=== PATIENT | male | born 1945 | race Caucasian/White ===

== ENCOUNTER → 2017-09-15 | Outpatient (CLI) | payer OTHER ==
[~2017-09-15] MED LIST: ASPI81TA28 PO; ATOR-24 PO; CITA40TA12 PO; CLOP1TAB15 PO; ENAL1TAB29 PO; FENO134C2 PO; FIBER THERAPY PO; LEVO25TA5 PO; METF-384 PO; RXC5 PO; SITA100T3 PO; TRAM-10 PO; ZOLP5TAB PO
--- NOTE | 2017-09-15 11:47 | DIAGNOSTIC IMAGING REPORT ---
L-SPINE MIN 4 VIEWS ROUTINE CLINICAL HISTORY: 72 years-old Male presenting with LUMBAGO. TECHNIQUE: Frontal, bilateral oblique, lateral, and coned in lateral views of the lumbar spine were obtained. COMPARISON: None. FINDINGS: No scoliosis. Normal lumbar lordosis. Vertebral bodies maintain normal height and alignment. Intervertebral disc height loss noted at L4-5 and L5-S1, where there are the greatest degenerative changes in the lumbar spine. At these levels, osteophytosis and facet arthropathy noted. This appears to result in osseous neural foraminal narrowing at L4-5 and L5-S1. Degenerative changes also noted at T11-12 and T12-L1. No radiographic evidence of a compression deformity or subluxation. Splenic arterial calcifications noted. Multiple coil chris evidence of prior hernia repair. Nonobstructive bowel gas pattern. Atherosclerosis. IMPRESSION: Degenerative changes of the lumbar spine primarily at L4-5 and L5-S1, where there is suspected osseous neural foraminal narrowing. Electronically signed by: Giovanni Owen M.D. 09/15/2017 11:46 AM Dictated Date/Time: 09/15/2017 11:43 AM
== END | disposition home or self-care (01) ==
LOC: C.RADBC 11:12
PROVIDERS: ATTEND Physician Assistant Medical
DX: M54.5 Low back pain (principal); M51.36 Other intervertebral disc degeneration, lumbar region; M51.37 Other intervertebral disc degeneration, lumbosacral region

== ENCOUNTER → 2017-09-27 | Outpatient (CLI) | payer OTHER ==
--- NOTE | 2017-09-27 20:01 | DIAGNOSTIC IMAGING REPORT ---
MRI OF THE LUMBAR SPINE WITHOUT IV CONTRAST CLINICAL HISTORY: Low back pain. Right-sided sciatica. COMPARISON STUDY: Radiographs of the lumbar spine dated 09/15/2017. TECHNIQUE: MRI of the lumbar spine is performed utilizing various T1 and T2-weighted sequences in the axial and sagittal planes. IV contrast was not administered for this examination. The examination is modestly degraded by motion artifact. FINDINGS: Lumbar spine: Marrow signal intensity is heterogeneous. Vertebral body height is maintained throughout the lumbar spine. Minimal retrolisthesis is seen at T12-L1 and L1-L2. There is straightening of the lumbar lordosis. Anterior osteophytes are seen throughout. The transverse and spinous processes appear intact. There is no evidence of spondylolysis. Chronic multilevel degenerative endplate change is seen at all levels. Advanced endplate edema is seen at T12-L1 and L4-L5. Mild endplate edema is seen at L1-L2 and L3-L4. Intervertebral discs: Degenerative disc desiccation is seen throughout the lumbar spine. Moderate disc space narrowing seen at all levels, with jpbntxed-wv-oyvdvx narrowing seen at L1-L2, L4-L5, and L5-S1. Spinal cord: The visualized spinal cord is normal in morphology and signal intensity. The conus medullaris terminates at the level of L1. The nerve roots of the cauda equina are normal in morphology. T12-L1: There is posterior disc bulge with annular fissure. No significant central canal stenosis is seen. There is mild right-sided subarticular stenosis which may impinge on the exiting T12 nerve root. The neural foramina are patent. L1-L2: There is broad-based posterior disc bulge. No significant acquired compromise of the central canal is identified. There is bilateral subarticular stenosis, left greater than right. Facet arthropathy causes mild left-sided neural foraminal stenosis. L2-L3: The central canal and neural foramina are patent. Facet arthropathy is of no consequence. Lateral disc bulge causes minimal bilateral subarticular stenosis. L3-L4: There is a small posterior disc herniation with annular fissure. In conjunction with hypertrophy of the ligamentum flavum, there is joso-tl-bpsonzhh central canal stenosis at this level. The minimum AP diameter measures 6 mm. The central disc herniation impinges on the transiting nerve roots. There is bilateral subarticular stenosis, with possible impingement on the exiting bilateral L3 nerve roots. Facet arthropathy causes minimal bilateral neural foraminal stenosis. L4-L5: There is a small disc herniation eccentric to the right with annular fissure. There is only mild acquired compromise of the central canal at this level with a minimum AP diameter of 9 mm. There is obliteration of the right subarticular space with impingement of the exiting right L4 and the transiting right-sided nerve roots. There is also left-sided subarticular stenosis. Facet arthropathy causes puwcsrlq-md-kgurtc right and minimal left neural foraminal stenosis. L5-S1: There is a small central disc herniation with annular fissure. There is no significant acquired compromise of the central canal. This likely impinges on the nerve roots of the cauda equina centrally. There is bilateral subarticular stenosis, severe on the left with impingement of the exiting left L5 nerve root. Facet arthropathy causes severe left and moderate right neural foraminal stenosis. Sacrum: The visualized sacrum is normal in morphology and signal intensity. Soft tissues: There is fatty atrophy of the paraspinous musculature. Right renal cysts are observed. IMPRESSION: 1. Knugoonf-cz-jrwltrgj lumbosacral spondylosis with disc herniations at L3-L4, L4-L5, and L5-S1 as above. See discussion for detailed qgoyv-vg-ihoau analysis. 2. Advanced degenerative disc disease with multilevel endplate change/endplate edema. This is greatest at T12-L1. See above. 3. No destructive bony process is identified. Dictated: 09/27/2017 5:16 PM Transcribed: 09/27/2017 8:00 PM Win Electronically signed by: Holger Mora M.D. 09/27/2017 8:12 PM Dictated Date/Time: 09/27/2017 5:16 PM
== END | disposition home or self-care (01) ==
LOC: C.MRIBC 16:32
PROVIDERS: ATTEND Physician Assistant Medical
DX: M54.16 Radiculopathy, lumbar region (principal)

== ENCOUNTER → 2018-05-11 | Outpatient (CLI) | payer OTHER ==
[~2018-05-11] MED LIST changes: -FENO134C2 PO; +FENO145T26 PO; +OXYC1CAP5 PO; +PRD/1 PO; -RXC5 PO
--- NOTE | 2018-05-11 12:17 | DIAGNOSTIC IMAGING REPORT ---
CHEST 2 VIEWS ROUTINE CLINICAL HISTORY: Preoperative chest COMPARISON STUDY: No previous studies for comparison. FINDINGS: There are postsurgical changes of a midline sternotomy. The heart is normal in size. There is mild aortic tortuosity. There is no failure. There is no focal pulmonary consolidation. There are no pleural effusions. There are postsurgical changes involving the left shoulder.[ IMPRESSION: No active disease in the chest. Electronically signed by: Barrera Marin M.D. 05/11/2018 12:16 PM Dictated Date/Time: 05/11/2018 12:16 PM
[2018-05-11 12:39] LABS: INR 1.1 (0.9-1.1); PTT PATIENT 23.8 SECONDS (21.0-31.0)
== END | disposition home or self-care (01) ==
LOC: C.CPL 14:39
PROVIDERS: ATTEND Orthopaedic Surgery Orthopaedic Surgery of the Spine
DX: Z01.818 Encounter for other preprocedural examination (principal)

== ENCOUNTER 2018-05-23 05:11 | Observation (INO) | payer OTHER ==
[2018-05-04 12:59] VITALS: BMI 34.0
--- NOTE | 2018-05-10 12:27 | PAT Medication Instructions ---
Service Date May 10, 2018. Current Home Medication List Aspirin (Aspirin Ec), 81 MG PO HS Atorvastatin (Lipitor), 40 MG PO HS Citalopram Hydrobromide (Celexa), 40 MG PO QAM Clopidogrel (Plavix), 75 MG PO QAM Enalapril Maleate (Vasotec), 2.5 MG PO BID Fenofibrate (Tricor ), 134 MG PO QPM Levothyroxine Sodium (Levothyroxine Sodium), 1 TAB PO QAM Metformin Hcl (Glucophage), 1,000 MG PO BID Oxycodone Hcl (Oxycodone Hcl), 1 CAP PO UD PRN for Pain Prednisone (Prednisone), Unknown Dose PO UD Sitagliptin Phosphate (Januvia), 100 MG PO QAM Tramadol (Ultram), 50 MG PO for RN Zolpidem Tartrate (Ambien), 5 MG PO HS PRN for PRN [Fiber Therapy], 1 TAB PO BID Medication Instructions For Your Scheduled Surgery - Continue as directed: Prednisone (Prednisone), Unknown Dose PO UD - Check with surgeon and prescribing physician for instructions: Clopidogrel (Plavix), 75 MG PO QAM Aspirin (Aspirin Ec), 81 MG PO HS - Hold the following medications the morning of surgery: [Fiber Therapy], 1 TAB PO BID Sitagliptin Phosphate (Januvia), 100 MG PO QAM Metformin Hcl (Glucophage), 1,000 MG PO BID Enalapril Maleate (Vasotec), 2.5 MG PO BID - Take the following medications the morning of surgery with a sip of water: Oxycodone Hcl (Oxycodone Hcl), 1 CAP PO UD PRN for Pain (okay to take up to 4 hours prior to surgery if needed) Levothyroxine Sodium (Levothyroxine Sodium), 1 TAB PO QAM Citalopram Hydrobromide (Celexa), 40 MG PO QAM Tramadol (Ultram), 50 MG PO for RN(okay to take up to 4 hours prior to surgery if needed) - Hold the following medications as scheduled the night before surgery: Fenofibrate (Tricor ), 134 MG PO QPM - Take the following medications as scheduled the night before surgery: [Fiber Therapy], 1 TAB PO BID Tramadol (Ultram), 50 MG PO for RN (if needed) Zolpidem Tartrate (Ambien), 5 MG PO HS PRN for PRN (if needed) Oxycodone Hcl (Oxycodone Hcl), 1 CAP PO UD PRN for Pain (if needed) Metformin Hcl (Glucophage), 1,000 MG PO BID Atorvastatin (Lipitor), 40 MG PO HS Enalapril Maleate (Vasotec), 2.5 MG PO BID If you have any questions please call us at [phone] or [phone] or [phone]
[2018-05-11 11:57] VITALS: BMI 33.0
--- NOTE | 2018-05-20 16:50 | HISTORY & PHYSICAL EXAMINATION ---
DATE OF ADMISSION: 05/23/2018 CHIEF COMPLAINT: Back pain, lower extremity difficulty, paresthesias, numbness, and tingling. Working diagnosis of disk herniation of the spine. He has failed conservative care. MEDICAL HISTORY: Heart disease, diabetes, rheumatoid, high cholesterol, hypertension. PAST SURGICAL HISTORY: Bypass surgery, removal of a cyst. ALLERGIES: . FAMILY HISTORY: Heart disease and diabetes. SOCIAL HISTORY: . No alcohol, no tobacco. Moderately active. REVIEW OF SYSTEMS: He denies any fevers, sweats, chills. Ears, nose, and throat negative. Admits to some heart difficulties. Positive for change in bowel habits. Denies urgency, frequency. Denies memory loss, confusion. Admits to joint pain, weakness and muscle pain. MEDICATIONS: Includes fiber therapy, Plavix, Celexa, Synthroid, metoprolol, Ambien. PHYSICAL EXAMINATION: GENERAL: He is alert, oriented gentleman. VITAL SIGNS: Blood pressure 130/80, pulse 80, respirations 16. CARDIAC: Normal S1, S2, no S3. LUNGS: Clear to auscultation. No rales, rhonchi, wheezing. ABDOMEN: Soft, nontender. MUSCULOSKELETAL: He has 5/5 motor strength, some pain with straight leg raising. Slight limp, decreased range of motion, pain with percussion. Normal reflex examination. IMAGES: Demonstrate diskogenic issues of lumbar spine, L4-L5 stenosis, and herniation. PLAN: Includes a laminectomy and foraminotomy, L4-L5 lumbar spine.
[2018-05-23] VITALS (10 sets, daily range): BP systolic 114–150; BP diastolic 68–92; PULSE 71–88; TEMP 36.4–36.8; O2SAT 94–98; Ht 167.6 cm; Wt 92.5 kg
[~2018-05-23] VITALS: Ht 167.6 cm; Wt 92.5 kg
[2018-05-23] MEDS ORDERED: SODIUM CHLORIDE 0.9% 1000ML 1,000 ML IV SCH ×2 (06:00→09:05)
[2018-05-23] MEDS ORDERED: LACTATED RINGER'S 1000ML 1,000 ML IV SCH (06:00)
[2018-05-23] MEDS ORDERED: CEFAZOLIN 2000MG IV PUSH 15 ML IV SCH (06:00)
[2018-05-23] MEDS ORDERED: FENTANYL CITRATE INJ 50 MCG/1 ML 2 ML VIAL ONE ×2 (06:45→07:56)
[2018-05-23] MEDS ORDERED: MIDAZOLAM HCL 1 MG/ML 2ML VIAL ONE (06:45)
[2018-05-23] MEDS ORDERED: ROCURONIUM BROMIDE 10 MG/ML 5 ML VIAL ONE (06:47)
[2018-05-23] MEDS ORDERED: LIDOCAINE HCL 2% 2 ML VIAL (20MG/ML) ONE (06:47)
[2018-05-23] MEDS ORDERED: PROPOFOL IV EMULSION 10 MG/ML 20 ML VIAL ONE (06:47)
[2018-05-23] MEDS ORDERED: ONDANSETRON INJ 2 MG/ML 2 ML VIAL ONE (06:52)
[2018-05-23] MEDS ORDERED: DEXAMETHASONE SOD INJ 4 MG/ML VIAL ONE (06:52)
[2018-05-23] MEDS ORDERED: VANCOMYCIN HCL 1000MG/20ML VIAL ONE (07:17)
[2018-05-23] MEDS ORDERED: GELATIN SPONGE SZ 100 ONE (07:18)
[2018-05-23] MEDS ORDERED: BACITRACIN 50000 UNIT VIAL ONE (07:18)
[2018-05-23] MEDS ORDERED: BUPIVACAINE/EPINEPHRINE 0.5% MPF 1:200,000 30 ML VIAL ONE (07:18)
[2018-05-23] MEDS ORDERED: THROMBIN FOR SOLN 20000 UNIT KIT ONE (07:18)
--- NOTE | 2018-05-23 07:24 | History & Physical Bridge Note ---
H&P Re-Evaluation Bridge Note: I have examined the patient, reviewed the History & Physical and in the interval since the performance of the History & Physical I have noted the following changes of clinical significance: No changes noted
[2018-05-23] MEDS ORDERED: ONDANSETRON INJ 2 MG/ML 2 ML VIAL IV PRN ×2 (08:00→09:15)
[2018-05-23] MEDS ORDERED: ATROPINE SULFATE 0.1 MG/ML 5ML SYR IV PRN (08:00)
[2018-05-23] MEDS ORDERED: LABETALOL HCL IV 5 MG/ML 20ML IV PRN (08:00)
[2018-05-23] MEDS ORDERED: NEOSTIGMINE METHYLSULFATE 5 MG/5 ML SYR ONE (08:42)
[2018-05-23] MEDS ORDERED: GLYCOPYRROLATE INJ 0.2 MG/ML VIAL ONE (08:42)
--- NOTE | 2018-05-23 08:54 | DIAGNOSTIC IMAGING REPORT ---
INTRAOPERATIVE RADIOGRAPH CLINICAL HISTORY: L4-L5 laminectomy. Fluoroscopy time: 2 seconds. FINDINGS: A single spot fluoroscopic view of the lower lumbar spine is presented. Surgical probes project posteriorly from L3 to S1. IMPRESSION: Intraoperative image from L4 -L5 spinal fusion as above. Electronically signed by: Holger Mora M.D. 05/23/2018 8:53 AM Dictated Date/Time: 05/23/2018 8:52 AM
--- NOTE | 2018-05-23 09:00 | [facility] Post Operative Brief Note ---
Immediate Operative Summary Operative Date May 23, 2018. Pre-Operative Diagnosis Spinal Stenosis, Disc Herniation L4-5 Post-Operative Diagnosis Spinal Stenosis, Disc Herniation L4-5 Procedure(s) Performed L4-5 Laminectomy/Foraminotomy Surgeon Dr. Sibley Manufacturing Software Engineer Surgeon(s) Iftikhar Chang PA-C Estimated Blood Loss 75 cc Findings Consistent with Post-Op Diagnosis Specimens none per surgeon Anesthesia Type General Complication(s) none Overlapping Procedure I was immediately available: during the entire case
[2018-05-23] MEDS ORDERED: MAGNESIUM HYDROXIDE SUSP 30 ML UDC PO PRN (09:15)
[2018-05-23] MEDS ORDERED: METOCLOPRAMIDE HCL INJ 5 MG/ML 2 ML VIAL IV PRN (09:15)
[2018-05-23] MEDS ORDERED: ZOLPIDEM TARTRATE 5 MG TAB PO PRN (09:15)
[2018-05-23] MEDS ORDERED: LORAZEPAM 1 MG TAB PO PRN (09:15)
[2018-05-23] MEDS ORDERED: ACETAMINOPHEN 325 MG TAB PO PRN (09:15)
[2018-05-23] MEDS ORDERED: PROMETHAZINE HCL INJ 12.5 MG in SODIUM CHLORIDE 0.9% 50ML 50 ML IV PRN (09:15)
[2018-05-23] MEDS ORDERED: OXYCODONE/ACETAMINOPHEN 5-325 TAB PO PRN ×2 (09:15)
[2018-05-23] MEDS ORDERED: LORAZEPAM INJ 1 MG in SYRINGE 0 ML IV PRN (09:15)
[2018-05-23] MEDS ORDERED: HYDROmorphone INJ 1 MG/ML SYR IV PRN ×2 (09:15)
--- NOTE | 2018-05-23 09:16 | OPERATIVE REPORT ---
DATE OF OPERATION: 05/23/2018 PREOPERATIVE DIAGNOSIS: Spinal stenosis, lumbar spine. POSTOPERATIVE DIAGNOSIS: Same. PROCEDURE: Include a laminectomy, foraminotomy, partial facetectomy, decompression of neural elements bilaterally at L3-L4, L4-5 and L5-S1. COMPLICATIONS: Zero. ESTIMATED BLOOD LOSS: 75 mL SURGEON: Silvio Sibley DO BANK OFFICER: Iftikhar Chang PA-C. DESCRIPTION OF PROCEDURE: The patient was taken to the operating room, a general intubated anesthetic provided to the patient. Safely placed prone, scrubbed, prepped and draped sterile. Formal timeout provided. I assessed the patient preop. He had some stenosis up to the underside of 3-4, down to the upper side of 5-1. Thus I made a skin incision from 3 down to the sacrum dissecting the soft tissue, same plane and came down on the lamina 5-1, 4-5, 3-4 decompressed the neural elements very carefully and very safely. There was no injury to the dura or associated nerve roots. The foramen were probed and visualized and free of obstruction. We irrigated and closed in layers over vancomycin powder with 1 Vicryl, 2-0 and 3-0 nylon on the skin. Sterile dressings applied. The patient returned to PACU improved, stable condition. There were no apparent complications. Sponge and needle count correct at the close. No implants used. I attest to the content of the Intraoperative Record and any orders documented therein. Any exception s are noted below.
[2018-05-23] MEDS: HYDROmorphone INJ 2 MG/ML SYR/VIAL IV PRN ×4 (09:28→09:43)
--- NOTE | 2018-05-23 10:05 | Anesthesiology Progress Note ---
Anesthesia Post Op Note Date & Time May 23, 2018 at 10:04 Vital Signs Pain Intensity: 4 Vital Signs Past 12 Hours Date Time Temp Pulse Resp B/P (MAP) Pulse Ox O2 Delivery O2 Flow Rate FiO2 05/23/18 10:02 36.6 05/23/18 09:56 83 16 150/79 98 Nasal Cannula 4 05/23/18 09:46 90 16 169/90 98 Nasal Cannula 4 05/23/18 09:36 36.2 90 16 150/95 98 Nasal Cannula 4 05/23/18 09:26 87 16 142/89 98 Oxymask 10 05/23/18 09:16 90 16 148/84 97 Oxymask 10 05/23/18 09:08 36.2 102 16 143/87 94 Oxymask 10 05/23/18 05:55 36.5 71 20 114/90 (98) 95 Room Air Notes Mental Status: alert / awake / arousable, participated in evaluation Pt Amnestic to Procedure: Yes Nausea / Vomiting: adequately controlled Pain: adequately controlled Airway Patency, RR, SpO2: stable & adequate BP & HR: stable & adequate Hydration State: stable & adequate Anesthetic Complications: no major complications apparent
[2018-05-23] MEDS ORDERED: IV FLUIDS COMPLETED PRN (11:30)
--- NOTE | 2018-05-23 14:02 | Discharge Instructions ---
Discharge Instructions Date of Service May 23, 2018. Admission Reason for Admission: Spinal Stenosis, Disc Herniation Discharge Discharge Diagnosis / Problem: same Discharge Goals Goal(s): Improve function Activity Recommendations Activity Limitations: as noted below Lifting Limitations: until after follow-up appointment Exercise/Sports Limitations: until after follow-up appointment Shower/Bathe: keep incision dry . Instructions / Follow-Up Instructions / Follow-Up MEDICATIONS: Please take your prescriptions as instructed at your pre-op appointment. SPECIAL CARE: The following information is intended to answer some of the common questions and concerns regarding your surgery. Each patient is an individual and receives individual counselling throughout the course of treatment, from diagnosis to surgery all the way through recovery. What follows is not an exhaustive list, but should be a useful guide to some of the common questions and concerns patients have regarding their surgeries. These are not provided to keep you from calling us; rather, they give you something accurate and concrete to reference as you recover from your procedure. If you need us, we are available to you. As always, if you are not sure about something, call us at [phone]. MEDICAL EMERGENCIES: For these conditions, call 911 or go to your local hospital-based Emergency Department - not [facility] or equivalent. * Paralysis * Severe chest pain or difficulty breathing * Swelling or redness of either leg Spine procedures can be rather complex and though complications are rare, they do occur. In such cases, effective advice regarding emergency situations cannot always be addressed over the telephone. You may be referred to the emergency department for more effective management of your problem. Activity Limitations: It is important to give your body time to heal, so please limit your activities : * In general, don't do anything that moves your spine too much. You should avoid contact sports, twisting or heavy lifting while you recover. * 5-10 pounds is all you should attempt to lift. * You should not plan on driving for approximately 3 weeks and you should avoid traveling more than 30-45 minutes at a time. Longer trips should be broken down with walking breaks spaced appropriately. * Physical therapy is not usually required. * Walking and good posture practices will help you recover and regain your function. * Avoid straining or sudden changes in position. * In general, the goal is to take it easy and recover. Don't cause any new problems. Just relax. Showers: * Do not take a bath, use a Jacuzzi or hot tub or otherwise submerge your incision. * It is usually safe to take a shower 4-5 days after your surgery. * Your incision does not require any special creams or ointments. * Simply clean it with soap and water, dry and re-dress with a clean bandage afterwards. Incision: * Keep incision clean, dry and protected until your first follow-up appointment. * Some amount of drainage and redness is normal. Any drainage should be fairly clear and not have a foul odor. * If you feel anything is wrong or you have excessive drainage, please call us. * Your stitches and chris will be removed 10-14 days after your surgery. At the time of your first post-op visit. * Neck surgeries are typically closed with a suture underneath the skin. The steri-strips over the incision should be maintained until we see you in the office. Bracing: * You may be provided with a back or neck brace to encourage good posture and prevent injury. It will remind you not to do too much as you heal and will alert others to the fact that you have had a surgery. * Back braces may be removed for showers and when you are resting at home. They must be worn when you are walking around for any period of time or for travel. * For neck surgery, you will likely be provided with two cervical collars. The soft collar ([place] or foam rubber) is worn most commonly throughout the day and while sleeping. The plastic collar (provided at the hospital) is for showering/bathing. * Except while eating, collars should remain in place. More specifically, bracing is provided for a purpose and should be worn. * Please obtain your brace or collars prior to your operation and bring them to the hospital with you on the day of surgery. * You should also bring your collars to your post-op appointment with Dr. Sibley. You should always take good care of your body and practice healthy habits, especially following surgery. You should: * Follow your doctor's treatment plan * Sit and stand properly with good posture (ears over shoulders, shoulders over hips) Don't slouch * Learn to lift correctly * Exercise regularly (low-impact aerobic exercise is especially good, but check with your doctor first) * Generally, be up and walking for 5-10 minutes at a time at least 3-4 times per day from the day you get home * Increasing walking to tolerance until you can walk for 20-30 minutes at a time * Attain and maintain a healthy body weight * Eat healthy foods ( a well-balanced, low-fat diet rich in fruits and vegetables) and get enough calcium * Avoid excessive use of alcohol When to call our office - If you notice any of the following: * Increased pain not relieve by pain medicine * Fevers greater then 100 degrees F, chills or flu symptoms * Increased redness around incision * Drainage from the incision that is not clear * Any foul smelling drainage * Swelling or fluid collection beneath the skin Miscellaneous: * In the hospital, you may be given a walker or cane for support while walking. These are temporary needs and are intended to prevent injuries due to falls. You may discontinue them when you feel strong and steady enough on your feet. * Sleep in a comfortable position. We find that many patients find a lounge chair or recliner with several pillows to be beneficial in the early post-operative period. * The support stockings should be used for 7-10 days and may be discontinued when you are back to walking more and conducting usual household activities. No problem is insignificant. We are here to help you and get you well. Contact us at [phone]. Definitions: Foraminotomy: If part of the disc or a bone spur (osteophyte) is pressing on a nerve as it leaves the vertebra (through an exit called the foramen), a foraminotomy may be done. Otomy means "to make an opening." A foraminotomy is making the opening of the foramen larger, so the nerve can exit without being compressed. Laminotomy: Similar to the foraminotomy, a laminotomy makes a larger opening, this time in your bony plate protecting your spinal canal and spinal cord (the lamina). The lamina may be pressing on your nerve, so the surgeon may make more room for the nerves using a laminotomy. Laminectomy: Sometimes, a laminotomy is not sufficient. The surgeon may need to remove all or part of the lamina. This procedure is called a laminectomy. This can often be done at many levels without any harmful effects. Current Hospital Diet Patient's current hospital diet: Diabetes Type 2 Diet Discharge Diet Recommended Diet: Diabetes Type 2 Diet Procedures Procedures Performed: L4-5 Laminectomy/Foraminotomy Pending Studies Studies pending at discharge: no Medical Emergencies . Who to Call and When: Medical Emergencies: If at any time you feel your situation is an emergency, please call 911 immediately. . Non-Emergent Contact Non-Emergency issues call your: Primary Care Provider . "Provider Documentation" section prepared by Silvio Sibley. .
[2018-05-23] MEDS ORDERED: HYDR-4383 PO (14:04)
[2018-05-23] MEDS ORDERED: PHARMACY GLYCEMIC MGMT CONSULT PRN (15:39)
[2018-05-23] MEDS: DEXAMETHASONE INJ 10 MG in SYRINGE 0 ML IV SCH (16:17)
[2018-05-23] MEDS: CEFAZOLIN IV 2,000 MG in SYRINGE 0 ML IV SCH (16:17)
[2018-05-23] MEDS ORDERED: GLUCOSE 40% GEL 15 GM TUBE PO PRN (16:30)
[2018-05-23] MEDS ORDERED: GLUCOSE 10 TABS/TUBE PO PRN (16:30)
[2018-05-23] MEDS ORDERED: DEXTROSE 50% 50 ML SYR IV PRN (16:30)
[2018-05-23] MEDS ORDERED: GLUCAGON FOR INJ 1 MG VIAL IM PRN (16:30)
[2018-05-23] MEDS ORDERED: CARBOHYDRATES FOR HYPOGLYCEMIA PO PRN (16:30)
[2018-05-23] MEDS ORDERED: INSULIN GLARGINE SOLOSTAR 100 UNITS/ML 3 ML PEN SC SCH (17:15)
[2018-05-23] MEDS: INSULIN ASPART 100 UNITS/ML 3 ML PEN SC SCH ×2 (18:21→22:06)
[2018-05-23] MEDS ORDERED: ASPIRIN 81 MG ECTAB PO SCH (21:00)
[2018-05-23] MEDS ORDERED: ATORVASTATIN 40 MG TAB PO SCH (21:00)
--- NOTE | 2018-05-23 21:02 | Pharmacy Progress Note ---
Glycemic: Assessment & Plan Date of Service May 23, 2018. Assessment & Plan Item Value Date Time Bedside Glucose 228 mg/dl H 05/23/18 1708 Bedside Glucose 219 mg/dl H 05/23/18 1154 Bedside Glucose 184 mg/dl H 05/23/18 0913 Bedside Glucose 140 mg/dl H 05/23/18 0531 Pt's reported home diabetes regimen: * metformin 1000mg po BID * Januvia 100mg po daily Assessment: Pt is a type-2 diabetic and received DXM 8mg IV during surgery and ordered 10mg IV every 8 hours x 5 doses. Plan: * Basal insulin: Ordered Lantus 40 units sub-q x 1 today (based on a insulin calculator stress level ~2.5). * Correctional Insulin: Novolog Correction per scale ACHS & 0000/0400 Goal Range: Low 120 mg/dL - High 160 mg/dL Correction Factor: 20 mg/dL/unit (based on a insulin calculator stress level ~2.5) * Prandial insulin: Per carb ratio of 1 unit per 8 grams CHO consumed ( based on a insulin calculator stress level ~2.5) Pharmacy will continue to monitor patient daily and write orders per [facility], located within [facility] inpatient glycemic control protocol. Thanks. * Please note that the plan above was derived based on current level of insulin resistance and hospital stress. These recommendations are appropriate for inpatient admission only. Plan of care upon discharge will need to be reassessed to avoid potential outpatient hypo/hyperglycemia.
[2018-05-23] MEDS: ENALAPRIL MALEATE 5 MG TAB PO SCH (21:50)
[2018-05-23] MEDS: CALCIUM POLYCARBOPHIL 1 TAB PO SCH (21:50)
[2018-05-23] MEDS ORDERED: NURSING VERBAL MED ORDER ONE (22:15)
[2018-05-24] MEDS: INSULIN ASPART 100 UNITS/ML 3 ML PEN SC SCH ×4 (00:02→12:52)
[2018-05-24] MEDS: DEXAMETHASONE INJ 10 MG in SYRINGE 0 ML IV SCH ×2 (00:03→07:42)
[2018-05-24] MEDS: CEFAZOLIN IV 2,000 MG in SYRINGE 0 ML IV SCH ×2 (00:03→07:42)
[2018-05-24 03:55] VITALS: BP 109/66; PULSE 78; TEMP 36.5; O2SAT 97
[2018-05-24] MEDS ORDERED: LEVOTHYROXINE 25 MCG TAB PO SCH (06:00)
[2018-05-24] MEDS ORDERED: BISACODYL 10 MG SUPP PR PRN (06:00)
[2018-05-24] MEDS ORDERED: BISACODYL 5 MG TABEC PO PRN (06:00)
[2018-05-24 07:04] VITALS: BP 131/64; PULSE 87; TEMP 36.8; O2SAT 96
[2018-05-24] MEDS: CALCIUM POLYCARBOPHIL 1 TAB PO SCH (08:44)
[2018-05-24] MEDS: ENALAPRIL MALEATE 5 MG TAB PO SCH (08:45)
[2018-05-24] MEDS ORDERED: SITAGLIPTIN 100 MG TAB PO SCH (09:00)
[2018-05-24] MEDS ORDERED: INSULIN GLARGINE SOLOSTAR 100 UNITS/ML 3 ML PEN SC SCH (09:00)
[2018-05-24] MEDS ORDERED: CLOPIDOGREL BISULFATE 75 MG TAB PO SCH (09:00)
[2018-05-24] MEDS ORDERED: POLYETHYLENE (MIRALAX) 17 GM PACK PO SCH (09:00)
[2018-05-24] MEDS ORDERED: CITALOPRAM 40 MG TAB PO SCH (09:00)
[2018-05-24 09:57] VITALS: BP 131/64; PULSE 87; TEMP 36.8; O2SAT 96
--- NOTE | 2018-05-24 11:05 | DISCHARGE SUMMARY ---
SUBJECTIVE: He has improved, stable, minimal complaints, status post surgery. Ambulatory. No issues. No shortness of breath or chest pain. OBJECTIVE: Vital signs stable. ASSESSMENT: Status post spinal surgery. PLAN: Discharged home later today. Instructions and precautions given on numerous occasions. Medication provided. Followup provided. He will call if problems.
[2018-05-24 11:31] VITALS: BP 126/64; PULSE 84; TEMP 36.3; O2SAT 95
== END 2018-05-24 13:41 | disposition home or self-care (01) ==
LOC: C.ACU 05:11 → C.3E 09:09 → ENRESERV 09:23
PROVIDERS: ADMIT Orthopaedic Surgery Orthopaedic Surgery of the Spine; ATTEND Orthopaedic Surgery Orthopaedic Surgery of the Spine
DX: M48.061 Spinal stenosis, lumbar region without neurogenic claudication (principal); E11.9 Type 2 diabetes mellitus without complications; I25.2 Old myocardial infarction; Z95.1 Presence of aortocoronary bypass graft; I10 Essential (primary) hypertension; Z87.891 Personal history of nicotine dependence; Z86.73 Personal history of transient ischemic attack (TIA), and cerebral infarction without residual deficits; E03.9 Hypothyroidism, unspecified; E78.00 Pure hypercholesterolemia, unspecified; Z79.02 Long term (current) use of antithrombotics/antiplatelets; Z79.899 Other long term (current) drug therapy

== ENCOUNTER 2021-09-23 12:14 | Observation (INO) ==
[2021-09-23 12:53] LABS: Hematocrit (blood only) 39.7 % (42-52); Hemoglobin 13.8 g/dL (14.0-18.0); Mean Corpuscular Hgb Conc 34.8 g/dL (32-36); Mean Corpuscular Volume 89.2 fL (80-100); Mean Platelet Volume 11.8 fL (7.4-10.4); Platelet Count 159 K/uL (130-400); RDW Coefficient of Variation 13.6 % (11.5-14.5); RDW Standard Deviation 44.6 fL (36.4-46.3); Red Blood Count 4.45 M/uL (4.7-6.1)
[2021-09-23 13:07] LABS: INR 1.1 (0.9-1.1); Partial Thromboplastin Time 27.3 Seconds (21.0-31.0); Prothrombin Time 11.3 Seconds (9.0-12.0)
[2021-09-23 13:16] LABS: Albumin Level 3.9 gm/dl (3.4-5.0); BUN Creatinine Ratio 15.7 (10-20); Calcium 9.5 mg/dl (8.5-10.1); Creatinine Clr Calc Pharmacy 65.2 ml/min; Est GFR (Non-African American) 67.3 ml/min; Potassium 4.1 mmol/L (3.5-5.1)
[2021-09-23 13:19] LABS: Albumin Globulin Ratio 1.1 (0.9-2); Bilirubin,Total 0.9 mg/dl (0.2-1); Globulin 3.7 gm/dl (2.5-4.0); Total Protein 7.6 gm/dl (6.4-8.2)
[2021-09-23] MEDS ORDERED: cefTRIAXone SODIUM 1,000 MG/50 ML BAG IV STA (14:22)
[2021-09-23] MEDS ORDERED: PANTOprazole 80 MG in DEXTROSE 5% 100 ML IV ONE (14:22)
[2021-09-23] MEDS ORDERED: PANTOPRAZOLE BOLUS/DRIP 1 EA IV STA (14:22)
[2021-09-23] MEDS ORDERED: FAMOTIDINE 20MG IV PUSH 20 MG/5 ML SYR IV STA (14:22)
[2021-09-23] MEDS ORDERED: ONDANSETRON INJ 2 MG/ML 2 ML VIAL IV STA (14:24)
--- NOTE | 2021-09-23 14:55 | CT Scan Report ---
CT abd pelvis wo con CLINICAL HISTORY: Bilateral flank pain. Bloody stool. Nausea. COMPARISON STUDY: No previous studies for comparison. CT DOSE: 985.36 mGy.cm TECHNIQUE: Standard CT of the Abdomen and Pelvis was performed without IV contrast. The patient did not receive oral contrast. A dose lowering technique was utilized adhering to the principles of NEAL [place] FINDINGS: Lung base: The lung bases are clear. There is mild coronary artery calcification. Abdominal cavity: There is no evidence for abdominal mass, adenopathy or ascites. There is a small le ft inguinal hernia containing peritoneal fat. Liver: The liver is homogeneous in attenuation on these limited noncontrast images.. Spleen: The spleen is homogeneous in attenuation on these limited noncontrast images. Pancreas: The pancreas is homogeneous in attenuation on these limited noncontrast images. Gall Bladder: The gallbladder is well distended with no evidence for cholelithiasis, wall thickening or pericholecystic edema.. Adrenal glands: The adrenal glands are normal in size and attenuation on these limited noncontrast im ages. Kidneys: The kidneys are homogeneous in attenuation on these limited noncontrast images. There is no evidence for gross renal mass, calculus or hydronephrosis bilaterally. Bowel: The bowel loops are normally placed within the abdomen and pelvis without evidence for dilatat ion or obstruction. There is diverticulosis of the descending and sigmoid colon without evidence for diverticulitis. However, there is diffuse mucosal thickening which cannot be fully evaluated due to l ack of distention with oral contrast. There are no inflammatory changes present. There is no evidence for free air. There is no evidence for an inflamed appendix. Bladder: There is distention of the urinary bladder with no evidence for focal bladder wall thickenin g, calculus or diverticulum. : There is no evidence for pelvic mass or adenopathy. The prostate is mildly enlarged. Vasculature: There is no evidence for focal aneurysmal dilatation of the abdominal aorta. Atheroscler otic calcification is present. Osseous structures: There is no acute osseous pathology. Degenerative changes are seen throughout the lumbar spine. IMPRESSION: 1. Diverticulosis without evidence for diverticulitis. However, there is prominent mucosal thickening of the sigmoid colon which cannot be fully evaluated due to lack of distention with oral contrast. 2. Otherwise, no acute intra-abdominal or pelvic abnormality on these limited noncontrast images. 3. Negative kidneys. 4. Distention of the bladder. 5. Additional nonacute findings are delineated above. ACT 112: Negative or not required by law. Electronically signed by: Lefty Carcamo M.D. 09/23/2021 2:53 PM
[2021-09-23] MEDS ORDERED: DICYCLOMINE HCL 10 MG CAP PO PRN (15:45)
[2021-09-23] MEDS: PANTOprazole 40 MG in DEXTROSE 5% 100 ML IV SCH ×2 (15:45→21:28)
--- NOTE | 2021-09-23 15:47 | Gastrointestinal Consultation ---
Date of Consultation September 23, 2021 Assessment & Plan (1) Rectal bleeding: (2) Abdominal pain: (3) Nausea & vomiting: Pt is a 76 yo male w symptoms of n/v, abd pain, bloating, black stools yesterday (likely related to Peptobismol use) and rectal bleeding today. + mild anemia but normal BUN. CT w/o acute findings. Hx of hiatal hernia, gastritis, int hemorrhoids, L sided diverticuli DDx: PUD, gastroenteritis, diverticular and hemorrhoidal bleeding - Monitor blood ct and transfuse prn - Cover with PPI BID - CL diet today, NPO after midnight for possible EGD tomorrow if blood ct dropping and continued s/s of GI bleeding - Stool cx and Cdiff checks - Dicyclomine 10mg TID prn abd cramping - Symptomatic management otherwise Supervising Physician Co-Signing Physician Notes 76 yo male admitted with symptoms of nausea/vomiting, gas, bloating, reported black pellet stools then rectal bleeding that was bright today. Took Peptobismol recently for his symptoms. No prior use of blood thinners in 10 years abd - protuberant, soft, prior abd surgical scars Labs reviewed- no bun rise, slightly low hgb 13.8 CT A/P reviewed Agree with further plan of care as above. History of Present Illness Reason for Consultation: N/V, Abd pain, rectal bleeding Requesting Physician: Aurora POWERS Attending Physician: Dr. Mily Cameron History of Present Illness Pt is a 76 y/o male who presented to ED w c/o abdominal discomfort, n/v, bloating in the last 4 days. He had taken Peptobismol couple of days ago. His stools yesterday was black, semi formed. This this AM he started having rectal bleeding. He denies fever, chills. Denies sick contact, raw/undercooked foods, antibx. Pt takes ASA 81mg daily, no anticoagulants. Workup in admission showed mild anemia w H/H 13.8/39.7. Normal BUN. CT abd/pelvis wo contrast showed diverticulosis in L colon but no diverticulitis. No other acute findings noted. Prior EGD/Colonoscopy reviewed done recently in 2019 - gastritis, hiatal hernia, diverticulosis and int hemorrhoids. Denies tobacco, ETOH, illicit drug uses. No NSAIDs Allergies Allergy/AdvReac Type Severity Reaction Status Date / Time niacin Allergy Unknown ITCHY Verified 09/23/21 14:53 SPLOTCHY Home Medications Medication Instructions Recorded Confirmed Type aspirin 81 mg tablet,delayed 81 mg PO DAILY 12/18/20 09/23/21 History release (Aspirin Low Dose) atorvastatin 40 mg tablet (Lipitor) 40 mg PO DAILY 12/18/20 09/23/21 History citalopram 40 mg tablet (Celexa) 20 mg PO DAILY 12/18/20 09/23/21 History enalapril maleate 2.5 mg tablet 2.5 mg PO BID 12/18/20 09/23/21 History (Vasotec) levothyroxine 25 mcg capsule 25 mcg PO DAILY 12/18/20 09/23/21 History metformin 500 mg tablet 1,000 mg PO DAILY 08/12/21 09/23/21 History cyanocobalamin (vitamin B-12) 1,000 mcg PO DAILY 09/23/21 09/23/21 History 1,000 mcg tablet empagliflozin 10 mg tablet 10 mg PO DAILY 09/23/21 09/23/21 History (Jardiance) fenofibrate micronized 134 mg 134 mg PO DAILY 09/23/21 09/23/21 History capsule metoprolol tartrate 50 mg tablet 50 mg PO BID 09/23/21 09/23/21 History omeprazole 20 mg tablet,delayed 20 mg PO DAILY 09/23/21 09/23/21 History release psyllium husk 0.4 gram capsule 0.4 g PO DAILY 09/23/21 09/23/21 History (Fiber (psyllium husk)) semaglutide (Ozempic) 0.25 mg SUBCUT WK 09/23/21 09/23/21 History sildenafil 100 mg tablet (Viagra) 100 mg PO UD 09/23/21 09/23/21 History Patient History Medical History 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 Surgical History H/O heart artery stent Family History Other Diabetes Heart disease Social History Smoking Status: Never smoker marital status: Current Living Situation: Spouse current occupational status: retired Feels Safe at Home: Yes Review of Systems Review of Systems: All systems reviewed & are unremarkable except as noted in HPI & below Physical Exam Constitutional: WD/WN, vitals as above well groomed, cooperative and comfortable Eyes: PERRL, conjunctivae normal, anicteric sclerae ENMT: external ear and nose normal, oropharynx normal Respiratory: normal respiratory effort, lungs clear to auscultation Cardiovascular: RRR, no murmur, no edema Gastrointestinal (Abdomen): Soft, BS present, RUQ TTP Skin: no rashes, warm and dry no jaundice Psychiatric: A+Ox3, euthymic affect Lymphatic: no lymphedema Results & Data ([facility]) Vital Signs (Past 12 Hours) Vital Signs Temp Pulse Pulse Resp BP Pulse Ox 09/23/21 14:32 96 09/23/21 14:15 61 19 130/99 96 09/23/21 12:30 129/75 09/23/21 12:26 36.6 C 64 18 96
--- NOTE | 2021-09-23 16:40 | Electrocardiogram Report ---
Test Reason : Blood Pressure : / mmHG Vent. Rate : 066 BPM Atrial Rate : 066 BPM P-R Int : 170 ms QRS Dur : 096 ms QT Int : 388 ms P-R-T Axes : 054 -07 061 degrees QTc Int : 406 ms Normal sinus rhythm Anteroseptal infarct , age undetermined Abnormal ECG When compared with ECG of 14-NOV-2015 10:32, Anteroseptal infarct is now Present Confirmed by Burak Kapoor ([id number]) on 09/23/2021 4:40:08 PM Referred By: Confirmed By:Burak Kapoor
--- NOTE | 2021-09-23 17:47 | XRay Report ---
XR ribs RT min 2V w CXR1V CLINICAL HISTORY: Right rib pain. Evaluate for fracture. COMPARISON: Chest radiograph May 11, 2018. FINDINGS: Left shoulder arthroplasty, median sternotomy wires and mediastinal surgical clips are inci dentally noted. Lung volumes are diminished. There is no pneumothorax or pleural effusion. There is n o consolidation to suggest pneumonia. No acute right rib fractures are identified. Prominence of the cardiac silhouette is accentuated on this exam. IMPRESSION: No pneumothorax. No acute right rib fractures. ACT 112: Negative or not required by law. Electronically signed by: Wilfredo Ruiz M.D. 09/23/2021 5:45 PM
--- NOTE | 2021-09-23 17:48 | Emergency Department Note ---
Impression & Plan Acute GI bleeding ED Provider Note INFORMANT: Patient ED PROVIDER(S): Sivlio Garza MD CHIEF COMPLAINT: Black tarry stools PLAN: Disposition: Admitted Condition: Good Outpatient prescription management: none Referral: None MEDICAL DECISION MAKING: Patient presented because of symptoms concerning for GI bleed. He was Hemoccult positive on physical examination. He was treated with nausea medication, fluids, Protonix and Pepcid, and Rocephin. He had a mild anemia on CBC. Patikevin arreguin's blood work was otherwise unremarkable. In light of his melanotic stools and duration of symptoms further management in the hospital was felt to be appropriate. [facility] Evaluated and evaluated for further management. Triage Nursing notes reviewed and agree them. Vital Signs: reviewed and remarkable for no significant abnormalities Differential diagnosis: peptic ulcer disease, variceal bleed, gastritis, Diverticulosis, AVM, coagulopathy, colitis, inflammatory bowel disease, malignancy, Denisse-Wilson tear, esophagitis, epistaxis, fissure, hemorrhoids, as well as other pathologies. Diagnostics interpreted by me: EC Lead ECG performed and revealed Normal sinus rhythym at 66, normal [place], QRS normal duration. Anteroseptal Q waves present. No elevation or depression. No PACs or PVCs. Cardiac Monitoring: Cardiac monitoring ordered by me: The patient was placed on continuous cardiac monitoring and observed. It revealed a normal sinus rhythm at 61 beats per minute without ectopy or evidence of dysrhythmia. Imaging studies: CT imaging of the abdomen pelvis is negative for acute pathology. HPI: The patient is a 76 year old male who presents to the Emergency Room with complaints of black and tarry stools. This started 4 days ago and is persisting. The patient also notes the following associated symptoms, developing bloody stools this morning, nausea, flank pain. The patient has tried Pepto-Bismol relieving factors. Current pain is rated as 4/10. Pt denies LOC, headache, fevers, chills, diaphoresis, visual changes, neck pain, chest pain, breathing difficulties, vomiting, urinary symptoms, numbness, weakness, lymphadenopathy, rash, or other complaints. ROS: See above HPI for pertinent positives & negatives. A total of 10 systems reviewed and were otherwise negative. PAST MEDICAL HISTORY:See Below , CAD PAST SURGICAL HISTORY:See Below, coronary stent, cardiac bypass FAMILY HISTORY:See Below SOCIAL HISTORY:See Below, HOME MEDICATIONS:See Below ALLERGIES:See Below VITALS:See Below PHYSICAL EXAMINATION: GENERAL: Awake, alert, uncomfortable-appearing, in no distress HENT: Normocephalic, atraumatic. Oropharynx unremarkable. EYES: Normal conjunctiva. Sclera non-icteric. NECK: Inspection normal. Non-tender. Supple. No nuchal rigidity. FROM. No masses. RESPIRATORY: Clear to auscultation. No wheezes. No rales. Normal respiratory effort. CARDIAC: Normal rate. Normal rhythm. No murmurs. No rubs. Extremities warm and well perfused. Pulses equal. No JVD. GI: Soft, non-distended. No tenderness to palpation. No rebound or guarding. No masses. RECTAL: Brownish-pink stool Hemoccult positive. MUSCULOSKELETAL: Atraumatic. Chest examination reveals no tenderness. The back is symmetrical on inspection without obvious abnormality. There is no CVA tenderness to palpation. No joint edema. LOWER EXTREMITIES: Calves are equal size bilaterally and non-tender. No edema. No discoloration. NEURO: Normal sensorium. No sensory or motor deficits noted. SKIN: No rash or jaundice noted. 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 Surgical History H/O heart artery stent Family History Other Diabetes Heart disease Social History Smoking Status: Never smoker marital status: Current Living Situation: Spouse current occupational status: retired Feels Safe at Home: Yes Allergies Allergies Allergy/AdvReac Type Severity Reaction Status Date / Time niacin Allergy Unknown ITCHY Verified 09/23/21 14:53 SPLOTCHY Home Meds Home Medications Medication Instructions Recorded Confirmed aspirin 81 mg tablet,delayed 81 mg PO DAILY 12/18/20 09/23/21 release (Aspirin Low Dose) atorvastatin 40 mg tablet (Lipitor) 40 mg PO DAILY 12/18/20 09/23/21 citalopram 40 mg tablet (Celexa) 40 mg PO DAILY 12/18/20 09/23/21 enalapril maleate 2.5 mg tablet 2.5 mg PO BID 12/18/20 09/23/21 (Vasotec) levothyroxine 25 mcg capsule 25 mcg PO DAILY 12/18/20 09/23/21 metformin 500 mg tablet 500 mg PO BID 08/12/21 09/23/21 cyanocobalamin (vitamin B-12) 1,000 mcg PO DAILY 09/23/21 09/23/21 1,000 mcg tablet fenofibrate micronized 134 mg 134 mg PO DAILY 09/23/21 09/23/21 capsule metoprolol tartrate 50 mg tablet 50 mg PO BID 09/23/21 09/23/21 omeprazole 20 mg tablet,delayed 20 mg PO DAILY 09/23/21 09/23/21 release psyllium husk 0.4 gram capsule 0.4 g PO DAILY 09/23/21 09/23/21 (Fiber (psyllium husk)) semaglutide (Ozempic) 0.25 mg SUBCUT WK 09/23/21 09/23/21 sildenafil 100 mg tablet (Viagra) 100 mg PO UD 09/23/21 09/23/21 Results & Data (ED) Vital Signs Vital Signs - 24 hr 09/23/21 12:26 09/23/21 12:30 09/23/21 14:15 Temperature 36.6 C Temperature Source Temporal Artery Scan Pulse Rate 64 Pulse Rate [Apical] 61 Pulse Rhythm [Apical] Regular Respiratory Rate 18 19 Respiratory Depth Normal Blood Pressure [Left Arm] 129/75 130/99 Blood Pressure Mean [Left Arm] 93 109 Pulse Oximetry 96 96 Oxygen Delivery Method Room Air Room Air Sepsis Recent Fever Within 48 Hours No Sepsis New/Unexplained Change in Mental Status N/A Sepsis Action Taken by Nursing No Action Required 09/23/21 14:32 Temperature Temperature Source Pulse Rate Pulse Rate [Apical] Pulse Rhythm [Apical] Respiratory Rate Respiratory Depth Blood Pressure [Left Arm] Blood Pressure Mean [Left Arm] Pulse Oximetry 96 Oxygen Delivery Method Room Air Sepsis Recent Fever Within 48 Hours Sepsis New/Unexplained Change in Mental Status Sepsis Action Taken by Nursing Laboratory Data Result diagrams: 09/23/21 12:42 09/23/21 12:42 Lab Results 09/23/21 09/23/21 09/23/21 Range/Units 12:42 12:42 12:42 WBC 6.90 (4.8-10.8) K/uL RBC 4.45 L (4.7-6.1) M/uL Hgb 13.8 L (14.0-18.0) g/dL Hct 39.7 L (42-52) % MCV 89.2 (80-100) fL MCH 31.0 (25-34) pg MCHC 34.8 (32-36) g/dL RDW Std Deviation 44.6 (36.4-46.3) fL RDW Coeff of Guera 13.6 (11.5-14.5) % Plt Count 159 (130-400) K/uL MPV 11.8 H (7.4-10.4) fL PT 11.3 (9.0-12.0) Seconds INR 1.1 (0.9-1.1) APTT 27.3 (21.0-31.0) Seconds PTT Ratio 1.0 Sodium (136-145) mmol/L Potassium (3.5-5.1) mmol/L Chloride (98-107) mmol/L Carbon Dioxide (21-32) mmol/L Anion Gap (3-11) BUN (7-18) mg/dl Creatinine (0.6-1.4) mg/dl Est Cr Clr Drug Dosing ml/min Est GFR ( Amer) ml/min Est GFR (Non-Af Amer) ml/min BUN/Creatinine Ratio (10-20) Glucose (70-99) mg/dl Lactate (0.4-2.0) mmol/L Calcium (8.5-10.1) mg/dl Total Bilirubin (0.2-1) mg/dl AST (15-37) U/L ALT (12-78) Alkaline Phosphatase (45-117) U/L Total Protein (6.4-8.2) gm/dl Albumin (3.4-5.0) gm/dl Globulin (2.5-4.0) gm/dl Albumin/Globulin Ratio (0.9-2) POC Stool Occult Blood (Negative) SARS-CoV-2, RNA, NAAT (NEGATIVE) Blood Type O Positive Antibody Screen NEGATIVE 09/23/21 09/23/21 09/23/21 Range/Units 12:42 14:32 15:00 WBC (4.8-10.8) K/uL RBC (4.7-6.1) M/uL Hgb (14.0-18.0) g/dL Hct (42-52) % MCV (80-100) fL MCH (25-34) pg MCHC (32-36) g/dL RDW Std Deviation (36.4-46.3) fL RDW Coeff of Guera (11.5-14.5) % Plt Count (130-400) K/uL MPV (7.4-10.4) fL PT (9.0-12.0) Seconds INR (0.9-1.1) APTT (21.0-31.0) Seconds PTT Ratio Sodium 136 (136-145) mmol/L Potassium 4.1 (3.5-5.1) mmol/L Chloride 106 (98-107) mmol/L Carbon Dioxide 23 (21-32) mmol/L Anion Gap 7.0 (3-11) BUN 17 (7-18) mg/dl Creatinine 1.08 (0.6-1.4) mg/dl Est Cr Clr Drug Dosing 65.2 ml/min Est GFR ( Amer) 78.0 ml/min Est GFR (Non-Af Amer) 67.3 ml/min BUN/Creatinine Ratio 15.7 (10-20) Glucose 130 H (70-99) mg/dl Lactate 1.3 (0.4-2.0) mmol/L Calcium 9.5 (8.5-10.1) mg/dl Total Bilirubin 0.9 (0.2-1) mg/dl AST 32 (15-37) U/L ALT 40 (12-78) Alkaline Phosphatase 47 (45-117) U/L Total Protein 7.6 (6.4-8.2) gm/dl Albumin 3.9 (3.4-5.0) gm/dl Globulin 3.7 (2.5-4.0) gm/dl Albumin/Globulin Ratio 1.1 (0.9-2) POC Stool Occult Blood (Negative) SARS-CoV-2, RNA, NAAT NEGATIVE (NEGATIVE) Blood Type Antibody Screen 09/23/21 Range/Units 15:06 WBC (4.8-10.8) K/uL RBC (4.7-6.1) M/uL Hgb (14.0-18.0) g/dL Hct (42-52) % MCV (80-100) fL MCH (25-34) pg MCHC (32-36) g/dL RDW Std Deviation (36.4-46.3) fL RDW Coeff of Guera (11.5-14.5) % Plt Count (130-400) K/uL MPV (7.4-10.4) fL PT (9.0-12.0) Seconds INR (0.9-1.1) APTT (21.0-31.0) Seconds PTT Ratio Sodium (136-145) mmol/L Potassium (3.5-5.1) mmol/L Chloride (98-107) mmol/L Carbon Dioxide (21-32) mmol/L Anion Gap (3-11) BUN (7-18) mg/dl Creatinine (0.6-1.4) mg/dl Est Cr Clr Drug Dosing ml/min Est GFR ( Amer) ml/min Est GFR (Non-Af Amer) ml/min BUN/Creatinine Ratio (10-20) Glucose (70-99) mg/dl Lactate (0.4-2.0) mmol/L Calcium (8.5-10.1) mg/dl Total Bilirubin (0.2-1) mg/dl AST (15-37) U/L ALT (12-78) Alkaline Phosphatase (45-117) U/L Total Protein (6.4-8.2) gm/dl Albumin (3.4-5.0) gm/dl Globulin (2.5-4.0) gm/dl Albumin/Globulin Ratio (0.9-2) POC Stool Occult Blood Positive A (Negative) SARS-CoV-2, RNA, NAAT (NEGATIVE) Blood Type Antibody Screen Administered Medications Pantoprazole Sodium 40 mg/ (Dextrose) 100 mls @ 20 mls/hr IV Q5H SAIRA Stop: 10/23/21 14:44 Last Admin: 09/23/21 15:45 Dose: 8 mg/hr, 20 mls/hr Documented by: [id number] Discontinued Medications Pantoprazole Sodium (Protonix Bolus/Drip) 0 mls @ 1 mls/hr IV ONE STA Stop: 09/23/21 14:23 Last Admin: 09/23/21 15:52 Dose: Not Given Documented by: [id number] Pantoprazole Sodium 80 mg/ (Dextrose) 120 mls @ 400 mls/hr IV NOW ONE Stop: 09/23/21 14:39 Last Infusion: 09/23/21 16:24 Dose: 0 mls/hr Documented by: [id number] Admin: 09/23/21 15:45 Dose: 400 mls/hr Documented by: [id number] Famotidine (Pepcid 20mg Iv Push) 20 mg in 5 mls @ 2.5 mls/min IV NOW STA Stop: 09/23/21 14:23 Last Admin: 09/23/21 14:52 Dose: 2.5 mls/min Documented by: [id number] Ceftriaxone Sodium (Rocephin) 1,000 mg in 50 mls @ 100 mls/hr IV NOW STA Stop: 09/23/21 14:51 Last Infusion: 09/23/21 15:27 Dose: 0 mls/hr Documented by: [id number] Admin: 09/23/21 14:52 Dose: 100 mls/hr Documented by: [id number] Ondansetron HCl (Ondansetron Inj 2 Mg/Ml 2 Ml Vial) 4 mg IV NOW STA Stop: 09/23/21 14:25 Last Admin: 09/23/21 14:52 Dose: 4 mg Documented by: [id number] Imaging Data Radiologist's Impression: Abdomen/Pelvis CT 09/23/21 14:22 CT abd pelvis wo con CLINICAL HISTORY: Bilateral flank pain. Bloody stool. Nausea. COMPARISON STUDY: No previous studies for comparison. CT DOSE: 985.36 mGy.cm TECHNIQUE: Standard CT of the Abdomen and Pelvis was performed without IV contrast. The patient did not receive oral contrast. A dose lowering technique was utilized adhering to the principles of ALARA. FINDINGS: Lung base: The lung bases are clear. There is mild coronary artery calcification. Abdominal cavity: There is no evidence for abdominal mass, adenopathy or ascites. There is a small left inguinal hernia containing peritoneal fat. Liver: The liver is homogeneous in attenuation on these limited noncontrast im ages.. Spleen: The spleen is homogeneous in attenuation on these limited noncontrast images. Pancreas: The pancreas is homogeneous in attenuation on these limited noncontrast images. Gall Bladder: The gallbladder is well distended with no evidence for cholelithiasis, wall thickening or pericholecystic edema.. Adrenal glands: The adrenal glands are normal in size and attenuation on these limited noncontrast images. Kidneys: The kidneys are homogeneous in attenuation on these limited noncontrast images. There is no evidence for gross renal mass, calculus or hydronephrosis bilaterally. Bowel: The bowel loops are normally placed within the abdomen and pelvis without evidence for dilatation or obstruction. There is diverticulosis of the d escending and sigmoid colon without evidence for diverticulitis. However, there is diffuse mucosal thickening which cannot be fully evaluated due to lack of distention with oral contrast. There are no inflammatory changes present. There is no evidence for free air. There is no evidence for an inflamed appendix. Bladder: There is distention of the urinary bladder with no evidence for focal bladder wall thickening, calculus or diverticulum. : There is no evidence for pelvic mass or adenopathy. The prostate is mildly enlarged. Vasculature: There is no evidence for focal aneurysmal dilatation of the abdominal aorta. Atherosclerotic calcification is present. Osseous structures: There is no acute osseous pathology. Degenerative changes are seen throughout the lumbar spine. IMPRESSION: 1. Diverticulosis without evidence for diverticulitis. However, there is prominent mucosal thickening of the sigmoid colon which cannot be fully evaluated due to lack of distention with oral contrast. 2. Otherwise, no acute intra-abdominal or pelvic abnormality on these limited noncontrast images. 3. Negative kidneys. 4. Distention of the bladder. 5. Additional nonacute findings are delineated above. ACT 112: Negative or not required by law. Electronically signed by: Lefty Carcamo M.D. 09/23/2021 2:53 PM Discharge Plan Visit Data Chief Complaint: Rectal Bleed Stated Complaint: BLOODY STOOLS/NAUSEA/HEADACHE/EXTREME PAIN ED Provider: Silvio Garza Discharge Problem: Acute GI bleeding Discharge Instructions Interventions: ED Discharge Assessment Last Done: 09/23/21 17:46
[2021-09-23] MEDS ORDERED: ACETAMINOPHEN 325 MG TAB PO PRN (18:25)
[2021-09-23] MEDS ORDERED: GLUCAGON FOR INJ 1 MG VIAL SQ PRN (18:25)
[2021-09-23] MEDS ORDERED: GLUCOSE 40% GEL 15 GM TUBE PO PRN (18:25)
[2021-09-23] MEDS ORDERED: CARBOHYDRATES FOR HYPOGLYCEMIA PO PRN (18:25)
[2021-09-23] MEDS ORDERED: GLUCOSE 10 TABS/TUBE PO PRN (18:25)
[2021-09-23] MEDS ORDERED: DEXTROSE 50% 50 ML SYRINGE IV PRN (18:25)
[2021-09-23] MEDS ORDERED: ONDANSETRON INJ 2 MG/ML 2 ML VIAL IV PRN (18:25)
[2021-09-23] MEDS ORDERED: CYCLOBENZAPRINE HCL 10 MG TAB PO PRN (18:58)
--- NOTE | 2021-09-23 18:58 | History & Physical Report ---
Date of Service September 23, 2021 Assessment & Plan (1) Acute GI bleeding: Plan: -admit to med/surg -Patient presenting from home with reports of intractable nausea, black stools which transitioned to bright red bleeding per rectum today -In the ED, patient is hemodynamically stable. Hgb 13.8 (noted to be 12.9 on outpatient labs on 09/08). Continue to trend -S/p IV famotidine and Protonix bolus and drip in ED --> continue with Protonix drip -GI consult, case discussed with GIO Fragoso -Clear liquid diet, n.p.o. after midnight -Stool studies (2) CAD (coronary artery disease): Plan: -Appears stable -Initial troponin negative, EKG nonischemic -Patient was reporting chest pain however this was completely reproducible on exam (3) HTN (hypertension): Plan: -BP controlled, continue enalapril and metoprolol (4) Diabetes: Plan: -Hgb A1c 7.3 09/08 -Hold home Metformin and Ozempic and utilize NovoLog per protocol while hospitalized (5) Chronic back pain: Plan: -Has right low back paraspinal tenderness on exam -Follows with orthopedics and pain clinic -will trial as needed Flexeril (6) DVT prophylaxis: Plan: -SCDs due to GI bleeding Admission and Anticipated Discharge Date Admission Date: September 23, 2021 History of Present Illness Chief Complaint: Nausea, bright red bleeding per rectum Primary Care Provider: Neo Han MD 76-year-old male with PMH DM type II, hypothyroidism, history of CVA, HTN, CAD s/p CABG and stenting, and other problems to below who presents the ED for evaluation of persistent nausea and bright red bleeding per rectum. Past few days, he has had intractable nausea. He denies vomiting. He reports increased abdominal cramping and gas. Noted that stools were loose and black and this morning, he noted some bright red bleeding per rectum. He has been lightheaded and dizzy however denies any syncopal event. No chest pain. Struggles with chronic back pain and left shoulder pain. Follows with orthopedics in the pain clinic. No fevers or chills. Denies urinary symptoms. In the ED, patient is hemodynamically stable. Hgb 13.8. Stool is heme positive. Patient was given IV ceftriaxone, Protonix bolus and drip, IV famotidine, IV Zofran. Allergies Allergy/AdvReac Type Severity Reaction Status Date / Time niacin Allergy Unknown ITCHY Verified 09/23/21 14:53 SPLOTCHY Home Medications Medication Instructions Recorded Confirmed Type aspirin 81 mg tablet,delayed 81 mg PO DAILY 12/18/20 09/23/21 History release (Aspirin Low Dose) atorvastatin 40 mg tablet (Lipitor) 40 mg PO DAILY 12/18/20 09/23/21 History citalopram 40 mg tablet (Celexa) 40 mg PO DAILY 12/18/20 09/23/21 History enalapril maleate 2.5 mg tablet 2.5 mg PO BID 12/18/20 09/23/21 History (Vasotec) levothyroxine 25 mcg capsule 25 mcg PO DAILY 12/18/20 09/23/21 History metformin 500 mg tablet 500 mg PO BID 08/12/21 09/23/21 History cyanocobalamin (vitamin B-12) 1,000 mcg PO DAILY 09/23/21 09/23/21 History 1,000 mcg tablet fenofibrate micronized 134 mg 134 mg PO DAILY 09/23/21 09/23/21 History capsule metoprolol tartrate 50 mg tablet 50 mg PO BID 09/23/21 09/23/21 History omeprazole 20 mg tablet,delayed 20 mg PO DAILY 09/23/21 09/23/21 History release psyllium husk 0.4 gram capsule 0.4 g PO DAILY 09/23/21 09/23/21 History (Fiber (psyllium husk)) semaglutide (Ozempic) 0.25 mg SUBCUT WK 09/23/21 09/23/21 History sildenafil 100 mg tablet (Viagra) 100 mg PO UD 09/23/21 09/23/21 History Past Med/Surg History Medical History CAD (coronary artery disease) 1994-CABG x2 2004-MAYLIN to circumflex Cervical disc disorder at C5-C6 level with radiculopathy Chronic SI joint pain DDD (degenerative disc disease), lumbar Diabetes Foraminal stenosis of lumbar region L5-S1 Heart disease High blood pressure High cholesterol Lumbar back pain with radiculopathy affecting left lower extremity Rupture of hip abductor tendon Trochanteric bursitis of both hips Surgical History H/O heart artery stent H/O heart bypass surgery H/O laminectomy H/O shoulder replacement S/P hernia surgery Family History Other Diabetes Heart disease Social History Smoking Status: Former smoker Hx Alcohol Use: No Hx Substance Use: No Communication Ability: Effective Ratings Analyst Required: No Beliefs That Will Affect Care: None marital status: Current Living Situation: Spouse current occupational status: retired Feels Safe at Home: Yes Safety Concerns: Feels Safe At This Time Assistive Devices: None Review of Systems Review of Systems: ROS per HPI, all other systems reviewed and negative Physical Exam Physical Exam: please refer to Dr. Vasquez'a addendum for physical exam Results & Data Results & Data ([facility]) Vital Signs (Past 12 Hours) Vital Signs Temp Pulse Pulse Pulse Resp BP BP 09/23/21 18:10 36.8 C 71 18 132/79 09/23/21 17:46 67 18 131/79 09/23/21 16:00 61 15 122/81 09/23/21 14:32 09/23/21 14:15 61 19 130/99 09/23/21 12:30 129/75 09/23/21 12:26 36.6 C 64 18 Pulse Ox 09/23/21 18:10 98 09/23/21 17:46 99 09/23/21 16:00 97 09/23/21 14:32 96 09/23/21 14:15 96 09/23/21 12:30 09/23/21 12:26 96 Laboratory Results Short CBC 09/23/21 Range/Units 12:42 WBC 6.90 (4.8-10.8) K/uL Hgb 13.8 L (14.0-18.0) g/dL Hct 39.7 L (42-52) % Plt Count 159 (130-400) K/uL BMP 09/23/21 12:42 Sodium 136 Potassium 4.1 Chloride 106 Carbon Dioxide 23 BUN 17 Creatinine 1.08 Glucose 130 H Calcium 9.5 Cardiac Enzymes 09/23/21 Range/Units 16:58 Troponin I < 0.015 (0-0.045) ng/ml Liver Function 09/23/21 Range/Units 12:42 Total Bilirubin 0.9 (0.2-1) mg/dl AST 32 (15-37) U/L ALT 40 (12-78) Alkaline Phosphatase 47 (45-117) U/L Albumin 3.9 (3.4-5.0) gm/dl Diagnostic Findings Abdomen/Pelvis CT 09/23/21 14:22 CT abd pelvis wo con CLINICAL HISTORY: Bilateral flank pain. Bloody stool. Nausea. COMPARISON STUDY: No previous studies for comparison. CT DOSE: 985.36 mGy.cm TECHNIQUE: Standard CT of the Abdomen and Pelvis was performed without IV contrast. The patient did not receive oral contrast. A dose lowering technique was utilized adhering to the principles of ALARA. FINDINGS: Lung base: The lung bases are clear. There is mild coronary artery calcification. Abdominal cavity: There is no evidence for abdominal mass, adenopathy or ascites. There is a small left inguinal hernia containing peritoneal fat. Liver: The liver is homogeneous in attenuation on these limited noncontrast images.. Spleen: The spleen is homogeneous in attenuation on these limited noncontrast images. Pancreas: The pancreas is homogeneous in attenuation on these limited noncontrast images. Gall Bladder: The gallbladder is well distended with no evidence for cholelithiasis, wall thickening or pericholecystic edema.. Adrenal glands: The adrenal glands are normal in size and attenuation on these limited noncontrast images. Kidneys: The kidneys are homogeneous in attenuation on these limited noncontrast images. There is no evidence for gross renal mass, calculus or hydronephrosis bilaterally. Bowel: The bowel loops are normally placed within the abdomen and pelvis without evidence for dilatation or obstruction. There is diverticulosis of the descending and sigmoid colon without evidence for diverticulitis. However, there is diffuse mucosal thickening which cannot be fully evaluated due to lack of distention with oral contrast. There are no inflammatory changes present. There is no evidence for free air. There is no evidence for an inflamed appendix. Bladder: There is distention of the urinary bladder with no evidence for focal bladder wall thickening, calculus or diverticulum. : There is no evidence for pelvic mass or adenopathy. The prostate is mildly enlarged. Vasculature: There is no evidence for focal aneurysmal dilatation of the abdominal aorta. Atherosclerotic calcification is present. Osseous structures: There is no acute osseous pathology. Degenerative changes are seen throughout the lumbar spine. IMPRESSION: 1. Diverticulosis without evidence for diverticulitis. However, there is prominent mucosal thickening of the sigmoid colon which cannot be fully evaluated due to lack of distention with oral contrast. 2. Otherwise, no acute intra-abdominal or pelvic abnormality on these limited noncontrast images. 3. Negative kidneys. 4. Distention of the bladder. 5. Additional nonacute findings are delineated above. ACT 112: Negative or not required by law. Electronically signed by: Lefty Carcamo M.D. 09/23/2021 2:53 PM Ribs w/Chest X-Ray 09/23/21 16:08 XR ribs RT min 2V w [id number] CLINICAL HISTORY: Right rib pain. Evaluate for fracture. COMPARISON: Chest radiograph May 11, 2018. FINDINGS: Left shoulder arthroplasty, median sternotomy wires and mediastinal surgical clips are incidentally noted. Lung volumes are diminished. There is no pneumothorax or pleural effusion. There is no consolidation to suggest pneumonia. No acute right rib fractures are identified. Prominence of the card iac silhouette is accentuated on this exam. IMPRESSION: No pneumothorax. No acute right rib fractures. ACT 112: Negative or not required by law. Electronically signed by: Wilfredo Ruiz M.D. 09/23/2021 5:45 PM Code Status & VTE Plan Code Status Patient is a full code as per Dr. Vasquez's discussion with him. VTE Prophylaxis Plan VTE Prophylaxis will be ordered: Yes Supervising Physician Co-Signing Physician Notes Pt is a 76 y/o M with hx of CAD s/p CABG, DMII, Hypothyroidism, HLD, CVA, HTN, BPH, Depression, DDD, insomnia, Internal hemorrhoids admitted for GI bleed. Exam: NAD Lungs: CTA, no wheezing --- TTP of the L anterior chest wall Cardiac: Normal S1/S2, no murmur Abd: ND, normal BS, mild ttp of b/l lower abd MSK: TTP of the paravertebral muscle on the R lower back Psych: AAOx3, normal affect A/P: Melena + Bloody BM: 2/2 GI bleed + FOBT -hgb is similar to his baseline (13) -will trend CBC -Protonix drip -VSS -Xray of the ribs: neg -GI consulted: possible EGD tomorrow -Trop neg Agree with A/P by GIO Angela
[2021-09-23 19:45] LABS: Hematocrit (blood only) 37.1 % (42-52)
[2021-09-23] MEDS: METOPROLOL TARTRATE 50 MG TAB PO SCH (21:38)
[2021-09-23] MEDS: ENALAPRIL MALEATE 5 MG TAB PO SCH (21:38)
[2021-09-23] MEDS: INSULIN ASPART 100 UNITS/ML VIAL SC SCH (23:08)
[2021-09-24] MEDS: PANTOprazole 40 MG in DEXTROSE 5% 100 ML IV SCH ×3 (02:19→11:27)
[2021-09-24] MEDS ORDERED: LEVOTHYROXINE SODIUM 25 MCG TABLET PO SCH (06:30)
[2021-09-24] MEDS ORDERED: Nursing to Pharmacy Communication SCH ×2 (07:15→11:30)
[2021-09-24] MEDS: INSULIN ASPART 100 UNITS/ML VIAL SC SCH (07:21)
[2021-09-24 08:09] LABS: Hematocrit (blood only) 37.4 % (42-52); Hemoglobin 13.2 g/dL (14.0-18.0); Mean Corpuscular Hemoglobin 31.4 pg (25-34); Mean Corpuscular Hgb Conc 35.3 g/dL (32-36); Mean Corpuscular Volume 88.8 fL (80-100); Mean Platelet Volume 11.4 fL (7.4-10.4); Platelet Count 124 K/uL (130-400); RDW Coefficient of Variation 13.7 % (11.5-14.5); RDW Standard Deviation 44.3 fL (36.4-46.3); Red Blood Count 4.21 M/uL (4.7-6.1); White Blood Count 5.21 K/uL (4.8-10.8)
[2021-09-24 08:40] LABS: BUN Creatinine Ratio 13.1 (10-20); Calcium 8.7 mg/dl (8.5-10.1); Creatinine Clr Calc Pharmacy 69.2 ml/min; Est GFR (African American) 83.5 ml/min; Est GFR (Non-African American) 72.1 ml/min
--- NOTE | 2021-09-24 08:58 | Gastroenterology Progress Note ---
Date of Service September 24, 2021 Assessment & Plan (1) Rectal bleeding: (2) Abdominal pain: (3) Nausea & vomiting: Plan: Pt is a 76 yo male w symptoms of n/v, abd pain, bloating, black stools yesterday (likely related to Peptobismol use) and rectal bleeding today. + mild anemia but normal BUN. CT w/o acute findings. Hx of hiatal hernia, gastritis, int hemorrhoids, L sided diverticuli DDx: PUD, gastroenteritis, diverticular and hemorrhoidal bleeding Blood ct stable, no more BMs or rectal bleeding overnight. Still c/o burning upper abd pain - Monitor blood ct and transfuse prn - PPI BID - NPO for EGD today - Stool cx and Cdiff checks - Dicyclomine 10mg TID prn abd cramping - Symptomatic management otherwise Admission and Anticipated Discharge Date Admission Date: September 23, 2021 Subjective Pt reports still having upper abd burning type pain, worried about possible ulcer. No n/v, didn't pass any more BMs overnight Review of Systems Review of Systems: All systems reviewed & are unremarkable except as noted in HPI & below Physical Exam Constitutional: WD/WN, vitals as above well groomed, cooperative and comfortable Eyes: PERRL, conjunctivae normal, anicteric sclerae ENMT: external ear and nose normal, oropharynx normal Respiratory: normal respiratory effort, lungs clear to auscultation Cardiovascular: RRR, no murmur, no edema Gastrointestinal (Abdomen): Soft, non tender, BS present Skin: no rashes, warm and dry no jaundice Psychiatric: A+Ox3, euthymic affect Lymphatic: no lymphedema Results & Data ([facility]) Vital Signs (Past 12 Hours) Vital Signs Temp Pulse Resp BP Pulse Ox 09/24/21 07:57 36.5 C 67 16 115/80 96 09/23/21 22:38 36.6 C 62 16 114/77 93
[2021-09-24] MEDS ORDERED: ATORVASTATIN 40 MG TAB PO SCH (09:00)
[2021-09-24] MEDS ORDERED: CITALOPRAM 40 MG TAB PO SCH (09:00)
[2021-09-24 09:43] VITALS: TEMP 97.5
--- NOTE | 2021-09-24 09:50 | Anesthesiology Consultation ---
Date of Service September 24, 2021 Assessment & Plan ASA ASA3 Proposed Anesthesia Anesthesia Type: MAC Risk / Benefits Reviewed With: PT / POA / Parent / Guardian, Accepts Plan and Informed Consent Obtained History Surgery Operation Date: 09/24/21 16:15 Proposed Procedures p Esophagogastroduodenoscopy Dr. Rakesh Cameron MD Height/Weight Height: 5 ft 7 in Weight: 93.4 kg Allergies Allergy/AdvReac Type Severity Reaction Status Date / Time niacin Allergy Unknown ITCHY Verified 09/24/21 09:39 SPLOTCHY Medications Home Medications Medication Instructions Recorded Confirmed Last Taken aspirin 81 mg tablet,delayed 81 mg PO DAILY 12/18/20 09/23/21 Unknown release (Aspirin Low Dose) atorvastatin 40 mg tablet (Lipitor) 40 mg PO DAILY 12/18/20 09/23/21 Unknown citalopram 40 mg tablet (Celexa) 40 mg PO DAILY 12/18/20 09/23/21 09/23/21 enalapril maleate 2.5 mg tablet 2.5 mg PO BID 12/18/20 09/23/21 09/23/21 (Vasotec) levothyroxine 25 mcg capsule 25 mcg PO DAILY 12/18/20 09/23/21 09/23/21 metformin 500 mg tablet 500 mg PO BID 08/12/21 09/23/21 09/23/21 cyanocobalamin (vitamin B-12) 1,000 mcg PO DAILY 09/23/21 09/23/21 09/23/21 1,000 mcg tablet fenofibrate micronized 134 mg 134 mg PO DAILY 09/23/21 09/23/21 Unknown capsule metoprolol tartrate 50 mg tablet 50 mg PO BID 09/23/21 09/23/21 09/23/21 omeprazole 20 mg tablet,delayed 20 mg PO DAILY 09/23/21 09/23/21 Unknown release psyllium husk 0.4 gram capsule 0.4 g PO DAILY 09/23/21 09/23/21 Unknown (Fiber (psyllium husk)) semaglutide (Ozempic) 0.25 mg SUBCUT WK 09/23/21 09/23/21 Unknown sildenafil 100 mg tablet (Viagra) 100 mg PO UD 09/23/21 09/23/21 Unknown Active Medications Generic Name Dose Route Start Last Admin Trade Name Freq PRN Reason Stop Dose Admin Acetaminophen 650 mg 09/23/21 18:25 09/23/21 19:28 Acetaminophen 325 Mg Tab PO 10/23/21 18:24 650 mg Q4H PRN Administration pain/fever Cyclobenzaprine HCl 10 mg 09/23/21 18:58 09/23/21 21:36 Cyclobenzaprine Hcl 10 Mg Tab PO 10/23/21 20:59 10 mg BID PRN Administration back pain Dicyclomine HCl 10 mg 09/23/21 15:45 09/24/21 09:00 Dicyclomine Hcl 10 Mg Cap PO 10/23/21 20:59 10 mg TID PRN Administration cramping Enalapril Maleate 2.5 mg 09/23/21 21:00 09/23/21 21:38 Enalapril Maleate 5 Mg Tab PO 10/23/21 20:59 2.5 mg BID SAIRA Administration Pantoprazole Sodium 40 mg/ 100 mls @ 20 mls/hr 09/23/21 14:45 09/24/21 06:11 Dextrose IV 10/23/21 14:44 8 mg/hr Q5H SAIRA 20 mls/hr Administration 8 MG/HR Levothyroxine Sodium 25 mcg 09/24/21 06:30 09/24/21 06:09 Levothyroxine Sodium 25 Mcg Tablet PO 10/24/21 06:29 25 mcg DAILYBB SAIRA Administration Metoprolol Tartrate 50 mg 09/23/21 21:00 09/23/21 21:38 Metoprolol Tartrate 50 Mg Tab PO 10/23/21 20:59 50 mg BID SAIRA Administration Miscellaneous 1 ea 09/24/21 00:00 09/24/21 08:28 Order Awaiting Action [Fenofibrate Micronized 134 Mg Capsule] N/A 10/24/21 00:00 Not Given QS SAIRA NPO Date Last Intake of Fluids: 09/23/21 Time Last Intake of Fluids: 08:00 Date Last Intake of Solids: 09/22/21 Time Last Intake of Solids: 11:30 Past Medical History Medical History CAD (coronary artery disease) 1994-CABG x2 2005-MAYLIN to circumflex Cervical disc disorder at C5-C6 level with radiculopathy Chronic SI joint pain DDD (degenerative disc disease), lumbar Diabetes Foraminal stenosis of lumbar region L5-S1 Heart disease High blood pressure High cholesterol Lumbar back pain with radiculopathy affecting left lower extremity Rupture of hip abductor tendon Trochanteric bursitis of both hips Exercise / Class Metabolic Activity II 4-5 Yardwork/Stairs/Walk up hill Past Family History Family History Other Diabetes Heart disease Past Surgical History Surgical History H/O heart artery stent H/O heart bypass surgery H/O laminectomy H/O shoulder replacement S/P hernia surgery Past Anesthesia History No Hx of Anesthesia Complications and No Family Hx of Anesthesia Complications History of PONV No Hx of PONV and No Hx of Motion Sickness Social History Smoking Status: Former smoker Hx Alcohol Use: No Hx Substance Use: No Review of Systems denies fever/cough/ colds/ chest pain/ SOB/ CYNTHIA denies CYNTHIA Physical Exam Vital Signs Last Vital Signs Temp 36.4 C L 09/24/21 09:40 Pulse 56 L 09/24/21 09:40 Resp 18 09/24/21 09:40 BP 123/73 09/24/21 09:40 Pulse Ox 94 09/24/21 09:40 ENMT Mouth: no TMJ abnormality and no dentition abnormality Thyromental Distance: > or= 3.5 Finger Breadths Mallampati Class: II Neck neck extension not limited Respiratory normal respiratory effort; no respiratory distress Auscultation: lungs clear to auscultation bilaterally Cardiovascular Rate/Rhythm: regular rate and regular rhythm Neurologic moves all extremities Psychiatric Orientation: alert and oriented x 3 Testing Laboratory Results 09/24/21 07:45 09/24/21 07:45 PT 11.3 Seconds (9.0-12.0) 09/23/21 12:42 INR 1.1 (0.9-1.1) 09/23/21 12:42 APTT 27.3 Seconds (21.0-31.0) 09/23/21 12:42 Blood Type O Positive 09/23/21 12:42 Antibody Screen NEGATIVE 09/23/21 12:42
--- NOTE | 2021-09-24 10:18 | History & Physical Bridge Note ---
Date of Service September 24, 2021 History & Physical Bridge Note I have examined the patient, reviewed the History & Physical and today's consult note and in the interval since the performance of the History & Physical I have noted the following changes of clinical significance: no changes noted Supervising Physician Co-Signing Physician Notes EGD for abdominal pain
[2021-09-24] MEDS ORDERED: PROPOFOL IV EMULSION 10 MG/ML 20 ML VIAL IV ONE (10:36)
[2021-09-24] MEDS ORDERED: LIDOCAINE 2% 2 ML VIAL/AMP(20MG/ML) INFIL ONE (10:36)
--- NOTE | 2021-09-24 10:49 | Communication Note ---
Date of Service: September 24, 2021 EGD completed with findings of mild gastritis. Biopsies obtained for h pylori. Recommend carafate 1 gram qid for 28 days, ppi 20 mg oral once daily ensuring it is 30-45 minutes prior to a meal. He can have liquids and advance diet from there. ok to mi home from a gi perspective.
[2021-09-24 11:00] VITALS: O2SAT 96
--- NOTE | 2021-09-24 11:02 | GI REPORT ---
Patient Name: Juanito Yoon Procedure Date: 09/24/2021 10:55 AM Date of : 1945 Admit Type: Inpatient Age: 76 Gender: Male Attending MD: Mily Cameron M.d. Procedure: Upper GI endoscopy Providers: Mily Cameron M.d. Referring MD: Jesse Silver Md Indications: Epigastric abdominal pain Medicines: See anesthesia record Complications: No immediate complications. Estimated Blood Loss: Estimated blood loss: none. Procedure: Pre-Anesthesia Assessment: - Patient identification and proposed procedure were verified prior to the procedure by the physician, the nurse and the anesthesiologist. The procedure was verified in the pre-procedure area. - Prior to the procedure, a History and Physical was performed, and patient medications, allergies and sensitivities were reviewed. The patient's tolerance of previous anesthesia was reviewed. - The risks and benefits of the procedure and the sedation options and risks were discussed with the patient. All questions were answered and informed consent was obtained. - ASA Grade Assessment: III - A patient with severe systemic disease. After obtaining informed consent, the endoscope was passed under direct vision. Throughout the procedure, the patient's blood pressure, pulse, and oxygen saturations were monitored continuously. The Endoscope was introduced through the mouth, and advanced to the second part of duodenum. The upper GI endoscopy was accomplished without difficulty. The patient tolerated the procedure well. Findings: The examined esophagus appeared normal. The Z-line appeared variable but the variability was less than 1 cm. Diffuse moderately erythematous mucosa without bleeding was found in the stomach. Biopsies were taken with a cold forceps for Helicobacter pylori testing. The pathology specimen was placed into Bottle A. Verification of patient identification for the specimen was done by the physician and nurse using the patient's name and medical record number. The duodenal bulb and second portion of the duodenum appeared normal. Impression: - Normal esophagus. - Z-line variable. - Erythematous mucosa in the stomach. Biopsied. - Normal duodenal bulb and second portion of the duodenum. Recommendation: - Await pathology results. Rustam Adams M.d. 09/24/2021 11:02:00 AM This report has been signed electronically. Note Initiated On: 09/24/2021 10:55 AM Number of Addenda: 0 I attest to the content of the Intraoperative Record and orders documented therein, exceptions below {[id number]}
--- NOTE | 2021-09-24 11:10 | Anesthesiology Progress Note ---
Date of Service September 24, 2021 Anesthesia Post Procedure Vital Signs Vital Signs: Temp Pulse Pulse Pulse Resp BP BP 09/24/21 10:55 54 L 16 127/77 09/24/21 10:40 61 18 119/77 09/24/21 09:40 36.4 C L 56 L 18 123/73 09/24/21 07:57 36.5 C 67 16 115/80 09/23/21 22:38 36.6 C 62 16 114/77 09/23/21 18:10 36.8 C 71 18 132/79 09/23/21 17:46 67 18 131/79 09/23/21 16:00 61 15 122/81 09/23/21 14:32 09/23/21 14:15 61 19 130/99 09/23/21 12:30 129/75 09/23/21 12:26 36.6 C 64 18 Pulse Ox 09/24/21 10:55 96 09/24/21 10:40 95 09/24/21 09:40 94 09/24/21 07:57 96 09/23/21 22:38 93 09/23/21 18:10 98 09/23/21 17:46 99 09/23/21 16:00 97 09/23/21 14:32 96 09/23/21 14:15 96 09/23/21 12:30 09/23/21 12:26 96 Pain Intensity Lower Abdomen: Pain Intensity: 6 Transfer of Care Handoff Completed per policy Notes Mental Status: alert / awake / arousable and participated in evaluation Patient Amnestic to Procedure: Yes Nausea / Vomiting: adequately controlled Pain: adequately controlled Airway Patency, RR, SpO2: stable & adequate BP & HR: stable & adequate Hydration State: stable & adequate Anesthetic Complications: no major complications apparent and Pt Satisfied with anesthetic care
[2021-09-24 11:11] VITALS: BP 128/78; PULSE 58
[2021-09-24] MEDS ORDERED: PANTOprazole 40 MG TAB PO SCH (11:15)
[2021-09-24] MEDS ORDERED: INSULIN ASPART 100 UNITS/ML VIAL SC SCH ×2 (11:30→12:00)
--- NOTE | 2021-09-24 11:57 | Hospitalist Progress Note ---
Date of Service September 24, 2021 Assessment & Plan (1) Acute GI bleeding: Plan: Prior EGD/Colonoscopy reviewed done recently in 2019 - gastritis, hiatal hernia, diverticulosis and int hemorrhoids. Patient presenting from home with reports of intractable nausea, black stools which transitioned to bright red bleeding per rectum on day of admission No further BM since admission He received IV famotidine and PPI bolus/gtt in ED GI on board - appreciate their recs EGD performed today Recommend carafate 1 gram qid for 28 days, ppi 20 mg oral once daily ensuring it is 30-45 minutes prior to a meal If pt tolerates liquids and advanced diet can d/c later today Hgb stable at 13.2 stool studies/cdiff not obtained due to no stool to collect - ok to d/c these (2) CAD (coronary artery disease): Plan: hx of CAD, reported CP in ED resolved and reproducible Continue metoprolol, aspirin, atorvastatin, enalapril (3) HTN (hypertension): Plan: BP controlled, continue enalapril and metoprolol (4) Diabetes: Plan: Hgb A1c 7.3 09/08 Hold home Metformin and Ozempic and utilize NovoLog per protocol while hospitalized (5) Chronic back pain: Plan: Has right low back paraspinal tenderness on exam Follows with orthopedics and pain clinic will trial as needed Flexeril (6) DVT prophylaxis: Plan: SCDs due to GI bleeding Dispo: possible d/c later today if tolerates lunch PCP: Guille FULL CODE Pt was seen and examined in collaboration with Dr. Silver, please see addendum The chart was completed utilizing [employer] Speech voice recognition software. Grammatical errors, random word insertions, pronoun errors, and incomplete sentences are an occasional consequence of this system due to software limitations, ambient noise, and hardware issues. Any formal questions or concerns about the content, text, or information contained within the body of this dictation should be directly addressed to the provider for clarification.. Admission and Anticipated Discharge Date Admission Date: September 23, 2021 Supervising Physician Co-Signing Physician Notes Patient seen and examined by me, care coordinated with Olivia Pagan PA-C, please refer to her note above for further detail. Patient presented yesterday with abdominal pain, and dark stools, followed by bright red blood per rectum. He was seen by GI, underwent EGD earlier today. Currently he is feeling quite well, tolerating diet. EGD showed gastritis, and patient was started on PPI and Carafate. Currently patient is lying in bed in no acute distress. He is alert oriented and answering questions appropriately. He did not have any more bowel movement since admission. Denies feeling dizzy or lightheaded. Heart sounds regular. Lung sounds clear to auscultation bilaterally without any rhonchi, wheezing or crackles. Abdomen is soft nontender nondistended, with positive bowel sounds. Skin is warm dry well-perfused. Patient is moving extremities. I had a long discussion about discharge recommendations and appropriate follow- up, and diet. Patient is eager to be discharged, understands to take his medications, and recommended diet for the next couple of days. Lindsay Silver MD Subjective Patient was seen and examined in 381-1. Follow-up abdominal pain status post EGD. This morning prior to procedure he did have generalized abdominal discomfort. This worsens with food. Post egd is he doing well and is requesting diet. He has not had a BM since admission. [employer] PHYSIOTHER[employer]IST he had black BMs and episode of BRBPR. He denies f/c/s, chest pain, sob, n/v/d. He is hoping to be discharged later today. Review of Systems Review of Systems: All systems reviewed & are unremarkable except as noted in HPI & below Physical Exam Physical Exam: Gen: WD/WN, M, lying in bed, NAD, A&O x3 HEENT: Normocephalic, atraumatic, conjunctivae moist, sclerae anicteric, mucous membranes moist. Lung: Clear to Auscultation bilaterally, no wheezes/rales/rhonchi Heart: Regular rate, regular rhythm, no murmurs, rubs, or gallops Abdomen: Soft, NT, ND +BS x 4 Extremities: No edema Skin: Warm, no rash, negative turgor. Results & Data Results & Data ([facility]) Vital Signs (Past 12 Hours) Vital Signs Temp Pulse Resp BP Pulse Ox 09/24/21 11:10 58 L 16 128/78 96 09/24/21 10:55 54 L 16 127/77 96 09/24/21 10:40 61 18 119/77 95 09/24/21 09:40 36.4 C L 56 L 18 123/73 94 09/24/21 07:57 36.5 C 67 16 115/80 96 Laboratory Results Short CBC 09/23/21 09/23/21 09/24/21 Range/Units 12:42 19:30 07:45 WBC 6.90 5.21 (4.8-10.8) K/uL Hgb 13.8 L 13.0 L 13.2 L (14.0-18.0) g/dL Hct 39.7 L 37.1 L 37.4 L (42-52) % Plt Count 159 124 L (130-400) K/uL BMP 09/23/21 09/24/21 12:42 07:45 Sodium 136 138 Potassium 4.1 4.0 Chloride 106 107 Carbon Dioxide 23 24 BUN 17 13 Creatinine 1.08 1.02 Glucose 130 H 164 H Calcium 9.5 8.7 Cardiac Enzymes 09/23/21 Range/Units 16:58 Troponin I < 0.015 (0-0.045) ng/ml Liver Function 09/23/21 Range/Units 12:42 Total Bilirubin 0.9 (0.2-1) mg/dl AST 32 (15-37) U/L ALT 40 (12-78) Alkaline Phosphatase 47 (45-117) U/L Albumin 3.9 (3.4-5.0) gm/dl Diagnostic Findings EGD:mild gastritis, biopsies taken Medications Administered Current Inpatient Medications Acetaminophen (Acetaminophen 325 Mg Tab) 650 mg PO Q4H PRN PRN Reason: pain/fever Stop: 10/23/21 18:24 Last Admin: 09/23/21 19:28 Dose: 650 mg Documented by: Atorvastatin Calcium (Atorvastatin 40 Mg Tab) 40 mg PO DAILY [facility]IRA Stop: 10/24/21 08:59 Last Admin: 09/24/21 12:39 Dose: 40 mg Documented by: Citalopram Hydrobromide (Citalopram 40 Mg Tab) 40 mg PO DAILY SAIRA Stop: 10/24/21 08:59 Last Admin: 09/24/21 12:39 Dose: 40 mg Documented by: Cyclobenzaprine HCl (Cyclobenzaprine Hcl 10 Mg Tab) 10 mg PO BID PRN PRN Reason: back pain Stop: 10/23/21 20:59 Last Admin: 09/23/21 21:36 Dose: 10 mg Documented by: Dextrose (Dextrose 50% 50 Ml Syringe) 25 - 50 ml IV UD PRN; Protocol PRN Reason: Hypoglycemia Protocol Stop: 10/23/21 18:24 Dicyclomine HCl (Dicyclomine Hcl 10 Mg Cap) 10 mg PO TID PRN PRN Reason: cramping Stop: 10/23/21 20:59 Last Admin: 09/24/21 09:00 Dose: 10 mg Documented by: Enalapril Maleate (Enalapril Maleate 5 Mg Tab) 2.5 mg PO BID SAIRA Stop: 10/23/21 20:59 Last Admin: 09/24/21 12:39 Dose: 2.5 mg Documented by: Glucagon (Glucagon For Inj 1 Mg Vial) 1 mg SQ UD PRN; Protocol PRN Reason: Hypoglycemia Protocol Stop: 10/23/21 18:24 Glucose (Glucose 10 Tabs/Tube) 4 - 8 tabs PO UD PRN; Protocol PRN Reason: Hypoglycemia Protocol Stop: 10/23/21 18:24 Glucose (Glucose 40% Gel 15 Gm Tube) 15 - 30 gm PO UD PRN; Protocol PRN Reason: Hypoglycemia Protocol Stop: 10/23/21 18:24 Insulin Aspart (Insulin Aspart 100 Units/Ml Vial) 0 units SC ACHS [facility] Stop: 10/24/21 11:29 Levothyroxine Sodium (Levothyroxine Sodium 25 Mcg Tablet) 25 mcg PO DAILYBB [facility] Stop: 10/24/21 06:29 Last Admin: 09/24/21 06:09 Dose: 25 mcg Documented by: Metoprolol Tartrate (Metoprolol Tartrate 50 Mg Tab) 50 mg PO BID [facility] Stop: 10/23/21 20:59 Last Admin: 09/24/21 12:40 Dose: 50 mg Documented by: Miscellaneous (Order Awaiting Action [Fenofibrate Micronized 134 Mg Capsule]) 1 ea N/A QS [facility] Stop: 10/24/21 00:00 Last Admin: 09/24/21 08:28 Dose: Not Given Documented by: Miscellaneous (Carbohydrates For Hypoglycemia ) 15 - 30 gm PO UD PRN PRN Reason: Hypoglycemia Protocol Stop: 10/23/21 18:24 Ondansetron HCl (Ondansetron Inj 2 Mg/Ml 2 Ml Vial) 4 mg IV Q6H PRN PRN Reason: Nausea Stop: 10/23/21 18:24 Pantoprazole Sodium (Pantoprazole 40 Mg Tab) 40 mg PO QAM [facility] Stop: 10/24/21 11:14 Last Admin: 09/24/21 12:40 Dose: 40 mg Documented by: Sucralfate (Sucralfate 1 Gm/10 Ml Udc) 1 gm PO QID [facility] Stop: 10/24/21 12:59 Last Admin: 09/24/21 12:40 Dose: 1 gm Documented by:
[2021-09-24] MEDS: ENALAPRIL MALEATE 5 MG TAB PO SCH (12:39)
[2021-09-24] MEDS: METOPROLOL TARTRATE 50 MG TAB PO SCH (12:40)
[2021-09-24] MEDS ORDERED: SUCRALFATE 1 GM/10 ML UDC PO SCH (13:00)
--- NOTE | 2021-09-24 13:43 | Discharge Summary ---
Date of Service September 24, 2021 Admission HPI Per Admitting Provider 76-year-old male with PMH DM type II, hypothyroidism, history of CVA, HTN, CAD s/p CABG and stenting, and other problems to below who presents the ED for evaluation of persistent nausea and bright red bleeding per rectum. Past few days, he has had intractable nausea. He denies vomiting. He reports increased abdominal cramping and gas. Noted that stools were loose and black and this morning, he noted some bright red bleeding per rectum. He has been lightheaded and dizzy however denies any syncopal event. No chest pain. Struggles with chronic back pain and left shoulder pain. Follows with orthopedics in the pain clinic. No fevers or chills. Denies urinary symptoms. In the ED, patient is hemodynamically stable. Hgb 13.8. Stool is heme positive. Patient was given IV ceftriaxone, Protonix bolus and drip, IV famotidine, IV Zofran. Admission Exam Per Admitting Provider Exam: NAD Lungs: CTA, no wheezing --- TTP of the L anterior chest wall Cardiac: Normal S1/S2, no murmur Abd: ND, normal BS, mild ttp of b/l lower abd MSK: TTP of the paravertebral muscle on the R lower back Psych: AAOx3, normal affect Principal Diagnosis Abdominal Pain Rectal Bleeding Gastritis Discharge Exam Gen: WD/WN, M, lying in bed, NAD, A&O x3 HEENT: Normocephalic, atraumatic, conjunctivae moist, sclerae anicteric, mucous membranes moist. Lung: Clear to Auscultation bilaterally, no wheezes/rales/rhonchi Heart: Regular rate, regular rhythm, no murmurs, rubs, or gallops Abdomen: Soft, NT, ND +BS x 4 Extremities: No edema Skin: Warm, no rash, negative turgor. Discharge Data Allergies Allergy/AdvReac Type Severity Reaction Status Date / Time niacin Allergy Unknown ITCHY Verified 09/24/21 09:39 SPLOTCHY Consultations 09/23/21 15:09 ED Decision to Admit Stat 09/23/21 15:36 Consult Gastroenterology Routine Procedures Performed Operation Date: 09/24/21 16:15 Actual Procedures p EGD Biopsy Cytology - Mily Cameron MD Ordered Studies Abdomen/Pelvis CT 09/23/21 14:22 CT abd pelvis wo con CLINICAL HISTORY: Bilateral flank pain. Bloody stool. Nausea. COMPARISON STUDY: No previous studies for comparison. CT DOSE: 985.36 mGy.cm TECHNIQUE: Standard CT of the Abdomen and Pelvis was performed without IV contrast. The patient did not receive oral contrast. A dose lowering technique was utilized adhering to the principles of ALARA. FINDINGS: Lung base: The lung bases are clear. There is mild coronary artery calcification. Abdominal cavity: There is no evidence for abdominal mass, adenopathy or ascites. There is a small left inguinal hernia containing peritoneal fat. Liver: The liver is homogeneous in attenuation on these limited noncontrast images.. Spleen: The spleen is homogeneous in attenuation on these limited noncontrast images. Pancreas: The pancreas is homogeneous in attenuation on these limited noncontrast images. Gall Bladder: The gallbladder is well distended with no evidence for cholelithiasis, wall thickening or pericholecystic edema.. Adrenal glands: The adrenal glands are normal in size and attenuation on these limited noncontrast images. Kidneys: The kidneys are homogeneous in attenuation on these limited noncontrast images. There is no evidence for gross renal mass, calculus or hydronephrosis bilaterally. Bowel: The bowel loops are normally placed within the abdomen and pelvis without evidence for dilatation or obstruction. There is diverticulosis of the descending and sigmoid colon without evidence for diverticulitis. However, there is diffuse mucosal thickening which cannot be fully evaluated due to lack of distention with oral contrast. There are no inflammatory changes present. There is no evidence for free air. There is no evidence for an inflamed appendix. Bladder: There is distention of the urinary bladder with no evidence for focal bladder wall thickening, calculus or diverticulum. : There is no evidence for pelvic mass or adenopathy. The prostate is mildly enlarged. Vasculature: There is no evidence for focal aneurysmal dilatation of the abdominal aorta. Atherosclerotic calcification is present. Osseous structures: There is no acute osseous pathology. Degenerative changes are seen throughout the lumbar spine. IMPRESSION: 1. Diverticulosis without evidence for diverticulitis. However, there is prominent mucosal thickening of the sigmoid colon which cannot be fully evaluated due to lack of distention with oral contrast. 2. Otherwise, no acute intra-abdominal or pelvic abnormality on these limited noncontrast images. 3. Negative kidneys. 4. Distention of the bladder. 5. Additional nonacute findings are delineated above. ACT 112: Negative or not required by law. Electronically signed by: Lefty Carcamo M.D. 09/23/2021 2:53 PM Ribs w/Chest X-Ray 09/23/21 16:08 XR ribs RT min 2V w [id number] CLINICAL HISTORY: Right rib pain. Evaluate for fracture. COMPARISON: Chest radiograph May 11, 2018. FINDINGS: Left shoulder arthroplasty, median sternotomy wires and mediastinal surgical clips are incidentally noted. Lung volumes are diminished. There is no pneumothorax or pleural effusion. There is no consolidation to suggest pneumonia. No acute right rib fractures are identified. Prominence of the cardiac silhouette is accentuated on this exam. IMPRESSION: No pneumothorax. No acute right rib fractures. ACT 112: Negative or not required by law. Electronically signed by: Wilfredo Ruiz M.D. 09/23/2021 5:45 PM Diabetes Follow up A1C 7.3 09/08/21 Hospital Course (1) Acute GI bleeding: This is a 76-year-old male who has significant past medical history of CAD s/p CABG and stenting HTN, T2DM, history of CVA, chronic back pain, hypothyroidism, history of gastritis who presented to ED on 09/23/21 secondary to nausea, abdominal pain and bright red bleeding per rectum. Hemoglobin was stable at 13.8. CT abdomen pelvis was negative for acute pathology. He was started on IV Protonix bolus drip, IV famotidine and Zofran IV ceftriaxone. He was seen and evaluated by GI service who recommended oral Protonix.He underwent EGD which revealed gastritis and biopsies were obtained. He was recommended to start PPI once daily and Carafate 1 g 4 times daily for 28 days. It was felt this was the etiology of his abdominal pain and BRBPR may be 2/2 to hemorrhoidal bleeding or diverticular bleeding. He will need to follow-up with PCP regarding biopsy results on EGD. At time of discharge patient symptoms have resolved and he was tolerating regular diet. Vital signs are stable hemoglobin remained stable at 13.2. The chart was completed utilizing Personal voice recognition software. Grammatical errors, random word insertions, pronoun errors, and incomplete sentences are an occasional consequence of this system due to software limitations, ambient noise, and hardware issues. Any formal questions or concerns about the content, text, or information contained within the body of this dictation should be directly addressed to the provider for clarification. (2) CAD (coronary artery disease): (3) HTN (hypertension): (4) Diabetes: (5) Chronic back pain: (6) DVT prophylaxis: Total Time Total Time Spent Total Time Spent (In Minutes): 45 minutes Total Time Includes: Examination of the Patient, Discharge Planning, Medication Reconciliation, Communication With Other Providers and Other Discharge Plan Discharge Items Patient Disposition: Home - Self-Care Reason For Visit: BLOODY STOOLS/NAUSEA/HEADACHE/EXTREME PAIN Discharge Diagnosis: Abdominal Pain Rectal Bleeding Gastritis Activity: Resume your previous activity Driving/Machine Use: Resume 1 day after discharge Weightbearing: Full weightbearing Non-emergency contact: Primary Care Provider and Special Ed Assistant Call non-emergency contact if: you have any medication questions, your symptoms worsen, your pain is not controlled, your pain is worsening, your pain is unusual for you, your pain is concerning for you, you have a fever and your temperature is above 101.5 Follow-up/Referrals: Neo Han MD [Primary Care Provider] - 09/29/21 1:00 pm (Date & Time 09/29/2021 1:00 PM Provider Makenna Vasquez MD Department Family Medicine [facility] ) Diet: Carb Consistent or DM2, Heart Healthy and Low Fat Addtl Attending Provider Instructions: MEDICATION CHANGES: NEW MEDICATIONS *Pantoprazole 40mg once daily *Carafate 1g (10ml) four times daily x 28 days SUMMARY OF TEST RESULTS: You were admitted to hospital due to concern for Gastrointestinal bleeding. Your hemoglobin (blood counts) remained stable. You underwent an EGD which revealed inflammation of the lining of your stomach called Gastritis and biopsies were taken. This is likely the source of your abdominal pain. It is felt that the bleeding from your rectum may have been due to internal hemorrhoids or a diverticular bleed. These results are pending and you will need to follow up re sults with your Primary Care Physician. The Gastrointestinal Provider recommends taking the above medications. PENDING TEST RESULTS: Biopsy taken during EGD RECOMMENDATIONS FOR FOLLOW-UP: Please follow up with your PCP as scheduled. Follow up with PCP regarding results of EGD biopsy Please take new medications Pantoprazole and Carafate as prescribed. Recommend a bland diet until your stomach ache resolve and gradually increase your diet as tolerated. Please avoid anti inflammatory medications including ibuprofen, aleve, advil, motrin, naprosyn, naproxen and excedrin. If your symptoms return, become worse, or you notice further bleeding from rectum please contact PCP or return to ED immediately. OTHER INSTRUCTIONS: Seek medical attention if you have: * temperature above 101 * chest pain or trouble breathing * abdominal pain, nausea, vomiting * diarrhea, dark stools or bloody stools * any unanswered questions or concerns Call 911 if symptoms are severe. Please take good care of yourself. It has been a pleasure taking care of you. Please take care of yourself. If you have any questions regarding your recent hospitalization please contact [facility] and request [employer] Cathleenist @ [phone]. Pending Studies at Discharge: Yes Studies:: Stomach biopsy pathology results pending Stand-Alone Forms: My [facility], Smoking Cessation Medications and DC Order Prescriptions: New sucralfate 100 mg/mL Suspension 1 g PO QID 28 Days Qty: 1120 RF: 0 pantoprazole 40 mg Tablet,Delayed Release (Dr/Ec) 40 mg PO QAM Qty: 30 RF: 0 Continued aspirin [Aspirin Low Dose] 81 mg tablet,delayed release (DR/EC) 81 mg PO DAILY RF: 0 atorvastatin [Lipitor] 40 mg tablet 40 mg PO DAILY RF: 0 citalopram [Celexa] 40 mg tablet 40 mg PO DAILY RF: 0 enalapril maleate [Vasotec] 2.5 mg tablet 2.5 mg PO BID RF: 0 levothyroxine 25 mcg capsule 25 mcg PO DAILY RF: 0 metformin 500 mg tablet 500 mg PO BID RF: 0 cyanocobalamin (vitamin B-12) 1,000 mcg Tablet 1,000 mcg PO DAILY RF: 0 sildenafil [Viagra] 100 mg Tablet 100 mg PO UD RF: 0 fenofibrate micronized 134 mg capsule 134 mg PO DAILY RF: 0 metoprolol tartrate 50 mg tablet 50 mg PO BID RF: 0 psyllium husk [Fiber (psyllium husk)] 0.4 gram Capsule 0.4 g PO DAILY RF: 0 Ozempic 0.25 mg or 0.5 mg(2 mg/1.5 mL) pen injector 0.25 mg SUBCUT WK RF: 0 Discontinued omeprazole 20 mg Tablet,Delayed Release (Dr/Ec) 20 mg PO DAILY RF: 0 Discharge Orders: Discharge Order (Routine); Ordered 09/24/21 Ordered By: Fannie Jaramillo/Other Patient Handouts: Understanding Gastritis Admission Data Admit Date/Time: 09/23/21 15:36 Attending Provider: Jesse Silver Admit Provider: Makenna Vasquez Primary Care Provider: Neo Han Other Providers: Mily Cameron ; Makenna Vasquez ; Fannie Pagan Other Interventions: Discharge Summary Assessment (RN) Last Done: 09/24/21 14:43 Supervising Physician Co-Signing Physician Notes Patient seen and examined by me, care coordinated with Olivia Pagan PA-C, please refer to her note above for further detail. Patient presented yesterday with abdominal pain, and dark stools, followed by bright red blood per rectum. He was seen by GI, underwent EGD earlier today. Currently he is feeling quite well, tolerating diet. EGD showed gastritis, and patient was started on PPI and Carafate. Currently patient is lying in bed in no acute distress. He is alert oriented and answering questions appropriately. He did not have any more bowel movement since admission. Denies feeling dizzy or lightheaded. Heart so unds regular. Lung sounds clear to auscultation bilaterally without any rhonchi, wheezing or crackles. Abdomen is soft nontender nondistended, with positive bowel sounds. Skin is warm dry well-perfused. Patient is moving extremities. I had a long discussion about discharge recommendations and appropriate follow- up, and diet. Patient is eager to be discharged, understands to take his medications, and recommended diet for the next couple of days. Lindsay Silver MD
== END 2021-09-24 16:17 | disposition home or self-care (01) ==
LOC: ED 12:14 → EDINP 12:14 → SUATTDRO 15:36 → 3N 17:46

== ENCOUNTER 2022-01-07 00:05 | Inpatient (IN) ==
[2022-01-07] MEDS ORDERED: ONDANSETRON INJ 2 MG/ML 2 ML VIAL IV STA (00:23)
[2022-01-07] MEDS ORDERED: SODIUM CHLORIDE 0.9% 500 ML IV STA (00:23)
[2022-01-07] MEDS ORDERED: MoRPHine SULFATE 4 MG/ML 1 ML CARP\\VIAL IV STA ×2 (00:38→03:17)
[2022-01-07 01:03] LABS: Basophils # (auto) 0.03 K/uL (0-0.2); Basophils % (auto) 0.3 %; Eosinophils # (auto) 0.17 K/uL (0-0.5); Eosinophils % (auto) 1.7 %; Hematocrit (blood only) 37.9 % (42-52); Hemoglobin 13.4 g/dL (14.0-18.0); Immature Granulocytes # (auto) 0.04 K/uL (0.00-0.02); Immature Granulocytes % (auto) 0.4 %; Lymphocytes % (auto) 12.8 %; Mean Corpuscular Hgb Conc 35.4 g/dL (32-36); Mean Corpuscular Volume 87.7 fL (80-100); Monocytes # (auto) 0.56 K/uL (0.11-0.59); Monocytes % (auto) 5.5 %; Neutrophils # (auto) 8.02 K/uL (1.4-6.5); Neutrophils % (auto) 79.3 %; Platelet Count 191 K/uL (130-400); RDW Coefficient of Variation 13.3 % (11.5-14.5); Red Blood Count 4.32 M/uL (4.7-6.1); White Blood Count 10.12 K/uL (4.8-10.8)
[2022-01-07 01:08] LABS: iSTAT Hemoglobin 12.9 g/dl (14.0-18.0); iSTAT Ionized Calcium 1.16 mmol/l (1.12-1.32); iSTAT Potassium 3.9 mmol/L (3.3-5.0)
[2022-01-07 01:27] LABS: Troponin I < 0.03 ng/ml (0-0.04)
[2022-01-07 01:34] LABS: Appearance Urine Clear (Clear); Bilirubin Urine Negative (Negative); Blood Urine Negative (Negative); Color Urine Yellow; Glucose Urine UA Negative (Negative); Ketones Urine Trace (Negative); Leukocyte Esterase Urine Negative (Negative); Nitrite Urine Negative (Negative); Protein Urine Negative (Negative); Specific Gravity Urine > 1.045 (1.000-1.030); Urobilinogen Urine Negative (Negative)
[2022-01-07] MEDS ORDERED: OPTIRAY 320 100ml IV ONE (01:36)
--- NOTE | 2022-01-07 01:58 | Emergency Department Note ---
History of Present Illness General Chief complaint: GI Assessment Stated complaint: SEVERE ABDOMIN PAIN. POSSIBLE CONSTIPATION History of Present Illness Maximum Pain Intensity: 10 This 76-year-old with history of bowel obstructions presents to the ER complaining of severe abdominal pain with no bowel movement x3 days Location: Abdomen Quality: severe Severity: Severe Duration: Today Timing: Today Context: Patient was concerned and came in Modifying factors: better with rest; worse with activity Patient denies chest pain, dyspnea, fevers, vomiting, diarrhea, flulike illness. No history of aortic aneurysm. Home Medications Medication Instructions Recorded Confirmed Type aspirin 81 mg tablet,delayed 81 mg PO DAILY 12/18/20 01/07/22 History release (Aspirin Low Dose) atorvastatin 40 mg tablet (Lipitor) 40 mg PO DAILY 12/18/20 01/07/22 History citalopram 40 mg tablet (Celexa) 40 mg PO DAILY 12/18/20 01/07/22 History enalapril maleate 2.5 mg tablet 2.5 mg PO BID 12/18/20 01/07/22 History (Vasotec) levothyroxine 25 mcg capsule 25 mcg PO DAILY 12/18/20 01/07/22 History metformin 500 mg tablet 500 mg PO BID 08/12/21 01/07/22 History cyanocobalamin (vitamin B-12) 1,000 mcg PO DAILY 09/23/21 01/07/22 History 1,000 mcg tablet fenofibrate micronized 134 mg 134 mg PO DAILY 09/23/21 01/07/22 History capsule metoprolol tartrate 50 mg tablet 50 mg PO BID 09/23/21 01/07/22 History psyllium husk 0.4 gram capsule 0.4 g PO DAILY 09/23/21 01/07/22 History (Fiber (psyllium husk)) semaglutide (Ozempic) 0.25 mg SUBCUT WK 09/23/21 01/07/22 History sildenafil 100 mg tablet (Viagra) 100 mg PO DIRECTED PRN 09/23/21 01/07/22 History pantoprazole 40 mg tablet,delayed 40 mg PO QAM #30 tab 09/24/21 01/07/22 Rx release gabapentin 300 mg capsule 300 mg PO TID #90 cap 12/09/21 01/07/22 Rx Allergies Allergy/AdvReac Type Severity Reaction Status Date / Time niacin Allergy Unknown ITCHY Verified 01/07/22 01:37 SPLOTCHY RASH Past Med/Surg History Medical History CAD (coronary artery disease) 1994-CABG x2 2004-MAYLIN to circumflex Cervical disc disorder at C5-C6 level with radiculopathy Chronic SI joint pain DDD (degenerative disc disease), lumbar Diabetes Foraminal stenosis of lumbar region L5-S1 Heart disease High blood pressure High cholesterol Lumbar back pain with radiculopathy affecting left lower extremity Lumbar radicular pain Rupture of hip abductor tendon Trochanteric bursitis of both hips Surgical History H/O heart artery stent H/O heart bypass surgery H/O laminectomy H/O shoulder replacement S/P hernia surgery Family History Other Diabetes Heart disease Social History Smoking Status: Former smoker Hx Alcohol Use: No Hx Substance Use: No Communication Ability: Effective Second Facing Baster Required: No Beliefs That Will Affect Care: None marital status: Current Living Situation: Spouse current occupational status: retired Feels Safe at Home: Yes Assistive Devices: None Review of Systems A total of 10 systems reviewed and were otherwise negative Physical Exam Vital Signs Vital Signs - 24 hr 01/07/22 00:20 01/07/22 01:24 01/07/22 02:51 Temperature 36.6 C Temperature Source Temporal Artery Scan Pulse Rate 97 H Pulse Rate [Apical] 95 H 97 H Respiratory Rate 18 21 20 Respiratory Effort / Characteristics Non-Labored Spontaneous Respiratory Depth Normal Blood Pressure 135/90 Blood Pressure [Right Arm] 145/89 H 136/85 Blood Pressure Mean 105 Blood Pressure Mean [Right Arm] 107 102 Pulse Oximetry 95 96 94 Oxygen Delivery Method Room Air Room Air Room Air Sepsis New/Unexplained Change in Mental Status No Sepsis Action Taken by Nursing No Action Required VITALS: Vitals are noted on the nurse's note and reviewed by myself. Vital signs stable. GENERAL: Pleasant gentleman who appears in pain, in no acute distress, nondiaphoretic, well-developed well-nourished. SKIN: The skin was without rashes, erythema, edema, or bruising. There is no tenting of the skin. Capillary reflex less than 2 seconds. HEAD: Normocephalic atraumatic. EARS: External auditory canals clear, EYES: Pupils equal round and reactive to light and accommodation. Conjunctivae without injection, sclerae without icterus. Extraocular movements intact. NOSE: Patent, turbinates without inflammation or discharge. MOUTH: Mucous membranes moist. Pharynx without erythema or exudate. Uvula midline. Airway patent. Tongue does not deviate. NECK: Supple without nuchal rigidity. No lymphadenopathy. No thyromegaly. Cervical spine is nontender. No JVD. HEART: Regular rate and rhythm LUNGS: Clear to auscultation bilaterally without wheezes, rales or rhonchi. No retractions or accessory muscle use. ABDOMEN: Positive bowel sounds x 4. Normal tympanic percussion. Soft, diffusely tender to palpation, without masses or organomegaly. Rmaos sign negative. No guarding or rebound tenderness. No CVA tenderness MUSCULOSKELETAL: No muscle atrophy, erythema, or edema noted. NEURO: Patient was alert and oriented to person place and time. Normal sensation to light and sharp touch. No focal neurological deficits. Course Administered Medications Discontinued Medications Sodium Chloride (Nss) 500 mls @ 999 mls/hr IV .Q31M STA Stop: 01/07/22 00:53 Last Infusion: 01/07/22 02:19 Dose: 0 mls/hr Documented by: [id number] Admin: 01/07/22 01:24 Dose: 999 mls/hr Documented by: [id number] Ioversol (Optiray 320 100ml) 100 ml IV ONCE ONE Stop: 01/07/22 01:37 Last Admin: 01/07/22 01:38 Dose: 93 ml Documented by: [id number] Morphine Sulfate (Morphine Sulfate 4 Mg/Ml 1 Ml Carp\Vial) 4 mg IV NOW STA Stop: 01/07/22 00:39 Last Admin: 01/07/22 01:00 Dose: 4 mg Documented by: [id number] Ondansetron HCl (Ondansetron Inj 2 Mg/Ml 2 Ml Vial) 4 mg IV NOW STA Stop: 01/07/22 00:24 Last Admin: 01/07/22 00:48 Dose: 4 mg Documented by: [id number] Medical Decision Making Medical Records Attestation: I reviewed the patient's medical records. Home Medications Current Medication List: was personally reviewed by me Laboratory Data Attestation: I reviewed the patient's lab results. Result diagrams: 01/07/22 00:48 01/07/22 00:48 Lab Results 01/07/22 01/07/22 01/07/22 Range/Units 00:48 00:48 00:48 WBC 10.12 (4.8-10.8) K/uL RBC 4.32 L (4.7-6.1) M/uL Hgb 13.4 L (14.0-18.0) g/dL POC Hgb (14.0-18.0) g/dl Hct 37.9 L (42-52) % POC Hct (42-52) % MCV 87.7 (80-100) fL MCH 31.0 (25-34) pg MCHC 35.4 (32-36) g/dL RDW Std Deviation 43.0 (36.4-46.3) fL RDW Coeff of Guera 13.3 (11.5-14.5) % Plt Count 191 (130-400) K/uL MPV 11.0 H (7.4-10.4) fL Immature Gran % (Auto) 0.4 % Neut % (Auto) 79.3 % Lymph % (Auto) 12.8 % Mclennan % (Auto) 5.5 % Eos % (Auto) 1.7 % Baso % (Auto) 0.3 % Neut # (Auto) 8.02 H (1.4-6.5) K/uL Lymph # (Auto) 1.30 (1.2-3.4) K/uL Mclennan # (Auto) 0.56 (0.11-0.59) K/uL Eos # (Auto) 0.17 (0-0.5) K/uL Baso # (Auto) 0.03 (0-0.2) K/uL Immature Gran # (Auto) 0.04 H (0.00-0.02) K/uL POC Sodium (135-144) mmol/L Sodium 136 (136-145) mmol/L POC Potassium (3.3-5.0) mmol/L Potassium 3.7 (3.5-5.1) mmol/L POC Chloride (101-112) mmol/L Chloride 102 (98-107) mmol/L Carbon Dioxide 22 (21-32) mmol/L POC Total CO2 (24-31) mmol/L Anion Gap 12 H (3-11) POC Anion Gap (16-25) mmol/L POC BUN (7-18) mg/dl BUN 19 (6-23) mg/dl Creatinine 0.97 (0.6-1.4) mg/dl POC Creatinine (0.6-1.3) mg/dl Est Cr Clr Drug Dosing 70.7 ml/min Est GFR ( Amer) 88.8 ml/min Est GFR (Non-Af Amer) 76.6 ml/min BUN/Creatinine Ratio 19.6 (10-20) Glucose 155 H (70-99(Fasting)) mg/dl POC Glucose (other) (70-99) mg/dl Lactate 1.1 (0.4-2.0) mmol/L Calcium 9.3 (8.5-10.1) mg/dl POC Ioniz Calcium Luanne (1.12-1.32) mmol/l Total Bilirubin 0.7 (0.2-1.0) mg/dl AST 10 L (13-39) U/L ALT 8 (7-52) U/L Alkaline Phosphatase 61 (34-104) U/L Troponin I < 0.03 (0-0.04) ng/ml Total Protein 7.2 (6.0-8.3) gm/dl Albumin 4.1 (3.4-5.0) gm/dl Globulin 3.1 (2.5-4.0) gm/dl Albumin/Globulin Ratio 1.3 (0.9-2) Lipase 48 (11-82) U/L Urine Color Urine Appearance (Clear) Urine pH (4.5-7.5) Ur Specific Livingston (1.000-1.030) Urine Protein (Negative) Urine Glucose (UA) (Negative) Urine Ketones (Negative) Urine Blood (Negative) Urine Nitrite (Negative) Urine Bilirubin (Negative) Urine Urobilinogen (Negative) Ur Leukocyte Esterase (Negative) 01/07/22 01/07/22 Range/Units 00:55 01:25 WBC (4.8-10.8) K/uL RBC (4.7-6.1) M/uL Hgb (14.0-18.0) g/dL POC Hgb 12.9 L (14.0-18.0) g/dl Hct (42-52) % POC Hct 38 L (42-52) % MCV (80-100) fL MCH (25-34) pg MCHC (32-36) g/dL RDW Std Deviation (36.4-46.3) fL RDW Coeff of Guera (11.5-14.5) % Plt Count (130-400) K/uL MPV (7.4-10.4) fL Immature Gran % (Auto) % Neut % (Auto) % Lymph % (Auto) % Mclennan % (Auto) % Eos % (Auto) % Baso % (Auto) % Neut # (Auto) (1.4-6.5) K/uL Lymph # (Auto) (1.2-3.4) K/uL Mclennan # (Auto) (0.11-0.59) K/uL Eos # (Auto) (0-0.5) K/uL Baso # (Auto) (0-0.2) K/uL Immature Gran # (Auto) (0.00-0.02) K/uL POC Sodium 138 (135-144) mmol/L Sodium (136-145) mmol/L POC Potassium 3.9 (3.3-5.0) mmol/L Potassium (3.5-5.1) mmol/L POC Chloride 102 (101-112) mmol/L Chloride (98-107) mmol/L Carbon Dioxide (21-32) mmol/L POC Total CO2 23 L (24-31) mmol/L Anion Gap (3-11) POC Anion Gap 18.0 (16-25) mmol/L POC BUN 19 H (7-18) mg/dl BUN (6-23) mg/dl Creatinine (0.6-1.4) mg/dl POC Creatinine 1.0 (0.6-1.3) mg/dl Est Cr Clr Drug Dosing ml/min Est GFR ( Amer) ml/min Est GFR (Non-Af Amer) ml/min BUN/Creatinine Ratio (10-20) Glucose (70-99(Fasting)) mg/dl POC Glucose (other) 163 H (70-99) mg/dl Lactate (0.4-2.0) mmol/L Calcium (8.5-10.1) mg/dl POC Ioniz Calcium Luanne 1.16 (1.12-1.32) mmol/l Total Bilirubin (0.2-1.0) mg/dl AST (13-39) U/L ALT (7-52) U/L Alkaline Phosphatase (34-104) U/L Troponin I (0-0.04) ng/ml Total Protein (6.0-8.3) gm/dl Albumin (3.4-5.0) gm/dl Globulin (2.5-4.0) gm/dl Albumin/Globulin Ratio (0.9-2) Lipase (11-82) U/L Urine Color Yellow Urine Appearance Clear (Clear) Urine pH 5.0 (4.5-7.5) Ur Specific Livingston > 1.045 H (1.000-1.030) Urine Protein Negative (Negative) Urine Glucose (UA) Negative (Negative) Urine Ketones Trace H (Negative) Urine Blood Negative (Negative) Urine Nitrite Negative (Negative) Urine Bilirubin Negative (Negative) Urine Urobilinogen Negative (Negative) Ur Leukocyte Esterase Negative (Negative) Imaging Data Attestation: I personally reviewed and interpreted this imaging study as follows: MDM Narrative Prior records/ancillary studies reviewed. Triage Nursing notes reviewed. Additional history obtained from nursing The patient's history was concerning for abdominal pain. Differential diagnosis: Etiologies such as appendicitis, diverticulitis, PUD, biliary pathology, UTI, pancreatitis, obstruction, mesenteric ischemia, aortic pathology, infections, inflammatory bowel disease, renal colic, as well as others were entertained. Physical examination findings: As above. ER treatment provided: An order was placed for continuous cardiac monitoring. The monitor shows a rate of 60-100 with a sinus rhythm. Morphine Zofran IV fluids, Zosyn On reassessment the patient felt better. Diagnostics interpreted by me: ECG: EKG ordered for abdominal pain EKG: Normal sinus, right axis deviation, anteroseptal infarct, T wave inversion lead III, rate of 89. Impression normal sinus rhythm with right axis deviation to the inversion lead III interpreted by myself I think arrhythmia is unlikely. EKG shows normal sinus rhythm with no interval abnormalities such as QT prolongation or WPW. There are no findings to suggest Brugada syndrome. Cardiac monitoring in the emergency department reveals no tachycardic or bradycardic dysrhythmia. Hypertrophic cardiomyopathy was considered but there are no clear historical elements pointing toward this. EKG is not suggestive. The QRS voltage is not extremely large The labs revealed negative troponin Negative lactic, no worrisome leukocytosis Imaging studies: CT ABDOMEN & PELVIS With Contrast: Comparison 09/23/21. Colonic diverticulosis. Thickened sigmoid colon with adjacent inflammatory stranding, compatible with acute diverticulitis. No definite perforation or discrete diverticular abscess. No bowel obstruction. No evidence for acute appendicitis. Trace free fluid in the pelvis. Cirrhosis with hypertrophied caudate lobe, as before. Several nonspecific subcentimeter hepatic hypodensities, as before. Splenomegaly, suggesting portal hypertension. Bilateral renal hypodensities which may be cysts. No hydronephrosis. No calcified gallstones. No significant biliary dilatation. No acute osseous abnormality. L4-5 laminectomies. Evidence of ventral abdominal wall hernia repair. Fat-containing left inguinal hernia. Extensive coronary artery atherosclerosis. Mild bibasilar atelectasis. Radiologist: Mahendra Duncan M.D. Consultation: A consultation was placed with the hospitalist. The case was discussed and diagnostics were reviewed. The patient was evaluated in the ER for further treatment. Exam and history seem consistent with diverticulitis. Patient was still in severe amount of pain. Medicine was consulted. He will be evaluated for possible admission. He was started antibiotics. Lactate was negative. No abscess. No free air. By the evaluation outlined above emergent etiologies such as appendicitis, PUD, biliary pathology, UTI, pancreatitis, obstruction, m esenteric ischemia, aortic pathology, inflammatory bowel disease, renal colic, as well as others were deemed relatively unlikely. The pt informed about the findings as listed above. All questions were answered and pleased with the treatment. The chart was completed utilizing [employer] voice recognition software. Grammatical errors, random word insertions, pronoun errors, and incomplete sentences are an occassional consequence of this system due to software limitations, ambient noise, and hardware issues. Any formal questions or concerns about the content, text, or information contained within the body of this dictation should be directly addressed to the physician criminal legal assistant for clarification. Impression & Plan Diverticulitis Discharge Plan Visit Data Chief Complaint: GI Assessment Stated Complaint: SEVERE ABDOMIN PAIN. POSSIBLE CONSTIPATION ED Provider: Jh Gutiérrez ED Midlevel Provider: Dianna Serrato Discharge Problem: Diverticulitis Patient Disposition: Admitted As Inpatient Condition: Good Forms Stand Alone Forms: My [facility] Prescriptions Prescriptions: No Action aspirin [Aspirin Low Dose] 81 mg tablet,delayed release (DR/EC) 81 mg PO DAILY RF: 0 atorvastatin [Lipitor] 40 mg tablet 40 mg PO DAILY RF: 0 citalopram [Celexa] 40 mg tablet 40 mg PO DAILY RF: 0 enalapril maleate [Vasotec] 2.5 mg tablet 2.5 mg PO BID RF: 0 levothyroxine 25 mcg capsule 25 mcg PO DAILY RF: 0 metformin 500 mg tablet 500 mg PO BID RF: 0 gabapentin 300 mg capsule 300 mg PO TID Qty: 90 RF: 2 cyanocobalamin (vitamin B-12) 1,000 mcg Tablet 1,000 mcg PO DAILY RF: 0 sildenafil [Viagra] 100 mg Tablet 100 mg PO DIRECTED PRN (Reason: Erectile Dysfunction) RF: 0 fenofibrate micronized 134 mg capsule 134 mg PO DAILY RF: 0 metoprolol tartrate 50 mg tablet 50 mg PO BID RF: 0 psyllium husk [Fiber (psyllium husk)] 0.4 gram Capsule 0.4 g PO DAILY RF: 0 Ozempic 0.25 mg or 0.5 mg(2 mg/1.5 mL) pen injector 0.25 mg SUBCUT WK RF: 0 pantoprazole 40 mg Tablet,Delayed Release (Dr/Ec) 40 mg PO QAM Qty: 30 RF: 0 Referrals Referrals: Neo Han MD [Primary Care Provider] -
[2022-01-07 01:59] LABS: Alanine Aminotransferase 8 U/L (7-52); Albumin Globulin Ratio 1.3 (0.9-2); Albumin Level 4.1 gm/dl (3.4-5.0); Alkaline Phosphatase 61 U/L (34-104); Anion Gap 12 (3-11); Aspartate Aminotransferase 10 U/L (13-39); BUN Creatinine Ratio 19.6 (10-20); Bilirubin,Total 0.7 mg/dl (0.2-1.0); Blood Urea Nitrogen 19 mg/dl (6-23); Calcium 9.3 mg/dl (8.5-10.1); Carbon Dioxide 22 mmol/L (21-32); Chloride 102 mmol/L (98-107); Creatinine Clr Calc Pharmacy 70.7 ml/min; Est GFR (African American) 88.8 ml/min; Est GFR (Non-African American) 76.6 ml/min; Globulin 3.1 gm/dl (2.5-4.0); Glucose 155 mg/dl (70-99(Fasting)); Lipase 48 U/L (11-82); Potassium 3.7 mmol/L (3.5-5.1); Sodium 136 mmol/L (136-145); Total Protein 7.2 gm/dl (6.0-8.3)
[2022-01-07] MEDS ORDERED: PIPERACILLIN/TAZOBACTAM 4.5 GM/120 ML BAG IV ONE (03:06)
[2022-01-07] MEDS ORDERED: PIPERACILL/TAZOBAC CONSULT ACTIVE PRN (03:06)
--- NOTE | 2022-01-07 05:33 | History and Physical Report ---
DATE OF ADMISSION: 01/07/2022. CHIEF COMPLAINT: Abdominal pain and constipation. HISTORY OF PRESENT ILLNESS: This is a 76-year-old male with past medical history significant for type 2 diabetes, hypothyroidism, hyperlipidemia, diabetic polyneuropathy, history of CVA, history of hypertension, history of liver cirrhosis, diverticulosis of colon, irritable bowel syndrome, B12 deficiency, BPH, cervical disk displacement, brachial neuritis, history of thrombocytopenia, depression, primary insomnia, incisional hernia, who presents with abdominal pain and constipation. The patient in the last 3 days is having constipation as well as lower abdominal pain, this is not getting better. Has nausea and one episode of vomiting, which prompted him to come to the ER. He has a history of diverticulitis in the past with CAT scan showing diverticulitis. Denies any fever or chills. Afebrile. No leukocytosis. Currently, resting comfortably and hemodynamically stable. The pain medication helped him, the pain is improved. Denies any chest pain, no shortness of breath, no cough, no headache, no blurred visions, no runny nose, no sore throat. Ambulates okay. ALLERGIES: NIACIN. PAST MEDICAL HISTORY: As mentioned above. PAST SURGICAL HISTORY: Single balloon angioplasty with stent placement, colonoscopy, CABG, EGDs, lumbosacral spinal injections, removal of prostate, removal of salivary stone, tonsillectomy, cataract surgery, lumbar spinal surgery, repair of recurrent incisional hernia, left total shoulder arthroplasty, umbilical hernia repair. MEDICATIONS: The patient is on aspirin 81 mg p.o. daily, atorvastatin 40 mg p.o. daily, citalopram 40 mg p.o. daily, vitamin B12 1000 mcg p.o. daily, enalapril 2.5 mg p.o. b.i.d., fenofibrate 134 mg p.o. daily, gabapentin 300 mg p.o. t.i.d., levothyroxine 25 mcg p.o. daily, metformin 500 mg p.o. b.i.d., metoprolol tartrate 50 mg p.o. b.i.d., Ozempic 0.5 mg subcutaneous weekly, Protonix 40 mg p.o. daily, fiber 0.4 mg p.o. daily. FAMILY HISTORY: Significant for son has cancer; father has diabetes, heart disorder; mother has heart disorder; brother has high cholesterol. SOCIAL HISTORY: . Quit smoking in 2004, smoked 2 packs a day for 40 years. Alcohol occasionally. No drug use. REVIEW OF SYSTEMS: As per HPI. Rest of the review of systems is negative. PHYSICAL EXAMINATION: GENERAL: The patient is of moderate build, not in acute distress. VITAL SIGNS: Temperature 36.6, pulse 97, respiratory rate 20, blood pressure 136/85, oxygen 94% on room air. HEENT: Pupils equal, round and reactive to light. Oral mucosa moist. NECK: No JVD, no neck masses. CARDIOVASCULAR: S1 and S2 heard. Regular rate and rhythm. No murmur, no gallop. RESPIRATORY SYSTEM: Normal AP diameter. No accessory muscle use. No wheezing, no crackles. ABDOMEN: Soft, bowel sounds present. Mild distention, tenderness present in the left quadrant region. No guarding present. CENTRAL NERVOUS SYSTEM: Cranial nerves II-XII grossly intact, nonfocal. EXTREMITIES: No edema, no erythema. LABORATORY DATA: WBC 10.1, hemoglobin 13.4, hematocrit 37.9, platelets 191. Sodium 136, potassium 3.7, chloride 102, bicarbonate 22, BUN 19, creatinine 0.9, serum glucose 155. Lactate 1.1. Total bilirubin 0.7, calcium 9.3, AST 10, ALT 8, alkaline phosphatase 61. Troponin I less than 0.03, lipase 48. Urinalysis, trace ketones. SARS-CoV-2 RNA and rapid test negative. IMAGING DATA: CT of abdomen and pelvis, preliminary report, diverticulitis. EKG: Normal sinus rhythm at a rate of 89. Nonspecific ST changes seen. ASSESSMENT AND PLAN: This 76-year-old male presents with abdominal pain and constipation, found to have diverticulosis. 1. Abdominal pain and constipation: Diverticulitis. No obvious obstruction seen in the preliminary report. ER started on Zosyn, which will be continued. Will keep him n.p.o., IV fluids, IV Dilaudid p.r.n. Consult Surgery in the a.m. Monitor in the medical floor. 2. History of coronary artery disease, status post stents, status post coronary artery bypass grafting: Continue his home aspirin, statin, beta maritza. Currently seems stable. 3. Depression: Continue citalopram. 4. Hypertension: Continue enalapril, metoprolol. Monitor the blood pressure. 5. Gastroesophageal reflux disease: Continue Protonix 6. Diabetes: Hold metformin and Ozempic. The patient will be placed on sliding scale. Will follow the blood sugars, follow HbA1c level. 7. Hypothyroidism: Continue Synthroid. 8. Hyperlipidemia: Continue statin and fenofibrate. 9. History of cirrhosis of liver: Getting fluids. Will monitor for any volume overload. His liver cirrhosis is secondary to TAYLOR. Following with GI. Seems to be stable. 10. Deep venous thrombosis prophylaxis: Sequential compression devices for now. DISPOSITION: Closely monitor in the medical floor. PT, OT prior to discharge. Social service to help with discharge planning. Job ID: [id number] MTDD
[2022-01-07] MEDS ORDERED: ONDANSETRON INJ 2 MG/ML 2 ML VIAL IV PRN (05:49)
[2022-01-07] MEDS ORDERED: ACETAMINOPHEN 325 MG TAB PO PRN (05:49)
[2022-01-07] MEDS: SODIUM CHLORIDE 0.45 % 1,000 ML IV SCH ×2 (06:17→14:33)
[2022-01-07] MEDS: LEVOTHYROXINE SODIUM 25 MCG TABLET PO SCH (06:17)
[2022-01-07] MEDS ORDERED: INSULIN ASPART PER UNIT SC SCH (07:30)
--- NOTE | 2022-01-07 07:56 | CT Scan Report ---
CT abd pelvis IV con only CLINICAL HISTORY: Reported diffuse abdominal pain with nausea and vomiting. Evaluate for small bowel obstruction. COMPARISON STUDY: 09/23/2021 CT DOSE: 656.77 mGy.cm TECHNIQUE: Standard CT of the Abdomen and Pelvis was performed with IV contrast. A dose lowering jelly hnique was utilized adhering to the principles of ALARA. Contrast Volume: Optiray 320, 93 ml. The patient did not receive oral contrast. FINDINGS: Lung base: The lung bases are clear. There is again evidence for extensive coronary artery calcificat ion and previous cardiothoracic surgery. Abdominal cavity: There is no evidence for abdominal mass, adenopathy or ascites. Mesh is present maría elena ng the anterior abdominal wall from previous abdominal surgery. There is again a small left inguinal hernia containing peritoneal fat. Liver: There is homogeneous attenuation of the liver parenchyma. There is no evidence for enhancing m ass lesion. Spleen: There is homogeneous attenuation of the splenic parenchyma. There is no enhancing mass lesion . Pancreas: There is homogeneous attenuation of the pancreatic parenchyma. There is no evidence for mas s lesion or peripancreatic fluid collection. Gall Bladder: The gallbladder is well distended with no evidence for intraluminal calculi, wall thick ening or pericholecystic edema. Adrenal glands: The adrenal glands are normal in size and attenuation. There is no evidence for enhan cing mass lesion. Kidneys: There is homogeneous attenuation of the renal parenchyma bilaterally. There is no evidence f or renal calculus or hydronephrosis. There is no evidence for enhancing mass. Bowel: The bowel loops are normally placed within the abdomen and pelvis without evidence for dilatat ion or obstruction. Compared to previous examination, there is again diverticulosis of the descending and sigmoid colon with interval development of acute sigmoid diverticulitis. Pericolonic inflammator y changes are present. However, no evidence for perforation or abscess is seen. There is no evidence for an inflamed appendix. There is no evidence for free air. Bladder: The bladder is within normal limits with no evidence for focal mass, calculus or diverticulu m. : There is no evidence for pelvic mass or adenopathy. There is no evidence for pelvic ascites. Ther e is mild prostate enlargement. Vasculature: There is no evidence for aneurysmal dilatation of the abdominal aorta. Atherosclerotic c alcification is present. Osseous structures: There is no acute osseous pathology. Degenerative changes and postsurgical change s are again seen. IMPRESSION: 1. Interval development of acute sigmoid diverticulitis without evidence for perforation or abscess. 2. No other significant interval change from the previous study with chronic findings described above . ACT 112: Negative or not required by law. Electronically signed by: Lefty Carcamo M.D. 01/07/2022 7:55 AM
[2022-01-07] MEDS: HYDROmorphone INJ 0.5 MG/0.5 ML SYR IV PRN ×3 (09:01→22:53)
[2022-01-07] MEDS: METOPROLOL TARTRATE 50 MG TAB PO SCH ×2 (10:17→20:35)
[2022-01-07] MEDS: PANTOprazole 40 MG TAB PO SCH (10:17)
[2022-01-07] MEDS: ENALAPRIL MALEATE 5 MG TAB PO SCH ×2 (10:17→20:35)
[2022-01-07] MEDS: ATORVASTATIN 40 MG TAB PO SCH (10:18)
[2022-01-07] MEDS: GABAPENTIN 300 MG CAP PO SCH ×3 (10:18→20:35)
[2022-01-07] MEDS: CYANOCOBALAMIN (B-12) 500 MCG TABLET PO SCH (10:18)
[2022-01-07] MEDS: ASPIRIN 81 MG ECTAB PO SCH (10:20)
[2022-01-07] MEDS: CITALOPRAM 40 MG TAB PO SCH (10:20)
[2022-01-07] MEDS: FENOFIBRATE NANOCRYSTALLIZED 145 MG TABLET PO SCH (10:20)
[2022-01-07] MEDS: PIPERACILLIN/TAZOBACTAM 3.375 GM in DEXTROSE 5% 100 ML IV SCH ×2 (10:42→17:58)
[2022-01-07] MEDS: ENOXAPARIN INJ 40 MG/0.4 ML SYR SQ SCH (10:49)
[2022-01-07] MEDS: INSULIN ASPART PER UNIT SC SCH ×2 (13:15→17:47)
--- NOTE | 2022-01-07 13:33 | Electrocardiogram Report ---
Test Reason : Blood Pressure : / mmHG Vent. Rate : 089 BPM Atrial Rate : 089 BPM P-R Int : 164 ms QRS Dur : 106 ms QT Int : 378 ms P-R-T Axes : 027 111 010 degrees QTc Int : 459 ms Normal sinus rhythm Right axis deviation Anteroseptal infarct (cited on or before 23-SEP-2021) Abnormal ECG When compared with ECG of 23-SEP-2021 12:42, QRS axis Shifted right T wave inversion now evident in Inferior leads T wave inversion no longer evident in Anterior leads QT has lengthened Confirmed by Williams Baumann ([id number]) on 01/07/2022 1:33:12 PM Referred By: REFERRED SELF Confirmed By:Hardik Baumann
--- NOTE | 2022-01-07 16:09 | Surgery Consultation ---
Date of Consultation January 07, 2022 Assessment & Plan (1) Diverticulitis: pt is a 76 year-old male who was admitted to hospital for diverticulitis, IMP: diverticulitis Plan, I agree with conservative treatment, NPO IV fluid, iv antibiotic, control pain, repeat labs in morning,pt agrees with the plan, I answered all questions, will F/U History of Present Illness Reason for Consultation: diverticulitis Requesting Physician: Kelly Dowling MD Attending Physician: Kelly Dowling MD History of Present Illness CHIEF COMPLAINT: Abdominal pain and constipation. HISTORY OF PRESENT ILLNESS: This is a 76-year-old male with past medical history significant for type 2 diabetes, hypothyroidism, hyperlipidemia, diabetic polyneuropathy, history of CVA, history of hypertension, history of liver cirrhosis, diverticulosis of colon, irritable bowel syndrome, B12 defi ciency, BPH, cervical disk displacement, brachial neuritis, history of thrombocytopenia, depression, primary insomnia, incisional hernia, who presents with abdominal pain and constipation. The patient in the last 3 days is having constipation as well as lower abdominal pain, this is not getting better. Has nausea and one episode of vomiting, which prompted him to come to the ER. He has a history of diverticulitis in the past with CAT scan showing diverticulitis. Denies any fever or chills. Afebrile. No leukocytosis. Currently, resting comfortably and hemodynamically stable. The pain medication helped him, the pain is improved. Denies any chest pain, no shortness of breath, no cough, no headache, no blurred visions, no runny nose, no sore throat. Ambulates okay. I ( Itz Pedraza MD ) got a call for consult diverticulitis, I reviewed pt's H/P, labs CT scan with pt, ALLERGIES: NIACIN. PAST MEDICAL HISTORY: As mentioned above. PAST SURGICAL HISTORY: Single balloon angioplasty with stent placement, colonoscopy, CABG, EGDs, lumbosacral spinal injections, removal of prostate, removal of salivary stone, tonsillectomy, cataract surgery, lumbar spinal surgery, repair of recurrent incisional hernia, left total shoulder arthroplasty, umbilical hernia repair. MEDICATIONS: The patient is on aspirin 81 mg p.o. daily, atorvastatin 40 mg p.o. daily, citalopram 40 mg p.o. daily, vitamin B12 1000 mcg p.o. daily, enalapril 2.5 mg p.o. b.i.d., fenofibrate 134 mg p.o. daily, gabapentin 300 mg p.o. t.i.d., levothyroxine 25 mcg p.o. daily, metformin 500 mg p.o. b.i.d., metoprolol tartrate 50 mg p.o. b.i.d., Ozempic 0.5 mg subcutaneous weekly, Protonix 40 mg p.o. daily, fiber 0.4 mg p.o. daily. FAMILY HISTORY: Significant for son has cancer; father has diabetes, heart disorder; mother has heart disorder; brother has high cholesterol. SOCIAL HISTORY: . Quit smoking in 2004, smoked 2 packs a day for 40 years. Alcohol occasionally. No drug use. REVIEW OF SYSTEMS: As per HPI. Rest of the review of systems is negative. Allergies Allergy/AdvReac Type Severity Reaction Status Date / Time niacin Allergy Unknown ITCHY Verified 01/07/22 01:37 SPLOTCHY RASH Home Medications Medication Instructions Recorded Confirmed Type aspirin 81 mg tablet,delayed 81 mg PO DAILY 12/18/20 01/07/22 History release (Aspirin Low Dose) atorvastatin 40 mg tablet (Lipitor) 40 mg PO DAILY 12/18/20 01/07/22 History citalopram 40 mg tablet (Celexa) 40 mg PO DAILY 12/18/20 01/07/22 History enalapril maleate 2.5 mg tablet 2.5 mg PO BID 12/18/20 01/07/22 History (Vasotec) levothyroxine 25 mcg capsule 25 mcg PO DAILY 12/18/20 01/07/22 History metformin 500 mg tablet 500 mg PO BID 08/12/21 01/07/22 History cyanocobalamin (vitamin B-12) 1,000 mcg PO DAILY 09/23/21 01/07/22 History 1,000 mcg tablet fenofibrate micronized 134 mg 134 mg PO DAILY 09/23/21 01/07/22 History capsule metoprolol tartrate 50 mg tablet 50 mg PO BID 09/23/21 01/07/22 History psyllium husk 0.4 gram capsule 0.4 g PO DAILY 09/23/21 01/07/22 History (Fiber (psyllium husk)) semaglutide (Ozempic) 0.25 mg SUBCUT WK 09/23/21 01/07/22 History sildenafil 100 mg tablet (Viagra) 100 mg PO DIRECTED PRN 09/23/21 01/07/22 History pantoprazole 40 mg tablet,delayed 40 mg PO QAM #30 tab 09/24/21 01/07/22 Rx release gabapentin 300 mg capsule 300 mg PO TID #90 cap 12/09/21 01/07/22 Rx Patient History Medical History CAD (coronary artery disease) 1994-CABG x2 2004-MAYLIN to circumflex Cervical disc disorder at C5-C6 level with radiculopathy Chronic SI joint pain DDD (degenerative disc disease), lumbar Diabetes Foraminal stenosis of lumbar region L5-S1 Heart disease High blood pressure High cholesterol Lumbar back pain with radiculopathy affecting left lower extremity Lumbar radicular pain Rupture of hip abductor tendon Trochanteric bursitis of both hips Surgical History H/O heart artery stent H/O heart bypass surgery H/O laminectomy H/O shoulder replacement S/P hernia surgery Family History Other Diabetes Heart disease Social History Smoking Status: Former smoker Cigarettes Per Day: 2 packs; quit 20 yrs ago; Second Hand Exposure: No; Do You Dip or Chew Tobacco: No; Tobacco Cessation Education Requested by Patient: No Hx Alcohol Use: Yes Alcohol type: beer Hx Substance Use: No Preferred Language: Sinhala Communication Ability: Effective Copy Reader Required: No Beliefs That Will Affect Care: None marital status: Current Living Situation: Spouse current occupational status: retired Other Information That Helps Us Care for You: No Feels Safe at Home: Yes Safety Concerns: Feels Safe At This Time Assistive Devices: None Physical Exam Constitutional: WD/WN, vitals as above Eyes: PERRL, conjunctivae normal, anicteric sclerae Neck: trachea midline, no thyromegaly Respiratory: normal respiratory effort, lungs clear to auscultation Cardiovascular: RRR, no murmur, no edema Gastrointestinal (Abdomen): soft, tenderness at LLQ, no rebound pain, no distend, BS + Musculoskeletal: no cyanosis or clubbing, extremities motor strength 5/5 Neurologic: patellar DTR's 2+ bilat, sensation intact Psychiatric: A+Ox3, euthymic affect Results & Data ([facility]) Vital Signs (Past 12 Hours) Vital Signs Temp Pulse Resp BP Pulse Ox 01/07/22 11:13 36.4 C L 72 14 122/78 95 01/07/22 07:59 36.3 C L 75 12 129/75 93 01/07/22 05:30 36.6 C 70 17 132/84 94 Laboratory Results Abnormal lab results 01/07/22 01/07/22 01/07/22 Range/Units 00:48 00:48 00:55 RBC 4.32 L (4.7-6.1) M/uL Hgb 13.4 L (14.0-18.0) g/dL POC Hgb 12.9 L (14.0-18.0) g/dl Hct 37.9 L (42-52) % POC Hct 38 L (42-52) % MPV 11.0 H (7.4-10.4) fL Neut # (Auto) 8.02 H (1.4-6.5) K/uL Immature Gran # (Auto) 0.04 H (0.00-0.02) K/uL POC Total CO2 23 L (24-31) mmol/L Anion Gap 12 H (3-11) POC BUN 19 H (7-18) mg/dl Glucose 155 H (70-99(Fasting)) mg/dl POC Glucose (70-99) mg/dl POC Glucose (other) 163 H (70-99) mg/dl AST 10 L (13-39) U/L Ur Specific [place] (1.000-1.030) Urine Ketones (Negative) 01/07/22 01/07/22 01/07/22 Range/Units 01:25 06:36 12:14 RBC (4.7-6.1) M/uL Hgb (14.0-18.0) g/dL POC Hgb (14.0-18.0) g/dl Hct (42-52) % POC Hct (42-52) % MPV (7.4-10.4) fL Neut # (Auto) (1.4-6.5) K/uL Immature Gran # (Auto) (0.00-0.02) K/uL POC Total CO2 (24-31) mmol/L Anion Gap (3-11) POC BUN (7-18) mg/dl Glucose (70-99(Fasting)) mg/dl POC Glucose 134 H 137 H (70-99) mg/dl POC Glucose (other) (70-99) mg/dl AST (13-39) U/L Ur Specific [place] > 1.045 H (1.000-1.030) Urine Ketones Trace H (Negative) Diagnostic Findings CT abd pelvis IV con only CLINICAL HISTORY: Reported diffuse abdominal pain with nausea and vomiting. Evaluate for small bowel obstruction. COMPARISON STUDY: 09/23/2021 CT DOSE: 656.77 mGy.cm TECHNIQUE: Standard CT of the Abdomen and Pelvis was performed with IV contrast. A dose lowering technique was utilized adhering to the principles of ALARA. Contrast Volume: Optiray 320, 93 ml. The patient did not receive oral contrast. FINDINGS: Lung base: The lung bases are clear. There is again evidence for extensive coronary artery calcification and previous cardiothoracic surgery. Abdominal cavity: There is no evidence for abdominal mass, adenopathy or ascites. Mesh is present along the anterior abdominal wall from previous abdominal surgery. There is again a small left inguinal hernia containing peritoneal fat. Liver: There is homogeneous attenuation of the liver parenchyma. There is no evidence for enhancing mass lesion. Spleen: There is homogeneous attenuation of the splenic parenchyma. There is no enhancing mass lesion. Pancreas: There is homogeneous attenuation of the pancreatic parenchyma. There is no evidence for mass lesion or peripancreatic fluid collection. Gall Bladder: The gallbladder is well distended with no evidence for intraluminal calculi, wall thickening or pericholecystic edema. Adrenal glands: The adrenal glands are normal in size and attenuation. There is no evidence for enhancing mass lesion. Kidneys: There is homogeneous attenuation of the renal parenchyma bilaterally. There is no evidence for renal calculus or hydronephrosis. There is no evidence for enhancing mass. Bowel: The bowel loops are normally placed within the abdomen and pelvis without evidence for dilatation or obstruction. Compared to previous examination, there is again diverticulosis of the descending and sigmoid colon with interval development of acute sigmoid diverticulitis. Pericolonic inflammatory changes are present. However, no evidence for perforation or abscess is seen. There is no evidence for an inflamed appendix. There is no evidence for free air. Bladder: The bladder is within normal limits with no evidence for focal mass, calculus or diverticulum. : There is no evidence for pelvic mass or adenopathy. There is no evidence for pelvic ascites. There is mild prostate enlargement. Vasculature: There is no evidence for aneurysmal dilatation of the abdominal a fernanda. Atherosclerotic calcification is present. Osseous structures: There is no acute osseous pathology. Degenerative changes and postsurgical changes are again seen. IMPRESSION: 1. Interval development of acute sigmoid diverticulitis without evidence for perforation or abscess. 2. No other significant interval change from the previous study with chronic findings described above.
--- NOTE | 2022-01-07 18:56 | Hospitalist Progress Note ---
Date of Service January 07, 2022 Assessment & Plan (1) Diverticulitis: Plan: 76-year-old male presents with abdominal pain and constipation, found to have diverticulitis. He is being managed for the following: #. Abdominal pain and constipation: #. Diverticulitis. Patient presented with lower abdominal pain 3 to 4 days [employer], admitting CTAP suggestive of acute sigmoid diverticulitis without evidence of perforation or abscess. N.p.o., continue with Zosyn 01/07, pain management. #. Other chronic medical conditions: CAD status post stent and CABG, depression, HTN, GERD, DM [hold metformin and Ozempic, continue with SSI], hypothyroidism, HLD, cirrhosis of liver Continue with/resume home meds as and when appropriate. #. DVT prophylaxis: SCDs for now DISPOSITION: Closely monitor in the medical floor. PT, OT prior to discharge. Social service to help with discharge planning. Admission and Anticipated Discharge Date Admission Date: January 07, 2022 Subjective Patient seen and examined at bedside as a follow-up of abdominal pain and constipation, likely diverticulitis. Patient lying in bed, on room air, NAD, no new acute events overnight. Patient reports low belly pain, also reports low back pain. Low back pain at baseline, low belly pain is a new 1 for the patient. Pt reports nausea and vomit x1 while in hospital. Patient remains n.p.o. Patient denies any fever/chills/headache/dizziness/chest pain/palpitation/other review of symptoms. Physical Exam Physical Exam: GENERAL: Alert and oriented x3. NAD, on RA. HEENT: No pallor, no icterus. Pupils equal, round and reactive to light. Oral mucosa moist. NECK: No JVD, no neck masses. HEART: S1 and S2 heard. Regular rate and rhythm. No murmur, no gallop. RESPIRATORY SYSTEM: Normal AP diameter. No accessory muscle use. No wheezing, no crackles. ABDOMEN: Soft, bowel sounds present, lower abd tender, no distention. CENTRAL NERVOUS SYSTEM: No facial droop. Speech is clear. Obeys simple comma nds. Moves extremities. EXTREMITIES: No edema, no erythema seen. Results & Data Results & Data ([facility]) Vital Signs (Past 12 Hours) Vital Signs Temp Pulse Resp BP Pulse Ox 01/07/22 16:18 36.6 C 73 16 121/77 96 01/07/22 11:13 36.4 C L 72 14 122/78 95 01/07/22 07:59 36.3 C L 75 12 129/75 93
[2022-01-07] MEDS ORDERED: SODIUM CHLORIDE 0.9% 500 ML IV ONE (21:23)
[2022-01-08] MEDS: INSULIN ASPART PER UNIT SC SCH ×5 (00:01→21:00)
[2022-01-08] MEDS: LACTATED RINGER'S 1,000 ML IV SCH ×3 (00:13→15:45)
[2022-01-08] MEDS: PIPERACILLIN/TAZOBACTAM 3.375 GM in DEXTROSE 5% 100 ML IV SCH ×3 (01:54→17:45)
[2022-01-08] MEDS: LEVOTHYROXINE SODIUM 25 MCG TABLET PO SCH (05:33)
[2022-01-08 06:25] LABS: Hematocrit (blood only) 31.6 % (42-52); Mean Corpuscular Hemoglobin 30.6 pg (25-34); Mean Corpuscular Hgb Conc 34.8 g/dL (32-36); Mean Corpuscular Volume 87.8 fL (80-100); Platelet Count 136 K/uL (130-400); RDW Coefficient of Variation 13.4 % (11.5-14.5); RDW Standard Deviation 43.5 fL (36.4-46.3); White Blood Count 7.32 K/uL (4.8-10.8)
[2022-01-08 06:47] LABS: BUN Creatinine Ratio 14.5 (10-20); Calcium 8.2 mg/dl (8.5-10.1); Creatinine Clr Calc Pharmacy 99.2 ml/min; Est GFR (African American) 108.4 ml/min; Est GFR (Non-African American) 93.5 ml/min; Magnesium 1.5 mg/dl (1.7-2.4); Potassium 3.3 mmol/L (3.5-5.1)
[2022-01-08 07:45] LABS: Estimated Average Glucose 134 mg/dl; Hemoglobin A1C 6.3 % (4.5-5.6)
[2022-01-08] MEDS: GABAPENTIN 300 MG CAP PO SCH ×3 (09:00→21:20)
[2022-01-08] MEDS: ENALAPRIL MALEATE 5 MG TAB PO SCH ×2 (09:00→21:19)
[2022-01-08] MEDS: METOPROLOL TARTRATE 50 MG TAB PO SCH ×2 (09:00→21:21)
[2022-01-08] MEDS: PANTOprazole 40 MG TAB PO SCH (09:00)
[2022-01-08] MEDS: FENOFIBRATE NANOCRYSTALLIZED 145 MG TABLET PO SCH (09:00)
[2022-01-08] MEDS: ATORVASTATIN 40 MG TAB PO SCH (09:01)
[2022-01-08] MEDS: CYANOCOBALAMIN (B-12) 500 MCG TABLET PO SCH (09:01)
[2022-01-08] MEDS: ASPIRIN 81 MG ECTAB PO SCH (09:01)
[2022-01-08] MEDS: CITALOPRAM 40 MG TAB PO SCH (09:01)
[2022-01-08] MEDS ORDERED: POTASSIUM CHLORIDE CRTAB 20 MEQ TABCR PO STA (09:23)
[2022-01-08] MEDS: MAGNESIUM SULFATE / D5W 1 GM/100 ML BAG IV SCH ×3 (10:30→14:52)
[2022-01-08] MEDS: ENOXAPARIN INJ 40 MG/0.4 ML SYR SQ SCH (10:34)
[2022-01-08] MEDS ORDERED: bisacodyL 10 MG SUPP PR STA (11:12)
[2022-01-08] MEDS ORDERED: Nursing to Pharmacy Communication SCH (11:15)
--- NOTE | 2022-01-08 11:41 | Surgery Progress Note ---
Date of Service January 08, 2022 Assessment & Plan (1) Diverticulitis: Plan: Uncomplicated diverticulitis afebrile hypotensive last evening with systolic bp in 80s however responded to IV fluid bolus. Lactate normal at 0.5 pain in LLQ , pain improving slowly per patient passing gas, no bowel movement since Wednesday Plan: Continue pain management as needed Continue IV abx okay for clear liquids advised to go really slowly encouraged oob and ambulating hallway continue medical management Dr. Pedraza was present during my examination and agrees with above. Admission and Anticipated Discharge Date Admission Date: January 07, 2022 Subjective still having abdominal pain but is better today no nausea or vomiting no bowel movement but passing some gas Physical Exam Constitutional: WD/WN, vitals as above + obese; no acute distress and not ill appearing Neck: normal visual inspection and trachea midline Respiratory: normal respiratory effort; no respiratory distress Gastrointestinal (Abdomen): Inspection/Auscultation: abdomen normal to inspection and + abdominal surgical scar (multiple abdominal scars present); abdomen not distended Percussion/Palpation: + abdomen tender (suprapubic and LLQ on mild palpation), + guarding (voluntary guarding on deep palpation in LLQ) and abdomen soft; abdomen not rigid Skin: no rashes, warm and dry Psychiatric: A+Ox3, euthymic affect Results & Data ([facility]) Vital Signs (Past 12 Hours) Vital Signs Temp Pulse Resp BP Pulse Ox 01/08/22 08:18 36.8 C 74 16 116/72 92 Laboratory Results 01/08/22 01/08/22 01/08/22 Range/Units 06:13 05:21 05:21 WBC (4.8-10.8) K/uL RBC (4.7-6.1) M/uL Hgb (14.0-18.0) g/dL Hct (42-52) % MCV (80-100) fL MCH (25-34) pg MCHC (32-36) g/dL RDW Std Deviation (36.4-46.3) fL RDW Coeff of Guera (11.5-14.5) % Plt Count (130-400) K/uL MPV (7.4-10.4) fL Sodium 134 L (136-145) mmol/L Potassium 3.3 L (3.5-5.1) mmol/L Chloride 102 (98-107) mmol/L Carbon Dioxide 26 (21-32) mmol/L Anion Gap 6 (3-11) BUN 10 (6-23) mg/dl Creatinine 0.69 (0.6-1.4) mg/dl Est Cr Clr Drug Dosing 99.2 ml/min Est GFR ( Amer) 108.4 ml/min Est GFR (Non-Af Amer) 93.5 ml/min BUN/Creatinine Ratio 14.5 (10-20) Glucose 118 H (70-99(Fasting)) mg/dl POC Glucose 126 H (70-99) mg/dl Estimat Average Glucose 134 mg/dl Hemoglobin A1c 6.3 H (4.5-5.6) % Lactate (0.4-2.0) mmol/L Calcium 8.2 L (8.5-10.1) mg/dl Magnesium 1.5 L (1.7-2.4) mg/dl 01/08/22 01/08/22 01/07/22 Range/Units 05:21 00:21 22:28 WBC 7.32 (4.8-10.8) K/uL RBC 3.60 L (4.7-6.1) M/uL Hgb 11.0 L (14.0-18.0) g/dL Hct 31.6 L (42-52) % MCV 87.8 (80-100) fL MCH 30.6 (25-34) pg MCHC 34.8 (32-36) g/dL RDW Std Deviation 43.5 (36.4-46.3) fL RDW Coeff of Guera 13.4 (11.5-14.5) % Plt Count 136 (130-400) K/uL MPV 11.0 H (7.4-10.4) fL Sodium (136-145) mmol/L Potassium (3.5-5.1) mmol/L Chloride (98-107) mmol/L Carbon Dioxide (21-32) mmol/L Anion Gap (3-11) BUN (6-23) mg/dl Creatinine (0.6-1.4) mg/dl Est Cr Clr Drug Dosing ml/min Est GFR ( Amer) ml/min Est GFR (Non-Af Amer) ml/min BUN/Creatinine Ratio (10-20) Glucose (70-99(Fasting)) mg/dl POC Glucose 121 H (70-99) mg/dl Estimat Average Glucose mg/dl Hemoglobin A1c (4.5-5.6) % Lactate 0.5 (0.4-2.0) mmol/L Calcium (8.5-10.1) mg/dl Magnesium (1.7-2.4) mg/dl 01/07/22 01/07/22 Range/Units 17:12 12:14 WBC (4.8-10.8) K/uL RBC (4.7-6.1) M/uL Hgb (14.0-18.0) g/dL Hct (42-52) % MCV (80-100) fL MCH (25-34) pg MCHC (32-36) g/dL RDW Std Deviation (36.4-46.3) fL RDW Coeff of Guera (11.5-14.5) % Plt Count (130-400) K/uL MPV (7.4-10.4) fL Sodium (136-145) mmol/L Potassium (3.5-5.1) mmol/L Chloride (98-107) mmol/L Carbon Dioxide (21-32) mmol/L Anion Gap (3-11) BUN (6-23) mg/dl Creatinine (0.6-1.4) mg/dl Est Cr Clr Drug Dosing ml/min Est GFR ( Amer) ml/min Est GFR (Non-Af Amer) ml/min BUN/Creatinine Ratio (10-20) Glucose (70-99(Fasting)) mg/dl POC Glucose 117 H 137 H (70-99) mg/dl Estimat Average Glucose mg/dl Hemoglobin A1c (4.5-5.6) % Lactate (0.4-2.0) mmol/L Calcium (8.5-10.1) mg/dl Magnesium (1.7-2.4) mg/dl
[2022-01-08] MEDS: HYDROmorphone INJ 0.5 MG/0.5 ML SYR IV PRN (16:52)
--- NOTE | 2022-01-08 17:44 | Hospitalist Progress Note ---
Date of Service January 08, 2022 Assessment & Plan (1) Diverticulitis: Plan: 76-year-old male presents with abdominal pain and constipation, found to have diverticulitis. He is being managed for the following: #. Abdominal pain and constipation: #. Diverticulitis Patient presented with lower abdominal pain 3 to 4 days [employer], admitting CTAP suggestive of acute sigmoid diverticulitis without evidence of perforation or abscess. Pt afebrile, WBC wnl. No BM, but passing gas, Report LLQ pain improving Pt on clears, will continue to monitor, continue with Zosyn 01/07, pain management. Likely DC ivf waylon. Monitor and replete electrolytes as and when appropriate. #. Other chronic medical conditions: CAD status post stent and CABG, depression, HTN, GERD, DM [hold metformin and Ozempic, continue with SSI], hypothyroidism, HLD, cirrhosis of liver Continue with/resume home meds as and when appropriate. #. DVT prophylaxis: SCDs for now DISPOSITION: Closely monitor in the medical floor. PT, OT prior to discharge. Social service to help with discharge planning. Admission and Anticipated Discharge Date Admission Date: January 07, 2022 Subjective Patient seen and examined at bedside as a follow-up of abdominal pain and constipation, likely diverticulitis. Patient lying in bed, on room air, NAD, no new acute events overnight. Patient reports low belly pain improving, denies further nausea or vomiting. Low back pain at baseline, patient reports no bowel movement but is moving gas. Patient started on clear liquids per surgery today. Patient denies any fever/chills/headache/dizziness/chest pain/palpitation/other review of symptoms. Physical Exam Physical Exam: GENERAL: Alert and oriented x3. NAD, on RA. HEENT: No pallor, no icterus. Pupils equal, round and reactive to light. Oral mucosa moist. NECK: No JVD, no neck masses. HEART: S1 and S2 heard. Regular rate and rhythm. No murmur, no gallop. RESPIRATORY SYSTEM: Normal AP diameter. No accessory muscle use. No wheezing, no crackles. ABDOMEN: Soft, bowel sounds present, lower abd tenderness improving, no distention. CENTRAL NERVOUS SYSTEM: No facial droop. Speech is clear. Obeys simple comman ds. Moves extremities. EXTREMITIES: No edema, no erythema seen. Results & Data Results & Data ([facility]) Vital Signs (Past 12 Hours) Vital Signs Temp Pulse Resp BP Pulse Ox 01/08/22 15:15 36.8 C 64 16 115/72 92 01/08/22 08:18 36.8 C 74 16 116/72 92
[2022-01-09] MEDS: PIPERACILLIN/TAZOBACTAM 3.375 GM in DEXTROSE 5% 100 ML IV SCH ×3 (02:04→17:32)
[2022-01-09] MEDS: HYDROmorphone INJ 0.5 MG/0.5 ML SYR IV PRN ×3 (02:04→20:38)
[2022-01-09] MEDS: LEVOTHYROXINE SODIUM 25 MCG TABLET PO SCH (05:43)
[2022-01-09 07:28] LABS: Hematocrit (blood only) 31.2 % (42-52); Hemoglobin 10.5 g/dL (14.0-18.0); Mean Corpuscular Hemoglobin 30.2 pg (25-34); Mean Corpuscular Hgb Conc 33.7 g/dL (32-36); Mean Corpuscular Volume 89.7 fL (80-100); Mean Platelet Volume 11.2 fL (7.4-10.4); Platelet Count 145 K/uL (130-400); RDW Coefficient of Variation 13.6 % (11.5-14.5); RDW Standard Deviation 44.3 fL (36.4-46.3); Red Blood Count 3.48 M/uL (4.7-6.1); White Blood Count 3.94 K/uL (4.8-10.8)
[2022-01-09 07:55] LABS: BUN Creatinine Ratio 8.3 (10-20); Calcium 8.2 mg/dl (8.5-10.1); Creatinine Clr Calc Pharmacy 81.5 ml/min; Est GFR (Non-African American) 86.3 ml/min; Magnesium 1.8 mg/dl (1.7-2.4); Phosphorus 2.6 mg/dl (2.5-4.9); Potassium 3.6 mmol/L (3.5-5.1)
[2022-01-09] MEDS: ATORVASTATIN 40 MG TAB PO SCH (08:29)
[2022-01-09] MEDS: METOPROLOL TARTRATE 50 MG TAB PO SCH ×2 (08:29→20:40)
[2022-01-09] MEDS: PANTOprazole 40 MG TAB PO SCH (08:30)
[2022-01-09] MEDS: CITALOPRAM 40 MG TAB PO SCH (08:30)
[2022-01-09] MEDS: FENOFIBRATE NANOCRYSTALLIZED 145 MG TABLET PO SCH (08:30)
[2022-01-09] MEDS: CYANOCOBALAMIN (B-12) 500 MCG TABLET PO SCH (08:31)
[2022-01-09] MEDS: ASPIRIN 81 MG ECTAB PO SCH (08:31)
[2022-01-09] MEDS: ENALAPRIL MALEATE 5 MG TAB PO SCH ×2 (08:31→20:40)
[2022-01-09] MEDS: GABAPENTIN 300 MG CAP PO SCH ×3 (08:32→20:40)
[2022-01-09] MEDS: ENOXAPARIN INJ 40 MG/0.4 ML SYR SQ SCH (08:33)
[2022-01-09] MEDS: INSULIN ASPART PER UNIT SC SCH ×4 (08:57→20:43)
[2022-01-09] MEDS ORDERED: POLYETHYLENE (MIRALAX) 17 GM PACK PO STA (09:25)
--- NOTE | 2022-01-09 09:29 | Surgery Progress Note ---
Date of Service January 09, 2022 Assessment & Plan (1) Diverticulitis: Plan: Uncomplicated diverticulitis afebrile pain in LLQ , improving passing gas, no bowel movement since Wednesday tolerating clear liquids Plan: Continue pain management as needed Continue IV abx possibly full liquids later today miralax po now continue oob and ambulating hallway continue medical management Dr. Pedraza has seen patient and agrees with above. Admission and Anticipated Discharge Date Admission Date: January 07, 2022 Subjective feeling better today still having pain but better than yesterday tolerating clear liquids, no n,v passing gas no bowel movement since Wednesday or after suppository yesterday feeling gurgling in abdomen this morning urinating without difficulty ambulating hallway Physical Exam Constitutional: WD/WN, vitals as above + obese; no acute distress and not ill appearing Neck: normal visual inspection and trachea midline Respiratory: normal respiratory effort; no respiratory distress and no labored breathing Gastrointestinal (Abdomen): Inspection/Auscultation: abdomen normal to inspection and normal bowel sounds; abdomen not distended Percussion/Palpation: + abdomen tender (LLQ on deep palpation and suprapubic), + guarding (voluntary in LLQ on deep palpation) and abdomen soft; abdomen not rigid and abdomen not firm Skin: no rashes, warm and dry Psychiatric: A+Ox3, euthymic affect Results & Data ([facility]) Vital Signs (Past 12 Hours) Vital Signs Temp Pulse Resp BP Pulse Ox 01/09/22 08:28 63 112/69 01/09/22 08:06 36.6 C 57 L 16 115/68 94 01/09/22 08:04 63 121/79 Laboratory Results 01/09/22 01/09/22 01/09/22 Range/Units 08:23 06:36 06:36 WBC 3.94 L (4.8-10.8) K/uL RBC 3.48 L (4.7-6.1) M/uL Hgb 10.5 L (14.0-18.0) g/dL Hct 31.2 L (42-52) % MCV 89.7 (80-100) fL MCH 30.2 (25-34) pg MCHC 33.7 (32-36) g/dL RDW Std Deviation 44.3 (36.4-46.3) fL RDW Coeff of Guera 13.6 (11.5-14.5) % Plt Count 145 (130-400) K/uL MPV 11.2 H (7.4-10.4) fL Sodium 137 (136-145) mmol/L Potassium 3.6 (3.5-5.1) mmol/L Chloride 104 (98-107) mmol/L Carbon Dioxide 27 (21-32) mmol/L Anion Gap 6 (3-11) BUN 7 (6-23) mg/dl Creatinine 0.84 (0.6-1.4) mg/dl Est Cr Clr Drug Dosing 81.5 ml/min Est GFR ( Amer) 100.0 ml/min Est GFR (Non-Af Amer) 86.3 ml/min BUN/Creatinine Ratio 8.3 L (10-20) Glucose 151 H (70-99(Fasting)) mg/dl POC Glucose 146 H (70-99) mg/dl Calcium 8.2 L (8.5-10.1) mg/dl Phosphorus 2.6 (2.5-4.9) mg/dl Magnesium 1.8 (1.7-2.4) mg/dl 01/08/22 01/08/22 01/08/22 Range/Units 21:06 17:19 11:59 WBC (4.8-10.8) K/uL RBC (4.7-6.1) M/uL Hgb (14.0-18.0) g/dL Hct (42-52) % MCV (80-100) fL MCH (25-34) pg MCHC (32-36) g/dL RDW Std Deviation (36.4-46.3) fL RDW Coeff of Guera (11.5-14.5) % Plt Count (130-400) K/uL MPV (7.4-10.4) fL Sodium (136-145) mmol/L Potassium (3.5-5.1) mmol/L Chloride (98-107) mmol/L Carbon Dioxide (21-32) mmol/L Anion Gap (3-11) BUN (6-23) mg/dl Creatinine (0.6-1.4) mg/dl Est Cr Clr Drug Dosing ml/min Est GFR ( Amer) ml/min Est GFR (Non-Af Amer) ml/min BUN/Creatinine Ratio (10-20) Glucose (70-99(Fasting)) mg/dl POC Glucose 119 H 97 131 H (70-99) mg/dl Calcium (8.5-10.1) mg/dl Phosphorus (2.5-4.9) mg/dl Magnesium (1.7-2.4) mg/dl
[2022-01-09] MEDS: LACTATED RINGER'S 1,000 ML IV SCH (09:50)
--- NOTE | 2022-01-09 16:07 | Hospitalist Progress Note ---
Date of Service January 09, 2022 Assessment & Plan (1) Diverticulitis: Plan: 76-year-old male presents with abdominal pain and constipation, found to have diverticulitis. He is being managed for the following: #. Abdominal pain and constipation: #. Diverticulitis Patient presented with lower abdominal pain 3 to 4 days [employer], admitting CTAP suggestive of acute sigmoid diverticulitis without evidence of perforation or abscess. Pt afebrile, WBC wnl. No BM, but passing gas, Report LLQ pain improving Pt on clears, tolerating well, advance to full liquid, will continue to monitor, continue with Zosyn 01/07, pain management. DC IV fluid. Bowel regimen. Monitor and replete electrolytes as and when appropriate. #. Other chronic medical conditions: CAD status post stent and CABG, depression, HTN, GERD, DM [hold metformin and Ozempic, continue with SSI], hypothyroidism, HLD, cirrhosis of liver Continue with/resume home meds as and when appropriate. #. DVT prophylaxis: SCDs for now DISPOSITION: Closely monitor in the medical floor. PT, OT prior to discharge. Social service to help with discharge planning. Admission and Anticipated Discharge Date Admission Date: January 07, 2022 Subjective Patient seen and examined at bedside as a follow-up of abdominal pain and constipation, likely diverticulitis. Patient lying in bed, on room air, NAD, no new acute events overnight. Patient reports low belly pain improving, has not had bowel movement. But moving gas. Low back pain at baseline. Patient tolerating clear liquids well. Advance to full liquids later today per surgery. Patient denies any fever/chills/headache/dizziness/chest pain/palpitation/other review of symptoms. Physical Exam Physical Exam: GENERAL: Alert and oriented x3. NAD, on RA. HEENT: No pallor, no icterus. Pupils equal, round and reactive to light. Oral mucosa moist. NECK: No JVD, no neck masses. HEART: S1 and S2 heard. Regular rate and rhythm. No murmur, no gallop. RESPIRATORY SYSTEM: Normal AP diameter. No accessory muscle use. No wheezing, no crackles. ABDOMEN: Soft, bowel sounds present, lower abd tenderness improving, no distention. CENTRAL NERVOUS SYSTEM: No facial droop. Speech is clear. Obeys simple commands. Moves extremities. EXTREMITIES: No edema, no erythema seen. Results & Data Results & Data ([facility]) Vital Signs (Past 12 Hours) Vital Signs Temp Pulse Resp BP BP Pulse Ox 01/09/22 15:11 36.5 C 58 L 18 107/66 94 01/09/22 08:28 63 112/69 01/09/22 08:06 36.6 C 57 L 16 115/68 94 01/09/22 08:04 63 121/79
[2022-01-09] MEDS: DOCUSATE SODIUM 100 MG CAP PO SCH (20:40)
[2022-01-10] MEDS: PIPERACILLIN/TAZOBACTAM 3.375 GM in DEXTROSE 5% 100 ML IV SCH ×3 (01:58→18:06)
[2022-01-10 05:38] LABS: Hematocrit (blood only) 32.6 % (42-52); Hemoglobin 11.1 g/dL (14.0-18.0); Mean Corpuscular Hemoglobin 30.5 pg (25-34); Mean Corpuscular Volume 89.6 fL (80-100); Mean Platelet Volume 10.6 fL (7.4-10.4); Platelet Count 156 K/uL (130-400); RDW Coefficient of Variation 13.5 % (11.5-14.5); RDW Standard Deviation 44.1 fL (36.4-46.3); Red Blood Count 3.64 M/uL (4.7-6.1); White Blood Count 4.92 K/uL (4.8-10.8)
[2022-01-10] MEDS: LEVOTHYROXINE SODIUM 25 MCG TABLET PO SCH (05:38)
[2022-01-10 05:58] LABS: BUN Creatinine Ratio 6.4 (10-20); Calcium 8.5 mg/dl (8.5-10.1); Creatinine Clr Calc Pharmacy 73.8 ml/min; Est GFR (African American) 92.2 ml/min; Est GFR (Non-African American) 79.6 ml/min; Magnesium 1.7 mg/dl (1.7-2.4); Phosphorus 3.1 mg/dl (2.5-4.9); Potassium 3.9 mmol/L (3.5-5.1)
--- NOTE | 2022-01-10 06:34 | Surgery Progress Note ---
Date of Service January 10, 2022 Assessment & Plan (1) Diverticulitis: Plan: Patient has been admitted by the hospitalists. Recommend proceeding as follows: Provide analgesics Provide antiemetics Continue antibiotics in the form of Zosyn Continue n.p.o. status until further improvement in clinical exam is noted and until return of bowel function Recommend implementing hydration measures with IV fluids until diet can be advanced Admission and Anticipated Discharge Date Admission Date: January 07, 2022 Supervising Physician Co-Signing Physician Notes I personally saw and evaluated the patient with Eric Holt PA-C and agree with the assessment and plan. 76-year-old male with acute diverticulitis, resolving He has no leukocytosis, can consider switching to p.o. antibiotics today We will advance him to a low fiber diet He did have a bowel movement and his abdominal exam is benign If tolerates low fiber diet could potentially discharge tomorrow with 2 weeks of oral antibiotics We will follow Subjective Patient is resting in bed. Since admission he notes that his abdominal pain has slightly improved. He denies any bowel movement or flatus since admission. He denies any fevers, shakes, chills Physical Exam Gastrointestinal (Abdomen): Abdomen is soft and nondistended. Bowel sounds are hypoactive. Patient did have pain with palpation which appeared to be greatest in the left lower quadrant. Results & Data ([facility]) Vital Signs (Past 12 Hours) Vital Signs Temp Pulse Resp BP Pulse Ox 01/09/22 23:17 36.5 C 52 L 16 109/69 93 PG Care Time/CCT Total # of Minutes Spent Total Time Spent with Patient: Total time spent is greater than 50% in coordination of care (as documented) at patient's floor/unit and/or counseling patient: Coding Level of Care Code 04294 Subseq Hosp Care Lvl 1 Diagnoses Diverticulitis K57.92
[2022-01-10] MEDS: GABAPENTIN 300 MG CAP PO SCH ×3 (08:24→20:19)
[2022-01-10] MEDS: METOPROLOL TARTRATE 50 MG TAB PO SCH ×2 (08:24→20:19)
[2022-01-10] MEDS: ATORVASTATIN 40 MG TAB PO SCH (08:24)
[2022-01-10] MEDS: ENALAPRIL MALEATE 5 MG TAB PO SCH ×2 (08:24→20:18)
[2022-01-10] MEDS: CITALOPRAM 40 MG TAB PO SCH (08:24)
[2022-01-10] MEDS: PANTOprazole 40 MG TAB PO SCH (08:24)
[2022-01-10] MEDS: CYANOCOBALAMIN (B-12) 500 MCG TABLET PO SCH (08:24)
[2022-01-10] MEDS: FENOFIBRATE NANOCRYSTALLIZED 145 MG TABLET PO SCH (08:24)
[2022-01-10] MEDS: DOCUSATE SODIUM 100 MG CAP PO SCH ×2 (08:24→20:18)
[2022-01-10] MEDS: ENOXAPARIN INJ 40 MG/0.4 ML SYR SQ SCH (08:25)
[2022-01-10] MEDS: ASPIRIN 81 MG ECTAB PO SCH (08:25)
[2022-01-10] MEDS: INSULIN ASPART PER UNIT SC SCH ×4 (08:37→20:49)
--- NOTE | 2022-01-10 17:05 | Hospitalist Progress Note ---
Date of Service January 10, 2022 Assessment & Plan (1) Diverticulitis: Plan: 76-year-old male presents with abdominal pain and constipation, found to have diverticulitis. He is being managed for the following: #. Abdominal pain and constipation: #. Diverticulitis Patient presented with lower abdominal pain 3 to 4 days [employer], admitting CTAP suggestive of acute sigmoid diverticulitis without evidence of perforation or abscess. Pt afebrile, WBC wnl. has BM now,, Report LLQ pain improving Pt on low fiber diet and tolerating diet well, continue with Zosyn 01/07, pain management. Continue with bowel regimen, patient with 2 bowel movements today. Monitor and replete electrolytes as and when appropriate. #. Other chronic medical conditions: CAD status post stent and CABG, depression, HTN, GERD, DM [hold metformin and Ozempic, continue with SSI], hypothyroidism, HLD, cirrhosis of liver Continue with/resume home meds as and when appropriate. #. DVT prophylaxis: lovenox DISPOSITION: Closely monitor in the medical floor. PT, OT prior to discharge. Social service to help with discharge planning. Admission and Anticipated Discharge Date Admission Date: January 07, 2022 Subjective Patient seen and examined at bedside as a follow-up of abdominal pain and constipation, likely diverticulitis. Patient lying in bed, on room air, NAD, no new acute events overnight. Patient reports low belly pain improving, has 2 bowel movements today and is tolerating diet well. Low back pain at baseline. Patient denies any fever/chills/headache/dizziness/chest pain/palpitation/other review of symptoms. Physical Exam Physical Exam: GENERAL: Alert and oriented x3. NAD, on RA. HEENT: No pallor, no icterus. Pupils equal, round and reactive to light. Oral mucosa moist. NECK: No JVD, no neck masses. HEART: S1 and S2 heard. Regular rate and rhythm. No murmur, no gallop. RESPIRATORY SYSTEM: Normal AP diameter. No accessory muscle use. No wheezing, no crackles. ABDOMEN: Soft, bowel sounds present, lower abd tenderness improving, no distention. CENTRAL NERVOUS SYSTEM: No facial droop. Speech is clear. Obeys simple commands. Moves extremities. EXTREMITIES: No edema, no erythema seen. Results & Data Results & Data ([facility]) Vital Signs (Past 12 Hours) Vital Signs Temp Pulse Resp BP Pulse Ox 01/10/22 16:16 36.3 C L 59 L 18 119/67 93 01/10/22 07:35 36.4 C L 64 16 131/79 95
[2022-01-11] MEDS: PIPERACILLIN/TAZOBACTAM 3.375 GM in DEXTROSE 5% 100 ML IV SCH ×3 (01:13→17:33)
[2022-01-11] MEDS: LEVOTHYROXINE SODIUM 25 MCG TABLET PO SCH (05:12)
--- NOTE | 2022-01-11 05:59 | Surgery Progress Note ---
Date of Service January 11, 2022 Assessment & Plan (1) Diverticulitis: Plan: Patient has been admitted by the hospitalists. Recommend proceeding as follows: Continue analgesics Continue antiemetics Continue antibiotics in the form of Zosyn while in the hospital. He should be transitioned to oral antibiotics for a total of 2 weeks at time of discharge. Continue diet as tolerated Admission and Anticipated Discharge Date Admission Date: January 07, 2022 Supervising Physician Co-Signing Physician Notes I personally saw and evaluated the patient with Eric Holt PA-C and agree with the assessment and plan. 76-year-old male with acute diverticulitis, resolving He has no leukocytosis or abdominal pain at this point He is tolerating a low fiber diet He stable for discharge from a surgical standpoint We will give him 2 weeks of p.o. antibiotics as an outpatient Surgery will sign off, please call with any questions or concerns Subjective Patient is resting comfortably in bed. He said he had several bowel movements over the past 12 to 24 hours and notes that his abdominal pain is markedly improved. He denies any fevers, shakes, chills. He says he ate solid food for dinner last night which he tolerated well. Physical Exam Gastrointestinal (Abdomen): Abdomen is soft and nondistended. Pain noted that was present on previous exam is markedly improved. Patient did have minimal pain with palpation left lower quadrant. Results & Data ([facility]) Vital Signs (Past 12 Hours) Vital Signs Temp Pulse Resp BP Pulse Ox 01/10/22 22:06 36.9 C 69 18 94/57 L 91 PG Care Time/CCT Total # of Minutes Spent Total Time Spent with Patient: Total time spent is greater than 50% in coordination of care (as documented) at patient's floor/unit and/or counseling patient: Coding Level of Care Code 68431 Subseq Hosp Care Lvl 1 Diagnoses Diverticulitis K57.92
[2022-01-11 06:37] LABS: Hematocrit (blood only) 34.4 % (42-52); Hemoglobin 11.6 g/dL (14.0-18.0); Mean Corpuscular Hemoglobin 30.4 pg (25-34); Mean Corpuscular Hgb Conc 33.7 g/dL (32-36); Mean Corpuscular Volume 90.3 fL (80-100); Mean Platelet Volume 10.6 fL (7.4-10.4); Platelet Count 170 K/uL (130-400); RDW Coefficient of Variation 13.6 % (11.5-14.5); RDW Standard Deviation 44.8 fL (36.4-46.3); Red Blood Count 3.81 M/uL (4.7-6.1); White Blood Count 4.84 K/uL (4.8-10.8)
[2022-01-11 06:59] LABS: BUN Creatinine Ratio 10.9 (10-20); Calcium 8.7 mg/dl (8.5-10.1); Creatinine Clr Calc Pharmacy 63.1 ml/min; Est GFR (African American) 76.2 ml/min; Est GFR (Non-African American) 65.8 ml/min; Magnesium 1.6 mg/dl (1.7-2.4); Phosphorus 2.6 mg/dl (2.5-4.9)
[2022-01-11] MEDS: INSULIN ASPART PER UNIT SC SCH ×4 (08:37→20:51)
[2022-01-11] MEDS: ENALAPRIL MALEATE 5 MG TAB PO SCH ×2 (08:40→20:05)
[2022-01-11] MEDS: DOCUSATE SODIUM 100 MG CAP PO SCH ×2 (08:40→20:05)
[2022-01-11] MEDS: GABAPENTIN 300 MG CAP PO SCH ×3 (08:40→20:05)
[2022-01-11] MEDS: METOPROLOL TARTRATE 50 MG TAB PO SCH ×2 (08:41→20:05)
[2022-01-11] MEDS: FENOFIBRATE NANOCRYSTALLIZED 145 MG TABLET PO SCH (08:41)
[2022-01-11] MEDS: ATORVASTATIN 40 MG TAB PO SCH (08:41)
[2022-01-11] MEDS: CYANOCOBALAMIN (B-12) 500 MCG TABLET PO SCH (08:41)
[2022-01-11] MEDS: PANTOprazole 40 MG TAB PO SCH (08:41)
[2022-01-11] MEDS: CITALOPRAM 40 MG TAB PO SCH (08:41)
[2022-01-11] MEDS: ENOXAPARIN INJ 40 MG/0.4 ML SYR SQ SCH (08:41)
[2022-01-11] MEDS: ASPIRIN 81 MG ECTAB PO SCH (08:41)
[2022-01-11] MEDS: POT PHOSPHATE MONOBASIC W/ SOD TAB PO SCH ×4 (08:56→20:04)
[2022-01-11] MEDS: ADVANCED PROBIOTIC 1250 MG CAPSULE PO SCH (08:56)
[2022-01-11] MEDS: MAGNESIUM SULFATE / D5W 1 GM/100 ML BAG IV SCH ×2 (08:57→12:19)
--- NOTE | 2022-01-11 14:46 | Hospitalist Progress Note ---
Date of Service January 11, 2022 Assessment & Plan (1) Diverticulitis: Plan: 76-year-old male presents with abdominal pain and constipation, found to have diverticulitis. He is being managed for the following: #. Abdominal pain and constipation: #. Diverticulitis Patient presented with lower abdominal pain 3 to 4 days [employer], admitting CTAP suggestive of acute sigmoid diverticulitis without evidence of perforation or abscess. Pt afebrile, WBC wnl. has BM now,, Report LLQ pain improving Pt on low fiber diet and tolerating diet well, continue with Zosyn 01/07, pain management. Continue with bowel regimen, patient with multiple BMs Monitor and replete electrolytes as and when appropriate. DC likely waylon on Oral ATB, appreciate Surgery recs. #. Other chronic medical conditions: CAD status post stent and CABG, depre ssion, HTN, GERD, DM [hold metformin and Ozempic, continue with SSI], hypothyroidism, HLD, cirrhosis of liver Continue with/resume home meds as and when appropriate. #. DVT prophylaxis: lovenox DISPOSITION: Closely monitor in the medical floor. PT, OT prior to discharge. Social service to help with discharge planning. Admission and Anticipated Discharge Date Admission Date: January 07, 2022 Subjective Patient seen and examined at bedside as a follow-up of abdominal pain and constipation, likely diverticulitis. Patient lying in bed, on room air, NAD, no new acute events overnight. Patient had multiple bowel movements over the last 1 day, reports significant improvement in his belly pain. Low back pain at baseline. Patient tolerating diet well. Patient denies any fever/chills/headache/dizziness/chest pain/palpitation/other review of symptoms. Physical Exam Physical Exam: GENERAL: Alert and oriented x3. NAD, on RA. HEENT: No pallor, no icterus. Pupils equal, round and reactive to light. Oral mucosa moist. NECK: No JVD, no neck masses. HEART: S1 and S2 heard. Regular rate and rhythm. No murmur, no gallop. RESPIRATORY SYSTEM: Normal AP diameter. No accessory muscle use. No wheezing, no crackles. ABDOMEN: Soft, bowel sounds present, lower abd tenderness minimal, no distention. CENTRAL NERVOUS SYSTEM: No facial droop. Speech is clear. Obeys simple commands. Moves extremities. EXTREMITIES: No edema, no erythema seen. Results & Data Results & Data ([facility]) Vital Signs (Past 12 Hours) Vital Signs Temp Pulse Resp BP Pulse Ox 01/11/22 14:35 36.5 C 58 L 16 110/68 97 01/11/22 07:17 36.4 C L 60 16 138/77 95
[2022-01-12] MEDS: PIPERACILLIN/TAZOBACTAM 3.375 GM in DEXTROSE 5% 100 ML IV SCH ×2 (01:38→09:38)
[2022-01-12] MEDS: LEVOTHYROXINE SODIUM 25 MCG TABLET PO SCH (05:34)
[2022-01-12 05:55] LABS: Hematocrit (blood only) 35.4 % (42-52)
[2022-01-12] MEDS: ATORVASTATIN 40 MG TAB PO SCH (08:01)
[2022-01-12] MEDS: ADVANCED PROBIOTIC 1250 MG CAPSULE PO SCH (08:02)
[2022-01-12] MEDS: GABAPENTIN 300 MG CAP PO SCH (08:02)
[2022-01-12] MEDS: PANTOprazole 40 MG TAB PO SCH (08:02)
[2022-01-12] MEDS: ASPIRIN 81 MG ECTAB PO SCH (08:02)
[2022-01-12] MEDS: CYANOCOBALAMIN (B-12) 500 MCG TABLET PO SCH (08:03)
[2022-01-12] MEDS: FENOFIBRATE NANOCRYSTALLIZED 145 MG TABLET PO SCH (08:03)
[2022-01-12] MEDS: CITALOPRAM 40 MG TAB PO SCH (08:03)
[2022-01-12] MEDS: ENOXAPARIN INJ 40 MG/0.4 ML SYR SQ SCH (08:04)
[2022-01-12] MEDS: DOCUSATE SODIUM 100 MG CAP PO SCH (08:04)
[2022-01-12] MEDS: METOPROLOL TARTRATE 50 MG TAB PO SCH (08:06)
[2022-01-12] MEDS: INSULIN ASPART PER UNIT SC SCH ×2 (08:22→12:32)
[2022-01-12] MEDS: ENALAPRIL MALEATE 5 MG TAB PO SCH (08:35)
[2022-01-12] MEDS ORDERED: MAGNESIUM OXIDE 400 MG TAB PO SCH (09:00)
--- NOTE | 2022-01-12 10:59 | Discharge Summary ---
Date of Service January 12, 2022 Admission HPI Per Admitting Provider CHIEF COMPLAINT: Abdominal pain and constipation. HISTORY OF PRESENT ILLNESS: This is a 76-year-old male with past medical history significant for type 2 diabetes, hypothyroidism, hyperlipidemia, diabetic polyneuropathy, history of CVA, history of hypertension, history of liver cirrhosis, diverticulosis of colon, irritable bowel syndrome, B12 deficiency, BPH, cervical disk displacement, brachial neuritis, history of thrombocytopenia, depression, primary insomnia, incisional hernia, who presents with abdominal pain and constipation. The patient in the last 3 days is having constipation as well as lower abdominal pain, this is not getting better. Has nausea and one episode of vomiting, which prompted him to come to the ER. He has a history of diverticulitis in the past with CAT scan showing diverticulitis . Denies any fever or chills. Afebrile. No leukocytosis. Currently, resting comfortably and hemodynamically stable. The pain medication helped him, the pain is improved. Denies any chest pain, no shortness of breath, no cough, no headache, no blurred visions, no runny nose, no sore throat. Ambulates okay. ALLERGIES: NIACIN. PAST MEDICAL HISTORY: As mentioned above. PAST SURGICAL HISTORY: Single balloon angioplasty with stent placement, colonoscopy, CABG, EGDs, lumbosacral spinal injections, removal of prostate, removal of salivary stone, tonsillectomy, cataract surgery, lumbar spinal surgery, repair of recurrent incisional hernia, left total shoulder arthroplasty, umbilical hernia repair. MEDICATIONS: The patient is on aspirin 81 mg p.o. daily, atorvastatin 40 mg p.o. daily, citalopram 40 mg p.o. daily, vitamin B12 1000 mcg p.o. daily, enalapril 2.5 mg p.o. b.i.d., fenofibrate 134 mg p.o. daily, gabapentin 300 mg p.o. t.i.d., levothyroxine 25 mcg p.o. daily, metformin 500 mg p.o. b.i.d., metoprolol tartrate 50 mg p.o. b.i.d., Ozempic 0.5 mg subcutaneous weekly, Protonix 40 mg p.o. daily, fiber 0.4 mg p.o. daily. FAMILY HISTORY: Significant for son has cancer; father has diabetes, heart disorder; mother has heart disorder; brother has high cholesterol. SOCIAL HISTORY: . Quit smoking in 2004, smoked 2 packs a day for 40 years. Alcohol occasionally. No drug use. REVIEW OF SYSTEMS: As per HPI. Rest of the review of systems is negative. Admission Exam Per Admitting Provider GENERAL: The patient is of moderate build, not in acute distress. VITAL SIGNS: Temperature 36.6, pulse 97, respiratory rate 20, blood pressure 136/85, oxygen 94% on room air. HEENT: Pupils equal, round and reactive to light. Oral mucosa moist. NECK: No JVD, no neck masses. CARDIOVASCULAR: S1 and S2 heard. Regular rate and rhythm. No murmur, no gallop. RESPIRATORY SYSTEM: Normal AP diameter. No accessory muscle use. No wheezing, no crackles. ABDOMEN: Soft, bowel sounds present. Mild distention, tenderness present in the left quadrant region. No guarding present. CENTRAL NERVOUS SYSTEM: Cranial nerves II-XII grossly intact, nonfocal. EXTREMITIES: No edema, no erythema. Principal Diagnosis Acute sigmoid diverticulitis Discharge Exam GENERAL: Alert and oriented x3. NAD, on RA. HEENT: No pallor, no icterus. Pupils equal, round and reactive to light. Oral mucosa moist. NECK: No JVD, no neck masses. HEART: S1 and S2 heard. Regular rate and rhythm. No murmur, no gallop. RESPIRATORY SYSTEM: Normal AP diameter. No accessory muscle use. No wheezing, no crackles. ABDOMEN: Soft, bowel sounds present, lower abd tendernessnone, no distention. CENTRAL NERVOUS SYSTEM: No facial droop. Speech is clear. Obeys simple commands. Moves extremities. EXTREMITIES: No edema, no erythema seen. Discharge Data Allergies Allergy/AdvReac Type Severity Reaction Status Date / Time niacin Allergy Unknown ITCHY Verified 01/07/22 01:37 SPLOTCHY RASH Consultations 01/07/22 03:11 ED Decision to Admit Stat 01/07/22 08:00 Consult General Surgery Routine Ordered Studies 01/07/22 00:38 CT abd pelvis IV con only Stat Hospital Course (1) Diverticulitis: 76-year-old male presents with abdominal pain and constipation, found to have diverticulitis. He was managed for the following: #. Abdominal pain and constipation: #. 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 Pt afebrile, WBC wnl. has BM now,, Report LLQ pain improving Patient tolerating diet well, having bowel movements, reports improving belly pain, nontender on exam today. Continue with soft diet for few days and then progressed to baseline consistency upon discharge. You will be discharged on Augmentin for 9 more days. Continue with probiotic. You will need follow-up with PCP in a week time upon discharge, follow-up with GI doctor in 2 to 3 months time for colonoscopy evaluation if no colonoscopy has been performed within the previous year. You can use [id number] laxatives for constipation as needed. #. Other chronic medical conditions: CAD status post stent and CABG, depression, HTN, GERD, DM [hold metformin and Ozempic, continue with SSI], hypothyroidism, HLD, cirrhosis of liver Continue with/resume home meds as and when appropriate. #. DVT prophylaxis: lovenox Patient being discharged to home with following instructions at the point of discharge: Follow-up with your primary care physician within a week time. You will be transitioned to oral antibiotic, take antibiotics as prescribed. Take probiotics as prescribed. Continue with soft diet upon discharge for few days and slowly progress to regular diet consistency as tolerated. You can take [id number] laxatives for constipation as needed. Follow-up with GI doctor in 2 to 3 months time upon discharge. You will need colonoscopy evaluation unless it has been performed within the previous year. Take medications as prescribed. Total Time Total Time Spent Total Time Spent (In Minutes): 35 Discharge Plan Discharge Items Patient Disposition: Home - Self-Care Reason For Visit: ABDOMINAL PAIN Discharge Diagnosis: Acute sigmoid diverticulitis Condition on Discharge: Good Activity: Resume your previous activity Non-emergency contact: Primary Care Provider Call non-emergency contact if: you have any medication questions, your symptoms worsen, your pain is not controlled and your temperature is above 101 Follow-up/Referrals: Neo Han MD [Primary Care Provider] - 01/14/22 3:00 pm (Date & Time 01/14/2022 3:00 PM Provider Makenna Vasquez MD Department Family Medicine [facility] ) Diet: Carb Consistent or DM2 Diet Comment: Follow soft diet for few days upon discharge. Addtl Attending Provider Instructions: Follow-up with your primary care physician within a week time. You will be transitioned to oral antibiotic, take antibiotics as prescribed. Take probiotics as prescribed. Continue with soft diet upon discharge for few days and slowly progressed well to regular diet consistency as tolerated. You can take [id number]-brrykyd laxatives for constipation as needed. Follow-up with GI doctor in 2 to 3 months time upon discharge. You will need colonoscopy evaluation unless it has been performed within the previous year. Take medications as prescribed. Pending Studies at Discharge: No Stand-Alone Forms: My [facility] [employer], Smoking Cessation Medications and DC Order Prescriptions: New acetaminophen 325 mg Tablet 650 mg PO Q6H PRN (Reason: fever or pain) Qty: 60 RF: 0 docusate sodium 100 mg Capsule 100 mg PO BID PRN (Reason: constipation) Qty: 60 RF: 0 magnesium oxide 400 mg (241.3 mg magnesium) Tablet 400 mg PO QAM Qty: 30 RF: 0 amoxicillin-pot clavulanate 875-125 mg tablet 1 tab PO BID 9 Days Qty: 18 RF: 0 Advanced Probiotic 625 mg (10 billion cell) Capsule 2 cap PO DAILY 10 Days Qty: 20 RF: 0 Continued aspirin [Aspirin Low Dose] 81 mg tablet,delayed release (DR/EC) 81 mg PO DAILY RF: 0 atorvastatin [Lipitor] 40 mg tablet 40 mg PO DAILY RF: 0 citalopram [Celexa] 40 mg tablet 40 mg PO DAILY RF: 0 enalapril maleate [Vasotec] 2.5 mg tablet 2.5 mg PO BID RF: 0 levothyroxine 25 mcg capsule 25 mcg PO DAILY RF: 0 metformin 500 mg tablet 500 mg PO BID RF: 0 gabapentin 300 mg capsule 300 mg PO TID Qty: 90 RF: 2 cyanocobalamin (vitamin B-12) 1,000 mcg Tablet 1,000 mcg PO DAILY RF: 0 sildenafil [Viagra] 100 mg Tablet 100 mg PO DIRECTED PRN (Reason: Erectile Dysfunction) RF: 0 fenofibrate micronized 134 mg capsule 134 mg PO DAILY RF: 0 metoprolol tartrate 50 mg tablet 50 mg PO BID RF: 0 Ozempic 0.25 mg or 0.5 mg(2 mg/1.5 mL) pen injector 0.25 mg SUBCUT WK RF: 0 pantoprazole 40 mg Tablet,Delayed Release (Dr/Ec) 40 mg PO QAM Qty: 30 RF: 0 psyllium husk [Fiber (psyllium husk)] 0.4 gram Capsule 0.4 g PO DAILY Qty: 30 RF: 0 Discharge Orders: Discharge Order (Routine); Ordered 01/12/22 Ordered By: Kelly Jaramillo/Other Patient Handouts: Managing Type 2 Diabetes Admission Data Admit Date/Time: 01/07/22 04:13 Attending Provider: Kelly Dowling Admit Provider: Froylan John Primary Care Provider: Neo Han Other Providers: Zi Laws ; Jh Madrid ; Diamond Roy ; Desiree Brush ; Marcos Marshall ; Julian Spears ; Kesha Morales ; Kitty Gerardo ; Wisam Holt Jr ; Itz Pedraza ; Sandoval Camacho ; Mily Hernandez ; Froylan John ; [facility]
== END 2022-01-12 13:40 | disposition home or self-care (01) | DRG 392 ==
LOC: ED 00:05 → 3W 04:13

== ENCOUNTER 2022-12-31 19:01 | Inpatient (IN) ==
--- NOTE | 2022-12-31 19:48 | Emergency Department Note ---
History of Present Illness General Chief complaint: Cardiac Assessment Stated complaint: REF BY [facility] Time Seen by Provider: 12/31/22 19:30 Source: patient, RN notes reviewed and old records reviewed (I have reviewed the notes from the outpatient golf instructor) Mode of arrival: ambulatory Limitations: no limitations History of Present Illness This patient is a 77-year-old male who was sent over from Dr. Cohn's office a fter an echo done here yesterday. He had a routine echo's yesterday and there was read by Dr. Cohn this afternoon and they were concerned that he may have had a heart attack and there was a blood clot in his heart according to the patient. He feels okay at present over the last month he has felt tired had intermittent chest pain and shortness of breath primarily with exertion. He feels okay at rest right now. No fall or trauma. He has had decreased energy. Home Medications Medication Instructions Recorded Confirmed Type aspirin 81 mg tablet,delayed 81 mg PO DAILY 12/18/20 12/31/22 History release (Noé Low Dose Aspirin) atorvastatin 40 mg tablet (Lipitor) 40 mg PO DAILY 12/18/20 12/31/22 History citalopram 40 mg tablet (Celexa) 40 mg PO DAILY 12/18/20 12/31/22 History enalapril maleate 2.5 mg tablet 2.5 mg PO BID 12/18/20 12/31/22 History (Vasotec) levothyroxine 25 mcg capsule 25 mcg PO DAILY 12/18/20 12/31/22 History cyanocobalamin (vitamin B-12) 1,000 mcg PO DAILY 09/23/21 12/31/22 History 1,000 mcg tablet fenofibrate micronized 134 mg 134 mg PO DAILY 09/23/21 12/31/22 History capsule semaglutide 0.25 mg or 0.5 mg (2 0.25 mg subcut WK 09/23/21 12/31/22 History mg/1.5 mL) subcutaneous pen injector (Ozempic) sildenafil 100 mg tablet (Viagra) 100 mg PO DIRECTED PRN Erectile 09/23/21 12/31/22 History Dysfunction pantoprazole 40 mg tablet,delayed 40 mg PO QAM #30 tabs 12/08/21 03/16/23 Rx release acetaminophen 325 mg tablet 650 mg PO Q6H PRN fever or pain 01/12/22 12/31/22 Rx #60 tabs psyllium husk 0.4 gram capsule 0.4 g PO DAILY #30 caps 01/12/22 12/31/22 Rx (Fiber (psyllium husk)) docusate sodium 100 mg capsule 100 mg PO BID 12/31/22 12/31/22 History metformin 1,000 mg tablet 2,000 mg PO DAILY 12/31/22 12/31/22 History metoprolol tartrate 50 mg tablet 50 mg PO BID 12/31/22 12/31/22 History trazodone 50 mg tablet 50 mg PO HS 12/31/22 12/31/22 History Allergies Allergy/AdvReac Type Severity Reaction Status Date / Time niacin Allergy Unknown ITCHY Verified 12/31/22 21:09 SPLOTCHY RASH Past Med/Surg History Medical History CAD (coronary artery disease) 1994-CABG x2 2004-MAYLIN to circumflex Cervical disc disorder at C5-C6 level with radiculopathy Chronic SI joint pain DDD (degenerative disc disease), lumbar Diabetes Foraminal stenosis of lumbar region L5-S1 Heart disease High blood pressure High cholesterol Lumbar back pain with radiculopathy affecting left lower extremity Lumbar radicular pain Rupture of hip abductor tendon Trochanteric bursitis of both hips Surgical History H/O heart artery stent H/O heart bypass surgery H/O laminectomy H/O shoulder replacement S/P hernia surgery Family History Other Diabetes Heart disease Social History Smoking Status: Former smoker Cigarettes Per Day: 2 packs; quit 20 yrs ago; Second Hand Exposure: No; Hx Alcohol Use: No Hx Substance Use: No Preferred Language: Slovenian Communication Ability: Effective Brake Reliner Required: No Beliefs That Will Affect Care: None marital status: Current Living Situation: Spouse current occupational status: retired How many Children do You have: 2 Feels Safe at Home: Yes Assistive Devices: Glasses Review of Systems A total of 10 systems reviewed and were otherwise negative Physical Exam Vital Signs Vital Signs - 24 hr 12/31/22 19:13 12/31/22 19:39 12/31/22 19:40 Temperature 36.7 C Temperature Source Temporal Artery Scan Pulse Rate 74 68 73 Respiratory Rate 20 20 Respiratory Effort / Characteristics Non-Labored Spontaneous Respiratory Depth Normal Blood Pressure 127/80 Blood Pressure Mean 95 Pulse Oximetry 96 94 Oxygen Delivery Method Room Air Room Air Sepsis Recent Fever Within 48 Hours No Sepsis New/Unexplained Change in Mental Status N/A Sepsis Action Taken by Nursing No Action Required General: Well developed well nourished older male who appears in no acute distress, breathing comfortably on room air. Normal speech HEENT: Normal cephalic atraumatic. Pupils are equal round and reactive to light. Extraocular movements are intact. Oropharynx is pink with moist mucous membranes. No swelling of the mouth lips or tongue. Neck: Supple with a midline trachea. No meningeal signs or stiffness, no JVD or bruits. No Stridor. Chest: Clear to auscultation bilaterally. No wheezes or rhonchi. No increased work of breathing. Heart: Regular rate and rhythm without murmurs or gallops. Abdomen: Soft nontender, nondistended without rebound guarding or rigidity. Extremities: No cyanosis clubbing or edema. No calf tenderness or assymetry Spine/Back. Non tender to palpation. No CVA tenderness Skin: Good turgor without rashes. Neurologic exam: Cranial nerves two through 12 are intact. Motor and sensation are intact and symmetrical throughout. Course Administered Medications Heparin Sodium/Dextrose (Heparin Sodium/Dextrose) 25,000 units in 500 mls @ 28 mls/hr IV .[id number] [facility]; Protocol Stop: 01/30/23 20:59 Last Admin: 12/31/22 20:56 Dose: 1,400 units/hr, 28 mls/hr Documented By: MARILUZ Co-signed By: QGV Insulin Aspart (Insulin Aspart Per Unit) 0 units SC Q6 [facility] Stop: 01/31/23 00:00 Last Admin: 12/31/22 23:40 Dose: 2 units Documented By: GUERDA Co-signed By: SB Metoprolol Tartrate (Metoprolol Tartrate 50 Mg Tab) 50 mg PO BID [facility] Stop: 01/30/23 23:10 Last Admin: 01/01/23 00:29 Dose: 50 mg Documented By: KJS Discontinued Medications Heparin Sodium/Dextrose (Heparin Iv Adult Wt-Based Standard *No* Bolus Protocol) 1 each IV ONE ONE; Protocol Stop: 12/31/22 20:41 Last Admin: 12/31/22 21:22 Dose: Not Given Documented By: QGV Medical Decision Making Differential Diagnosis Acute coronary syndrome, coronary artery disease, RI, atrial thrombus, intracardiac thrombus, CHF, COVID, electrolyte or metabolic abnormality,infection Medical Records Attestation: I reviewed the patient's medical records. Home Medications Current Medication List: was personally reviewed by me Laboratory Data Attestation: I reviewed the patient's lab results. 12/31/22 19:40 12/31/22 19:40 Lab Results 12/31/22 12/31/22 12/31/22 Range/Units 19:40 19:40 19:40 WBC 5.09 (4.8-10.8) K/ul RBC 4.08 L (4.70-6.10) M/uL Hgb 12.7 L (14.0-18.0) g/dl Hct 36.3 L (42.0-52.0) % MCV 89.0 (80.0-100.0) fL MCH 31.1 (25.0-34.0) pg MCHC 35.0 (32.0-36.0) g/dL RDW Std Deviation 44.0 (36.4-46.3) fL RDW Coeff of Guera 13.5 (11.5-14.5) % Plt Count 113 L (130-400) K/uL MPV 11.9 (9.4-12.4) fL Immature Gran % (Auto) 0.2 % Neut % (Auto) 59.5 % Lymph % (Auto) 28.5 % [place] % (Auto) 6.7 % Eos % (Auto) 3.7 % Baso % (Auto) 1.4 % Neut # (Auto) 3.03 (1.40-6.50) K/uL Lymph # (Auto) 1.45 (1.2-3.4) K/uL [place] # (Auto) 0.34 (0.11-0.59) K/uL Eos # (Auto) 0.19 (0-0.50) K/uL Baso # (Auto) 0.07 (0-0.2) K/uL Immature Gran # (Auto) 0.01 (0.01-0.20) K/uL PT 12.1 H (9.0-12.0) Seconds INR 1.1 (0.9-1.1) APTT 25.9 (21.0-31.0) Seconds PTT Ratio 0.9 Sodium 141 (136-145) mmol/L Potassium 3.8 (3.5-5.1) mmol/L Chloride 110 H (98-107) mmol/L Carbon Dioxide 23 (21-32) mmol/L Anion Gap 8 (3-11) BUN 24 H (6-23) mg/dl Creatinine 0.99 (0.6-1.4) mg/dl Est Cr Clr Drug Dosing Not Reportable Est GFR ( Amer) 86.0 ml/min Est GFR (Non-Af Amer) 74.2 ml/min BUN/Creatinine Ratio 24.2 H (10-20) Glucose 171 H (70-99(Fasting)) mg/dl Calcium 9.1 (8.5-10.1) mg/dl Total Bilirubin 0.5 (0.2-1.0) mg/dl AST 13 (13-39) U/L ALT 10 (7-52) U/L Alkaline Phosphatase 59 (34-104) U/L Troponin I High Sens 9.8 (0-20) pg/ml Total Protein 6.7 (6.0-8.3) gm/dl Albumin 4.1 (3.4-5.0) gm/dl Globulin 2.6 (2.5-4.0) gm/dl Albumin/Globulin Ratio 1.6 (0.9-2) SARS-CoV-2, RNA, NAAT (NEGATIVE) 12/31/22 12/31/22 Range/Units 19:45 21:19 WBC (4.8-10.8) K/ul RBC (4.70-6.10) M/uL Hgb (14.0-18.0) g/dl Hct (42.0-52.0) % MCV (80.0-100.0) fL MCH (25.0-34.0) pg MCHC (32.0-36.0) g/dL RDW Std Deviation (36.4-46.3) fL RDW Coeff of Guera (11.5-14.5) % Plt Count (130-400) K/uL MPV (9.4-12.4) fL Immature Gran % (Auto) % Neut % (Auto) % Lymph % (Auto) % [place] % (Auto) % Eos % (Auto) % Baso % (Auto) % Neut # (Auto) (1.40-6.50) K/uL Lymph # (Auto) (1.2-3.4) K/uL [place] # (Auto) (0.11-0.59) K/uL Eos # (Auto) (0-0.50) K/uL Baso # (Auto) (0-0.2) K/uL Immature Gran # (Auto) (0.01-0.20) K/uL PT (9.0-12.0) Seconds INR (0.9-1.1) APTT (21.0-31.0) Seconds PTT Ratio Sodium (136-145) mmol/L Potassium (3.5-5.1) mmol/L Chloride (98-107) mmol/L Carbon Dioxide (21-32) mmol/L Anion Gap (3-11) BUN (6-23) mg/dl Creatinine (0.6-1.4) mg/dl Est Cr Clr Drug Dosing Est GFR ( Amer) ml/min Est GFR (Non-Af Amer) ml/min BUN/Creatinine Ratio (10-20) Glucose (70-99(Fasting)) mg/dl Calcium (8.5-10.1) mg/dl Total Bilirubin (0.2-1.0) mg/dl AST (13-39) U/L ALT (7-52) U/L Alkaline Phosphatase (34-104) U/L Troponin I High Sens 12.7 (0-20) pg/ml Total Protein (6.0-8.3) gm/dl Albumin (3.4-5.0) gm/dl Globulin (2.5-4.0) gm/dl Albumin/Globulin Ratio (0.9-2) SARS-CoV-2, RNA, NAAT NEGATIVE (NEGATIVE) Imaging Data Attestation: I personally reviewed and interpreted this imaging study as fo llows: My Impression: Chest x-raypostsurgical changes but no acute infiltrate, failure, pneumothorax seen Radiologist's Impression: Chest X-Ray 12/31/22 19:16 XR chest 1V portable CLINICAL HISTORY: Chest pain, nonspecific COMPARISON STUDY: Chest radiograph September 23, 2021. FINDINGS: Left shoulder arthroplasty, median sternotomy wires and mediastinal surgical clips are incidentally noted. Cardiomegaly is unchanged. There is no evidence for pulmonary edema. No consolidation is identified. There is no pneumothorax or pleural effusion. IMPRESSION: No acute cardiopulmonary findings. No change in appearance of the chest. ACT 112: Negative or not required by law. Electronically signed by: Wilfredo Ruiz M.D. 12/31/2022 8:29 PM ECG Data Attestation: I personally reviewed and interpreted this ECG as follows: Indication: + chest pain Rate (beats per minute): 69 Rhythm: + normal sinus ECG Intervals/blocks: + IVCD (Nonspecific interventricular block. QRS is increased compared to last), + Normal QT and + Normal FL ECG [place]: + Normal ECG ST segments: + Nonspecific ST abnormalities ECG Findings: + PVCs Comparison ECG Date: from (01/07/22) Change: the following changes noted (QRS is increased. PVCs are now present) Blood Pressure Blood Pressure Findings: Normal blood pressure MDM Narrative This patient comes in as described above. He was placed on a front desk monitor in room C12. He has no symptoms at present but was sent over after having an abnormal echo with concerns for recent RI with intracardiac thrombus. He has no blood thinner usage he has had no stomach issues no blood or melena stool no recent trauma or surgery. IV access was established multiple blood testing was obtained. chest x-ray, EKG were obtained, he was COVID tested. COVID testing was negative. EKG shows no definite ischemic changes troponin thus far is unremarkable. Chest x-ray does not show congestive heart failure, pneumonia, pneumothorax has no significant acrylate or metabolic abnormalities. I do think he needs to be admitted for further cardiac evaluation likely anticoagulation given the echo report of intracardiac thrombus. I did discuss case with Dr. John, who is going to see the patient in the ER and determine which anticoagulation regimen he wants him on. He will be further admitted for treatment and cardiac evaluation. Continuous cardiac monitoring: Orders placed in EMR for continuous cardiac monitoring: Upon my evaluation he was noted to be in normal sinus rhythm with a rate of 70. Impression & Plan Chest pain, H/O heart artery stent, Apical mural thrombus, Lab test negative for COVID-19 virus Discharge Plan Visit Data Chief Complaint: Cardiac Assessment Stated Complaint: REF BY [facility] IN [facility] ED Provider: Iftikhar Mclean Discharge Problem: Chest pain, H/O heart artery stent, Apical mural thrombus, Lab test negative for COVID-19 virus Patient Disposition: Admitted As Inpatient Discharge Instructions Interventions: ED Discharge Assessment Last Done: 12/31/22 22:28
[2022-12-31 20:16] LABS: Basophils # (auto) 0.07 K/uL (0-0.2); Basophils % (auto) 1.4 %; Eosinophils # (auto) 0.19 K/uL (0-0.50); Eosinophils % (auto) 3.7 %; Hematocrit (blood only) 36.3 % (42.0-52.0); Hemoglobin 12.7 g/dl (14.0-18.0); Immature Granulocytes # (auto) 0.01 K/uL (0.01-0.20); Immature Granulocytes % (auto) 0.2 %; Lymphocytes # (auto) 1.45 K/uL (1.2-3.4); Lymphocytes % (auto) 28.5 %; Mean Corpuscular Hemoglobin 31.1 pg (25.0-34.0); Mean Platelet Volume 11.9 fL (9.4-12.4); Monocytes # (auto) 0.34 K/uL (0.11-0.59); Monocytes % (auto) 6.7 %; Neutrophils # (auto) 3.03 K/uL (1.40-6.50); Neutrophils % (auto) 59.5 %; Platelet Count 113 K/uL (130-400); RDW Coefficient of Variation 13.5 % (11.5-14.5); Red Blood Count 4.08 M/uL (4.70-6.10); White Blood Count 5.09 K/ul (4.8-10.8)
--- NOTE | 2022-12-31 20:30 | XRay Report ---
XR chest 1V portable CLINICAL HISTORY: Chest pain, nonspecific COMPARISON STUDY: Chest radiograph September 23, 2021. FINDINGS: Left shoulder arthroplasty, median sternotomy wires and mediastinal surgical clips are inci dentally noted. Cardiomegaly is unchanged. There is no evidence for pulmonary edema. No consolidation is identified. There is no pneumothorax or pleural effusion. IMPRESSION: No acute cardiopulmonary findings. No change in appearance of the chest. ACT 112: Negative or not required by law. Electronically signed by: Wilfredo Ruiz M.D. 12/31/2022 8:29 PM
[2022-12-31 20:33] LABS: Alanine Aminotransferase 10 U/L (7-52); Albumin Globulin Ratio 1.6 (0.9-2); Albumin Level 4.1 gm/dl (3.4-5.0); Alkaline Phosphatase 59 U/L (34-104); Anion Gap 8 (3-11); Aspartate Aminotransferase 13 U/L (13-39); BUN Creatinine Ratio 24.2 (10-20); Bilirubin,Total 0.5 mg/dl (0.2-1.0); Blood Urea Nitrogen 24 mg/dl (6-23); Calcium 9.1 mg/dl (8.5-10.1); Carbon Dioxide 23 mmol/L (21-32); Chloride 110 mmol/L (98-107); Est GFR (Non-African American) 74.2 ml/min; Globulin 2.6 gm/dl (2.5-4.0); Glucose 171 mg/dl (70-99(Fasting)); Potassium 3.8 mmol/L (3.5-5.1); Sodium 141 mmol/L (136-145); Total Protein 6.7 gm/dl (6.0-8.3)
[2022-12-31 20:40] LABS: Troponin I High Sensitivity 9.8 pg/ml (0-20)
[2022-12-31] MEDS ORDERED: Heparin IV Adult Wt-Based Standard *NO* Bolus Protocol IV ONE (20:40)
[2022-12-31 20:45] LABS: INR 1.1 (0.9-1.1); Partial Thromboplastin Ratio 0.9; Partial Thromboplastin Time 25.9 Seconds (21.0-31.0); Prothrombin Time 12.1 Seconds (9.0-12.0)
[2022-12-31] MEDS: HEPARIN SODIUM/DEXTROSE 25,000 UNITS/500 ML BAG IV SCH (20:56)
[2022-12-31] MEDS ORDERED: GLUCOSE 10 TAB/TUBE PO PRN (23:11)
[2022-12-31] MEDS ORDERED: GLUCOSE 40% GEL 15 GM TUBE PO PRN (23:11)
[2022-12-31] MEDS ORDERED: DEXTROSE 50% 50 ML SYRINGE IV PRN (23:11)
[2022-12-31] MEDS ORDERED: NITROGLYCERIN SL 0.4 MG/TAB TAB SL PRN (23:11)
[2022-12-31] MEDS ORDERED: ACETAMINOPHEN 325 MG TAB PO PRN (23:11)
[2022-12-31] MEDS ORDERED: POLYETHYLENE (MIRALAX) 17 GM PACK PO PRN (23:11)
[2022-12-31] MEDS ORDERED: MoRPHine SULFATE 2 MG/ML CARP IV PRN (23:11)
[2022-12-31] MEDS ORDERED: PHARMACY GLYCEMIC MGMT CONSULT PRN (23:11)
[2022-12-31] MEDS ORDERED: CARBOHYDRATES FOR HYPOGLYCEMIA PO PRN (23:11)
[2022-12-31] MEDS ORDERED: GLUCAGON FOR INJ 1 MG VIAL SQ PRN (23:11)
--- NOTE | 2022-12-31 23:18 | History and Physical Report ---
DATE OF ADMISSION: 12/31/2022. CHIEF COMPLAINT: Chest pain on exertion and dyspnea on exertion. HISTORY OF PRESENT ILLNESS: A 77-year-old male with past medical history significant for type 2 diabetes, hypothyroidism, hyperlipidemia, polyneuropathy, history of CVA, hypertension, history of cirrhosis of liver, history of diverticulitis of colon, irritable bowel syndrome with both constipation and diarrhea, B12 deficiency, acquired cyst of kidney, BPH, cervical spondylosis, history of brachial neuritis, depression, primary insomnia, history of incisional hernia without obstruction or gangrene was sent in by Cardiology office because of abnormal echo. The patient says for the last 2 weeks, he is having chest pains on and off, mostly with exertions, walking short distance making chest pains and resting relieves the pain, also getting short of breath with exertion, and he had a routine 2D echo yesterday and results showed wall motion abnormalities and left ventricular apical thrombus and Cardiology advised him to come to the hospital for anticoagulation and possible cardiac catheterization. The patient currently started on IV heparin, resting comfortably, hemodynamically stable, currently some chest pressure, but not bad, no shortness of breath. He says he has had mild headaches once in a while and while walking he gets some dizziness. Denies any blurred vision. Somewhat hard of hearing, no runny nose, no sore throat. No cough. Appetite is okay. No difficulty swallowing. No nausea, no abdominal pain. Denies any blood in stools or black stools. Denies any hematuria, no swelling in the legs. no orthopnea. ALLERGIES: NIACIN. PAST MEDICAL HISTORY: As mentioned above. PAST SURGICAL HISTORY: Balloon angioplasty with stent in 2004, colonoscopy, multiple; cardiac bypass surgery in 1994 x 2, EGDs, injection of lumbosacral spine, TURP procedure, removal of salivary stone simple on the right submaxillary gland, tonsillectomy, cataract surgery, lumbar spine surgery, ventral hernia repair, repair of recurrent incisional hernia, left reverse total shoulder arthroplasty, umbilical hernia repair. MEDICATIONS: The patient is on Tylenol 650 mg p.o. q. 6 hours p.r.n., aspirin 81 mg p.o. daily, atorvastatin 40 mg p.o. daily, citalopram 40 mg p.o. daily, vitamin B12 1000 mcg p.o. daily, Colace 100 mg p.o. b.i.d., enalapril 2.5 mg p.o. b.i.d., fenofibrate micronized 134 mg p.o. daily, levothyroxine 25 mcg p.o. daily, metformin 2000 mg p.o. daily, metoprolol tartrate 50 mg p.o. b.i.d., Ozempic 0.25 mg subcutaneous weekly, Protonix 40 mg p.o. a.m., psyllium husk 0.4 g p.o. daily, Viagra p.r.n., trazodone 50 mg p.o. at bedtime. FAMILY HISTORY: Significant for maternal grandmother had breast cancer, son has cancer; father has diabetes, heart disorder; mother has pacemaker, brother has high cholesterol. SOCIAL HISTORY: Former smoker, quit in 2004, smoked 2 packs a day for 40 years. Alcohol occasional beer. No drug use. REVIEW OF SYSTEMS: As per HPI. Rest of the review of systems is negative. PHYSICAL EXAMINATION: GENERAL: The patient is of moderate build, not in acute distress. VITAL SIGNS: Temperature 36.7, pulse 73, respiratory rate 20, blood pressure 127/80, oxygen 94% on room air. HEENT: Pupils equal, round and reactive to light. Oral mucosa moist. NECK: No JVD, no neck masses. CARDIOVASCULAR: S1 and S2 heard. Regular rate and rhythm. No murmur, no gallop. RESPIRATORY SYSTEM: Normal AP diameter. No accessory muscle use. No wheezing, no crackles. ABDOMEN: Soft. Bowel sounds present. Nontender, no distention. CENTRAL NERVOUS SYSTEM: Cranial nerves II through XII grossly intact, nonfocal. EXTREMITIES: No edema, no erythema seen. LABORATORY DATA: WBC 5.09, hemoglobin 12.7, hematocrit 36.3, platelets 113. PT 12.1, INR 1.1, APTT 25.9. Sodium 141, potassium 3.8, chloride 110, CO2 of 23, BUN 24, creatinine 0.9, serum glucose 171, calcium 9.1, total bilirubin 0.5, AST 13, ALT 10, alkaline phosphatase 59. Troponin I high sensitivity initially was 9.8. Repeat pending. SARS-CoV-2 rapid test negative. IMAGING DATA: Chest x-ray, no acute findings. EKG: Sinus rhythm with frequent PVCs, rate of 69, left axis deviation, nonspecific intraventricular conduction block, QTc of 458. ASSESSMENT AND PLAN: This is a 77-year-old male who was sent by Cardiology office because of outpatient echo showing apical thrombus and also wall motion abnormalities. 1. The patient has chest pain on exertion and shortness of breath on exertion: Echo done yesterday showing apical thrombus, EF of 40% to 45%. Left ventricular apex is akinetic. Left ventricular septum and basal inferior wall is hypokinetic. Left ventricle thrombus is small. The patient has been started on IV heparin. Initial troponin is negative. Follow serial troponins. Follow repeat EKG. Currently, asymptomatic. Resting comfortably, hemodynamically stable. Monitor in the tele floor, n.p.o. Consult Cardiology for possible cardiac catheterization in a.m. . 2. Systolic congestive heart failure, new finding: Currently, not in volume overload. The patient on enalapril and metoprolol, which will be continued with holding parameters. 3. History of coronary artery disease, status post coronary artery bypass graft, status post stent: Continue his aspirin, statin, beta blockers. 4. Hypertension: Continue metoprolol and enalapril. We will monitor his blood pressure. 5. Hyperlipidemia: Continue statin. 6. History of cerebrovascular accident: On aspirin and statin. 7. History of depression: Citalopram. 8. History of insomnia: On trazodone. 9. Diabetes: Will hold his home medication. Place on insulin sliding scale. Follow the blood sugars, follow HbA1c levels. 10. Gastroesophageal reflux disease: On Protonix. 11. Deep venous thrombosis prophylaxis: Placed on IV heparin. DISPOSITION: Closely monitor in tele floor. Level 1 full code. Expect to discharge home and follow with family doctor. Job ID: [id number] [facility]
[2022-12-31] MEDS: INSULIN ASPART PER UNIT CHARGE SC SCH (23:40)
[2023-01-01] MEDS: METOPROLOL TARTRATE 50 MG TAB PO SCH ×3 (00:29→21:15)
[2023-01-01 03:14] LABS: BUN Creatinine Ratio 24.5 (10-20); Calcium 8.5 mg/dl (8.5-10.1); Creatinine Clr Calc Pharmacy 72.4 ml/min; Est GFR (African American) 91.6 ml/min; Magnesium 1.5 mg/dl (1.7-2.4); Potassium 3.7 mmol/L (3.5-5.1)
[2023-01-01 03:32] LABS: Basophils # (auto) 0.07 K/uL (0-0.2); Basophils % (auto) 1.4 %; Echinocytes 2+; Eosinophils # (auto) 0.24 K/uL (0-0.50); Eosinophils % (auto) 4.9 %; Hematocrit (blood only) 35.6 % (42.0-52.0); Hemoglobin 12.2 g/dl (14.0-18.0); Immature Granulocytes # (auto) 0.01 K/uL (0.01-0.20); Immature Granulocytes % (auto) 0.2 %; Lymphocytes # (auto) 1.97 K/uL (1.2-3.4); Lymphocytes % (auto) 39.9 %; Mean Corpuscular Hemoglobin 30.7 pg (25.0-34.0); Mean Corpuscular Hgb Conc 34.3 g/dL (32.0-36.0); Mean Corpuscular Volume 89.4 fL (80.0-100.0); Mean Platelet Volume 11.8 fL (9.4-12.4); Monocytes # (auto) 0.39 K/uL (0.11-0.59); Monocytes % (auto) 7.9 %; Neutrophils # (auto) 2.26 K/uL (1.40-6.50); Neutrophils % (auto) 45.7 %; Platelet Count 94 K/uL (130-400); Platelet Estimate Decreased (Normal); RDW Coefficient of Variation 13.4 % (11.5-14.5); Red Blood Count 3.98 M/uL (4.70-6.10); White Blood Count 4.94 K/ul (4.8-10.8)
[2023-01-01] MEDS: INSULIN ASPART PER UNIT CHARGE SC SCH ×4 (05:29→21:15)
[2023-01-01] MEDS: LEVOTHYROXINE SODIUM 25 MCG TABLET PO SCH (06:06)
[2023-01-01 07:47] LABS: Estimated Average Glucose 123 mg/dl; Hemoglobin A1C 5.9 % (4.5-5.6)
[2023-01-01] MEDS: MAGNESIUM SULFATE / D5W 1 GM/100 ML BAG IV SCH ×2 (07:52→09:41)
[2023-01-01] MEDS: ATORVASTATIN 40 MG TAB PO SCH (08:49)
[2023-01-01] MEDS: ENALAPRIL MALEATE 5 MG TAB PO SCH ×2 (08:49→21:14)
[2023-01-01] MEDS: CYANOCOBALAMIN (B-12) 500 MCG TABLET PO SCH (08:49)
[2023-01-01] MEDS: ASPIRIN 81 MG ECTAB PO SCH (08:49)
[2023-01-01] MEDS: CITALOPRAM 40 MG TAB PO SCH (08:49)
[2023-01-01] MEDS: FENOFIBRATE NANOCRYSTALLIZED 145 MG TABLET PO SCH (08:49)
[2023-01-01] MEDS: DOCUSATE SODIUM 100 MG CAP PO SCH ×2 (08:49→21:15)
[2023-01-01] MEDS: PANTOprazole 40 MG TAB PO SCH (08:50)
[2023-01-01] MEDS ORDERED: NITROGLYCERIN 2% OINTMENT 30GM TUBE EXT ONE (09:46)
--- NOTE | 2023-01-01 10:16 | Cardiology Consultation ---
Date of Consultation January 01, 2023 Assessment & Plan (1) Non-ST elevation (NSTEMI) myocardial infarction: (2) Apical mural thrombus: (3) Ischemic cardiomyopathy: (4) CAD (coronary artery disease): Plan Patient treated with 1 sublingual nitroglycerin and topical nitrates at bedside. Chest discomfort improved mildly. Nausea unchanged. Repeat ECG without ST elevation. Lateral T wave inversions noted. Recommend cardiac catheterization for further evaluation. Risk, benefits, alternatives to procedure discussed. Patient will be taken urgently to the cardiac catheterization laboratory for procedure. Further recommendations pending result. 55 minutes critical care time spent evaluating patient, reviewing data, and coordinating care. History of Present Illness Reason for Consultation: Left ventricular thrombus, chest pain, abnormal echocardiogram Requesting Physician: Dr. John Attending Physician: Mya Cummings MD History of Present Illness 79-year-old patient presents to the emergency department with nearly 6 weeks of waxing and waning chest discomfort with associated nausea. Patient reports chest discomfort and shortness of breath previously only associated with exertion, however, over the past few weeks she has noted intermittent pressure and heaviness on nearly a daily basis. Discomfort can last up to 1 hour. He has not used any sublingual nitroglycerin. Patient seen examined at the bedside. Reporting 5/10 chest pressure with associated nausea. Symptoms reminiscent of prior myocardial infarction. Repeat ECG demonstrating incomplete left bundle branch block. High-sensitivity troponin negative x2 on admission. Reports intermittent orthopnea without PND over the past 5 weeks. Chest x-ray without evidence of pulmonary edema. Recent echocardiogram results listed below demonstrating apical akinesis with LV thrombus, inferior hypokinesis, ejection fraction 40-44%. Past medical history (copied from [facility] medical record): 1.Coronary artery disease, status post CABG x2 in 1994 with a LOPEZ to the LAD and vein graft to the RCA. 2.Followup cardiac catheterization in 2004 showing patent grafts and receiving a drug-eluting stent to the circumflex. 3.Chronic back pain. 4.History of TIA. 5.Hypertension. 6.Hyperlipidemia. 7.Remote tobacco use history. Allergies Allergy/AdvReac Type Severity Reaction Status Date / Time niacin Allergy Unknown ITCHY Verified 12/31/22 21:09 SPLOTCHY RASH Home Medications Medication Instructions Recorded Confirmed Type aspirin 81 mg tablet,delayed 81 mg PO DAILY 12/18/20 12/31/22 History release (Noé Low Dose Aspirin) atorvastatin 40 mg tablet (Lipitor) 40 mg PO DAILY 12/18/20 12/31/22 History citalopram 40 mg tablet (Celexa) 40 mg PO DAILY 12/18/20 12/31/22 History enalapril maleate 2.5 mg tablet 2.5 mg PO BID 12/18/20 12/31/22 History (Vasotec) levothyroxine 25 mcg capsule 25 mcg PO DAILY 12/18/20 12/31/22 History cyanocobalamin (vitamin B-12) 1,000 mcg PO DAILY 09/23/21 12/31/22 History 1,000 mcg tablet fenofibrate micronized 134 mg 134 mg PO DAILY 09/23/21 12/31/22 History capsule semaglutide 0.25 mg or 0.5 mg (2 0.25 mg subcut WK 09/23/21 12/31/22 History mg/1.5 mL) subcutaneous pen injector ([employer]) sildenafil 100 mg tablet (Viagra) 100 mg PO DIRECTED PRN Erectile 09/23/21 12/31/22 History Dysfunction pantoprazole 40 mg tablet,delayed 40 mg PO QAM #30 tabs 09/24/21 12/31/22 Rx release acetaminophen 325 mg tablet 650 mg PO Q6H PRN fever or pain 01/12/22 12/31/22 Rx #60 tabs psyllium husk 0.4 gram capsule 0.4 g PO DAILY #30 caps 01/12/22 12/31/22 Rx (Fiber (psyllium husk)) docusate sodium 100 mg capsule 100 mg PO BID 12/31/22 12/31/22 History metformin 1,000 mg tablet 2,000 mg PO DAILY 12/31/22 12/31/22 History metoprolol tartrate 50 mg tablet 50 mg PO BID 12/31/22 12/31/22 History trazodone 50 mg tablet 50 mg PO HS 12/31/22 12/31/22 History Patient History Medical History CAD (coronary artery disease) 1994-CABG x2 2005-MAYLIN to circumflex Cervical disc disorder at C5-C6 level with radiculopathy Chronic SI joint pain DDD (degenerative disc disease), lumbar Diabetes Foraminal stenosis of lumbar region L5-S1 Heart disease High blood pressure High cholesterol Lumbar back pain with radiculopathy affecting left lower extremity Lumbar radicular pain Rupture of hip abductor tendon Trochanteric bursitis of both hips Surgical History H/O heart artery stent H/O heart bypass surgery H/O laminectomy H/O shoulder replacement S/P hernia surgery Family History Other Diabetes Heart disease Social History Smoking Status: Former smoker Cigarettes Per Day: 2 packs; quit 20 yrs ago; Second Hand Exposure: No; Hx Alcohol Use: No Hx Substance Use: No Preferred Language: Lebanese Communication Ability: Effective Loom Winder Tender Required: No Beliefs That Will Affect Care: None marital status: Current Living Situation: Spouse current occupational status: retired How many Children do You have: 2 Feels Safe at Home: Yes Assistive Devices: Glasses Review of Systems Review of Systems: All systems reviewed & are unremarkable except as noted in Subjective Physical Exam Constitutional: well developed, well nourished and + ill appearing; no acute distress Respiratory: normal respiratory effort; no respiratory distress Auscultation: lungs clear to auscultation bilaterally; no crackles, no rales, no rhonchi and no wheezes Cardiovascular: Rate/Rhythm: regular rate and regular rhythm Heart Sounds: normal S1 and normal S2; no murmur Vessels: femoral pulses present and radial pulses present; no JVD and no carotid bruit Gastrointestinal (Abdomen): Inspection/Auscultation: abdomen normal to inspection and normal bowel sounds; abdomen not distended P ercussion/Palpation: abdomen soft; abdomen nontender, no guarding and abdomen not rigid Neurologic: CN's II-XI intact bilaterally and moves all extremities; no focal motor deficits Results & Data Vital Signs (Past 12 Hours) Vital Signs Temp Pulse Resp BP Pulse Ox Pulse Ox O2 Del Method 01/01/23 07:34 36.4 C L 68 18 105/70 96 Room Air 01/01/23 03:42 36.6 C 76 14 115/79 98 Room Air 12/31/22 23:11 36.4 C L 70 14 118/78 97 Room Air 12/31/22 23:11 97 O2 Del Method 01/01/23 07:34 01/01/23 03:42 12/31/22 23:11 12/31/22 23:11 Room Air Laboratory Results Cardiac Enzymes 12/31/22 12/31/22 01/01/23 Range/Units 19:40 21:19 02:42 AST 13 (13-39) U/L Troponin I High Sens 9.8 12.7 12.7 (0-20) pg/ml Coagulation 12/31/22 01/01/23 Range/Units 19:40 02:41 PT 12.1 H (9.0-12.0) Seconds APTT 25.9 54.0 H* (21.0-31.0) Seconds CBC 12/31/22 01/01/23 Range/Units 19:40 02:41 WBC 5.09 4.94 (4.8-10.8) K/ul RBC 4.08 L 3.98 L (4.70-6.10) M/uL Hgb 12.7 L 12.2 L (14.0-18.0) g/dl Hct 36.3 L 35.6 L (42.0-52.0) % Plt Count 113 L 94 L (130-400) K/uL Neut # (Auto) 3.03 2.26 (1.40-6.50) K/uL Lymph # (Auto) 1.45 1.97 (1.2-3.4) K/uL [place] # (Auto) 0.34 0.39 (0.11-0.59) K/uL Eos # (Auto) 0.19 0.24 (0-0.50) K/uL Baso # (Auto) 0.07 0.07 (0-0.2) K/uL Comprehensive Metabolic Panel 12/31/22 01/01/23 Range/Units 19:40 02:41 Sodium 141 142 (136-145) mmol/L Potassium 3.8 3.7 (3.5-5.1) mmol/L Chloride 110 H 110 H (98-107) mmol/L Carbon Dioxide 23 24 (21-32) mmol/L BUN 24 H 23 (6-23) mg/dl Creatinine 0.99 0.94 (0.6-1.4) mg/dl Glucose 171 H 103 H (70-99(Fasting)) mg/dl Calcium 9.1 8.5 (8.5-10.1) mg/dl AST 13 (13-39) U/L ALT 10 (7-52) U/L Alkaline Phosphatase 59 (34-104) U/L Total Protein 6.7 (6.0-8.3) gm/dl Albumin 4.1 (3.4-5.0) gm/dl Intake and Output 12/31/22 01/01/23 01/01/23 22:59 06:59 14:59 Intake Total 90.833 / 90.833 Balance 90.833 / 90.833 Intake: IV 90.833 / 90.833 Magnesium Sulfate / D5w 1 gm In 90.833 / 90.833 100 ml @ 50 mls/hr IV Q2H SAIRA Rx#:[id number] Other: Other Intake Source npo # Unmeasured Voids 1 Weight 91.9 kg 88.5 kg Weight Measurement Method Built in [facility] Built in [facility] Diagnostic Findings 2D echocardiogram report 12/30/2022: Mild mitral regurgitation is present. Mild tricuspid regurgitation is present. The qualitative LV ejection fraction is 40-44% (mildly reduced). The left ventricular cavity size is mildly enlarged. The left ventricular apex is akinetic. The left ventricular septum and basal inferior wall is hypokinetic. There is an apical left ventricular thrombus. The left ventricular thrombus is small. This study has what is deemed to be a "significant abnormality" consistent with ACT 112. See additional documentation regarding notification of patient and ordering provider.
--- NOTE | 2023-01-01 10:42 | Pre Anesthesia Assessment ---
Date of Service January 01, 2023 Pre Sedation Assessment Vital Signs Temp Pulse Pulse Resp BP BP Pulse Ox 01/01/23 12:55 54 L 20 125/74 96 01/01/23 07:30 66 01/01/23 09:43 63 16 124/70 95 01/01/23 10:20 68 16 113/67 98 01/01/23 07:34 36.4 C L 68 18 105/70 96 01/01/23 03:42 36.6 C 76 14 115/79 98 12/31/22 23:11 36.4 C L 70 14 118/78 97 12/31/22 23:11 12/31/22 21:51 74 20 136/72 95 12/31/22 19:40 73 20 94 12/31/22 19:39 68 12/31/22 19:13 36.7 C 74 20 127/80 96 Pulse Ox O2 Del Method O2 Del Method 01/01/23 12:55 Room Air 01/01/23 07:30 01/01/23 09:43 Room Air 01/01/23 10:20 Room Air 01/01/23 07:34 Room Air 01/01/23 03:42 Room Air 12/31/22 23:11 Room Air 12/31/22 23:11 97 Room Air 12/31/22 21:51 Room Air 12/31/22 19:40 Room Air 12/31/22 19:39 12/31/22 19:13 Room Air Cardiovascular + regular rate and + regular rhythm + S1 normal and + S2 normal; no murmur + femoral pulses present and + radial pulses present; no JVD and no carotid bruit no edema Respiratory + respiratory effort normal; no respiratory distress and no labored breathing + clear to auscultation bilaterally; no crackles, no rales, no rhonchi and no wheezes Pre-Sedation Airway Assessment Smoking Status: Former smoker Short, Thick Neck: No Thyromental Distance: > or= 3.5 Finger Breadths Oral Cavity: + WNL Mallampati Class: III ASA: ASA3 NPO Status Date of Last Intake of Fluids: 12/31/22 Time of Last Intake of Fluids: 20:00 Date of Last Intake of Solid Food: 12/31/22 Time of Last Intake of Solid Foods: 20:00 Procedure Planning Contraindications for Sedation: none Current Medications Reviewed: Yes Notes The planned sedation has been discussed with the patient. Informed Consent was obtained. I have identified the patient, determined the appropriateness of sedation and have assessed the patient immediately prior to the procedure. All medicine(s) and interventions are by my order.
[2023-01-01] MEDS ORDERED: niCARdipine HCL INJ 2.5 MG/ML 10 ML AMP ONE (10:48)
[2023-01-01] MEDS ORDERED: HEPARIN (PORCINE) 1000 UNIT/ML 10 ML (CATH LAB USE ONLY) ONE (10:48)
[2023-01-01] MEDS ORDERED: MIDAZOLAM HCL 1 MG/ML 2ML VIAL ONE ×2 (10:48→12:09)
[2023-01-01] MEDS ORDERED: fentaNYL citrate PF 100 MCG/2 ML VIAL ONE (10:48)
[2023-01-01] MEDS ORDERED: NITROGLYCERIN/D5W 100MCG/ML 20ML SYR ONE (10:49)
--- NOTE | 2023-01-01 11:46 | Pharmacy Report ---
Pharmacy Glycemic Short Note 2 - Date of Service January 01, 2023 - Glycemic Short BSG Results (Last 24 hours): 12/31/22 12/31/22 01/01/23 19:40 23:28 02:41 Glucose 171 H 103 H POC Glucose 181 H 01/01/23 08:29 Glucose POC Glucose 141 H OUTPATIENT ANTIDIABETIC REGIMEN: * Metformin 2,000 mg daily * Ozempic 0.25 mg SQ weekly on Mondays ASSESSMENT: * Juanito Yoon is a 77 year old patient with T2DM who presents with chest pain and dyspnea on exertion. Patient's A1C came back today (01/01/23) at 5.9%. Patient is managed at home on Metformin 2,000 mg daily and Ozempic 0.25 mg SQ weekly. * Fasting BSG today was 141 mg/dL and lunchtime BSG was 108 mg/dL. Basal insulin has not been needed up to this point. * Patient received bolus dose of Novolog 2 units last evening. Current bolus regimen: CF:30, CR:10. * Consider adding metformin back to their regimen. PLAN FOR INPATIENT GLYCEMIC CONTROL: * Hold outpatient oral diabetes medications * Basal insulin * None * Bolus insulin * NovoLog per scale ACHS or Q6hrs while NPO * Goal Range: Low 110 mg/dL - High 140 mg/dL * Correction Factor: 30 mg/dL/unit * Nutritional / Prandial insulin per carb ratio of 1 unit per 10 grams CHO consumed
--- NOTE | 2023-01-01 12:13 | Post Anesthesia Assessment ---
Date of Service January 01, 2023 Post Sedation Assessment Vital Signs Temp Pulse Pulse Resp BP BP Pulse Ox 01/01/23 12:55 54 L 20 125/74 96 01/01/23 07:30 66 01/01/23 09:43 63 16 124/70 95 01/01/23 10:20 68 16 113/67 98 01/01/23 07:34 36.4 C L 68 18 105/70 96 01/01/23 03:42 36.6 C 76 14 115/79 98 12/31/22 23:11 36.4 C L 70 14 118/78 97 12/31/22 23:11 12/31/22 21:51 74 20 136/72 95 12/31/22 19:40 73 20 94 12/31/22 19:39 68 12/31/22 19:13 36.7 C 74 20 127/80 96 Pulse Ox O2 Del Method O2 Del Method 01/01/23 12:55 Room Air 01/01/23 07:30 01/01/23 09:43 Room Air 01/01/23 10:20 Room Air 01/01/23 07:34 Room Air 01/01/23 03:42 Room Air 12/31/22 23:11 Room Air 12/31/22 23:11 97 Room Air 12/31/22 21:51 Room Air 12/31/22 19:40 Room Air 12/31/22 19:39 12/31/22 19:13 Room Air Recovery Score Respiration: Deep Breath/Cough Circulation: +/-20% PreAnes Value Consciousness: Arouseable (by name) Oxygen Saturation: > 92% On Room Air Discharge Sedation Level of Care: Phase I Post Sedation Plan On clinical assessment, the patient appears to have tolerated the sedation without complications. Patient is recovering as anticipated. Patient will continue to be monitored by nursing and may be discharged when sedation discharge criteria are met per below protocol. Upon Completions of procedure up to 15 minutes continue every 5 minute vital signs and the P.A.R. score; then discharge to a Phase I or Fast Track to Phase II per the following guidelines: * Discharge Patient to appropriate Phase II area if PAR is 8 or greater or return to pre- procedure baseline. The post - procedure orders will be as directed. * If PAR score is less than 8 or not return to pre-procedure baseline then patient will follow Phase I monitoring till PAR is reached for Phase II. The Phase I may be done in procedure room or may call to secure a Phase I area. * If naloxone or flumazenil are used for reversal, hold in Phase I for continued monitoring from when last reversal dose was given for a minimum of 60 minutes or longer pending the nurse and/or physician discretion of patient condition before discharge to Phase II. Please call the Sedation Physician to re-evaluate and complete post-note for discharge to Phase II area. Do NOT discharge from procedure sedation or Phase 1 until post- sedation evaluation note is complete by procedure /sedation MD Sedation Discharge Instructions to be given to the patient at discharge to home.
--- NOTE | 2023-01-01 12:31 | Cardiac Catheterization ---
Cardiac Cath Procedure Full Procedure Date January 01, 2023 Pre-Procedure Diagnosis Pre-Procedure Diagnosis: Non STEMI and Cardiomyopathy (New left ventricular apical thrombus) AUC Score AUC Score: 8 Post-Procedure Diagnosis Post-Procedure Diagnosis: Severe CAD Procedure(s) Performed Procedure(s) Performed: Coronary Angiography and Bypass Graft Angiography [employer] Executive [employer] Dusty Juarez DO Elect[employer]lag Welding Machine Operator(s) Tayler, RTR Estimated Blood Loss Estimated Blood Loss: 8cc Medication(s) Medication(s): Fentanyl, Heparin, Lidocaine 1%, Nicardipine and Versed Summary of Findings Patient access obtained via left radial approach. The left subclavian artery was found to be tortuous requiring use of a Glidewire to reach the aortic root. The right coronary artery was engaged with a 3 DRC. The right coronary artery is totally occluded in its proximal portion. Scant bridging collaterals noted perfusing the proximal artery. There is no competitive flow visualized. The distal vessel is suboptimally visualized via left to right collaterals from the left anterior descending artery, and left circumflex. There is a secondary artery arising from the right coronary cusp, likely RV marginal/right atrial artery without significant disease. The left main was cannulated with a JL 4 catheter. The left main is free of significant disease. The left anterior descending artery is 100% occluded at its ostium. A small septal canal equipment maintenance supervisor fills via bridging collaterals. The mid and apical vessel is visualized via injections of the LOPEZ bypass graft. There is a 20% mid stenosis, 80% apical stenosis. The vessel is small caliber near the apex and not a good target for intervention. The left circumflex is a large vessel and codominant with evidence of left to to right collaterals perfusing the distal RCA. Proximal stent demonstrates moderate in-stent restenosis, 40%. The vessel gives rise to a large first obtuse marginal branch vessel which has several secondary branches. There is 80% distal followed by a 70% distal stenosis. Stenosis is somewhat hazy and likely represents thrombus. The remainder of the mid to distal left circumflex demonstrates mild luminal irregularities with stenosis ranging up to 20%. 2 small posterior lateral branch vessels are free of significant disease and gives rise to left to right collaterals. The left internal mammary artery graft was engaged with a 3 DRC catheter. The LOPEZ is widely patent throughout its course. The anastomosis is free of sign ificant disease. Saphenous vein graft to the RCA: Not visualized, presumed occluded. Hemodynamics Rest Ao:: 101/57/74 Final Ao: 109/57/82 LV: N/A Recommendations Recommendations: PCI without planned CABG Specimens Specimens: None Radiation Exposure (mGy) 2088 Contrast (mls) 115 Fluids (cc crystalloids) Fluids (cc crystalloids): 185 Nss Drains Drains: N/A Anesthesia Moderate sedation. Start 1106. End: 1159. Sedation monitor: Showers RN Procedural Complication(s) None Disposition Patient remained in Leadership Recruiter for PCI I attest to the content of the Intraoperative Record and any orders documented therein. Any exceptions are noted below. ACC Data: [employer] Recruiter Cardiac Status Clinical evaluation leading to the procedure Patient presented for outpatient echocardiogram 12/31/2022 demonstrating ischemic cardiomyopathy, apical akinesis, inferior wall motion abnormality. Patient referred to the ER due to ongoing chest discomfort both at rest and with exertion in addition to shortness of breath and orthopnea. Resting anginal symptoms this morning prompting treatment with sublingual nitroglycerin and topical nitrates. CAD Presenation: Non STEMI Anginal Classification: CCS IV Heart Failure: NYHA Class: CCS III Cardiogenic Shock within 24 Hours: No Cardiac Arrest within 24 Hours: No Imaging Studies Past 6 Months: Yes Stress Studies Past 6 Months: No STEMI OR Non-STEMI Symptom Onset Date: 12/16/22 Symptom Onset Time: 07:00 Thrombolytics: No Coronary Anatomy Dominant: Co-Dominant Diagnostic Physicians Name: Dusty Juarez DO Closure Device Percutaneous Entry Location: Radial (Left radial) Closure Device: Radial Band Recommendations: PCI without planned CABG Intraprocedure Events Significant Disection: No Perforation: No
[2023-01-01] MEDS ORDERED: CLOPIDOGREL BISULFATE 300 MG TAB ONE (12:45)
--- NOTE | 2023-01-01 13:09 | Post Anesthesia Assessment ---
Date of Service January 01, 2023 Post Sedation Assessment Vital Signs Temp Pulse Pulse Resp BP BP Pulse Ox 01/01/23 12:55 54 L 20 125/74 96 01/01/23 07:30 66 01/01/23 09:43 63 16 124/70 95 01/01/23 10:20 68 16 113/67 98 01/01/23 07:34 97.5 F L 68 18 105/70 96 01/01/23 03:42 97.9 F 76 14 115/79 98 12/31/22 23:11 97.5 F L 70 14 118/78 97 12/31/22 23:11 12/31/22 21:51 74 20 136/72 95 12/31/22 19:40 73 20 94 12/31/22 19:39 68 12/31/22 19:13 98.1 F 74 20 127/80 96 Pulse Ox O2 Del Method O2 Del Method 01/01/23 12:55 Room Air 01/01/23 07:30 01/01/23 09:43 Room Air 01/01/23 10:20 Room Air 01/01/23 07:34 Room Air 01/01/23 03:42 Room Air 12/31/22 23:11 Room Air 12/31/22 23:11 97 Room Air 12/31/22 21:51 Room Air 12/31/22 19:40 Room Air 12/31/22 19:39 12/31/22 19:13 Room Air Recovery Score Activity: Moves 4 extremities Respiration: Deep Breath/Cough Circulation: +/-20% PreAnes Value Consciousness: Fully Awake Oxygen Saturation: > 92% On Room Air Post Anesthesia Score: 10 Discharge Sedation Level of Care: Fast Track Phase II Post Sedation Plan On clinical assessment, the patient appears to have tolerated the sedation without complications. Patient is recovering as anticipated. Patient will continue to be monitored by nursing and may be discharged when sedation discharge criteria are met per below protocol. Upon Completions of procedure up to 15 minutes continue every 5 minute vital signs and the P.A.R. score; then discharge to a Phase I or Fast Track to Phase II per the following guidelines: * Discharge Patient to appropriate Phase II area if PAR is 8 or greater or return to pre- procedure baseline. The post - procedure orders will be as directed. * If PAR score is less than 8 or not return to pre-procedure baseline then patient will follow Phase I monitoring till PAR is reached for Phase II. The Phase I may be done in procedure room or may call to secure a Phase I area. * If naloxone or flumazenil are used for reversal, hold in Phase I for continued monitoring from when last reversal dose was given for a minimum of 60 minutes or longer pending the nurse and/or physician discretion of patient condition before discharge to Phase II. Please call the Sedation Physician to re-evaluate and complete post-note for discharge to Phase II area. Do NOT discharge from procedure sedation or Phase 1 until post- sedation evaluation note is complete by procedure /sedation MD Sedation Discharge Instructions to be given to the patient at discharge to home.
--- NOTE | 2023-01-01 13:18 | Cardiac Catheterization ---
[facility] Data: [place] Cardiac Status Clinical evaluation leading to the procedure CAD Presenation: Non STEMI Anginal Classification: CCS IV Diagnostic Physicians Name: Williams Bull MD Closure Device Recommendations: PCI without planned CABG Cardiac Cath Procedure Full Procedure Date January 01, 2023 Pre-Procedure Diagnosis Pre-Procedure Diagnosis: Non STEMI and Cardiomyopathy (New left ventricular apical thrombus) AUC Score AUC Score: 8 Post-Procedure Diagnosis Post-Procedure Diagnosis: Severe CAD and Successful PCI Procedure(s) Performed Procedure(s) Performed: Coronary Angiography and Drug Eluting Stent Clinical Laboratory Manager Williams Bull MD Systems Developer(s) Tayler, RTR Estimated Blood Loss Estimated Blood Loss: 15 Medication(s) Medication(s): Clopidogrel, Fentanyl, Heparin, Lidocaine 1%, Nicardipine, Nitroglycerin and Versed Summary of Findings Indication: NSTEMI Access: 6 Fr left radial artery Catheters: EBU 3.75 guide Findings: For full details of patient's coronary angiography please see cath report dictated by Dr. Juarez. Briefly, patient found to have severe potentially acute on chronic disease in large OM 3. Decision to proceed with PCI. -- PCI -- Antithrombotic therapy: Heparin, clopidogrel Procedure: Left main cannulated with EBU 3.75 guide Pre-procedure flow KIRK 3 Debt Collection Specialist 50 wire passed across lesion into distal vessel OM 3 lesion predilated with 2.5 compliant balloon Dilated lesion stented with 2.75 x 18 mm [place] drug-eluting stent Stent post-dilated with 3.25 noncompliant balloon IC vasodilators administered for spasm Post procedure KIRK 3 flow and no apparent cardiac complications. Residual stenosis in proximal aspect of stent due to heavily calcified disease refractory to post dilation with NC balloon at high pressure. Arterial Closure: TR band Summary: 1. PCI of OM3 with single drug-eluting stent (2.75 x 18 mm Donovan ME: Postdilated with 3.25 NC). Recommendations: To PCU for continued monitoring Loaded with clopidogrel 60 mg in [place] Continue dual-antiplatelet therapy for at least 1 year Continue statin, and ASCVD risk factor modification Consult cardiac Rehab Hemodynamics Rest Ao:: 107/57/78 Final Ao: 108/58/75 LV: -- Recommendations Recommendations: PCI without planned CABG Specimens Specimens: None Radiation Exposure (mGy) 4163 Contrast (mls) 75 Drains Drains: N/A Anesthesia Moderate sedation. Start 1203 End: 1244 Sedation monitor: Enio RN Procedural Complication(s) None Disposition PCU I attest to the content of the Intraoperative Record and any orders documented therein. Any exceptions are noted below. [facility] Card Cath Procedure Codes Moderate Sedation Procedure 1: Sedation/Anesthesia: 28839 Mod Sedation by the same physician; Ea [id number] Minutes Stenting Procedure 1: Cardiovascular Stent Procedures: 16833 Perc transcatheter placement of intracoronary stent(s), with ang PG Care Time/CCT Total # of Minutes Spent Total Time Spent with Patient: Total time spent is greater than 50% in coordination of care (as documented) at patient's floor/unit and/or counseling patient:
[2023-01-01] MEDS ORDERED: SODIUM CHLORIDE 0.9% 1000ML 1,000 ML IV SCH (13:30)
--- NOTE | 2023-01-01 14:02 | Hospitalist Progress Note ---
Date of Service January 01, 2023 Assessment & Plan (1) Non-ST elevation (NSTEMI) myocardial infarction: (2) Apical mural thrombus: (3) Ischemic cardiomyopathy: (4) CAD (coronary artery disease): Plan: Patient has been having intermittent chest discomfort with shortness of breath initially with exertion but more frequent on a regular basis recently. Outpatient echocardiogram noted apical akinesis with left ventricular thrombus, inferior hypokinesis and EF of 40 to 44%. Patient is status post cardiac catheterization today with PCI to OM 3 with single drug-eluting stent. Patient was loaded with Plavix in the [employer] Good[employer] T[employer]. We will continue with dual antiplatelet for at least 1 year. Senior Systems Engineer on board. We will resume heparin drip once wristband is off. Will need ongoing anticoagulation on discharge. Continue atorvastatin. Continue enalapril we will follow-up raw finish mill operator recommendation. (5) Diabetes: Plan: Home metformin on hold Continue insulin per protocol while inpatient Hemoglobin A1c is 5.9 Continue home Celexa, trazodone Got IV mag repletion earlier today. Monitor electrolytes Admission and Anticipated Discharge Date Admission Date: December 31, 2022 Subjective Patient seen and examined. Patient just returned from [employer]. Denies any chest pain, cough, shortness of breath at this time. Denies any nausea, vomiting, abdominal pain Denies any fevers or chills Physical Exam Constitutional: + well hydrated; no acute distress Eyes: PERRL, conjunctivae normal, anicteric sclerae ENMT: external ear and nose normal, oropharynx normal Respiratory: normal respiratory effort, lungs clear to auscultation Cardiovascular: Rate/Rhythm: regular rhythm and + bradycardic S1 S2 Gastrointestinal (Abdomen): normal bowel sounds, soft, nontender, no hepatosplenomegaly Musculoskeletal: No pedal edema Left wrist band cath access Neurologic: PERRL, EOMI, accommodation nl, no face palsy, no dysarthria Psychiatric: A+Ox3, euthymic affect Results & Data Results & Data Vital Signs (Past 12 Hours) Vital Signs Temp Pulse Pulse Resp BP BP Pulse Ox 01/01/23 13:33 49 L 14 113/67 97 01/01/23 13:18 36.4 C L 53 L 14 117/73 98 01/01/23 12:55 54 L 20 125/74 96 01/01/23 07:30 66 01/01/23 09:43 63 16 124/70 95 01/01/23 10:20 68 16 113/67 98 01/01/23 07:34 36.4 C L 68 18 105/70 96 01/01/23 03:42 36.6 C 76 14 115/79 98 O2 Del Method 01/01/23 13:33 Room Air 01/01/23 13:18 Room Air 01/01/23 12:55 Room Air 01/01/23 07:30 01/01/23 09:43 Room Air 01/01/23 10:20 Room Air 01/01/23 07:34 Room Air 01/01/23 03:42 Room Air Laboratory Results Abnormal lab results 12/31/22 12/31/22 12/31/22 Range/Units 19:40 19:40 19:40 RBC 4.08 L (4.70-6.10) M/uL Hgb 12.7 L (14.0-18.0) g/dl Hct 36.3 L (42.0-52.0) % Plt Count 113 L (130-400) K/uL Platelet Estimate (Normal) PT 12.1 H (9.0-12.0) Seconds APTT (21.0-31.0) Seconds Activ Coag Time Kaolin (94-140) SECONDS Chloride 110 H (98-107) mmol/L BUN 24 H (6-23) mg/dl BUN/Creatinine Ratio 24.2 H (10-20) Glucose 171 H (70-99(Fasting)) mg/dl POC Glucose (70-99) mg/dl Hemoglobin A1c (4.5-5.6) % Magnesium (1.7-2.4) mg/dl 12/31/22 01/01/23 01/01/23 Range/Units 23:28 02:41 02:41 RBC 3.98 L (4.70-6.10) M/uL Hgb 12.2 L (14.0-18.0) g/dl Hct 35.6 L (42.0-52.0) % Plt Count 94 L (130-400) K/uL Platelet Estimate Decreased L (Normal) PT (9.0-12.0) Seconds APTT 54.0 H* (21.0-31.0) Seconds Activ Coag Time Kaolin (94-140) SECONDS Chloride (98-107) mmol/L BUN (6-23) mg/dl BUN/Creatinine Ratio (10-20) Glucose (70-99(Fasting)) mg/dl POC Glucose 181 H (70-99) mg/dl Hemoglobin A1c (4.5-5.6) % Magnesium (1.7-2.4) mg/dl 01/01/23 01/01/23 01/01/23 Range/Units 02:41 02:41 08:29 RBC (4.70-6.10) M/uL Hgb (14.0-18.0) g/dl Hct (42.0-52.0) % Plt Count (130-400) K/uL Platelet Estimate (Normal) PT (9.0-12.0) Seconds APTT (21.0-31.0) Seconds Activ Coag Time Kaolin (94-140) SECONDS Chloride 110 H (98-107) mmol/L BUN (6-23) mg/dl BUN/Creatinine Ratio 24.5 H (10-20) Glucose 103 H (70-99(Fasting)) mg/dl POC Glucose 141 H (70-99) mg/dl Hemoglobin A1c 5.9 H (4.5-5.6) % Magnesium 1.5 L (1.7-2.4) mg/dl 01/01/23 01/01/23 01/01/23 Range/Units 12:07 12:34 13:14 RBC (4.70-6.10) M/uL Hgb (14.0-18.0) g/dl Hct (42.0-52.0) % Plt Count (130-400) K/uL Platelet Estimate (Normal) PT (9.0-12.0) Seconds APTT (21.0-31.0) Seconds Activ Coag Time Kaolin 197 H 245 H (94-140) SECONDS Chloride (98-107) mmol/L BUN (6-23) mg/dl BUN/Creatinine Ratio (10-20) Glucose (70-99(Fasting)) mg/dl POC Glucose 108 H (70-99) mg/dl Hemoglobin A1c (4.5-5.6) % Magnesium (1.7-2.4) mg/dl
[2023-01-01] MEDS: NITROGLYCERIN 2% OINTMENT 30GM TUBE EXT SCH ×3 (16:29→21:15)
[2023-01-01 19:30] LABS: Partial Thromboplastin Time 27.4 Seconds (21.0-31.0)
[2023-01-01] MEDS: HEPARIN SODIUM/DEXTROSE 25,000 UNITS/500 ML BAG IV SCH (20:00)
[2023-01-01] MEDS ORDERED: traZODone HCL 50 MG TAB PO SCH (21:00)
--- NOTE | 2023-01-02 01:53 | Electrocardiogram Report ---
Test Reason : Blood Pressure : / mmHG Vent. Rate : 069 BPM Atrial Rate : 069 BPM P-R Int : 168 ms QRS Dur : 130 ms QT Int : 428 ms P-R-T Axes : 036 -62 086 degrees QTc Int : 458 ms Sinus rhythm with frequent Premature ventricular complexes Left axis deviation Non-specific intra-ventricular conduction block Cannot rule out Septal infarct (cited on or before 23-SEP-2021) Abnormal ECG When compared with ECG of 07-JAN-2022 00:58, QRS duration has increased Premature ventricular complexes are now Present Confirmed by Joseph Hebert ([id number]) on 01/02/2023 1:52:26 AM Referred By: Carlito Cohn Confirmed By:Joseph Hebert
--- NOTE | 2023-01-02 02:05 | Electrocardiogram Report ---
Test Reason : Blood Pressure : / mmHG Vent. Rate : 062 BPM Atrial Rate : 062 BPM P-R Int : 184 ms QRS Dur : 114 ms QT Int : 430 ms P-R-T Axes : 053 -45 -68 degrees QTc Int : 436 ms Sinus rhythm with frequent Premature ventricular complexes Left axis deviation Possible Anterior infarct (cited on or before 23-SEP-2021) Abnormal ECG When compared with ECG of 31-DEC-2022 19:30, QRS duration has decreased Nonspecific T wave abnormality now evident in Inferior leads T wave inversion more evident in Anterolateral leads Confirmed by Joseph Hebert ([id number]) on 01/02/2023 2:05:18 AM Referred By: Carlito Cohn Confirmed By:Joseph Hebert
--- NOTE | 2023-01-02 02:19 | Electrocardiogram Report ---
Test Reason : Blood Pressure : / mmHG Vent. Rate : 061 BPM Atrial Rate : 061 BPM P-R Int : 178 ms QRS Dur : 120 ms QT Int : 430 ms P-R-T Axes : 028 -51 138 degrees QTc Int : 432 ms Sinus rhythm with Premature ventricular complexes Left axis deviation Anterior infarct (cited on or before 23-SEP-2021) Abnormal ECG When compared with ECG of 01-JAN-2023 05:12, No significant change Confirmed by Joseph Hebert ([id number]) on 01/02/2023 2:19:19 AM Referred By: Carlito Cohn Confirmed By:Joseph Hebert
[2023-01-02 02:48] LABS: Partial Thromboplastin Ratio 1.9
[2023-01-02 03:53] LABS: Partial Thromboplastin Time 53.6 Seconds (21.0-31.0)
[2023-01-02 04:45] LABS: BUN Creatinine Ratio 18.5 (10-20); Calcium 8.1 mg/dl (8.5-10.1); Creatinine Clr Calc Pharmacy 62.7 ml/min; Est GFR (African American) 77.4 ml/min; Est GFR (Non-African American) 66.8 ml/min; Magnesium 1.7 mg/dl (1.7-2.4); Potassium 3.7 mmol/L (3.5-5.1)
[2023-01-02 05:33] LABS: Hematocrit (blood only) 33.6 % (42.0-52.0); Hemoglobin 11.5 g/dl (14.0-18.0); Mean Corpuscular Hemoglobin 30.6 pg (25.0-34.0); Mean Corpuscular Hgb Conc 34.2 g/dL (32.0-36.0); Mean Corpuscular Volume 89.4 fL (80.0-100.0); Mean Platelet Volume 12.1 fL (9.4-12.4); Platelet Count 93 K/uL (130-400); RDW Coefficient of Variation 13.5 % (11.5-14.5); RDW Standard Deviation 44.2 fL (36.4-46.3); Red Blood Count 3.76 M/uL (4.70-6.10); White Blood Count 5.45 K/ul (4.8-10.8)
[2023-01-02] MEDS: NITROGLYCERIN 2% OINTMENT 30GM TUBE EXT SCH ×2 (05:41→09:38)
[2023-01-02] MEDS: LEVOTHYROXINE SODIUM 25 MCG TABLET PO SCH (05:41)
[2023-01-02] MEDS: INSULIN ASPART PER UNIT CHARGE SC SCH ×3 (07:20→13:19)
--- NOTE | 2023-01-02 07:36 | Electrocardiogram Report ---
Test Reason : Blood Pressure : / mmHG Vent. Rate : 065 BPM Atrial Rate : 065 BPM P-R Int : 144 ms QRS Dur : 126 ms QT Int : 436 ms P-R-T Axes : 001 -58 070 degrees QTc Int : 453 ms Normal sinus rhythm Left axis deviation Non-specific intra-ventricular conduction block Abnormal ECG When compared with ECG of 01-JAN-2023 09:31, Premature ventricular complexes are no longer Present Confirmed by Williams Baumann ([id number]) on 01/02/2023 7:35:52 AM Referred By: Carlito Cohn Confirmed By:Hardik Baumann
--- NOTE | 2023-01-02 07:41 | Electrocardiogram Report ---
Test Reason : Blood Pressure : / mmHG Vent. Rate : 058 BPM Atrial Rate : 058 BPM P-R Int : 172 ms QRS Dur : 114 ms QT Int : 472 ms P-R-T Axes : 025 -54 -85 degrees QTc Int : 463 ms Sinus bradycardia with occasional Premature ventricular complexes Left axis deviation Abnormal ECG When compared with ECG of 01-JAN-2023 19:57, (unconfirmed) Premature ventricular complexes are now Present Nonspecific T wave abnormality now evident in Inferior leads T wave inversion now evident in Anterior leads Confirmed by Williams Baumann ([id number]) on 01/02/2023 7:40:56 AM Referred By: Carlito Cohn Confirmed By:Hardik Baumann
[2023-01-02] MEDS ORDERED: metFORMIN HCL 500 MG TAB PO SCH (08:30)
[2023-01-02] MEDS: ENALAPRIL MALEATE 5 MG TAB PO SCH (08:36)
[2023-01-02] MEDS: CITALOPRAM 40 MG TAB PO SCH (08:36)
[2023-01-02] MEDS: PANTOprazole 40 MG TAB PO SCH (08:36)
[2023-01-02] MEDS: ASPIRIN 81 MG ECTAB PO SCH (08:36)
[2023-01-02] MEDS: ATORVASTATIN 40 MG TAB PO SCH (08:36)
[2023-01-02] MEDS: FENOFIBRATE NANOCRYSTALLIZED 145 MG TABLET PO SCH (08:36)
[2023-01-02] MEDS: CYANOCOBALAMIN (B-12) 500 MCG TABLET PO SCH (08:36)
[2023-01-02] MEDS: DOCUSATE SODIUM 100 MG CAP PO SCH (08:36)
[2023-01-02] MEDS: METOPROLOL TARTRATE 50 MG TAB PO SCH (08:37)
[2023-01-02] MEDS: HEPARIN SODIUM/DEXTROSE 25,000 UNITS/500 ML BAG IV SCH (08:40)
[2023-01-02] MEDS ORDERED: CLOPIDOGREL BISULFATE 75 MG TAB PO SCH (09:00)
--- NOTE | 2023-01-02 11:02 | Cardiology Progress Note ---
Date of Service January 02, 2023 Assessment & Plan (1) Non-ST elevation (NSTEMI) myocardial infarction: (2) Apical mural thrombus: (3) Ischemic cardiomyopathy: (4) CAD (coronary artery disease): Plan 77-year-old male presented with symptoms consistent with unstable angina and underwent coronary invention of the circumflex obtuse marginal after diagnostic coronary angiography Patent LOPEZ graft and chronically occluded right coronary noted. Left radial access site healing well Patient improved following coronary invention Anticoagulated with heparin due to observed apical thrombus on outpatient echocardiogram, mild LV dysfunction Recommendations: Patient is ambulatory stable for discharge to home Would recommend initiating anticoagulation with Eliquis 5 mg twice per day, discontinue IV heparin. Continue antiplatelet therapy with clopidogrel, stop aspirin Patient otherwise on guideline directed medical therapies including beta-maritza ARELIS inhibitor and statin Follow-up cardiology 2 to 4 weeks Cardiac rehab consultation Admission and Anticipated Discharge Date Admission Date: December 31, 2022 Subjective Patient was seen and examined, chart, medications, telemetry reviewed Feels improved this morning following coronary invention yesterday Ambulatory in room without chest pain or discomfort. Review of Systems Review of Systems: All systems reviewed & are unremarkable except as noted in Subjective Physical Exam Constitutional: well developed and well nourished; no acute distress ENMT: Mallampati Class: III Neck: trachea midline, no thyromegaly Respiratory: normal respiratory effort; no respiratory distress and no labored breathing Auscultation: lungs clear to auscultation bilaterally; no crackles, no rales, no rhonchi and no wheezes Cardiovascular: Rate/Rhythm: regular rate and regular rhythm Heart Sounds: normal S1 and normal S2; no murmur Vessels: femoral pulses present and radial pulses present (Left radial access site healing well); no JVD and no carotid bruit Extremities: no edema Gastrointestinal (Abdomen): Inspection/Auscultation: abdomen normal to inspection and normal bowel sounds; abdomen not distended Percussion/Palpation: abdomen soft; abdomen nontender, no guarding and abdomen not rigid Neurologic: CN's II-XI intact bilaterally and moves all extremities; no focal motor deficits Results & Data Vital Signs (Past 12 Hours) Vital Signs Temp Pulse Pulse Resp BP BP Pulse Ox 01/02/23 08:40 36.3 C L 60 20 119/67 94 01/02/23 07:31 63 03/18/23 03:51 36.5 C 61 18 100/59 L 93 01/01/23 23:23 36.5 C 73 18 91/54 L 96 O2 Del Method 01/02/23 08:40 Room Air 01/02/23 07:31 01/02/23 03:51 Room Air 01/01/23 23:23 Room Air Laboratory Results Laboratory Results - last 24 hr 01/01/23 01/01/23 01/01/23 12:07 12:34 13:14 WBC RBC Hgb Hct MCV MCH MCHC RDW Std Deviation RDW Coeff of Guera Plt Count MPV APTT PTT Ratio Activ Coag Time Kaolin 197 H 245 H Sodium Potassium Chloride Carbon Dioxide Anion Gap BUN Creatinine Est Cr Clr Drug Dosing Est GFR ( Amer) Est GFR (Non-Af Amer) BUN/Creatinine Ratio Glucose POC Glucose 108 H Calcium Phosphorus Magnesium Troponin I High Sens 01/01/23 01/01/23 01/01/23 14:04 16:17 16:48 WBC RBC Hgb Hct MCV MCH MCHC RDW Std Deviation RDW Coeff of Guera Plt Count MPV APTT PTT Ratio Activ Coag Time Kaolin Sodium Potassium Chloride Carbon Dioxide Anion Gap BUN Creatinine Est Cr Clr Drug Dosing Est GFR ( Amer) Est GFR (Non-Af Amer) BUN/Creatinine Ratio Glucose POC Glucose 118 H Calcium Phosphorus Magnesium Troponin I High Sens 9.3 14.4 D 01/01/23 01/01/23 01/02/23 18:30 20:42 01:50 WBC RBC Hgb Hct MCV MCH MCHC RDW Std Deviation RDW Coeff of Guera Plt Count MPV APTT 27.4 53.6 H* PTT Ratio 1.0 1.9 Activ Coag Time Kaolin Sodium Potassium Chloride Carbon Dioxide Anion Gap BUN Creatinine Est Cr Clr Drug Dosing Est GFR ( Amer) Est GFR (Non-Af Amer) BUN/Creatinine Ratio Glucose POC Glucose 124 H Calcium Phosphorus Magnesium Troponin I High Sens 01/02/23 01/02/23 01/02/23 04:10 04:10 04:10 WBC 5.45 RBC 3.76 L Hgb 11.5 L Hct 33.6 L MCV 89.4 MCH 30.6 MCHC 34.2 RDW Std Deviation 44.2 RDW Coeff of Guera 13.5 Plt Count 93 L MPV 12.1 APTT Cancelled PTT Ratio Cancelled Activ Coag Time Kaolin Sodium 138 Potassium 3.7 Chloride 108 H Carbon Dioxide 24 Anion Gap 6 BUN 20 Creatinine 1.08 Est Cr Clr Drug Dosing 62.7 Est GFR ( Amer) 77.4 Est GFR (Non-Af Amer) 66.8 BUN/Creatinine Ratio 18.5 Glucose 136 H POC Glucose Calcium 8.1 L Phosphorus 3.0 Magnesium 1.7 Troponin I High Sens 01/02/23 07:31 WBC RBC Hgb Hct MCV MCH MCHC RDW Std Deviation RDW Coeff of Guera Plt Count MPV APTT PTT Ratio Activ Coag Time Kaolin Sodium Potassium Chloride Carbon Dioxide Anion Gap BUN Creatinine Est Cr Clr Drug Dosing Est GFR ( Amer) Est GFR (Non-Af Amer) BUN/Creatinine Ratio Glucose POC Glucose 133 H Calcium Phosphorus Magnesium Troponin I High Sens
[2023-01-02] MEDS ORDERED: APIXABAN 5 MG TABLET PO ONE (13:21)
--- NOTE | 2023-01-02 13:24 | Discharge Summary ---
Date of Service January 02, 2023 Admission HPI Per Admitting Provider 77-year-old male with past medical history significant for type 2 diabetes, hypothyroidism, hyperlipidemia, polyneuropathy, history of CVA, hypertension, history of cirrhosis of liver, history of diverticulitis of colon, irritable bowel syndrome with both constipation and diarrhea, B12 deficiency, acquired cyst of kidney, BPH, cervical spondylosis, history of brachial neuritis, depression, primary insomnia, history of incisional hernia without obstruction or gangrene was sent in by Cardiology office because of abnormal echo. The patient says for the last 2 weeks, he is having chest pains on and off, mostly with exertions, walking short distance making chest pains and resting relieves the pain, also getting short of breath with exertion, and he had a routine 2D echo yesterday and results showed wall motion abnormalities and left ventricular apical thrombus and Cardiology advised him to come to the hospital for anticoagulation and possible cardiac catheterization. The patient currently started on IV heparin, resting comfortably, hemodynamically stable, currently some chest pressure, but not bad, no shortness of breath. He says he has had mild headaches once in a while and while walking he gets some dizziness. Denies any blurred vision. Somewhat hard of hearing, no runny nose, no sore throat. No cough. Appetite is okay. No difficulty swallowing. No nausea, no abdominal pain. Denies any blood in stools or black stools. Denies any hematuria, no swelling in the legs. no orthopnea Admission Exam Per Admitting Provider GENERAL: The patient is of moderate build, not in acute distress. VITAL SIGNS: Temperature 36.7, pulse 73, respiratory rate 20, blood pressure 127/80, oxygen 94% on room air. HEENT: Pupils equal, round and reactive to light. Oral mucosa moist. NECK: No JVD, no neck masses. CARDIOVASCULAR: S1 and S2 heard. Regular rate and rhythm. No murmur, no gallop. RESPIRATORY SYSTEM: Normal AP diameter. No accessory muscle use. No wheezing, no crackles. ABDOMEN: Soft. Bowel sounds present. Nontender, no distention. CENTRAL NERVOUS SYSTEM: Cranial nerves II through XII grossly intact, nonfocal. EXTREMITIES: No edema, no erythema seen. Principal Diagnosis Non ST elevation myocardial infarction Apical mural thrombus Coronary artery disease Discharge Exam Constitutional + well hydrated; no acute distress Eyes PERRL, conjunctivae normal, anicteric sclerae ENMT external ear and nose normal, oropharynx normal Respiratory normal respiratory effort, lungs clear to auscultation Cardiovascular Rate/Rhythm: regular rate and regular rhythm S1 S2 Gastrointestinal (Abdomen) normal bowel sounds, soft, nontender, no hepatosplenomegaly Musculoskeletal No pedal edema Neurologic PERRL, EOMI, accommodation nl, no face palsy, no dysarthria Psychiatric A+Ox3, euthymic affect Discharge Data Allergies Allergy/AdvReac Type Severity Reaction Status Date / Time niacin Allergy Unknown ITCHY Verified 12/31/22 21:09 SPLOTCHY RASH Consultations 12/31/22 20:32 ED Decision to Admit Stat 01/01/23 08:00 Consult Cardiology Routine Procedures Performed Operation Date: 01/01/23 11:00 Actual Procedures p Cineradiography w/Routine Exam - DO aram Zavala Cath, Cors with Grafts (no LV) - DO kevin Zavala Drug Eluting Stent SGl Vessel - Lloyd Bull MD Ordered Studies 01/01/23 10:50 CL Cath Imgs for PACS use only Urgent Hospital Course (1) Non-ST elevation (NSTEMI) myocardial infarction: (2) Apical mural thrombus: (3) Ischemic cardiomyopathy: (4) CAD (coronary artery disease): Patient has been having intermittent chest discomfort with shortness of breath initially with exertion but more frequent on a regular basis recently. Outpatient echocardiogram noted apical akinesis with left ventricular thrombus, inferior hypokinesis and EF of 40 to 44%. Left ventricular thrombosis likely in the setting of acute myocardial infarction Patient is status post cardiac catheterization on 01/01/23 with PCI to OM 3 with single drug-eluting stent. Patient was loaded with Plavix in the Independent Consultant. He was started on heparin drip while inpatient Discussed with Senior Technical Specialist Dr Read. He recommended stopping Aspirin and discharging patient on Plavix 75mg daily and eliquis 5mg bid I educated patient about anticoagulant eliquis and the medication changes Continue atorvastatin. Continue enalapril He will follow-up geology associate recommendation. (5) Diabetes: Continue home metformin Hemoglobin A1c is 5.9 Continue home Celexa, trazodone Total Time Total Time Spent Total Time Spent (In Minutes): 45 Total Time Includes: Examination of the Patient, Discharge Planning, Medication Reconciliation, Communication With Other Providers and Other Discharge Plan Discharge Items Patient Disposition: Home - Self-Care Reason For Visit: ABNORMAL ECHO, MARC AND CHEST PAINS Discharge Diagnosis: Non ST elevation myocardial infarction Apical mural thrombus Coronary artery disease Activity: Resume your previous activity Non-emergency contact: Primary Care Provider and Senior Technical Specialist Call non-emergency contact if: you have any medication questions and your symptoms worsen Follow-up/Referrals: Neo Han MD [Primary Care Provider] - Diet: Carb Consistent or DM2 and Heart Healthy Addtl Attending Provider Instructions: Mr Yoon You came to the hospital after Echocardiogram showed abnormal findings including blood clot in your heart. You were started on blood thinners You had cardiac catheterization and had one stent placed in one of the blood vessels of your heart. You are being discharged home. Please stop taking Aspirin. Start taking the blood thinner eliquis (apixaban) and the antiplatelet called Plavix (clopidogrel) Please ensure follow up wtih your Primary Doctor and Senior Technical Specialist. It was a pleasure taking care of you Pending Studies at Discharge: No Stand-Alone Forms: My [facility], Smoking Cessation Medications and DC Order Prescriptions: New Eliquis 5 mg Tablet 5 mg PO BID Qty: 60 0RF clopidogrel 75 mg Tablet 75 mg PO QAM Qty: 30 0RF Continued atorvastatin [Lipitor] 40 mg tablet 40 mg PO DAILY citalopram [Celexa] 40 mg tablet 40 mg PO DAILY enalapril maleate [Vasotec] 2.5 mg tablet 2.5 mg PO BID levothyroxine 25 mcg capsule 25 mcg PO DAILY trazodone 50 mg tablet 50 mg PO HS metformin 1,000 mg tablet 2,000 mg PO DAILY metoprolol tartrate 50 mg tablet 50 mg PO BID docusate sodium 100 mg capsule 100 mg PO BID cyanocobalamin (vitamin B-12) 1,000 mcg Tablet 1,000 mcg PO DAILY sildenafil [Viagra] 100 mg Tablet 100 mg PO DIRECTED PRN (Reason: Erectile Dysfunction) fenofibrate micronized 134 mg capsule 134 mg PO DAILY Ozempic 0.25 mg or 0.5 mg(2 mg/1.5 mL) pen injector 0.25 mg SUBCUT WK Rx Instructions: TAKES ON mon pantoprazole 40 mg Tablet,Delayed Release (Dr/Ec) 40 mg PO QAM Qty: 30 0RF acetaminophen 325 mg Tablet 650 mg PO Q6H PRN (Reason: fever or pain) Qty: 60 0RF psyllium husk [Fiber (psyllium husk)] 0.4 gram Capsule 0.4 g PO DAILY Qty: 30 0RF Discontinued aspirin [Noé Low Dose Aspirin] 81 mg tablet,delayed release (DR/EC) 81 mg PO DAILY Discharge Orders: Discharge Order (Routine); Ordered 01/02/23 Ordered By: Mya Jaramillo/Other Patient Handouts: Cardiac Catheterization Dc Admission Data Admit Date/Time: 12/31/22 21:47 Attending Provider: Mya Cumminsg I. Admit Provider: Froylan John Primary Care Provider: Neo Han Other Providers: Froylan John ; Kenisha Biggs ; Carlito Cohn ; Vidla Zamora ; Drew Read ; Dusty Juarez ; Julian Fiore ; Jh Brownlee ; Louann Cortez ; Marianna Lares ; Kenisha Martinez ; Brenden Agrawal Other Interventions: Discharge Summary Assessment (RN) Last Done: 01/02/23 13:23
[2023-01-02] MEDS ORDERED: APIXABAN 5 MG TABLET PO SCH (21:00)
== END 2023-01-02 15:38 | disposition home or self-care (01) | DRG 247 ==
LOC: ED 19:01 → 4W 21:47
PROC: CLB.CCG (2023-01-01 11:00)

== ENCOUNTER 2024-12-28 14:39 | Inpatient (IN) ==
--- NOTE | 2024-12-28 15:31 | Emergency Department Note ---
Impression & Plan Elevated troponin, Acute bronchospasm ADMIT ED Provider Note HPI: History obtained from patient. The patient is a 79-year-old gentleman with history of coronary artery disease status post CABG, ischemic cardiomyopathy, left atrial thrombus, on Coumadin, hypertension, diabetes, presents the emergency department with a chief complaint of cough and shortness of breath for the past 2 weeks. Patient states his was recently diagnosed with RSV. Patient states that he went to his PCPs office today and was told he likely had pneumonia, given his wheezing and increased work of breathing he was sent to the emergency department for further assessment. On arrival here to the ED the patient is tachycardic and does exhibit a cough, he is saturating well on room air on arrival, patient denies any chest pain. Blood pressure is stable at 109/83 on arrival, patient is afebrile. ROS: - Per HPI Differential Diagnosis: COPD exacerbation, viral upper respiratory infection with acute bronchitis, COVID-19, influenza A, pneumonia, ACS, CHF exacerbation, amongst other potential pathologies. *Outpatient medications and allergy history reviewed. PE: General: Alert HEENT: Normocephalic, trachea midline Eyes: Extraocular eye movement is intact, no scleral erythema Pulmonary: Coarse bilateral breath sounds with bilateral expiratory wheezing throughout Cardio: Mildly tachycardic rate with regular rhythm GI: Abdomen is soft to palpation : No suprapubic tenderness MSK: No evidence of trauma or malformation of the extremities, no edema Skin: No evidence of rash Neuro: Alert, no focal deficits Psychiatric: Cooperative INDEPENDENT INTERPRETATIONS: secured entrance monitor: (As interpreted by myself): - An order was placed for continuous cardiac monitoring - Patient was noted to be in atrial fibrillation with a rate of 108 EKG: (As interpreted by myself): Rate: 118 Rhythm: Atrial fibrillation Intervals: Within normal limits ST changes: No ST elevation Time: 1446 Chest x-ray: (As interpreted by myself): No focal infiltrate, pulmonary edema pattern Interventions provided in ED: -IV Lasix, DuoNeb breathing treatment, IV Solu-Medrol Medical Decision Making: Patient exhibits significant wheezing on my initial assessment, initial DuoNeb breathing treatment was ordered, IV was established and lab work obtained. Patient has a mild leukopenia at 4.58, hemoglobin is stable at 12.4, platelet count is reduced at 98 however this does also appear to be baseline. INR is slightly supratherapeutic at 3.6, VBG shows a venous pH of 7.33 with pCO2 that is normal at 40. CMP does not show any evidence of any critical findings. Troponin is mildly elevated at 49.0, BNP is also elevated at 611. Chest x-ray does not show any obvious pneumonia but there is a pattern of pulmonary edema. Given this in addition to the patient's increased work of breathing he was treated with IV Lasix, patient was also given DuoNeb breathing treatment and IV Solu-Medrol for his significant wheezing here in the ED. Patient denies any chest pain, low suspicion for ACS. He has not had any true hypoxia here in the ED but at times has been tachypneic with significant expiratory wheezing. I do feel he would benefit from admission for further care, his viral panel testing was positive for RSV. I suspect majority of the patient's symptoms are respiratory in nature and likely his troponin elevation is related to demand ischemia. I discussed all of this with the patient, he is in agreement for admission. The patient's presentation was discussed with the on-call hospitalist, Dr. Matta, and the patient was placed for admission in stable condition for further care. Consultants/Discussions held with other healthcare providers: -Hospitalist, Dr. Matta Disposition discussion held by myself with: -Patient Diagnosis: 1. RSV infection, acute 2. Acute bronchospasm/wheezing 3. Dyspnea, acute 4. Elevated high-sensitivity troponin level, acute 5. History of CAD, status post CABG 6. Elevated BNP, acute Disposition: Admission Jh Gutiérrez DO Emergency Medicine Past Med/Surg History Problem List (Updated 10/01/23 @ 11:01 by Yanira Canales) Acute bronchospasm (Acute) Elevated troponin (Acute) Ischemic cardiomyopathy Non-ST elevation (NSTEMI) myocardial infarction Lab test negative for COVID-19 virus (Acute) Apical mural thrombus (Acute) Chest pain (Acute) Diverticulitis (Acute) Shoulder pain Carpal tunnel syndrome, left Cervical radiculopathy at C8 Chronic back pain HTN (hypertension) Lumbar radicular pain "off and on" CAD (coronary artery disease) 1994-CABG x2 2004-[facility] to circumflex 12/2022-[facility] @[place] Diabetes weekly injection 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 ongoing H/O heart artery stent (Acute) 2004, [facility], x1 stent 12/2022, [facility], x1 stent; f/u [facility] cardio Medical History (Updated 12/28/24 @ 17:52 by Jh Gutiérrez DO) Cirrhosis of liver currently stable, f/u specialist at [facility] gw Hx of myocardial infarction 2004, taken to [facility] for double bypass; f/u [facility] cardio GERD (gastroesophageal reflux disease) Hypothyroidism Hx of long-term (current) use of anticoagulants eliquis and clopidogrel Cervical disc disorder at C5-C6 level with radiculopathy Lumbar back pain with radiculopathy affecting left lower extremity "off and on" High cholesterol High blood pressure Heart disease Foraminal stenosis of lumbar region L5-S1 DDD (degenerative disc disease), lumbar Rupture of hip abductor tendon no sx Surgical History (Updated 10/01/23 @ 11:01 by Yanira Canales) History of esophagogastroduodenoscopy (EGD) Hx of colonoscopy Hx of tonsillectomy Hx of cardiac cath 2004, [facility], x1 stent 04/2023, having normal checkup w/echo and saw blood clot in the left ventricle, [facility], x1 stent; f/u [facility] cardio S/P hernia surgery abdominal hernia operations x3 H/O heart bypass surgery 1994, double bypass, [facility]; f/u [facility] cardio H/O shoulder replacement left H/O laminectomy ~age 67 Family History Other Diabetes Heart disease Social History Smoking Status: Former smoker Tobacco Type: Cigarettes Cigarettes Per Day: 2 packs; quit 20 yrs ago; Second Hand Exposure: No; Do You Dip or Chew Tobacco: No; Hx Alcohol Use: Yes Alcohol type: wine Hx Substance Use: No Preferred Language: Amharic Communication Ability: Effective Medical Dosimetrist Required: No Beliefs That Will Affect Care: None marital status: Current Living Situation: Spouse current occupational status: retired How many Children do You have: 2 Feels Safe at Home: Yes Assistive Devices: Glasses Allergies Allergies Allergy/AdvReac Type Severity Reaction Status Date / Time niacin Allergy Unknown ITCHY Verified 10/08/23 08:55 SPLOTCHY RASH Home Meds Home Medications Medication Instructions Recorded Confirmed atorvastatin 40 mg tablet (Lipitor) 40 mg PO QAM 12/18/20 12/28/24 citalopram 40 mg tablet (Celexa) 40 mg PO QAM 12/18/20 12/28/24 enalapril maleate 2.5 mg tablet 2.5 mg PO BID 12/18/20 12/28/24 (Vasotec) levothyroxine 25 mcg capsule 25 mcg PO QAM 12/18/20 12/28/24 cyanocobalamin (vitamin B-12) 1,000 mcg PO DAILY 09/23/21 12/28/24 1,000 mcg tablet fenofibrate micronized 134 mg 134 mg PO QAM 09/23/21 12/28/24 capsule semaglutide 0.25 mg or 0.5 mg (2 0.25 mg subcut Q7D 09/23/21 12/28/24 mg/1.5 mL) subcutaneous pen injector (Ozempic) sildenafil 100 mg tablet (Viagra) 100 mg PO UD PRN Erectile 09/23/21 12/28/24 Dysfunction docusate sodium 100 mg capsule 100 mg PO BID PRN Constipation 12/31/22 12/28/24 trazodone 50 mg tablet 50 mg PO HS PRN Sleep 12/31/22 12/28/24 albuterol sulfate 90 mcg/actuation 2 puff inhalation Q6H PRN 12/28/24 12/28/24 aerosol inhaler sob/wheezing amoxicillin 875 mg-potassium 1 tab PO BID 12/28/24 12/28/24 clavulanate 125 mg tablet azithromycin 250 mg tablet 250 mg PO DIRECTED 12/28/24 12/28/24 metoprolol succinate 50 mg 50 mg PO DAILY 12/28/24 12/28/24 tablet,extended release 24 hr ondansetron HCl 4 mg tablet 4 mg PO Q8H PRN Nausea And Vomiting 12/28/24 12/28/24 prednisone 10 mg tablet 10 mg PO UD 12/28/24 12/28/24 warfarin 3 mg tablet 1 - 2 mg PO UD 12/28/24 12/28/24 Previous Rx's Medication Instructions Recorded pantoprazole 40 mg tablet,delayed 40 mg PO QAM #30 tabs 09/24/21 release acetaminophen 325 mg tablet 650 mg (2 x 325 mg) PO Q6H PRN 01/12/22 fever or pain #60 tabs psyllium husk 0.4 gram capsule 0.4 g PO DAILY #30 caps 01/12/22 (Fiber (psyllium husk)) Results & Data (ED) Vital Signs Vital Signs - 24 hr 12/28/24 14:40 12/28/24 15:00 12/28/24 15:54 Temperature 36.8 C Temperature Source Oral Pulse Rate 107 H 97 H 103 H Pulse Rate from SpO2 Sensor 86 119 H Pulse Rhythm Irregular Respiratory Rate 22 30 H 24 Respiratory Effort / Characteristics Labored Blood Pressure 109/83 134/85 122/84 Blood Pressure Mean 91 101 96 Pulse Oximetry 96 95 94 Oxygen Delivery Method Room Air Sepsis Recent Fever Within 48 Hours No Sepsis New/Unexplained Change in Mental Status No Sepsis Action Taken by Nursing Previously Notified 12/28/24 16:16 12/28/24 16:39 Temperature Temperature Source Pulse Rate 100 H 100 H Pulse Rate from SpO2 Sensor 112 H Pulse Rhythm Respiratory Rate 32 H Respiratory Effort / Characteristics Blood Pressure 110/89 Blood Pressure Mean 96 Pulse Oximetry 94 Oxygen Delivery Method Sepsis Recent Fever Within 48 Hours Sepsis New/Unexplained Change in Mental Status Sepsis Action Taken by Nursing Laboratory Data 12/28/24 14:52 12/28/24 14:52 Lab Results 12/28/24 12/28/24 Range/Units 14:52 16:16 WBC 4.58 L (4.8-10.8) K/ul RBC 4.04 L (4.70-6.10) M/uL Hgb 12.4 L (14.0-18.0) g/dl Hct 36.1 L (42.0-52.0) % MCV 89.4 (80.0-100.0) fL MCH 30.7 (25.0-34.0) pg MCHC 34.3 (32.0-36.0) g/dL RDW Std Deviation 46.6 H (36.4-46.3) fL RDW Coeff of Guera 14.3 (11.5-14.5) % Plt Count 98 L (130-400) K/uL MPV 12.8 H (9.4-12.4) fL Immature Gran % (Auto) 0.2 % Neut % (Auto) 67.9 % Lymph % (Auto) 17.2 % Finney % (Auto) 11.8 % Eos % (Auto) 2.0 % Baso % (Auto) 0.9 % Neut # (Auto) 3.11 (1.40-6.50) K/uL Lymph # (Auto) 0.79 L (1.20-3.40) K/uL Finney # (Auto) 0.54 (0.11-0.59) K/uL Eos # (Auto) 0.09 (0.00-0.50) K/uL Baso # (Auto) 0.04 (0.00-0.20) K/uL Immature Gran # (Auto) 0.01 (0.01-0.20) K/uL PT 34.5 H (9.0-12.0) Seconds INR 3.6 H (0.9-1.1) APTT 48 H (21-31) Seconds PTT Ratio 1.8 VBG pH 7.33 L (7.36-7.41) VBG pCO2 40 (38-50) mmHg VBG pO2 51 mmHg VBG HCO3 21 mmol/L VBG O2 Saturation 80.2 % VBG Base Excess -4.5 mEq/L Sodium 136 (136-145) mmol/L Potassium 3.7 (3.5-5.1) mmol/L Chloride 105 (98-107) mmol/L Carbon Dioxide 22 (21-32) mmol/L Anion Gap 9 (3-11) BUN 27 H (6-23) mg/dl Creatinine 0.98 (0.6-1.4) mg/dl Est Cr Clr Drug Dosing 67.4 ml/min eGFR 79.42 BUN/Creatinine Ratio 27.6 H (10-20) Glucose 129 H (70-99(Fasting)) mg/dl Calcium 8.9 (8.6-10.3) mg/dl Total Bilirubin 1.0 (0.2-1.0) mg/dl AST 13 (13-39) U/L ALT 7 (7-52) U/L Alkaline Phosphatase 49 (34-104) U/L Troponin I High Sens 49.0 H (0-20) pg/ml B-Natriuretic Peptide 611 H (0-100) pg/ml Total Protein 6.6 (6.0-8.3) gm/dl Albumin 4.1 (3.4-5.0) gm/dl Globulin 2.5 (2.5-4.0) gm/dl Albumin/Globulin Ratio 1.6 (0.9-2) Procalcitonin 0.11 (0-0.5) ng/ml SARS-CoV-2 (PCR) NEGATIVE (Negative) Influenza Type A (PCR) Negative (Neg) Influenza Type B (PCR) Negative (Neg) RSV (RT-PCR) Positive A (Neg) Administered Medications Discontinued Medications Albuterol (Albut/Ipratrop 3mg/0.5mg Neb 3 Ml Vial) 3 ml NEB NOW STA; Protocol Stop: 12/28/24 15:30 Last Admin: 12/28/24 15:46 Dose: 3 ml Documented By: JATINDER Albuterol (Albut/Ipratrop 3mg/0.5mg Neb 3 Ml Vial) 3 ml NEB NOW STA; Protocol Stop: 12/28/24 17:30 Last Admin: 12/28/24 17:41 Dose: 3 ml Documented By: MR Aspirin (Aspirin Chew 324 Mg) 324 mg PO NOW STA Stop: 12/28/24 17:02 Last Admin: 12/28/24 17:25 Dose: 324 mg Documented By: MR Furosemide (Furosemide Inj 20 Mg/2 Ml Vial) 20 mg IV ONE ONE Stop: 12/28/24 17:05 Last Admin: 12/28/24 17:26 Dose: 20 mg Documented By: MR Furosemide (Furosemide Inj 20 Mg/2 Ml Vial) 20 mg IV ONE ONE Stop: 12/28/24 17:30 Last Admin: 12/28/24 17:36 Dose: 10 mg Documented By: MR Sodium Chloride (Nss) 500 mls @ 999 mls/hr IV .Q31M ONE Stop: 12/28/24 15:59 Last Admin: 12/28/24 15:46 Dose: 999 mls/hr Documented By: JATINDER Methylprednisolone (Methylprednisolone 125 Mg/2 Ml Vial) 125 mg IV NOW STA Stop: 12/28/24 17:02 Last Admin: 12/28/24 17:23 Dose: 125 mg Documented By: MR Ondansetron HCl (Ondansetron Inj 2 Mg/Ml 2 Ml Vial) 4 mg IV NOW STA Stop: 12/28/24 16:03 Last Admin: 12/28/24 16:07 Dose: 4 mg Documented By: JATINDER Imaging Data Radiologist's Impression: Chest X-Ray 12/28/24 15:14 Clinical History: Shortness of breath Technique: 2 frontal views of the chest were obtained Comparison is made to the prior examination dated 12/31/2022 Findings: There is new diffuse interstitial prominence, concerning for pulmonary edema. The heart is mildly enlarged. No pleural effusion or pneumothorax is seen. There is no definite pulmonary nodule. Sternal wires and mediastinal chris are present. There is a left shoulder arthroplasty, unchanged Impression: Cardiomegaly and pulmonary edema Electronically signed by Catalino Ryan 12-28-2024 4:52 PM Discharge Plan Visit Data Chief Complaint: Illness ED Provider: Jh Gutiérrez Discharge Problem: Elevated troponin, Acute bronchospasm Forms Stand Alone Forms: [facility] [place] [employer] Prescriptions Prescriptions: No Action atorvastatin [Lipitor] 40 mg tablet 40 mg PO QAM citalopram [Celexa] 40 mg tablet 40 mg PO QAM enalapril maleate [Vasotec] 2.5 mg tablet 2.5 mg PO BID levothyroxine 25 mcg capsule 25 mcg PO QAM trazodone 50 mg tablet 50 mg PO HS PRN (Reason: Sleep) docusate sodium 100 mg capsule 100 mg PO BID PRN (Reason: Constipation) Rx Instructions: otc unable to verify cyanocobalamin (vitamin B-12) 1,000 mcg Tablet 1,000 mcg PO DAILY Rx Instructions: otc unable to verify sildenafil [Viagra] 100 mg Tablet 100 mg PO UD PRN (Reason: Erectile Dysfunction) fenofibrate micronized 134 mg capsule 134 mg PO QAM Ozempic 0.25 mg or 0.5 mg(2 mg/1.5 mL) pen injector 0.25 mg SUBCUT Q7D Patient Comments: mondays pantoprazole 40 mg Tablet,Delayed Release (Dr/Ec) 40 mg PO QAM Qty: 30 0RF acetaminophen 325 mg Tablet 650 mg PO Q6H PRN (Reason: fever or pain) Qty: 60 0RF Rx Instructions: otc unable to verify psyllium husk [Fiber (psyllium husk)] 0.4 gram Capsule 0.4 g PO DAILY Qty: 30 0RF Rx Instructions: otc unable to verify prednisone 10 mg tablet 10 mg PO UD Rx Instructions: 5 tabs for 2 days, 4 tabs for 2 days, 3 tabs for 2 days, 2 tabs for 2 days, 1 tab for 2 days azithromycin 250 mg tablet 250 mg PO DIRECTED Rx Instructions: 2 tabs po on first day; 1 tab po daily until gone albuterol sulfate 90 mcg/actuation HFA aerosol inhaler 2 puff INHALATION Q6H PRN (Reason: sob/wheezing) amoxicillin-pot clavulanate 875-125 mg tablet 1 tab PO BID metoprolol succinate 50 mg tablet extended release 24 hr 50 mg PO DAILY ondansetron HCl 4 mg tablet 4 mg PO Q8H PRN (Reason: Nausea And Vomiting) warfarin 3 mg tablet 1 - 2 mg PO UD Rx Instructions: as directed by anticoag clinic Referrals Referrals: Neo Han MD [Primary Care Provider] -
[2024-12-28 15:34] LABS: Basophils # (auto) 0.04 K/uL (0.00-0.20); Basophils % (auto) 0.9 %; Eosinophils # (auto) 0.09 K/uL (0.00-0.50); Hematocrit (blood only) 36.1 % (42.0-52.0); Hemoglobin 12.4 g/dl (14.0-18.0); Immature Granulocytes # (auto) 0.01 K/uL (0.01-0.20); Immature Granulocytes % (auto) 0.2 %; Lymphocytes # (auto) 0.79 K/uL (1.20-3.40); Lymphocytes % (auto) 17.2 %; Mean Corpuscular Hemoglobin 30.7 pg (25.0-34.0); Mean Corpuscular Hgb Conc 34.3 g/dL (32.0-36.0); Mean Corpuscular Volume 89.4 fL (80.0-100.0); Mean Platelet Volume 12.8 fL (9.4-12.4); Monocytes # (auto) 0.54 K/uL (0.11-0.59); Monocytes % (auto) 11.8 %; Neutrophils # (auto) 3.11 K/uL (1.40-6.50); Neutrophils % (auto) 67.9 %; Platelet Count 98 K/uL (130-400); RDW Coefficient of Variation 14.3 % (11.5-14.5); RDW Standard Deviation 46.6 fL (36.4-46.3); Red Blood Count 4.04 M/uL (4.70-6.10); White Blood Count 4.58 K/ul (4.8-10.8)
[2024-12-28] MEDS: SODIUM CHLORIDE 0.9% 500 ML IV ONE (15:46)
[2024-12-28] MEDS: ALBUT/IPRATROP 3MG/0.5MG NEB 3 ML VIAL NEB STA ×2 (15:46→17:41)
[2024-12-28 15:51] LABS: Albumin Globulin Ratio 1.6 (0.9-2); Albumin Level 4.1 gm/dl (3.4-5.0); BUN Creatinine Ratio 27.6 (10-20); Calcium 8.9 mg/dl (8.6-10.3); Creatinine Clr Calc Pharmacy 67.4 ml/min; Globulin 2.5 gm/dl (2.5-4.0); Potassium 3.7 mmol/L (3.5-5.1); Total Protein 6.6 gm/dl (6.0-8.3)
[2024-12-28 16:04] LABS: Influenza A virus by PCR Negative (Neg); Influenza B virus by PCR Negative (Neg); RSV by PCR Positive (Neg); SARS CoV2 RNA(COVID-19) Ceph NEGATIVE (Negative)
[2024-12-28] MEDS: ONDANSETRON INJ 2 MG/ML 2 ML VIAL IV STA (16:07)
[2024-12-28 16:08] LABS: INR 3.6 (0.9-1.1); Partial Thromboplastin Ratio 1.8; Partial Thromboplastin Time 48 Seconds (21-31); Prothrombin Time 34.5 Seconds (9.0-12.0)
--- NOTE | 2024-12-28 16:52 | XRay Report ---
Clinical History: Shortness of breath Technique: 2 frontal views of the chest were obtained Comparison is made to the prior examination dated 12/31/2022 Findings: There is new diffuse interstitial prominence, concerning for pulmonary edema. The heart is mildly enlarged. No pleural effusion or pneumothorax is seen. There is no definite pulmonary nodule. Sternal wires and mediastinal chris are present. There is a left shoulder arthroplasty, unchanged Impression: Cardiomegaly and pulmonary edema Electronically signed by Catalino Ryan 12-28-2024 4:52 PM
[2024-12-28 17:00] LABS: Base Excess VBG -4.5 mEq/L; HCO3 VBG 21 mmol/L; Oxygen Saturation VBG 80.2 %; PCO2 VBG 40 mmHg (38-50); PO2 VBG 51 mmHg; pH VBG 7.33 (7.36-7.41)
[2024-12-28] MEDS: methylPREDNISolone 125 MG/2 ML VIAL IV STA (17:23)
[2024-12-28] MEDS: ASPIRIN CHEW 324 MG PO STA (17:25)
[2024-12-28] MEDS: FUROSEMIDE INJ 20 MG/2 ML VIAL IV ONE ×2 (17:26→17:36)
[2024-12-28] MEDS: OPTIRAY 320 125ml IV ONE (18:15)
--- NOTE | 2024-12-28 18:53 | CT Scan Report ---
EXAM: CT Angiography Chest With Intravenous Contrast INDICATION: Atypical infection versus edema. TECHNIQUE: Axial computed tomographic angiography images of the chest with intravenous contrast. Sagittal and coronal reformatted images were created and reviewed. This CT exam was performed using one or more of the following dose reduction techniques: automated exposure control, adjustment of the mA and/or kV according to patient size, and/or use of iterative reconstruction technique. MIP reconstructed images were created and reviewed. CONTRAST: 115ml of Optiray 320 was administered intravenously. COMPARISON: No relevant prior studies available. FINDINGS: Pulmonary arteries: No abnormality noted. No pulmonary embolism. Aorta: Atherosclerotic aorta. Enhancement is not optimized to detect dissection. There is no inward displacement of intimal calcification to suggest dissection. Lungs and pleural spaces: Very small bilateral layering pleural effusions. Respiratory motion limits assessment of the pulmonary parenchyma. There is minimal dependent atelectasis in the lower and right upper lobes. There is poorly evaluated diffuse airway thickening. No bronchiectasis. There is generalized septal thickening. Heart: Cardiomegaly. No evidence of right heart strain or pericardial effusion. Coronary bypass change noted. Bones/joints: No acute or atypical chronic changes. Soft tissues: No abnormality noted. Lymph nodes: Shotty and mildly enlarged nodes present in the lateral aortic, pretracheal, subcarinal and bilateral hilar compartments measuring up to 2.3 cm short axis dimension. Liver: Cirrhotic liver. No visible mass. No ductal dilatation. IMPRESSION: 1. Suboptimal assessment due to respiratory motion. 2. No pulmonary embolus noted. 3. Suboptimally assessed pulmonary parenchyma with findings most concerning for CHF. Acute and/or chronic infectious bronchitis also considered. 4. Cirrhosis. ACT 112: N/A Electronically signed by Agnes Rodriguez 12-28-2024 6:50 PM
--- NOTE | 2024-12-28 21:08 | History & Physical Report ---
Date of Service December 28, 2024 Assessment & Plan (1) RSV (acute bronchiolitis due to respiratory syncytial virus): Plan: -positive on biofire -procal negative, no leukocytosis however tachycardia and tachypnea with source concerning for overlying CAP Plan: -duoneb q6hrs scheduled and prn -flutter valve, incentive spirometry -gentle diuresis, see below -given extent of respiratory illness, will start 5 day course of prednisone -start 5 day course of azithromycin and ceftriaxone (2) Pulmonary edema: Plan: -noted on imaging -CT chest and chest xray consistent with pulmonary edema, however, appears intravascuraly dry, no elevated JVP -BNP elevated as well -has history of HFrEF (EF 40%), however this does not appear to be decompensated HF, just pulmonary edema, perhaps flash pulmonary edema vs. alveolar edema from RSV Plan: -light diuresis with 20 IV daily lasix -check echocardiogram -if hypoxia worsens, may need Bipap for bilevel ventilation (3) Sepsis: Plan: -tachycardic, tachypneic with a source -concern for overlying CAP, see above -check lactic acid, blood cultures (4) CAP (community acquired pneumonia): Plan: -see above -check sputum culture, blood cultures x2 (5) CAD (coronary artery disease): Plan: -noted (6) Apical mural thrombus: Plan: -INR supratherapeutic Plan: -hold warfarin x1 day (7) Myocardial injury: Plan: -likely in setting of RSV Plan Feeding/fluids: regular Analgesia: tylenol Sedation: na Thromboprophylaxis: warfarin (on hold) Head up position: na Ulcer prophylaxis: protonix Glycemic control: na Spontaneous breathing trial: NC Bowel care: miralax prn Indwelling catheter removal: na Deescalation of antibiotics: ceftriaxone/azithromycin I spent a total of 80 minutes in direct patient care, including [id number]-[id number] time with the patient and/or family, reviewing medical records, ordering and reviewing diagnostic tests, and coordinating care with other healthcare providers. This time includes: history taking, physical examination, medical decision making, counseling, ECG interpretation, imaging interpretation, lab interpretation, orders, and education, excluding time spent in the performance of separately billed services. History of Present Illness Chief Complaint: -shortness of breath Primary Care Provider: Neo Han MD 77-year-old male with past medical history significant for CAD, type 2 diabetes, hypothyroidism, hyperlipidemia, polyneuropathy, history of CVA, hypertension, history of cirrhosis of liver, irritable bowel syndrome with both constipation and diarrhea, B12 deficiency, acquired cyst of kidney, BPH, cervical spondylosis, depression, primary insomnia who presents for SOB. Has a at home for the past 3 weeks who has been admitted with RSV, and for the past 2 weeks has been feeling SOB and having a worsening cough. It has gotten progressively worse so he felt he had to come in. He states that he has been having issues walking because of the shortness of breath. Otherwise, he states that he has had a productive cough for past 2 weeks as well. No tobacco use, no alcohol use, no drug use, full code. Allergies Allergy/AdvReac Type Severity Reaction Status Date / Time niacin Allergy Unknown ITCHY Verified 10/08/23 08:55 SPLOTCHY RASH Home Medications Medication Instructions Recorded Confirmed Type atorvastatin 40 mg tablet (Lipitor) 40 mg PO QAM 12/18/20 12/28/24 History citalopram 40 mg tablet (Celexa) 40 mg PO QAM 12/18/20 12/28/24 History enalapril maleate 2.5 mg tablet 2.5 mg PO BID 12/18/20 12/28/24 History (Vasotec) levothyroxine 25 mcg capsule 25 mcg PO QAM 12/18/20 12/28/24 History cyanocobalamin (vitamin B-12) 1,000 mcg PO DAILY 09/23/21 12/28/24 History 1,000 mcg tablet fenofibrate micronized 134 mg 134 mg PO QAM 09/23/21 12/28/24 History capsule semaglutide 0.25 mg or 0.5 mg (2 0.25 mg subcut Q7D 09/23/21 12/28/24 History mg/1.5 mL) subcutaneous pen injector (Ozempic) sildenafil 100 mg tablet (Viagra) 100 mg PO UD PRN Erectile 09/23/21 12/28/24 History Dysfunction pantoprazole 40 mg tablet,delayed 40 mg PO QAM #30 tabs 09/24/21 12/28/24 Rx release acetaminophen 325 mg tablet 650 mg (2 x 325 mg) PO Q6H PRN 01/12/22 12/28/24 Rx fever or pain #60 tabs psyllium husk 0.4 gram capsule 0.4 g PO DAILY #30 caps 01/12/22 12/28/24 Rx (Fiber (psyllium husk)) docusate sodium 100 mg capsule 100 mg PO BID PRN Constipation 12/31/22 12/28/24 History trazodone 50 mg tablet 50 mg PO HS PRN Sleep 12/31/22 12/28/24 History albuterol sulfate 90 mcg/actuation 2 puff inhalation Q6H PRN 12/28/24 12/28/24 History aerosol inhaler sob/wheezing amoxicillin 875 mg-potassium 1 tab PO BID 12/28/24 12/28/24 History clavulanate 125 mg tablet azithromycin 250 mg tablet 250 mg PO DIRECTED 12/28/24 12/28/24 History metoprolol succinate 50 mg 50 mg PO DAILY 12/28/24 12/28/24 History tablet,extended release 24 hr ondansetron HCl 4 mg tablet 4 mg PO Q8H PRN Nausea And Vomiting 12/28/24 12/28/24 History prednisone 10 mg tablet 10 mg PO UD 12/28/24 12/28/24 History warfarin 3 mg tablet 1 - 2 mg PO UD 12/28/24 12/28/24 History Past Med/Surg History Problem List CAP (community acquired pneumonia) Sepsis Pulmonary edema Myocardial injury RSV (acute bronchiolitis due to respiratory syncytial virus) Acute bronchospasm (Acute) Elevated troponin (Acute) Ischemic cardiomyopathy Non-ST elevation (NSTEMI) myocardial infarction Lab test negative for COVID-19 virus (Acute) Apical mural thrombus (Acute) Chest pain (Acute) Diverticulitis (Acute) Shoulder pain Carpal tunnel syndrome, left Cervical radiculopathy at C8 Chronic back pain HTN (hypertension) Lumbar radicular pain "off and on" CAD (coronary artery disease) 1994-CABG x2 2004-MAYLIN to circumflex 12/2022-MAYLIN @ND Diabetes weekly injection 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 ongoing H/O heart artery stent (Acute) 2004, [facility], x1 stent 12/2022, [facility], x1 stent; f/u [facility] Medical History Cirrhosis of liver currently stable, f/u specialist at [facility] Hx of myocardial infarction 2004, taken to [facility] for double bypass; f/u [facility] GERD (gastroesophageal reflux disease) Hypothyroidism Hx of long-term (current) use of anticoagulants eliquis and clopidogrel Cervical disc disorder at C5-C6 level with radiculopathy Lumbar back pain with radiculopathy affecting left lower extremity "off and on" High cholesterol High blood pressure Heart disease Foraminal stenosis of lumbar region L5-S1 DDD (degenerative disc disease), lumbar Rupture of hip abductor tendon no sx Surgical History History of esophagogastroduodenoscopy (EGD) Hx of colonoscopy Hx of tonsillectomy Hx of cardiac cath 2004, [facility], x1 stent 04/2023, having normal checkup w/echo and saw blood clot in the left ventricle, [facility], x1 stent; f/u [facility] S/P hernia surgery abdominal hernia operations x3 H/O heart bypass surgery 1994, double bypass, [facility]; f/u [facility] H/O shoulder replacement left H/O laminectomy ~age 67 Family History Other Diabetes Heart disease Social History Smoking Status: Former smoker Tobacco Type: Cigarettes Cigarettes Per Day: 2 packs; quit 20 yrs ago; Second Hand Exposure: No; Do You Dip or Chew Tobacco: No; Hx Alcohol Use: Yes Alcohol type: wine Hx Substance Use: No Preferred Language: Czech Communication Ability: Effective Planning Engineer Required: No Beliefs That Will Affect Care: None marital status: Current Living Situation: Spouse current occupational status: retired How many Children do You have: 2 Feels Safe at Home: Yes Assistive Devices: Glasses Review of Systems Review of Systems: CONSTITUTIONAL: Patient denies fevers, chills, sweats and weight changes. EYES: Patient denies any visual symptoms. EARS, NOSE, AND THROAT: No difficulties with hearing. No symptoms of rhinitis or sore throat. CARDIOVASCULAR: Patient denies chest pains, palpitations, orthopnea and paroxysmal nocturnal dyspnea. RESPIRATORY: SOB, cough GI: No nausea, vomiting, diarrhea, constipation, abdominal pain, hematochezia or melena. : No urinary hesitancy or dribbling. No nocturia or urinary frequency. No abnormal urethral discharge. MUSCULOSKELETAL: No myalgias or arthralgias. NEUROLOGIC: No chronic headaches, no seizures. Patient denies numbness, tingling or weakness. PSYCHIATRIC: Patient denies problems with mood disturbance. No problems with anxiety. ENDOCRINE: No excessive urination or excessive thirst. DERMATOLOGIC: Patient denies any rashes or skin changes. Physical Exam Physical Exam: Gen: A&O 3 appears uncomfortable HEENT: NCAT, EOMI, not icteric. External ears normal. No rhinorrhea. Moist mucous membranes. Neck: Supple, full range of motion, no observable masses, No meningeal sign. Lungs: ronchi, wheezing bilaterally CV: RRR, no edema. Abdomen: Soft, nondistended, No rebound tenderness. MSK: No joint swelling, no redness. Skin: No rashes, petechiae, lesions. Normal color per patient. Neuro: Normal Gait, Grossly intact. Psych: Appropriate for situation. Results & Data Results & Data Vital Signs (Past 12 Hours) Vital Signs Temp Pulse Pulse Resp BP BP Pulse Ox 12/28/24 20:23 95 H 12/28/24 19:34 99 H 28 H 130/86 95 12/28/24 16:39 100 H 32 H 110/89 94 12/28/24 16:16 100 H 12/28/24 15:54 103 H 24 122/84 94 12/28/24 15:00 97 H 30 H 134/85 95 12/28/24 14:40 36.8 C 107 H 22 109/83 96 O2 Del Method O2 Flow Rate 12/28/24 20:23 12/28/24 19:34 Nasal Cannula 2 12/28/24 16:39 12/28/24 16:16 12/28/24 15:54 12/28/24 15:00 12/28/24 14:40 Room Air Laboratory Results -personally reviewed, thrombocytopenia in setting of known cirrhosis, minimal leukocytosis, BUN/creatinine ratio and exam suggestive of intravascular depletion but pulmonary edema suggestive of fluid on lung Diagnostic Findings Chest X-Ray 12/28/24 15:14 Clinical History: Shortness of breath Technique: 2 frontal views of the chest were obtained Comparison is made to the prior examination dated 12/31/2022 Findings: There is new diffuse interstitial prominence, concerning for pulmonary edema. The heart is mildly enlarged. No pleural effusion or pneumothorax is seen. There is no definite pulmonary nodule. Sternal wires and mediastinal chris are present. There is a left shoulder arthroplasty, unchanged Impression: Cardiomegaly and pulmonary edema Electronically signed by Catalino Ryan 12-28-2024 4:52 PM Chest CTA 12/28/24 17:44 EXAM: CT Angiography Chest With Intravenous Contrast INDICATION: Atypical infection versus edema. TECHNIQUE: Axial computed tomographic angiography images of the chest with intravenous contrast. Sagittal and coronal reformatted images were created and reviewed. This CT exam was performed using one or more of the following dose reduction techniques: automated exposure control, adjustment of the mA and/or kV according to patient size, and/or use of iterative reconstruction technique. MIP reconstructed images were created and reviewed. CONTRAST: 115ml of Optiray 320 was administered intravenously. COMPARISON: No relevant prior studies available. FINDINGS: Pulmonary arteries: No abnormality noted. No pulmonary embolism. Aorta: Atherosclerotic aorta. Enhancement is not optimized to detect dissection. There is no inward displacement of intimal calcification to suggest dissection. Lungs and pleural spaces: Very small bilateral layering pleural effusions. Respiratory motion limits assessment of the pulmonary parenchyma. There is minimal dependent atelectasis in the lower and right upper lobes. There is poorly evaluated diffuse airway thickening. No bronchiectasis. There is generalized septal thickening. Heart: Cardiomegaly. No evidence of right heart strain or pericardial effusion. Coronary bypass change noted. Bones/joints: No acute or atypical chronic changes. Soft tissues: No abnormality noted. Lymph nodes: Shotty and mildly enlarged nodes present in the lateral aortic, pretracheal, subcarinal and bilateral hilar compartments measuring up to 2.3 cm short axis dimension. Liver: Cirrhotic liver. No visible mass. No ductal dilatation. IMPRESSION: 1. Suboptimal assessment due to respiratory motion. 2. No pulmonary embolus noted. 3. Suboptimally assessed pulmonary parenchyma with findings most concerning for CHF. Acute and/or chronic infectious bronchitis also considered. 4. Cirrhosis. ACT 112: N/A Electronically signed by Agnes Rodriguez 12-28-2024 6:50 PM -personally reviewed, pulmonary edema on chest xray and CT imaging, cannot rule out infectious process Code Status & VTE Plan VTE Prophylaxis Plan VTE Prophylaxis will be ordered: No Reason for no VTE drug order: Contraindicated (2) Pulmonary edema Chronicity: acute Qualified Code(s): J81.0 - Acute pulmonary edema (3) Sepsis Sepsis type: sepsis due to unspecified organism Sepsis acute organ dysfunction status: without acute organ dysfunction Qualified Code(s): A41.9 - Sepsis, unspecified organism (4) CAP (community acquired pneumonia) Laterality: unspecified laterality Qualified Code(s): J18.9 - Pneumonia, unspecified organism (5) CAD (coronary artery disease) Coronary Disease-Associated Artery/Lesion type: [place] artery [place] vs. transplanted heart: [place] heart Associated angina: without angina Qualified Code(s): I25.10 - Atherosclerotic heart disease of [place] coronary artery without angina pectoris
[2024-12-28] MEDS ORDERED: ACETAMINOPHEN 325 MG TAB PO PRN (21:14)
[2024-12-28] MEDS ORDERED: POLYETHYLENE (MIRALAX) 17 GM PACK PO PRN (21:14)
[2024-12-28] MEDS ORDERED: ALBUT/IPRATROP 3MG/0.5MG NEB 3 ML VIAL NEB PRN (21:14)
[2024-12-28] MEDS ORDERED: MELATONIN 3 MG TAB PO PRN (21:14)
[2024-12-28] MEDS ORDERED: AZITHROMYCIN 250 MG TAB PO SCH (21:15)
[2024-12-28] MEDS: ALBUT/IPRATROP 3MG/0.5MG NEB 3 ML VIAL NEB SCH (21:59)
[2024-12-28] MEDS: ENALAPRIL MALEATE 5 MG TAB PO SCH (22:14)
[2024-12-28] MEDS: DOXYCYCLINE HYCLATE 100 MG CAP PO SCH (22:14)
[2024-12-28] MEDS: cefTRIAXone SODIUM 2,000 MG/50 ML BAG IV SCH (22:15)
--- OUTSIDE RECORDS SUMMARY | 2024-12-29 02:44 | External Medical Summary ---
Author Name Unknown Address Unknown Organization [id number]:[facility] [place] - [address] [address] Laboratory Report Ordering Provider Test Date Status SORAIDA AUGUSTINE 12/19/2024 13:36:43 Final Observation Date Value Abnormality Reference (Units ) Status SYNC LEUKOCYTES IN BLOOD BY AUTOMATED COUNT 12/19/2024 13:36:43 6.56 4.00-10.80 (K/uL) Final Segs 12/19/2024 13:36:43 63.4 40.0-75.0 (%) Final Lymphs % 12/19/2024 13:36:43 23.6 18.0-42.0 (%) Final Monos 12/19/2024 13:36:43 7.5 1.0-11.0 (%) Final Eosinophils 12/19/2024 13:36:43 3.5 0.0-6.0 (%) Final Basos 12/19/2024 13:36:43 1.7 0.0-2.0 (%) Final Immature Granulocyte, Percent 12/19/2024 13:36:43 0.3 0.0-2.0 (%) Final Absolute Segs 12/19/2024 13:36:43 4.16 1.80-7.70 (K/uL) Final Lymphs, absolute 12/19/2024 13:36:43 1.55 1.00-4.80 (K/ul) Final Monos, Abs 12/19/2024 13:36:43 0.49 0.00-1.10 (K/uL) Final Eos, Abs 12/19/2024 13:36:43 0.23 0.00-0.70 (K/uL) Final Basos, Abs 12/19/2024 13:36:43 0.11 0.00-0.20 (K/uL) Final Immature Granulocytes, Number 12/19/2024 13:36:43 0.02 0.00-0.20 (K/uL) Final Performing Location [facility] [place] - [facility] [place] [id number]
--- OUTSIDE RECORDS SUMMARY | 2024-12-29 02:44 | External Medical Summary | Summary of Care ---
Author Name Unknown Organization [facility] Address [address] [place] [address] Phone [phone] Care Team Providers Care Executive Admin Name Role Phone Neo Han MD Primary Care Provide r Reason for Visit * Reason Comments Re-Check Encounter Details Date Type Department Care Team (Latest Contact Info) Description 12/19/2024 1:00 PM EST Office Visit Family Medicine [address] [phone] Mukesh Hernández [address] [place] [address] Viral illness*; Type 2 diabetes mellitus with polyneuropathy (HCC); Cirrhosis of liver without ascites, unspecified hepatic cirrhosis type (HCC); HTN, goal below 140/90; Systolic congestive heart failure, unspecified HF chronicity (HCC) Allergies Active Allergy Reactions Criticality Noted Date Comments Niacin 01/07/2022 Other reaction(s): ITCHY SPLOTCHY RASH Niacin Er (Antihyperlipidemic) Flushing 09/04/2010 documented as of this encounter (statuses as of 12/19/2024) Medications FIBER FORMULA PO CAPS Take 1 Cap by mouth daily. Active LANCETS MISCIndications: Diabetes mellitus type 2, diet-controlled (HCC) Use once daily as directed Dx 250.00 1 Box 5 07/24/20 13 Active Cyanocobalamin (VITAMIN B-12) 1000 MCG Tablet Take 1 Tablet by mouth in the morning. 05/16/20 19 Active Blood Glucose Monitoring Suppl (ONETOUCH VERIO) w/Device KIT Test daily E11.9 1 Kit 04/16/20 20 Active OneTouch UltraSoft LancetsIndicatio ns:Type 2 diabetes mellitus with hemoglobin A1c goal of less than 8.0% (HCC) Test daily. E11.9 100 Each 1 10/02/20 21 Active Acetaminophen 325 MG Oral Tablet (Tylenol) Take 2 Tablets by mouth every 6 hours as needed. 01/13/20 22 Active Advanced Probiotic Oral Capsule Take by mouth 2 Capsules daily . For 10 days Active FK [employer] game [employer] In Vitro Strip (Glucose Blood)Indication s:Type 2 diabetes mellitus with hemoglobin A1c goal of less than 8.0% (HCC) Test daily E11.9 100 Strip 1 07/20/20 22 Active Fenofibrate Micronized 134 MG Oral CapsuleIndicatio ns:Lipoprotein deficiency Take 1 Capsule by mouth in the morning. 90 Capsule 1 06/08/20 24 Active Metoprolol Succinate ER 50 MG Oral Tablet Extended Release 24 Hour (toPROL XL) Take 1 Tablet by mouth in the morning. 90 Tablet 3 06/12/20 24 Active Clopidogrel Bisulfate 75 MG Oral Tablet (pLAVix) Take 1 Tablet by mouth. In the morning. 06/12/20 24 Active Atorvastatin Calcium 40 MG Oral Tablet (Lipitor)Indicat ions:Dyslipidemi a, goal LDL below 100 TAKE ONE TABLET DAILY 90 Tablet 2 06/16/20 24 Active Citalopram Hydrobromide 40 MG Oral Tablet (CeleXA)Indicati ons:Major depressive disorder, recurrent, in partial remission (HCC) TAKE 1 TABLET BY MOUTH IN THE MORNING 90 Tablet 3 06/16/20 24 Active Pantoprazole Sodium 40 MG Oral Tablet Delayed Release (Protonix) TAKE ONE TABLET BY MOUTH EVERY MORNING 90 Tablet 1 06/27/20 24 Active Ozempic (0.25 or 0.5 MG/DOSE) 2 MG/3ML Solution Pen-injector (Semaglutide(0.2 5 or 0.5MG/DOS)) Inject 0.5 mg under the skin once a week. 3 mL 5 07/06/20 24 Active Enalapril Maleate 2.5 MG Oral Tablet (Vasotec) TAKE ONE TABLET TWICE DAILY 180 Tablet 3 07/07/20 24 Active Warfarin Sodium 3 MG Oral Tablet (Coumadin) Take 1-2 tablets by mouth daily as directed by anticoagulation clinic 60 Tablet 5 08/07/20 24 Active traZODone HCl 50 MG Oral Tablet (Desyrel)Indicat ions:Primary insomnia Take 1 Tablet by mouth at bedtime. 90 Tablet 1 10/17/20 24 Active Sildenafil Citrate 100 MG Oral Tablet (Viagra)Indicati ons:Impotence of organic origin One tablet as needed for erectile dysfunction 6 Tablet 6 11/02/19 25 Active Levothyroxine Sodium 25 MCG Oral Tablet (Levoxyl)Indicat ions:Hypothyroid ism Take 1 Tablet by mouth in the morning. (at least 30 min prior to breakfast or other meds). 90 Tablet 1 12/11/19 25 Active Ondansetron HCl 4 MG Oral TabletIndication s:Viral illness Take 1 Tablet by mouth every 8 hours as needed for Nausea. 21 Tablet 12/20/19 25 Active documented as of this encounter (statuses as of 12/19/2024) Active Problems Problem Noted Date Diagnosed Date Chronic ischemic heart disease 02/04/2024 HTN, goal below 130/80 02/04/2024 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 (TAYLOR) 01/11/2023 Systolic congestive heart failure 01/11/2023 S/P drug eluting coronary stent placement 2022 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 Coronary artery disease invo lving mentasta coronary artery of mentasta heart without angina pectoris 01/11/2023 Incisional hernia, without obstruction or gangre ne 02/21/2021 Type 2 diabetes mellitus with polyneuropathy Cirrhosis of liver 09/26/2019 B12 deficiency 05/16/2019 Major depressive disorder, recurrent, in partial remission 11/10/2018 Primary insomnia 11/10/2018 Irritable bowel syndrome wit h both constipation and diarrhea 10/20/2016 Type 2 diabetes mellitus wit h hemoglobin A1c goal of less than 8.0% 07/24/2013 Overview (02/13/2016): ICD-10 update of inactive term BPH without obstruction/lower urinary tract symp toms 02/26/2010 DYSLIPIDEMIA, GOAL LDL BELOW 100 10/07/2009 Overview (10/07/2009): Per Lipid Taxonomy. HTN, GOAL BELOW 140/90 09/23/2009 Overview (09/23/2009): Modified per HTN protocol #16. CEREBROVASCULAR DZ, POST-STROKE 01/29/2009 Overview (01/31/2009): Modified per CVA protocol #8 LOW HDL 04/14/2008 Cervical spondylosis 05/17/2006 Brachial neuritis 05/17/2006 CERVICAL DISC DISPLACMNT 03/03/2006 Cyst of kidney, acquired 10/09/2003 Internal hemorrhoids Hypothyroidism DIVERTICULITIS OF COLON Disc disorder of lumbar region Overview (01/24/2009): L5-S1 Colon polyps documented as of this encounter (statuses as of 12/19/2024) Resolved Problems Problem Noted Date Diagnosed Date Resolved Date Thrombocytopenia 01/14/2022 01/14/2022 Obesity, Class II, BMI 35-39 .9, isolated (see actual BMI) 03/31/2010 05/20/2017 Overview (03/31/2010): Per Obesity Protocol, #19 HTN, GOAL BELOW 130/80 09/09/200909/23 Overview (09/23/2009): Modified per HTN protocol #16. Ill-defined cerebrovascular disease 01/30/2009 01/30/2009 Major depressive disorder 12/14/2007 Overview (08/10/2017): ICD-10 update of inactive term Chest pain 12/07/2007 12/05/2014 Cerebrovascular event, ill-d efined, within last 8 weeks 12/06/2007 01/31/2009 Overview (01/31/2009): Modified per CVA protocol #8 Mixed dyslipidemia 12/06/2007 9 Overview (10/07/2009): Per Lipid Taxonomy. ADVANCE DIRECTIVE INFORMATION 01/10/2007 08/21/2024 Overview (01/10/2007): No, Advance Directive brochure given to patient at prior appointment. Cervicalgia 05/17/2006 05/08/2015 Tobacco use disorder 08/10/2003 009 Secondary thrombocytopenia 11/20/1999 0 05/02/2018 Overview (01/21/2016): ICD-10 update of inactive term CHR ISCHEMIC HRT DIS NOS HYPERTENSION NOS 09/09/2009 Overview (09/09/2009): Modified per HTN protocol #16. documented as of this encounter (statuses as of 12/19/2024) Immunizations Name Administration Dates Next Due COVID-19 mRNA, LNP-s, No Pre serve, 2-Dose Series (Coridea) 08/12/2021,12/28/2020,12/02/2020 COVID-19, MRNA-LNP, PF, 30 M CG/0.3 mL, 12 YRS AND ABOVE, IM (PFIZER-Comirnaty) 07/30/2023 Covid-19, Mrna, Lnp-s, Pf, B ivalent, 30 Mcg, IM, 12 yrs and above (Pfizer) 07/21/2022 Pneumococcal Conjugate Vacc, 13 Valent (Prevnar) 05/07/2017 Pneumococcal Polysaccharide PPV23 (Pneumovax) 07/16/2020 TD - Tetanus/Diptheria (ADULT) 01/10/2007 TDAP (age 10 and older)(Boostrix) 05/12/2019 documented as of this encounter Social History Tobacco Use Types Packs/Day Years Used Date Smoking Tobacco: Former Cigarettes 2 40 0 03/24/1965 - 03/24/2005 Smokeless Tobacco: Never Tobacco Cessation:Counseling Given: Not Answered Alcohol Use Standard Drinks/Week Comments Yes 0 (1 standard drink = 0.6 oz pure alcohol) occasionally beer lite rarely Jj Membreno PHQ-2 Answer Date Recorded PHQ Adult Total Score 0 02/21/2021 Hunger Vital Sign Answer Date Recorded Worried About Running Out of Food in the Last Ye ar Never true 12/19/2019 Ran Out of Food in the Last Year Never true 12/19/2019 Sex and Gender Information Value Date Recorded Sex Assigned at Not on file Legal Sex Male 5:22 AM EST Gender Identity Not on file Sexual Orientation Not on file 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 !! Not on file Not on file Not on file documented as of this encounter Last Filed Vital Signs Vital Sign Reading Time Taken Comments Blood Pressure 122/76 12/19/2024 1:01 PM EST Pulse 80 12/19/2024 1:01 PM EST Temperature 37.1 C (98.8 F) 12/19/2024 1:01 PM ES T Respiratory Rate 16 12/19/2024 1:01 PM EST Oxygen Saturation 91% 12/19/2024 1:01 PM EST Inhaled Oxygen Concentration - - Weight 89.4 kg (197 lb) 12/19/2024 1:01 PM EST Height - - Body Mass Index 30.85 05/26/2024 12:09 PM EDT documented in this encounter Progress Notes * Mukesh Hernández CRNP - 12/19/2024 1:06 PM EST Images from the original note were not included. History of Present Illness Juanito Yoon is a 79 year old male that presents for Re-Check Concerns today for N/V/D x 2.5 weeks. Symptoms seems to be getting better.Still feeling pretty nauseated. was ill with norovirus. Has been using Immodium OTC. Drinking water okay. Decreased appetite. Denies any hematuria or blood in vomit. Denies any abdominal pain. Denies any cough, congestion, ear pain. HTN/CHF/CAD is currently on enalapril, metoprolol, Anticoagulated on Warfarin for hx of LV thrombus. BP good today. Denies any ross, sob, cp. HLD is on Atorvastatin. Last LDL was in Jun was 47 / well controlled. Follows with cardiology / has an appointment next week. Has been saw by heme/onc. DM II is on Ozempic. Checking BSG at home and has been running 100's-120's. Liver cirrhosis/TAYLOR following with GI. Has follow up in a few weeks. Patient Active Problem List Diagnosis Cyst of kidney, acquired Internal hemorrhoids Hypothyroidism DIVERTICULITIS OF COLON CERVICAL DISC DISPLACMNT Cervical spondylosis Brachial neuritis LOW HDL Disc disorder of lumbar region CEREBROVASCULAR DZ, POST-STROKE HTN, GOAL BELOW 140/90 DYSLIPIDEMIA, GOAL LDL BELOW 100 BPH without obstruction/lower urinary tract symptoms Colon polyps Type 2 diabetes mellitus with hemoglobin A1c goal of less than 8.0% (HCC) Irritable bowel syndrome with both constipation and diarrhea Major depressive disorder, recurrent, in partial remission (HCC) Primary insomnia B12 deficiency Cirrhosis of liver (HCC) Type 2 diabetes mellitus with polyneuropathy (HCC) Incisional hernia, without obstruction or gangrene Liver cirrhosis secondary to nonalcoholic steatohepatitis (TAYLOR) (HCC) Systolic congestive heart failure (HCC) S/P drug eluting coronary stent placement Apical mural thrombus Coronary artery disease involving mentasta coronary artery of mentasta heart without angina pectoris Chronic ischemic heart disease HTN, goal below 130/80 Frequent PVCs Current Outpatient Medications Medication Sig Dispense Refill FIBER FORMULA PO CAPS Take 1 Cap by mouth daily. LANCETS MISC Use once daily as directed Dx 250.00 1 Box 5 Cyanocobalamin (VITAMIN B-12) 1000 MCG Tablet Take 1 Tablet by mouth in the morning. Blood Glucose Monitoring Suppl (Hemosphere VERIO) w/Device KIT Test daily E11.9 1 Kit 0 FK BiotecnologiaTouch UltraSoft Lancets Test daily. E11.9 100 Each 1 Acetaminophen 325 MG Oral Tablet (Tylenol) Take 2 Tablets by mouth every 6 hours as needed. Advanced Probiotic Oral Capsule Take by mouth 2 Capsules daily . For 10 days [employer]book[employer] In Vitro Strip (Glucose Blood) Test daily E11.9 100 Strip 1 Fenofibrate Micronized 134 MG Oral Capsule Take 1 Capsule by mouth in the morning. 90 Capsule 1 Metoprolol Succinate ER 50 MG Oral Tablet Extended Release 24 Hour (toPROL XL) Take 1 Tablet by mouth in the morning. 90 Tablet 3 Clopidogrel Bisulfate 75 MG Oral Tablet (pLAVix) Take 1 Tablet by mouth. In the morning. Atorvastatin Calcium 40 MG Oral Tablet (Lipitor) TAKE ONE TABLET DAILY 90 Tablet 2 Citalopram Hydrobromide 40 MG Oral Tablet (CeleXA) TAKE 1 TABLET BY MOUTH IN THE MORNING 90 Tablet 3 Pantoprazole Sodium 40 MG Oral Tablet Delayed Release (Protonix) TAKE ONE TABLET BY MOUTH EVERY MORNING 90 Tablet 1 Ozempic (0.25 or 0.5 MG/DOSE) 2 MG/3ML Solution Pen-injector (Semaglutide(0.25 or 0.5MG/DOS)) Inject 0.5 mg under the skin once a week. 3 mL 5 Enalapril Maleate 2.5 MG Oral Tablet (Vasotec) TAKE ONE TABLET TWICE DAILY 180 Tablet 3 Warfarin Sodium 3 MG Oral Tablet (Coumadin) Take 1-2 tablets by mouth daily as directed by anticoagulation clinic 60 Tablet 5 traZODone HCl 50 MG Oral Tablet (Desyrel) Take 1 Tablet by mouth at bedtime. 90 Tablet 1 Sildenafil Citrate 100 MG Oral Tablet (Viagra) One tablet as needed for erectile dysfunction 6 Tablet 6 Levothyroxine Sodium 25 MCG Oral Tablet (Levoxyl) Take 1 Tablet by mouth in the morning. (at least 30 min prior to breakfast or other meds). 90 Tablet 1 No current facility-administered medications for this visit. Review of patient's allergies indicates: Allergen Reactions Niacin Other reaction(s): ITCHY SPLOTCHY RASH Niaspan [Niacin Er (Antihyperlipidemic)] Flushing Past Medical History: Diagnosis Date BPH without obstruction/lower urinary tract symptoms Cerebrovascular event, ill-defined, within last 8 weeks 12/06/2007 Chronic ischemic heart disease Colon polyps Coronary atherosclerosis COVID-19 05/22/2022 Depressive disorder, not elsewhere classified 12/14/2007 Disc disorder of lumbar region L5-S1 HTN, goal below 140/90 HTN, goal to be determined LOW HDL 04/14/2008 Mixed dyslipidemia 12/06/2007 Old OR (myocardial infarction) 10/18/1994 OTHER OR, Angina, Diverticulosis, Hiatal hernia, Hypertension, Hypothyroidism, CVA, Salivary gland stone right submax gland Varicella without complication age 12 Past Surgical History: Procedure Laterality Date [place] ANGIOPLASTY;SINGLE 03/24/2005 with stents COLONOSCOPY, DIAGNOSTIC (RECTUM) 1994 COLONOSCOPY, DIAGNOSTIC (RECTUM) 02/18/2007 Dr. Peña COLONOSCOPY, DIAGNOSTIC (RECTUM) 06/12/2013 COLONOSCOPY FLEXIBLE PROXIMAL DIAGNOSTIC performed by Sandoval Lama DO at ENDOSCOPY [facility] COLONOSCOPY, DIAGNOSTIC (RECTUM) 11/22/2015 diverticulosis, normal bx/COLONOSCOPY FLEXIBLE PROXIMAL DIAGNOSTIC performed by Brant Zhao MDat ENDOSCOPY [facility] COLONOSCOPY, DIAGNOSTIC (RECTUM) 10/26/2019 inflammation on bx, diverticulosis/COLONOSCOPY FLEXIBLE PROXIMAL DIAGNOSTIC performed by Brant Zhao MD at ENDOSCOPY [facility] CORONARY ARTERY BYPASS, SINGLE [address] Skinner EGD, FLEXIBLE, DIAGNOSTIC 10/26/2019 reflux esophagitis, hiatal hernia, gastritis, repeat 2 mo/ESOPHAGOGASTRODUODENOSCOPY (EGD), FLEXIBLE, TRANSORAL, DIAGNOSTIC performed by Brant Zhao MD at ENDOSCOPY [facility] EGD, FLEXIBLE, DIAGNOSTIC 04/22/2020 hiatal hernia/biopsies normal/ESOPHAGOGASTRODUODENOSCOPY (EGD), FLEXIBLE, TRANSORAL, DIAGNOSTIC performed by Brant Zhao MD at ENDOSCOPY [facility] EGD, FLEXIBLE, DIAGNOSTIC 09/24/2021 normal bx / INPT [facility] EGD, FLEXIBLE, DIAGNOSTIC N/A 10/08/2023 portal hypertensive gastropathy/recall 2 years/EGD/MN INJECT DX/THER SUBSTANCE INTERLAMINAR LUMBAR/SACRAL W IMAGE GUIDE 12/14/2016 INJECTION SPINE LUMBAR OR SACRAL performed by Ander Boland DO at OR [facility] INJECTION LUMBAR/SACRAL 08/05/2016 INJECTION SPINE LUMBAR OR SACRAL performed by Ander Boland DO at OR [facility] REMOVAL OF PROSTATE (TURP) 03/12/2010 TRANSURETHRAL RESECTION PROSTATE ELECTROSURGICAL performed by THOMAS DEWEY at [facility] REMOVAL OF SALIVARY STONE, SIMPLE removed right submax gland REMOVAL OF TONSILS, UNDER AGE 12 REMOVE CATARACT, INSERT LENS PROSTH 07/31,08/14/11 bilateral REMOVE LUMBAR SPINE LAMINA, 1-2 05/23/2018 Dr. Sibley REPAIR INITIAL INCISIONAL OR VENTRAL HERNIA; REDUCIBLE 1997 Ventral hernia repair REPAIR RECURRENT INCISIONAL HERNIA 2001 Dr. Paredes REVERSE TOTAL SHOULDER ARTHROPLASTY Left 12/06/2015 Dr. 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 Operations and Intelligence. Blood Transfusions Not Asked Caffeine Concern Yes Comment: 1 cup coffee in AM Occupational Exposure Not Asked Hobby Hazards Yes Comment: sports, Antiques, collections, Sleep Concern Not Asked Stress Concern Yes Comment: son's illness/ 1997, 's illness, financial difficulties Weight Concern Not Asked Special Diet Not Asked Back Care Not Asked Exercise Not Asked Bike Helmet Not Asked Seat Belt Yes Self-Exams Not Asked Social History Narrative Patient at low risk for Hep C per 1997 screening by amos showing no high risk blood or sex exposure, drug use or previous elevated liver tests. Td 1992 Hep B series no flu no pneumovax no Social Needs Financial Resource Strain: Not on file Food Insecurity: No Food Insecurity (12/19/2019) Hunger Vital Sign Worried About Running Out of Food in the Last Year: Never true Ran Out of Food in the Last Year: Never true Transportation Needs: Not on file Social Connections: Not on file Housing Stability: Not on file Physical Exam Vitals: 12/19/24 1301 Temp: 98.8 F (37.1 C) Pulse: 80 Resp: 16 SpO2: 91% BP: 122/76 General: A&Ox3 and no distress Heart: regular rate & rhythm, no murmur, no gallops, S-1 normal, and S-2 normal Lungs: normal respiratory rate and rhythm, lungs clear to auscultation Abdomen: abdomen soft, non-tender, normal bowel sounds Extremities: no BLE edema Skin: warm and dry I have reviewed the following results: BMP results Recent Labs Units 07/04/24 0840 02/04/24 1620 10/04/23 0939 SODIUM - [facility] mmol/L 140 140 140 POTASSIUM - [facility] mmol/L 4.2 4.4 4.3 CHLORIDE - [facility] mmol/L 105 103 103 CO2 - [facility] mmol/L 22 26 25 CREATININE - [facility] mg/dL 0.9 1.1 0.9 BUN - [facility] mg/dL 17 17 20 Lipid panel results Recent Labs Units 07/04/24 0840 05/11/23 1627 CHOLESTEROL - [facility] mg/dL 117 116 HDL CHOLESTEROL - [facility] mg/dL 32* 40 TRIGLYCERIDES - [facility] mg/dL 259* 241* CBC results Recent Labs Units 07/04/24 0840 02/04/24 1620 10/04/23 0939 WBC K/uL 5.61 8.15 6.39 HGB g/dL 15.0 14.6 14.8 HCT % 44.3 44.6 45.3 PLT K/uL 147 158 133* HbA1c results Recent Labs Units 07/04/24 0840 05/11/23 1627 01/11/23 1256 HEMOGLOBIN A1C - [facility] % 6.7* 5.9* 6.1* Assessment and Plan Viral illness - recommend sports drinks for electrolytes given recent V/D - continue OTC immodium as needed for diarrhea - bland diet and advance as tolerated - Ondansetron HCl 4 MG Oral Tablet; Take 1 Tablet by mouth every 8 hours as needed for Nausea. Type 2 diabetes mellitus with polyneuropathy (HCC) - will update some labs - COMPREHENSIVE METABOLIC PANEL; Future - CBC WITH WBC DIFFERENTIAL AND ANEMIA REFLEX WORKUP; Future - HEMOGLOBIN A1C; Future Cirrhosis of liver without ascites, unspecified hepatic cirrhosis type (HCC) - will update LFT's / follow up with GI as scheduled HTN, goal below 140/90 - BP good today / no changes Systolic congestive heart failure, unspecified HF chronicity (HCC) - asymptomatic / euvolemic / follow up with cardiology as scheduled Wrap-Up Follow-up: Return in about 6 months (around 06/21/2025). | Check-out note: As scheduled with Dr. Han in Jun or sooner as needed Time: I spent a total of 30-39 minutes (exact time 30 mins) on the date of service in preparation, delivery, and documentation of the care provided to Juanito Yoon excluding any time spent in the performance of separately billed services. Cosigned by Makenna Vasquez MD at 12/19/2024 1:57 PM EST documented in this encounter Nursing Notes * Juanita Lynn LPN - 12/19/2024 12:59 PM EST 6 month recheck Vomiting, nausea, diarrhea, aches, no energy. Going on for 3 weeks. was sick with it. documented in this encounter Plan of Treatment Upcoming Encounters Date Type Department Care Team (Late st Contact Info) Description 12/26/2024 10:00 AM EDT Office Visit Card[facility], [facility] [address] [facility] [place] [address] Nellie Frausto PA-C [address] [facility] [place] [address] 01/04/2025 2:00 PM EDT Office Visit Gastroenterology, [facility] [address] [facility] [place] [address] Berenice Montano CRNP [address] [facility] [place] [address] 01/11/2025 9:50 AM EDT Anticoagulation Pharmacy, [address] [place] [address] [place] [address] 07/17/2025 1:40 PM EDT Office Visit Family Medicine [address] [place] [phone] Neo Han MD [address] [place] [address] [place] [phone] Pending Results Name Type Priority Associated Diagnoses Date /Time COMPREHENSIVE METABOLIC PANEL Lab Routine Type 2 diabetes mellitus with polyneuropathy (HCC) 12/19/2024 1:36 PM EST CBC WITH WBC DIFFERENTIAL AND ANEMIA REFLEX WORKUP Lab Routine Type 2 diabetes mellitus with polyneuropathy (HCC) 12/19/2024 1:36 PM EST HEMOGLOBIN A1C Lab Routine Type 2 diabetes mellitus with polyneuropathy (HCC) 12/19/2024 1:36 PM EST Scheduled Orders Name Type Priority Associated Diagnoses Orde r Schedule COMPREHENSIVE METABOLIC PANEL Lab Routine Type 2 diabetes mellitus with polyneuropathy (HCC) Cirrhosis of liver without ascites, unspecified hepatic cirrhosis type (HCC) HTN, goal below 140/90 Expected: 12/19/2024 (Approximate), Expires: 12/19/2025 CBC WITH WBC DIFFERENTIAL AND ANEMIA REFLEX WORKUP Lab Routine Type 2 diabetes mellitus with polyneuropathy (HCC) Expected: 12/19/2024 (Approximate), Expires: 12/19/2025 HEMOGLOBIN A1C Lab Routine Type 2 diabetes mellitus with polyneuropathy (HCC) Expected: 12/19/2024 (Approximate), Expires: 01/19/2026 Scheduled Procedures Name Priority Associated Diagnoses Date/Ti me ESOPHAGOGASTRODUODENOSCOPY ( EGD), FLEXIBLE, TRANSORAL, DIAGNOSTIC Recall Portal hypertensive gastropathy (HCC) Health Maintenance Due Date Last Done Comments Zoster Vaccines (1 of 2) 1997 Hepatitis B Vaccine (1 of 3 - Risk 3-dose series) 2007 Adult Wellness Visit 05/07/2018 05/07/2017 Depression Monitoring 02/21/2022 02/21/2021 Diabetic Foot Exam 05/11/2024 05/11/2023, 0 07/16/2020, 05/12/2019, Additional history exists COVID-19 Vaccine ( season) 2024 07/30/2023, 07/21/2022, 08/12/2021, Additional history exists Influenza Vaccine (FLU shot) (#1) 2024 08/04/2005 Colonoscopy 10/26/2024 10/26/2019, 01/0 06/2020, 11/22/2015, Additional history exists HbA1c 01/01/2025 07/04/2024, 04/18, 01/11/2023, Additional history exists Diabetic Eye Exam 04/26/2025 04/26/2024, , 11/12/2023, Additional history exists Albumin/Creatinine Ratio 07/04/2025 024, 05/11/2023, 05/20/2022, Additional history exists GFR 07/04/2025 07/04/2024, 0406/2024, 10/04/2023, Additional history exists TSH 07/04/2025 07/04/2024, 04/18, 05/20/2022, Additional history exists DTap/Tdap Vaccines (2 - Td or Tdap) 05/12/2029 05/12/2019, 01/10/2007, 10/18/1992 RETIRED - COLONOSCOPY-EVERY 5 YRS AGES 18-100 Discontinued 10/26/2019, 10/26/2019, 11/22/2015, Additional history exists Pneumococcal Vaccine: 50+ Years Completed 07/16/2020, 05/07/2017, 08/04/2005 HPV (Gardasil) Vaccine Aged Out No lo nger eligible based on patient's age to complete this topic MENINGOCOCCAL (MENACTRA/MENVEO) Aged Out No longer eligible based on patient's age to complete this topic Meningitis B Vaccine (Bexsero/Trumemba) Aged Out No longer eligible based on patient's age to complete this topic documented as of this encounter Medical Devices Not on filedocumented as of this encounter Visit Diagnoses Diagnosis Viral illness- Primary Unspecified viral infection, in conditions classified elsewhere and of unspecified site Type 2 diabetes mellitus with polyneuropathy (HCC) Type II or unspecified type diabetes mellitus with neurological manifestations, not stated as uncontrolled Cirrhosis of liver without ascites, unspecified hepatic cirrhosis type (HCC) HTN, goal below 140/90 Unspecified essential hypertension Systolic congestive heart failure, unspecified HF chronicity (HCC) documented in this encounter Advance Directives * Full Code (Latest Code Status on File) Date Activated Date Inactivated Comments 03/12/2010 12:37 PM 03/13/2010 8:19 PM This order reflects the patients wishes and were consensually agreed upon. * Full Code Date Activated Date Inactivated Comments 03/12/2010 9:15 AM 03/12/2010 12:37 PM This order reflects the patients wishes and were consensually agreed upon. * Full Code Date Activated Date Inactivated Comments 12/06/2007 2:54 PM 12/14/2007 5:34 PM Care Teams Executive Admin Relationship Specialty Start Date End Date Neo Han MD [address] [place] [address] [place] [address] PCP - General Family Medicine 07/19/13 documented as of this encounter"
--- OUTSIDE RECORDS SUMMARY | 2024-12-29 02:44 | External Medical Summary ---
Author Name Unknown Address Unknown Organization [id number]:[facility] [place] [address] [facility] [address] Laboratory Report Ordering Provider Test Date Status SORAIDA AUGUSTINE 12/19/2024 13:36:43 Final Observation Date Value Abnormality Reference (Units ) Status BUN 12/19/2024 13:36:43 22 Above high normal 6-20 (mg/dL) Final Creatinine 12/19/2024 13:36:43 1.0 0.6-1.2 (mg/dL) Final Glomerular filtration rate/1.73 sq M.predicted [Volume Rate/Area] in Serum, Plasma or Blood by Creatinine-based formula (CKD-EPI) 12/19/2024 13:36:43 82 >=60 (mL/min) Final eGFR is calculated based on the CKD-EPI 2020 equation. Sodium 12/19/2024 13:36:43 142 135-146 (m mol/L) Final Potassium 12/19/2024 13:36:43 4.3 3.5-5.1 (m mol/L) Final Cl 12/19/2024 13:36:43 107 98-107 (mm ol/L) Final CO2 12/19/2024 13:36:43 21 Below low normal 22- 32 (mmol/L) Final Anion gap 12/19/2024 13:36:43 14 7-15 (mmol /L) Final Glucose 12/19/2024 13:36:43 97 70-120 (mg /dL) Final Albumin 12/19/2024 13:36:43 4.3 3.8-5.0 (g /dL) Final AST (Aspartate aminotransferase) 12/19/2024 13:36:43 20 10-50 (U/L) Fin al Alk Phos 12/19/2024 13:36:43 66 35-130 (U/ L) Final Bilirubin, Total 12/19/2024 13:36:43 0.6 <=1 .2 (mg/dL) Final Calcium 12/19/2024 13:36:43 9.1 8.4-10.2 ( mg/dL) Final Protein 12/19/2024 13:36:43 6.4 6.0-8.3 (g /dL) Final ALT (Alanine aminotransferase) 12/19/2024 13:36:43 10 10-50 (U/L) Talon spencer Performing Location [facility] [place] - [address] [facility] [address]
--- OUTSIDE RECORDS SUMMARY | 2024-12-29 02:44 | External Medical Summary | Summary of Care ---
Author Name Unknown Organization [facility] Address [address] [place] [address] Phone [phone] Care Team Providers Care Car Repossessor Name Role Phone Neo Han MD Primary Care Provide r Encounter Details Date Type Department Care Team (Late st Contact Info) Description 12/27/2024 Telephone Family Medicine [address] [phone] Neo Han MD [address] [place] [phone] Allergies Active Allergy Reactions Criticality Noted Date Comments Niacin 01/07/2022 Other reaction(s): ITCHY SPLOTCHY RASH Niacin Er (Antihyperlipidemic) [place] 09/04/2010 documented as of this encounter (statuses as of 12/27/2024) Medications FIBER FORMULA PO CAPS Take 1 [...] Capsules daily . For 10 days Active BarringtonTosebas Leachben In Vitro Strip (Glucose Blood)Indication s:Type 2 [...] as of this encounter (statuses as of 12/27/2024) Active Problems Problem Noted Date Diagnosed Date Chronic ischemic heart disease 02/04/2024 HTN, goal below 130/80 02/04/2024 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 (TAYLOR) 01/11/2023 Systolic congestive heart failure 01/11/2023 S/P drug eluting coronary stent placement 2022 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 Coronary artery disease invo lving [place] coronary artery of [place] heart without angina pectoris 01/11/2023 Incisional hernia, [...] as of this encounter (statuses as of 12/27/2024) Resolved Problems Problem Noted Date Diagnosed Date [...] as of this encounter (statuses as of 12/27/2024) Immunizations Name Administration Dates Next Due COVID-19 mRNA, LNP-s, No Pre serve, 2-Dose Series (Pfizer) 08/12/2021,12/28/2020,12/02/2020 COVID-19, MRNA-LNP, PF, 30 M CG/0.3 mL, 12 YRS AND ABOVE, IM (Global Velocity-Comirnaty) 07/30/2023 Covid-19, Mrna, Lnp-s, Pf, B ivalent, 30 Mcg, IM, 12 yrs and above (Pfizer) 07/21/2022 Pneumococcal Conjugate Vacc, 13 Valent (Prevnar) 05/07/2017 Pneumococcal Polysaccharide PPV23 (Pneumovax) 07/16/2020,08/04/2005 Seasonal Influenza Vac., MDV , IM, 0.5 mL (Fluzone) 08/04/2005 TD - Tetanus/Diptheria (ADULT) 01/10/2007,1992 TDAP (age 10 and older)(Boostrix) 05/12/2019 documented as of this encounter Social History Tobacco Use Types Packs/Day Years Used Date Smoking Tobacco: Former Cigarettes 2 40 0 03/24/1965 - 03/24/2005 Smokeless Tobacco: Never Alcohol Use Standard Drinks/Week Comments Yes 0 [...] on file documented as of this encounter Miscellaneous Notes * Telephone Encounter - Rosalinda Benson RN - 12/27/2024 9:22 AM EDT Spoke to patient and appointment offered tomorro to re evaluate. Message sent to Arielle. Patient will need to reschedule his cardiology appointment too. Contact: Telephone Call Contact Type: Advice Provider In-Basket: Yes Outcome: see note Face to face time spent with Patient (minutes): 0 Total Time including non face to face (minutes): 20 * Telephone Encounter - Makenna Vasquez MD - 12/27/2024 9:17 AM EDT Recommend clinic tomor * Telephone Encounter - Rosalinda Benson RN - 12/27/2024 8:58 AM EDT Spoke to patient re who is at [facility] today, she was hospitalized recently for. Sepsis Acute bronchitis Respiratory syncytial virus infection/ positive for RSV Recent [facility] confinement last month for sepsis secondary to norovirus gastroenteritis. While on the phone , patient tells me how much worse he is, he says he had seen arielle with symptoms on 12/19 and then was worse and got hospitalized. he states he did see Arielle on 12/19/24 for viral illness, Patient states URI is worse, patient states he is wheezing and does get SOB with activity. Patient is having a cough, productive but clear, patient states he was taking his temp and it was 97, patient was recently dx with RSV and was discharge from [facility] on 12/25. Patient did take SPO2 and it was 95%, Pulse 50, but I can hear wheezing wh ile on the phone. Patient states it feels the wheezing is deep and tight in chest. He states he can't do much activity at all. Patient denies any chest pain. Patient counseled if any chest pain or worsening SOB patient to go to ER. Patient was to follow up with cardiology yesterday but forgot aboutappointment because he feels terrible. I will message Dr. Vasquez for advice. documented in this encounter Plan of Treatment Upcoming Encounters Date Type Department Care Team (Late st Contact Info) Description 12/28/2024 1:00 PM EDT Office Visit Family [address] [place] [phone] Arielle Hernández CRNP [address] [place] [address] [place] [address] 01/04/2025 2:00 PM EDT Office Visit Gastroenterology, [facility] [address] [place] [address] Berenice Montano CRNP [address] [place] [address] 01/11/2025 9:50 AM EDT Anticoagulation Pharmacy, [address] [place] [address] [place] [address] 07/17/2025 1:40 PM EDT Office Visit Family Medicine [address] [place] [phone] Neo Han MD [address] [place] [address] [place] [address] Scheduled Procedures Name Priority Associated Diagnoses Date/Ti [...] shot) (#1) 2024 08/04/2005 Colonoscopy 10/26/2024 10/26/2019, 06/2020, 11/22/2015, Additional history exists Diabetic Eye Exam 04/26/2025 04/26/2024, , 11/12/2023, Additional history exists HbA1c 06/21/2025 12/19/2024, 06/18, 05/11/2023, Additional history exists Albumin/Creatinine Ratio 07/04/2025 024, 05/11/2023, 05/20/2022, Additional history exists TSH 07/04/2025 07/04/2024, 04/18, 05/20/2022, Additional history exists GFR 12/19/2025 12/19/2024, 06/18, 02/04/2024, Additional history exists DTap/Tdap Vaccines (2 - [...] Not on filedocumented as of this encounter Advance Directives * Full Code [...] 2:54 PM 12/14/2007 5:34 PM Care Teams Car Repossessor Relationship Specialty Start Date End Date Neo Han MD [address] [place] [address] [place] [address] PCP - General Family Medicine 07/19/13 documented as of this encounter
--- OUTSIDE RECORDS SUMMARY | 2024-12-29 02:44 | External Medical Summary ---
Author Name Unknown Address Unknown Organization [id number]:LABORATORY [facility] [place] - [address] [facility] [address] [facility] [address] Laboratory Report Ordering Provider Test Date Status SORAIDA AUGUSTINE 12/19/2024 13:36:43 Final Observation Date Value Abnormality Reference (Units ) Status HbA1C 12/19/2024 13:36:43 5.7 Above high normal 4. 0-5.6 (%) Final The use of HbA1c to monitor glycemic status is based on normal hemoglobin and HbA composition. This test should not be used in patients with abnormal hemoglobin that affects the half life of the red blood cell or the in vivo glycation rates. Glucose, estimated average 12/19/2024 13:36:43 117 <126 (mg/dL) Final Performing Location LABORATORY [facility] [place] - [address] [facility] [address]
--- OUTSIDE RECORDS SUMMARY | 2024-12-29 02:44 | External Medical Summary | Summary of Care ---
Author Name Unknown Organization [facility] Address [address] [place] [address] Phone [phone] Care Team Providers Care Wool Shearing Supervisor Name Role Phone Neo Han MD Primary Care Provide r Reason for Visit * Reason Comments Outpatient Testing Encounter Details Date Type Department Care Team (Late st Contact Info) Description 12/19/2024 1:40 PM EST Laboratory Laboratory [address] [place] [phone] [place] [address] Type 2 diabetes mellitus with polyneuropathy (HCC) Allergies Active Allergy Reactions Criticality Noted [...] Capsules daily . For 10 days Active OneTouch Verio In Vitro Strip (Glucose Blood)Indication s:Type 2 [...] thrombus 01/11/2023 Coronary artery disease invo lving nav[place] coronary artery of [place] heart without angina pectoris 01/11/2023 Incisional hernia, [...] CG/0.3 mL, 12 YRS AND ABOVE, IM (Cloud Elements-Comirnaty) 07/30/2023 Covid-19, Mrna, Lnp-s, Pf, B ivalent, [...] on file documented as of this encounter Plan of Treatment Upcoming Encounters Date Type Department Care Team (Adelita park Contact Info) Description 12/26/2024 10:00 AM EDT Office Visit Cardiology, [facility] [address] [place] [address] Nellie Frausto PA-C [address] [place] [address] 01/04/2025 2:00 PM EDT Office Visit Gastroenterology, [facility] [address] [place] [address] Berenice Montano CRNP [address] [place] [address] 01/11/2025 9:50 AM EDT Anticoagulation Pharmacy, [address] [place] [address] [place] [address] 07/17/2025 1:40 PM EDT Office Visit Family Medicine [address] [place] [phone] Neo Han MD [address] [place] [address] [place] [address] Pending Results Name Type Priority Associated Diagnoses Date /Time COMPREHENSIVE METABOLIC PANEL Lab Routine Type 2 diabetes mellitus with polyneuropathy (HCC) 12/19/2024 1:36 PM EST CBC WITH WBC DIFFERENTIAL AND ANEMIA REFLEX WORKUP Lab Routine Type 2 diabetes mellitus with polyneuropathy (HCC) 12/19/2024 1:36 PM EST HEMOGLOBIN A1C Lab Routine Type 2 diabetes mellitus with polyneuropathy (HCC) 12/19/2024 1:36 PM EST ANEMIA CBC Lab Routine Type 2 diabetes mellitus with polyneuropathy (HCC) 12/19/2024 1:36 PM EST DIFFERENTIAL, AUTOMATED Lab Routine Type 2 diabetes mellitus with polyneuropathy (HCC) 12/19/2024 1:36 PM EST ANEMIA REFLEX CHEMISTRY HOLD Lab Routine Type 2 diabetes mellitus with polyneuropathy (HCC) 12/19/2024 1:36 PM EST Scheduled Procedures Name Priority Associated Diagnoses Date/Ti [...] 10/26/2024 10/26/2019, 06/2020, 11/22/2015, Additional history exists HbA1c 01/01/2025 07/04/2024, 04/18, 01/11/2023, Additional history exists Diabetic Eye Exam 04/26/2025 04/26/2024, , 11/12/2023, Additional history exists Albumin/Creatinine Ratio 07/04/2025 024, 05/11/2023, 05/20/2022, Additional history exists GFR 07/04/2025 07/04/2024, 04/1 06/2024, 10/04/2023, Additional history exists TSH 07/04/2025 07/04/2024, [...] as of this encounter Visit Diagnoses Diagnosis Type 2 diabetes mellitus with polyneuropathy (HCC) Type II or unspecified type diabetes mellitus with neurological manifestations, not stated as uncontrolled documented in this encounter Advance Directives * [...] 2:54 PM 12/14/2007 5:34 PM Care Teams Wool Shearing Supervisor Relationship Specialty Start Date End Date Neo Han MD [address] [place] [address] [place] [address] PCP - General Family Medicine 07/19/13 documented as of this encounter
--- OUTSIDE RECORDS SUMMARY | 2024-12-29 02:44 | External Medical Summary | Summary of Care ---
Author Name Unknown Organization [facility] Address [address] [place] [address] Phone [phone] Care Team Providers Care Junior Qa Analyst Name Role Phone Neo Han MD Primary Care Provide r Encounter Details Date Type Department Care Team (Late st Contact Info) Description 12/27/2024 Telephone Family Medicine [address] [phone] Neo Han MD [address] [place] [address] Allergies Active Allergy Reactions Criticality Noted [...] thrombus 01/11/2023 Coronary artery disease invo lving [place] coronary artery of [place] heart without angina pectoris 01/11/2023 Incisional hernia, [...] CG/0.3 mL, 12 YRS AND ABOVE, IM (CarZumer-Comirnaty) 07/30/2023 Covid-19, Mrna, Lnp-s, Pf, B ivalent, [...] Spoke to patient re who is at [facility] today, she was hospitalized recently for. Sepsis Acute bronchitis Respiratory syncytial virus infection/ positive for RSV Recent [facility] confinement last month for sepsis secondary to [...] dx with RSV and was discharge from [facility] on 12/25. Patient did take SPO2 and [...] 12/28/2024 1:00 PM EDT Office Visit Family [address] [place] [phone] Arielle Hernández CRNP [address] [place] [address] [place] [address] 01/04/2025 2:00 PM EDT Office Visit Gastroenterology, [facility] [address] [place] [address] Berenice Montano CRNP [address] [place] [address] 01/11/2025 9:50 AM EDT Anticoagulation Pharmacy, [address] [place] [address] [place] [address] 07/17/2025 1:40 PM EDT Office Visit Family Medicine [address] [place] [phone] Neo Han MD [address] [place] [address] [place] [address] Scheduled Procedures Name Priority Associated Diagnoses Date/Ti [...] 2:54 PM 12/14/2007 5:34 PM Care Teams Junior Qa Analyst Relationship Specialty Start Date End Date Neo Han MD [address] [place] [address] [place] [address] PCP - General Family Medicine 07/19/13 documented as of this encounter
--- OUTSIDE RECORDS SUMMARY | 2024-12-29 02:44 | External Medical Summary ---
Author Name Unknown Address Unknown Organization K01:LAB[facility]ATORY [facility] [place] - [address] [facility] [address] Laboratory Report Ordering Provider Test Date Status SORAIDA AUGUSTINE 12/19/2024 13:36:43 Final Observation Date Value Abnormality Reference (Units ) Status WBC, Total 12/19/2024 13:36:43 6.56 4.00-10.8 0 (K/uL) Final RBC 12/19/2024 13:36:43 4.40 4.50-5.25 (M/uL) Final Hemoglobin 12/19/2024 13:36:43 13.4 Below low normal 14 .0-16.8 (g/dL) Final Anemia reflex testing trigge rs on a HGB < 12.0 for Females and HGB < 13.0 for Males in accordance with the WHO Anemia Guidelines
Anemia reflex testing triggers on a HGB < 12.0 for Females and HGB < 13.0 for Males in accordance with the WHO Anemia Guidelines HCT 12/19/2024 13:36:43 41.4 40.0-48.4 (%) Final MCV 12/19/2024 13:36:43 94.1 82.0-99.5 (fL) Final MCH 12/19/2024 13:36:43 30.5 27.0-34.0 (pg) Final MCHC 12/19/2024 13:36:43 32.4 32.0-36.0 (g/dL) Final RDW 12/19/2024 13:36:43 13.9 11.5-15.5 (%) Final Platelets 12/19/2024 13:36:43 130 Below low normal 140 -400 (K/uL) Final MPV 12/19/2024 13:36:43 13.0 6.6-11.1 ( fL) Final Nucleated erythrocytes/100 leukocytes [Ratio] in Blood by Automated count 12/19/2024 13:36:43 0 <=0 (/100 WBCs) Final Performing Location LAB[facility]ATORY [facility] [place] - [address] [facility] [address]
--- OUTSIDE RECORDS SUMMARY | 2024-12-29 02:45 | External Medical Summary ---
Author Name Unknown Address Unknown Organization : Laboratory Report Ordering Provider Test Date Status MAGY JONES 12/11/2024 11:07:09 Final Therapeutic ranges for non-o perative patients:
Prophylaxsis/treatment of DVT: (Range:2.0-3.0)
Treatment of pulmonary embolism:(Range:2.0-3.0)
Prevention of systemic embolism from:
-tissue heart valves
-acute myocardial infarction
-valvular heart disease
-atrial fibrillation
(Range: 2.0-3.0)
Mechanical prosthetic valves: (Range: 2.5-3.5) Observation Date Value Abnormality Reference (Units ) Status INR in Capillary blood by Coagulation assay 12/11/2024 11:07:09 3.9 (INR) Final Performing Location
--- OUTSIDE RECORDS SUMMARY | 2024-12-29 02:45 | External Medical Summary | Summary of Care ---
Author Name Unknown Organization [facility] Address [address] [place] [address] Phone [phone] Care Team Providers Care Prepared Foods Team Leader Name Role Phone Juan Han MD Primary Care Provide r Reason for Visit * Reason Onset Date Comments Medication Refill 10/15/2024 Encounter Details Date Type Department Care Team (Late st Contact Info) Description 10/15/2024 Refill Family Medicine [address] [phone] Juan Han MD [address] [place] [address] Primary insomnia Allergies Active Allergy Reactions Criticality Noted Date Comments Niacin 01/07/2022 Other reaction(s): ITCHY SPLOTCHY RASH Niacin Er (Antihyperlipidemic) Flushing 09/04/2010 documented as of this encounter (statuses as of 10/17/2024) Medications FIBER FORMULA PO CAPS Take 1 Cap by mouth daily. Active LANCETS MISCIndications :Diabetes mellitus type 2, diet-controlled (HCC) Use once daily as directed Dx 250.00 1 Box 5 07/24/20 13 Active Cyanocobalamin (VITAMIN B-12) 1000 MCG Tablet Take 1 Tablet by mouth in the morning. 05/16/20 19 Active Blood Glucose Monitoring Suppl ([employer] VERIO) w/Device KIT Test daily E11.9 1 Kit 04/16/20 20 Active OneTouch UltraSoft LancetsIndicati ons:Type 2 diabetes mellitus with hemoglobin A1c goal of less than 8.0% (HCC) Test daily. E11.9 100 Each 1 10/02/20 21 Active Acetaminophen 325 MG Oral Tablet (Tylenol) Take 2 Tablets by mouth every 6 hours as needed. 01/13/20 22 Active Advanced Probiotic Oral Capsule Take by mouth 2 Capsules daily . For 10 days Active OneTouch Verio In Vitro Strip (Glucose Blood)Indicatio ns:Type 2 diabetes mellitus with hemoglobin A1c goal of less than 8.0% (HCC) Test daily E11.9 100 Strip 1 07/20/20 22 Active Sildenafil Citrate 100 MG Oral Tablet (Viagra)Indicat ions:Impotence of organic origin One tablet as needed for erectile dysfunction 6 Tablet 6 12/29/19 23 Active Levothyroxine Sodium 25 MCG Oral Tablet (Levoxyl)Indica tions:Hypothyro idism Take 1 Tablet by mouth daily. (at least 30 min prior to breakfast or other meds) 90 Tablet 05/16/20 24 Active Fenofibrate Micronized 134 MG Oral CapsuleIndicati ons:Lipoprotein deficiency Take 1 Capsule by mouth in [...] Active Atorvastatin Calcium 40 MG Oral Tablet (Lipitor)Indica tions:Dyslipide angelita, goal LDL below 100 TAKE ONE TABLET DAILY 90 Tablet 2 06/16/20 24 Active Citalopram Hydrobromide 40 MG Oral Tablet (CeleXA)Indicat ions:Major depressive disorder, recurrent, in partial remission (HCC) TAKE 1 TABLET BY MOUTH IN THE MORNING 90 Tablet 3 06/16/20 24 Active Pantoprazole Sodium 40 MG Oral Tablet Delayed Release (Protonix) TAKE ONE TABLET BY MOUTH EVERY MORNING 90 Tablet 1 06/27/20 24 Active Ozempic (0.25 or 0.5 MG/DOSE) 2 MG/3ML Solution Pen-injector (Semaglutide(0. 25 or 0.5MG/DOS)) Inject 0.5 mg under the [...] Active traZODone HCl 50 MG Oral Tablet (Desyrel)Indica tions:Primary insomnia Take 1 Tablet by mouth at bedtime. 90 Tablet 1 10/17/20 24 Active traZODone HCl 50 MG Oral Tablet (Desyrel)Indica tions:Primary insomnia TAKE ONE TABLET BY MOUTH AT BEDTIME 90 Tablet 1 07/06/20 24 024 Discontin ued(Refil l) documented as of this encounter (statuses as of 10/17/2024) Active Problems Problem Noted Date Diagnosed Date Chronic ischemic heart disease 02/04/2024 HTN, goal below 130/80 02/04/2024 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 (TAYLOR) 01/11/2023 Systolic congestive heart failure 01/11/2023 S/P drug eluting coronary stent placement 2022 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 Coronary artery disease invo lving [place] coronary artery of [place] heart without angina pectoris 01/11/2023 Incisional hernia, [...] as of this encounter (statuses as of 10/17/2024) Resolved Problems Problem Noted Date Diagnosed Date [...] per CVA protocol #8 Mixed dyslipidemia 12/06/2007 Overview (10/07/2009): Per Lipid Taxonomy. ADVANCE DIRECTIVE [...] as of this encounter (statuses as of 10/17/2024) Immunizations Name Administration Dates Next Due COVID-19 mRNA, LNP-s, No Pre serve, 2-Dose Series ([employer]) 08/12/2021,12/28/2020,12/02/2020 COVID-19, MRNA-LNP, PF, 30 M CG/0.3 [...] encounter Miscellaneous Notes * Telephone Encounter - Julian Nash [facility] - 10/17/2024 1:05 AM ESTSigned Prescriptions: Disp Refills traZODone HCl 50 MG Oral Tablet (Desyrel) 90 Tab*1 Sig: Take 1 Tablet by mouth at bedtime.Authorizing Provider: JUAN HAN User: JULIAN NASH * Telephone Encounter - Julian Nash [facility] - 10/17/2024 1:03 AM EST Resend of rx sent on 07/06/24 for file per request by pharmacy. Will place note to discard if file rx found Julian Nash [facility] Clinical Pharmacist Telepharmacy [phone] 10/17/2024 1:04 AM documented in this encounter Plan of Treatment Upcoming Encounters Date Type Department Care Team (Late st Contact Info) Description 10/31/2024 10:30 AM EST Anticoagulation Pharmacy, [address] [place] [address] [place] [address] 12/14/2024 9:00 AM EST Office Visit Gastroenterology, [facility] [address] [place] [address] Berenice Montano CRNP [address] [place] [address] 12/19/2024 1:00 PM EST Office Visit Family Medicine [address] [place] [phone] Mukesh Hernández CRNP [address] [place] [address] [place] [address] 12/26/2024 10:00 AM EDT Office Visit Cardiology, [facility] 132 [facility] [place] [address] Nellie Frausto PA-C [address] [place] [address] [place] [address] 07/17/2025 1:40 PM EDT Office Visit Family Medicine [address] [phone] Juan Han MD [address] [place] [address] [place] [address] Scheduled Procedures Name Priority Associated Diagnoses Date/Ti [...] shot) (#1) 2024 08/04/2005 Colonoscopy 10/26/2024 10/26/2019, 010 06/2020, 11/22/2015, Additional history exists Diabetic Eye Exam 11/12/2024 11/12/2023, , 08/27/2021, Additional history exists HbA1c 01/01/2025 07/04/2024, 04/18, 01/11/2023, Additional history exists Albumin/Creatinine Ratio 07/04/2025 024, 05/11/2023, 05/20/2022, Additional history exists GFR 07/04/2025 07/04/2024, 04/06/2024, 10/04/2023, Additional history exists TSH 07/04/2025 07/04/2024, [...] as of this encounter Visit Diagnoses Diagnosis Primary insomnia Persistent disorder of initiating or maintaining sleep documented in this encounter Advance Directives * [...] 2:54 PM 12/14/2007 5:34 PM Care Teams Prepared Foods Team Leader Relationship Specialty Start Date End Date Juan Han MD [address] [place] [address] [place] [address] PCP - General Family Medicine 07/19/13 documented as of this encounter
--- OUTSIDE RECORDS SUMMARY | 2024-12-29 02:45 | External Medical Summary | Summary of Care ---
Author Name Unknown Organization [facility] Address [address] [place] [address] Phone [phone] Care Team Providers Care Pulmonology Physician Name Role Phone Juan Han MD Primary Care Provide r Reason for Visit * Reason Onset Date Comments Medication Refill 11/01/2024 Encounter Details Date Type Department Care Team (Late st Contact Info) Description 11/01/2024 Refill Family Medicine [address] [phone] Juan Han MD [address] [place] [address] Impotence of organic origin Allergies Active Allergy Reactions Criticality Noted Date Comments Niacin 01/07/2022 Other reaction(s): ITCHY SPLOTCHY RASH Niacin Er (Antihyperlipidemic) Flushing 09/04/2010 documented as of this encounter (statuses as of 11/02/2024) Medications FIBER FORMULA PO CAPS Take 1 Cap by mouth daily. Active LANCETS MISCIndications :Diabetes mellitus type 2, diet-controlled (HCC) Use once daily as directed Dx 250.00 1 Box 5 07/24/20 13 Active Cyanocobalamin (VITAMIN B-12) 1000 MCG Tablet Take 1 Tablet by mouth in the morning. 05/16/20 19 Active Blood Glucose Monitoring Suppl ([employer] VERIO) w/Device KIT Test daily E11.9 1 [...] E11.9 100 Strip 1 07/20/20 22 Active Levothyroxine Sodium 25 MCG Oral Tablet [...] dysfunction 6 Tablet 6 11/02/19 25 Active Sildenafil Citrate 100 MG Oral Tablet (Viagra)Indicat ions:Impotence of organic origin One tablet as needed for erectile dysfunction 6 Tablet 6 12/29/19 23 025 Discontin ued(Refil l) documented as of this encounter (statuses as of 11/02/2024) Active Problems Problem Noted Date Diagnosed Date Chronic ischemic heart disease 02/04/2024 HTN, goal below 130/80 02/04/2024 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 (TAYLOR) 01/11/2023 Systolic congestive heart failure 01/11/2023 S/P drug eluting coronary stent placement 2022 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 Coronary artery disease invo lving ambler coronary artery of ambler heart without angina pectoris 01/11/2023 Incisional hernia, [...] as of this encounter (statuses as of 11/02/2024) Resolved Problems Problem Noted Date Diagnosed Date [...] as of this encounter (statuses as of 11/02/2024) Immunizations Name Administration Dates Next Due COVID-19 mRNA, LNP-s, No Pre serve, 2-Dose Series ([employer]) 08/12/2021,12/28/2020,12/02/2020 COVID-19, MRNA-LNP, PF, 30 M CG/0.3 mL, 12 YRS AND ABOVE, IM ([employer]-Comirnaty) 07/30/2023 Covid-19, Mrna, Lnp-s, Pf, B ivalent, [...] encounter Miscellaneous Notes * Telephone Encounter - Juan Han MD - 11/02/2024 12:16 PM EST Signed Prescriptions: Disp Refills Sildenafil Citrate 100 MG Oral Tablet (Via*6 Tabl*6 Sig: One tablet as needed for erectile dysfunction Authorizing Provider: JUAN HAN * Telephone Encounter - Halina Hogue [facility] - 11/02/2024 11:25 AM ESTPending Prescriptions: Disp Refills Sildenafil Citrate 100 MG Oral Tablet (Via*6 Tabl*6 Sig: One tablet as needed for erectile dysfunction * Telephone Encounter - Halina Hogue [facility] - 11/02/2024 11:25 AM EST Patient requesting refill on Sildenafil last ordered 2 years ago Please approve if appropriate. Thank You, Halina Hogue [facility] Clinical Pharmacist [facility] [phone] [id number] 11/02/2024, 11:25 AM documented in this encounter Plan of Treatment Upcoming Encounters Date Type Department Care Team (Late st Contact Info) Description 12/11/2024 11:00 AM EST Anticoagulation Pharmacy, [address] [place] [address] [place] [address] 12/14/2024 9:00 AM EST Office Visit Gastroenterology, [facility] 132 [facility] [place] [address] Berenice Montano CRNP [facility] [place] [address] 12/19/2024 1:00 PM EST Office Visit [address] [phone] Mukesh Hernández CRNP [address] [place] [address] [place] [address] 12/26/2024 10:00 AM EDT Office Visit Cardiology, [facility] 132 [facility] [place] [address] Nellie Frausto PA-C 400 [facility] [place] [address] 07/17/2025 1:40 PM EDT Office Visit [address] [phone] Juan Han MD [address] [place] [address] [place] [address] Scheduled Procedures Name Priority Associated Diagnoses Date/Ti [...] 05/20/2022, Additional history exists GFR 07/04/2025 07/04/2024, 01/16, 10/04/2023, Additional history exists TSH 07/04/2025 07/04/2024, [...] as of this encounter Visit Diagnoses Diagnosis Impotence of organic origin documented in this encounter Advance Directives * [...] 2:54 PM 12/14/2007 5:34 PM Care Teams Pulmonology Physician Relationship Specialty Start Date End Date Juan Han MD [address] [place] [address] [place] [id number] PCP - General Family Medicine 07/19/13 documented as of this encounter
--- OUTSIDE RECORDS SUMMARY | 2024-12-29 02:45 | External Medical Summary | Summary of Care ---
Author Name Unknown Organization [facility] Address [address] [place] [address] Phone [phone] Care Team Providers Care Call Or Contact Centre Team Leader Name Role Phone Juan Han MD Primary Care Provide r Reason for Visit * Reason Onset Date Comments Medication Refill 12/11/2024 Encounter Details Date Type Department Care Team (Late st Contact Info) Description 12/11/2024 Refill Family Medicine [address] [phone] Juan Han MD [address] [place] [address] Hypothyroidism Allergies Active Allergy Reactions Criticality Noted Date Comments Niacin 01/07/2022 Other reaction(s): ITCHY SPLOTCHY RASH Niacin Er (Antihyperlipidemic) Flushing 09/04/2010 documented as of this encounter (statuses as of 12/11/2024) Medications FIBER FORMULA PO CAPS Take 1 Cap by mouth daily. Active LANCETS MISCIndications :Diabetes mellitus type 2, diet-controlled (HCC) Use once daily as directed Dx 250.00 1 Box 5 07/24/20 13 Active Cyanocobalamin (VITAMIN B-12) 1000 MCG Tablet Take 1 Tablet by mouth in the morning. 05/16/20 19 Active Blood Glucose Monitoring Suppl ([employer] VERIO) w/Device KIT Test daily E11.9 1 [...] 22 Active Fenofibrate Micronized 134 MG Oral CapsuleIndicati [...] tions:Hypothyro idism Take 1 Tablet by mouth in the morning. (at least 30 min prior to breakfast or other meds). 90 Tablet 1 12/11/19 25 Active Levothyroxine Sodium 25 MCG Oral Tablet (Levoxyl)Indica tions:Hypothyro idism Take 1 Tablet by mouth daily. (at least 30 min prior to breakfast or other meds) 90 Tablet 05/16/20 24 025 Discontin ued(Refil l) documented as of this encounter (statuses as of 12/11/2024) Active Problems Problem Noted Date Diagnosed Date Chronic ischemic heart disease 02/04/2024 HTN, goal below 130/80 02/04/2024 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 (TAYLOR) 01/11/2023 Systolic congestive heart failure 01/11/2023 S/P drug eluting coronary stent placement 2022 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 Coronary artery disease invo lving [place] coronary artery of [place]ki[place] heart without angina pectoris 01/11/2023 Incisional hernia, [...] as of this encounter (statuses as of 12/11/2024) Resolved Problems Problem Noted Date Diagnosed Date [...] as of this encounter (statuses as of 12/11/2024) Immunizations Name Administration Dates Next Due COVID-19 mRNA, LNP-s, No Pre serve, 2-Dose Series ([employer]) 08/12/2021,12/28/2020,12/02/2020 COVID-19, MRNA-LNP, PF, 30 M CG/0.3 mL, 12 YRS AND ABOVE, IM ([employer]Comir[employer]) 07/30/2023 Covid-19, Mrna, Lnp-s, Pf, B ivalent, [...] Telephone Encounter - Juan Han MD - 12/11/2024 12:15 PM EST Signed Prescriptions: Disp Refills Levothyroxine Sodium 25 MCG Oral Tablet (L*90 Tab*1 Sig: Take 1 Tablet by mouth in the morning. (at least 30 min prior to breakfast or other meds). Authorizing Provider: JUAN HAN * Telephone Encounter - Mary Coleman, JORDEN - 12/11/2024 12:02 PM ESTPending Prescriptions: Disp Refills Levothyroxine Sodium 25 MCG Oral Tablet (L*90 Tab*1 Sig: Take 1 Tablet by mouth in the morning. (at least 30 min prior to breakfast or other meds). * Telephone Encounter - Grace Trinidad OSA - 12/11/2024 11:54 AM EST Did you pend patient's preferred pharmacy and medication before forwarding?yes Pharmacy: [facility] [address] Pending Prescriptions: Disp Refills Levothyroxine Sodium 25 MCG Oral Tablet (*90 Tab*0 Sig: Take 1 Tablet by mouth in the morning. (at least 30 min prior to breakfast or other meds). Last Visit: 06/13/2024 (in office), Visit date not found (telemedicine) Next Visit: 12/19/2024 If no future appointments scheduled, and last appointment is greater than a year ago, please schedule patient for a follow-up appointment Last date the medication was ordered: 05.16.24 Is this request for a controlled substance?No Urine Drug Screen: Results for orders placed or performed during the hospital encounter of 12/06/07 TOX SCREEN, URINE Result Value NOTE: + Screening results are presumptive unless specimen is NOTE: retested by a confirmatory method. Contact Toxicology NOTE: Service for information on confirmatory testing. NOTE: + Screening results qualitatively identify drugs listed NOTE: in the GML user's manual for the specimen type indicated. Amphetamine Screen, U NOT DETECTED Barbiturates Screen, U NOT DETECTED Benzodiazepines Screen, U POSITIVE (A) Cannabinoids Screen, U NOT DETECTED Cocaine Metabolite Screen, U NOT DETECTED Morphine/Codeine Screen, U NOT DETECTED PCP NOT DETECTED ACETAMINOPHEN, QUAL NOT DETECTED SALICYLATES, QUAL NOT DETECTED DRUGS (HPLC) Zolpidem DRUGS (HPLC) LIDOCAINE DETECTION LIMIT DETECTION LIMIT AMPHETAMINES 1000 ng/mL DETECTION LIMIT BARBITURATES 200 ng/mL DETECTION LIMIT BENZODIAZEPINES 300 ng/mL DETECTION LIMIT CANNABINOIDS 50 ng/mL DETECTION LIMIT COCAINE METABOLITE 300 ng/mL DETECTION LIMIT OPIATES 300 ng/mL DETECTION LIMIT PCP 25 ng/mL DETECTION LIMIT ACETAMINOPHEN 10 ug/mL DETECTION LIMIT SALICYLATES 1.0 mg/mL *Note: Due to a large number of results and/or encounters for the requested time period, some results have not been displayed. A complete set of results can be found in Results Review. Patient Phone Numbers Labs: Lab Results Component Value Date/Time CREAT 0.9 07/04/2024 08:40 AM CREAT 1.04 05/22/2022 12:00 AM CREAT 0.9 09/26/2020 11:23 AM POTASSIUM 4.2 07/04/2024 08:40 AM POTASSIUM 3.8 05/22/2022 12:00 AM POTASSIUM 4.4 09/26/2020 11:23 AM TSH 2.15 07/04/2024 08:40 AM TSH 3.23 07/16/2020 03:04 PM LDL 47 07/04/2024 08:40 AM LDL 55 07/16/2020 03:04 PM LDL UNINTERPRETABLE RESULT 05/12/2019 02:21 PM LDLCALC 56 09/24/2010 12:00 AM ALT 23 07/04/2024 08:40 AM ALT 26 09/26/2020 11:23 AM HGBA1C 6.7 (H) 07/04/2024 08:40 AM HGBA1C 7.1 (H) 07/16/2020 02:55 PM documented in this encounter Plan of Treatment Upcoming Encounters Date Type Department Care Team (Late st Contact Info) Description 12/19/2024 1:00 PM EST Office Visit [address] [place] [phone] Mukesh Hernández [address] [place] [address] 12/26/2024 10:00 AM EDT Office Visit Cardiology, [facility] 132 [facility] [place] [address] Nellie Frausto PA-C [address] [facility] [place] [address] 01/04/2025 2:00 PM EDT Office Visit Gastroenterology, [address] [place] [address] Berenice Montano CRNP 132 [facility] [place] [address] 01/11/2025 9:50 AM EDT Anticoagulation Pharmacy, [address] [place] [address] [place] [address] 07/17/2025 1:40 PM EDT Office Visit Family [address] [place] [phone] Juan Han MD [address] [place] [address] [place] [address] Scheduled Procedures Name Priority Associated Diagnoses Date/Ti [...] as of this encounter Visit Diagnoses Diagnosis Hypothyroidism Unspecified hypothyroidism documented in this encounter Advance Directives * [...] 2:54 PM 12/14/2007 5:34 PM Care Teams Call Or Contact Centre Team Leader Relationship Specialty Start Date End Date Juan Han MD [address] [place] [address] [place] [address] PCP - General Family Medicine 07/19/13 documented as of this encounter
--- OUTSIDE RECORDS SUMMARY | 2024-12-29 02:45 | External Medical Summary | Summary of Care ---
Author Name Unknown Organization [facility] Address [address] [place] [address] Phone [phone] Care Team Providers Care Billposting Supervisor Name Role Phone Neo Han MD Primary Care Provide r Reason for Visit * Reason Comments Dosage Adjustment In Person (Anticoag Cl inic) Encounter Details Date Type Department Care Team (Latest Contact Info) Description 10/31/2024 10:30 AM [facility] Anticoagulation Pharmacy, [address] [place] [address] [place] [address] Anticoagulation management encounter*; Chronic ischemic heart disease; HTN, goal below 130/80; Frequent PVCs; Apical mural thrombus Allergies Active Allergy Reactions Criticality Noted Date Comments Niacin 01/07/2022 Other reaction(s): ITCHY SPLOTCHY RASH Niacin Er (Antihyperlipidemic) Flushing 09/04/2010 documented as of this encounter (statuses as of 10/31/2024) Medications FIBER FORMULA PO CAPS Take 1 [...] Capsules daily . For 10 days Active [employer] VerLonoCloud In Vitro Strip (Glucose Blood)Indication s:Type 2 [...] ions:Hypothyroid ism Take 1 Tablet by mouth daily. (at least 30 min prior to breakfast or other meds) 90 Tablet 05/16/20 24 Active Fenofibrate Micronized 134 MG Oral CapsuleIndicatio [...] bedtime. 90 Tablet 1 10/17/20 24 Active documented as of this encounter (statuses as of 10/31/2024) Active Problems Problem Noted Date Diagnosed Date Chronic ischemic heart disease 02/04/2024 HTN, goal below 130/80 02/04/2024 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 ([facility]YLOR) 01/11/2023 Systolic congestive heart failure 01/11/2023 S/P drug eluting coronary stent placement 2022 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 Coronary artery disease invo lving [place] coronary artery of [place] heart without angina pectoris 01/11/2023 Incisional hernia, [...] as of this encounter (statuses as of 10/31/2024) Resolved Problems Problem Noted Date Diagnosed Date [...] as of this encounter (statuses as of 10/31/2024) Immunizations Name Administration Dates Next Due COVID-19 mRNA, LNP-s, No Pre serve, 2-Dose Series (Touch of Classic) 08/12/2021,12/28/2020,12/02/2020 COVID-19, MRNA-LNP, PF, 30 M CG/0.3 mL, 12 YRS AND ABOVE, IM ([email or web address]) 07/30/2023 Covid-19, Mrna, Lnp-s, Pf, B ivalent, [...] on file documented as of this encounter Progress Notes * Carlota Walton, [facility] - 10/31/2024 10:26 AM EST Medication Therapy Disease Management - Anticoagulation Patient: Juanito Yoon | : 1945 Subjective Patient-Reported Symptoms: Patient Findings Negatives: Signs/symptoms of thrombosis, Signs/symptoms of bleeding, Change in health, Change in alcohol use, Change in activity, Upcoming invasive procedure, Missed doses, Extra doses, Change in medications, Change in diet/appetite, Bruising Objective Current Warfarin Dose As of 10/31/2024 Warfarin maintenance plan: 3 mg (3 mg x 1) every Mon, Wed, Fri; 6 mg (3 mg x 2) all other days INR Result As of 10/31/2024 INR goal: 2.0-3.0 INR used for dosin.0 (10/31/2024) Assessment & Plan Warfarin Plan As of 10/31/2024 Full warfarin instructions: 3 mg every Mon, Wed, Fri; 6 mg all other days No change documented: Carlota Walton RPh Next INR check: 12/11/2024 Repeat PT/INR in 6 week(s) Weekly dose: not changed Additional Dosing Information: I spent a total of 10-19 minutes (exact time 10 mins) on the date of service in preparation, delivery, and documentation of the care provided to Juanito Yoon excluding any time spent in the performance of separately billed services or time spent by another provider/QHP. Carlota Walton RP Clinical Pharmacist 10/31/2024, 10:26 AM documented in this encounter Plan of Treatment Upcoming Encounters Date Type Department Care Team (Late st Contact Info) Description 12/11/2024 11:00 AM EST Anticoagulation Pharmacy, [address] [place] [address] [place] [address] 12/14/2024 9:00 AM EST Office Visit Gastroenterology, [facility] [address] [place] [address] Berenice Montano CRNP [address] [place] [address] 12/19/2024 1:00 PM EST Office Visit Family [address] [place] [address] Mukesh Hernández CRNP [address] [place] [address] [place] [address] 12/26/2024 10:00 AM EDT Office Visit [facility], [facility] [place] [address] Nellie Frausto PA-C [address] [place] [address] [place] [address] 07/17/2025 1:40 PM EDT Office Visit [address] [phone] Neo Han MD [address] [place] [address] [place] [address] Scheduled Procedures Name Priority Associated Diagnoses Date/Ti [...] Not on filedocumented as of this encounter Procedures Procedure Name Priority Date/Time Associated Diagnosis Comments INR FINGERSTICK, POINT OF CARE STAT 10/31/2024 10:35 AM EST Chronic ischemic heart disease HTN, goal below 130/80 Frequent PVCs Apical mural thrombus Anticoagulation management encounter documented in this encounter Results * INR FINGERSTICK, POINT OF CARE (10/31/2024 10:35 AM EST) Fingerstick INR 3.0 INR 10:36 AM EST [facility]00 Blood 10/31/2024 10:3 5 AM EST 10/31/2024 10:36 AM EST Narrative [facility] - 10/31/2024 10:36 AM EST Therapeutic ranges for non-operative patients: Prophylaxsis/treatment of DVT: (Range:2.0-3.0) Treatment of pulmonary embolism:(Range:2.0-3.0) Prevention of systemic embolism from: -tissue heart valves -acute myocardial infarction -valvular heart disease -atrial fibrillation (Range: 2.0-3.0) Mechanical prosthetic valves: (Range: 2.5-3.5) Carlota Walton [facility] LAB POINT OF CARE TEST DOCKED DEVICE UNSOLICITED RESULTS Final Result [facility] [place] [address] [place] [address] [place] [phone] documented in this encounter Visit Diagnoses Diagnosis Anticoagulation management encounter- Primary Encounter for therapeutic drug monitoring Chronic ischemic heart disease Chronic ischemic heart disease, unspecified HTN, goal below 130/80 Unspecified essential hypertension Frequent PVCs Other premature beats Apical mural thrombus Acute myocardial infarction of other anterior wall, episode of care unspecified documented in this encounter Advance Directives * [...] 2:54 PM 12/14/2007 5:34 PM Care Teams Billposting Supervisor Relationship Specialty Start Date End Date Neo Han MD [address] [place] [address] [place] [address] PCP - General Family Medicine 07/19/13 documented as of this encounter"
--- OUTSIDE RECORDS SUMMARY | 2024-12-29 02:45 | External Medical Summary ---
Author Name Unknown Address Unknown Organization : Laboratory Report Ordering Provider Test Date Status MAGY JONES 10/31/2024 10:35:44 Final Therapeutic ranges for non-o perative patients:
Prophylaxsis/treatment of DVT: (Range:2.0-3.0)
Treatment of pulmonary embolism:(Range:2.0-3.0)
Prevention of systemic embolism from:
-tissue heart valves
-acute myocardial infarction
-valvular heart disease
-atrial fibrillation
(Range: 2.0-3.0)
Mechanical prosthetic valves: (Range: 2.5-3.5) Observation Date Value Abnormality Reference (Units ) Status INR in Capillary blood by Coagulation assay 10/31/2024 10:35:44 3.0 (INR) Final Performing Location
--- OUTSIDE RECORDS SUMMARY | 2024-12-29 02:45 | External Medical Summary | Summary of Care ---
Author Name Unknown Organization [facility] Address [address] [place] [address] Phone [phone] Care Team Providers Care Malt Loader Name Role Phone Neo Han MD Primary Care Provide r Reason for Visit * Reason Comments Dosage Adjustment In Person (Anticoag Cl inic) Encounter Details Date Type Department Care Team (Latest Contact Info) Description 12/11/2024 11:00 AM [facility] Anticoagulation Pharmacy, [address] [place] [address] [place] [address] Anticoagulation management encounter*; Chronic ischemic heart disease; [...] daily E11.9 1 Kit 04/16/20 20 Active yubackuch UltraSoft LancetsIndicati ons:Type 2 diabetes mellitus with hemoglobin A1c goal of less than 8.0% (HCC) Test daily. E11.9 100 Each 1 10/02/20 21 Active Acetaminophen 325 MG Oral Tablet (Tylenol) Take 2 Tablets by mouth every 6 hours as needed. 01/13/20 22 Active Advanced Probiotic Oral Capsule Take by mouth 2 Capsules daily . For 10 days Active [employer] In Vitro Strip (Glucose Blood)Indicatio ns:Type 2 [...] directed by anticoagulation clinic 60 Tablet 5 10/21/20 24 Active traZODone HCl 50 MG Oral [...] thrombus 01/11/2023 Coronary artery disease invo lving [place] coronary artery of [place] heart without angina pectoris 01/11/2023 Incisional hernia, [...] as of this encounter Progress Notes * Ekaterina Almaraz, [facility] - 12/11/2024 11:02 AM EST Images from the original note were not included. Medication Therapy Disease Management - Anticoagulation Patient: Juanito oYon | : 1945 Subjective Patient-Reported Symptoms: Patient Findings Positives: Change in health (just getting over norovirus. starting to feel back to his usual self, but still not eating as much or having as much energy) Negatives: Signs/symptoms of thrombosis, Signs/symptoms of bleeding, Change in alcohol use, Change in activity, Upcoming invasive procedure, Missed doses, Extra doses, Change in medications, Change in diet/appetite, Bruising Objective Current Warfarin Dose As of 12/11/2024 Warfarin maintenance plan: 3 mg (3 mg x 1) every Mon, Wed, Fri; 6 mg (3 mg x 2) all other days INR Result As of 12/11/2024 INR goal: 2.0-3.0 INR used for dosin.9 (12/11/2024) Assessment & Plan Warfarin Plan As of 12/11/2024 Full warfarin instructions: 12/11: Hold; 12/12: 3 mg; Otherwise 3 mg every Mon, Wed, Fri; 6 mg all other days Next INR check: 01/11/2025 Repeat PT/INR in 4 week(s) Weekly dose: not changed Additional Dosing Information: I spent a total of 10-19 minutes (exact time 10 mins) on the date of service in preparation, delivery, and documentation of the care provided to Juanito Yoon excluding any time spent in the performance of separately billed services or time spent by another provider/QHP. Ekaterina Almaraz [facility] Clinical Pharmacist 12/11/2024, 11:02 AM documented in this encounter Plan of Treatment Upcoming Encounters Date Type Department Care Team (Late st Contact Info) Description 12/19/2024 1:00 PM EST Office Visit Family Medicine [address] [place] [phone] Mukesh Hernández [address] [place] [phone] 12/26/2024 10:00 AM EDT Office Visit Cardiology, [facility] [address] [facility] [place] [address] Nellie Frausto PA-C [address] [place] [address] [place] [address] 01/04/2025 2:00 PM EDT Office Visit Gastroenterology, [facility] [address] [facility] [place] [address] Berenice Montano CRNP 132 [facility] [place] [address] 01/11/2025 9:50 AM EDT Anticoagulation Pharmacy, [address] [place] [address] [place] [address] 07/17/2025 1:40 PM EDT Office Visit Family Medicine [address] [place] [phone] Neo Han MD [address] [place] [address] [place] [address] Scheduled Procedures Name Priority Associated Diagnoses Date/Ti [...] Comments INR FINGERSTICK, POINT OF CARE STAT 12/11/2024 11:07 AM EST Chronic ischemic heart disease HTN, goal below 130/80 Frequent PVCs Apical mural thrombus Anticoagulation management encounter documented in this encounter Results * INR FINGERSTICK, POINT OF CARE (12/11/2024 11:07 AM EST) Fingerstick INR 3.9 INR 11:09 AM EST [facility] [place] 55-00 Blood 12/11/2024 11:0 7 AM EST 12/11/2024 11:08 AM EST Narrative [facility] [place] 55-00 - 12/11/2024 11:09 AM EST Therapeutic ranges for non-operative patients: Prophylaxsis/treatment of DVT: (Range:2.0-3.0) Treatment of pulmonary embolism:(Range:2.0-3.0) Prevention of systemic embolism from: -tissue heart valves -acute myocardial infarction -valvular heart disease -atrial fibrillation (Range: 2.0-3.0) Mechanical prosthetic valves: (Range: 2.5-3.5) Carlota Walton [facility] LAB POINT OF CARE TEST DOCKED DEVICE UNSOLICITED RESULTS Final Result [facility] [place] [address] [place] [address] [place] [address] documented in this encounter Visit Diagnoses Diagnosis [...] 2:54 PM 12/14/2007 5:34 PM Care Teams Malt Loader Relationship Specialty Start Date End Date Neo Han MD [address] [place] [address] [place] [address] PCP - General Family Medicine 07/19/13 documented as of this encounter"
--- OUTSIDE RECORDS SUMMARY | 2024-12-29 02:46 | External Medical Summary | Summary of Care ---
Author Name Unknown Organization [facility] Address [address] [place] [address] Phone [phone] Care Team Providers Care Teacher Of Gifted Students Name Role Phone Neo Han MD Primary Care Provide r Reason for Visit * Reason Comments Dosage Adjustment In Person (Anticoag Cl inic) Encounter Details Date Type Department Care Team (Latest Contact Info) Description 08/15/2024 10:30 AM EDT Anticoagulation Pharmacy, [address] [place] [address] [place] [address] Anticoagulation management encounter*; Chronic ischemic heart disease; HTN, goal below 130/80; Frequent PVCs; Apical mural thrombus Allergies Active Allergy Reactions Criticality Noted Date Comments Niacin 01/07/2022 Other reaction(s): ITCHY SPLOTCHY RASH Niacin Er Flushing 09/04/2010 documented as of this encounter (statuses as of 08/15/2024) Medications Medication Sig Dispensed Refills Start Date End Date Status FIBER FORMULA PO CAPS Take 1 Cap by mouth daily. Active LANCETS MISCIndications:Di abetes mellitus type 2, diet-controlled (HCC) Use once daily as directed Dx 250.00 1 Box 5 07/24/2013 Active Cyanocobalamin (VITAMIN B-12) 1000 MCG Tablet Take 1 Tablet by mouth in the morning. 05/16/2019 Active Blood Glucose Monitoring Suppl (What's Trending VERIO) w/Device KIT Test daily E11.9 1 Kit 04/16/2020 Active OneTouch UltraSoft LancetsIndications :Type 2 diabetes mellitus with hemoglobin A1c goal of less than 8.0% (HCC) Test daily. E11.9 100 Each 1 10/02/2021 Active Acetaminophen 325 MG Oral Tablet (Tylenol) Take 2 Tablets by mouth every 6 hours as needed. 01/12/2022 Active Advanced Probiotic Oral Capsule Take by mouth 2 Capsules daily . For 10 days Active MimosaTouch Verio In Vitro Strip (Glucose Blood)Indications: Type 2 diabetes mellitus with hemoglobin A1c goal of less than 8.0% (HCC) Test daily E11.9 100 Strip 1 07/20/2022 Active Sildenafil Citrate 100 MG Oral Tablet (Viagra)Indication s:Impotence of organic origin One tablet as needed for erectile dysfunction 6 Tablet 6 12/28/2022 Active Levothyroxine Sodium 25 MCG Oral Tablet (Levoxyl)Indicatio ns:Hypothyroidism Take 1 Tablet by mouth daily. (at least 30 min prior to breakfast or other meds) 90 Tablet 05/16/2024 Active Fenofibrate Micronized 134 MG Oral CapsuleIndications :Lipoprotein deficiency Take 1 Capsule by mouth in the morning. 90 Capsule 1 06/08/2024 Active Metoprolol Succinate ER 50 MG Oral Tablet Extended Release 24 Hour (toPROL XL) Take 1 Tablet by mouth in the morning. 90 Tablet 3 06/12/2024 Active Clopidogrel Bisulfate 75 MG Oral Tablet (pLAVix) Take 1 Tablet by mouth. In the morning. 06/12/2024 Active Atorvastatin Calcium 40 MG Oral Tablet (Lipitor)Indicatio ns:Dyslipidemia, goal LDL below 100 TAKE ONE TABLET DAILY 90 Tablet 2 06/16/2024 Active Citalopram Hydrobromide 40 MG Oral Tablet (CeleXA)Indication s:Major depressive disorder, recurrent, in partial remission (HCC) TAKE 1 TABLET BY MOUTH IN THE MORNING 90 Tablet 3 06/16/2024 Active Pantoprazole Sodium 40 MG Oral Tablet Delayed Release (Protonix) TAKE ONE TABLET BY MOUTH EVERY MORNING 90 Tablet 1 06/27/2024 Active Ozempic (0.25 or 0.5 MG/DOSE) 2 MG/3ML Solution Pen-injector (Semaglutide(0.25 or 0.5MG/DOS)) Inject 0.5 mg under the skin once a week. 3 mL 5 07/06/2024 Active traZODone HCl 50 MG Oral Tablet (Desyrel)Indicatio ns:Primary insomnia TAKE ONE TABLET BY MOUTH AT BEDTIME 90 Tablet 1 07/06/2024 Active Enalapril Maleate 2.5 MG Oral Tablet (Vasotec) TAKE ONE TABLET TWICE DAILY 180 Tablet 3 07/07/2024 Active Warfarin Sodium 3 MG Oral Tablet (Coumadin) Take 1-2 tablets by mouth daily as directed by anticoagulation clinic 60 Tablet 5 08/07/2024 Active documented as of this encounter (statuses as of 08/15/2024) Active Problems Problem Noted Date Diagnosed Date Chronic ischemic heart disease 02/04/2024 HTN, goal below 130/80 02/04/2024 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 (TAYLOR) 01/11/2023 Systolic congestive heart failure 01/11/2023 S/P drug eluting coronary stent placement 2022 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 Coronary artery disease invo lving [place] coronary artery of [place] heart without angina pectoris 01/11/2023 Incisional hernia, without obstruction or gangre ne 02/21/2021 Type 2 diabetes mellitus with polyneuropathy Cirrhosis of liver 09/26/2019 B12 deficiency 05/16/2019 Major depressive disorder, recurrent, in partial remission 11/10/2018 Primary insomnia 11/10/2018 Irritable bowel syndrome wit h both constipation and diarrhea 10/20/2016 Type 2 diabetes mellitus wit h hemoglobin A1c goal of less than 8.0% 07/24/2013 Overview: ICD-10 update of inactive term BPH without obstruction/lower urinary tract symp toms 02/26/2010 DYSLIPIDEMIA, GOAL LDL BELOW 100 10/07/2009 Overview: Per Lipid Taxonomy. HTN, GOAL BELOW 140/90 09/23/2009 Overview: Modified per HTN protocol #16. CEREBROVASCULAR DZ, POST-STROKE 01/29/2009 Overview: Modified per CVA protocol #8 LOW HDL 04/14/2008 ADVANCE DIRECTIVE INFORMATION 01/10/2007 Overview: No, Advance Directive brochure given to patient at prior appointment. Cervical spondylosis 05/17/2006 Brachial neuritis 05/17/2006 CERVICAL DISC DISPLACMNT 03/03/2006 Cyst of kidney, acquired 10/09/2003 Internal hemorrhoids Hypothyroidism DIVERTICULITIS OF COLON Disc disorder of lumbar region Overview: L5-S1 Colon polyps documented as of this encounter (statuses as of 08/15/2024) Resolved Problems Problem Noted Date Diagnosed Date Resolved Date Thrombocytopenia 01/14/2022 01/14/2022 Obesity, Class II, BMI 35-39 .9, isolated (see actual BMI) 03/31/2010 05/20/2017 Overview: Per Obesity Protocol, #19 HTN, GOAL BELOW 130/80 09/09/200909/23 Overview: Modified per HTN protocol #16. Ill-defined cerebrovascular disease 01/30/2009 01/30/2009 Major depressive disorder 12/14/2007 Overview: ICD-10 update of inactive term Chest pain 12/07/2007 12/05/2014 Cerebrovascular event, ill-d efined, within last 8 weeks 12/06/2007 01/31/2009 Overview: Modified per CVA protocol #8 Mixed dyslipidemia 12/06/200710/07/ 9 Overview: Per Lipid Taxonomy. 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 documented as of this encounter (statuses as of 08/15/2024) Immunizations Name Administration Dates Next Due COVID-19 mRNA, LNP-s, No Pre serve, 2-Dose Series (AeroSurgical) 08/12/2021,12/28/2020,12/02/2020 COVID-19, MRNA-LNP, 23-24, P F, 30 MCG/0.3 mL, 12 YRS AND ABOVE, IM (PFIZER-Comirnaty) [...] Recorded Sex Assigned at Not on file Gender Identity Not on file Sexual Orientation Not on file Job Start Date Occupation Industry Not on file Not on file Not on file documented as of this encounter Progress Notes * Carlota Walton, [facility] - 08/15/2024 10:20 AM EDT Medication Therapy Disease Management - Anticoagulation Patient: Juanito Yoon | : 1945 Subjective Patient-Reported Symptoms: Patient Findings Negatives: Signs/symptoms of thrombosis, Signs/symptoms of bleeding, Change in health, Change in alcohol use, Change in activity, Upcoming invasive procedure, Missed doses, Extra doses, Change in medications, Change in diet/appetite, Bruising Objective Current Warfarin Dose As of 08/15/2024 Warfarin maintenance plan: 3 mg (3 mg x 1) every Mon, Wed, Fri; 6 mg (3 mg x 2) all other days INR Result As of 08/15/2024 INR goal: 2.0-3.0 INR used for dosin.0 (08/15/2024) Assessment & Plan Warfarin Plan As of 08/15/2024 Full warfarin instructions: 3 mg every Mon, Wed, Fri; 6 mg all other days No change documented: Carlota Walton RPh Next INR check: 09/19/2024 Repeat PT/INR in 5 week(s) Weekly dose: not changed Additional Dosing Information: I spent a total of 10-19 minutes (exact time 10 mins) on the date of service in preparation, delivery, and documentation of the care provided to Juanito Yoon excluding any time spent in the performance of separately billed services or time spent by another provider/QHP. Carlota Walton RPh Clinical Pharmacist 08/15/2024, 10:20 AM documented in this encounter Plan of Treatment Upcoming Encounters Date Type Department Care Team (Late st Contact Info) Description 09/19/2024 10:30 AM EST Anticoagulation Pharmacy, [address] [place] [address] [place] [address] 12/14/2024 9:00 AM EST Office Visit Gastroenterology, [address] [place] [address] Berenice Montano CRNP [address] [place] [address] [place] [address] 12/19/2024 1:00 PM EST Office Visit Family Medicine [address] [place] [phone] Mukesh Hernández CRNP [address] [place] [address] [place] [address] 12/26/2024 10:00 AM EDT Office Visit Cardiology, [address] [place] [address] Nellie Frausto PA-C [address] [place] [address] 07/17/2025 1:40 PM EDT Office Visit [address] [place] [phone] Neo Han MD [address] [place] [address] [place] [address] Scheduled Procedures Name Priority Associated Diagnoses Date/Ti [...] 10/26/2019, 01/0 06/2020, 11/22/2015, Additional history exists Diabetic Eye Exam 11/12/2024 11/12/2023, , 08/27/2021, Additional history exists HbA1c 01/01/2025 07/04/2024, 04/18, 01/11/2023, Additional history exists Albumin/Creatinine Ratio 07/04/2025 024, 05/11/2023, 05/20/2022, Additional history exists GFR 07/04/2025 07/04/2024, 0406/2024, 10/04/2023, Additional history exists TSH 07/04/2025 07/04/2024, 0702/2023, 05/20/2022, Additional history exists DTap/Tdap Vaccines (2 - Td or Tdap) 05/12/2029 05/12/2019, 01/10/2007, 10/18/1992 RETIRED - COLONOSCOPY-EVERY 5 YRS AGES 18-100 Discontinued 10/26/2019, 10/26/2019, 11/22/2015, Additional history exists Pneumococcal Vaccine: 65+ Years Completed 07/16/2020, 05/07/2017, 08/04/2005 HPV (Gardasil) [...] Comments INR FINGERSTICK, POINT OF CARE STAT 08/15/2024 10:23 AM EDT Chronic ischemic heart disease HTN, goal below 130/80 Frequent PVCs Apical mural thrombus Anticoagulation management encounter documented in this encounter Results * INR FINGERSTICK, POINT OF CARE (08/15/2024 10:23 AM EDT) Fingerstick INR 3.0 INR 10:24 AM EDT [facility] [place] 55-00 Blood 08/15/2024 10:2 3 AM EDT 08/15/2024 10:24 AM EDT Narrative [facility] [place] 55-00 - 08/15/2024 10:24 AM EDT Therapeutic ranges for non-operative patients: Prophylaxsis/treatment of DVT: (Range:2.0-3.0) Treatment of pulmonary embolism:(Range:2.0-3.0) Prevention of systemic embolism from: -tissue heart valves -acute myocardial infarction -valvular heart disease -atrial fibrillation (Range: 2.0-3.0) Mechanical prosthetic valves: (Range: 2.5-3.5) Carlota Walton [facility] LAB POINT OF CARE TEST DOCKED DEVICE UNSOLICITED RESULTS [facility] 55-[address] [place] [address] [place] [address] documented in this encounter Visit Diagnoses Diagnosis [...] 2:54 PM 12/14/2007 5:34 PM Care Teams Teacher Of Gifted Students Relationship Specialty Start Date End Date Neo Han MD [address] [place] [address] [place] [address] PCP - General Family Medicine 07/19/13 documented as of this encounter"
--- OUTSIDE RECORDS SUMMARY | 2024-12-29 02:46 | External Medical Summary | Summary of Care ---
Author Name Unknown Organization [facility] Address [address] [place] [address] Phone [phone] Care Team Providers Care Director Of Restaurant Name Role Phone Neo Deal MD Primary Care Provide r Reason for Visit * Reason Onset Date Comments eRx-Medication Refill Medication Pre-auth 07/05/2024 Ozempic (0.2 5 or 0.5 MG/DOSE) 2 MG/3ML Solution Pen-injector (Semaglutide(0.25 or 0.5MG/DOS)) Encounter Details Date Type Department Care Team (Late st Contact Info) Description 07/05/2024 Telephone Family [address] [phone] Neo Deal MD [address] [place] [address] [place] [address] eRx-Medication Refill; Medication Pre-auth... Allergies Active Allergy Reactions Criticality Noted Date Comments Niacin 01/07/2022 Other reaction(s): ITCHY SPLOTCHY RASH Niacin Er Flushing 09/04/2010 documented as of this encounter (statuses as of 07/20/2024) Medications Medication Sig Dispensed Refills Start Date End Date Status FIBER FORMULA PO CAPS Take 1 Cap by mouth daily. Active LANCETS MISCIndications: Diabetes mellitus type 2, diet-controlled (HCC) Use once daily as directed Dx 250.00 1 Box 5 3 Active Cyanocobalamin (VITAMIN B-12) 1000 MCG Tablet Take 1 Tablet by mouth in the morning. 9 Active Blood Glucose Monitoring Suppl (LanyrdTOUCH VERIO) w/Device KIT Test daily E11.9 1 Kit 0 Active OneTouch UltraSoft LancetsIndicatio ns:Type 2 diabetes mellitus with hemoglobin A1c goal of less than 8.0% (HCC) Test daily. E11.9 100 Each 1 1 Active Acetaminophen 325 MG Oral Tablet (Tylenol) Take 2 Tablets by mouth every 6 hours as needed. 2 Active Advanced Probiotic Oral Capsule Take by mouth 2 Capsules daily . For 10 days Active [employer] In Vitro Strip (Glucose Blood)Indication s:Type 2 diabetes mellitus with hemoglobin A1c goal of less than 8.0% (HCC) Test daily E11.9 100 Strip 1 2 Active Sildenafil Citrate 100 MG Oral Tablet (Viagra)Indicati ons:Impotence of organic origin One tablet as needed for erectile dysfunction 6 Tablet 6 3 Active Levothyroxine Sodium 25 MCG Oral Tablet (Levoxyl)Indicat ions:Hypothyroid ism Take 1 Tablet by mouth daily. (at least 30 min prior to breakfast or other meds) 90 Tablet 4 Active Warfarin Sodium 3 MG Oral Tablet (Coumadin) Take 1-2 tablets by mouth daily as directed by anticoagulation clinic 60 Tablet 1 4 Active Fenofibrate Micronized 134 MG Oral CapsuleIndicatio ns:Lipoprotein deficiency Take 1 Capsule by mouth in the morning. 90 Capsule 1 4 Active Metoprolol Succinate ER 50 MG Oral Tablet Extended Release 24 Hour (toPROL XL) Take 1 Tablet by mouth in the morning. 90 Tablet 3 4 Active Clopidogrel Bisulfate 75 MG Oral Tablet (pLAVix) Take 1 Tablet by mouth. In the morning. 4 Active Atorvastatin Calcium 40 MG Oral Tablet (Lipitor)Indicat ions:Dyslipidemi a, goal LDL below 100 TAKE ONE TABLET DAILY 90 Tablet 2 4 Active Citalopram Hydrobromide 40 MG Oral Tablet (CeleXA)Indicati ons:Major depressive disorder, recurrent, in partial remission (HCC) TAKE 1 TABLET BY MOUTH IN THE MORNING 90 Tablet 3 4 Active Pantoprazole Sodium 40 MG Oral Tablet Delayed Release (Protonix) TAKE ONE TABLET BY MOUTH EVERY MORNING 90 Tablet 1 4 Active Ozempic (0.25 or 0.5 MG/DOSE) 2 MG/3ML Solution Pen-injector (Semaglutide(0.2 5 or 0.5MG/DOS)) Inject 0.5 mg under the skin once a week. 3 mL 5 4 Active traZODone HCl 50 MG Oral Tablet (Desyrel)Indicat ions:Primary insomnia TAKE ONE TABLET BY MOUTH AT BEDTIME 90 Tablet 1 4 Active Ozempic (0.25 or 0.5 MG/DOSE) 2 MG/3ML Solution Pen-injector (Semaglutide(0.2 5 or 0.5MG/DOS)) Inject 0.25 mg under the skin once a week. 3 mL 5 3 024 Discontinued Enalapril Maleate 2.5 MG Oral Tablet (Vasotec) TAKE ONE TABLET TWICE DAILY 180 Tablet 3 3 024 Discontinued traZODone HCl 50 MG Oral Tablet (Desyrel)Indicat ions:Primary insomnia TAKE ONE TABLET BY MOUTH AT BEDTIME 90 Tablet 1 4 024 Discontinued documented as of this encounter (statuses as of 07/20/2024) Active Problems Problem Noted Date Diagnosed Date Chronic ischemic heart disease 02/04/2024 HTN, goal below 130/80 02/04/2024 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 (TAYLOR) 01/11/2023 Systolic congestive heart failure 01/11/2023 S/P drug eluting coronary stent placement 2022 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 Coronary artery disease invo lving [place] coronary artery of [place] heart without angina pectoris 01/11/2023 Incisional hernia, [...] as of this encounter (statuses as of 07/20/2024) Resolved Problems Problem Noted Date Diagnosed Date [...] CVA protocol #8 Mixed dyslipidemia 12/06/2007 9 Overview: Per Lipid Taxonomy. 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 documented as of this encounter (statuses as of 07/20/2024) Immunizations Name Administration Dates Next Due COVID-19 mRNA, LNP-s, No Pre serve, 2-Dose Series ([employer]) 08/12/2021,12/28/2020,12/02/2020 COVID-19, MRNA-LNP, 23-24, P F, 30 MCG/0.3 mL, 12 YRS AND ABOVE, IM [facility] 07/30/2023 Covid-19, Mrna, Lnp-s, Pf, B ivalent, 30 Mcg, IM, 12 yrs and above ([employer]) 07/21/2022 Pneumococcal Conjugate Vacc, 13 Valent (Prevnar) [...] encounter Miscellaneous Notes * Telephone Encounter - Kitty Lynn OSA - 07/20/2024 1:02 PM EDT Patient has been notified of the message. Patient has no further questions. * Telephone Encounter - Nellie Stokes CPhT - 07/20/2024 9:22 AM EDT Checked status of prior authorization for Ozempic through CMM. Left message on voicemail for patient to call back. Please make patient aware Ozempic was approved until: 07/19/2025. Pharmacy also madeaware of approval. Thank you, Nellie Stokes Detonator Maker [facility] 07/20/2024,9:22 AM * Telephone Encounter - Eliceo Marcano CPhT - 07/19/2024 11:54 AM EDT Submitted information in previous note via CMM ([place]wing: [id number]).. Awaiting payer response. We will follow-up with insurance starting 07/20. Per [facility] request, if no decision is received from insurance by 07/24, we will route back to the [facility] after clarifying with the pharmacy that the claim is still not processing. Thank you, Toy Marcano ([facility]) Performance Improvement Manager III [facility] ([facility]) 07/19/2024, 11:54 AM * Telephone Encounter - Didi Barney [facility] - 07/19/2024 10:57 AM EDT Please submit PA. Include the following documentation: 07/04 A1c 06/13/24 OV note Please copy and paste the following information into PA form: Continuation of therapy What other drugs is there medical record documentation of therapeutic failure on, intolerance to, or contraindication to for this condition? Metformin Vinny Deepakalfredomi Jh as urgent: No Diagnosis/ICD-10 Code(s): e11.9 If instantaneous decision is not received after submitting prior auth, please continue to follow upon this and route back to the [facility] pool if no decision is made by the insurance by 07/24, after clarifying with the pharmacy that the claim is still not processing. If PA is denied, please also route back to [facility] pool. Thanks, Didi Barney PharmD Clinical Pharmacist [facility] ([facility]) [phone] 07/19/2024 10:57 AM * Telephone Encounter - Nellie Stokes CPhT - 07/19/2024 10:50 AM EDT This is a new PA request. Upon review of this prior authorization request, I verified this request is appropriate. This is prescribed by a department for which [facility] is authorized to review prior authorizations This is not a duplicate encounter regarding the same prior authorization The patient is planning to use insurance The insurance information listed in previous note is correct and the plan that is requiring prior authorization The insurance does not cover either brand or generic forms of this script as written without prior authorization The insurance does not cover any NDCs of this script without prior authorization RX Estimate tool confirms this script needs prior authorization Of note, there is nothing currently pending in [facility] for this request. Please advise how to proceed. Thank you, Nellie Stokes Detonator Maker [facility] 07/19/2024,10:50 AM * Telephone Encounter - Shari Beltran PHARM Tech - 07/19/2024 9:53 AM EDT Pt said he has been waiting for a week for prior auth. Patient calling to inform doctor that the patient's insurance will not pay for this medication without a completed prior authorization. Did confirm this information with the pharmacy. Pt's current insurance information is as follows: Patient name: Juainto Yoon ID number: [id number] BIN number: [id number] PCN number: [id number] Group number: [id number] Subscriber name: Juanito Yoon Primary or Secondary Insurance:Primary Medication: Ozempic (0.25 or 0.5 MG/DOSE) 2 MG/3ML Solution Pen-injector (Semaglutide(0.25 or 0.5MG/DOS)) Reason for Request: [facility] Pharmacy and phone number: [facility] [address] Rx plan and phone number: Is this a new medication for the patient? No. How did the patient obtain the medication on the lastfill? It was a different dose or frequency the last time it was filled. What alternative medications does the pharmacy have in stock?: n/a [place]ari [place] Detonator Maker [facility] ([facility]) 07/19/2024,9:53 AM * Telephone Encounter - Neo Deal MD - 07/06/2024 9:32 AM EDT Signed Prescriptions: Disp Refills Ozempic (0.25 or 0.5 MG/DOSE) 2 MG/3ML Ashwini*3 mL 5 Sig: Inject 0.5 mg under the skin once a week. Authorizing Provider: NEO DEAL traZODone HCl 50 MG Oral Tablet (Desyrel) 90 Tab*1 Sig: TAKE ONE TABLET BY MOUTH AT BEDTIME Authorizing Provider: NEO DEAL Ordering User: SAMM GUAN * Telephone Encounter - Samm Guan [facility] - 07/06/2024 8:58 AM EDTPending Prescriptions: Disp Refills Ozempic (0.25 or 0.5 MG/DOSE) 2 MG/3ML Ashwini*3 mL 5 Sig: Inject 0.5 mg under the skin once a week. Signed Prescriptions: Disp Refills traZODone HCl 50 MG Oral Tablet (Desyrel) 90 Tab*1 Sig: TAKE ONE TABLET BY MOUTH AT BEDTIME Authorizing Provider: NEO DEAL Ordering User: SAMM GUAN ----- * Telephone Encounter - Samm Guan RPh - 07/06/2024 8:55 AM EDT Dose change recommended for Ozempic. Script pending. Please approve if appropriate and route back to inform the patient. Current dose: 0.25mg Requested dose: 0.5 Reason for request: The lower initial dose (0.25mg weekly) is intended to reduce GI symptoms; it does not provide effective glycemic control. Recommend tapering up to next appropriate dose. Pending Prescriptions: Disp Refills Ozempic (0.25 or 0.5 MG/DOSE) 2 MG/3ML So*3 mL 5 Sig: Inject 0.5 mg under the skin once a week. ThanksSamm PharmD Clinical Pharmacist [facility] ([facility]) [phone] 07/06/2024, 8:56 AM documented in this encounter Plan of Treatment Upcoming Encounters Date Type Department Care Team (Late st Contact Info) Description 08/02/2024 10:50 AM EDT Anticoagulation Pharmacy, [address] [place] [address] [place] [address] 12/14/2024 9:00 AM EST Office Visit Gastroenterology, [facility] [address] [facility] [place] [address] Berenice Montano CRNP [address] [facility] [place] [address] 12/19/2024 1:00 PM EST Office Visit [address] [phone] Mukesh Hernández CRNP [address] [place] [address] [place] [address] 12/26/2024 10:00 AM EDT Office Visit Cardiology, [facility] [address] [facility] [place] [address] Nellie Frausto PA-C [address] [place] [address] [place] [address] 07/17/2025 1:40 PM EDT Office Visit [address] [phone] Neo Deal MD [address] [place] [address] [place] [address] Scheduled Procedures Name Priority Associated Diagnoses Date/Ti [...] 2:54 PM 12/14/2007 5:34 PM Care Teams Director Of Restaurant Relationship Specialty Start Date End Date Neo Deal MD [address] [place] [address] [place] [address] PCP - General Family Medicine 07/19/13 documented as of this encounter
--- OUTSIDE RECORDS SUMMARY | 2024-12-29 02:46 | External Medical Summary | Summary of Care ---
Author Name Unknown Organization [facility] Address [address] [place] [address] Phone [phone] Care Team Providers Care Warper Fixer Name Role Phone Neo Han MD Primary Care Provide r Reason for Visit * Reason Onset Date Comments Appointment 08/14/2024 Encounter Details Date Type Department Care Team (Late st Contact Info) Description 08/14/2024 Telephone Family Medicine [address] [phone] Neo Han MD [address] [place] [address] [place] [address] Appointment Allergies Active Allergy Reactions Criticality Noted Date Comments Niacin 01/07/2022 Other reaction(s): ITCHY SPLOTCHY RASH Niacin Er Flushing 09/04/2010 documented as of this encounter (statuses as of 08/14/2024) Medications Medication Sig Dispensed Refills Start Date End Date Status FIBER FORMULA PO CAPS Take 1 Cap by mouth daily. Active LANCETS MISCIndications:Di abetes mellitus type 2, diet-controlled (HCC) Use once daily as directed Dx 250.00 1 Box 5 07/24/2013 Active Cyanocobalamin (VITAMIN B-12) 1000 MCG Tablet Take 1 Tablet by mouth in the morning. 05/16/2019 Active Blood Glucose Monitoring Suppl (ONETOUCH VERIO) [...] Active OneTouch Verio In Vitro Strip (Glucose Blood)Indications: Type 2 diabetes mellitus with hemoglobin A1c goal of less than 8.0% (HCC) Test daily E11.9 100 Strip 1 07/20/2022 Active Sildenafil Citrate 100 MG Oral Tablet (Viagra)Indication s:Impotence of organic origin One tablet as needed for erectile dysfunction 6 Tablet 6 12/28/2022 Active Levothyroxine Sodium 25 MCG Oral Tablet (Levoxyl)Yeseniatio ns:Hypothyroidism Take 1 Tablet by mouth daily. [...] Active Atorvastatin Calcium 40 MG Oral Tablet (Lipitor)Yeseniatio ns:Dyslipidemia, goal LDL below 100 TAKE ONE [...] as of this encounter (statuses as of 08/14/2024) Active Problems Problem Noted Date Diagnosed Date Chronic ischemic heart disease 02/04/2024 HTN, goal below 130/80 02/04/2024 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 (TAYLOR) 01/11/2023 Systolic congestive heart failure 01/11/2023 S/P drug eluting coronary stent placement 2022 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 Coronary artery disease invo lving [place] coronary artery of [place] heart without angina pectoris 01/11/2023 Incisional hernia, [...] as of this encounter (statuses as of 08/14/2024) Resolved Problems Problem Noted Date Diagnosed Date [...] as of this encounter (statuses as of 08/14/2024) Immunizations Name Administration Dates Next Due COVID-19 mRNA, LNP-s, No Pre serve, 2-Dose Series ([employer]ovo) 08/12/2021,12/28/2020,12/02/2020 COVID-19, MRNA-LNP, 23-24, P F, 30 [...] encounter Miscellaneous Notes * Telephone Encounter - Carlota Walton RPh - 08/14/2024 11:08 AM EDT Patient Phone Numbers Returned call to clinic, appointment rescheduled for 08/15. Carlota Walton RPh, PharmD Clinical Pharmacist - [facility] Medication Therapy [facility] Management [facility] 08/14/2024, 11:10 AM [phone] * Telephone Encounter - Maite Noel OSA - 08/14/2024 11:03 AM EDT Pt needs a call back to reschedule apt today with [facility] due to car problems. Please advise. documented in this encounter Plan of Treatment Upcoming Encounters Date Type Department Care Team (Late st Contact Info) Description 08/15/2024 10:30 AM EDT Anticoagulation Pharmacy, [address] [place] [address] [place] [address] 12/14/2024 9:00 AM EST Office Visit Gastroenterology, [facility] [address] [facility] [place] [address] Berenice Montano CRNP [address] [place] [address] 12/19/2024 1:00 PM EST Office Visit Family Medicine [address] [place] [phone] Mukesh Hernández CRNP [address] [place] [address] [place] [address] 12/26/2024 10:00 AM EDT Office Visit Cardiology, [facility] [address] [facility] [place] [address] Nellie Frausto PA-C [address] [place] [address] [place] [address] 07/17/2025 1:40 PM EDT Office Visit Family Medicine [address] [place] [phone] Neo Han MD [address] [place] [address] [place] [address] Scheduled Procedures Name Priority Associated Diagnoses Date/Ti [...] 2:54 PM 12/14/2007 5:34 PM Care Teams Warper Fixer Relationship Specialty Start Date End Date Neo Han MD [address] [place] [address] [place] [address] PCP - General Family Medicine 07/19/13 documented as of this encounter
--- OUTSIDE RECORDS SUMMARY | 2024-12-29 02:46 | External Medical Summary | Summary of Care ---
Author Name Unknown Organization [facility] Address [address] [place] [address] Phone [phone] Care Team Providers Care Counseling Department Chair Name Role Phone Neo Han MD Primary Care Provide r Reason for Visit * Reason Comments Dosage Adjustment In Person (Anticoag Cl inic) Encounter Details Date Type Department Care Team (Latest Contact Info) Description 09/19/2024 10:30 AM [facility] Anticoagulation Pharmacy, [address] [place] [address] [place] [address] Anticoagulation management encounter*; Chronic ischemic heart disease; HTN, goal below 130/80; Frequent PVCs; Apical mural thrombus Allergies Active Allergy Reactions Criticality Noted Date Comments Niacin 01/07/2022 Other reaction(s): ITCHY SPLOTCHY RASH Niacin Er (Antihyperlipidemic) Flushing 09/04/2010 documented as of this encounter (statuses as of 09/19/2024) Medications FIBER FORMULA PO CAPS Take 1 [...] Capsules daily . For 10 days Active [employer] In Vitro Strip (Glucose Blood)Indication s:Type 2 [...] week. 3 mL 5 07/06/20 24 Active traZODone HCl 50 MG Oral Tablet (Desyrel)Indicat ions:Primary insomnia TAKE ONE TABLET BY MOUTH AT BEDTIME 90 Tablet 1 07/06/20 24 Active Enalapril Maleate 2.5 MG Oral Tablet (Vasotec) TAKE ONE TABLET TWICE DAILY 180 Tablet 3 07/07/20 24 Active Warfarin Sodium 3 MG Oral Tablet (Coumadin) Take 1-2 tablets by mouth daily as directed by anticoagulation clinic 60 Tablet 5 08/07/20 24 Active documented as of this encounter (statuses as of 09/19/2024) Active Problems Problem Noted Date Diagnosed Date Chronic ischemic heart disease 02/04/2024 HTN, goal below 130/80 02/04/2024 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 (TAYLOR) 01/11/2023 Systolic congestive heart failure 01/11/2023 S/P drug eluting coronary stent placement 2022 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 Coronary artery disease invo lving [place] coronary artery of [place] heart without angina pectoris 01/11/2023 Incisional hernia, [...] as of this encounter (statuses as of 09/19/2024) Resolved Problems Problem Noted Date Diagnosed Date [...] as of this encounter (statuses as of 09/19/2024) Immunizations Name Administration Dates Next Due COVID-19 mRNA, LNP-s, No Pre serve, 2-Dose Series ([employer]) 08/12/2021,12/28/2020,12/02/2020 COVID-19, MRNA-LNP, PF, 30 M CG/0.3 mL, 12 YRS AND ABOVE, IM ([facility]) 07/30/2023 Covid-19, Mrna, Lnp-s, Pf, B ivalent, [...] this encounter Progress Notes * Carlota Walton, [facility] - 09/19/2024 10:25 AM EST Medication Therapy Disease Management - Anticoagulation Patient: Juanito Yoon | : 1945 Subjective Patient-Reported Symptoms: Patient Findings Negatives: Signs/symptoms of thrombosis, Signs/symptoms of bleeding, Change in health, Change in alcohol use, Change in activity, Upcoming invasive procedure, Missed doses, Extra doses, Change in medications, Change in diet/appetite, Bruising Objective Current Warfarin Dose As of 09/19/2024 Warfarin maintenance plan: 3 mg (3 mg x 1) every Mon, Wed, Fri; 6 mg (3 mg x 2) all other days INR Result As of 09/19/2024 INR goal: 2.0-3.0 INR used for dosin.3 (09/19/2024) Assessment & Plan Warfarin Plan As of 09/19/2024 Full warfarin instructions: 3 mg every Mon, Wed, Fri; 6 mg all other days No change documented: Carlota Walton RPh Next INR check: 10/31/2024 Repeat PT/INR in 6 week(s) Weekly dose: not changed Additional Dosing Information: I spent a total of 10-19 minutes (exact time 10 mins) on the date of service in preparation, delivery, and documentation of the care provided to Juanito Yoon excluding any time spent in the performance of separately billed services or time spent by another provider/QHP. Carlota Walton RP Clinical Pharmacist 09/19/2024, 10:25 AM documented in this encounter Plan of Treatment Upcoming Encounters Date Type Department Care Team (Late st Contact Info) Description 10/31/2024 10:30 AM EST Anticoagulation Pharmacy, [address] [place] [address] [place] [address] 12/14/2024 9:00 AM EST Office Visit Gastroenterology, [facility] [address] [place] [address] Berenice Montano CRNP [address] [place] [address] 12/19/2024 1:00 PM EST Office Visit Family [address] [phone] Mukesh Hernández CRNP [address] [place] [address] [place] [address] 12/26/2024 10:00 AM EDT Office Visit Cardiology, [facility] [address] [place] [address] Nellie Frausto PA-C [address] [place] [address] [place] [address] 07/17/2025 1:40 PM EDT Office Visit [address] [phone] Neo Han MD [address] [place] [address] [place] [address] Scheduled Procedures Name Priority Associated Diagnoses Date/Ti [...] Comments INR FINGERSTICK, POINT OF CARE STAT 09/19/2024 10:28 AM EST Chronic ischemic heart disease HTN, goal below 130/80 Frequent PVCs Apical mural thrombus Anticoagulation management encounter documented in this encounter Results * INR FINGERSTICK, POINT OF CARE (09/19/2024 10:28 AM EST) Fingerstick INR 2.3 INR 10:38 AM EST [facility] 55-00 Blood 09/19/2024 10:2 8 AM EST 09/19/2024 10:38 AM EST Narrative [facility] - 09/19/2024 10:38 AM EST Therapeutic ranges for non-operative patients: Prophylaxsis/treatment of DVT: (Range:2.0-3.0) Treatment of pulmonary embolism:(Range:2.0-3.0) Prevention of systemic embolism from: -tissue heart valves -acute myocardial infarction -valvular heart disease -atrial fibrillation (Range: 2.0-3.0) Mechanical prosthetic valves: (Range: 2.5-3.5) Carlota Walton [facility] POINT OF CARE TEST DOCKED DEVICE UNSOLICITED RESULTS Final Result [facility] [address] [place] [address] [place] [phone] documented in this encounter Visit Diagnoses Diagnosis [...] 2:54 PM 12/14/2007 5:34 PM Care Teams Counseling Department Chair Relationship Specialty Start Date End Date Neo Han MD [address] [place] [address] [place] [address] PCP - General Family Medicine 07/19/13 documented as of this encounter"
--- OUTSIDE RECORDS SUMMARY | 2024-12-29 02:46 | External Medical Summary | Summary of Care ---
Author Name Unknown Organization [facility] Address [address] [place] [address] Phone [phone] Care Team Providers Care Signal Repairer Name Role Phone eNo Han MD Primary Care Provide r Reason for Referral * Evaluate & Treat - Unlimited Visits (Within 3 days (urgent)) - Pending Review Specialty Diagnoses / Procedures Referred By Contac t Referred To Contact Hematology/Oncology / Hematology Oncology Diagnoses LV (left ventricular) mural thrombus Dusty Juarez DO [address] [place] [address] Referral ID Status Reason Start Date Expiration Date Visits Requested Visits Authorized [id number] Pending Review Specialty Services Required 05/16/[phone] Question Answer Referral Priority Within 3 days (urgent) Where should this appointment be scheduled? [facility] Reason for Referral Thrombosis/Bruising/Abnormal Coagulation Comments Left ventricular apical thrombus. Failed treatment with Eliquis and warfarin. Encounter Details Date Type Department Care Team (Late st Contact Info) Description 05/15/2024 Telephone Cardiology, [facility] [address] [place] [address] Dusty Juarez DO [address] [place] [address] Allergies Active Allergy Reactions Criticality Noted Date Comments Niacin 01/07/2022 Other reaction(s): ITCHY SPLOTCHY RASH Niacin Er Flushing 09/04/2010 documented as of this encounter (statuses as of 07/24/2024) Medications Medication Sig Dispensed Refills Start Date [...] hemoglobin A1c goal of less than 8.0% ([facility]) Test daily. E11.9 100 Each 1 10/02/20 21 Active Acetaminophen 325 MG Oral Tablet (Tylenol) Take 2 Tablets by mouth every 6 hours as needed. 01/13/20 22 Active Advanced Probiotic Oral Capsule Take by mouth 2 Capsules daily . For 10 days Active Alchimeruch Verio In Vitro Strip (Glucose Blood)Indication s:Type 2 diabetes mellitus with hemoglobin A1c goal of less than 8.0% ([facility]) Test daily E11.9 100 Strip 1 07/20/20 22 Active Sildenafil Citrate 100 MG Oral Tablet (Viagra)Indicati ons:Impotence of organic origin One tablet as needed for erectile dysfunction 6 Tablet 6 12/29/19 23 Active Ozempic (0.25 or 0.5 MG/DOSE) 2 MG/3ML Solution Pen-injector (Semaglutide(0.2 5 or 0.5MG/DOS)) Inject 0.25 mg under the skin once a week. 3 mL 5 06/23/20 23 024 Discontinued Atorvastatin Calcium 40 MG Oral Tablet (Lipitor)Indicat ions:Dyslipidemi a, goal LDL below 100 TAKE ONE TABLET DAILY 90 Tablet 3 08/05/20 23 024 Discontinued Citalopram Hydrobromide 40 MG Oral Tablet (CeleXA)Indicati ons:Major depressive disorder, recurrent, in partial remission (HCC) TAKE 1 TABLET BY MOUTH IN THE MORNING 90 Tablet 3 08/05/20 23 024 Discontinued Enalapril Maleate 2.5 MG Oral Tablet (Vasotec) TAKE ONE TABLET TWICE DAILY 180 Tablet 3 08/05/20 23 024 Discontinued Fenofibrate Micronized 134 MG Oral CapsuleIndicatio ns:Lipoprotein deficiency Take 1 Capsule by mouth in the morning. 90 Capsule 3 08/05/20 23 024 Discontinued Clopidogrel Bisulfate 75 MG Oral Tablet (pLAVix) TAKE 1 TABLET BY MOUTH IN THE MORNING 90 Tablet 3 08/05/20 23 024 Discontinued Levothyroxine Sodium 25 MCG Oral Tablet (Levoxyl)Indicat ions:Hypothyroid ism Take 1 Tablet by mouth daily. (at least 30 min prior to breakfast or other meds) 90 Tablet 1 11/02/19 24 024 Discontinued Metoprolol Succinate ER 100 MG Oral Tablet Extended Release 24 Hour (toPROL XL) Take 1 Tablet by mouth in the morning. 90 Tablet 3 11/29/19 24 024 Discontinued traZODone HCl 50 MG Oral Tablet (Desyrel)Indicat ions:Primary insomnia TAKE ONE TABLET BY MOUTH AT BEDTIME 90 Tablet 1 01/21/20 24 024 Discontinued Enoxaparin Sodium 100 MG/ML Injection Solution Prefilled Syringe (Lovenox)Indicat ions:Apical mural thrombus Inject 90 mg under the skin in the morning and 90 mg before bedtime. 6 mL 1 02/07/20 24 024 Discontinued Pantoprazole Sodium 40 MG Oral Tablet Delayed Release (Protonix) TAKE ONE TABLET BY MOUTH EVERY MORNING 90 Tablet 1 03/21/20 24 024 Discontinued Warfarin Sodium 3 MG Oral Tablet (Coumadin) Take 1-2 tablets by mouth daily as directed by anticoagulation clinic 60 Tablet 1 05/08/20 24 024 Discontinued(Re fill) documented as of this encounter (statuses as of 07/24/2024) Active Problems Problem Noted Date Diagnosed Date Chronic ischemic heart disease 02/04/2024 HTN, goal below 130/80 02/04/2024 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 ([facility]) 01/11/2023 Systolic congestive heart failure 01/11/2023 S/P drug eluting coronary stent placement 2022 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 Coronary artery disease invo lving [place] coronary artery of [place] heart without angina pectoris 01/11/2023 Incisional hernia, [...] as of this encounter (statuses as of 07/24/2024) Resolved Problems Problem Noted Date Diagnosed Date [...] as of this encounter (statuses as of 07/24/2024) Immunizations Name Administration Dates Next Due COVID-19 mRNA, LNP-s, No Pre serve, 2-Dose Series ([employer]) 08/12/2021,12/28/2020,12/02/2020 COVID-19, MRNA-LNP, 23-24, P F, 30 MCG/0.3 mL, 12 YRS AND ABOVE, IM ([facility]) 07/30/2023 Covid-19, Mrna, Lnp-s, Pf, B ivalent, 30 Mcg, IM, 12 yrs and above ([employer]) 07/21/2022 Pneumococcal Conjugate Vacc, 13 Valent (Prevnar) [...] encounter Miscellaneous Notes * Telephone Encounter - Dusty Juarez DO - 05/16/2024 3:45 PM EDT Referral placed. * Telephone Encounter - Lorraine Rosado OSA - 05/16/2024 3:26 PM EDT Routed to Dr Juarez to place the order so that appointment can be scheduled. * Telephone Encounter - Lorraine Rosado OSA - 05/16/2024 3:[address] an order for the referral to hem/onc. * Telephone Encounter - Ronak Carrion OSA - 05/16/2024 9:50 AM EDT I do not schedule the HEME appts. Please have patient call to schedule. Thank you. * Telephone Encounter - Ronak Carrion OSA - 05/16/2024 7:39 AM EDT I am unable to schedule Heme appts patient will have to call and/or office will call. Pldionicio call [phone] * Telephone Encounter - Fabiana Ruiz NRCMA - 05/15/2024 3:54 PM EDT Pt notified via phone and states understanding. Please call pt with hematology appt directly. JACOB Conley * Telephone Encounter - Fabiana Ruiz NRCMA - 05/15/2024 3:53 PM EDT ----- Message from Dusty Juarez DO sent at 05/15/2024 3:04 PM EDT ----- Echocardiogram demonstrates apical mural thrombus unchanged from prior study dated February 04, 2024. Recommend Hematology consultation (3 day) due to persistent apical thrombus to consider alternativeanticoagulation options. documented in this encounter Plan of Treatment Upcoming Encounters Date Type Department Care Team (Late st Contact Info) Description 08/02/2024 10:50 AM EDT Anticoagulation Pharmacy, [address] [place] [address] [place] [address] 12/14/2024 9:00 AM EST Office Visit Gastroenterology, [facility] [address] [facility] [place] [address] Berenice Montano CRNP [address] [facility] [place] [address] 12/19/2024 1:00 PM EST Office Visit Family Medicine [address] [place] [phone] Mukesh Hernández CRNP [address] [place] [address] [place] [address] 12/26/2024 10:00 AM EDT Office Visit Cardiology, [facility] [address] [place] [address] Nellie Frausto PA-C [address] [place] [address] 07/17/2025 1:40 PM EDT Office Visit Family Medicine [address] [place] [phone] Neo Han MD [address] [place] [address] [place] [address] Scheduled Procedures Name Priority Associated Diagnoses Date/Ti me ESOPHAGOGASTRODUODENOSCOPY ( EGD), FLEXIBLE, TRANSORAL, DIAGNOSTIC Recall Portal hypertensive gastropathy (HCC) Scheduled Referrals Name Type Priority Associated Diagnoses Orde r Schedule HEMATOLOGY/ONCOLOGY REFERRAL OP Referral Within 3 days (urgent) LV (left ventricular) mural thrombus Ordered: 05/16/2024 Health Maintenance Due Date Last Done Comments [...] as of this encounter Visit Diagnoses Diagnosis LV (left ventricular) mural thrombus- Primary Acute myocardial infarction, unspecified site, episode of care unspecified documented in this [...] 2:54 PM 12/14/2007 5:34 PM Care Teams Signal Repairer Relationship Specialty Start Date End Date Neo Han MD [address] [place] [address] [place] [address] PCP - General Family Medicine 07/19/13 documented as of this encounter
--- OUTSIDE RECORDS SUMMARY | 2024-12-29 02:46 | External Medical Summary | Summary of Care ---
Author Name Unknown Organization [facility] Address [address] [place] [address] Phone [phone] Care Team Providers Care [employer] Coxswain Name Role Phone Neo Deal MD Primary Care Provide r Reason for Visit * Reason Onset Date Comments eRx-Medication Refill Medication Pre-auth 07/05/2024 Ozempic (0.2 5 or 0.5 MG/DOSE) 2 MG/3ML Solution Pen-injector (Semaglutide(0.25 or 0.5MG/DOS)) Encounter Details Date Type Department Care Team (Late st Contact Info) Description 07/05/2024 Telephone Family [address] [phone] Neo Deal MD [address] [place] [address] [place] [address] eRx-Medication Refill; Medication Pre-auth... Allergies Active Allergy Reactions Criticality Noted Date Comments Niacin 01/07/2022 Other reaction(s): ITCHY SPLOTCHY RASH Niacin Er Flushing 09/04/2010 documented as of this encounter (statuses as of 07/19/2024) Medications Medication Sig Dispensed Refills Start Date End Date Status FIBER FORMULA PO CAPS Take 1 Cap by mouth daily. Active LANCETS MISCIndications: Diabetes mellitus type 2, diet-controlled (HCC) Use once daily as directed Dx 250.00 [address] 3 Active Cyanocobalamin (VITAMIN B-12) 1000 MCG Tablet Take 1 Tablet by mouth in the morning. 9 Active Blood Glucose Monitoring Suppl (relocalityTOUCH VERIO) w/Device KIT Test daily E11.9 1 [...] Capsules daily . For 10 days Active [employer] VerTNT [employer]d In Vitro Strip (Glucose Blood)Indication s:Type 2 [...] as of this encounter (statuses as of 07/19/2024) Active Problems Problem Noted Date Diagnosed Date Chronic ischemic heart disease 02/04/2024 HTN, goal below 130/80 02/04/2024 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 ([facility]) 01/11/2023 Systolic congestive heart failure 01/11/2023 S/P drug eluting coronary stent placement 2022 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 Coronary artery disease invo lving [place] coronary artery of [place] heart without angina pectoris 01/11/2023 Incisional hernia, [...] as of this encounter (statuses as of 07/19/2024) Resolved Problems Problem Noted Date Diagnosed Date [...] as of this encounter (statuses as of 07/19/2024) Immunizations Name Administration Dates Next Due COVID-19 mRNA, LNP-s, No Pre serve, 2-Dose Series ([employer]) 08/12/2021,12/28/2020,12/02/2020 COVID-19, MRNA-LNP, 23-24, P F, 30 MCG/0.3 mL, 12 YRS AND ABOVE, IM ([facility] 07/30/2023 Covid-19, Mrna, Lnp-s, Pf, B ivalent, 30 Mcg, IM, 12 yrs and above ([employer]) 07/21/2022 Pneumococcal Conjugate Vacc, 13 Valent (Prevnar) [...] encounter Miscellaneous Notes * Telephone Encounter - Didi Barney [facility] - 07/19/2024 10:57 AM EDT Please submit PA. Include the following documentation: 07/04 A1c 06/13/24 OV note Please copy and paste the following information into PA form: Continuation of therapy What other drugs is there medical record documentation of therapeutic failure on, intolerance to, or contraindication to for this condition? Metformin Jardiance Deepakalfredomi Jh as urgent: No Diagnosis/ICD-10 Code(s): e11.9 If instantaneous decision is not received after submitting prior auth, please continue to follow upon this and route back to the [facility] if no decision is made by the insurance by 07/24, after clarifying with the pharmacy that the claim is still not processing. If PA is denied, please also route back to [facility] pool. Thanks, Didi Barney, PharmD Clinical Pharmacist Centralized Clinical Pharmacy Services ([facility]) [phone] 07/19/2024 10:57 AM * Telephone Encounter - Nellie Stokes CPhT - 07/19/2024 10:50 AM EDT This is a new PA request. Upon review of this prior authorization request, I verified this request is appropriate. This is prescribed by a department for which [facility] is authorized to review prior authorizations This [...] note, there is nothing currently pending in [facility] for this request. Please advise how to proceed. Thank you, Nellie Stokes Pl Sql Programmer Centralized Clinical Pharmacy Services 07/19/2024,10:50 AM * [...] insurance information is as follows: Patient name: Juanito Yoon ID number: [id number] BIN number: [id number] PCN number: [id number] Group number: [id number] Subscriber name: Juanito Yoon Primary or Secondary Insurance:Primary Medication: Ozempic (0.25 or 0.5 MG/DOSE) 2 MG/3ML Solution Pen-injector (Semaglutide(0.25 or 0.5MG/DOS)) Reason for Request: [facility] Pharmacy and phone number: [address] Rx plan and phone number: Is this a new medication for the patient? No. How did the patient obtain the medication on the lastfill? It was a different dose or frequency the last time it was filled. What alternative medications does the pharmacy have in stock?: n/a Shari Hills Pl Sql Programmer [facility] ([facility]) 07/19/2024,9:53 AM [...] GUAN * Telephone Encounter - Samm Guan RP - 07/06/2024 8:58 AM EDTPending Prescriptions: Disp [...] mg under the skin once a week. Thanks, Samm Guan PharmD Clinical Pharmacist Centralized Clinical Pharmacy Services ([facility]) [phone] 07/06/2024, 8:56 AM documented in this encounter Plan of Treatment Upcoming Encounters Date Type Department Care Team (Late st Contact Info) Description 08/02/2024 10:50 AM EDT Anticoagulation Pharmacy, [address] [place] [address] [place] [address] 12/14/2024 9:00 AM EST Office Visit Gastroenterology, [facility] 132 [facility] [place] [address] Berenice Montano CRNP 132 [facility] [place] [address] 12/19/2024 1:00 PM EST Office Visit Family [address] [place] [phone] Mukesh Hernández CRNP [address] [place] [address] [place] [address] 12/26/2024 10:00 AM EDT Office Visit Cardiology, [facility] [address] [facility] [place] [address] Nellie Frausto PA-C [address] [facility] [place] [address] 07/17/2025 1:40 PM EDT Office Visit Family [address] [place] [phone] Neo Deal MD [address] [place] [address] [place] [address] Scheduled Procedures Name Priority Associated Diagnoses Date/Ti [...] 2:54 PM 12/14/2007 5:34 PM Care Teams [employer] Coxswain Relationship Specialty Start Date End Date Neo Deal MD [address] [place] [address] [place] [address] PCP - General Family Medicine 07/19/13 documented as of this encounter
--- OUTSIDE RECORDS SUMMARY | 2024-12-29 02:46 | External Medical Summary | Summary of Care ---
Author Name Unknown Organization [facility] Address [address] [place] [address] Phone [phone] Care Team Providers Care Technical Services Rep Name Role Phone Juan Deal MD Primary Care Provide r Reason for Visit * Reason Onset Date Comments eRx-Medication Refill Medication Pre-auth 07/05/2024 Ozempic (0.2 5 or 0.5 MG/DOSE) 2 MG/3ML Solution Pen-injector (Semaglutide(0.25 or 0.5MG/DOS)) Encounter Details Date Type Department Care Team (Late st Contact Info) Description 07/05/2024 Refill Family [address] [phone] Juan Deal MD [address] [place] [address] [place] [address] Primary insomnia Allergies Active Allergy Reactions [...] morning. 9 Active Blood Glucose Monitoring Suppl ([employer]OUCH VERIO) w/Device KIT Test daily E11.9 1 [...] Capsules daily . For 10 days Active [employer] In Vitro Strip (Glucose Blood)Indication s:Type 2 [...] thrombus 01/11/2023 Coronary artery disease invo lving [place]z [place] coronary artery of [place] heart without angina pectoris 01/11/2023 Incisional hernia, [...] per CVA protocol #8 Mixed dyslipidemia 12/06/2007 12/21/200 9 Overview: Per Lipid Taxonomy. 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 documented as of this encounter (statuses as of 07/19/2024) Immunizations Name Administration Dates Next Due COVID-19 mRNA, LNP-s, No Pre serve, 2-Dose Series ([employer]) 08/12/2021,12/28/2020,12/02/2020 COVID-19, MRNA-LNP, 23-24, P F, 30 MCG/0.3 mL, 12 YRS AND ABOVE, IM ([facility]) 07/30/2023 Covid-19, Mrna, Lnp-s, Pf, B ivalent, 30 Mcg, IM, 12 yrs and above ([employer]) 07/21/2022 Pneumococcal Conjugate Vacc, 13 Valent (Prevnar) [...] encounter Miscellaneous Notes * Telephone Encounter - Nellie Stokes CPhT - 07/19/2024 10:50 AM EDT This is a new PA request. Upon review of this prior authorization request, I verified this request is appropriate. This is prescribed by a department for which [facility] is authorized to review prior authorizations This [...] note, there is nothing currently pending in [facility] for this request. Please advise how to proceed. Thank you, Nellie Stokes Custodian Supervisor Centralized Clinical Pharmacy Services 07/19/2024,10:50 AM * [...] follows: Patient name: Juanito Yoon ID number: [id number] BIN number: [id number] PCN number: [id number] Group number: [id number] Subscriber name: Juanito Yoon Primary or Secondary Insurance:Primary Medication: Ozempic (0.25 or 0.5 MG/DOSE) 2 MG/3ML Solution Pen-injector (Semaglutide(0.25 or 0.5MG/DOS)) Reason for Request: needs pa Pharmacy and phone number: [address] Rx plan and phone number: Is this a new medication for the patient? No. How did the patient obtain the medication on the lastfill? It was a different dose or frequency the last time it was filled. What alternative medications does the pharmacy have in stock?: n/a Shari Hills Custodian Supervisor Centralized Clinical Pharmacy Services ([facility]) 07/19/2024,9:53 AM * Telephone Encounter - Juan Deal MD - 07/06/2024 9:32 AM EDT Signed Prescriptions: Disp Refills Ozempic (0.25 or 0.5 MG/DOSE) 2 MG/3ML Ashwini*3 mL 5 Sig: Inject 0.5 mg under the skin once a week. Authorizing Provider: JUAN DEAL traZODone HCl 50 MG Oral Tablet (Desyrel) 90 Tab*1 Sig: TAKE ONE TABLET BY MOUTH AT BEDTIME Authorizing Provider: JUAN DEAL Ordering User: GABRIELA GUAN * Telephone Encounter - Gabriela Guan [facility] - 07/06/2024 8:58 AM EDTPending Prescriptions: Disp Refills Ozempic (0.25 or 0.5 MG/DOSE) 2 MG/3ML Ashiwni*3 mL 5 Sig: Inject 0.5 mg under the skin once a week. Signed Prescriptions: Disp Refills traZODone HCl 50 MG Oral Tablet (Desyrel) 90 Tab*1 Sig: TAKE ONE TABLET BY MOUTH AT BEDTIME Authorizing Provider: JUAN DEAL Ordering User: GABRIELA GUAN ----- * Telephone Encounter - Gabriela Guan RPh - 07/06/2024 8:55 AM EDT [...] mg under the skin once a week. Gabriela Hills PharmD Clinical Pharmacist Centralized Clinical Pharmacy Services ([facility]) [phone] 07/06/2024, 8:56 AM documented in this encounter Plan of Treatment Upcoming Encounters Date Type Department Care Team (Late st Contact Info) Description 08/02/2024 10:50 AM EDT Anticoagulation Pharmacy, [address] [place] [address] [place] [address] 12/14/2024 9:00 AM EST Office Visit Gastroenterology, [facility] [address] [place] [address] Berenice Montano CRNP 132 [place] [address] 12/19/2024 1:00 PM EST Office Visit Family Medicine [address] [place] [phone] Mukesh Hernández CRNP [address] [place] [address] [place] [address] 12/26/2024 10:00 AM EDT Office Visit Cardiology, [facility] 132 [facility] [place] [address] Nellie Frausto PA-C [address] [place] [address] 07/17/2025 1:40 PM EDT Office Visit Family Medicine [address] [place] [phone] Juan Deal MD [address] [place] [address] [place] [address] Scheduled Procedures Name Priority Associated Diagnoses Date/Ti [...] 2:54 PM 12/14/2007 5:34 PM Care Teams Technical Services Rep Relationship Specialty Start Date End Date Juan Deal MD [address] [place] [address] [place] [phone] PCP - General Family Medicine 07/19/13 documented as of this encounter
--- OUTSIDE RECORDS SUMMARY | 2024-12-29 02:46 | External Medical Summary ---
Author Name Unknown Address Unknown Organization : Laboratory Report Ordering Provider Test Date Status MAGY JONES 08/15/2024 10:23:55 Final Therapeutic ranges for non-o perative patients:
Prophylaxsis/treatment of DVT: (Range:2.0-3.0)
Treatment of pulmonary embolism:(Range:2.0-3.0)
Prevention of systemic embolism from:
-tissue heart valves
-acute myocardial infarction
-valvular heart disease
-atrial fibrillation
(Range: 2.0-3.0)
Mechanical prosthetic valves: (Range: 2.5-3.5) Observation Date Value Abnormality Reference (Units ) Status INR in Capillary blood by Coagulation assay 08/15/2024 10:23:55 3.0 (INR) Final Performing Location
--- OUTSIDE RECORDS SUMMARY | 2024-12-29 02:46 | External Medical Summary | Summary of Care ---
Author Name Unknown Organization [facility] Address [address] [place] [address] Phone [phone] Care Team Providers Care Travel Agency Manager Name Role Phone Neo Deal MD Primary Care Provide r Reason for Visit * Reason Onset Date Comments eRx-Medication Refill Medication Pre-auth 07/05/2024 Ozempic (0.2 5 or 0.5 MG/DOSE) 2 MG/3ML Solution Pen-injector (Semaglutide(0.25 or 0.5MG/DOS)) Encounter Details Date Type Department Care Team (Late st Contact Info) Description 07/05/2024 Telephone Family [address] [phone] Neo Deal MD [address] [place] [address] [place] [address] eRx-Medication Refill; Medication Pre-auth... Allergies Active [...] morning. 9 Active Blood Glucose Monitoring Suppl (FunnelyTOUCH VERIO) w/Device KIT Test daily E11.9 1 [...] Capsules daily . For 10 days Active [place] [email or web address] In Vitro Strip (Glucose Blood)Indication s:Type 2 [...] thrombus 01/11/2023 Coronary artery disease invo lving [place] coronary artery of [place] heart without angina pectoris 01/11/2023 Incisional hernia, [...] mRNA, LNP-s, No Pre serve, 2-Dose Series (Ztory) 08/12/2021,12/28/2020,12/02/2020 COVID-19, MRNA-LNP, 23-24, P F, 30 MCG/0.3 mL, 12 YRS AND ABOVE, IM ([facility]) 07/30/2023 Covid-19, Mrna, Lnp-s, Pf, B ivalent, 30 Mcg, IM, 12 yrs and above (Ztory) 07/21/2022 Pneumococcal Conjugate Vacc, 13 Valent (Prevnar) [...] madeaware of approval. Thank you, Nellie Stokes Anesthesia Director [facility] 07/20/2024,9:22 AM * Telephone Encounter - Eliceo Marcano CPhT - 07/19/2024 11:54 AM EDT Submitted information in previous note via CMM (Ewing: [id number]).. Awaiting payer response. We will follow-up with insurance starting 07/20. Per [facility] request, if no decision is received from insurance by 07/24, we will route back to the [facility] after clarifying with the pharmacy that the claim is still not processing. Thank you, Toy Marcano ([facility]) Spinner Tender III [facility] ([facility]) 07/19/2024, 11:54 AM * Telephone Encounter - Didi Barney [facility] - 07/19/2024 10:57 AM EDT Please submit PA. Include the following documentation: 07/04 A1c 06/13/24 OV note Please copy and paste the following information into PA form: Continuation of therapy What other drugs is there medical record documentation of therapeutic failure on, intolerance to, or contraindication to for this condition? Metformin Jardidayna Adams Jh as urgent: No Diagnosis/ICD-10 Code(s): e11.9 If instantaneous decision is not received after submitting prior auth, please continue to follow upon this and route back to the [facility] pool if no decision is made by the insurance by 07/24, after clarifying with the pharmacy that the claim is still not processing. If PA is denied, please also route back to [facility]. Thanks, Didi Barney PharmD Clinical Pharmacist Centralized Clinical Pharmacy Services ([facility]) [phone] 07/19/2024 10:57 AM * Telephone Encounter - Nellie Stokes CPhT - 07/19/2024 10:50 AM EDT This is a new PA request. Upon review of this prior authorization request, I verified this request is appropriate. This is prescribed by a department for which [facility] is authorized to review prior authorizations [...] note, there is nothing currently pending in [facility] for this request. Please advise how to proceed. Thank you, Nellie Stokes Anesthesia Director Centralized Clinical Pharmacy Services 07/19/2024,10:50 AM * [...] follows: Patient name: Juanito Yoon ID number: [id number] BIN number: [id number] PCN number: [id number] Group number: [id number] Subscriber name: Juanito Yoon Primary or Secondary Insurance:Primary Medication: Ozempic (0.25 or 0.5 MG/DOSE) 2 MG/3ML Solution Pen-injector (Semaglutide(0.25 or 0.5MG/DOS)) Reason for Request: [facility] Pharmacy and phone number: [address] Rx plan and phone number: Is this a new medication for the patient? No. How did the patient obtain the medication on the lastfill? It was a different dose or frequency the last time it was filled. What alternative medications does the pharmacy have in stock?: n/a Shari Hills Anesthesia Director Centralized Clinical Pharmacy Services ([facility]) 07/19/2024,9:53 AM [...] GUAN * Telephone Encounter - Samm Guan [facility] - 07/06/2024 8:58 AM EDTPending Prescriptions: Disp Refills Ozempic (0.25 or 0.5 MG/DOSE) 2 MG/3ML Ashwiin*3 mL 5 Sig: Inject 0.5 mg under [...] the skin once a week. Thanks, Samm Guan, PharmD Clinical Pharmacist [facility] ([facility]) [phone] 07/06/2024, 8:56 AM documented in this encounter Plan of Treatment Upcoming Encounters Date Type Department Care Team (Late st Contact Info) Description 08/02/2024 10:50 AM EDT Anticoagulation Pharmacy, [address] [place] [address] [place] [address] 12/14/2024 9:00 AM EST Office Visit Gastroenterology, [facility] [address] [place] [address] Berenice Montano CRNP [address] [place] [address] 12/19/2024 1:00 PM EST Office Visit [address] [phone] Mukesh Hernández CRNP [address] [place] [address] [place] [address] 12/26/2024 10:00 AM EDT Office Visit Cardiology, [facility] 132 [facility] [place] [address] Nellie Frausto PA-C [address] [place] [address] 07/17/2025 1:40 PM EDT Office Visit [address] [phone] Neo Deal MD [address] [place] [address] [place] [address] Scheduled Procedures Name Priority Associated Diagnoses Date/Ti [...] 2:54 PM 12/14/2007 5:34 PM Care Teams Travel Agency Manager Relationship Specialty Start Date End Date Neo Deal MD [address] [place] [address] [place] [phone] PCP - General Family Medicine 07/19/13 documented as of this encounter
--- OUTSIDE RECORDS SUMMARY | 2024-12-29 02:46 | External Medical Summary | Summary of Care ---
Author Name Unknown Organization [facility] Address [address] [place] [address] Phone [phone] Care Team Providers Care Stave Saw Operator Name Role Phone Juan Deal MD Primary Care Provide r Reason for Visit * Reason Comments eRx-Medication Refill Encounter Details Date Type Department Care Team (Late st Contact Info) Description 07/05/2024 Refill Family Medicine [address] [phone] Juan Deal MD [address] [place] [address] [place] [address] Primary insomnia Allergies Active Allergy Reactions [...] morning. 9 Active Blood Glucose Monitoring Suppl (ONETOUCH VERIO) [...] Capsules daily . For 10 days Active BarringtonTouch Hanyben In Vitro Strip (Glucose Blood)Indication s:Type 2 [...] thrombus 01/11/2023 Coronary artery disease invo lving [place] coronary artery of [place] heart without angina pectoris 01/11/2023 Incisional hernia, [...] serve, 2-Dose Series (Pfizer) 08/12/2021,12/28/2020,12/02/2020 COVID-19, MRNA-LNP, 23-24, P F, 30 [...] encounter Miscellaneous Notes * Telephone Encounter - Shari Beltran detail supervisor - 07/19/2024 9:53 AM EDT Pt said he has been waiting for a week for prior auth. Patient calling to inform doctor that the patient's insurance will not pay for this medication without a completed prior authorization. Did confirm this information with the pharmacy. Pt's current insurance information is as follows: Patient name: Juanito Yoon ID number: [id number] BIN number: [id number] PCN number: [id number] Group number: [id number] Subscriber name: Juanito Yoon Primary or Secondary Insurance:Primary Medication: Ozempic (0.25 or 0.5 MG/DOSE) 2 MG/3ML Solution Pen-injector (Semaglutide(0.25 or 0.5MG/DOS)) Reason for Request: [facility] Pharmacy and phone number: [address] Rx plan and phone number: Is this a new medication for the patient? No. How did the patient obtain the medication on the lastfill? It was a different dose or frequency the last time it was filled. What alternative medications does the pharmacy have in stock?: n/a ThanksShari Remotely Piloted Vehicle Controller Centralized [facility]acy [facility] ([facility]) 07/19/2024,9:53 AM * Telephone Encounter - Juan [...] GUAN * Telephone Encounter - Gabriela Guan RPh - 07/06/2024 8:58 AM EDTPending Prescriptions: Disp [...] under the skin once a week. Thanks, Gabriela Guan PharmD Clinical Pharmacist [facility] ([facility]) [phone] 07/06/2024, 8:56 AM documented in this encounter Plan of Treatment Upcoming Encounters Date Type Department Care Team (Late st Contact Info) Description 08/02/2024 10:50 AM EDT Anticoagulation Pharmacy, [address] [place] [address] [place] [address] 12/14/2024 9:00 AM EST Office Visit Gastroenterology, [facility] 132 [facility] [place] [address] Berenice Montano CRNP 132 [facility] [place] [address] 12/19/2024 1:00 PM EST Office Visit Family [address] [place] [phone] Mukesh Hernández CRNP [address] [place] [address] [place] [address] 12/26/2024 10:00 AM EDT Office Visit Cardiology, [address] [place] [address] Nellie Frausto PA-C [address] [place] [address] [place] [address] 07/17/2025 1:40 PM EDT Office Visit [address] [place] [phone] Juan Deal MD [address] [place] [address] [place] [address] Scheduled Procedures Name Priority Associated Diagnoses Date/Ti [...] 2:54 PM 12/14/2007 5:34 PM Care Teams Stave Saw Operator Relationship Specialty Start Date End Date Juan Deal MD [address] [place] [address] [place] [address] PCP - General Family Medicine 07/19/13 documented as of this encounter
--- OUTSIDE RECORDS SUMMARY | 2024-12-29 02:46 | External Medical Summary ---
Author Name Unknown Address Unknown Organization : Laboratory Report Ordering Provider Test Date Status MAGY JONES 09/19/2024 10:28:04 Final Therapeutic ranges for non-o perative patients:
Prophylaxsis/treatment of DVT: (Range:2.0-3.0)
Treatment of pulmonary embolism:(Range:2.0-3.0)
Prevention of systemic embolism from:
-tissue heart valves
-acute myocardial infarction
-valvular heart disease
-atrial fibrillation
(Range: 2.0-3.0)
Mechanical prosthetic valves: (Range: 2.5-3.5) Observation Date Value Abnormality Reference (Units ) Status INR in Capillary blood by Coagulation assay 09/19/2024 10:28:04 2.3 (INR) Final Performing Location
--- OUTSIDE RECORDS SUMMARY | 2024-12-29 02:46 | External Medical Summary | Summary of Care ---
Author Name Unknown Organization [facility] Address [address] [place] [address] Phone [phone] Care Team Providers Care Cook Chief Name Role Phone Neo Han MD Primary Care Provide r Reason for Visit * Reason Comments eRx-Medication Refill Encounter Details Date Type Department Care Team (Late st Contact Info) Description 08/04/2024 Refill Cardiology, [facility] [address] [place] [address] Dusty Ramachandran, DO [address] [place] [address] Allergies Active Allergy Reactions Criticality Noted Date Comments Niacin 01/07/2022 Other reaction(s): ITCHY SPLOTCHY RASH Niacin Er [place] 09/04/2010 documented as of this encounter (statuses as of 08/07/2024) Medications Medication Sig Dispensed Refills Start Date [...] daily . For 10 days Active BarringtonTouch Verben In Vitro Strip (Glucose Blood)Indication s:Type 2 [...] or other meds) 90 Tablet 4 Active Fenofibrate Micronized 134 MG Oral [...] AT BEDTIME 90 Tablet 1 4 Active Enalapril Maleate 2.5 MG Oral Tablet (Vasotec) TAKE ONE TABLET TWICE DAILY 180 Tablet 3 4 Active Warfarin Sodium 3 MG Oral Tablet (Coumadin) Take 1-2 tablets by mouth daily as directed by anticoagulation clinic 60 Tablet 5 4 Active Warfarin Sodium 3 MG Oral Tablet (Coumadin) Take 1-2 tablets by mouth daily as directed by anticoagulation clinic 60 Tablet 1 4 024 Discontinued documented as of this encounter (statuses as of 08/07/2024) Active Problems Problem Noted Date Diagnosed Date Chronic ischemic heart disease 02/04/2024 HTN, goal below 130/80 02/04/2024 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 ([place]) 01/11/2023 Systolic congestive heart failure 01/11/2023 S/P drug eluting coronary stent placement 2022 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 Coronary artery disease invo lving [place] coronary artery of [place] heart without angina pectoris 01/11/2023 Incisional hernia, [...] as of this encounter (statuses as of 08/07/2024) Resolved Problems Problem Noted Date Diagnosed Date [...] as of this encounter (statuses as of 08/07/2024) Immunizations Name Administration Dates Next Due COVID-19 mRNA, LNP-s, No Pre serve, 2-Dose Series (Pfizer) 08/12/2021,12/28/2020,12/02/2020 COVID-19, MRNA-LNP, 23-24, P F, 30 MCG/0.3 mL, 12 YRS AND ABOVE, IM ([employer] [place] [employer]-Comirnaty) 07/30/2023 Covid-19, Mrna, Lnp-s, Pf, B ivalent, [...] encounter Miscellaneous Notes * Telephone Encounter - Liz Cornelius [facility] - 08/07/2024 12:34 PM EDTSigned Prescriptions: Disp Refills Warfarin Sodium 3 MG Oral Tablet (Coumadin)60 Tab*5 Sig: Take 1-2 tablets by mouth daily as directed by anticoagulation clinicAuthorizing Provider: Kenzie RAMACHANDRAN User: LIZ CORNELIUS * Telephone Encounter - Liz Cornelius RPh - 08/07/2024 12:32 PM EDT Most recent anticoag episode checked. Refill approved. Thank you, Liz Cornelius, PharmD Clinical Pharmacist Centralized Clinical Pharmacy Services ([facility]) [phone] 08/07/2024, 12:33 PM documented in this encounter Plan of Treatment Upcoming Encounters Date Type Department Care Team (Late st Contact Info) Description 08/14/2024 11:50 AM EDT Anticoagulation Pharmacy, [address] [place] [address] [place] [address] 12/14/2024 9:00 AM EST Office Visit Gastroenterology, [facility] 132 [facility] [place] [address] Berenice Montano CRNP 132 [facility] [place] [address] 12/19/2024 1:00 PM EST Office Visit Family Medicine [address] [place] [phone] Mukesh Hernández CRNP [address] [place] [address] [place] [address] 12/26/2024 10:00 AM EDT Office Visit Cardiology, [facility] 132 [facility] [place] [address] Nellie Frausto PA-C [address] [place] [address] [place] [address] 07/17/2025 1:40 PM EDT Office Visit Family Medicine [address] [place] [phone] Neo Han MD [address] [place] [address] [place] [address] Scheduled Procedures Name Priority Associated Diagnoses Date/Ti [...] 2:54 PM 12/14/2007 5:34 PM Care Teams Cook Chief Relationship Specialty Start Date End Date Neo Han MD [address] [place] [address] [place] [address] PCP - General Family Medicine 07/19/13 documented as of this encounter
--- OUTSIDE RECORDS SUMMARY | 2024-12-29 02:46 | External Medical Summary | Summary of Care ---
Author Name Unknown Organization [facility] Address [address] [place] [address] Phone [phone] Care Team Providers Care Learning Support Teacher Name Role Phone Neo Deal MD Primary Care Provide r Reason for Visit * Reason Onset Date Comments eRx-Medication Refill Medication Pre-auth 07/05/2024 Ozempic (0.2 5 or 0.5 MG/DOSE) 2 MG/3ML Solution Pen-injector (Semaglutide(0.25 or 0.5MG/DOS)) Encounter Details Date Type Department Care Team (Late st Contact Info) Description 07/05/2024 Telephone Family [address] [phone] Neo Deal MD [address] [place] [address] [place] [address] eRx-Medication Refill; Medication Pre-auth... Allergies Active [...] morning. 9 Active Blood Glucose Monitoring Suppl (Autonet MobileTOUCH VERIO) w/Device KIT Test daily E11.9 1 [...] Capsules daily . For 10 days Active [employer] VerRxMP [employer] In Vitro Strip (Glucose Blood)Indication s:Type 2 [...] thrombus 01/11/2023 Coronary artery disease invo lving [place] coronary artery of [place] heart without angina pectoris 01/11/2023 Incisional hernia, [...] mRNA, LNP-s, No Pre serve, 2-Dose Series (Jobzella) 08/12/2021,12/28/2020,12/02/2020 COVID-19, MRNA-LNP, 23-24, P F, 30 MCG/0.3 mL, 12 YRS AND ABOVE, IM ([facility]) 07/30/2023 Covid-19, Mrna, Lnp-s, Pf, B ivalent, 30 Mcg, IM, 12 yrs and above (Jobzella) 07/21/2022 Pneumococcal Conjugate Vacc, 13 Valent (Prevnar) [...] encounter Miscellaneous Notes * Telephone Encounter - Eliceo Marcano CPhT - 07/19/2024 11:54 AM EDT Submitted information in previous note via CMM (Ewing: [id number]).. Awaiting payer response. We will follow-up with insurance starting 07/20. Per [facility] request, if no decision is received from insurance by 07/24, we will route back to the [facility] after clarifying with the pharmacy that the claim is still not processing. Thank you, Toy Marcano ([facility]) Quality Assurance Director III Centralized Clin[facility] Pharmacy Services ([facility]) 07/19/2024, 11:54 AM * Telephone Encounter - Didi Barney [facility] - 07/19/2024 10:57 AM EDT Please submit PA. Include the following documentation: 07/04 A1c 06/13/24 OV note Please copy and paste the following information into PA form: Continuation of therapy What other drugs is there medical record documentation of therapeutic failure on, intolerance to, or contraindication to for this condition? Metformin Jardiance Angie Jh as urgent: No Diagnosis/ICD-10 Code(s): e11.9 If instantaneous decision is not received after submitting prior auth, please continue to follow upon this and route back to the [facility] pool if no decision is made by the insurance by 07/24, after clarifying with the pharmacy that the claim is still not processing. If PA is denied, please also route back to [facility] pool. Thanks, Didi Barney, PharmD Clinical Pharmacist Centralized Clinical Pharmacy Services ([facility]) [phone] 07/19/2024 10:57 AM * Telephone Encounter - Nellie Stokes CPhT - 07/19/2024 10:50 AM EDT This is a new PA request. Upon review of this prior authorization request, I verified this request is appropriate. This is prescribed by a department for which [facility] is authorized to review prior [...] note, there is nothing currently pending in [facility] for this request. Please advise how to proceed. Thank you, Nellie Stokes Brazing Machine Setter Centralized Clinical Pharmacy Services 07/19/2024,10:50 AM * [...] follows: Patient name: Juanito Yoon ID number: [id number] BIN number: [id number] PCN number: [id number] Group number: [id number] Subscriber name: Juanito Yoon Primary or Secondary Insurance:Primary Medication: Ozempic (0.25 or 0.5 MG/DOSE) 2 MG/3ML Solution Pen-injector (Semaglutide(0.25 or 0.5MG/DOS)) Reason for Request: needs pa Pharmacy and phone number: [address] Rx plan and phone number: Is this a new medication for the patient? No. How did the patient obtain the medication on the lastfill? It was a different dose or frequency the last time it was filled. What alternative medications does the pharmacy have in stock?: n/a Thanks, Shari Beltran Brazing Machine Setter [facility] ([facility]) 07/19/2024,9:53 AM [...] ----- * Telephone Encounter - Samm Guan RP - 07/06/2024 8:55 AM EDT Dose change [...] Clinical Pharmacist Centralized Clinical Pharmacy Services ([facility]) [phone] 07/06/2024, 8:56 AM documented in this encounter Plan of Treatment Upcoming Encounters Date Type Department Care Team (Late st Contact Info) Description 08/02/2024 10:50 AM EDT Anticoagulation Pharmacy, [address] [place] [address] [place] [address] 12/14/2024 9:00 AM EST Office Visit Gastroenterology, [address] [place] [address] Berenice Montano CRNP [address] [place] [address] [place] [address] 12/19/2024 1:00 PM EST Office Visit Family Medicine [address] [place] [phone] Mukesh Hernández CRNP [address] [place] [address] [place] [address] 12/26/2024 10:00 AM EDT Office Visit Cardiology, [address] [place] [address] Nellie Frausto PA-C [address] [place] [address] [place] [address] 07/17/2025 1:40 PM EDT Office Visit Family Medicine [address] [place] [phone] Neo Deal MD [address] [place] [address] [place] [address] Scheduled Procedures Name Priority Associated Diagnoses Date/Ti [...] 2:54 PM 12/14/2007 5:34 PM Care Teams Learning Support Teacher Relationship Specialty Start Date End Date Neo Deal MD [address] [place] [address] [place] [address] PCP - General Family Medicine 07/19/13 documented as of this encounter
--- OUTSIDE RECORDS SUMMARY | 2024-12-29 02:47 | External Medical Summary ---
Author Name Unknown Address Unknown Organization K01:LABORATORY [facility] - [address] [facility] [address] Laboratory Report Ordering Provider Test Date Status GARY ORTEGA 07/04/2024 08:40:02 Final Observation Date Value Abnormality Reference (Units ) Status WBC, Total 07/04/2024 08:40:02 5.61 4.00-10.80 (K/uL) Final RBC 07/04/2024 08:40:02 4.78 4.50-5.25 (M/uL) Final Hemoglobin 07/04/2024 08:40:02 15.0 14.0-16.8 (g/dL) Final HCT 07/04/2024 08:40:02 44.3 40.0-48.4 (%) Final MCV 07/04/2024 08:40:02 92.7 82.0-99.5 (fL) Final MCH 07/04/2024 08:40:02 31.4 27.0-34.0 (pg) Final MCHC 07/04/2024 08:40:02 33.9 32.0-36.0 (g/dL) Final RDW 07/04/2024 08:40:02 13.3 11.5-15.5 (%) Final Platelets 07/04/2024 08:40:02 147 140-400 (K/uL) Final MPV 07/04/2024 08:40:02 12.1 6.6-11.1 (fL) Final Nucleated erythrocytes/100 leukocytes [Ratio] in Blood by Automated count 07/04/2024 08:40:02 0 <=0 (/100 WBCs) Final Performing Location LABORATORY [facility] - [address] [facility] [address]
--- OUTSIDE RECORDS SUMMARY | 2024-12-29 02:47 | External Medical Summary ---
Author Name Unknown Address Unknown Organization K01:LABORATORY [facility] - [address] [facility] [address] Laboratory Report Ordering Provider Test Date Status GARY ORTEGA 07/04/2024 08:40:02 Final Observation Date Value Abnormality Reference (Units ) Status BUN 07/04/2024 08:40:02 17 6-20 (mg/dL) Final Creatinine 07/04/2024 08:40:02 0.9 0.6-1.2 (mg/dL) Final Glomerular filtration rate/1.73 sq M.predicted [Volume Rate/Area] in Serum, Plasma or Blood by Creatinine-based formula (CKD-EPI) 07/04/2024 08:40:02 88 >=60 (mL/min) Final eGFR is calculated based on the CKD-EPI 2020 equation. Sodium 07/04/2024 08:40:02 140 135-146 (m mol/L) Final Potassium 07/04/2024 08:40:02 4.2 3.5-5.1 (m mol/L) Final Cl 07/04/2024 08:40:02 105 98-107 (mm ol/L) Final CO2 07/04/2024 08:40:02 22 22-32 (mmo l/L) Final Anion gap 07/04/2024 08:40:02 13 7-15 (mmol /L) Final Glucose 07/04/2024 08:40:02 148 Above high normal 70 -120 (mg/dL) Final Albumin 07/04/2024 08:40:02 4.3 3.8-5.0 (g /dL) Final AST (Aspartate aminotransferase) 07/04/2024 08:40:02 28 10-50 (U/L) Fin al Alk Phos 07/04/2024 08:40:02 57 35-130 (U/ L) Final Bilirubin, Total 07/04/2024 08:40:02 0.8 <=1 .2 (mg/dL) Final Calcium 07/04/2024 08:40:02 8.8 8.4-10.2 ( mg/dL) Final Protein 07/04/2024 08:40:02 6.4 6.0-8.3 (g /dL) Final ALT (Alanine aminotransferase) 07/04/2024 08:40:02 23 10-50 (U/L) Talon spencer Performing Location LABORATORY [facility] - [facility] [address] [facility] [address]
--- OUTSIDE RECORDS SUMMARY | 2024-12-29 02:47 | External Medical Summary | Summary of Care ---
Author Name Unknown Organization [facility] Address [address] [place] [address] Phone [phone] Care Team Providers Care Propellant Charge Zone Assembler Name Role Phone Juan Han MD Primary Care Provide r Reason for Visit * Reason Comments eRx-Medication Refill Encounter Details Date Type Department Care Team (Late st Contact Info) Description 07/05/2024 Refill Family Medicine [address] [phone] Juan Han MD [address] [place] [address] [place] [address] Primary insomnia Allergies Active Allergy Reactions Criticality Noted Date Comments Niacin 01/07/2022 Other reaction(s): ITCHY SPLOTCHY RASH Niacin Er Flushing 09/04/2010 documented as of this encounter (statuses as of 07/06/2024) Medications Medication Sig Dispensed Refills Start Date [...] Capsules daily . For 10 days Active BarringtonJacobosebas Leachben In Vitro Strip (Glucose Blood)Indication s:Type 2 diabetes mellitus with hemoglobin A1c goal of less than 8.0% (HCC) Test daily E11.9 100 Strip 1 2 Active Sildenafil Citrate 100 MG Oral Tablet (Viagra)Indicati ons:Impotence of organic origin One tablet as needed for erectile dysfunction 6 Tablet 6 3 Active Enalapril Maleate 2.5 MG Oral Tablet (Vasotec) TAKE ONE TABLET TWICE DAILY 180 Tablet 3 3 Active Levothyroxine Sodium 25 MCG Oral [...] week. 3 mL 5 3 024 Discontinued traZODone HCl 50 MG Oral Tablet (Desyrel)Indicat ions:Primary insomnia TAKE ONE TABLET BY MOUTH AT BEDTIME 90 Tablet 1 4 024 Discontinued documented as of this encounter (statuses as of 07/06/2024) Active Problems Problem Noted Date Diagnosed Date Chronic ischemic heart disease 02/04/2024 HTN, goal below 130/80 02/04/2024 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 ([facility]) 01/11/2023 Systolic congestive heart failure 01/11/2023 S/P drug eluting coronary stent placement 2022 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 Coronary artery disease invo lving [place] coronary artery of [place] heart without angina pectoris 01/11/2023 Incisional hernia, [...] as of this encounter (statuses as of 07/06/2024) Resolved Problems Problem Noted Date Diagnosed Date [...] as of this encounter (statuses as of 07/06/2024) Immunizations Name Administration Dates Next Due COVID-19 mRNA, LNP-s, No Pre serve, 2-Dose Series (Pfizer) 08/12/2021,12/28/2020,12/02/2020 COVID-19, MRNA-LNP, 23-24, P F, 30 MCG/0.3 mL, 12 YRS AND ABOVE, IM (FamilyFinds-Comirnaty) 07/30/2023 Covid-19, Mrna, Lnp-s, Pf, B ivalent, [...] Telephone Encounter - Juan Han MD - 07/06/2024 9:32 AM EDT Signed Prescriptions: Disp Refills Ozempic (0.25 or 0.5 MG/DOSE) 2 MG/3ML Ashwini*3 mL 5 Sig: Inject 0.5 mg under the skin once a week. Authorizing Provider: JUAN HAN traZODone HCl 50 MG Oral Tablet (Desyrel) 90 Tab*1 Sig: TAKE ONE TABLET BY MOUTH AT BEDTIME Authorizing Provider: JUAN HAN Ordering User: GABRIELA GUAN * Telephone Encounter - Gabriela Guan [facility] - 07/06/2024 8:58 AM EDTPending Prescriptions: Disp Refills Ozempic (0.25 or 0.5 MG/DOSE) 2 MG/3ML Ashwini*3 mL 5 Sig: Inject 0.5 mg under the skin once a week. Signed Prescriptions: Disp Refills traZODone HCl 50 MG Oral Tablet (Desyrel) 90 Tab*1 Sig: TAKE ONE TABLET BY MOUTH AT BEDTIME Authorizing Provider: JUAN HAN Ordering User: GABRIELA GUAN ----- * Telephone Encounter - Gabriela Guan [facility] - 07/06/2024 8:55 AM EDT Dose change [...] Clinical Pharmacist Centralized Clinical Pharmacy Services (CCPS) [phone] 07/06/2024, 8:56 AM documented in this encounter Plan of Treatment Upcoming Encounters Date Type Department Care Team (Late st Contact Info) Description 08/02/2024 10:50 AM EDT Anticoagulation Pharmacy, [address] [place] [address] [place] [address] 12/14/2024 9:00 AM EST Office Visit Gastroenterology, [facility] [address] [facility] [place] [address] Berenice Montano CRNP [address] [facility] [place] [address] 12/19/2024 1:00 PM EST Office Visit Family [address] [place] [phone] Mukesh Hernández CRNP [address] [place] [address] [place] [address] 12/26/2024 10:00 AM EDT Office Visit Cardiology, [facility] [address] [facility] [place] [address] Nellie Frausto PA-C [address] [place] [address] [place] [address] 07/17/2025 1:40 PM EDT Office Visit Family Medicine [address] [phone] Juan Han MD [address] [place] [address] [place] [address] Scheduled Procedures Name Priority [...] 2:54 PM 12/14/2007 5:34 PM Care Teams Propellant Charge Zone Assembler Relationship Specialty Start Date End Date Juan Han MD [address] [place] [address] [place] [address] PCP - General Family Medicine 07/19/13 documented as of this encounter
--- OUTSIDE RECORDS SUMMARY | 2024-12-29 02:47 | External Medical Summary ---
Author Name Unknown Address Unknown Organization [id number]:[facility] [place] [address] [place] [address] Laboratory Report Ordering Provider Test Date Status MAGY JONES 07/04/2024 08:40:02 Final Warfarin Therapy
INR: 2 .0-3.0 conventional anticoagulation
INR: 2.5- 3.5 high intensity anticoagulation Observation Date Value Abnormality Reference (Units ) Status PT 07/04/2024 08:40:02 22.6 Above high normal 11 .6-15.2 (seconds) Final INR 07/04/2024 08:40:02 2.0 Above high normal 0. 8-1.2 Final Performing Location [facility] [place] [facility] [address] [facility] [address]
--- OUTSIDE RECORDS SUMMARY | 2024-12-29 02:47 | External Medical Summary | Summary of Care ---
Author Name Unknown Organization [facility] Address [address] [place] [address] Phone [phone] Care Team Providers Care Collect On Delivery Clerk Name Role Phone Neo Han MD Primary Care Provide r Reason for Visit * Reason Comments Outpatient Testing Encounter Details Date Type Department Care Team (Late st Contact Info) Description 07/04/2024 8:50 AM EDT Laboratory Laboratory [address] [place] [phone] [facility] [address] [place] [address] Chronic ischemic heart disease; HTN, goal below 130/80; Frequent PVCs; Apical mural thrombus; Anticoagulation management encounter; Encounter for long-term (current) drug use; Hypothyroidism; Cirrhosis of liver without ascites, unspecified hepatic cirrhosis type (HCC); Encounter for long-term (current) use of medications; Type 2 diabetes mellitus with hemoglobin A1c goal of less than 8.0% ([facility]); HTN, goal below 140/90; Acquired hypothyroidism; Dyslipidemia, goal LDL below 100 Allergies Active Allergy Reactions Criticality Noted Date Comments Niacin 01/07/2022 Other reaction(s): ITCHY SPLOTCHY RASH Niacin Er [place] 09/04/2010 documented as of this encounter (statuses as of 07/04/2024) Medications Medication Sig Dispensed Refills Start Date End Date Status FIBER FORMULA PO CAPS Take 1 Cap by mouth daily. Active LANCETS MISCIndications:Di abetes mellitus type 2, diet-controlled (HCC) Use once daily as directed Dx 250.00 1 [address] 07/24/2013 Active Cyanocobalamin (VITAMIN B-12) 1000 MCG Tablet Take 1 Tablet by mouth in the morning. 05/16/2019 Active Blood Glucose Monitoring Suppl (GetLikemindsTOUCH VERIO) w/Device KIT Test daily E11.9 1 Kit 04/16/2020 Active OneTouch UltraSoft LancetsIndications :Type 2 diabetes mellitus with hemoglobin A1c goal of less than 8.0% ([facility]) Test daily. E11.9 100 Each 1 10/02/2021 Active Acetaminophen 325 MG Oral Tablet (Tylenol) Take 2 Tablets by mouth every 6 hours as needed. 01/12/2022 Active Advanced Probiotic Oral Capsule Take by mouth 2 Capsules daily . For 10 days Active [employer] Ver[employer] In Vitro Strip (Glucose Blood)Indications: Type 2 diabetes mellitus with hemoglobin A1c goal of less than 8.0% ([facility]) Test daily E11.9 100 Strip 1 07/20/2022 Active Sildenafil Citrate 100 MG Oral Tablet (Viagra)Indication s:Impotence of organic origin One tablet as needed for erectile dysfunction 6 Tablet 6 12/28/2022 Active Ozempic (0.25 or 0.5 MG/DOSE) 2 MG/3ML Solution Pen-injector (Semaglutide(0.25 or 0.5MG/DOS)) Inject 0.25 mg under the skin once a week. 3 mL 5 06/23/2023 Active Enalapril Maleate 2.5 MG Oral Tablet (Vasotec) TAKE ONE TABLET TWICE DAILY 180 Tablet 3 08/05/2023 Active traZODone HCl 50 MG Oral Tablet (Desyrel)Indicatio ns:Primary insomnia TAKE ONE TABLET BY MOUTH AT BEDTIME 90 Tablet 1 01/21/2024 Active Levothyroxine Sodium 25 MCG Oral Tablet (Levoxyl)Indicatio ns:Hypothyroidism Take 1 Tablet by mouth daily. (at least 30 min prior to breakfast or other meds) 90 Tablet 05/16/2024 Active Warfarin Sodium 3 MG Oral Tablet (Coumadin) Take 1-2 tablets by mouth daily as directed by anticoagulation clinic 60 Tablet 1 05/29/2024 Active Fenofibrate Micronized 134 MG Oral CapsuleIndications [...] EVERY MORNING 90 Tablet 1 06/27/2024 Active documented as of this encounter (statuses as of 07/04/2024) Active Problems Problem Noted Date Diagnosed Date Chronic ischemic heart disease 02/04/2024 HTN, goal below 130/80 02/04/2024 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 ([facility]) 01/11/2023 Systolic congestive heart failure 01/11/2023 S/P drug eluting coronary stent placement 2022 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 Coronary artery disease invo lving [place] coronary artery of [place] heart without angina pectoris 01/11/2023 Incisional hernia, [...] as of this encounter (statuses as of 07/04/2024) Resolved Problems Problem Noted Date Diagnosed Date [...] as of this encounter (statuses as of 07/04/2024) Immunizations Name Administration Dates Next Due COVID-19 [...] Care Team (Late st Contact Info) Description 12/14/2024 9:00 AM EST Office Visit Gastroenterology, [facility] [address] [place] [address] Berenice Montano CRNP [address] [place] [address] 12/19/2024 1:00 PM EST Office Visit [address] [phone] Mukesh Hernández CRNP [address] [place] [address] [place] [address] 12/26/2024 10:00 AM EDT Office Visit Cardiology, Health system 132 [facility] [place] [address] Nellie Frausto PA-C [address] [facility] [place] [phone] 07/17/2025 1:40 PM EDT Office Visit [address] [place] [phone] Neo Han MD [address] [place] [address] [place] [address] Pending Results Name Type Priority Associated Diagnoses Date /Time PT INR Lab Routine Chronic ischemic heart disease HTN, goal below 130/80 Frequent PVCs Apical mural thrombus Anticoagulation management encounter 07/04/2024 8:40 AM EDT MAGNESIUM Lab Routine Encounter for long-term (current) drug use 07/04/2024 8:40 AM EDT TSH WITH FREE T4 IF INDICATED Lab Routine Hypothyroidism 07/04/2024 8:40 AM EDT CBC WITH WBC DIFFERENTIAL Lab Routine Cirrhosis of liver without ascites, unspecified hepatic cirrhosis type (HCC) 07/04/2024 8:40 AM EDT ALPHA-FETOPROTEIN TUMOR MARKER Lab Routine Cirrhosis of liver without ascites, unspecified hepatic cirrhosis type (HCC) 07/04/2024 8:40 AM EDT LIPID PANEL WITH DIRECT LDL IF TG IS HIGH Lab Routine Encounter for long-term (current) use of medications 07/04/2024 8:40 AM EDT HEMOGLOBIN A1C Lab Routine Type 2 diabetes mellitus with hemoglobin A1c goal of less than 8.0% (HCC) 07/04/2024 8:40 AM EDT ALBUMIN / CREATININE RATIO, URINE Lab Routine HTN, goal below 140/90 07/04/2024 8:40 AM EDT CBC Lab Routine Cirrhosis of liver without ascites, unspecified hepatic cirrhosis type (HCC) 07/04/2024 8:40 AM EDT DIFFERENTIAL, AUTOMATED Lab Routine Cirrhosis of liver without ascites, unspecified hepatic cirrhosis type (HCC) 07/04/2024 8:40 AM EDT Scheduled Procedures Name Priority Associated Diagnoses Date/Ti me ESOPHAGOGASTRODUODENOSCOPY ( EGD), FLEXIBLE, TRANSORAL, DIAGNOSTIC Recall Portal hypertensive gastropathy (HCC) Health Maintenance Due Date Last Done Comments Zoster Vaccines (1 of 2) 1997 Hepatitis B Vaccine (1 of 3 - Risk 3-dose series) 2007 Adult Wellness Visit 05/07/2018 05/07/2017 Depression Monitoring 02/21/2022 02/21/2021 HbA1c 11/11/2023 05/11/2023, 12/17, 05/20/2022, Additional history exists Albumin/Creatinine Ratio 05/11/2024 023, 05/20/2022, 02/25/2021, Additional history exists Diabetic Foot Exam 05/11/2024 05/11/2023, 0 07/16/2020, 05/12/2019, Additional history exists TSH 05/11/2024 05/11/2023, 08/12/2021, 05/29/2021, Additional history exists COVID-19 Vaccine ( season) 2024 07/30/2023, 07/21/2022, 08/12/2021, Additional history exists Influenza Vaccine (FLU shot) (#1) 2024 08/04/2005 Colonoscopy 10/26/2024 10/26/2019, 01/0 06/2020, 11/22/2015, Additional history exists Diabetic Eye Exam 11/12/2024 11/12/2023, , 08/27/2021, Additional history exists GFR 02/03/2025 02/04/2024, 09/17, 08/11/2023, Additional history exists DTap/Tdap Vaccines (2 - [...] as of this encounter Visit Diagnoses Diagnosis Chronic ischemic heart disease Chronic ischemic heart disease, unspecified HTN, goal below 130/80 Unspecified essential hypertension Frequent PVCs Other premature beats Apical mural thrombus Acute myocardial infarction of other anterior wall, episode of care unspecified Anticoagulation management encounter Encounter for therapeutic drug monitoring Encounter for long-term (current) drug use Encounter for long-term (current) use of other medications Hypothyroidism Unspecified hypothyroidism Cirrhosis of liver without ascites, unspecified hepatic cirrhosis type (HCC) Encounter for long-term (current) use of medications Encounter for long-term (current) use of other medications Type 2 diabetes mellitus with hemoglobin A1c goal of less than 8.0% (HCC) HTN, goal below 140/90 Unspecified essential hypertension Acquired hypothyroidism Unspecified hypothyroidism Dyslipidemia, goal LDL below 100 Other and unspecified hyperlipidemia documented in this encounter Advance Directives * [...] 2:54 PM 12/14/2007 5:34 PM Care Teams Collect On Delivery Clerk Relationship Specialty Start Date End Date Neo Han MD [address] [place] [address] [place] [address] PCP - General Family Medicine 07/19/13 documented as of this encounter
--- OUTSIDE RECORDS SUMMARY | 2024-12-29 02:47 | External Medical Summary ---
Author Name Unknown Address Unknown Organization [id number]:[place] [place] [address] [place] [address] Laboratory Report Ordering Provider Test Date Status GARY ORTEGA 07/04/2024 08:40:02 Final Observation Date Value Abnormality Reference (Units ) Status Alpha-Fetoprotein 07/04/2024 08:40:02 1.8 0. 0-8.3 (ng/mL) Final Performing Location [facility] - [address] [place] [address]
--- OUTSIDE RECORDS SUMMARY | 2024-12-29 02:47 | External Medical Summary ---
Author Name Unknown Address Unknown Organization [id number]:LABORATORY [facility] - [address] [facility] [address] [facility] [address] Laboratory Report Ordering Provider Test Date Status LOLA SAAB 07/04/2024 08:40:02 Final Observation Date Value Abnormality Reference (Units ) Status Magnesium 07/04/2024 08:40:02 1.5 1.5-2.6 (m g/dL) Final Performing Location [facility] - [address] [facility] [address]
--- OUTSIDE RECORDS SUMMARY | 2024-12-29 02:47 | External Medical Summary | Summary of Care ---
Author Name Unknown Organization [facility] Address [address] [place] [address] Phone [phone] Care Team Providers Care Magnetic Resonance Imaging Director Name Role Phone Juan Han MD Primary Care Provide r Reason for Visit * Reason Comments eRx-Medication Refill Encounter Details Date Type Department Care Team (Late st Contact Info) Description 07/05/2024 Refill Family Medicine [address] [phone] Juan Han MD [address] [place] [address] [place] [address] Primary insomnia Allergies Active Allergy Reactions Criticality Noted Date Comments Niacin 01/07/2022 Other reaction(s): ITCHY SPLOTCHY RASH Niacin Er [place] 09/04/2010 documented as of this encounter (statuses as of 07/07/2024) Medications Medication Sig Dispensed Refills Start Date [...] as of this encounter (statuses as of 07/07/2024) Active Problems Problem Noted Date Diagnosed Date [...] as of this encounter (statuses as of 07/07/2024) Resolved Problems Problem Noted Date Diagnosed Date [...] as of this encounter (statuses as of 07/07/2024) Immunizations Name Administration Dates Next Due COVID-19 mRNA, LNP-s, No Pre serve, 2-Dose Series (Pfizer) 08/12/2021,12/28/2020,12/02/2020 COVID-19, MRNA-LNP, 23-24, P F, 30 MCG/0.3 mL, 12 YRS AND ABOVE, IM (PFIZER-Comirnaty) 07/30/2023 Covid-19, Mrna, Lnp-s, Pf, B ivalent, 30 Mcg, IM, 12 yrs and above (Pfizer) 07/21/2022 Pneumococcal Conjugate Vacc, 13 Valent (Prevnar) 05/07/2017 Pneumococcal Polysaccharide PPV23 (Pneumovax) 07/16/2020,08/04/2005 Seasonal Influenza, Trivalen t, (IIV3), with Preserv, (Fluzone) 08/04/2005 TD - Tetanus/Diptheria (ADULT) 01/10/2007,1992 [...] GUAN * Telephone Encounter - Gabriela Guan RP - 07/06/2024 8:58 AM EDTPending [...] Clinical Pharmacist Centralized Clinical Pharmacy Services (CCPS) [phone] 07/06/2024, 8:56 AM documented in this encounter Plan of Treatment Upcoming Encounters Date Type Department Care Team (Late st Contact Info) Description 08/02/2024 10:50 AM EDT Anticoagulation Pharmacy, [address] [place] [address] [place] [address] 12/14/2024 9:00 AM EST Office Visit Gastroenterology, [facility] 132 [facility] [place] [address] Berenice Montano CRNP [address] [facility] [place] [address] 12/19/2024 1:00 PM EST Office Visit Family Medicine [address] [place] [phone] Mukesh Hernández CRNP [address] [place] [address] [place] [address] 12/26/2024 10:00 AM EDT Office Visit Cardiology, [facility] 132 [facility] [place] [address] Nellie Frausto PA-C [address] [place] [address] [place] [address] 07/17/2025 1:40 PM EDT Office Visit Family Medicine [address] [place] [phone] Juan Han MD [address] [place] [address] [place] [address] Scheduled Procedures Name Priority Associated Diagnoses Date/Ti [...] 2:54 PM 12/14/2007 5:34 PM Care Teams Magnetic Resonance Imaging Director Relationship Specialty Start Date End Date Juan Han MD [address] [place] [address] [place] [address] PCP - General Family Medicine 07/19/13 documented as of this encounter
--- OUTSIDE RECORDS SUMMARY | 2024-12-29 02:47 | External Medical Summary ---
Author Name Unknown Address Unknown Organization K01:[facility] - [address] [place] [address] Laboratory Report Ordering Provider Test Date Status RICARDO BARR 07/04/2024 08:40:02 Final Observation Date Value Abnormality Reference (Units ) Status LDL, (direct) 07/04/2024 08:40:02 47 <=129 (mg/dL) Final LDL Cholesterol Reference Ra nges (mg/dL):
<70 Target level for high risk ASCVD patient
<100 Optimal for general population
100-129 Near optimal for general population
130-159 Borderline high
160-189 High
>=190 Very high Performing Location [facility] - [address] [place] [address]
--- OUTSIDE RECORDS SUMMARY | 2024-12-29 02:47 | External Medical Summary ---
Author Name Unknown Address Unknown Organization [id number][place] [facility] [place] [address] [facility] [place] [address] Laboratory Report Ordering Provider Test Date Status SORAIDA AUGUSTINE 07/04/2024 08:40:02 Final Observation Date Value Abnormality Reference (Units ) Status HbA1C 07/04/2024 08:40:02 6.7 Above high normal 4. 0-5.6 (%) Final The use of HbA1c to monitor glycemic status is based on normal hemoglobin and HbA composition. This test should not be used in patients with abnormal hemoglobin that affects the half life of the red blood cell or the in vivo glycation rates. Glucose, estimated average 07/04/2024 08:40:02 146 Above high normal <126 (mg/dL) Talon spencer Performing Location [facility] [place] [address] [facility] [address] [facility] [place] [address]
--- OUTSIDE RECORDS SUMMARY | 2024-12-29 02:47 | External Medical Summary ---
Author Name Unknown Address Unknown Organization [id number]:LABORATORY [facility] [place] - [address] [facility] [address] Laboratory Report Ordering Provider Test Date Status GARY ORTEGA 07/04/2024 08:40:02 Final Observation Date Value Abnormality Reference (Units ) Status SYNC LEUKOCYTES IN BLOOD BY AUTOMATED COUNT 07/04/2024 08:40:02 5.61 4.00-10.80 (K/uL) Final Segs 07/04/2024 08:40:02 56.0 40.0-75.0 (%) Final Lymphs % 07/04/2024 08:40:02 31.7 18.0-42.0 (%) Final Monos 07/04/2024 08:40:02 6.6 1.0-11.0 (%) Final Eosinophils 07/04/2024 08:40:02 3.9 0.0-6.0 (%) Final Basos 07/04/2024 08:40:02 1.4 0.0-2.0 (%) Final Immature Granulocyte, Percent 07/04/2024 08:40:02 0.4 0.0-2.0 (%) Final Absolute Segs 07/04/2024 08:40:02 3.14 1.80-7.70 (K/uL) Final Lymphs, absolute 07/04/2024 08:40:02 1.78 1.00-4.80 (K/ul) Final Monos, Abs 07/04/2024 08:40:02 0.37 0.00-1.10 (K/uL) Final Eos, Abs 07/04/2024 08:40:02 0.22 0.00-0.70 (K/uL) Final Basos, Abs 07/04/2024 08:40:02 0.08 0.00-0.20 (K/uL) Final Immature Granulocytes, Number 07/04/2024 08:40:02 0.02 0.00-0.20 (K/uL) Final Performing Location LABORATORY [facility] [place] - [address] [facility] [address]
--- OUTSIDE RECORDS SUMMARY | 2024-12-29 02:47 | External Medical Summary ---
Author Name Unknown Address Unknown Organization [id number]:LABORATORY [facility] [place] - [address] [facility] [address] Laboratory Report Ordering Provider Test Date Status RICARDO BARR 07/04/2024 08:40:02 Final Observation Date Value Abnormality Reference (Units ) Status Triglyceride 07/04/2024 08:40:02 259 Above high normal <=174 (mg/dL) Final Triglyceride Reference Range s (mg/dL):
<150 Acceptable
150-174 Borderline high
175-499 High
>=500 Very high Cholesterol 07/04/2024 08:40:02 117 <200 (mg /dL) Final Total Cholesterol Reference Ranges (mg/dL):
<200 Desirable
200-239 Borderline high
>=240 High HDL 07/04/2024 08:40:02 32 Below low normal >39 (mg/dL) Final HDL Cholesterol Reference Ra nges (mg/dL):
>=60 High (Desirable)
<50 Low (Undesirable) For Females
<40 Low (Undesirable) For Males NON-HDL CHOLESTEROL 07/04/2024 08:40:02 85 <=159 (mg/dL) Final Non-HDL Cholesterol Referenc e Range (mg/dL):
<100 Target level for high risk ASCVD patient
<130 Optimal for general population
130-159 Near optimal for general population
160-189 Borderline High
190-219 High
>=220 Very High Performing Location LABORATORY [facility] [place] - [address] [place] [address]
--- OUTSIDE RECORDS SUMMARY | 2024-12-29 02:47 | External Medical Summary ---
Author Name Unknown Address Unknown Organization [id number]:[place] [facility] [place] [address] [place] [address] Laboratory Report Ordering Provider Test Date Status CORTNEYRICARDO 07/04/2024 08:40:02 Final Observation Date Value Abnormality Reference (Units ) Status TSH 07/04/2024 08:40:02 2.15 0.27-4.20 (uIU/mL) Final Performing Location [facility] - [address] [place] [address]
--- OUTSIDE RECORDS SUMMARY | 2024-12-29 02:47 | External Medical Summary | Summary of Care ---
Author Name Unknown Organization [facility] Address [address] [place] [address] Phone [phone] Care Team Providers Care Freight Trucker Name Role Phone Juan Han MD Primary Care Provide r Reason for Visit * Reason Comments eRx-Medication Refill Encounter Details Date Type Department Care Team (Late st Contact Info) Description 07/06/2024 Refill Family Medicine [address] [phone] Juan Han MD [address] [place] [address] [place] [address] Allergies Active Allergy Reactions Criticality Noted [...] TWICE DAILY 180 Tablet 3 4 Active Enalapril Maleate 2.5 MG Oral Tablet (Vasotec) TAKE ONE TABLET TWICE DAILY 180 Tablet 3 3 024 Discontinued documented as of this encounter (statuses as of 07/07/2024) Active Problems Problem Noted Date Diagnosed Date Chronic ischemic heart disease 02/04/2024 HTN, goal below 130/80 02/04/2024 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 ([place]OR) 01/11/2023 Systolic congestive heart failure 01/11/2023 S/P drug eluting coronary stent placement 2022 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 Coronary artery disease invo lving [place] coronary artery of [place] heart without angina pectoris 01/11/2023 Incisional hernia, [...] mRNA, LNP-s, No Pre serve, 2-Dose Series ([employer]) 08/12/2021,12/28/2020,12/02/2020 COVID-19, MRNA-LNP, 23-24, P F, 30 MCG/0.3 mL, 12 YRS AND ABOVE, IM ([employer]-Comirnaty) 07/30/2023 Covid-19, Mrna, Lnp-s, Pf, B ivalent, [...] encounter Miscellaneous Notes * Telephone Encounter - Jorge Langston [facility] - 07/07/2024 10:45 AM EDTSigned Prescriptions: Disp Refills Enalapril Maleate 2.5 MG Oral Tablet (Vaso*180 Ta*3 Sig: TAKE ONE TABLET TWICE DAILYAuthorizing Provider: JUAN HAN User: JORGE LANGSTON- documented in this encounter Plan of Treatment Upcoming Encounters Date Type Department Care Team (Late st Contact Info) Description 08/02/2024 10:50 AM EDT Anticoagulation Pharmacy, [address] [place] [address] [place] [address] 12/14/2024 9:00 AM EST Office Visit Gastroenterology, [facility] [address] [facility] [place] [address] Berenice Montano CRNP [address] [facility] [place] [address] 12/19/2024 1:00 PM EST Office Visit Family Medicine [address] [place] [phone] Mukesh Hernández CRNP [address] [place] [address] [place] [address] 12/26/2024 10:00 AM EDT Office Visit Cardiology, [address] [place] [address] Nellie Frausto PA-C [address] [place] [address] [place] [address] 07/17/2025 1:40 PM EDT Office Visit Family Medicine [address] [place] [phone] Juan Han MD [address] [place] [address] [place] [address] Scheduled Procedures Name Priority Associated Diagnoses Date/Ti [...] 2:54 PM 12/14/2007 5:34 PM Care Teams Freight Trucker Relationship Specialty Start Date End Date Juan Han MD [address] [place] [address] [place] [address] PCP - General Family Medicine 07/19/13 documented as of this encounter
--- OUTSIDE RECORDS SUMMARY | 2024-12-29 02:47 | External Medical Summary ---
Author Name Unknown Address Unknown Organization [id number]:[facility] - [address] [place] [address] Laboratory Report Ordering Provider Test Date Status SORAIDA AUGUSTINE 07/04/2024 08:40:02 Final Normal: <30 mg/g creatinine< br/>High: 30-300 mg/g creatinine
Very High: >300 mg/g creatinine
Nephrotic: >2200 mg/g creatinine Observation Date Value Abnormality Reference (Units ) Status Albumin, Urine 07/04/2024 08:40:02 1.00 (mg/dL) Final Creatinine, Urine 07/04/2024 08:40:02 167 (mg/dL) Final Albumin/Creatinine [Mass Ratio] in Urine 07/04/2024 08:40:02 6 <30 (mg/g Creat) Final Performing Location [facility] [place] - [address] [place] [address]
--- OUTSIDE RECORDS SUMMARY | 2024-12-29 02:47 | External Medical Summary | Summary of Care ---
Author Name Unknown Organization [facility] Address [address] [place] [address] Phone [phone] Care Team Providers Care Field Hauler Name Role Phone Neo Han MD Primary Care Provide r Reason for Visit * Reason Comments Dosage Adjustment Via Phone (anticoag Cl inic) Encounter Details Date Type Department Care Team (Latest Contact Info) Description 07/05/2024 6:00 AM EDT Anticoagulation Pharmacy, [address] [place] [address] [place] [address] Anticoagulation management encounter*; Chronic ischemic heart disease; HTN, goal below 130/80; Frequent PVCs; Apical mural thrombus Allergies Active Allergy Reactions Criticality Noted Date Comments Niacin 01/07/2022 Other reaction(s): ITCHY SPLOTCHY RASH Niacin Er Flushing 09/04/2010 documented as of this encounter (statuses as of 07/05/2024) Medications Medication Sig Dispensed Refills Start Date End Date Status FIBER FORMULA PO CAPS Take 1 Cap by mouth daily. Active LANCETS MISCIndications:Di abetes mellitus type 2, diet-controlled (HCC) Use once daily as directed Dx 250.00 1 Box 5 07/24/2013 Active Cyanocobalamin (VITAMIN B-12) 1000 MCG Tablet Take 1 Tablet by mouth in the morning. 05/16/2019 Active Blood Glucose Monitoring Suppl ([employer] VERIO) w/Device KIT Test daily E11.9 1 Kit 04/16/2020 Active OneTouch UltraSoft LancetsIndications :Type 2 diabetes mellitus with hemoglobin A1c goal of less than 8.0% ([facility]) Test daily. E11.9 100 Each 1 10/02/2021 Active Acetaminophen 325 MG Oral Tablet (Tylenol) Take 2 Tablets by mouth every 6 hours as needed. 01/12/2022 Active Advanced Probiotic Oral Capsule Take by mouth 2 Capsules daily . For 10 days Active [employer]Touch Verio In Vitro Strip (Glucose Blood)Indications: Type [...] as of this encounter (statuses as of 07/05/2024) Active Problems Problem Noted Date Diagnosed Date Chronic ischemic heart disease 02/04/2024 HTN, goal below 130/80 02/04/2024 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 ([place]YLOR) 01/11/2023 Systolic congestive heart failure 01/11/2023 S/P drug eluting coronary stent placement 2022 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 Coronary artery disease invo lving [place] coronary artery of [place] heart without angina pectoris 01/11/2023 Incisional hernia, [...] as of this encounter (statuses as of 07/05/2024) Resolved Problems Problem Noted Date Diagnosed Date [...] as of this encounter (statuses as of 07/05/2024) Immunizations Name Administration Dates Next Due COVID-19 mRNA, LNP-s, No Pre serve, 2-Dose Series ([employer]) 08/12/2021,12/28/2020,12/02/2020 COVID-19, MRNA-LNP, 23-24, P F, 30 [...] * Carlota Walton, [facility] - 07/05/2024 10:34 AM EDT Medication Therapy Disease Management - Anticoagulation Patient: Juanito Yoon | : 1945 Subjective Contacts Contact Date/Time Type Contact Phone/Fax 07/05/2024 10:39 AM EDT Phone (Outgoing) Juanito Yoon (Self) [phone] (H) No Answer/Busy 07/05/2024 10:39 AM EDT Phone (Outgoing) Juanito Yoon (Self) [phone] (M) No Answer/Busy 07/05/2024 01:07 PM EDT Phone (Outgoing) Juanito Yoon (Self) [phone] (H) Spoke to Patient Patient-Reported Symptoms: Patient Findings Negatives: Signs/symptoms of thrombosis, Signs/symptoms of bleeding, Change in health, Change in alcohol use, Change in activity, Upcoming invasive procedure, Missed doses, Extra doses, Change in medications, Change in diet/appetite, Bruising Objective Current Warfarin Dose As of 07/05/2024 Warfarin maintenance plan: 3 mg (3 mg x 1) every Mon, Wed, Fri; 6 mg (3 mg x 2) all other days INR Result As of 07/05/2024 INR goal: 2.0-3.0 INR used for dosin.0 (07/04/2024) Assessment & Plan Warfarin Plan As of 07/05/2024 Full warfarin instructions: 3 mg every Mon, Wed, Fri; 6 mg all other days No change documented: Carlota Walton RPh Next INR check: 08/02/2024 Repeat PT/INR in 4 week(s) Weekly dose: not changed Additional Dosing Information: I spent a total of 10-19 minutes (exact time 10 mins) on the date of service in preparation, delivery, and documentation of the care provided to Juanito Yoon excluding any time spent in the performance of separately billed services or time spent by another provider/QHP. Carlota Walton RPh Clinical Pharmacist 07/05/2024, 10:34 AM documented in this encounter Plan of Treatment Upcoming Encounters Date Type Department Care Team (Late st Contact Info) Description 08/02/2024 10:50 AM EDT Anticoagulation Pharmacy, [address] [place] [address] [place] [address] 12/14/2024 9:00 AM EST Office Visit Gastroenterology, [facility] [address] [place] [address] Berenice Montano CRNP [address] [place] [address] 12/19/2024 1:00 PM EST Office Visit [address] [place] [phone] Mukesh Hernández CRNP [address] [place] [address] [place] [address] 12/26/2024 10:00 AM EDT Office Visit Cardiology, [facility] [address] [facility] [place] [address] Nellie Frausto PA-C [address] [place] [address] [place] [address] 07/17/2025 1:40 PM EDT Office Visit [address] [place] [phone] Neo Han MD [address] [place] [address] [place] [address] Scheduled Procedures Name Priority Associated Diagnoses Date/Ti [...] shot) (#1) 2024 08/04/2005 Colonoscopy 10/26/2024 10/26/2019, 0 06/2020, 11/22/2015, Additional history exists Diabetic Eye [...] as of this encounter Visit Diagnoses Diagnosis Anticoagulation management [...] 2:54 PM 12/14/2007 5:34 PM Care Teams Field Hauler Relationship Specialty Start Date End Date Neo Han MD [address] [place] [address] [place] [phone] PCP - General Family Medicine 07/19/13 documented as of this encounter"
--- NOTE | 2024-12-29 05:26 | Electrocardiogram Report ---
Test Reason : Blood Pressure : */* mmHG Vent. Rate : 118 BPM Atrial Rate : 98 BPM P-R Int : 158 ms QRS Dur : 142 ms QT Int : 376 ms P-R-T Axes : 68 -57 120 degrees QTcB Int : 527 ms Probable Sinus tachycardia with frequent , and consecutive Premature supraventricular complexes Premature ventricular complexes Left axis deviation Non-specific intra-ventricular conduction block Minimal voltage criteria for LVH, may be normal variant ( [employer] product ) Cannot rule out Anterior infarct Abnormal ECG When compared with ECG of 02-Jan-2023 04:32, Atrial runs are now present Premature ventricular complexes are now Present Premature supraventricular complexes are now present Confirmed by Joseph Hebert ([id number]) on 12/29/2024 5:26:13 AM Referred By: Confirmed By: Joseph Hebert
[2024-12-29] MEDS: LEVOTHYROXINE SODIUM 25 MCG TABLET PO SCH (05:42)
[2024-12-29] MEDS: COUGH DROP (SUGAR FREE) LOZ 24 LOZ/1 BOX BUCCAL ONE (05:46)
[2024-12-29 07:47] LABS: Hematocrit (blood only) 32.9 % (42.0-52.0); Hemoglobin 10.8 g/dl (14.0-18.0); Mean Corpuscular Hemoglobin 30.2 pg (25.0-34.0); Mean Corpuscular Hgb Conc 32.8 g/dL (32.0-36.0); Mean Corpuscular Volume 91.9 fL (80.0-100.0); Mean Platelet Volume 12.9 fL (9.4-12.4); Platelet Count 89 K/uL (130-400); RDW Coefficient of Variation 14.1 % (11.5-14.5); RDW Standard Deviation 47.9 fL (36.4-46.3); Red Blood Count 3.58 M/uL (4.70-6.10)
[2024-12-29 07:51] LABS: INR 3.6 (0.9-1.1); Prothrombin Time 34.9 Seconds (9.0-12.0)
[2024-12-29 08:03] LABS: BUN Creatinine Ratio 23.9 (10-20); Calcium 8.5 mg/dl (8.6-10.3); Creatinine Clr Calc Pharmacy 60.6 ml/min; Magnesium 1.5 mg/dl (1.7-2.4); Potassium 3.6 mmol/L (3.5-5.1)
[2024-12-29] MEDS: CITALOPRAM 20 MG TAB PO SCH (08:22)
[2024-12-29] MEDS: METOPROLOL SUCC 50MG EXT REL TAB PO SCH (08:22)
[2024-12-29] MEDS: CLOPIDOGREL BISULFATE 75 MG TAB PO SCH (08:23)
[2024-12-29] MEDS: PANTOprazole 40 MG TAB PO SCH (08:23)
[2024-12-29] MEDS: ATORVASTATIN 40 MG TAB PO SCH (08:23)
[2024-12-29] MEDS: predniSONE 20 MG TAB PO SCH (08:24)
[2024-12-29] MEDS: FENOFIBRATE NANOCRYSTALLIZED 145 MG TABLET PO SCH (08:24)
--- NOTE | 2024-12-29 09:29 | Hospitalist Progress Note ---
Date of Service December 29, 2024 Assessment & Plan (1) RSV (acute bronchiolitis due to respiratory syncytial virus): Plan: Acute hypoxic resp. failure -positive on biofire -procal negative, no leukocytosis however tachycardia and tachypnea with source concerning for overlying CAP Plan: -duoneb q6hrs scheduled and prn -flutter valve, incentive spirometry -gentle diuresis, see below -given extent of respiratory illness, started 5 day course of prednisone -start 5 day course of azithromycin and ceftriaxone 12/29 Pt is feeling better but still on suppl. O2 and w/ diffuse wheezing on phys. exam (2) Pulmonary edema: Plan: -noted on imaging -CT chest and chest xray consistent with pulmonary edema, however, appears intravascuraly dry, no elevated JVP -BNP elevated as well at 611 -has history of HFrEF (EF 40%), however this does not appear to be decompensated HF, just pulmonary edema, perhaps flash pulmonary edema vs. alveolar edema from RSV Plan: -light diuresis with 20 IV daily lasix -Echocardiogram obtained - mild concentric LVH, moderate to severe global hypokinesis of the LV, LV EF 25-30%, LA is moderately dilated, AV sclerosis moderate, without significant . mild to moderate mitral regurg. RV syst. pressure elevated at 30-40mm Hg -if hypoxia worsens, may need Bipap for bilevel ventilation (3) Sepsis: Plan: -tachycardic, tachypneic on admission , with a source -concern for overlying CAP, see above -lactic acid 1.8, blood cultures -pending (4) CAP (community acquired pneumonia): Plan: -see above -check sputum culture, blood cultures x2 (5) CAD (coronary artery disease): Plan: -noted (6) Apical mural thrombus: Plan: -INR supratherapeutic Plan: -hold warfarin (7) Myocardial injury: Plan: -likely in setting of RSV Leukopenia - likely secondary to current illness, cont. to monitor CBC Plan dvt ppx warfarin Admission and Anticipated Discharge Date Admission Date: December 28, 2024 Subjective Pt seen in follow up of hypoxic resp. failure, + RSV Says his was hospitalized for RSV Currently lying in bed in NAD, on suppl. O2, says his breathing is better Feels cramps in his muscles this AM, nolan. legs no chest pain Review of Systems Review of Systems: All systems reviewed & are unremarkable except as noted in Subjective Physical Exam Physical Exam: Gen: WD/WN M in NAD, on suppl. O2 HEENT: NCAT, EOMI Neck: Supple Lungs: + diffuse wheezing CV: RRR, no edema. Abdomen: Soft, nondistended, No rebound tenderness. Skin: warm, dry Neuro: awake, alert, answers appropriately, moves extremities Psych: Appropriate for situation. Results & Data Results & Data Vital Signs (Past 12 Hours) Vital Signs Temp Pulse Pulse Resp BP Pulse Ox O2 Del Method 12/29/24 08:23 88 18 98 Nasal Cannula 12/29/24 07:56 36.5 C 80 18 113/70 99 Nasal Cannula 12/29/24 02:23 81 20 96 Nasal Cannula 12/28/24 22:00 85 22 98 Nasal Cannula O2 Flow Rate 12/29/24 08:23 2 12/29/24 07:56 2 12/29/24 02:23 2 12/28/24 22:00 2 Laboratory Results 12/29/24 12/28/24 12/28/24 Range/Units 05:32 21:35 16:16 WBC 1.90 L (4.8-10.8) K/ul RBC 3.58 L (4.70-6.10) M/uL Hgb 10.8 L (14.0-18.0) g/dl Hct 32.9 L (42.0-52.0) % MCV 91.9 (80.0-100.0) fL MCH 30.2 (25.0-34.0) pg MCHC 32.8 (32.0-36.0) g/dL RDW Std Deviation 47.9 H (36.4-46.3) fL RDW Coeff of [place] 14.1 (11.5-14.5) % Plt Count 89 L (130-400) K/uL MPV 12.9 H (9.4-12.4) fL Immature Gran % (Auto) % Neut % (Auto) % Lymph % (Auto) % [place] % (Auto) % Eos % (Auto) % Baso % (Auto) % Neut # (Auto) (1.40-6.50) K/uL Lymph # (Auto) (1.20-3.40) K/uL [place] # (Auto) (0.11-0.59) K/uL Eos # (Auto) (0.00-0.50) K/uL Baso # (Auto) (0.00-0.20) K/uL Immature Gran # (Auto) (0.01-0.20) K/uL PT 34.9 H (9.0-12.0) Seconds INR 3.6 H (0.9-1.1) APTT (21-31) Seconds PTT Ratio VBG pH 7.33 L (7.36-7.41) VBG pCO2 40 (38-50) mmHg VBG pO2 51 mmHg VBG HCO3 21 mmol/L VBG O2 Saturation 80.2 % VBG Base Excess -4.5 mEq/L Sodium 138 (136-145) mmol/L Potassium 3.6 (3.5-5.1) mmol/L Chloride 103 (98-107) mmol/L Carbon Dioxide 27 (21-32) mmol/L Anion Gap 8 (3-11) BUN 26 H (6-23) mg/dl Creatinine 1.09 (0.6-1.4) mg/dl Est Cr Clr Drug Dosing 60.6 ml/min eGFR 69.90 BUN/Creatinine Ratio 23.9 H (10-20) Glucose 203 H (70-99(Fasting)) mg/dl Lactate 1.8 (0.4-2.0) mmol/L Calcium 8.5 L (8.6-10.3) mg/dl Magnesium 1.5 L (1.7-2.4) mg/dl Total Bilirubin (0.2-1.0) mg/dl AST (13-39) U/L ALT (7-52) U/L Alkaline Phosphatase (34-104) U/L Troponin I High Sens (0-20) pg/ml B-Natriuretic Peptide 611 H (0-100) pg/ml Total Protein (6.0-8.3) gm/dl Albumin (3.4-5.0) gm/dl Globulin (2.5-4.0) gm/dl Albumin/Globulin Ratio (0.9-2) Procalcitonin 0.11 (0-0.5) ng/ml SARS-CoV-2 (PCR) (Negative) Influenza Type A (PCR) (Neg) Influenza Type B (PCR) (Neg) RSV (RT-PCR) (Neg) 12/28/24 Range/Units 14:52 WBC 4.58 L (4.8-10.8) K/ul RBC 4.04 L (4.70-6.10) M/uL Hgb 12.4 L (14.0-18.0) g/dl Hct 36.1 L (42.0-52.0) % MCV 89.4 (80.0-100.0) fL MCH 30.7 (25.0-34.0) pg MCHC 34.3 (32.0-36.0) g/dL RDW Std Deviation 46.6 H (36.4-46.3) fL RDW Coeff of Guera 14.3 (11.5-14.5) % Plt Count 98 L (130-400) K/uL MPV 12.8 H (9.4-12.4) fL Immature Gran % (Auto) 0.2 % Neut % (Auto) 67.9 % Lymph % (Auto) 17.2 % [place] % (Auto) 11.8 % Eos % (Auto) 2.0 % Baso % (Auto) 0.9 % Neut # (Auto) 3.11 (1.40-6.50) K/uL Lymph # (Auto) 0.79 L (1.20-3.40) K/uL [place] # (Auto) 0.54 (0.11-0.59) K/uL Eos # (Auto) 0.09 (0.00-0.50) K/uL Baso # (Auto) 0.04 (0.00-0.20) K/uL Immature Gran # (Auto) 0.01 (0.01-0.20) K/uL PT 34.5 H (9.0-12.0) Seconds INR 3.6 H (0.9-1.1) APTT 48 H (21-31) Seconds PTT Ratio 1.8 VBG pH (7.36-7.41) VBG pCO2 (38-50) mmHg VBG pO2 mmHg VBG HCO3 mmol/L VBG O2 Saturation % VBG Base Excess mEq/L Sodium 136 (136-145) mmol/L Potassium 3.7 (3.5-5.1) mmol/L Chloride 105 (98-107) mmol/L Carbon Dioxide 22 (21-32) mmol/L Anion Gap 9 (3-11) BUN 27 H (6-23) mg/dl Creatinine 0.98 (0.6-1.4) mg/dl Est Cr Clr Drug Dosing 67.4 ml/min eGFR 79.42 BUN/Creatinine Ratio 27.6 H (10-20) Glucose 129 H (70-99(Fasting)) mg/dl Lactate (0.4-2.0) mmol/L Calcium 8.9 (8.6-10.3) mg/dl Magnesium (1.7-2.4) mg/dl Total Bilirubin 1.0 (0.2-1.0) mg/dl AST 13 (13-39) U/L ALT 7 (7-52) U/L Alkaline Phosphatase 49 (34-104) U/L Troponin I High Sens 49.0 H (0-20) pg/ml B-Natriuretic Peptide (0-100) pg/ml Total Protein 6.6 (6.0-8.3) gm/dl Albumin 4.1 (3.4-5.0) gm/dl Globulin 2.5 (2.5-4.0) gm/dl Albumin/Globulin Ratio 1.6 (0.9-2) Procalcitonin (0-0.5) ng/ml SARS-CoV-2 (PCR) NEGATIVE (Negative) Influenza Type A (PCR) Negative (Neg) Influenza Type B (PCR) Negative (Neg) RSV (RT-PCR) Positive A (Neg) Medications Administered Current Inpatient Medications Acetaminophen (Acetaminophen 325 Mg Tab) 650 mg PO Q4H PRN PRN Reason: pain/fever Stop: 01/27/25 21:13 Albuterol (Albut/Ipratrop 3mg/0.5mg Neb 3 Ml Vial) 3 ml NEB Q6R PRN; Protocol PRN Reason: Shortness Of Breath Stop: 01/27/25 21:13 Albuterol (Albut/Ipratrop 3mg/0.5mg Neb 3 Ml Vial) 3 ml NEB Q6R SAIRA; Protocol Stop: 01/27/25 21:13 Last Admin: 12/29/24 07:32 Dose: 3 ml Atorvastatin Calcium (Atorvastatin 40 Mg Tab) 40 mg PO QAM REPLACED BY [facility] Stop: 01/28/25 08:59 Last Admin: 12/29/24 08:23 Dose: 40 mg Citalopram Hydrobromide (Citalopram 20 Mg Tab) 20 mg PO [facility] Stop: 01/28/25 08:59 Last Admin: 12/29/24 08:22 Dose: 20 mg Clopidogrel Bisulfate (Clopidogrel Bisulfate 75 Mg Tab) [facility] Stop: 01/28/25 08:59 Last Admin: 12/29/24 08:23 Dose: 75 mg Doxycycline Hyclate (Doxycycline Hyclate 100 Mg Cap) 100 mg PO BID REPLACED BY [facility] Stop: 01/02/25 21:59 Last Admin: 12/29/24 08:23 Dose: 100 mg Enalapril Maleate (Enalapril Maleate 5 Mg Tab) 2.5 mg PO BID REPLACED BY [facility] Stop: 01/27/25 21:13 Last Admin: 12/29/24 08:23 Dose: 2.5 mg Fenofibrate (Fenofibrate Nanocrystallized 145 Mg Tablet) 145 mg PO [facility] Stop: 01/28/25 08:59 Last Admin: 12/29/24 08:24 Dose: 145 mg Ceftriaxone Sodium (Rocephin) 2,000 mg in 50 mls @ 100 mls/hr IV Q24H REPLACED BY [facility] Stop: 01/02/25 21:59 Last Infusion: 12/28/24 22:53 Dose: Infused Levothyroxine Sodium (Levothyroxine Sodium 25 Mcg Tablet) 25 mcg PO DAILYBB REPLACED BY [facility] Stop: 01/28/25 06:29 Last Admin: 12/29/24 05:42 Dose: 25 mcg Melatonin (Melatonin 3 Mg Tab) 3 mg PO HS PRN PRN Reason: Insomnia Stop: 01/27/25 21:13 Menthol (Cough Drop (Sugar Free) Martina 24 Martina/1 Box) 1 martina BUCCAL NOW PRN PRN Reason: Sore Throat Stop: 01/28/25 05:42 Metoprolol Succinate (Metoprolol Succ 50mg Ext Rel Tab) 50 mg PO [facility] Stop: 01/28/25 08:59 Last Admin: 12/29/24 08:22 Dose: 50 mg Pantoprazole Sodium (Pantoprazole 40 Mg Tab) 40 mg PO [facility] Stop: 01/28/25 08:59 Last Admin: 12/29/24 08:23 Dose: 40 mg Polyethylene Glycol (Polyethylene (Miralax) 17 Gm Pack) 17 gm PO DAILY PRN PRN Reason: Constipation Stop: 01/27/25 21:13 Prednisone (Prednisone 20 Mg Tab) 40 mg PO QAM REPLACED BY [facility] Stop: 01/28/25 08:59 Last Admin: 12/29/24 08:24 Dose: 40 mg Trazodone HCl (Trazodone Hcl 50 Mg Tab) 50 mg PO HS PRN PRN Reason: Sleep Stop: 01/27/25 21:13 Warfarin Sodium (Warfarin Sod 3 Mg Tab) 3 mg PO DAILY@1600 REPLACED BY [facility] Stop: 01/28/25 15:59 (2) Pulmonary edema Chronicity: acute Qualified Code(s): J81.0 - Acute pulmonary edema (3) Sepsis Sepsis acute organ dysfunction status: without acute organ dysfunction Sepsis type: sepsis due to unspecified organism Qualified Code(s): A41.9 - Sepsis, unspecified organism (4) CAP (community acquired pneumonia) Laterality: unspecified laterality Qualified Code(s): J18.9 - Pneumonia, unspecified organism (5) CAD (coronary artery disease) Associated angina: without angina Coronary Disease-Associated Artery/Lesion type: [place] artery [place] vs. transplanted heart: [place] heart Qualified Code(s): I25.10 - Atherosclerotic heart disease of [place] coronary artery without angina pectoris
[2024-12-29] MEDS: MAGNESIUM SULFATE / D5W 1 GM/100 ML BAG IV ONE ×3 (12:06→17:27)
[2024-12-29] MEDS: POTASSIUM CHLORIDE CRTAB 20 MEQ TABCR PO STA (12:06)
[2024-12-29 12:51] LABS: Troponin I High Sensitivity 27.5 pg/ml (0-20)
[2024-12-29] MEDS ORDERED: methylPREDNISolone 125 MG/2 ML VIAL IV STA ×2 (13:51→16:47)
[2024-12-29] MEDS ORDERED: ALBUT/IPRATROP 3MG/0.5MG NEB 3 ML VIAL NEB PRN (14:03)
--- NOTE | 2024-12-29 14:39 | XRay Report ---
XR chest 1V portable CLINICAL HISTORY: worsened hypoxia COMPARISON STUDY: 12/28/2024 FINDINGS: The radiographic findings are unchanged. Gross cardiomegaly with evidence of prior coronary bypass surgery is persistent. Pulmonary venous hypertension and bilateral perihilar haziness is pers istent. No focal airspace opacity or pleural effusion. IMPRESSION: Stable exam. A component of CHF is suspected. No evidence of pneumonia ACT 112: Negative or not required by law. Electronically signed by: Rosie Dela Cruz M.D. 12/29/2024 2:37 PM
[2024-12-29] MEDS: methylPREDNISolone 60 MG in SYRINGE 0 ML IV ONE (15:22)
[2024-12-29] MEDS: FUROSEMIDE INJ 20 MG/2 ML VIAL IV ONE (15:22)
[2024-12-29 15:28] LABS: BUN Creatinine Ratio 27.6 (10-20); Calcium 8.8 mg/dl (8.6-10.3); Creatinine Clr Calc Pharmacy 56.9 ml/min; Magnesium 1.7 mg/dl (1.7-2.4); Phosphorus 3.5 mg/dl (2.5-4.9); Potassium 4.4 mmol/L (3.5-5.1)
[2024-12-29 15:38] LABS: Base Excess ABG -3.4 mEq/L (-9-1.8); HCO3 ABG 20 mmol/L (19-24); Oxygen Saturation ABG 99.4 % (90-95); PCO2 ABG 32 mmHg (35-46); PO2 ABG 110 mmHg (80-95); pH ABG 7.41 (7.35-7.45)
[2024-12-29 15:39] LABS: Allen Test Pos (Pos)
[2024-12-29] MEDS: FORMOTEROL 20 MCG/2 ML VIAL NEB STA (16:55)
[2024-12-29] MEDS: BUDESONIDE 0.5 MG/2 ML VIAL (PULMICORT) NEB STA (16:55)
[2024-12-29] MEDS: guaiFENesin 600 MG TABCR PO SCH (16:58)
--- NOTE | 2024-12-29 16:58 | Pulmonary Consultation ---
Date of Consultation December 29, 2024 Assessment & Plan (1) RSV (acute bronchiolitis due to respiratory syncytial virus): Will discontinue prednisone and start the patient on IV methylprednisone 40 mg twice daily to help with bronchiolitis component. Will also add nebulized budesonide with a dose now. Will add Perforomist in addition to DuoNebs every 6 hours. Will give 1 g of magnesium sulfate for bronchodilation as well. Discussed with RT regarding nebulizer treatment therapy. (2) Acute hypoxic respiratory failure: Continue wean oxygen as able. Multifactorial likely related to systolic heart failure and RSV infection. Possible component of chronic hypoxemia. ABG did not reveal any evidence of respiratory acidosis. Mild metabolic acidosis noted likely due to increased work of breathing. (3) Wheeze: We secondary to RSV bronchiolitis. Treatment as above. (4) History of tobacco abuse: Patient quit smoking 20 years ago. Possibly with underlying COPD. Would recommend discharge on ICS/LABA/LAMA inhaler if no contraindications. Recommend outpatient PFTs. (5) Systolic CHF: Recommend cardiology consultation given reduction in EF which may be stress- induced cardiomyopathy from viral infection. Troponins not suggestive of an overt ischemic event. Plan Will follow with you. Thank you for the consult. History of Present Illness Reason for Consultation: RSV, increased work of breathing Attending Physician: Jesse Silver MD History of Present Illness 79-year-old male with a history of coronary artery disease, systolic heart failure, diabetes, hypothyroidism, history of CVA, cirrhosis and IBS who presented to the hospital with increasing shortness of breath and cough. Patient notes that over the last few days he has had night sweats and fevers. He has been feeling short of breath today with exertion and sometimes at rest. He has been wheezing, but feels that his wheezing is improving. He has been getting DuoNebs every 6 hours along with systemic corticosteroids. He is on Rocephin and doxycycline for possible superimposed bacterial pneumonia. Chest CTA yesterday revealed possible CHF and/or infectious bronchitis. CT was poor quality due to motion artifact. No large pulmonary emboli identified. Chest x-ray today reveals a stable exam with perihilar bilateral infiltrates. Blood cultures pending. Sputum cultures not obtained. Respiratory viral panel positive for RSV. Echo completed today reveals an EF of 20 to 25% and mild pulmonary hypertension. Patient was previously a smoker and quit smoking about 20 years ago. He notes he smoked 30 years, 2 packs/day. He denies any history of lung disease that he is aware of. He was never previously on oxygen. Allergies Allergy/AdvReac Type Severity Reaction Status Date / Time niacin Allergy Unknown ITCHY Verified 10/08/23 08:55 SPLOTCHY RASH Home Medications Medication Instructions Recorded Confirmed Type atorvastatin 40 mg tablet (Lipitor) 40 mg PO QAM 12/18/20 12/28/24 History citalopram 40 mg tablet (Celexa) 40 mg PO QAM 12/18/20 12/28/24 History enalapril maleate 2.5 mg tablet 2.5 mg PO BID 12/18/20 12/28/24 History (Vasotec) levothyroxine 25 mcg capsule 25 mcg PO QAM 12/18/20 12/28/24 History cyanocobalamin (vitamin B-12) 1,000 mcg PO DAILY 09/23/21 12/28/24 History 1,000 mcg tablet fenofibrate micronized 134 mg 134 mg PO QAM 09/23/21 12/28/24 History capsule semaglutide 0.25 mg or 0.5 mg (2 0.25 mg subcut Q7D 09/23/21 12/28/24 History mg/1.5 mL) subcutaneous pen injector (Ozempic) sildenafil 100 mg tablet (Viagra) 100 mg PO UD PRN Erectile 09/23/21 12/28/24 History Dysfunction pantoprazole 40 mg tablet,delayed 40 mg PO QAM #30 tabs 09/24/21 12/28/24 Rx release acetaminophen 325 mg tablet 650 mg (2 x 325 mg) PO Q6H PRN 01/12/22 12/28/24 Rx fever or pain #60 tabs psyllium husk 0.4 gram capsule 0.4 g PO DAILY #30 caps 01/12/22 12/28/24 Rx (Fiber (psyllium husk)) docusate sodium 100 mg capsule 100 mg PO BID PRN Constipation 12/31/22 12/28/24 History trazodone 50 mg tablet 50 mg PO HS PRN Sleep 12/31/22 12/28/24 History albuterol sulfate 90 mcg/actuation 2 puff inhalation Q6H PRN 12/28/24 12/28/24 History aerosol inhaler sob/wheezing amoxicillin 875 mg-potassium 1 tab PO BID 12/28/24 12/28/24 History clavulanate 125 mg tablet azithromycin 250 mg tablet 250 mg PO DIRECTED 12/28/24 12/28/24 History metoprolol succinate 50 mg 50 mg PO DAILY 12/28/24 12/28/24 History tablet,extended release 24 hr ondansetron HCl 4 mg tablet 4 mg PO Q8H PRN Nausea And Vomiting 12/28/24 12/28/24 History prednisone 10 mg tablet 10 mg PO UD 12/28/24 12/28/24 History warfarin 3 mg tablet 1 - 2 mg PO UD 12/28/24 12/28/24 History Patient History Medical History Cirrhosis of liver currently stable, f/u specialist at [facility] gw Hx of myocardial infarction 2004, taken to [facility] for double bypass; f/u [facility] cardio GERD (gastroesophageal reflux disease) Hypothyroidism Hx of long-term (current) use of anticoagulants eliquis and clopidogrel Cervical disc disorder at C5-C6 level with radiculopathy Lumbar back pain with radiculopathy affecting left lower extremity "off and on" High cholesterol High blood pressure Heart disease Foraminal stenosis of lumbar region L5-S1 DDD (degenerative disc disease), lumbar Rupture of hip abductor tendon no sx Surgical History History of esophagogastroduodenoscopy (EGD) Hx of colonoscopy Hx of tonsillectomy Hx of cardiac cath 2004, [facility], x1 stent 04/2023, having normal checkup w/echo and saw blood clot in the left ventricle, [facility], x1 stent; f/u [facility] cardio S/P hernia surgery abdominal hernia operations x3 H/O heart bypass surgery 1994, double bypass, [facility]; f/u [facility] cardio H/O shoulder replacement left H/O laminectomy ~age 67 Family History Other Diabetes Heart disease Social History Smoking Status: Former smoker Tobacco Type: Cigarettes Cigarettes Per Day: 2 packs; quit 20 yrs ago; Second Hand Exposure: No; Do You Dip or Chew Tobacco: No; Hx Alcohol Use: Yes Alcohol type: beer Hx Substance Use: No Preferred Language: Bengali Communication Ability: Effective Loom Starter Required: No Beliefs That Will Affect Care: None marital status: Current Living Situation: Spouse current occupational status: retired How many Children do You have: 2 Feels Safe at Home: Yes Safety Concerns: Feels Safe At This Time Assistive Devices: Hearing Aid - Bilateral Review of Systems Review of Systems: All systems reviewed & are unremarkable except as noted in HPI & below Physical Exam Physical Exam: Constitutional: Patient appears to be of their stated age. Elderly and obese appearing male. Eyes: Pupils are equal round and reactive to light. Conjunctivae are normal. Anicteric sclera. Ears nose, mouth and throat: Mallampati class 2. Normal posterior oropharynx. Uvula is midline. Neck: Trachea is midline. Visual inspection is normal. Respiratory: Diffuse expiratory wheezing with prolonged phase of exhalation. Occasional cough. Mild tachypnea. Cardiovascular: Regular rhythm. Tachycardic. No murmurs. No edema. Gastrointestinal: Normal bowel sounds, soft, nontender and nondistended. No hepatosplenomegaly noted. Musculoskeletal: No cyanosis. Patient is able to move all extremities. Strength is 5 out of 5 in the upper and lower extremities. Skin: No rashes, warm dry and intact. Neurologic: No obvious focal neurological deficits seen. Psychiatric: Alert and oriented x3 with a euthymic affect. Results & Data Results & Data Vital Signs (Past 12 Hours) Vital Signs Temp Pulse Pulse Resp BP Pulse Ox O2 Del Method 12/29/24 15:35 36.5 C 101 H 20 125/80 95 Nasal Cannula 12/29/24 14:18 36.6 C 89 18 124/83 96 Nasal Cannula 12/29/24 13:56 72 24 96 Nasal Cannula 12/29/24 11:39 36.6 C 86 18 108/72 98 Nasal Cannula 12/29/24 08:23 88 18 98 Nasal Cannula 12/29/24 08:20 Nasal Cannula 12/29/24 07:56 36.5 C 80 18 112/70 99 Nasal Cannula O2 Flow Rate 12/29/24 15:35 12/29/24 14:18 2 12/29/24 13:56 2 12/29/24 11:39 2 12/29/24 08:23 2 12/29/24 08:20 2 12/29/24 07:56 2 PG Care Time/CCT Total # of Minutes Spent Total Time Spent with Patient: Total time spent is greater than 50% in coordination of care (as documented) at patient's floor/unit and/or counseling patient: Coding Level of Care Code 52179 INT INP/OBS CARE 2/55MIN Diagnoses RSV (acute bronchiolitis due to respiratory syncytial virus) J21.0 Acute hypoxic respiratory failure J96.01 Wheeze R06.2 History of tobacco abuse Z87.891 Systolic CHF I50.20
[2024-12-29] MEDS: methylPREDNISolone 40 MG in SYRINGE 0 ML IV SCH (17:47)
[2024-12-29] MEDS ORDERED: PHARMACY GLYCEMIC MGMT CONSULT PRN (18:10)
[2024-12-29] MEDS ORDERED: GLUCOSE 10 TAB/TUBE PO PRN (19:00)
[2024-12-29] MEDS ORDERED: DEXTROSE 50% 50 ML SYRINGE IV PRN (19:00)
[2024-12-29] MEDS ORDERED: GLUCAGON FOR INJ 1 MG VIAL SQ PRN (19:00)
[2024-12-29] MEDS ORDERED: GLUCOSE 40% GEL 15 GM TUBE PO PRN (19:00)
[2024-12-29] MEDS ORDERED: CARBOHYDRATES FOR HYPOGLYCEMIA PO PRN (19:00)
--- NOTE | 2024-12-29 19:06 | Pharmacy Report ---
Pharmacy Glycemic Short Note 2 - Date of Service December 29, 2024 - Glycemic Short BSG Results (Last 24 hours): 12/29/24 12/29/24 05:32 14:33 Glucose 203 H 196 H OUTPATIENT ANTIDIABETIC REGIMEN: * Semaglutide 0.25 mg SC weekly - Mondays * A1c pending ASSESSMENT: * Juanito is a 79 yo T2DM admitted with acute hypoxic respiratory failure likely secondary to systolic heart failure and RSV infection. * Started on high dose IV steroids (Methylpred 60 mg IV x 1, then methylpred 40 mg IV BID). * Unknown level of outpatient DM control. A1c pending. Anticipate need of both basal + bolus SQ insulin to combat steroid induced hyperglycemia. PLAN FOR INPATIENT GLYCEMIC CONTROL: * Basal insulin * Lantus 20 units SQ X 1 * Bolus insulin * NovoLog per scale ACHS or Q6hrs while NPO * Goal Range: Low 110 mg/dL - High 140 mg/dL * Correction Factor: 20 mg/dL/unit * Nutritional / Prandial insulin per carb ratio of 1 unit per 7 grams CHO consumed
[2024-12-29] MEDS: BUDESONIDE 0.5 MG/2 ML VIAL (PULMICORT) NEB SCH (19:39)
[2024-12-29] MEDS: FORMOTEROL 20 MCG/2 ML VIAL NEB SCH (19:39)
[2024-12-29] MEDS: LANTUS PER UNIT CHARGE SC ONE (20:03)
[2024-12-29] MEDS: INSULIN ASPART PER UNIT CHARGE SC SCH (20:03)
--- NOTE | 2024-12-29 22:02 | Electrocardiogram Report ---
Test Reason : Blood Pressure : */* mmHG Vent. Rate : 103 BPM Atrial Rate : 103 BPM P-R Int : 174 ms QRS Dur : 142 ms QT Int : 386 ms P-R-T Axes : 44 -59 116 degrees QTcB Int : 505 ms Sinus tachycardia with Premature atrial complexes and Premature ventricular complexes or Fusion compl exes Left axis deviation Non-specific intra-ventricular conduction block Minimal voltage criteria for LVH, may be normal variant ( Leroy product ) Cannot rule out Anterior infarct (cited on or before 23-Sep-2021) T wave abnormality, consider lateral ischemia Abnormal ECG When compared with ECG of 28-Dec-2024 14:46, No significant change Confirmed by Joseph Hebert ([id number]) on 12/29/2024 10:02:10 PM Referred By: REFERRED SELF Confirmed By: Joseph Hebert
--- NOTE | 2024-12-29 22:03 | Electrocardiogram Report ---
Test Reason : Blood Pressure : */* mmHG Vent. Rate : 99 BPM Atrial Rate : 99 BPM P-R Int : 172 ms QRS Dur : 142 ms QT Int : 400 ms P-R-T Axes : 61 -51 123 degrees QTcB Int : 513 ms Poor data quality, interpretation may be adversely affected Sinus rhythm with Premature atrial complexes Left axis deviation Non-specific intra-ventricular conduction block T wave abnormality, consider lateral ischemia Abnormal ECG When compared with ECG of 28-Dec-2024 16:06, Premature ventricular complexes are no longer Present Confirmed by Joseph Hebert ([id number]) on 12/29/2024 10:03:16 PM Referred By: REFERRED SELF Confirmed By: Joseph Hebert
[2024-12-30 05:54] LABS: Basophils # (auto) 0.01 K/uL (0.00-0.20); Basophils % (auto) 0.2 %; Hematocrit (blood only) 32.2 % (42.0-52.0); Hemoglobin 10.7 g/dl (14.0-18.0); Immature Granulocytes # (auto) 0.04 K/uL (0.01-0.20); Immature Granulocytes % (auto) 0.9 %; Lymphocytes # (auto) 0.39 K/uL (1.20-3.40); Lymphocytes % (auto) 8.9 %; Mean Corpuscular Hgb Conc 33.2 g/dL (32.0-36.0); Mean Corpuscular Volume 90.2 fL (80.0-100.0); Mean Platelet Volume 12.5 fL (9.4-12.4); Monocytes # (auto) 0.21 K/uL (0.11-0.59); Monocytes % (auto) 4.8 %; Neutrophils # (auto) 3.74 K/uL (1.40-6.50); Neutrophils % (auto) 85.2 %; Platelet Count 89 K/uL (130-400); RDW Standard Deviation 46.6 fL (36.4-46.3); Red Blood Count 3.57 M/uL (4.70-6.10); White Blood Count 4.39 K/ul (4.8-10.8)
[2024-12-30 06:11] LABS: BUN Creatinine Ratio 34.6 (10-20); Calcium 8.7 mg/dl (8.6-10.3); Creatinine Clr Calc Pharmacy 61.7 ml/min; Magnesium 1.8 mg/dl (1.7-2.4); Phosphorus 2.8 mg/dl (2.5-4.9); Potassium 4.4 mmol/L (3.5-5.1)
[2024-12-30 06:19] LABS: INR 3.1 (0.9-1.1)
[2024-12-30 07:42] LABS: Estimated Average Glucose 111 mg/dl; Hemoglobin A1C 5.5 % (4.5-5.6)
--- NOTE | 2024-12-30 08:09 | Pulmonology Progress Note ---
Date of Service December 30, 2024 Assessment & Plan (1) RSV (acute bronchiolitis due to respiratory syncytial virus): (2) Acute hypoxic respiratory failure: (3) Wheeze: (4) History of tobacco abuse: (5) Systolic CHF: Plan CT chest 12/28/2024 personally reviewed: Motion degraded study Minimal bilateral pleural effusion Subcarinal lymphadenopathy Patchy opacity in the right upper lobe perifissural No significant mediastinal lymphadenopathy 2D echo 12/29/2024: Mild concentric LVH, EF 25-30%, moderate to severe global hypokinesis, aortic valve sclerosis, RVSP 30-40 mmHg, mild to moderate MR, mild TR, LA moderately dilated --Acute hypoxic respiratory failure Secondary to RSV bronchiolitis leading to COPD exacerbation [id number] smoking history Respiratory BioFire positive for RSV on 12/28/2024 Procalcitonin 0.11 BNP 460 Not on any inhalers at home --Pulmonary hypertension Likely combination of type II and type III but I do think majority component is from type II --History of smoking [id number] smoking history Quit at the age of 59 Plan: Continue with Solu-Medrol, continue with formoterol as well as budesonide nebulized, Incruse inhaler to be added this admission On discharge would recommend either BrezTri of Trelegy to be used on a daily basis Recommend PFT as an outpatient and pulmonary follow-up Complete the course of antibiotic Please note the above document was generated using voice recognition software. It may contain grammatical, syntax or spelling errors.Any formal questions or concerns about the content, text or information contained within the body of this dictation should be directly addressed to the provider for clarification. Admission and Anticipated Discharge Date Admission Date: December 29, 2024 Subjective Patient seen and examined at bedside. No acute distress, no adverse events overnight. Case was discussed with Dr. Bronson Patient stated that he is feeling better compared to the last couple of days Wheezing has decreased Occasional cough with clear phlegm. Denied any nausea or vomiting Has been getting nebulized treatment Social history: Approximately [id number] smoking history, quit at the age of 59 Review of Systems 2 Review of Systems: All systems reviewed & are unremarkable except as noted in Subjective Physical Exam 2 Physical Exam: Constitutional: No acute distress HEENT: EOMI, PERRLA Respiratory system: Decreased air entry bilaterally, positive expiratory wheeze bilaterally, no rhonchi, no crackles CVS: S1-S2 positive, no murmurs or gallops Abdomen: Soft, nontender, nondistended, positive bowel sounds x4, obese Extremities: +2 pulses bilaterally radialis/ dorsalis pedis, no cyanosis, no edema Neuro: Awake alert oriented x3 Psych: Normal mood and affect G/U: No Brito Skin: no rashes, warm and dry Lymphatic: no cervical or axillary lymphadenopathy Results & Data Results & Data Vital Signs (Past 12 Hours) Vital Signs Temp Pulse Pulse Resp BP Pulse Ox O2 Del Method 12/30/24 07:34 86 22 96 Room Air 12/30/24 02:34 36.6 C 88 18 123/77 95 Nasal Cannula 12/30/24 01:04 88 18 93 Nasal Cannula 12/29/24 22:43 36.6 C 93 H 18 110/72 97 Nasal Cannula 12/29/24 21:43 93 H 18 96 Nasal Cannula O2 Flow Rate 12/30/24 07:34 12/30/24 02:34 12/30/24 01:04 2 12/29/24 22:43 12/29/24 21:43 2 Laboratory Results 12/30/24 05:22 12/30/24 05:22 PG Care Time/CCT Total # of Minutes Spent Total Time Spent with Patient: Total time spent is greater than 50% in coordination of care (as documented) at patient's floor/unit and/or counseling patient: Coding Level of Care Code 64008 SUB INP/OBS CARE 3/50MIN Diagnoses RSV (acute bronchiolitis due to respiratory syncytial virus) J21.0 Acute hypoxic respiratory failure J96.01 Wheeze R06.2 History of tobacco abuse Z87.891 Systolic CHF I50.20
[2024-12-30] MEDS: LANTUS PER UNIT CHARGE SC ONE (09:20)
--- NOTE | 2024-12-30 11:57 | Hospitalist Progress Note ---
Date of Service December 30, 2024 Assessment & Plan (1) RSV (acute bronchiolitis due to respiratory syncytial virus): Plan: Acute hypoxic resp. failure -positive on biofire -procal negative, no leukocytosis however tachycardia and tachypnea with source concerning for overlying CAP Plan: -duoneb q6hrs scheduled and prn -flutter valve, incentive spirometry -gentle diuresis, see below -given extent of respiratory illness, started 5 day course of prednisone -start 5 day course of azithromycin and ceftriaxone 12/29 Pt is feeling better but still on suppl. O2 and w/ diffuse wheezing on phys. exam Then around lunchtime, breathing acutely worsened, wheezy, with chest discomfort Pt was transferred and pulmonary medicine was consulted 12/30 Pt is overall doing better, feels breathing is improved and he is on RA (2) Pulmonary edema: Plan: -noted on imaging -CT chest and chest xray consistent with pulmonary edema, however, appears intravascular dry, no elevated JVP -BNP elevated as well at 611 -has history of HFrEF (EF 40%), however this does not appear to be decompensated HF, just pulmonary edema, perhaps flash pulmonary edema vs. alveolar edema from RSV Plan: -light diuresis with 20 IV daily lasix -Echocardiogram obtained - mild concentric LVH, moderate to severe global hypokinesis of the LV, LV EF 25-30%, LA is moderately dilated, AV sclerosis moderate, without significant . mild to moderate mitral regurg. RV syst. pressure elevated at 30-40mm Hg -if hypoxia worsens, may need Bipap for bilevel ventilation (3) Sepsis: Plan: -tachycardic, tachypneic on admission , with a source -concern for overlying CAP, see above -lactic acid 1.8, blood cultures - negat. for 24 hrs (4) CAP (community acquired pneumonia): Plan: -see above -check sputum culture, blood cultures x2 (5) CAD (coronary artery disease): Plan: -noted (6) Apical mural thrombus: Plan: -INR supratherapeutic Plan: -hold warfarin (7) Myocardial injury: Plan: -likely in setting of RSV Leukopenia - likely secondary to current illness, cont. to monitor CBC Plan dvt ppx warfarin Admission and Anticipated Discharge Date Admission Date: December 29, 2024 Subjective Pt seen in follow up of hypoxic resp. failure, + RSV Says his was hospitalized for RSV Currently lying in bed in NAD, on RA, says his breathing is better no chest pain Overall reports feeling better, even was able to eat after a long time Reports sitting in chair feels better for his breathing Yesterday pt's breathing acutely worsened, very wheezy, with chest discomfort was transferred to PCU and pulmonary med was consulted Review of Systems Review of Systems: All systems reviewed & are unremarkable except as noted in Subjective Physical Exam Physical Exam: Gen: WD/WN M in NAD, on RA HEENT: NCAT, EOMI Neck: Supple Lungs: wheezing currently improved CV: RRR, no edema. Abdomen: Soft, nondistended, No rebound tenderness. Skin: warm, dry Neuro: awake, alert, answers appropriately, moves extremities Psych: Appropriate for situation. Results & Data Results & Data Vital Signs (Past 12 Hours) Vital Signs Temp Pulse Pulse Pulse Resp BP Pulse Ox 12/30/24 10:17 36.4 C L 90 16 113/72 97 12/30/24 09:54 80 12/30/24 09:54 12/30/24 07:55 36.4 C L 91 H 15 123/76 96 12/30/24 07:34 86 22 96 12/30/24 02:34 36.6 C 88 18 123/77 95 12/30/24 01:04 88 18 93 O2 Del Method O2 Flow Rate 12/30/24 10:17 Room Air 12/30/24 09:54 12/30/24 09:54 Room Air 12/30/24 07:55 Room Air 12/30/24 07:34 Room Air 12/30/24 02:34 Nasal Cannula 12/30/24 01:04 Nasal Cannula 2 Laboratory Results 12/30/24 12/30/24 12/29/24 Range/Units 07:56 05:22 19:10 WBC 4.39 L (4.8-10.8) K/ul RBC 3.57 L (4.70-6.10) M/uL Hgb 10.7 L (14.0-18.0) g/dl Hct 32.2 L (42.0-52.0) % MCV 90.2 (80.0-100.0) fL MCH 30.0 (25.0-34.0) pg MCHC 33.2 (32.0-36.0) g/dL RDW Std Deviation 46.6 H (36.4-46.3) fL RDW Coeff of [place] 14.0 (11.5-14.5) % Plt Count 89 L (130-400) K/uL MPV 12.5 H (9.4-12.4) fL Immature Gran % (Auto) 0.9 % Neut % (Auto) 85.2 % Lymph % (Auto) 8.9 % [place] % (Auto) 4.8 % Eos % (Auto) 0.0 % Baso % (Auto) 0.2 % Neut # (Auto) 3.74 (1.40-6.50) K/uL Lymph # (Auto) 0.39 L (1.20-3.40) K/uL [place] # (Auto) 0.21 (0.11-0.59) K/uL Eos # (Auto) 0.00 (0.00-0.50) K/uL Baso # (Auto) 0.01 (0.00-0.20) K/uL Immature Gran # (Auto) 0.04 (0.01-0.20) K/uL PT 30.0 H (9.0-12.0) Seconds INR 3.1 H (0.9-1.1) ABG pH (7.35-7.45) ABG pCO2 (35-46) mmHg ABG pO2 (80-95) mmHg ABG HCO3 (19-24) mmol/L ABG O2 Saturation (90-95) % ABG Base Excess (-9-1.8) mEq/L Mayank Test (Pos) Oxygen Given Sodium 136 (136-145) mmol/L Potassium 4.4 (3.5-5.1) mmol/L Chloride 104 (98-107) mmol/L Carbon Dioxide 26 (21-32) mmol/L Anion Gap 6 (3-11) BUN 37 H (6-23) mg/dl Creatinine 1.07 (0.6-1.4) mg/dl Est Cr Clr Drug Dosing 61.7 ml/min eGFR 71.47 BUN/Creatinine Ratio 34.6 H (10-20) Glucose 188 H (70-99(Fasting)) mg/dl POC Glucose 159 H 249 H (70-99) mg/dl Estimat Average Glucose 111 mg/dl Hemoglobin A1c 5.5 (4.5-5.6) % Calcium 8.7 (8.6-10.3) mg/dl Phosphorus 2.8 (2.5-4.9) mg/dl Magnesium 1.8 (1.7-2.4) mg/dl Troponin I High Sens (0-20) pg/ml B-Natriuretic Peptide (0-100) pg/ml Nasal Screen MRSA (PCR) (Negative) Urine Legionella Ag 12/29/24 12/29/24 12/29/24 Range/Units 17:57 15:28 15:25 WBC (4.8-10.8) K/ul RBC (4.70-6.10) M/uL Hgb (14.0-18.0) g/dl Hct (42.0-52.0) % MCV (80.0-100.0) fL MCH (25.0-34.0) pg MCHC (32.0-36.0) g/dL RDW Std Deviation (36.4-46.3) fL RDW Coeff of [place] (11.5-14.5) % Plt Count (130-400) K/uL MPV (9.4-12.4) fL Immature Gran % (Auto) % Neut % (Auto) % Lymph % (Auto) % [place] % (Auto) % Eos % (Auto) % Baso % (Auto) % Neut # (Auto) (1.40-6.50) K/uL Lymph # (Auto) (1.20-3.40) K/uL [place] # (Auto) (0.11-0.59) K/uL Eos # (Auto) (0.00-0.50) K/uL Baso # (Auto) (0.00-0.20) K/uL Immature Gran # (Auto) (0.01-0.20) K/uL PT (9.0-12.0) Seconds INR (0.9-1.1) ABG pH 7.41 (7.35-7.45) ABG pCO2 32 L (35-46) mmHg ABG pO2 110 H (80-95) mmHg ABG HCO3 20 (19-24) mmol/L ABG O2 Saturation 99.4 H (90-95) % ABG Base Excess -3.4 (-9-1.8) mEq/L Mayank Test Pos (Pos) Oxygen Given 2L Sodium (136-145) mmol/L Potassium (3.5-5.1) mmol/L Chloride (98-107) mmol/L Carbon Dioxide (21-32) mmol/L Anion Gap (3-11) BUN (6-23) mg/dl Creatinine (0.6-1.4) mg/dl Est Cr Clr Drug Dosing ml/min eGFR BUN/Creatinine Ratio (10-20) Glucose (70-99(Fasting)) mg/dl POC Glucose (70-99) mg/dl Estimat Average Glucose mg/dl Hemoglobin A1c (4.5-5.6) % Calcium (8.6-10.3) mg/dl Phosphorus (2.5-4.9) mg/dl Magnesium (1.7-2.4) mg/dl Troponin I High Sens (0-20) pg/ml B-Natriuretic Peptide 460 H (0-100) pg/ml Nasal Screen MRSA (PCR) Negative (Negative) Urine Legionella Ag Pending 12/29/24 12/29/24 Range/Units 14:33 05:32 WBC (4.8-10.8) K/ul RBC (4.70-6.10) M/uL Hgb (14.0-18.0) g/dl Hct (42.0-52.0) % MCV (80.0-100.0) fL MCH (25.0-34.0) pg MCHC (32.0-36.0) g/dL RDW Std Deviation (36.4-46.3) fL RDW Coeff of Guera (11.5-14.5) % Plt Count (130-400) K/uL MPV (9.4-12.4) fL Immature Gran % (Auto) % Neut % (Auto) % Lymph % (Auto) % [place] % (Auto) % Eos % (Auto) % Baso % (Auto) % Neut # (Auto) (1.40-6.50) K/uL Lymph # (Auto) (1.20-3.40) K/uL [place] # (Auto) (0.11-0.59) K/uL Eos # (Auto) (0.00-0.50) K/uL Baso # (Auto) (0.00-0.20) K/uL Immature Gran # (Auto) (0.01-0.20) K/uL PT (9.0-12.0) Seconds INR (0.9-1.1) ABG pH (7.35-7.45) ABG pCO2 (35-46) mmHg ABG pO2 (80-95) mmHg ABG HCO3 (19-24) mmol/L ABG O2 Saturation (90-95) % ABG Base Excess (-9-1.8) mEq/L Mayank Test (Pos) Oxygen Given Sodium 135 L (136-145) mmol/L Potassium 4.4 D (3.5-5.1) mmol/L Chloride 103 (98-107) mmol/L Carbon Dioxide 22 (21-32) mmol/L Anion Gap 10 (3-11) BUN 32 H (6-23) mg/dl Creatinine 1.16 (0.6-1.4) mg/dl Est Cr Clr Drug Dosing 56.9 ml/min eGFR 64.87 BUN/Creatinine Ratio 27.6 H (10-20) Glucose 196 H (70-99(Fasting)) mg/dl POC Glucose (70-99) mg/dl Estimat Average Glucose mg/dl Hemoglobin A1c (4.5-5.6) % Calcium 8.8 (8.6-10.3) mg/dl Phosphorus 3.5 (2.5-4.9) mg/dl Magnesium 1.7 (1.7-2.4) mg/dl Troponin I High Sens 27.0 H 27.5 H D (0-20) pg/ml B-Natriuretic Peptide (0-100) pg/ml Nasal Screen MRSA (PCR) (Negative) Urine Legionella Ag Medications Administered Current Inpatient Medications Acetaminophen (Acetaminophen 325 Mg Tab) 650 mg PO Q4H PRN PRN Reason: pain/fever Stop: 01/27/25 21:13 Albuterol (Albut/Ipratrop 3mg/0.5mg Neb 3 Ml Vial) 3 ml NEB Q6R [facility]; Protocol Stop: 01/27/25 21:13 Last Admin: 12/30/24 07:34 Dose: Not Given Albuterol (Albut/Ipratrop 3mg/0.5mg Neb 3 Ml Vial) 3 ml NEB Q2H PRN; Protocol PRN Reason: Shortness Of Breath Stop: 01/27/25 21:13 Atorvastatin Calcium (Atorvastatin 40 Mg Tab) [facility] [place] Stop: 01/28/25 08:59 Last Admin: 12/30/24 09:06 Dose: 40 mg Budesonide (Budesonide 0.5 Mg/2 Ml Vial (Pulmicort)) 0.5 mg NEB BIDR [facility] Stop: 01/28/25 18:59 Last Admin: 12/30/24 07:34 Dose: 0.5 mg Citalopram Hydrobromide (Citalopram 20 Mg Tab) 20 mg PO [facility] Stop: 01/28/25 08:59 Last Admin: 12/30/24 09:07 Dose: 20 mg Clopidogrel Bisulfate (Clopidogrel Bisulfate 75 Mg Tab) 75 mg PO [facility] Stop: 01/28/25 08:59 Last Admin: 12/30/24 09:07 Dose: 75 mg Dextrose (Dextrose 50% 50 Ml Syringe) 25 - 50 ml IV UD PRN; Protocol PRN Reason: Hypoglycemia Protocol Stop: 01/28/25 18:59 Doxycycline Hyclate (Doxycycline Hyclate 100 Mg Cap) 100 mg PO BID [facility] Stop: 01/02/25 21:59 Last Admin: 12/30/24 09:08 Dose: 100 mg Enalapril Maleate (Enalapril Maleate 5 Mg Tab) 2.5 mg PO BID [facility] Stop: 01/27/25 21:13 Last Admin: 12/30/24 09:06 Dose: 2.5 mg Fenofibrate (Fenofibrate Nanocrystallized 145 Mg Tablet) 145 mg PO [facility] Stop: 01/28/25 08:59 Last Admin: 12/30/24 09:07 Dose: 145 mg Formoterol Fumarate (Formoterol 20 Mcg/2 Ml Vial) 20 mcg NEB BIDR [facility] Stop: 01/28/25 18:59 Last Admin: 12/30/24 07:34 Dose: 20 mcg Glucagon (Glucagon For Inj 1 Mg Vial) 1 mg SQ UD PRN; Protocol PRN Reason: Hypoglycemia Protocol Stop: 01/28/25 18:59 Glucose (Glucose 40% Gel 15 Gm Tube) 15 - 30 gm PO UD PRN; Protocol PRN Reason: Hypoglycemia Protocol Stop: 01/28/25 18:59 Glucose (Glucose 10 Tab/Tube) 4 - 8 tab PO UD PRN; Protocol PRN Reason: Hypoglycemia Protocol Stop: 01/28/25 18:59 Guaifenesin (Guaifenesin 600 Mg Tabcr) 600 mg PO Q12 [facility] Stop: 01/28/25 15:14 Last Admin: 12/30/24 09:04 Dose: 600 mg Ceftriaxone Sodium (Rocephin) 2,000 mg in 50 mls @ 100 mls/hr IV Q24H [facility] Stop: 01/02/25 21:59 Last Infusion: 12/29/24 23:08 Dose: Infused Methylprednisolone 40 mg/ (Syringe) 0.64 mls @ 1.5 mls/min IV BID [facility] Stop: 01/28/25 16:59 Last Admin: 12/30/24 09:04 Dose: 1.5 mls/min Insulin Aspart (Insulin Aspart Per Unit Charge) 0 units SC ACHS [facility] Stop: 01/28/25 20:59 Last Admin: 12/30/24 09:20 Dose: 8 units Levothyroxine Sodium (Levothyroxine Sodium 25 Mcg Tablet) 25 mcg PO DAILYBB [facility] Stop: 01/28/25 06:29 Last Admin: 12/30/24 09:07 Dose: 25 mcg Melatonin (Melatonin 3 Mg Tab) 3 mg PO HS PRN PRN Reason: Insomnia Stop: 01/27/25 21:13 Menthol (Cough Drop (Sugar Free) Martina 24 Martina/1 Box) 1 martina BUCCAL NOW PRN PRN Reason: Sore Throat Stop: 01/28/25 05:42 Metoprolol Succinate (Metoprolol Succ 50mg Ext Rel Tab) 50 mg PO QAM [facility] Stop: 01/28/25 08:59 Last Admin: 12/30/24 09:07 Dose: 50 mg Miscellaneous (Carbohydrates For Hypoglycemia ) 15 - 30 gm PO UD PRN PRN Reason: Hypoglycemia Treatment Stop: 01/28/25 18:59 Miscellaneous Information (Pharmacy Glycemic Mgmt Consult) 1 each N/A UD PRN; Protocol PRN Reason: Consult Stop: 01/28/25 18:09 Pantoprazole Sodium (Pantoprazole 40 Mg Tab) 40 mg PO QAM [facility] Stop: 01/28/25 08:59 Last Admin: 12/30/24 09:07 Dose: 40 mg Polyethylene Glycol (Polyethylene (Miralax) 17 Gm Pack) 17 gm PO DAILY PRN PRN Reason: Constipation Stop: 01/27/25 21:13 Trazodone HCl (Trazodone Hcl 50 Mg Tab) 50 mg PO HS PRN PRN Reason: Sleep Stop: 01/27/25 21:13 Warfarin Sodium (Warfarin Sod 3 Mg Tab) 3 mg PO DAILY@1600 [facility] Stop: 01/28/25 15:59 (2) Pulmonary edema Chronicity: acute Qualified Code(s): J81.0 - Acute pulmonary edema (3) Sepsis Sepsis type: sepsis due to unspecified organism Sepsis acute organ dysfunction status: without acute organ dysfunction Qualified Code(s): A41.9 - Sepsis, unspecified organism (4) CAP (community acquired pneumonia) Laterality: unspecified laterality Qualified Code(s): J18.9 - Pneumonia, unspecified organism (5) CAD (coronary artery disease) Coronary Disease-Associated Artery/Lesion type: [place] artery [place] vs. transplanted heart: [place] heart Associated angina: without angina Qualified Code(s): I25.10 - Atherosclerotic heart disease of [place] coronary artery without angina pectoris
[2024-12-30] MEDS: UMECLIDINIUM BROMIDE 62.5MCG/BLISTER 7 PUFFS/INHALER INH SCH (13:27)
[2024-12-30] MEDS: LANTUS PER UNIT CHARGE SC SCH (21:16)
[2024-12-31 07:42] LABS: Basophils # (auto) 0.01 K/uL (0.00-0.20); Basophils % (auto) 0.1 %; Eosinophils # (auto) 0.02 K/uL (0.00-0.50); Eosinophils % (auto) 0.3 %; Hematocrit (blood only) 36.9 % (42.0-52.0); Immature Granulocytes # (auto) 0.05 K/uL (0.01-0.20); Immature Granulocytes % (auto) 0.7 %; Lymphocytes # (auto) 0.75 K/uL (1.20-3.40); Lymphocytes % (auto) 9.9 %; Mean Corpuscular Hemoglobin 29.9 pg (25.0-34.0); Mean Corpuscular Hgb Conc 32.5 g/dL (32.0-36.0); Mean Corpuscular Volume 91.8 fL (80.0-100.0); Mean Platelet Volume 12.6 fL (9.4-12.4); Monocytes # (auto) 0.35 K/uL (0.11-0.59); Monocytes % (auto) 4.6 %; Neutrophils # (auto) 6.39 K/uL (1.40-6.50); Neutrophils % (auto) 84.4 %; Platelet Count 123 K/uL (130-400); RDW Coefficient of Variation 14.2 % (11.5-14.5); RDW Standard Deviation 48.3 fL (36.4-46.3); Red Blood Count 4.02 M/uL (4.70-6.10); White Blood Count 7.57 K/ul (4.8-10.8)
[2024-12-31 08:04] LABS: BUN Creatinine Ratio 36.3 (10-20); Calcium 8.9 mg/dl (8.6-10.3); Creatinine Clr Calc Pharmacy 64.8 ml/min; Magnesium 1.7 mg/dl (1.7-2.4); Potassium 4.3 mmol/L (3.5-5.1)
[2024-12-31 08:12] LABS: INR 1.7 (0.9-1.1); Prothrombin Time 17.9 Seconds (9.0-12.0)
[2024-12-31] MEDS: MAGNESIUM OXIDE 400 MG TAB PO SCH (09:49)
--- NOTE | 2024-12-31 11:44 | Pulmonology Progress Note ---
Date of Service December 31, 2024 Assessment & Plan (1) RSV (acute bronchiolitis due to respiratory syncytial virus): (2) Acute hypoxic respiratory failure: (3) Wheeze: (4) History of tobacco abuse: (5) Systolic CHF: Plan CT chest 12/28/2024 personally reviewed: Motion degraded study Minimal bilateral pleural effusion Subcarinal lymphadenopathy Patchy opacity in the right upper lobe perifissural No significant mediastinal lymphadenopathy 2D echo 12/29/2024: Mild concentric LVH, EF 25-30%, moderate to severe global hypokinesis, aortic valve sclerosis, RVSP 30-40 mmHg, mild to moderate MR, mild TR, LA moderately dilated --Acute hypoxic respiratory failure Secondary to RSV bronchiolitis leading to COPD exacerbation [id number] smoking history Respiratory BioFire positive for RSV on 12/28/2024 Procalcitonin 0.11 BNP 460 Not on any inhalers at home --Pulmonary hypertension Likely combination of type II and type III but I do think majority component is from type II --History of smoking [id number] smoking history Quit at the age of 59 Plan: Switch to prednisone 40 mg and can taper over 7 to 10 days as an outpatient, continue with nebulized long acting beta agonist and ICS while inpatient. Discharge home on high-dose LABA/ICS inhaler such as Symbicort 160/4.5, 2 puffs twice daily. Recommend PFT as an outpatient and pulmonary follow-up. Can be dismissed from the hospital tomorrow from a pulmonary perspective. Thank you for the consult. Pulmonary will sign off. Please call with questions. Admission and Anticipated Discharge Date Admission Date: December 29, 2024 Subjective Patient feeling significantly improved today and currently on room air. He is able to ambulate around his room without any difficulty. He denies any chest pain. Occasional dry cough. No fevers, chills or night sweats. No headache. He slept well last night. Review of Systems Review of Systems: All systems reviewed & are unremarkable except as noted in HPI & below Physical Exam Physical Exam: Constitutional: Patient appears to be of their stated age. Elderly and obese appearing male. Eyes: Pupils are equal round and reactive to light. Conjunctivae are normal. Anicteric sclera. Ears nose, mouth and throat: Mallampati class 2. Normal posterior oropharynx. Uvula is midline. Neck: Trachea is midline. Visual inspection is normal. Respiratory: Wheezing mostly resolved. Very minimal rhonchi. Mildly prolonged phase of exhalation. Cardiovascular: Regular rhythm. Tachycardic. No murmurs. No edema. Gastrointestinal: Normal bowel sounds, soft, nontender and nondistended. No hepatosplenomegaly noted. Musculoskeletal: No cyanosis. Patient is able to move all extremities. Strength is 5 out of 5 in the upper and lower extremities. Skin: No rashes, warm dry and intact. Neurologic: No obvious focal neurological deficits seen. Psychiatric: Alert and oriented x3 with a euthymic affect. Results & Data Results & Data Vital Signs (Past 12 Hours) Vital Signs Temp Pulse Pulse Resp BP Pulse Ox O2 Del Method 12/31/24 11:12 36.6 C 89 18 115/74 95 Room Air 12/31/24 08:02 36.7 C 82 18 106/71 96 Room Air 12/31/24 07:29 79 18 96 Room Air 12/31/24 02:47 36.6 C 80 18 112/73 93 Room Air 12/31/24 00:56 82 20 95 Room Air PG Care Time/CCT Total # of Minutes Spent Total Time Spent with Patient: Total time spent is greater than 50% in coordination of care (as documented) at patient's floor/unit and/or counseling patient: Coding Level of Care Code 94694 SUB INP/OBS CARE 2/35MIN Diagnoses RSV (acute bronchiolitis due to respiratory syncytial virus) J21.0 Acute hypoxic respiratory failure J96.01 Wheeze R06.2 History of tobacco abuse Z87.891 Systolic CHF I50.20
--- NOTE | 2024-12-31 14:10 | Hospitalist Progress Note ---
Date of Service December 31, 2024 Assessment & Plan (1) RSV (acute bronchiolitis due to respiratory syncytial virus): Plan: Acute hypoxic resp. failure -positive on biofire -procal negative, no leukocytosis however tachycardia and tachypnea with source concerning for overlying CAP Plan: -duoneb q6hrs scheduled and prn -flutter valve, incentive spirometry -gentle diuresis, see below -given extent of respiratory illness, started 5 day course of prednisone -start 5 day course of azithromycin and ceftriaxone 12/29 Pt is feeling better but still on suppl. O2 and w/ diffuse wheezing on phys. exam Then around lunchtime, breathing acutely worsened, wheezy, with chest discomfort Pt was transferred and pulmonary medicine was consulted 12/30 - 12/31 Pt is overall doing better, feels breathing is improved and he is on RA Likely will DC tmrw on Symbicort (2) Pulmonary edema: Plan: -noted on imaging -CT chest and chest xray consistent with pulmonary edema, however, appears intravascular dry, no elevated JVP -BNP elevated as well at 611 -has history of HFrEF (EF 40%), however this does not appear to be decompensated HF, just pulmonary edema, perhaps flash pulmonary edema vs. alveolar edema from RSV Plan: -light diuresis with 20 IV daily lasix -Echocardiogram obtained - mild concentric LVH, moderate to severe global hypokinesis of the LV, LV EF 25-30%, LA is moderately dilated, AV sclerosis moderate, without significant . mild to moderate mitral regurg. RV syst. pressure elevated at 30-40mm Hg (3) Sepsis: Plan: -tachycardic, tachypneic on admission , with a source -concern for overlying CAP, see above -lactic acid 1.8, blood cultures - negat. for 24 hrs (4) CAP (community acquired pneumonia): Plan: -see above -check sputum culture, blood cultures x2 (5) CAD (coronary artery disease): Plan: -noted (6) Apical mural thrombus: Plan: -INR supratherapeutic Plan: -held warfarin, now resumed (7) Myocardial injury: Plan: -likely in setting of RSV Leukopenia - likely secondary to current illness, cont. to monitor CBC WBC now improved - normalized at 7.5K Plan dvt ppx warfarin Admission and Anticipated Discharge Date Admission Date: December 29, 2024 Subjective Pt seen in follow up of hypoxic resp. failure, + RSV Says his was hospitalized for RSV Currently lying in bed in NAD, on RA, says his breathing is better no chest pain Overall reports feeling better Review of Systems Review of Systems: All systems reviewed & are unremarkable except as noted in Subjective Physical Exam Physical Exam: Gen: WD/WN M in NAD, on RA HEENT: NCAT, EOMI Neck: Supple Lungs: no wheezing, much improved CV: RRR, no edema. Abdomen: Soft, nondistended, No rebound tenderness. Skin: warm, dry Neuro: awake, alert, answers appropriately, moves extremities Psych: Appropriate for situation. Results & Data Results & Data Vital Signs (Past 12 Hours) Vital Signs Temp Pulse Resp BP Pulse Ox O2 Del Method 12/31/24 13:54 84 16 96 Room Air 12/31/24 11:12 36.6 C 89 18 115/74 95 Room Air 12/31/24 08:02 36.7 C 82 18 106/71 96 Room Air 12/31/24 07:29 79 18 96 Room Air 12/31/24 02:47 36.6 C 80 18 112/73 93 Room Air Laboratory Results 12/31/24 12/31/24 12/31/24 Range/Units 11:28 08:00 07:18 WBC 7.57 (4.8-10.8) K/ul RBC 4.02 L (4.70-6.10) M/uL Hgb 12.0 L (14.0-18.0) g/dl Hct 36.9 L (42.0-52.0) % MCV 91.8 (80.0-100.0) fL MCH 29.9 (25.0-34.0) pg MCHC 32.5 (32.0-36.0) g/dL RDW Std Deviation 48.3 H (36.4-46.3) fL RDW Coeff of [place] 14.2 (11.5-14.5) % Plt Count 123 L (130-400) K/uL MPV 12.6 H (9.4-12.4) fL Immature Gran % (Auto) 0.7 % Neut % (Auto) 84.4 % Lymph % (Auto) 9.9 % [place] % (Auto) 4.6 % Eos % (Auto) 0.3 % Baso % (Auto) 0.1 % Neut # (Auto) 6.39 (1.40-6.50) K/uL Lymph # (Auto) 0.75 L (1.20-3.40) K/uL [place] # (Auto) 0.35 (0.11-0.59) K/uL Eos # (Auto) 0.02 (0.00-0.50) K/uL Baso # (Auto) 0.01 (0.00-0.20) K/uL Immature Gran # (Auto) 0.05 (0.01-0.20) K/uL PT 17.9 H (9.0-12.0) Seconds INR 1.7 H (0.9-1.1) Sodium 136 (136-145) mmol/L Potassium 4.3 (3.5-5.1) mmol/L Chloride 101 (98-107) mmol/L Carbon Dioxide 28 (21-32) mmol/L Anion Gap 7 (3-11) BUN 37 H (6-23) mg/dl Creatinine 1.02 (0.6-1.4) mg/dl Est Cr Clr Drug Dosing 64.8 ml/min eGFR 75.70 BUN/Creatinine Ratio 36.3 H (10-20) Glucose 102 H (70-99(Fasting)) mg/dl POC Glucose 127 H 102 H (70-99) mg/dl Calcium 8.9 (8.6-10.3) mg/dl Magnesium 1.7 (1.7-2.4) mg/dl 12/30/24 12/30/24 Range/Units 20:52 16:58 WBC (4.8-10.8) K/ul RBC (4.70-6.10) M/uL Hgb (14.0-18.0) g/dl Hct (42.0-52.0) % MCV (80.0-100.0) fL MCH (25.0-34.0) pg MCHC (32.0-36.0) g/dL RDW Std Deviation (36.4-46.3) fL RDW Coeff of [place] (11.5-14.5) % Plt Count (130-400) K/uL MPV (9.4-12.4) fL Immature Gran % (Auto) % Neut % (Auto) % Lymph % (Auto) % [place] % (Auto) % Eos % (Auto) % Baso % (Auto) % Neut # (Auto) (1.40-6.50) K/uL Lymph # (Auto) (1.20-3.40) K/uL [place] # (Auto) (0.11-0.59) K/uL Eos # (Auto) (0.00-0.50) K/uL Baso # (Auto) (0.00-0.20) K/uL Immature Gran # (Auto) (0.01-0.20) K/uL PT (9.0-12.0) Seconds INR (0.9-1.1) Sodium (136-145) mmol/L Potassium (3.5-5.1) mmol/L Chloride (98-107) mmol/L Carbon Dioxide (21-32) mmol/L Anion Gap (3-11) BUN (6-23) mg/dl Creatinine (0.6-1.4) mg/dl Est Cr Clr Drug Dosing ml/min eGFR BUN/Creatinine Ratio (10-20) Glucose (70-99(Fasting)) mg/dl POC Glucose 352 H* 139 H (70-99) mg/dl Calcium (8.6-10.3) mg/dl Magnesium (1.7-2.4) mg/dl Medications Administered Current Inpatient Medications Acetaminophen (Acetaminophen 325 Mg Tab) 650 mg PO Q4H PRN PRN Reason: pain/fever Stop: 01/27/25 21:13 Albuterol (Albut/Ipratrop 3mg/0.5mg Neb 3 Ml Vial) 3 ml NEB Q6R SAIRA; Protocol Stop: 01/27/25 21:13 Last Admin: 12/31/24 13:54 Dose: 3 ml Albuterol (Albut/Ipratrop 3mg/0.5mg Neb 3 Ml Vial) 3 ml NEB Q2H PRN; Protocol PRN Reason: Shortness Of Breath Stop: 01/27/25 21:13 Atorvastatin Calcium (Atorvastatin 40 Mg Tab) 40 mg PO QAM [facility] Stop: 01/28/25 08:59 Last Admin: 12/31/24 08:14 Dose: 40 mg Budesonide (Budesonide 0.5 Mg/2 Ml Vial (Pulmicort)) 0.5 mg NEB BIDR [facility]IRA Stop: 01/28/25 18:59 Last Admin: 12/31/24 07:28 Dose: 0.5 mg Citalopram Hydrobromide (Citalopram 20 Mg Tab) 20 mg PO QAM [facility] Stop: 01/28/25 08:59 Last Admin: 12/31/24 08:14 Dose: 20 mg Clopidogrel Bisulfate (Clopidogrel Bisulfate 75 Mg Tab) [facility] [place] [place] Stop: 01/28/25 08:59 Last Admin: 12/31/24 08:14 Dose: 75 mg Dextrose (Dextrose 50% 50 Ml Syringe) 25 - 50 ml IV UD PRN; Protocol PRN Reason: Hypoglycemia Protocol Stop: 01/28/25 18:59 Doxycycline Hyclate (Doxycycline Hyclate 100 Mg Cap) 100 mg PO BID [facility] Stop: 01/02/25 21:59 Last Admin: 12/31/24 09:49 Dose: 100 mg Enalapril Maleate (Enalapril Maleate 5 Mg Tab) 2.5 mg PO BID [facility] Stop: 01/27/25 21:13 Last Admin: 12/31/24 08:13 Dose: 2.5 mg Fenofibrate (Fenofibrate Nanocrystallized 145 Mg Tablet) 145 [facility] [place] [place] Stop: 01/28/25 08:59 Last Admin: 12/31/24 08:13 Dose: 145 mg Formoterol Fumarate (Formoterol 20 Mcg/2 Ml Vial) 20 mcg NEB BIDR [facility] Stop: 01/28/25 18:59 Last Admin: 12/31/24 07:28 Dose: 20 mcg Glucagon (Glucagon For Inj 1 Mg Vial) 1 mg SQ UD PRN; Protocol PRN Reason: Hypoglycemia Protocol Stop: 01/28/25 18:59 Glucose (Glucose 40% Gel 15 Gm Tube) 15 - 30 gm PO UD PRN; Protocol PRN Reason: Hypoglycemia Protocol Stop: 01/28/25 18:59 Glucose (Glucose 10 Tab/Tube) 4 - 8 tab PO UD PRN; Protocol PRN Reason: Hypoglycemia Protocol Stop: 01/28/25 18:59 Guaifenesin (Guaifenesin 600 Mg Tabcr) 600 mg PO Q12 [facility] Stop: 01/28/25 15:14 Last Admin: 12/31/24 08:13 Dose: 600 mg Ceftriaxone Sodium (Rocephin) 2,000 mg in 50 mls @ 100 mls/hr IV Q24H [facility] Stop: 01/02/25 21:59 Last Infusion: 12/30/24 21:51 Dose: Infused Insulin Aspart (Insulin Aspart Per Unit Charge) 0 units SC ACHS [facility] Stop: 01/28/25 20:59 Last Admin: 12/31/24 12:15 Dose: 5 units Insulin Glargine (Lantus Per Unit Charge) 0 units SC BID [facility]; Protocol Stop: 01/29/25 20:59 Last Admin: 12/31/24 08:14 Dose: Not Given Levothyroxine Sodium (Levothyroxine Sodium 25 Mcg Tablet) 25 mcg PO DAILYBB [facility] Stop: 01/28/25 06:29 Last Admin: 12/31/24 06:19 Dose: 25 mcg Magnesium Oxide (Magnesium Oxide 400 Mg Tab) 400 mg PO BID [facility] Stop: 01/30/25 08:59 Last Admin: 12/31/24 09:49 Dose: 400 mg Melatonin (Melatonin 3 Mg Tab) 3 mg PO HS PRN PRN Reason: Insomnia Stop: 01/27/25 21:13 Menthol (Cough Drop (Sugar Free) Martina 24 Martina/1 Box) 1 martina BUCCAL NOW PRN PRN Reason: Sore Throat Stop: 01/28/25 05:42 Metoprolol Succinate (Metoprolol Succ 50mg Ext Rel Tab) 50 mg PO QAM [facility] Stop: 01/28/25 08:59 Last Admin: 12/31/24 08:14 Dose: 50 mg Miscellaneous (Carbohydrates For Hypoglycemia ) 15 - 30 gm PO UD PRN PRN Reason: Hypoglycemia Treatment Stop: 01/28/25 18:59 Miscellaneous Information (Pharmacy Glycemic Mgmt Consult) 1 each N/A UD PRN; Protocol PRN Reason: Consult Stop: 01/28/25 18:09 Pantoprazole Sodium (Pantoprazole 40 Mg Tab) 40 mg PO QAM [facility] Stop: 01/28/25 08:59 Last Admin: 12/31/24 08:14 Dose: 40 mg Polyethylene Glycol (Polyethylene (Miralax) 17 Gm Pack) 17 gm PO DAILY PRN PRN Reason: Constipation Stop: 01/27/25 21:13 Prednisone (Prednisone 20 Mg Tab) 40 mg PO DAILY [facility] Stop: 01/31/25 08:59 Trazodone HCl (Trazodone Hcl 50 Mg Tab) 50 mg PO HS PRN PRN Reason: Sleep Stop: 01/27/25 21:13 Umeclidinium [place] (Umeclidinium [place] 62.5mcg/Blister 7 Puffs/Inhaler) 1 puffs INH DAILY [facility] Stop: 01/29/25 12:29 Last Admin: 12/31/24 08:15 Dose: 1 puffs Warfarin Sodium (Warfarin Sod 3 Mg Tab) 3 mg PO DAILY@1600 [facility] Stop: 01/28/25 15:59 (2) Pulmonary edema Chronicity: acute Qualified Code(s): J81.0 - Acute pulmonary edema (3) Sepsis Sepsis type: sepsis due to unspecified organism Sepsis acute organ dysfunction status: without acute organ dysfunction Qualified Code(s): A41.9 - Sepsis, unspecified organism (4) CAP (community acquired pneumonia) Laterality: unspecified laterality Qualified Code(s): J18.9 - Pneumonia, unspecified organism (5) CAD (coronary artery disease) Coronary Disease-Associated Artery/Lesion type: [place] artery [place] vs. transplanted heart: [place] heart Associated angina: without angina Qualified Code(s): I25.10 - Atherosclerotic heart disease of [place] coronary artery without angina pectoris
--- NOTE | 2024-12-31 14:15 | Pharmacy Report ---
Pharmacy Glycemic Short Note 2 - Date of Service December 31, 2024 - Glycemic Short BSG Results (Last 24 hours): 12/30/24 12/30/24 12/31/24 16:58 20:52 07:18 Glucose 102 H POC Glucose 139 H 352 H* 12/31/24 12/31/24 08:00 11:28 Glucose POC Glucose 102 H 127 H OUTPATIENT ANTIDIABETIC REGIMEN: * Semaglutide 0.25 mg SC weekly - Mondays * A1c pending ASSESSMENT: 12/31: * Juanito received 51 units of insulin yesterday (20 units basal + 31 units bolus) and has demonstrated improved glycemic control. * Fasting BSG 102 mg/dL and IV steroids have been discontinued, therefore I will discontinue Lantus. * Novolog parameters were loosened yesterday. Will continue current parameters per patient will be starting prednisone 40 mg daily tomorrow. Can consider once daily weight based NPH at that time. 12/29: * Juanito is a 79 yo T2DM admitted with acute hypoxic respiratory failure likely secondary to systolic heart failure and RSV infection. * Started on high dose IV steroids (Methylpred 60 mg IV x 1, then methylpred 40 mg IV BID). * Unknown level of outpatient DM control. A1c pending. Anticipate need of both basal + bolus SQ insulin to combat steroid induced hyperglycemia. PLAN FOR INPATIENT GLYCEMIC CONTROL: * Basal insulin * d/c Lantus * Bolus insulin * NovoLog per scale ACHS or Q6hrs while NPO * Goal Range: Low 110 mg/dL - High 140 mg/dL * Correction Factor: 25 mg/dL/unit * Nutritional / Prandial insulin per carb ratio of 1 unit per 9 grams CHO consumed
[2024-12-31] MEDS: WARFARIN SOD 3 MG TAB PO SCH (17:17)
[2024-12-31] MEDS: traZODone HCL 50 MG TAB PO PRN (21:26)
[2025-01-01 06:22] LABS: Basophils # (auto) 0.02 K/uL (0.00-0.20); Basophils % (auto) 0.4 %; Eosinophils # (auto) 0.03 K/uL (0.00-0.50); Eosinophils % (auto) 0.5 %; Immature Granulocytes # (auto) 0.05 K/uL (0.01-0.20); Immature Granulocytes % (auto) 0.9 %; Lymphocytes # (auto) 1.29 K/uL (1.20-3.40); Lymphocytes % (auto) 23.4 %; Mean Corpuscular Hemoglobin 30.5 pg (25.0-34.0); Mean Corpuscular Hgb Conc 33.3 g/dL (32.0-36.0); Mean Corpuscular Volume 91.4 fL (80.0-100.0); Mean Platelet Volume 12.5 fL (9.4-12.4); Monocytes # (auto) 0.52 K/uL (0.11-0.59); Monocytes % (auto) 9.4 %; Neutrophils % (auto) 65.4 %; Platelet Count 118 K/uL (130-400); RDW Standard Deviation 47.2 fL (36.4-46.3); Red Blood Count 3.94 M/uL (4.70-6.10); White Blood Count 5.51 K/ul (4.8-10.8)
[2025-01-01 06:47] LABS: BUN Creatinine Ratio 27.7 (10-20); Calcium 8.9 mg/dl (8.6-10.3); Creatinine Clr Calc Pharmacy 50.8 ml/min; Potassium 4.4 mmol/L (3.5-5.1)
[2025-01-01 06:54] LABS: INR 1.5 (0.9-1.1); Prothrombin Time 16.1 Seconds (9.0-12.0)
[2025-01-01 08:00] VITALS: BP 101/68; TEMP 98.2
[2025-01-01] MEDS: predniSONE 20 MG TAB PO SCH (08:54)
[2025-01-01] MEDS: LANTUS PER UNIT CHARGE SC SCH (09:06)
--- NOTE | 2025-01-01 09:47 | Discharge Summary ---
Date of Service January 01, 2025 Admission HPI Per Admitting Provider 77-year-old male with past medical history significant for CAD, type 2 diabetes, hypothyroidism, hyperlipidemia, polyneuropathy, history of CVA, hypertension, history of cirrhosis of liver, irritable bowel syndrome with both constipation and diarrhea, B12 deficiency, acquired cyst of kidney, BPH, cervical spondylosis, depression, primary insomnia who presents for SOB. Has a at home for the past 3 weeks who has been admitted with RSV, and for the past 2 weeks has been feeling SOB and having a worsening cough. It has gotten progressively worse so he felt he had to come in. He states that he has been having issues walking because of the shortness of breath. Otherwise, he states that he has had a productive cough for past 2 weeks as well. No tobacco use, no alcohol use, no drug use, full code. Admission Exam Per Admitting Provider Gen: A&O 3 appears uncomfortable HEENT: NCAT, EOMI, not icteric. External ears normal. No rhinorrhea. Moist mucous membranes. Neck: Supple, full range of motion, no observable masses, No meningeal sign. Lungs: ronchi, wheezing bilaterally CV: RRR, no edema. Abdomen: Soft, nondistended, No rebound tenderness. MSK: No joint swelling, no redness. Skin: No rashes, petechiae, lesions. Normal color per patient. Neuro: Normal Gait, Grossly intact. Psych: Appropriate for situation. Principal Diagnosis Acute hypoxic resp. failure secondary to RSV Discharge Exam Gen: WD/WN M in NAD, on RA HEENT: NCAT, EOMI Neck: Supple Lungs: no wheezing, much improved CV: RRR, no edema. Abdomen: Soft, nondistended, No rebound tenderness. Skin: warm, dry Neuro: awake, alert, answers appropriately, moves extremities Psych: Appropriate for situation. Discharge Data Allergies Allergy/AdvReac Type Severity Reaction Status Date / Time niacin Allergy Unknown ITCHY Verified 10/08/23 08:55 SPLOTCHY RASH Consultations 12/28/24 17:06 ED Decision to Admit Stat 12/29/24 15:05 Consult Pulmonology Routine Ordered Studies 12/28/24 17:44 CT angio chest PE protocol Stat FINDINGS: Pulmonary arteries: No abnormality noted. No pulmonary embolism. Aorta: Atherosclerotic aorta. Enhancement is not optimized to detect dissection. There is no inward displacement of intimal calcification to suggest dissection. Lungs and pleural spaces: Very small bilateral layering pleural effusions. Respiratory motion limits assessment of the pulmonary parenchyma. There is minimal dependent atelectasis in the lower and right upper lobes. There is poorly evaluated diffuse airway thickening. No bronchiectasis. There is generalized septal thickening. Heart: Cardiomegaly. No evidence of right heart strain or pericardial effusion. Coronary bypass change noted. Bones/joints: No acute or atypical chronic changes. Soft tissues: No abnormality noted. Lymph nodes: Shotty and mildly enlarged nodes present in the lateral aortic, pretracheal, subcarinal and bilateral hilar compartments measuring up to 2.3 cm short axis dimension. Liver: Cirrhotic liver. No visible mass. No ductal dilatation. IMPRESSION: 1. Suboptimal assessment due to respiratory motion. 2. No pulmonary embolus noted. 3. Suboptimally assessed pulmonary parenchyma with findings most concerning for CHF. Acute and/or chronic infectious bronchitis also considered. 4. Cirrhosis. Hospital Course (1) RSV (acute bronchiolitis due to respiratory syncytial virus): Acute hypoxic resp. failure -positive on biofire -procal negative, no leukocytosis however tachycardia and tachypnea with source concerning for overlying CAP Plan: -duoneb q6hrs scheduled and prn -flutter valve, incentive spirometry -gentle diuresis, see below -given extent of respiratory illness, started 5 day course of prednisone -start 5 day course of azithromycin and ceftriaxone 12/29 Pt is feeling better but still on suppl. O2 and w/ diffuse wheezing on phys. exam Then around lunchtime, breathing acutely worsened, wheezy, with chest discomfort Pt was transferred and pulmonary medicine was consulted 12/30 - 12/31 Pt is overall doing better, feels breathing is improved and he is on RA As per pulmonary medicine - will discharge on Symbicort, prednisone. Pt will need pulmonary follow up and PFTs as outpt. (2) Pulmonary edema: -noted on imaging -CT chest and chest xray consistent with pulmonary edema, however, appears intravascular dry, no elevated JVP -BNP elevated as well at 611 -has history of HFrEF (EF 40%), however this does not appear to be decompensated HF, just pulmonary edema, perhaps flash pulmonary edema vs. alveolar edema from RSV Plan: -light diuresis while inpt -Echocardiogram obtained - mild concentric LVH, moderate to severe global hypokinesis of the LV, LV EF 25-30%, LA is moderately dilated, AV sclerosis moderate, without significant . mild to moderate mitral regurg. RV syst. pressure elevated at 30-40mm Hg - follow up w/pcp and outpt cardiology (3) Sepsis: -tachycardic, tachypneic on admission , with a source -concern for overlying CAP, see above -lactic acid 1.8, blood cultures - negat. for 48 hrs (4) CAP (community acquired pneumonia): -see above -check sputum culture, blood cultures x2 (5) CAD (coronary artery disease): -noted (6) Apical mural thrombus: -INR supratherapeutic Plan: -held warfarin, now resumed (7) Myocardial injury: -likely in setting of RSV Leukopenia - likely secondary to current illness, cont. to monitor CBC WBC then improved 7.5K, pt also on steroids - follow up w/pcp to ensure that normalized Plan dvt ppx warfarin Total Time Total Time Spent Total Time Spent (In Minutes): 40 Discharge Plan Discharge Items Patient Disposition: Home - Self-Care Reason For Visit: RHINOVIRUS Discharge Diagnosis: Acute hypoxic resp. failure secondary to RSV Activity: Per Instructions section Non-emergency contact: Primary Care Provider and [employer] Call non-emergency contact if: you have any medication questions and your symptoms worsen Follow-up/Referrals: Neo Han MD [Primary Care Provider] - (Date & Time 01/09/2025 2:20 PM Provider: Neo Han MD Family Medicine [facility] ) Diet: Carb Consistent or DM2 Addtl Attending Provider Instructions: Follow up with your primary care doctor and physical security specialist. The appointment with your primary care doctor was scheduled for you for 01/09/2025. Use inhaler - Symbicort as prescribed - 2 puffs twice a day, in addition to your other home medications. Finish prednisone taper as prescribed - take 2 tabs (40 mg) for next 3 days, then take 1 tab (20 mg) for 4 days. Finish antibiotic course as prescribed. You will also need to follow up with a pulmonary doctor and have pulmonary tests done. Pending Studies at Discharge: Yes Studies:: final blood cultx results Stand-Alone Forms: My [employer], Smoking Cessation Medications and DC Order Prescriptions: New budesonide-formoterol [Symbicort] 160-4.5 mcg/actuation HFA aerosol inhaler 2 puff inhalation BID Qty: 10.2 0RF guaifenesin [Mucinex] 600 mg Tablet Extended Release 12hr 600 mg PO Q12 Qty: 14 0RF prednisone 20 mg tablet 20 mg PO UD Qty: 10 0RF Rx Instructions: Take 2 tabs for next 3 days, then take 1 tab for 4 days doxycycline hyclate 100 mg Capsule 100 mg PO BID Qty: 3 0RF magnesium oxide 400 mg (241.3 mg magnesium) Tablet 400 mg PO DAILY Qty: 5 0RF cefuroxime axetil 500 mg tablet 500 mg PO BID Qty: 2 0RF Continued atorvastatin [Lipitor] 40 mg tablet 40 mg PO QAM citalopram [Celexa] 40 mg tablet 40 mg PO QAM enalapril maleate [Vasotec] 2.5 mg tablet 2.5 mg PO BID levothyroxine 25 mcg capsule 25 mcg PO QAM trazodone 50 mg tablet 50 mg PO HS PRN (Reason: Sleep) docusate sodium 100 mg capsule 100 mg PO BID PRN (Reason: Constipation) Rx Instructions: otc unable to verify cyanocobalamin (vitamin B-12) 1,000 mcg Tablet 1,000 mcg PO DAILY Rx Instructions: otc unable to verify sildenafil [Viagra] 100 mg Tablet 100 mg PO UD PRN (Reason: Erectile Dysfunction) fenofibrate micronized 134 mg capsule 134 mg PO QAM Ozempic 0.25 mg or 0.5 mg(2 mg/1.5 mL) pen injector 0.25 mg SUBCUT Q7D Patient Comments: mondays pantoprazole 40 mg Tablet,Delayed Release (Dr/Ec) 40 mg PO QAM Qty: 30 0RF acetaminophen 325 mg Tablet 650 mg PO Q6H PRN (Reason: fever or pain) Qty: 60 0RF Rx Instructions: otc unable to verify psyllium husk [Fiber (psyllium husk)] 0.4 gram Capsule 0.4 g PO DAILY Qty: 30 0RF Rx Instructions: otc unable to verify albuterol sulfate 90 mcg/actuation HFA aerosol inhaler 2 puff INHALATION Q6H PRN (Reason: sob/wheezing) metoprolol succinate 50 mg tablet extended release 24 hr 50 mg PO DAILY ondansetron HCl 4 mg tablet 4 mg PO Q8H PRN (Reason: Nausea And Vomiting) warfarin 3 mg tablet 1 - 2 mg PO UD Rx Instructions: as directed by [facility] Held prednisone 10 mg tablet 10 mg PO UD Hold Instructions: Resume on 01/08/25. resume after you finish prednisone taper Rx Instructions: 5 tabs for 2 days, 4 tabs for 2 days, 3 tabs for 2 days, 2 tabs for 2 days, 1 tab for 2 days Discontinued azithromycin 250 mg tablet 250 mg PO DIRECTED Rx Instructions: 2 tabs po on first day; 1 tab po daily until gone amoxicillin-pot clavulanate 875-125 mg tablet 1 tab PO BID Discharge Orders: Discharge Order (Routine); Ordered 01/01/25 Ordered By: Jesse Silver Admission Data Admit Date/Time: 12/29/24 13:59 Attending Provider: Jesse Silver Admit Provider: Cornell Matta Primary Care Provider: Neo Han Other Providers: Cornell Matta; Michael Bronson
[2025-01-01 12:30] VITALS: PULSE 92; RESP 14; O2SAT 95
[2025-01-01] MEDS: COUGH DROP (SUGAR FREE) LOZ 24 LOZ/1 BOX BUCCAL PRN (15:10)
== END 2025-01-01 15:22 | disposition home or self-care (01) | DRG 871 ==
LOC: 3E 14:39 → ED 14:39 → SUATTDRO 17:32 → 3E 21:01 → 4W 12-29 15:19

== ENCOUNTER 2025-01-24 14:09 | Inpatient (IN) ==
--- NOTE | 2025-01-24 14:52 | XRay Report ---
XR chest 1V portable CLINICAL HISTORY: Chest pain, nonspecific COMPARISON STUDY: 12/29/2024 FINDINGS: Single view portable chest unchanged demonstrating evidence of prior coronary artery bypass surgery and chronic cardiomegaly with left ventricular prominence and associated pulmonary vascular congestion. There is no focal airspace opacity, pneumothorax, or significant pleural effusion. IMPRESSION: Stable exam; chronic cardiomegaly and pulmonary vascular congestion in a patient has had prior coronary artery bypass surgery and a left shoulder joint replacement. ACT 112: Negative or not required by law. Electronically signed by: Rosie Dela Cruz M.D. 01/24/2025 2:50 PM
--- NOTE | 2025-01-24 15:04 | Emergency Department Note ---
Impression & Plan Acute exacerbation of CHF (congestive heart failure), Chest pain, MARC (dyspnea on exertion), History of coronary artery disease ED Provider Note NAME: ELENA UP AGE: 79 SEX: M : 1945 ARRIVES VIA: Walk-In INFORMANT: Patient, ED PROVIDER(S): Hosea Salmon MD CHIEF COMPLAINT: Chest pain, shortness of breath MEDICAL DECISION MAKING: Patient presents with the above. IV was established and blood work was obtained. EKG with likely sinus with PVCs and fusion complexes. Patient was advised to stay in bed as he is significantly dyspneic. Most recent echo did show worsening heart function with an EF of 25 to 30%. Reviewed the patient's medication list the patient does not take any Lasix. The patient was feeling as though he could not tolerate the BiPAP so he was ordered IV Ativan 0.25 mg. The patient's blood work shows a normal white count hemoglobin 11.6 chronic and stable. Patient's platelet count is unremarkable. Kidney function unremarkable currently therapeutic with an INR of 2.9. Mag slightly low at 1.4. Patient's troponin of 39. Has been around that level in the past. Patient's BNP was 1090. Believe the patient is suffering from failure. I did speak with the on-call hospitalist service the patient was tolerating the BiPAP. Patient was admitted to the medicine service. Critical Care: I have personally spent 47 minutes of critical care time in direct management of this patient. This includes bedside care, interpretation of diagnostic studies, and testing, discussion with consultants, patient, and family members, and other require inpatient management activities. This 47 minutes is in excess of all separately billable procedures. Discussion w/ other healthcare providers: Purvi Moody PA-C and Dr. Dowling inpatient medicine service Prior /Outside records reviewed: I reviewed part of the discharge summary from Dr. Silver January 01 patient was admitted for shortness of breath and diagnosed with hypoxemic respiratory failure secondary to RSV. Patient with history of heart failure with reduced ejection fraction. Found to have alveolar edema or pulmonary edema but likely from RSV. Patient to be on Coumadin. Of note patient's echocardiogram from December 20 did not show any evidence of apical thrombus. Patient's EF at that time as well noted to be 25 to 30%. Differential diagnosis: Reactive airway disease, pneumonia, pneumothorax, COPD, CHF, ACS, pulmonary embolism, musculoskeletal, GERD as well as other pathologies were considered. Diagnostics, as interpreted by me: ECG: Likely sinus with PVCs and fusion complexes. Ventricular rate of 121 with wide QRS, left branch block pattern.EKG looks grossly unchanged from comparison Cardiac monitoring: An order was placed for continuous cardiac monitoring. The monitor shows a rate of 112 with tachycardic and regular rhythm. Patient was placed on pulse oximetry Medical decision rules: None Imaging studies: I informally interpreted the patient's chest x-ray shows cardiomegaly with formal report to follow. HPI: Patient presents due to concern for shortness of breath and chest pain. Shortness of breath began over the weekend and has gotten progressively worse. The patient states that he cannot walk very far without getting very winded. Patient does have orthopnea. Patient states that he has been compliant with his medications. He reports he had a recent admission last month at which point he they were not sure if he was having heart issues or lung issues or both. The patient states that he was seen Yolanda Bunch yesterday for some pulmonary function testing but does not have a follow-up cardiology until February 05 he does not believe that he can wait this long. Patient states that he did take his morning medications. He does have some associated left-sided chest pain not sure if it radiates although the initial nursing note reported may be to his left arm. Patient denies any nausea vomiting or diaphoresis. PAST MEDICAL HISTORY: See Below PAST SURGICAL HISTORY: See Below SOCIAL HISTORY: See Below HOME MEDICATIONS: See Below ALLERGIES: See Below VITALS: See Below PHYSICAL EXAMINATION: GENERAL: NAD, non-toxic mild distress, dyspneic EYE EXAM: Normal conjunctiva. PERRL, no anisocoria and EOM's grossly intact w/o pain. OROPHARYNX: Moist mucus membranes, grossly normal dentition. NECK: Trachea midline, no stridor. Supple, no nuchal rigidity, no adenopathy, non-tender. No signs of meningismus. FROM of the neck with good chin to chest and neck extension. LUNGS: Decreased breath sounds at the bases, dyspnea noted. HEART: NSR, no MRG. ABDOMEN: Abdomen soft, non-tender, no masses, no rebound or guarding. BACK: No CVA TTP. SKIN: No rashes and no bruising. UPPER EXTREMITIES: Upper extremities are grossly normal. LOWER EXTREMITIES: Grossly normal, trace pretibial edema without calf pain or erythema. NEURO EXAM: A&O x3, cranial nerves II-XII grossly intact, normal speech, moves all 4 extremities. Past Med/Surg History Problem List History of coronary artery disease (Acute) MARC (dyspnea on exertion) (Acute) Chest pain (Acute) Acute exacerbation of CHF (congestive heart failure) (Acute) Hypomagnesemia Heart failure, systolic, with acute decompensation Systolic CHF History of tobacco abuse Wheeze Acute hypoxic respiratory failure CAP (community acquired pneumonia) Sepsis Pulmonary edema Myocardial injury RSV (acute bronchiolitis due to respiratory syncytial virus) Acute bronchospasm (Acute) Elevated troponin (Acute) Ischemic cardiomyopathy Non-ST elevation (NSTEMI) myocardial infarction Lab test negative for COVID-19 virus (Acute) Apical mural thrombus (Acute) Chest pain (Acute) Diverticulitis (Acute) Shoulder pain Carpal tunnel syndrome, left Cervical radiculopathy at C8 Chronic back pain HTN (hypertension) Lumbar radicular pain "off and on" CAD (coronary artery disease) 1994-CABG x2 2004-MAYLIN to circumflex 12/2022-MAYLIN @[place] Diabetes weekly injection 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 ongoing H/O heart artery stent (Acute) 2004, [facility], x1 stent 12/2022, [facility], x1 stent; f/u [facility] cardio Medical History COPD (chronic obstructive pulmonary disease) Hyperlipidemia Cirrhosis of liver currently stable, f/u specialist at [facility] gw Hx of myocardial infarction 2004, taken to [facility] for double bypass; f/u [facility] cardio GERD (gastroesophageal reflux disease) Hypothyroidism Hx of long-term (current) use of anticoagulants eliquis and clopidogrel Cervical disc disorder at C5-C6 level with radiculopathy Lumbar back pain with radiculopathy affecting left lower extremity "off and on" Foraminal stenosis of lumbar region L5-S1 DDD (degenerative disc disease), lumbar Rupture of hip abductor tendon no sx Surgical History History of esophagogastroduodenoscopy (EGD) Hx of colonoscopy Hx of tonsillectomy Hx of cardiac cath 2004, [facility], x[facility] stent 04/2023, having normal checkup w/echo and saw blood clot in the left ventricle, [facility], x1 stent; f/u [facility] cardio S/P hernia surgery abdominal hernia operations x3 H/O heart bypass surgery 1994, double bypass, [facility]; f/u [facility] cardio H/O shoulder replacement left H/O laminectomy ~age 67 Family History Other Diabetes Heart disease Social History Smoking Status: Never smoker Tobacco Type: Cigarettes Cigarettes Per Day: 2 packs; quit 20 yrs ago; Second Hand Exposure: No; Do You Dip or Chew Tobacco: No; Hx Alcohol Use: Yes Alcohol type: beer Hx Substance Use: No Preferred Language: Serbian Communication Ability: Effective Hotel Service Manager Required: No Beliefs That Will Affect Care: None marital status: Current Living Situation: Spouse current occupational status: retired How many Children do You have: 2 Feels Safe at Home: Yes Assistive Devices: Hearing Aid - Bilateral Allergies Allergies Allergy/AdvReac Type Severity Reaction Status Date / Time niacin Allergy Unknown ITCHY Verified 10/08/23 08:55 SPLOTCHY RASH Home Meds Home Medications Medication Instructions Recorded Confirmed atorvastatin 40 mg tablet (Lipitor) 40 mg PO UD 12/18/20 01/24/25 citalopram 40 mg tablet (Celexa) 40 mg PO QAM 12/18/20 01/24/25 enalapril maleate 2.5 mg tablet 2.5 mg PO UD 12/18/20 01/24/25 (Vasotec) levothyroxine 25 mcg capsule 25 mcg PO QAM 12/18/20 01/24/25 cyanocobalamin (vitamin B-12) 1,000 mcg PO DAILY 09/23/21 01/24/25 1,000 mcg tablet fenofibrate micronized 134 mg 134 mg PO QAM 09/23/21 01/24/25 capsule sildenafil 100 mg tablet (Viagra) 100 mg PO UD PRN Erectile 09/23/21 01/24/25 Dysfunction docusate sodium 100 mg capsule 100 mg PO BID PRN Constipation 12/31/22 01/24/25 trazodone 50 mg tablet 50 mg PO HS PRN Sleep 12/31/22 01/24/25 albuterol sulfate 90 mcg/actuation 2 puff inhalation Q6H PRN 12/28/24 01/24/25 aerosol inhaler sob/wheezing metoprolol succinate 50 mg 25 mg PO DAILY 12/28/24 01/24/25 tablet,extended release 24 hr ondansetron HCl 4 mg tablet 4 mg PO Q8H PRN Nausea And Vomiting 12/28/24 01/24/25 prednisone 10 mg tablet 10 mg PO UD 12/28/24 01/24/25 warfarin 3 mg tablet 1 - 2 mg PO UD 12/28/24 01/24/25 budesonide-formoterol HFA 160 2 puff inhalation UD 01/24/25 01/24/25 mcg-4.5 mcg/actuation aerosol inhaler (Symbicort) semaglutide 0.25 mg or 0.5 mg (2 0.5 mg subcut WK 01/24/25 01/24/25 mg/3 mL) subcutaneous pen injector (Ozempic) Previous Rx's Medication Instructions Recorded pantoprazole 40 mg tablet,delayed 40 mg PO QAM #30 tabs 09/24/21 release acetaminophen 325 mg tablet 650 mg (2 x 325 mg) PO Q6H PRN 01/12/22 fever or pain #60 tabs psyllium husk 0.4 gram capsule 0.4 g PO DAILY #30 caps 01/12/22 (Fiber (psyllium husk)) guaifenesin 600 mg tablet, 600 mg PO Q12 #14 tabs 01/01/25 extended release 12 hr (Mucinex) magnesium oxide 400 mg (241.3 mg 400 mg PO DAILY #5 tabs 01/01/25 magnesium) tablet Results & Data (ED) Vital Signs Vital Signs - 24 hr 01/24/25 14:11 01/24/25 14:14 01/24/25 14:21 Temperature 35.9 C L Temperature Source Temporal Artery Scan Pulse Rate 107 H 109 H Pulse Rate [Apical] Respiratory Rate 20 18 Respiratory Effort / Characteristics Respiratory Depth Normal Respiratory Pattern Regular Blood Pressure 145/80 H Blood Pressure [Left Arm] Blood Pressure Mean 101 Blood Pressure Mean [Left Arm] Blood Pressure Position Sitting Pulse Oximetry 95 91 Oxygen Delivery Method Room Air Room Air Room Air Fraction of Inspired Oxygen Sepsis Recent Fever Within 48 Hours No Sepsis New/Unexplained Change in Mental Status No Sepsis Action Taken by Nursing No Action Required 01/24/25 14:25 01/24/25 14:34 01/24/25 15:01 Temperature Temperature Source Pulse Rate 112 H Pulse Rate [Apical] 114 H 107 H Respiratory Rate 26 H 22 Respiratory Effort / Characteristics Respiratory Depth Respiratory Pattern Blood Pressure Blood Pressure [Left Arm] 126/86 126/92 Blood Pressure Mean Blood Pressure Mean [Left Arm] 99 103 Blood Pressure Position Pulse Oximetry 93 94 Oxygen Delivery Method Room Air Room Air Fraction of Inspired Oxygen Sepsis Recent Fever Within 48 Hours Sepsis New/Unexplained Change in Mental Status Sepsis Action Taken by Nursing 01/24/25 16:11 Temperature Temperature Source Pulse Rate 106 H Pulse Rate [Apical] Respiratory Rate 20 Respiratory Effort / Characteristics Non-Labored Spontaneous Respiratory Depth Normal Respiratory Pattern Regular Blood Pressure Blood Pressure [Left Arm] Blood Pressure Mean Blood Pressure Mean [Left Arm] Blood Pressure Position Pulse Oximetry 96 Oxygen Delivery Method Fraction of Inspired Oxygen 24 Sepsis Recent Fever Within 48 Hours Sepsis New/Unexplained Change in Mental Status Sepsis Action Taken by Longterm Medications Current Medication List: was personally reviewed by me Laboratory Data Attestation: I reviewed the patient's lab results. 01/24/25 15:05 01/24/25 15:05 Lab Results 01/24/25 01/24/25 Range/Units 15:05 17:36 WBC 5.17 (4.8-10.8) K/ul RBC 3.88 L (4.70-6.10) M/uL Hgb 11.6 L (14.0-18.0) g/dl Hct 34.6 L (42.0-52.0) % MCV 89.2 (80.0-100.0) fL MCH 29.9 (25.0-34.0) pg MCHC 33.5 (32.0-36.0) g/dL RDW Std Deviation 45.7 (36.4-46.3) fL RDW Coeff of Guera 14.2 (11.5-14.5) % Plt Count 157 (130-400) K/uL MPV 12.1 (9.4-12.4) fL Immature Gran % (Auto) 0.6 % Neut % (Auto) 72.4 % Lymph % (Auto) 16.8 % [place] % (Auto) 7.5 % Eos % (Auto) 1.7 % Baso % (Auto) 1.0 % Neut # (Auto) 3.74 (1.40-6.50) K/uL Lymph # (Auto) 0.87 L (1.20-3.40) K/uL [place] # (Auto) 0.39 (0.11-0.59) K/uL Eos # (Auto) 0.09 (0.00-0.50) K/uL Baso # (Auto) 0.05 (0.00-0.20) K/uL Immature Gran # (Auto) 0.03 (0.01-0.20) K/uL PT 28.4 H (9.0-12.0) Seconds INR 2.9 H (0.9-1.1) APTT 48 H (21-31) Seconds PTT Ratio 1.8 Sodium 139 (136-145) mmol/L Potassium 3.9 (3.5-5.1) mmol/L Chloride 107 (98-107) mmol/L Carbon Dioxide 22 (21-32) mmol/L Anion Gap 10 (3-11) BUN 21 (6-23) mg/dl Creatinine 1.04 (0.6-1.4) mg/dl Est Cr Clr Drug Dosing 63.6 ml/min eGFR 73.95 BUN/Creatinine Ratio 20.2 H (10-20) Glucose 137 H (70-99(Fasting)) mg/dl Calcium 8.9 (8.6-10.3) mg/dl Magnesium 1.4 L (1.7-2.4) mg/dl Total Bilirubin 0.8 (0.2-1.0) mg/dl AST 12 L (13-39) U/L ALT 8 (7-52) U/L Alkaline Phosphatase 51 (34-104) U/L Troponin I High Sens 39.0 H (0-20) pg/ml B-Natriuretic Peptide 1090 H (0-100) pg/ml Total Protein 6.8 (6.0-8.3) gm/dl Albumin 4.2 (3.4-5.0) gm/dl Globulin 2.6 (2.5-4.0) gm/dl Albumin/Globulin Ratio 1.6 (0.9-2) Lipase 32 (11-82) U/L SARS-CoV-2 (PCR) Cancelled Influenza A (RT-PCR) Cancelled Influenza B (RT-PCR) Cancelled RSV (RT-PCR) Cancelled Administered Medications Magnesium Sulfate/Dextrose (Magnesium Sulfate / D5w) 1 gm in 100 mls @ 50 mls/hr IV Q2H SAIRA Stop: 01/24/25 21:14 Last Admin: 01/24/25 18:02 Dose: 50 mls/hr Documented By: OPAL Discontinued Medications Furosemide (Furosemide Inj 20 Mg/2 Ml Vial) 20 mg IV ONE ONE Stop: 01/24/25 15:59 Last Admin: 01/24/25 16:29 Dose: 20 mg Documented By: OPAL Furosemide (Furosemide Inj 20 Mg/2 Ml Vial) 20 mg IV ONE ONE Stop: 01/24/25 17:19 Last Admin: 01/24/25 18:01 Dose: 20 mg Documented By: OPAL Lorazepam (Lorazepam 2 Mg/1 Ml Vial) 0.25 mg IV NOW STA Stop: 01/24/25 16:06 Last Admin: 01/24/25 16:29 Dose: 0.25 mg Documented By: OPAL Imaging Data Radiologist's Impression: Chest X-Ray 01/24/25 14:18 XR chest 1V portable CLINICAL HISTORY: Chest pain, nonspecific COMPARISON STUDY: 12/29/2024 FINDINGS: Single view portable chest unchanged demonstrating evidence of prior coronary artery bypass surgery and chronic cardiomegaly with left ventricular prominence and associated pulmonary vascular congestion. There is no focal airspace opacity, pneumothorax, or significant pleural effusion. IMPRESSION: Stable exam; chronic cardiomegaly and pulmonary vascular congestion in a patient has had prior coronary artery bypass surgery and a left shoulder joint replacement. ACT 112: Negative or not required by law. Electronically signed by: Rosie Dela Cruz M.D. 01/24/2025 2:50 PM Discharge Plan Visit Data Chief Complaint: Chest Pain Stated Complaint: CHEST PAINS, SOB, LT ARM PAIN ED Provider: Hosea Salmon Discharge Problem: Acute exacerbation of CHF (congestive heart failure), Chest pain, MARC (dyspnea on exertion), History of coronary artery disease Forms Stand Alone Forms: My [facility] [employer] Prescriptions Prescriptions: No Action atorvastatin [Lipitor] 40 mg tablet 40 mg PO UD Rx Instructions: 40 mg po qam. last filled 09/26 90 day supply citalopram [Celexa] 40 mg tablet 40 mg PO QAM enalapril maleate [Vasotec] 2.5 mg tablet 2.5 mg PO UD Rx Instructions: on hold levothyroxine 25 mcg capsule 25 mcg PO QAM trazodone 50 mg tablet 50 mg PO HS PRN (Reason: Sleep) Rx Instructions: last filled 10/17 90 day supply docusate sodium 100 mg capsule 100 mg PO BID PRN (Reason: Constipation) Rx Instructions: 01/24-otc unable to verify cyanocobalamin (vitamin B-12) 1,000 mcg Tablet 1,000 mcg PO DAILY Rx Instructions: 01/24-otc unable to verify sildenafil [Viagra] 100 mg Tablet 100 mg PO UD PRN (Reason: Erectile Dysfunction) Rx Instructions: last filled 11/02 fenofibrate micronized 134 mg capsule 134 mg PO QAM pantoprazole 40 mg Tablet,Delayed Release (Dr/Ec) 40 mg PO QAM Qty: 30 0RF acetaminophen 325 mg Tablet 650 mg PO Q6H PRN (Reason: fever or pain) Qty: 60 0RF Rx Instructions: 01/24-otc unable to verify psyllium husk [Fiber (psyllium husk)] 0.4 gram Capsule 0.4 g PO DAILY Qty: 30 0RF Rx Instructions: 01/24-otc unable to verify prednisone 10 mg tablet 10 mg PO UD Hold Instructions: Resume on 01/08/25. resume after you finish prednisone taper Rx Instructions: 5 tabs for 2 days, 4 tabs for 2 days, 3 tabs for 2 days, 2 tabs for 2 days, 1 tab for 2 days 01/24- no fill history available. albuterol sulfate 90 mcg/actuation HFA aerosol inhaler 2 puff INHALATION Q6H PRN (Reason: sob/wheezing) Rx Instructions: 01/24-no fill history available metoprolol succinate 50 mg tablet extended release 24 hr 25 mg PO DAILY ondansetron HCl 4 mg tablet 4 mg PO Q8H PRN (Reason: Nausea And Vomiting) Rx Instructions: last 12/19 7 day supply warfarin 3 mg tablet 1 - 2 mg PO UD Rx Instructions: as directed by [facility] guaifenesin [Mucinex] 600 mg Tablet Extended Release 12hr 600 mg PO Q12 Qty: 14 0RF Rx Instructions: 01/24-otc unable to verify magnesium oxide 400 mg (241.3 mg magnesium) Tablet 400 mg PO DAILY Qty: 5 0RF Rx Instructions: 01/24-otc unable to verify Ozempic 0.25 mg or 0.5 mg (2 mg/3 mL) pen injector 0.5 mg subcut WK budesonide-formoterol [Symbicort] 160-4.5 mcg/actuation HFA aerosol inhaler 2 puff inhalation UD Rx Instructions: 2 puff inhalation bid. last filled 12/31 16 day supply Referrals Referrals: Neo Han MD [Primary Care Provider] - Discharge Problem: Acute exacerbation of CHF (congestive heart failure) Qualifiers: Heart failure type: systolic Qualified Code(s): I50.23 - Acute on chronic systolic (congestive) heart failure Chest pain Qualifiers: Chest pain type: unspecified Qualified Code(s): R07.9 - Chest pain, unspecified
[2025-01-24 15:25] LABS: Basophils # (auto) 0.05 K/uL (0.00-0.20); Eosinophils # (auto) 0.09 K/uL (0.00-0.50); Eosinophils % (auto) 1.7 %; Hematocrit (blood only) 34.6 % (42.0-52.0); Hemoglobin 11.6 g/dl (14.0-18.0); Immature Granulocytes # (auto) 0.03 K/uL (0.01-0.20); Immature Granulocytes % (auto) 0.6 %; Lymphocytes # (auto) 0.87 K/uL (1.20-3.40); Lymphocytes % (auto) 16.8 %; Mean Corpuscular Hemoglobin 29.9 pg (25.0-34.0); Mean Corpuscular Hgb Conc 33.5 g/dL (32.0-36.0); Mean Corpuscular Volume 89.2 fL (80.0-100.0); Mean Platelet Volume 12.1 fL (9.4-12.4); Monocytes # (auto) 0.39 K/uL (0.11-0.59); Monocytes % (auto) 7.5 %; Neutrophils # (auto) 3.74 K/uL (1.40-6.50); Neutrophils % (auto) 72.4 %; Platelet Count 157 K/uL (130-400); RDW Coefficient of Variation 14.2 % (11.5-14.5); RDW Standard Deviation 45.7 fL (36.4-46.3); Red Blood Count 3.88 M/uL (4.70-6.10); White Blood Count 5.17 K/ul (4.8-10.8)
[2025-01-24 15:41] LABS: Albumin Globulin Ratio 1.6 (0.9-2); Albumin Level 4.2 gm/dl (3.4-5.0); BUN Creatinine Ratio 20.2 (10-20); Bilirubin,Total 0.8 mg/dl (0.2-1.0); Calcium 8.9 mg/dl (8.6-10.3); Creatinine Clr Calc Pharmacy 63.6 ml/min; Globulin 2.6 gm/dl (2.5-4.0); Potassium 3.9 mmol/L (3.5-5.1); Total Protein 6.8 gm/dl (6.0-8.3)
[2025-01-24 15:53] LABS: INR 2.9 (0.9-1.1); Partial Thromboplastin Ratio 1.8; Partial Thromboplastin Time 48 Seconds (21-31); Prothrombin Time 28.4 Seconds (9.0-12.0)
--- NOTE | 2025-01-24 16:15 | History & Physical Report ---
Date of Service January 24, 2025 Assessment & Plan (1) Heart failure, systolic, with acute decompensation: (2) Hypomagnesemia: (3) CAD (coronary artery disease): (4) HTN (hypertension): (5) Hyperlipidemia: (6) COPD (chronic obstructive pulmonary disease): (7) History of tobacco abuse: (8) Cirrhosis of liver: (9) Hypothyroidism: (10) Apical mural thrombus: Plan This is a 79-year-old male with PMH of CAD, DM II, history of apical mural thrombus on coumadin, HTN, history of cirrhosis of liver, hypothyroidism, hyperlipidemia, polyneuropathy, history of CVA, B12 deficiency, acquired cyst of kidney, BPH, cervical spondylosis, depression, primary insomnia who presents for progressively worsening shortness of breath x 5 days and was found to have decompensated systolic heart failure. Acute decompensated systolic heart failure Recently admitted for RSV bronchiolitis, had echo during admission that showed reduced EF of revealed newly reduced EF of 25-30% (from 40%) with moderate- severe LV hypokinesis Nolan better on discharge but has progressive dyspnea on exertion x 5 days Given 20mg IV Lasix in ED and placed on bipap due to work of breathing, no documented hypoxia -> wean bipap as tolerated CXR with stable exam; chronic cardiomegaly and pulmonary vascular congestion in a patient has had prior coronary artery bypass surgery and a left shoulder joint replacement BNP 1090, troponin 39 with repeat pending ECG with sinus rhythm with frequent PVCs, LAD, nonspecific intraventricular conduction block similar to previous Will give an additional for a total of 40mg IV lasix tonight Potassium chloride 40meq x 1 Strict I&Os, daily weights Continue reduced Toprol dose of 25mg daily Cardiology consulted Hypomagnesemia Initial Mag 1.4, replaced in ED Monitor Elevated troponin, CAD No acute ECG changes, some chest discomfort earlier today with vomiting x 1 at 0900, pain is still a 3/4, improved with ntg Troponin elevated at 39, repeat pending. Likely ischemic demand 2/2 above but will monitor trops overnight Most recent cath in December 2022 in setting of unstable angina, s/p PCI to OM 3 with single MAYLIN Continue Toprol at 25mg, atorvastatin Repeat ECG in AM Anticoagulated with coumadin - will hold PM dose and consider transition to IV heparin once INR 2 if trop bumps overnight, cards to evaluate in AM Discussed with Dr. Read - chest pain likely 2/2 CHF but suggests addition of 324mg aspirin now DM II A1c 5.5 in December 2024 Hold home agents SSI while in-patient BSG AC HS COPD Appears compensated Completed abx and pred taper from last admission Continue Spiriva Awaiting PFT results from 8 H/o apical mural thrombus Noted during December 2022 INR therapeutic at 2.9 Daily INR while admitted History of liver cirrhosis Follows with Jocy MOSS. No abnormalities noted on LFTs Continue diuresis as above, monitor Hypothyroidism Continue levothyroxine DVT Ppx: coumadin Code status: FULL PCP: Guille Dispo: Admitted to PCU Patient seen in collaboration with Dr. Dowling. Please see addendum. I spent a total of 75 minutes coordinating, documenting, and providing care for this patient excluding time spent in the performance of separately billed services or time spent by another provider/QHP. History of Present Illness Chief Complaint: Shortness of breath Primary Care Provider: Neo Han MD This is a 79-year-old male with PMH of CAD, DM II, history of apical mural thrombus on coumadin, HTN, history of cirrhosis of liver, hypothyroidism, hyperlipidemia, polyneuropathy, history of CVA, B12 deficiency, acquired cyst of kidney, BPH, cervical spondylosis, depression, primary insomnia who presents for progressively worsening shortness of breath x 5 days. Patient was recently admitted to our service from 12/28- with acute hypoxic respiratory failure in setting of RSV and COPD exacerbation. CTA of chest also with small layering bilateral pleural effusions. Was treated with Duonebs, abx and prednisone as well as gentle diuresis with 20mg IV lasix daily. Was seen by pulm and discharged home on Symbicort and prednisone taper. During admission, 2D echo revealed newly reduced EF of 25-30% with moderate-severe LV hypokinesis. Was instructed to follow-up with cardiology in clinic. Followed up with Dr. Han on 01/09/25 and was notably lightheaded and dizzy. Enalapril held and Toprol reduced to 25mg daily with instruction to monitor BP at home and follow up with cards. Feels less lightheaded since BP medications reduced but continues to feel fatigued and with worsening dyspnea on exertion. states he is sleeping a lot. First noted it walking around his house but now experiencing evening getting to bathroom. SOB laying down so has been sitting up to sleep. Not on O2 at home. Denies any chest pressure now but endorsing intermittent chest and back over the past week in setting of MARC that has been more constant today. Vomited this AM x 1. Scheduled to see cardiology in clinic 02/13/25 but did not feel he could wait that long and came to ED for further evaluation. Compliant with medications at home but due for evening coumadin. Denies any increased fluid intake or dietary changes in the past week. No lower extremity swelling but abdomen more distended than baseline. No F/C, congestion, palpitations, wheezing, abd pain, dysuria, diarrhea or constipation. Allergies Allergy/AdvReac Type Severity Reaction Status Date / Time niacin Allergy Unknown ITCHY Verified 10/08/23 08:55 SPLOTCHY RASH Home Medications Medication Instructions Recorded Confirmed Type atorvastatin 40 mg tablet (Lipitor) 40 mg PO UD 12/18/20 01/24/25 History citalopram 40 mg tablet (Celexa) 40 mg PO QAM 12/18/20 01/24/25 History enalapril maleate 2.5 mg tablet 2.5 mg PO UD 12/18/20 01/24/25 History (Vasotec) levothyroxine 25 mcg capsule 25 mcg PO QAM 12/18/20 01/24/25 History cyanocobalamin (vitamin B-12) 1,000 mcg PO DAILY 09/23/21 01/24/25 History 1,000 mcg tablet fenofibrate micronized 134 mg 134 mg PO QAM 09/23/21 01/24/25 History capsule sildenafil 100 mg tablet (Viagra) 100 mg PO UD PRN Erectile 09/23/21 01/24/25 History Dysfunction pantoprazole 40 mg tablet,delayed 40 mg PO QAM #30 tabs 09/24/21 01/24/25 Rx release acetaminophen 325 mg tablet 650 mg (2 x 325 mg) PO Q6H PRN 01/12/22 01/24/25 Rx fever or pain #60 tabs psyllium husk 0.4 gram capsule 0.4 g PO DAILY #30 caps 01/12/22 01/24/25 Rx (Fiber (psyllium husk)) docusate sodium 100 mg capsule 100 mg PO BID PRN Constipation 12/31/22 01/24/25 History trazodone 50 mg tablet 50 mg PO HS PRN Sleep 12/31/22 01/24/25 History albuterol sulfate 90 mcg/actuation 2 puff inhalation Q6H PRN 12/28/24 01/24/25 History aerosol inhaler sob/wheezing metoprolol succinate 50 mg 25 mg PO DAILY 12/28/24 01/24/25 History tablet,extended release 24 hr ondansetron HCl 4 mg tablet 4 mg PO Q8H PRN Nausea And Vomiting 12/28/24 01/24/25 History prednisone 10 mg tablet 10 mg PO UD 12/28/24 01/24/25 History warfarin 3 mg tablet 3 - 6 mg PO Q OTHER DAY 12/28/24 01/24/25 History guaifenesin 600 mg tablet, 600 mg PO Q12 #14 tabs 01/01/25 01/24/25 Rx extended release 12 hr (Mucinex) magnesium oxide 400 mg (241.3 mg 400 mg PO DAILY #5 tabs 01/01/25 01/24/25 Rx magnesium) tablet budesonide-formoterol HFA 160 2 puff inhalation UD 01/24/25 01/24/25 History mcg-4.5 mcg/actuation aerosol inhaler (Symbicort) semaglutide 0.25 mg or 0.5 mg (2 0.5 mg subcut WK 01/24/25 01/24/25 History mg/3 mL) subcutaneous pen injector (Ozempic) Past Med/Surg History Problem List History of coronary artery disease (Acute) MARC (dyspnea on exertion) (Acute) Chest pain (Acute) Acute exacerbation of CHF (congestive heart failure) (Acute) Hypomagnesemia Heart failure, systolic, with acute decompensation Systolic CHF History of tobacco abuse Wheeze Acute hypoxic respiratory failure CAP (community acquired pneumonia) Sepsis Pulmonary edema Myocardial injury RSV (acute bronchiolitis due to respiratory syncytial virus) Acute bronchospasm (Acute) Elevated troponin (Acute) Ischemic cardiomyopathy Non-ST elevation (NSTEMI) myocardial infarction Lab test negative for COVID-19 virus (Acute) Apical mural thrombus (Acute) Chest pain (Acute) Diverticulitis (Acute) Shoulder pain Carpal tunnel syndrome, left Cervical radiculopathy at C8 Chronic back pain HTN (hypertension) Lumbar radicular pain "off and on" CAD (coronary artery disease) 1994-CABG x2 2004-MAYLIN to circumflex 12/2022-MAYLIN @[place] Diabetes weekly injection 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 ongoing H/O heart artery stent (Acute) 2004, [facility], x1 stent 12/2022, [facility], x1 stent; f/u [facility] cardio Medical History COPD (chronic obstructive pulmonary disease) Hyperlipidemia Cirrhosis of liver currently stable, f/u specialist at [facility] gw Hx of myocardial infarction 2004, taken to [facility] for double bypass; f/u [facility] cardio GERD (gastroesophageal reflux disease) Hypothyroidism Hx of long-term (current) use of anticoagulants eliquis and clopidogrel Cervical disc disorder at C5-C6 level with radiculopathy Lumbar back pain with radiculopathy affecting left lower extremity "off and on" Foraminal stenosis of lumbar region L5-S1 DDD (degenerative disc disease), lumbar Rupture of hip abductor tendon no sx Surgical History History of esophagogastroduodenoscopy (EGD) Hx of colonoscopy Hx of tonsillectomy Hx of cardiac cath 2004, [facility], x1 stent 04/2023, having normal checkup w/echo and saw blood clot in the left ventricle, [facility], x1 stent; f/u [facility] cardio S/P hernia surgery abdominal hernia operations x3 H/O heart bypass surgery 1994, double bypass, [facility]; f/u [facility] cardio H/O shoulder replacement left H/O laminectomy ~age 67 Family History Other Diabetes Heart disease Social History Smoking Status: Never smoker Tobacco Type: Cigarettes Cigarettes Per Day: 2 packs; quit 20 yrs ago; Second Hand Exposure: No; Do You Dip or Chew Tobacco: No; Hx Alcohol Use: Yes Alcohol type: beer Hx Substance Use: No Preferred Language: Citizen Of [place] Communication Ability: Effective Faculty Criminal Justice Required: No Beliefs That Will Affect Care: None marital status: Current Living Situation: Spouse current occupational status: retired How many Children do You have: 2 Feels Safe at Home: Yes Assistive Devices: Hearing Aid - Bilateral Review of Systems Review of Systems: At least ten systems reviewed and negative except as noted in the HPI. Physical Exam Physical Exam: General Appearance: WD/WN, vitals as above, NAD, sitting up in bed, appears il l, wearing bipap mask Head: normocephalic, atraumatic Eyes: normal inspection, PERRL, conjunctivae normal, anicteric sclerae ENT: external ear and nose normal, +bipap mask Neck: normal visual inspection, trachea midline, no thyromegaly Respiratory: increased respiratory effort, + bibasilar rales, no wheezing Cardiovascular: tachycardic rate, regular rhythm,normal peripheral pulses, trace BLE edema Chest: normal inspection of chest Abdomen/GI: distended but non-tender, reducible ventral hernia, normal bowel sounds, no hepatosplenomegaly Extremities/Musculoskeletal: no cyanosis or clubbing, extremities motor strength 5/5 Neurologic: PERRL, EOMI, accommodation nl, no face palsy, no dysarthria, CN's II-XI intact bilaterally and moves all extremities Psychiatric: A+Ox3, euthymic affect Skin: no rashes, normal color, warm/dry Results & Data Results & Data Vital Signs (Past 12 Hours) Vital Signs Temp Pulse Pulse Resp BP BP Pulse Ox 01/24/25 16:11 106 H 20 96 01/24/25 15:01 107 H 22 126/92 94 01/24/25 14:34 114 H 26 H 126/86 93 01/24/25 14:25 112 H 01/24/25 14:21 109 H 18 91 01/24/25 14:14 01/24/25 14:11 35.9 C L 107 H 20 145/80 H 95 O2 Del Method FiO2 01/24/25 16:11 24 01/24/25 15:01 Room Air 01/24/25 14:34 Room Air 01/24/25 14:25 01/24/25 14:21 Room Air 01/24/25 14:14 Room Air 01/24/25 14:11 Room Air Laboratory Results Short CBC 01/24/25 Range/Units 15:05 WBC 5.17 (4.8-10.8) K/ul Hgb 11.6 L (14.0-18.0) g/dl Hct 34.6 L (42.0-52.0) % Plt Count 157 (130-400) K/uL BMP 01/24/25 15:05 Sodium 139 Potassium 3.9 Chloride 107 Carbon Dioxide 22 BUN 21 Creatinine 1.04 Glucose 137 H Calcium 8.9 Liver Function 01/24/25 Range/Units 15:05 Total Bilirubin 0.8 (0.2-1.0) mg/dl AST 12 L (13-39) U/L ALT 8 (7-52) U/L Alkaline Phosphatase 51 (34-104) U/L Albumin 4.2 (3.4-5.0) gm/dl Diagnostic Findings Chest X-Ray 01/24/25 14:18 XR chest 1V portable CLINICAL HISTORY: Chest pain, nonspecific COMPARISON STUDY: 12/29/2024 FINDINGS: Single view portable chest unchanged demonstrating evidence of prior coronary artery bypass surgery and chronic cardiomegaly with left ventricular prominence and associated pulmonary vascular congestion. There is no focal airspace opacity, pneumothorax, or significant pleural effusion. IMPRESSION: Stable exam; chronic cardiomegaly and pulmonary vascular congestion in a patient has had prior coronary artery bypass surgery and a left shoulder joint replacement. ACT 112: Negative or not required by law. Electronically signed by: Rosie Dela Cruz M.D. 01/24/2025 2:50 PM Supervising Physician Co-Signing Physician Notes 79-year-old male with past medical history significant for CAD, type 2 diabetes, hypothyroidism, hyperlipidemia, polyneuropathy, CVA, hypertension, cirrhosis of liver, irritable bowel syndrome with both constipation and diarrhea, B12 deficiency, acquired cyst of kidney, BPH, cervical spondylosis, depression, primary insomnia who presents for SOB and chest pain. He is having SOB over last 4-5 days, worsened w/ activity which leads to him being "sick at stomach" and had one time vomiting today. Pt denies fever, reports appetite ok/bowel and bladder ok. Pt reports sore throat for 2-3 days, he didn't have wheezing on exam. Labs and imagings reviewed: WBC wnl, LFT and lipase wnl, INR therapeutic, RFT wnl. Trop mildly elevated (likely secondary to stress from acute illness), BNP pending, will get flu screen CXR w/ pulmonary vascular congestion. Received 20 mg iv lasix in ED. No tobacco use, no alcohol use, no drug use, full code. Acute on chronic HFrEF: 12/29/24 ECHO w/ EF of 25-30%, comes in w/ progressive MARC x 4-5 days ago [employer]. s/p iv lasix in ED, will c/w 40 mg iv lasix daily for now. additional 20 mg iv lasix now, give K 40 meq and mg 2 gm. monitor and replete electrolytes. Likely Demand ischemia: trop elevated at 39, trend trop, likely demand ischemia from acute illness, tele monitoring. On Exam: GENERAL: Alert and oriented x3. NAD, on BPAP. Pleasant. HEENT: No pallor, no icterus. Pupils equal, round and reactive to light. Oral mucosa moist. NECK: No JVD, no neck masses. HEART: S1 and S2 heard. Regular rate and rhythm. No murmur, no gallop. RESPIRATORY SYSTEM: Normal AP diameter. No accessory muscle use. No wheezing, bb crackles. ABDOMEN: Soft, bowel sounds present, nontender, + distention. CENTRAL NERVOUS SYSTEM: No facial droop. Speech is clear. Obeys simple commands. Moves extremities. EXTREMITIES: trace ble edema, no erythema seen. I have seen and examined the patient and have discussed the case with the provider above. I agree with the assessment and plan as stated. Time spent: 25 min. (3) CAD (coronary artery disease) Associated angina: without angina Coronary Disease-Associated Artery/Lesion type: [place] artery [place] vs. transplanted heart: [place] heart Qualified Code(s): I25.10 - Atherosclerotic heart disease of [place] coronary artery without angina pectoris
[2025-01-24] MEDS: FUROSEMIDE INJ 20 MG/2 ML VIAL IV ONE ×2 (16:29→18:01)
[2025-01-24] MEDS: LORazepam 2 MG/1 ML VIAL IV STA (16:29)
[2025-01-24 17:29] LABS: Magnesium 1.4 mg/dl (1.7-2.4)
[2025-01-24] MEDS: MAGNESIUM SULFATE / D5W 1 GM/100 ML BAG IV SCH (18:02)
[2025-01-24] MEDS: NITROGLYCERIN SL 0.4 MG/TAB TAB SL PRN (18:12)
[2025-01-24 18:27] LABS: Influenza A virus by PCR Negative (Neg); Influenza B virus by PCR Negative (Neg); RSV by PCR Negative (Neg); SARS CoV2 RNA(COVID-19) Ceph NEGATIVE (Negative)
[2025-01-24] MEDS ORDERED: GLUCAGON FOR INJ 1 MG VIAL SQ PRN (18:40)
[2025-01-24] MEDS ORDERED: DEXTROSE 50% 50 ML SYRINGE IV PRN (18:40)
[2025-01-24] MEDS ORDERED: GLUCOSE 40% GEL 15 GM TUBE PO PRN (18:40)
[2025-01-24] MEDS ORDERED: GLUCOSE 10 TAB/TUBE PO PRN (18:40)
[2025-01-24] MEDS ORDERED: CARBOHYDRATES FOR HYPOGLYCEMIA PO PRN (18:40)
[2025-01-24] MEDS: POTASSIUM CHLORIDE CRTAB 20 MEQ TABCR PO STA (18:48)
[2025-01-24] MEDS ORDERED: ALBUTEROL HFA 8 GM INHALER INH PRN (19:18)
[2025-01-24] MEDS ORDERED: DOCUSATE SODIUM 100 MG CAP PO PRN (19:18)
[2025-01-24] MEDS ORDERED: ONDANSETRON INJ 2 MG/ML 2 ML VIAL IV PRN (19:18)
[2025-01-24] MEDS ORDERED: POLYETHYLENE (MIRALAX) 17 GM PACK PO PRN (19:18)
[2025-01-24] MEDS: ASPIRIN CHEW 324 MG PO STA (20:54)
[2025-01-24] MEDS: INSULIN ASPART PER UNIT CHARGE SC SCH (20:54)
--- OUTSIDE RECORDS SUMMARY | 2025-01-24 23:15 | External Medical Summary | Summary of Care ---
Author Name Unknown Organization [facility] Address [address] [place] [address] Phone [phone] Care Team Providers Care Html Developer Name Role Phone Neo Han MD Primary Care Provide r Reason for Visit * Reason Comments NEW PATIENT * Evaluate & Treat - Unlimited Visits (Within 10 days (routine)) - Authorized Specialty Diagnoses / Procedures Referred By Contac t Referred To Contact Pulmonary Diseases / Pulmonary Diagnoses History of RSV infection SOB (shortness of breath) Neo Han MD [address] [place] [address] [place] [address] Phone: tel: fax: Referral ID Status Reason Start Date Expiration Date Visits Requested Visits Authorized [id number] Authorized Specialty Services Required 01/09/2025 [id number] Encounter Details Date Type Department Care Team (Late st Contact Info) Description 01/16/2025 11:00 AM EDT Office Visit Pulmonary Medicine, [facility] [address] [place] [phone] Rodolfo Mcneil MD [address] [place] [address] [phone] Acute bronchitis due to respiratory syncytial virus (RSV)* Allergies Active Allergy Reactions Criticality Noted Date Comments Niacin 01/07/2022 Other reaction(s): ITCHY SPLOTCHY RASH Niacin Er (Antihyperlipidemic) Flushing 09/04/2010 documented as of this encounter (statuses as of 01/16/2025) Medications FIBER FORMULA PO CAPS Take 1 Cap by mouth daily. Active LANCETS MISCIndications: Diabetes mellitus type 2, diet-controlled (HCC) Use once daily as directed Dx 250.00 1 Box 5 07/24/20 13 Active Cyanocobalamin (VITAMIN B-12) 1000 MCG Tablet Take 1 Tablet by mouth in the morning. 05/16/20 19 Active Blood Glucose Monitoring Suppl (iMall.euTOUCH VERIO) w/Device KIT Test daily E11.9 1 Kit 04/16/20 20 Active OneTouch UltraSoft LancetsIndicatio ns:Type 2 diabetes mellitus with hemoglobin A1c goal of less than 8.0% ([facility]) Test daily. E11.9 100 Each 1 10/02/20 21 Active Acetaminophen 325 MG Oral Tablet (Tylenol) Take 2 Tablets by mouth every 6 hours as needed. 01/13/20 22 Active Advanced Probiotic Oral Capsule Take by mouth 2 Capsules daily . For 10 days Active Architizer In Vitro Strip (Glucose Blood)Indication s:Type 2 diabetes mellitus with hemoglobin A1c goal of less than 8.0% (HCC) Test daily E11.9 100 Strip 1 07/20/20 22 Active Clopidogrel Bisulfate 75 MG Oral Tablet [...] week. 3 mL 5 07/06/20 24 Active Warfarin Sodium 3 MG Oral [...] for Nausea. 21 Tablet 12/20/19 25 Active Albuterol Sulfate HFA 108 (90 Base) MCG/ACT Inhalation Aerosol SolutionIndicati ons:Pneumonia of both lower lobes due to infectious organism Inhale 2 Puffs by mouth every 6 hours as needed for Shortness of Breath or Wheezing. 6.7 g 12/29/19 25 Active Fenofibrate Micronized 134 MG Oral CapsuleIndicatio ns:Lipoprotein deficiency Take 1 Capsule by mouth in the morning. 90 Capsule 1 01/04/20 25 Active Budesonide-Formo terol Fumarate 160-4.5 MCG/ACT Inhalation Aerosol (Symbicort) Inhale 2 Puffs by mouth in the morning and 2 Puffs before bedtime. 01/01/20 25 Active guaiFENesin ER 600 MG Oral Tablet Extended Release 12 Hour (Humibid LA) Take 1 Tablet by mouth in the morning and 1 Tablet before bedtime. 01/02/20 25 Active Magnesium Oxide 400 MG Oral Tablet Take 1 Tablet by mouth in the morning. 01/02/20 25 Active Metoprolol Succinate ER 50 MG Oral Tablet Extended Release 24 Hour (toPROL XL) Take 0.5 Tablets by mouth in the morning. 01/10/20 25 Active Enalapril Maleate 2.5 MG Oral Tablet (Vasotec) Take 1 Tablet by mouth in the morning and 1 Tablet before bedtime. HOLD OF 01/09/25 DUE TO HYPOTENSION AND F/U WITH CARDIOLOGY. 03/25/20 25 Active Hospital, Clinic, or Other Facility Administered Medication Ordered Dose Route Frequency Start Date End Date Status Albuterol Sulfate (Proventil) (5 MG/ML) 0.5% *conc* inhalation solution 2.5 mgIndications:Acute bronchitis due to respiratory syncytial virus (RSV) 2.5 mg NEBULIZER PRN 01/16/2025 01/16/2026 Active documented as of this encounter (statuses as of 01/16/2025) Active Problems Problem Noted Date Diagnosed Date Pulmonary hypertension 01/09/2025 Chronic ischemic heart disease 02/04/2024 HTN, goal below 130/80 02/04/2024 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 ([facility]) 01/11/2023 Systolic congestive heart failure 01/11/2023 S/P drug eluting coronary stent placement 2022 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 Coronary artery disease invo lving pilot station coronary artery of pilot station heart without angina pectoris 01/11/2023 Incisional hernia, [...] as of this encounter (statuses as of 01/16/2025) Resolved Problems Problem Noted Date Diagnosed Date [...] as of this encounter (statuses as of 01/16/2025) Immunizations Name Administration Dates Next Due COVID-19 [...] Sign Reading Time Taken Comments Blood Pressure 126/74 01/16/2025 10:39 AM EDT Pulse 84 01/16/2025 10:39 AM EDT Temperature 36.2 °C (97.1 °F) 01/16/2025 10:39 AM E DT Respiratory Rate 20 01/16/2025 10:39 AM EDT Oxygen Saturation 98% 01/16/2025 10:40 AM EDT ra, amb Inhaled Oxygen Concentration - - Weight 87.3 kg (192 lb 6.4 oz) 01/16/2025 10:39 AM EDT Height 170.2 cm (5' 7") 01/16/2025 10:39 AM EDT Body Mass Index 30.13 01/16/2025 10:39 AM EDT documented in this encounter Progress Notes * Frandy Pandey PA-C - 01/16/2025 10:50 AM EDT Images from the original note were not included. Referred by: Neo Han MD CC: F/u appointment after hospital discharge due to RSV infection and acute bronchitis PULMONARY PROBLEM LIST Tobacco use disorder quit 20 years ago, used to smoke 2 packs a day for 20 years Recent hospitalization due to RSV infection (12/29/2024 to 01/01/2025) OTHERS CHF Reduce LV systolic function 20% by 2D echo LV blood clot stable with treatment with warfarin and Plavix Mild hepatic cirrhosis f/u with GI doctor IMPRESSIONS Acute bronchitis due to RSV infection ASSESSMENT/PLAN: Counseling on physical activity PFT's 6MWT Nocturnal oximetry CBC with differential Try to avoid sick contact Keep f/u appointment with Cardiology and GI specialist Follow up in 6 weeks or sooner if symptoms fail to improve or get worse History of Presenting Illness: Juanito Yono is a 79 year old male with a [facility] Patient reported SOB, MARC, and cough for 2 weeks. He was seen in the family practice office on 12/28/2024, and starter Augmentin, Zithromax, prednisone, and albuterol. Later that day he started feeling worse so he went to the ED. His was also admitted with a RSV infection. Patient tested positive for RSV, CT angiogram was negative for PE but showed very small bilateral pleural effusion and atelectasis in the right lower lobe as well as diffuse airway thickening. Patient was admitted to the hospital for concerning CHF and chronic infectious bronchitis. While in the hospital patient started DuoNeb, ceftriaxone, azithromycin, and prednisone. Patient developed worsening shortness of breath, wheezing and chest discomfort on 12/29/2024. He was transferred and pulmonary service was consulted. He was started on Symbicort and he was recommended PFT as outpatient. Patient was discharged on prednisone, doxycycline, and cefuroxime on January 01, 2025. Patient was seen in family practice on 01/09/2025 he still failed weak and tired. He already completed antibiotic and steroid therapy. Blood pressure was very low. With see the patient for the 1st time in the office today. He reported significant improvement of his respiratory symptoms. He finished the treatment for pneumonia and RSV. He has not used a inhalersat home since he does not feel any shortness of breath. He keeps himself active, taking care of hishouse course and his . Denies any known diagnosis of asthma or COPD. Denies frequent bronchitis infections or pneumonia. Denies frequent respiratory infections during childhood. Denies a family history of respiratory disease. Denies any known exposure to TB. Denies prior history of DVT/PE. Recently diagnosed with LV blood clot on warfarin and Plavix therapy MMRC Dyspnea Scale = 0 (I only get breathless with strenuous exercise) Respiratory Symptoms: Cough: No Sputum: No Hemoptysis: No Wheeze: No Sinus Symptoms/Seasonal allergies: No Reflux: No Nocturnal Symptoms: Orthopnea: No Paroxysmal nocturnal dyspnea: No Sleeps in bed with 1 pillows. Swelling: No Dysphagia: No Pulmonary Therapies: Current Inhalers: None currently Other: Oxygen: No CPAP/BIPAP use: No Social History: Tobacco: 2 packs a day x 20 years quit 20 years ago Vaping: No Alcohol: No Drugs: No Occupational Exposures: Current Position: Salesmen Residence/Potential Ex: Residence: Lives at home with Birds/Pets: 1 cat Review of Systems: Constitutional: no fevers, chills, sweats. Stable weight, preserved appetite Eyes: No chronic dry eye or h/o glaucoma. Ears: No ear pain, tinnitus or vertigo. Mouth: No bleeding gums, thrush, excessive dry mouth or sore throat. No dysphagia. Neck: No swollen glands or significant pain in neck. Pulmonary: See History Cardiovascular: No chest pain, edema or palpitations. No dizziness with standing. GI: No abdominal pain, change in bowel habits, or dark or bloody stools. Skin/Integumentary: No abnormal skin lesions noted, evidence of rash, or itching. No h/o atopy. Neurologic: Normal balance, No headaches or weakness. No history of CVA. Rheum: No red swollen joints, Raynaud's or h/o other auto-immune disorder. Endocrine: No thyroid disease or symptoms. No diabetes. Sleep: No history of sleep disorder. Remainder of the ROS as above or non contributory. Physical Exam: BP 126/74 | Pulse 84 | Temp 36.2 °C (97.1 °F) (Tympanic) | Resp 20 | Ht 1.702 m (5' 7") | Wt 87.3kg (192 lb 6.4 oz) | SpO2 98% Comment: ra, amb | BMI 30.13 kg/m² | BSA 2.03 m² General: No acute distress. A+Ox3. Eyes: Conjunctiva are pink and non-injected, sclera clear Oropharynx: No exudate,no erythema, buccal mucosa and tongue normal. Neck: Supple,no adenopathy,thyroid normal size, non-tender Heart: Irregular rate & normal rhythm. No murmurs. JVD. Lungs: Respirations even and unlabored. Clear to auscultation. No wheezing, rhonchi or crackles noted. Pulses: radial=2/4 Extremities: No edema. No clubbing. No cyanosis. No joint deformities. Neurologic: Appropriate affect. Skin: No rashes or lesions noted. DATA: Labs & Imaging Reviewed Below: LABs CCT done at [facility] 12/29/2024 CHEST XRAY 12/29/2024 done at [facility] Past Medical History: Past Medical History: Diagnosis Date BPH without obstruction/lower urinary tract symptoms Cerebrovascular event, ill-defined, within last 8 weeks 12/06/2007 Chronic ischemic heart disease Colon polyps Coronary atherosclerosis COVID-19 05/22/2022 Depressive disorder, not elsewhere classified 12/14/2007 Disc disorder of lumbar region L5-S1 HTN, goal below 140/90 HTN, goal to be determined LOW HDL 04/14/2008 Mixed dyslipidemia 12/06/2007 Old [place] (myocardial infarction) 10/18/1994 OTHER [place], Angina, Diverticulosis, Hiatal hernia, Hypertension, Hypothyroidism, CVA, Salivary gland stone right submax gland Varicella without complication age 12 Past Surgical History: Past Surgical History: Procedure Laterality Date BALLON ANGIOPLASTY;SINGLE 03/24/2005 with stents COLONOSCOPY, DIAGNOSTIC (RECTUM) 1994 COLONOSCOPY, DIAGNOSTIC (RECTUM) 02/18/2007 Dr. Peña COLONOSCOPY, DIAGNOSTIC (RECTUM) 06/12/2013 COLONOSCOPY FLEXIBLE PROXIMAL DIAGNOSTIC performed by Sandoval Lama DO [place] [facility] [place]ONOSCOPY, DIAGNOSTIC (RECTUM) 11/22/2015 diverticulosis, normal bx/COLONOSCOPY FLEXIBLE PROXIMAL DIAGNOSTIC performed by Abdelrahman Strickland ENDOSCOPY [facility] COLONOSCOPY, DIAGNOSTIC (RECTUM) 10/26/2019 inflammation on bx, diverticulosis/COLONOSCOPY FLEXIBLE PROXIMAL DIAGNOSTIC performed by Brant Zhao MD at ENDOSCOPY [facility] CORONARY ARTERY BYPASS, SINGLE [address] Skinner EGD, FLEXIBLE, DIAGNOSTIC 10/26/2019 reflux esophagitis, hiatal hernia, gastritis, repeat 2 mo/ESOPHAGOGASTRODUODENOSCOPY (EGD), FLEXIBLE, TRANSORAL, DIAGNOSTIC performed by Brant Zhao MD at ENDOSCOPY [facility] EGD, FLEXIBLE, DIAGNOSTIC 04/22/2020 hiatal hernia/biopsies normal/ESOPHAGOGASTRODUODENOSCOPY (EGD), FLEXIBLE, TRANSORAL, DIAGNOSTIC performed by Brant Zhao MD at ENDOSCOPY [facility] EGD, FLEXIBLE, DIAGNOSTIC 09/24/2021 normal bx / INPT [facility] EGD, FLEXIBLE, DIAGNOSTIC N/A 10/08/2023 portal hypertensive gastropathy/recall 2 years/EGD/MN INJECT DX/THER SUBSTANCE INTERLAMINAR LUMBAR/SACRAL W IMAGE GUIDE 12/14/2016 INJECTION SPINE LUMBAR OR SACRAL performed by Ander Maki Boland DO at OR [facility] INJECTION LUMBAR/SACRAL 08/05/2016 INJECTION SPINE LUMBAR OR SACRAL performed by Ander Boland DO at OR [facility] REMOVAL OF PROSTATE (TURP) 03/12/2010 TRANSURETHRAL RESECTION PROSTATE ELECTROSURGICAL performed by THOMAS DEWEY at [place] [facility] REMOVAL OF SALIVARY STONE, SIMPLE removed right [...] TRANSRECTAL performed by THOMAS DEWEY at [place] [facility] Allergies: Review of patient's allergies indicates: Allergen Reactions Niacin Other reaction(s): ITCHY SPLOTCHY RASH Niaspan [Niacin Er (Antihyperlipidemic)] Flushing Medications: Current Outpatient Medications Medication Sig Dispense Refill FIBER FORMULA PO CAPS Take 1 Cap by mouth daily. LANCETS MISC Use once daily as directed Dx 250.00 1 Box 5 Cyanocobalamin (VITAMIN B-12) 1000 MCG Tablet Take 1 Tablet by mouth in the morning. Blood Glucose Monitoring Suppl (iMall.euTOUCH VERIO) w/Device KIT Test daily E11.9 1 Kit 0 OneTouch UltraSoft Lancets Test daily. E11.9 100 Each 1 Acetaminophen 325 MG Oral Tablet (Tylenol) Take 2 Tablets by mouth every 6 hours as needed. Advanced Probiotic Oral Capsule Take by mouth 2 Capsules daily . For 10 days Adaptis Solutionsuch VerIssio Solutions In Vitro Strip (Glucose Blood) Test daily E11.9 100 Strip 1 Clopidogrel Bisulfate 75 MG Oral Tablet (pLAVix) [...] skin once a week. 3 mL 5 Warfarin Sodium 3 MG Oral Tablet (Coumadin) [...] breakfast or other meds). 90 Tablet 1 Ondansetron HCl 4 MG Oral Tablet Take 1 Tablet by mouth every 8 hours as needed for Nausea. 21 Tablet 0 Albuterol Sulfate HFA 108 (90 Base) MCG/ACT Inhalation Aerosol Solution Inhale 2 Puffs by mouth every 6 hours as needed for Shortness of Breath or Wheezing. 6.7 g 0 Fenofibrate Micronized 134 MG Oral Capsule Take 1 Capsule by mouth in the morning. 90 Capsule 1 guaiFENesin ER 600 MG Oral Tablet Extended Release 12 Hour (Humibid LA) Take 1 Tablet by mouth in the morning and 1 Tablet before bedtime. Magnesium Oxide 400 MG Oral Tablet Take 1 Tablet by mouth in the morning. Metoprolol Succinate ER 50 MG Oral Tablet Extended Release 24 Hour (toPROL XL) Take 0.5 Tablets by mouth in the morning. Enalapril Maleate 2.5 MG Oral Tablet (Vasotec) Take 1 Tablet by mouth in the morning and 1 Tablet before bedtime. HOLD OF 01/09/25 DUE TO HYPOTENSION AND F/U WITH CARDIOLOGY. Budesonide-Formoterol Fumarate 160-4.5 MCG/ACT Inhalation Aerosol (Symbicort) Inhale 2 Puffs by mouth in the morning and 2 Puffs before bedtime. (Patient not taking: Reported on 01/16/2025) No current facility-administered medications for this visit. Family History: Family History Problem Relation Name Age of Onset Heart Disorder Mother pacemaker Diabetes Father Heart Disorder Father scd age 57 Brain Aneurysm Brother age 55 Diabetes Brother Cancer Son Stroke Uncle (Unspecified) Stroke Uncle (Unspecified) Cancer Grandmother (Maternal) breast Other (Other) Other Hearing loss in aunts and uncles IMPRESSIONS Acute bronchitis due to RSV infection ASSESSMENT/PLAN: Counseling on physical activity PFT's 6MWT Nocturnal oximetry CBC with differential Try to avoid sick contact Keep f/u appointment with Cardiology and GI specialist Follow up in 6 weeks or sooner if symptoms fail to improve or get worse DISPOSITION: Follow up 6 weeks or sooner if symptoms worsen/fail to improve. All questions were answered to the patients satisfaction. Patient advised to report to ED with any and all emergencies. The patient agrees to the above plan and will call with additional questions or concerns. This visit involved medical care services related to at least one serious condition or complex condition requiring ongoing care. This chart was completed in part utilizing Nexmo Speech Voice Recognition Software. Grammatical errors, random word insertions, prounoun errors, and incomplete sentences are an occasional consequence of this system due to software limitations, ambient noise, and hardware issues. Any formal questions or concerns about the content, text, or information contained within the body of this dictation should be directly addressed to the provider for clarification. I spent a total of 45 minutes on the date of service in preparation, delivery, and documentation ofthe care provided to Juanito Yoon excluding any time spent in the performance of separately billed services. Frandy Greene PA-C Pulmonary & Thoracic Medicine [facility] Cosigned by Rodolfo Mcneil MD at 01/16/2025 4:36 PM EDT Associated attestation - Rodolfo Mcneil MD - 01/16/2025 4:36 PM EDT I have reviewed the advanced practitioner's documentation on the date of service referenced in note, and I agree with, and take responsibility for the plan of care. documented in this encounter Nursing Notes * Debbie Granados LPN - 01/16/2025 10:33 AM EDT New pt referred for pulmonary evaluation. MMRC Dyspnea Scale = 1 (I get short of breath when hurrying on level ground or walking up a slight hill) Interm History/Respiratory Symptoms Cough: occasional-improved; dry Hemoptysis: no Sinus Symptoms: occasional drainage Hospitalizations: [facility] 12/29-01/01/25 ED Trips: 12/29/24 Triggers: no Nocturnal: no problems, sleeps with head slightly elevated CPAP/BiPAP/O2: no DME Supplier: n/a Flu Vaccine: unsure Pneumovax: 2020 Prevnar: 2017 COVID 19: x5 documented in this encounter Plan of Treatment Upcoming Encounters Date Type Department Care Team (Late st Contact Info) Description 01/24/2025 11:00 AM EDT Office Visit Gastroenterology, [facility] [address] [phone] Berenice Montano CRNP [address] [address] 01/25/2025 10:00 AM EDT PulmDiagnostic Pulmonary Function Lab, [facility] [address] [place] [phone] [place] [address] [address] 02/08/2025 9:20 AM EDT Anticoagulation Pharmacy, [address] [place] [phone] [place] [address] 02/13/2025 9:30 AM EDT Office Visit Cardiology, [facility] [address] [phone] Jh Brownlee, PADustinC [address] [place] [address] 02/27/2025 3:00 PM EDT Office Visit Pulmonary Medicine, [facility] [address] [phone] Rodolfo Mcneil MD [address] [place] [address] 07/17/2025 1:40 PM EDT Office Visit Family Medicine [address] [place] [phone] Neo Han MD [address] [place] [address] [place] [address] Scheduled Orders Name Type Priority Associated Diagnoses Orde r Schedule CBC WITH WBC DIFFERENTIAL Lab Routine Acute bronchitis due to respiratory syncytial virus (RSV) Expected: 01/16/2025 (Approximate), Expires: 01/16/2026 PULMONARY STRESS TESTING Procedures Routine Acute bronchitis due to respiratory syncytial virus (RSV) Expected: 01/17/2025, Expires: 02/15/2026 NOCTURNAL HOME OXIMETRY (OP) Procedures Routine Acute bronchitis due to respiratory syncytial virus (RSV) Ordered: 01/16/2025 LUNG VOLUMES (PLETHYSMOGRAPHY) Procedures Routine Acute bronchitis due to respiratory syncytial virus (RSV) Expected: 01/23/2025, Expires: 02/15/2026 SPIROMETRY B/A BRONCHODILATOR Procedures Routine Acute bronchitis due to respiratory syncytial virus (RSV) Expected: 01/23/2025, Expires: 02/15/2026 Scheduled Procedures Name Priority Associated Diagnoses Date/Ti me ESOPHAGOGASTRODUODENOSCOPY ( EGD), FLEXIBLE, TRANSORAL, DIAGNOSTIC Recall Portal hypertensive gastropathy (HCC) Health Maintenance Due Date Last Done Comments Depression Monitoring 1959 Zoster Vaccines (1 of 2) 1997 Hepatitis B Vaccine (1 of 3 - Risk 3-dose series) 2007 Adult Wellness Visit 05/07/2018 05/07/2017 Diabetic Foot Exam 05/11/2024 05/11/2023, 0 07/16/2020, 05/12/2019, Additional history exists COVID-19 Vaccine ( season) 2024 07/30/2023, 07/21/2022, 08/12/2021, Additional history exists Colonoscopy 10/26/2024 10/26/2019, 06/2020, 11/22/2015, Additional history exists Diabetic Eye Exam 04/26/2025 04/26/2024, , 11/12/2023, Additional history exists Influenza Vaccine (FLU shot) (Season Ended) 2025 08/04/2005 HbA1c 06/21/2025 12/19/2024, 06/18, 05/11/2023, Additional history exists Albumin/Creatinine Ratio 07/04/202507/04/ 024, 05/11/2023, 05/20/2022, Additional history exists TSH [...] as of this encounter Visit Diagnoses Diagnosis Acute bronchitis due to respiratory syncytial virus (RSV)- Primary documented in this encounter Advance Directives * [...] 2:54 PM 12/14/2007 5:34 PM Care Teams Html Developer Relationship Specialty Start Date End Date Neo Han MD [address] [place] [address] [place] [id number] PCP - General Family Medicine 07/19/13 documented as of this encounter
--- OUTSIDE RECORDS SUMMARY | 2025-01-24 23:15 | External Medical Summary | Summary of Care ---
Author Name Unknown Organization [facility] Address [address] [place] [address] Phone [phone] Care Team Providers Care Retail Marketing Coordinator Name Role Phone Neo Han MD Primary Care Provide r Reason for Referral * Evaluate & Treat - Unlimited Visits (Within 10 days (routine)) - Authorized Specialty Diagnoses / Procedures Referred By Contac t Referred To Contact Pulmonary Diseases / Pulmonary Diagnoses History of RSV infection SOB (shortness of breath) Neo Han MD [address] [place] [address] [place] [id number] Phone: tel: fax: Referral ID Status Reason Start Date Expiration Date Visits Requested Visits Authorized [id number] Authorized Specialty Services Required 01/09/2025 999 [id number] Question Answer Referral Priority Within 10 days (routine) Where should this appointment be scheduled? [facility] Reason for Referral? Other Comments Admitted with RSV infection and pulmonary started Symbicort and recommended to f/u with pulmonary and have PFTs Reason for Visit * Reason Onset Date Comments Hospital Follow-Up Hospital Follow-Up 01/09/2025 Encounter Details Date Type Department Care Team (Late st Contact Info) Description 01/09/2025 2:20 PM EDT Office Visit Family Medicine [address] [place] [phone] Neo Han MD [address] [place] [address] [place] [id number] Hospital discharge follow-up*; History of RSV infection; Chronic systolic congestive heart failure (HCC); RSV bronchiolitis; Community acquired pneumonia, unspecified laterality; SOB (shortness of breath); Pulmonary hypertension (HCC); Coronary artery disease involving [place] coronary artery of [place] heart without angina pectoris; Type 2 diabetes mellitus with hemoglobin A1c goal of less than 8.0% ([facility]); S/P drug eluting coronary stent placement; Apical mural thrombus Allergies Active Allergy Reactions Criticality Noted Date Comments Niacin 01/07/2022 Other reaction(s): ITCHY SPLOTCHY RASH Niacin Er (Antihyperlipidemic) Flushing 09/04/2010 documented as of this encounter (statuses as of 01/10/2025) Medications FIBER FORMULA PO CAPS Take 1 Cap by mouth daily. Active LANCETS MISCIndications :Diabetes mellitus type 2, diet-controlled (HCC) Use once daily as directed Dx 250.00 1 Box 5 013 Active Cyanocobalamin (VITAMIN B-12) 1000 MCG Tablet Take 1 Tablet by mouth in the morning. 019 Active Blood Glucose Monitoring Suppl ([employer] VERIO) w/Device KIT Test daily E11.9 1 Kit 020 Active Bgiftyuch UltraSoft LancetsIndicati ons:Type 2 diabetes mellitus with hemoglobin A1c goal of less than 8.0% ([facility]) Test daily. E11.9 100 Each 1 021 Active Acetaminophen 325 MG Oral Tablet (Tylenol) Take 2 Tablets by mouth every 6 hours as needed. 022 Active Advanced Probiotic Oral Capsule Take by mouth 2 Capsules daily . For 10 days Active Studio [employer] In Vitro Strip (Glucose Blood)Indicatio ns:Type 2 diabetes mellitus with hemoglobin A1c goal of less than 8.0% (HCC) Test daily E11.9 100 Strip 1 022 Active Clopidogrel Bisulfate 75 MG Oral Tablet (pLAVix) Take 1 Tablet by mouth. In the morning. 024 Active Atorvastatin Calcium 40 MG Oral Tablet (Lipitor)Indica tions:Dyslipide angelita, goal LDL below 100 TAKE ONE TABLET DAILY 90 Tablet 2 08/30/2 024 Active Citalopram Hydrobromide 40 MG Oral Tablet (CeleXA)Indicat ions:Major depressive disorder, recurrent, in partial remission (HCC) TAKE 1 TABLET BY MOUTH IN THE MORNING 90 Tablet 3 024 Active Pantoprazole Sodium 40 MG Oral Tablet Delayed Release (Protonix) TAKE ONE TABLET BY MOUTH EVERY MORNING 90 Tablet 1 024 Active Ozempic (0.25 or 0.5 MG/DOSE) 2 MG/3ML Solution Pen-injector (Semaglutide(0. 25 or 0.5MG/DOS)) Inject 0.5 mg under the skin once a week. 3 mL 5 024 Active Warfarin Sodium 3 MG Oral Tablet (Coumadin) Take 1-2 tablets by mouth daily as directed by anticoagulation clinic 60 Tablet 5 024 Active traZODone HCl 50 MG Oral Tablet (Desyrel)Indica tions:Primary insomnia Take 1 Tablet by mouth at bedtime. 90 Tablet 1 024 Active Sildenafil Citrate 100 MG Oral Tablet (Viagra)Indicat ions:Impotence of organic origin One tablet as needed for erectile dysfunction 6 Tablet 6 025 Active Levothyroxine Sodium 25 MCG Oral Tablet (Levoxyl)Indica tions:Hypothyro idism Take 1 Tablet by mouth in the morning. (at least 30 min prior to breakfast or other meds). 90 Tablet 1 025 Active Ondansetron HCl 4 MG Oral TabletIndicatio ns:Viral illness Take 1 Tablet by mouth every 8 hours as needed for Nausea. 21 Tablet 025 Active Albuterol Sulfate HFA 108 (90 Base) MCG/ACT Inhalation Aerosol SolutionIndicat ions:Pneumonia of both lower lobes due to infectious organism Inhale 2 Puffs by mouth every 6 hours as needed for Shortness of Breath or Wheezing. 6.7 g 025 Active Fenofibrate Micronized 134 MG Oral CapsuleIndicati ons:Lipoprotein deficiency Take 1 Capsule by mouth in the morning. 90 Capsule 1 025 Active Budesonide-Form oterol Fumarate 160-4.5 MCG/ACT Inhalation Aerosol (Symbicort) Inhale 2 Puffs by mouth in the morning and 2 Puffs before bedtime. Active guaiFENesin ER 600 MG Oral Tablet Extended Release 12 Hour (Humibid LA) Take 1 Tablet by mouth in the morning and 1 Tablet before bedtime. Active Magnesium Oxide 400 MG Oral Tablet Take 1 Tablet by mouth in the morning. Active Metoprolol Succinate ER 50 MG Oral Tablet Extended Release 24 Hour (toPROL XL) Take 0.5 Tablets by mouth in the morning. Active Enalapril Maleate 2.5 MG Oral Tablet (Vasotec) Take 1 Tablet by mouth in the morning and 1 Tablet before bedtime. HOLD OF 01/09/25 DUE TO HYPOTENSION AND F/U WITH CARDIOLOGY. Active Metoprolol Succinate ER 50 MG Oral Tablet Extended Release 24 Hour (toPROL XL) Take 1 Tablet by mouth in the morning. 90 Tablet 3 2024 Discontinued Enalapril Maleate 2.5 MG Oral Tablet (Vasotec) TAKE ONE TABLET TWICE DAILY 180 Tablet 3 2024 Discontinued predniSONE 10 MG Oral Tablet (Deltasone)Wanda cations:Pneumon ia of both lower lobes due to infectious organism Take 5 tabs for 2 days, 4 tabs for 2 days, 3 tabs for 2 days, 2 tabs for 2 days 1 tab for 2 days 30 Tablet 2024 Discontinued Cefuroxime Axetil 500 MG Oral Tablet (Ceftin) Take 1 Tablet by mouth in the morning and 1 Tablet before bedtime. 2024 Discontinued Doxycycline Hyclate 100 MG Oral Capsule Take 1 Capsule by mouth in the morning and 1 Capsule before bedtime. 2024 Discontinued predniSONE 20 MG Oral Tablet (Deltasone) Take 1 Tablet by mouth in the morning. As directed. 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 ([facility]) 01/11/2023 Systolic congestive heart failure 01/11/2023 S/P drug eluting coronary stent placement 2022 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 Coronary artery disease invo lving [place] coronary artery of [place] heart without angina pectoris 01/11/2023 Incisional hernia, [...] as of this encounter (statuses as of 01/10/2025) Resolved Problems Problem Noted Date Diagnosed Date [...] as of this encounter (statuses as of 01/10/2025) Immunizations Name Administration Dates Next Due COVID-19 mRNA, LNP-s, No Pre serve, 2-Dose Series ([employer]) 08/12/2021,12/28/2020,12/02/2020 COVID-19, MRNA-LNP, PF, 30 M CG/0.3 mL, 12 YRS AND ABOVE, IM ([facility]) 07/30/2023 Covid-19, Mrna, Lnp-s, Pf, B ivalent, [...] Sign Reading Time Taken Comments Blood Pressure 88/50 01/09/2025 2:24 PM EDT Pulse 62 01/09/2025 2:24 PM EDT Temperature 36.1 °C (97 °F) 01/09/2025 2:24 PM EDT Respiratory Rate - - Oxygen Saturation 96% 01/09/2025 2:24 PM EDT Inhaled Oxygen Concentration - - Weight 89.4 kg (197 lb) 01/09/2025 2:24 PM EDT Height 170.2 cm (5' 7") 01/09/2025 2:24 PM EDT Body Mass Index 30.85 01/09/2025 2:24 PM EDT documented in this encounter Patient Instructions * Patient Instructions* Neo Han MD - 01/09/2025 2:37 PM EDT Taking Medicine Safely Medicine is given to help treat or prevent illness. But if you don't take it correctly, it might not help. It might even harm you. Your doctor or pharmacist can help you learn the right way to take your medicine. Listed below are some tips to help you take medicine safely. Safety Tips Have a routine for taking each medicine. Make it part of something you do each day, such as brushing your teeth or eating a meal. When you go to the hospital or your doctor's office, bring all your current medicines in their original boxes or bottles. If you can't do that, bring an up-to-date list of your medicines. Do not stop taking a prescription medicine unless your doctor tells you to. Doing so could make your condition worse. Do not share medicines. Let your doctor and pharmacist know of any allergies you have. Taking prescription medicines with alcohol, street drugs, herbs, supplements, or even some xrqk-qhr-nykyfcj medicines can be harmful. Talk to your doctor or pharmacist before using any of these things while taking a prescription medicine. When filling your prescriptions, try using the same pharmacy for all your medicines. If not, let the pharmacist know what medicines you are already on. Keep medicines out of the reach of children and pets. Do not use medicine that has or that doesn't look or smell right. Get rid of it properly. To find out the right way to get rid of medicine: Call your [facility] or [facility] government's household trash and recycling service and ask if a drug take-back program is available in your community. Call your local pharmacy and ask the right way to get rid of the medicine. Go to http://www.fda.gov/ForConsumers/ConsumerUpdates/qym697470 to learn how to get rid of medicines safely. Using Generic Medicines Medicines have brand names and generic (chemical) names. When a medicine is first made, it is sold only under its brand name. Later, it can be made and sold as a generic. Generic medicines cost less than brand-name medicines and most work just as well. Most people can use the generic medicine instead of the brand-name medicine, unless their doctor says otherwise. © 7707-1395 Ella Ibarra, [address] [place] [address], [place] [address]. All rights reserved. This information is not intended as a substitute for professional medical care. Always follow your healthcare professional's instructions. Coping with Your Diagnosis of a Chronic Health Condition If you have a chronic health condition, you have a problem that may not go away over time. Heart disease, asthma, arthritis, and diabetes are just a few of the chronic conditions that exist. Right now, these conditions have no known cure. But you can take an active role in managing your health. Coping with Your Diagnosis If you've just learned about your health condition, you may be angry, depressed, or afraid. Or you might feel relieved just to know what's wrong. Even if you've known about your health problem for a while, adjusting to it can be hard. But learning about your condition can help you cope. Look for books at your local library. If you have access to a computer, check the Internet. Or contact a group that focuses on your specific problem. Accepting Change Change is hard for most people. Yet right now you may be facing many changes. What you eat or the way you work may change. Your moods, and even your symptoms, might vary from day to day. Although it isn't easy, learning to accept change can help you feel more in control. Taking Control Feeling you have control can make living with your condition easier. Discuss treatment options withyour health care provider. The more you know, the more active you can be in your care. Moving Forward You may wonder whether you will be able to do the things you've always done. That depends on your age, the condition you have, and your goals. To make the most of each day, try to build caring relationships, be active, and eat right. Also, do your best to keep a sense of humor. © 1283-3669 [facility], [address] [place] [address], [place] [address]. All rights reserved. This information is not intended as a substitute for professional medical care. Always follow your healthcare professional's instructions. Taking an Active Role in Your Medicines Take the time to learn about your medicine. For instance, why are you taking it? What does it do? Work with your doctor or other health care providers to get the answers you need. Talk to your pharmacist about how to take each medicine, and ask for a fact sheet on each one. Ask Questions About Your Medicine What is the name of the medicine? Why do I need to take it? When should I take it? How should I take it: with water? with food? on an empty stomach? How much do I take? What do I do if I miss a dose? What side effects could it cause and which ones should I call the doctor about? Are there any foods or medicines I should avoid while taking this medicine? Keeping track of your medications? Name of medicine: Taken for: Dose: Time(s) to take it: Take an Active Role Fill all your prescriptions at the same pharmacy. This keeps your medicine history in one place. Talk to the pharmacist. Make sure you understand how to take each medicine. Ask for a fact sheet about each one. Tell your doctor and pharmacist about all the prescription and ramt-zkz-sxmfjrx medicines you take.This includes vitamins and herbal remedies. Tell your doctor and pharmacist if you have any medical conditions or allergies to any medicine or food, or if you are or . Keep a list of all your medicines. Use the sample to the right as a guide for the type of information needed. © 4253-5166 Ella Ibarra, [address] [place] [address]. All rights reserved. This information is not intended as a substitute for professional medical care. Always follow your healthcare professional's instructions. documented in this encounter Progress Notes * Neo Han MD - 01/09/2025 2:36 PM EDT SUBJECTIVE: Juanito Yoon is a 79 year old male. Chief Complaint Patient presents with Hospital Follow-Up Hospital Follow-Up Recent Admission: Patient was recently admitted to [facility] on 12/28/24. The date of discharge was 01/01/25. Discharge report received and reviewed. HPI: Brief Clinical History Mr. Yoon is a 79 year old male last seen in Family Medicine [facility] on 12/28/2024 by Mukesh Hernández He has a h/o the following chronic conditions indicated on the problem list: Chronic Conditions Cirrhosis of liver (HCC) Type 2 diabetes mellitus with hemoglobin A1c goal of less than 8.0% (HCC) Admitted to [facility] 12/29/24-01/01/25 with SOB, MARC, and cough for 2 weeks. He was seen here 12/28/24 andstarted on Augmentin, Zithromax, prednisone and albuterol. He got worse and presented to the ED later the same day. His was also admitted with RSV shortly before patient was. In the ED, he tested positive for RSV. CT angio of the chest was negative for PE and showed very small bilateral layering pleural effusions, limited due to respiratory motion, and atelectasis in the lower and right upper lobes as well as diffuse airway thickening. Findings most concerning for CHF and a chronic infectious bronchitis also considered. WBC were normal. He was tachycardic and tachypneic. He was admitted and started on Duonebs, ceftriaxone, azithromycin, and prednisone. He was given gentle diuresis. Patient developed worsening SOB, wheezing and chest discomfort on 12/29/24. He was transferred and pulmonary medicine was consulted. He was started on Symbicort and recommended to follow-up with pulmonary as an outpatient and have PFTs. Patient has remote smoking history. Blood cultureswere negative. He was discharged to complete prednisone, doxycycline, and cefuroxime. Patient had CXR consistent with pulmonary edema, however, it was felt that patient was intravascularly dry and had no JVD and that he was not in acute CHF. He BNP was 611. He had an echo done, which showed moderate to severe global hypokinesis of the left ventricle and EF of 25-30% (previously had been 40% on most recent outpatient echo on 05/09/24). His pulmonary arterial pressure was 30- 40 mmHg.Patient missed his regular cardiology appointment due to admission. Recommended to reschedule afterdischarge but not seen by cardiology while admitted. [place] to have myocardial injury secondary to RSV. Troponin was 49 in ED. Is still feeling very weak and tired. Completed antibiotics and steroids. Feeling dizzy and weak. Has not been checking his blood pressure at home and did not realize how low it was. Is taking his enalapril 2.5 mg twice daily and metoprolol succinate in the morning. Is eating and drinking OK. Was recommended to follow-up with pulmonary. Was begun on Symbicort by pulmonary while admitted andrecommended to follow-up with outpatient pulmonary and for PFTs. No h/o asthma or COPD. Quit smoking about 20 years ago. Head is still congested. Chest congestion is better. Is no longer taking Mucinex but it was helpinghis congestion. States his shortness of breath is much better. Results for orders placed or performed in visit on 12/19/24 COMPREHENSIVE METABOLIC PANEL Result Value Ref Range BUN 22 (H) 6 - 20 mg/dL CREATININE 1.0 0.6 - 1.2 mg/dL EGFR 82 >=60 mL/min SODIUM 142 135 - 146 mmol/L POTASSIUM 4.3 3.5 - 5.1 mmol/L CHLORIDE 107 98 - 107 mmol/L CO2 21 (L) 22 - 32 mmol/L ANION GAP 14 7 - 15 mmol/L GLUCOSE 97 70 - 120 mg/dL Albumin 4.3 3.8 - 5.0 g/dL AST 20 10 - 50 U/L Alkaline Phosphatase 66 35 - 130 U/L Bilirubin, Total 0.6 <=1.2 mg/dL CALCIUM 9.1 8.4 - 10.2 mg/dL Protein 6.4 6.0 - 8.3 g/dL ALT 10 10 - 50 U/L HEMOGLOBIN A1C Result Value Ref Range Hemoglobin A1C 5.7 (H) 4.0 - 5.6 % Estimated Average Glucose 117 <126 mg/dL ANEMIA CBC Result Value Ref Range WBC 6.56 4.00 - 10.80 K/uL RBC 4.40 4.50 - 5.25 M/uL HGB 13.4 (L) 14.0 - 16.8 g/dL HCT 41.4 40.0 - 48.4 % MCV 94.1 82.0 - 99.5 fL MCH 30.5 27.0 - 34.0 pg MCHC 32.4 32.0 - 36.0 g/dL RDW 13.9 11.5 - 15.5 % PLT 130 (L) 140 - 400 K/uL MPV 13.0 6.6 - 11.1 fL nRBCs 0 <=0 /100 WBCs DIFFERENTIAL, AUTOMATED Result Value Ref Range WBC 6.56 4.00 - 10.80 K/uL Neutrophils % 63.4 40.0 - 75.0 % Lymphocytes % 23.6 18.0 - 42.0 % Monocytes % 7.5 1.0 - 11.0 % Eosinophils % 3.5 0.0 - 6.0 % Basophils % 1.7 0.0 - 2.0 % Immature Granulocytes % 0.3 0.0 - 2.0 % Absolute Neutrophils 4.16 1.80 - 7.70 K/uL Absolute Lymphocytes 1.55 1.00 - 4.80 K/ul Absolute Monocytes 0.49 0.00 - 1.10 K/uL Absolute Eosinophils 0.23 0.00 - 0.70 K/uL Absolute Basophils 0.11 0.00 - 0.20 K/uL Absolute Immature Granulocytes 0.02 0.00 - 0.20 K/uL *Note: Due to a large number of results and/or encounters for the requested time period, some results have not been displayed. A complete set of results can be found in Results Review. Patient Active Problem List Diagnosis Cyst of [...] Apical mural thrombus Coronary artery disease involving [place] coronary artery of [place] heart without angina pectoris Chronic ischemic heart disease HTN, goal below 130/80 Frequent PVCs Pulmonary hypertension (HCC) Current Outpatient Medications Medication Sig Dispense Refill FIBER FORMULA PO CAPS Take 1 Cap by mouth daily. LANCETS MISC Use once daily as directed Dx 250.00 1 Box 5 Cyanocobalamin (VITAMIN B-12) 1000 MCG Tablet Take 1 Tablet by mouth in the morning. Blood Glucose Monitoring Suppl ([employer] VERIO) w/Device KIT Test daily E11.9 1 Kit 0 upurskillTouch UltraSoft Lancets Test daily. E11.9 100 Each 1 Acetaminophen 325 MG Oral Tablet (Tylenol) Take 2 Tablets by mouth every 6 hours as needed. Advanced Probiotic Oral Capsule Take by mouth 2 Capsules daily . For 10 days Bgiftyuch [employer] In Vitro Strip (Glucose Blood) Test daily [...] mouth in the morning. 90 Capsule 1 Budesonide-Formoterol Fumarate 160-4.5 MCG/ACT Inhalation Aerosol (Symbicort) Inhale 2 Puffs by mouth in the morning and 2 Puffs before bedtime. guaiFENesin ER 600 MG Oral Tablet Extended [...] DUE TO HYPOTENSION AND F/U WITH CARDIOLOGY. No current facility-administered medications for this visit. Current and discharge medications have been reconciled. Review of patient's allergies indicates: Allergen Reactions Niacin Other reaction(s): ITCHY SPLOTCHY RASH Niaspan [Niacin Er (Antihyperlipidemic)] Flushing OBJECTIVE: BP 88/50 | Pulse 62 | Temp 97 °F (36.1 °C) (Tympanic) | Ht 5' 7" (1.702 m) | Wt 197 lb (89.4 kg) | SpO2 96% | BMI 30.85 kg/m² | BSA 2.06 m² Review Of Systems: Skin: pt denies, new or changing moles, pigmentation change, rash, scaling, itching, bruising, lumps or bumps, hair changes, nail changes Eyes: negative Ears/Nose/Throat: pt denies:, deafness, vertigo, frequent URI's, +recent RSV infection as above Respiratory: +as per HPI Cardiovascular: + as per HPI Gastrointestinal: pt. denies:, abdominal pain, bloating or excess gas, dysphagia, nausea, heartburn, blood in stool or black stools, constipation or change in bowel habits, diarrhea Genitourinary: pt denies:, nocturia, dysuria, and frequency Musculoskeletal: +OA Neurologic: pt denies:, headaches, syncope, and seizures Psychiatric: pt denies:, sleep disturbance, anxiety, nervousness, and depression Hematologic/Lymphatic/Immunologic: pt denies:, recurrent infections, immunodeficiency, anemia, bruising, bleeding disorder, fever, night sweats, chills, and weight loss Endocrine: pt denies:, thyroid disorder, cold intolerance, heat intolerance, and + diabetes PHYSICAL EXAM: General: alert, no distress, well nourished, well developed, and appears tired Head: Normocephalic, No masses, lesions, tenderness or abnormalities Eye Exam: PERRLA, extraocular movements intact, conjunctiva are pink and non- injected, sclera clear Ears: External ears normal, Canals clear, TM's Normal Nose: no mucosal erythema, no mucosal edema, no purulent discharge Oropharynx: no exudate, no erythema, lips, buccal mucosa, and tongue normal, and mucous membranes are moist Neck: supple, no adenopathy, no bruits Heart: regular rate & rhythm, no gallops, and distant heart tones with rare ectopy Lungs: chest symmetric with normal AP diameter, no chest deformities noted, no chest wall tenderness, lungs clear to auscultation Extremities: no edema, no clubbing, no cyanosis Neuro Exam: alert & oriented x 3 with fluent speech, no focal motor/sensory deficits, gait normal ASSESSMENT: Hospital discharge follow-up (Primary) - DISCH MED RECON CUR MED LIS History of RSV infection--resolved. Patient with shortness of breath wheezing, bronchiolitis and pneumonia. Remote smoking history. Was started on Symbicort and recommended by pulmonary to follow-up as outpatient. Placed referral. - PULMONARY REFERRAL OP Chronic systolic congestive heart failure (HCC)--patient with newly reduced EF of 25-30% on echo while admitted with moderate to severe LV hypokinesis. Was given gentle diuresis. No edema today and reports shortness of breath improved. However, he is feeling weak, tired, lightheaded and he is hypotensive. Hold enalapril, reduce metoprolol succinate to 25 mg daily and patient states he can check BP at home. Will call with update. Will also get scheduled MIKIE for cardiology follow-up, especially given echo changes. RSV bronchiolitis--completed prednisone. Community acquired pneumonia, unspecified laterality--completed antibiotics. Feels his breathing and cough/congestion are improved. SOB (shortness of breath)--as above. - PULMONARY REFERRAL OP Pulmonary hypertension (HCC)--seen on echo. Follow-up with cardiology and pulmonary as above. Coronary artery disease involving [place] coronary artery of [place] heart without angina pectoris--continue aspirin 81 mg daily, statin, beta maritza. Has h/o stent placement. Type 2 diabetes mellitus with hemoglobin A1c goal of less than 8.0% ([facility] [facility])--continue Ozempic. Last A1C was 5.7. S/P drug eluting coronary stent placement--as above. Apical mural thrombus--continue Coumadin. Check-out note: Schedule with cardiology MIKIE for hospital f/u and overdue for regular f/u. Newly reduced EF of 25-30% PLAN: Continue present medication(s): Discontinue medication(s): hold enalapril due to hypotension Change dose of medication(s) to Reduce metoprolol succinate to 25 mg daily due to hypotension Referral(s) to: Pulmonary and schedule follow-up MIKIE with cardiology for hospital follow-up and newly reduced EF. Patient education: Discussed BP monitoring and to call if remains low. Return to ED with any chest pain, shortness of breath, or severe lightheaded. Discussed need for cardiology follow-up. Discussedpulmonary referral. Follow up as scheduled. I spent a total of 40-54 minutes (exact time 45 mins) minutes on the date of service in preparation, delivery, and documentation of the care provided to Juanito Yoon excluding any time spent in performance of separately billed services. Neo Han MD documented in this encounter Nursing Notes * Fannie Ji LPN - 01/09/2025 2:25 PM EDT Hospital follow up He needs to follow up with pulmonology and he has to reschedule his cardiology appointment while heis here. documented in this encounter Plan of Treatment Upcoming Encounters Date Type Department Care Team (Late st Contact Info) Description 01/11/2025 9:50 AM EDT Anticoagulation Pharmacy, [address] [place] [address] [place] [address] 01/16/2025 11:00 AM EDT Office Visit Pulmonary Medicine, [facility] [address] [place] [phone] Rodolfo Mcneil MD [address] [facility] [place] [address] 01/24/2025 11:00 AM EDT Office Visit Gastroenterology, [facility] [address] [place] [phone] Berenice Montano CRNP [address] [place] [address] 07/17/2025 1:40 PM EDT Office Visit Family Medicine [address] [place] [phone] Neo Han MD [address] [place] [address] [place] [address] Scheduled Procedures Name Priority Associated Diagnoses Date/Ti me ESOPHAGOGASTRODUODENOSCOPY ( EGD), FLEXIBLE, TRANSORAL, DIAGNOSTIC Recall Portal hypertensive gastropathy (HCC) Scheduled Referrals Name Type Priority Associated Diagnoses Orde r Schedule PULMONARY REFERRAL OP Referral Within 10 days (routine) History of RSV infection SOB (shortness of breath) Ordered: 01/09/2025 Health Maintenance Due Date Last Done Comments [...] as of this encounter Visit Diagnoses Diagnosis Hospital discharge follow-up- Primary Other follow-up examination History of RSV infection Personal history of other infectious and parasitic disease Chronic systolic congestive heart failure (HCC) Chronic systolic heart failure RSV bronchiolitis Acute bronchiolitis due to respiratory syncytial virus (RSV) Community acquired pneumonia, unspecified laterality SOB (shortness of breath) Shortness of breath Pulmonary hypertension (HCC) Other chronic pulmonary heart diseases Coronary artery disease involving [place] coronary artery of [place] heart without angina pectoris Type 2 diabetes mellitus with hemoglobin A1c goal of less than 8.0% (HCC) S/P drug eluting coronary stent placement Postsurgical percutaneous transluminal coronary angioplasty status Apical mural thrombus Acute myocardial infarction of [...] 2:54 PM 12/14/2007 5:34 PM Care Teams Retail Marketing Coordinator Relationship Specialty Start Date End Date Neo Han MD [address] [place] [address] [place] [address] PCP - General Family Medicine 07/19/13 documented as of this encounter
--- OUTSIDE RECORDS SUMMARY | 2025-01-24 23:15 | External Medical Summary | Summary of Care ---
Author Name Unknown Organization [facility] Address [address] [place] [address] Phone [phone] Care Team Providers Care Plumber Assistant Name Role Phone Neo Han MD Primary Care Provide r Encounter Details Date Type Department Care Team (Late st Contact Info) Description 12/29/2024 Orders Only Pulmonary Medicine Lino Humphreys [address] [place] [phone] Rodolfo Mcneil MD [address] [place] [address] Allergies Active Allergy Reactions Criticality Noted Date [...] Capsules daily . For 10 days Active [employer] Rossana In Vitro Strip (Glucose Blood)Indication s:Type 2 [...] as needed for Nausea. 21 Tablet 12/20/19 Active Albuterol Sulfate HFA 108 (90 Base) MCG/ACT Inhalation Aerosol SolutionIndicati ons:Pneumonia of both lower lobes due to infectious organism Inhale 2 Puffs by mouth every 6 hours as needed for Shortness of Breath or Wheezing. 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 ([facility]) 01/11/2023 Systolic congestive heart failure 01/11/2023 S/P drug eluting coronary stent placement 2022 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 Coronary artery disease invo lving [place] coronary artery of [place] heart without angina pectoris 01/11/2023 Incisional hernia, [...] 01/24/2025 11:00 AM EDT Office Visit Gastroenterology, [facility] [address] [place] [phone] Berenice Montano CRNP [address] [place] [address] 01/25/2025 10:00 AM EDT PulmDiagnostic Pulmonary Function Lab, [facility] [address] [place] [phone] [place], [address] [place] [address] 02/08/2025 9:20 AM EDT Anticoagulation Pharmacy, [address] [place] [address] [place] [address] 02/13/2025 9:30 AM EDT Office Visit Cardiology, [facility] [address] [place] [phone] Jh Brownlee PAOneal [address] [place] [address] 02/27/2025 3:00 PM EDT Office Visit Pulmonary Medicine, [facility] [address] [place] [address] Rodolfo Mcneil MD [address] [facility] [place] [address] 07/17/2025 1:40 PM EDT Office Visit Family Medicine [address] [place] [phone] Neo Han MD [address] [place] [address] [place] [address] Scheduled Procedures Name Priority Associated Diagnoses Date/Ti [...] Procedure Name Priority Date/Time Associated Diagnosis Comments RADIOLOGY EXAM - GENERAL RAD (IMAGES ONLY,NO REPORT) Routine 12/29/2024 2:10 PM EDT documented in this encounter Results * RADIOLOGY EXAM - GENERAL RAD (IMAGES ONLY,NO REPORT) (12/29/2024 2:10 PM EDT) 12/29/2024 2:09 PM EDT Narrative Scheduling, Silent - 01/16/2025 10:50 AM EDT This is an imaging study not interpreted or resulted by a [facility] or [facility] contracted radiologist. Rodolfo Mcneil MD RADIOLOGY (RAD GENERAL ) Final Result documented in this encounter Advance Directives * [...] 2:54 PM 12/14/2007 5:34 PM Care Teams Plumber Assistant Relationship Specialty Start Date End Date Neo Han MD [address] [place] [address] [place] [address] PCP - General Family Medicine 07/19/13 documented as of this encounter
--- OUTSIDE RECORDS SUMMARY | 2025-01-24 23:15 | External Medical Summary | Summary of Care ---
Author Name Unknown Organization [facility] Address [address] [place] [address] Phone [phone] Care Team Providers Care Pattern Drafter Name Role Phone Neo Han MD Primary Care Provide r Reason for Visit * Reason Comments Dosage Adjustment In Person (Anticoag Cl inic) Encounter Details Date Type Department Care Team (Latest Contact Info) Description 01/11/2025 9:50 AM EDT Anticoagulation Pharmacy, [address] [place] [address] [place] [address] Chronic ischemic heart disease*; HTN, goal below 130/80; Frequent PVCs; Apical mural thrombus; Anticoagulation management encounter Allergies Active Allergy Reactions Criticality Noted Date Comments Niacin 01/07/2022 Other reaction(s): ITCHY SPLOTCHY RASH Niacin Er (Antihyperlipidemic) Flushing 09/04/2010 documented as of this encounter (statuses as of 01/11/2025) Medications FIBER FORMULA PO CAPS Take 1 Cap by mouth daily. Active LANCETS MISCIndications: Diabetes mellitus type 2, diet-controlled (HCC) Use once daily as directed Dx 250.00 1 Box 5 07/24/20 13 Active Cyanocobalamin (VITAMIN B-12) 1000 MCG Tablet Take 1 Tablet by mouth in the morning. 05/16/20 19 Active Blood Glucose Monitoring Suppl (EveryScapeTOUCH VERIO) w/Device KIT Test daily E11.9 1 [...] Capsules daily . For 10 days Active [employer] In Vitro Strip (Glucose Blood)Indication s:Type 2 [...] of Breath or Wheezing. 6.7 g 12/29/19 Active Fenofibrate Micronized 134 MG Oral CapsuleIndicatio ns:Lipoprotein deficiency Take 1 Capsule by mouth in the morning. 90 Capsule 1 01/04/20 Active Budesonide-Formo terol Fumarate 160-4.5 MCG/ACT Inhalation Aerosol (Symbicort) Inhale 2 Puffs by mouth in the morning and 2 Puffs before bedtime. 01/01/20 Active guaiFENesin ER 600 MG Oral Tablet Extended Release 12 Hour (Humibid LA) Take 1 Tablet by mouth in the morning and 1 Tablet before bedtime. 01/02/20 Active Magnesium Oxide 400 MG Oral Tablet Take 1 Tablet by mouth in the morning. 01/02/20 Active Metoprolol Succinate ER 50 MG Oral Tablet Extended Release 24 Hour (toPROL XL) Take 0.5 Tablets by mouth in the morning. 01/10/20 Active Enalapril Maleate 2.5 MG Oral Tablet (Vasotec) Take 1 Tablet by mouth in the morning and 1 Tablet before bedtime. HOLD OF 01/09/25 DUE TO HYPOTENSION AND F/U WITH CARDIOLOGY. 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 ([facility]) 01/11/2023 Systolic congestive heart failure 01/11/2023 S/P drug eluting coronary stent placement 2022 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 Coronary artery disease invo lving [place] coronary artery of [place] heart without angina pectoris 01/11/2023 Incisional hernia, [...] as of this encounter (statuses as of 01/11/2025) Resolved Problems Problem Noted Date Diagnosed Date [...] as of this encounter (statuses as of 01/11/2025) Immunizations Name Administration Dates Next Due COVID-19 mRNA, LNP-s, No Pre serve, 2-Dose Series (BRAINDIGIT) 08/12/2021,12/28/2020,12/02/2020 COVID-19, MRNA-LNP, PF, 30 M CG/0.3 mL, 12 YRS AND ABOVE, IM (Oxynade-Comirnat) 07/30/2023 Covid-19, Mrna, Lnp-s, Pf, B ivalent, [...] as of this encounter Progress Notes * Zaheer Garnica [facility] - 01/11/2025 9:49 AM EDT Images from the original note were not included. Medication Therapy Disease Management - Anticoagulation Patient: Juanito Yoon | : 1945 Subjective Contacts Contact Date/Time Type Contact Phone/Fax 01/04/2025 08:08 AM EDT Text Message (Outgoing) [phone] [facility]: Juanito, you have an upcoming visit on 01/11 at 9:50 AM. Details: [email or web address] Reply 14 to confirm or 34 to cancel. Reply STOP to opt out. 01/08/2025 08:13 AM EDT Text Message (Outgoing) [phone] [facility]: Juanito, you have an upcoming visit on 01/11 at 9:50 AM. Details: [email or web address] Reply 12 to confirm or 32 to cancel. Reply STOP to opt out. 01/10/2025 08:08 AM EDT Text Message (Outgoing) [phone] [facility]: jon Solomon have an upcoming visit on 01/11 at 9:50 AM. Details: [email or web address] Reply 1 to confirm or 3 to cancel. Reply STOP to opt out. Patient-Reported Symptoms: Patient Findings Positives: Change in health (He was in [facility] for RSV.), Change in medications (He was on antibioticsin [facility] and was discharged home on one.) Negatives: Signs/symptoms of thrombosis, Signs/symptoms of bleeding, Change in alcohol use, Change in activity, Upcoming invasive procedure, Missed doses, Extra doses, Change in diet/appetite, Bruising [facility] labs: New prednisone 20 mg tablet Take 2 tabs for next 3 days, then take 1 tab for 4 days doxycycline hyclate 100 mg Capsule 100 mg PO BID for 2 days cefuroxime axetil 500 mg tablet 500 mg PO BID for 1 day Objective Current Warfarin Dose As of 01/11/2025 Warfarin maintenance plan: 3 mg (3 mg x 1) every Mon, Wed, Fri; 6 mg (3 mg x 2) all other days INR Result As of 01/11/2025 INR goal: 2.0-3.0 INR used for dosin.3 (01/11/2025) Assessment & Plan Warfarin Plan As of 01/11/2025 Full warfarin instructions: 01/11: Hold; Otherwise 3 mg every Mon, Wed, Fri; 6 mg all other days Next INR check: 02/08/2025 Repeat PT/INR in 4 week(s) Weekly dose: not changed Additional Dosing Information: I spent a total of 10-19 minutes (exact time 18 mins) on the date of service in preparation, delivery, and documentation of the care provided to Juanito Yoon excluding any time spent in the performance of separately billed services or time spent by another provider/QHP. Zaheer Guaman RPh Clinical Pharmacist 01/11/2025, 9:56 AM documented in this encounter Plan of Treatment Upcoming Encounters Date Type Department Care Team (Late st Contact Info) Description 01/16/2025 11:00 AM EDT Office Visit Pulmonary Medicine, [facility] [address] [place] [phone] Rodolfo Mcneil MD [address] [facility] [place] [address] 01/24/2025 11:00 AM EDT Office Visit Gastroenterology, [facility] [address] [place] [phone] Berenice Montano CRNP [address] [place] [address] 02/08/2025 9:20 AM EDT Anticoagulation Pharmacy, [address] [place] [address] [place] [address] 07/17/2025 1:40 PM EDT Office Visit Family Medicine [address] [place] [phone] Neo Han MD [address] [place] [address] [place] [address] Scheduled Procedures Name Priority Associated Diagnoses Date/Ti [...] Comments INR FINGERSTICK, POINT OF CARE STAT 01/11/2025 9:51 AM EDT Chronic ischemic heart disease HTN, goal below 130/80 Frequent PVCs Apical mural thrombus Anticoagulation management encounter documented in this encounter Results * INR FINGERSTICK, POINT OF CARE (01/11/2025 9:51 AM EDT) Fingerstick INR 4.3 INR 10:44 AM EDT [facility] Blood 01/11/2025 9:51 AM EDT 01/11/2025 10:44 AM EDT Narrative [facility] - 01/11/2025 10:44 AM EDT Therapeutic ranges for non-operative patients: Prophylaxsis/treatment of DVT: (Range:2.0-3.0) Treatment of pulmonary embolism:(Range:2.0-3.0) Prevention of systemic embolism from: -tissue heart valves -acute myocardial infarction -valvular heart disease -atrial fibrillation (Range: 2.0-3.0) Mechanical prosthetic valves: (Range: 2.5-3.5) Carlota Walton [facility] LAB POINT OF CARE TEST DOCKED DEVICE UNSOLICITED RESULTS Final Result [facility] [address] [place] [address] [place] [address] documented in this encounter Visit Diagnoses Diagnosis Chronic ischemic heart disease- Primary Chronic ischemic heart disease, unspecified HTN, goal below 130/80 Unspecified essential hypertension Frequent PVCs Other premature beats Apical mural thrombus Acute myocardial infarction of other anterior wall, episode of care unspecified Anticoagulation management encounter Encounter for therapeutic drug monitoring documented in this encounter Advance Directives * [...] 2:54 PM 12/14/2007 5:34 PM Care Teams Pattern Drafter Relationship Specialty Start Date End Date Neo Han MD [address] [place] [address] [place] [address] PCP - General Family Medicine 07/19/13 documented as of this encounter"
--- OUTSIDE RECORDS SUMMARY | 2025-01-24 23:15 | External Medical Summary | Summary of Care ---
Author Name Unknown Organization [facility] Address [address] [place] [address] Phone [phone] Care Team Providers Care Glass Cutter Helper Name Role Phone Neo Han MD Primary Care Provide r Encounter Details Date Type Department Care Team (Latest Contact Info) Description 12/28/2024 4:35 PM EDT - 12/28/2024 11:59 PM EDT Hospital Encounter Radiology Film File [address] [place] [address] Discharge Disposition: Home - Self Care Allergies Active Allergy Reactions Criticality Noted Date Comments Niacin 01/07/2022 Other reaction(s): ITCHY SPLOTCHY RASH Niacin Er (Antihyperlipidemic) Flushing 09/04/2010 documented as of this encounter (statuses as of 01/17/2025) Medications FIBER FORMULA PO CAPS Take 1 [...] goal of less than 8.0% ([facility]) Test daily. E11.9 100 Each 1 12/16/20 21 Active Acetaminophen 325 MG Oral Tablet (Tylenol) Take 2 Tablets by mouth every 6 hours as needed. 01/13/20 22 Active Advanced Probiotic Oral Capsule Take by mouth 2 Capsules daily . 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 ([facility]) 01/11/2023 Systolic congestive heart failure 01/11/2023 S/P drug eluting coronary stent placement 2022 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 Coronary artery disease [place] coronary artery of [place] heart without angina pectoris 01/11/2023 Incisional hernia, [...] as of this encounter (statuses as of 01/17/2025) Resolved Problems Problem Noted Date Diagnosed Date [...] as of this encounter (statuses as of 01/17/2025) Immunizations Name Administration Dates Next Due COVID-19 [...] 01/24/2025 11:00 AM EDT Office Visit Gastroenterology, [facility] [address] [place] [phone] Berenice Montano CRNP [address] [place] [address] 01/25/2025 10:00 AM EDT PulmDiagnostic Pulmonary Function Lab, [facility] [address] [place] [phone] [place], [address] [place] [address] 02/08/2025 9:20 AM EDT Anticoagulation Pharmacy, [address] [place] [address] [place] [address] 02/13/2025 9:30 AM EDT Office Visit Cardiology, [facility] [address] [place] [phone] Jh Brownlee PA-C [address] [place] [address] 02/27/2025 3:00 PM EDT Office Visit Pulmonary Medicine, [facility] [address] [facility] [place] [address] Rodolfo Mcneil MD [address] [place] [address] 07/17/2025 1:40 PM EDT Office Visit Family Medicine [address] [place] [phone] Neo Han MD [address] [place] [address] [place] [address] Scheduled Procedures Name Priority Associated Diagnoses Date/Ti [...] - GENERAL RAD (IMAGES ONLY,NO REPORT) Routine 12/28/2024 4:35 PM EDT documented in this encounter Results * RADIOLOGY EXAM - GENERAL RAD (IMAGES ONLY,NO REPORT) (12/28/2024 4:35 PM EDT) 12/28/2024 4:33 PM EDT Narrative Scheduling, Silent - 01/16/2025 10:50 AM EDT This is an imaging study not interpreted or resulted by a [facility] or [employer] contracted radiologist. us Rodolfo Mcneil MD RADIOLOGY (RAD GENERAL ) [...] 2:54 PM 12/14/2007 5:34 PM Care Teams Glass Cutter Helper Relationship Specialty Start Date End Date Neo Han MD [address] [place] [address] [place] [address] PCP - General Family Medicine 07/19/13 documented as of this encounter
--- OUTSIDE RECORDS SUMMARY | 2025-01-24 23:15 | External Medical Summary | Summary of Care ---
Author Name Unknown Organization [facility] Address [address] [place] [address] Phone [phone] Care Team Providers Care Event Crew Technician Name Role Phone Neo Han MD Primary Care Provide r Encounter Details Date Type Department Care Team (Latest Contact Info) Description 12/29/2024 2:10 PM EDT - 12/29/2024 11:59 PM EDT Hospital Encounter Radiology Film File [address] [place] [address] Discharge Disposition: Home - Self [...] hemoglobin A1c goal of less than 8.0% ([facility]) Test daily. E11.9 100 Each [...] hemoglobin A1c goal of less than 8.0% ([facility]) Test daily E11.9 100 Strip [...] thrombus 01/11/2023 Coronary artery disease invo lving [place] coronary artery of [place] heart without angina pectoris 01/11/2023 Incisional hernia, [...] 01/24/2025 11:00 AM EDT Office Visit Gastroenterology, [facility] [address] [place] [phone] Berenice Montano CRNP [address] [place] [address] 01/25/2025 10:00 AM EDT PulmDiagnostic Pulmonary Function Lab, [facility] [address] [place] [phone] [place], [address] [place] [address] 02/08/2025 9:20 AM EDT Anticoagulation Pharmacy, [address] [place] [address] [place] [address] 02/13/2025 9:30 AM EDT Office Visit Cardiology, [facility] [address] [place] [phone] Jh Brownlee PA-C [address] [place] [address] 02/27/2025 3:00 PM EDT Office Visit Pulmonary Medicine, [facility] [address] [facility] [place] [address] Rodolfo Mcneil MD [address] [place] [address] 07/17/2025 1:40 PM EDT Office Visit Family Medicine [address] [place] [phone] Neo Han MD [address] [place] [address] [place] [address] Scheduled Procedures Name Priority Associated Diagnoses Date/Ti [...] interpreted or resulted by a [facility] or [employer] contracted radiologist. us Rodolfo Mcneil MD RADIOLOGY [...] 2:54 PM 12/14/2007 5:34 PM Care Teams Event Crew Technician Relationship Specialty Start Date End Date Neo Han MD [address] [place] [address] [place] [address] PCP - General Family Medicine 07/19/13 documented as of this encounter
--- OUTSIDE RECORDS SUMMARY | 2025-01-24 23:15 | External Medical Summary | Summary of Care ---
Author Name Unknown Organization [facility] Address [address] [place] [address] Phone [phone] Care Team Providers Care Golf Professional Name Role Phone Juan Han MD Primary Care Provide r Reason for Visit * Reason Onset Date Comments Medication Refill 01/20/2025 Encounter Details Date Type Department Care Team (Late st Contact Info) Description 01/20/2025 Refill Family Medicine [address] [phone] Juan Han MD [address] [place] [id number] Type 2 diabetes mellitus with hemoglobin A1c goal of less than 8.0% ([facility]) Allergies Active Allergy Reactions Criticality Noted Date Comments Niacin 01/07/2022 Other reaction(s): ITCHY SPLOTCHY RASH Niacin Er (Antihyperlipidemic) Flushing 09/04/2010 documented as of this encounter (statuses as of 01/20/2025) Medications FIBER FORMULA PO CAPS Take 1 Cap by mouth daily. Active LANCETS MISCIndications :Diabetes mellitus type 2, diet-controlled ([facility]) Use once daily as directed Dx 250.00 1 Box 5 07/24/20 13 Active Cyanocobalamin (VITAMIN B-12) 1000 MCG Tablet Take 1 Tablet by mouth in the morning. 05/16/20 19 Active Blood Glucose Monitoring Suppl (ONETOUCH VERIO) w/Device KIT Test daily E11.9 1 Kit 04/16/20 20 Active [employer] UltraSoft LancetsIndicati ons:Type 2 diabetes mellitus with hemoglobin A1c goal of less than 8.0% ([facility]) Test daily. E11.9 100 Each 1 10/02/20 21 Active Acetaminophen 325 MG Oral Tablet (Tylenol) Take 2 Tablets by mouth every 6 hours as needed. 01/13/20 22 Active Advanced Probiotic Oral Capsule Take by mouth 2 Capsules daily . For 10 days Active Clopidogrel Bisulfate 75 MG Oral Tablet [...] 25 Active Ondansetron HCl 4 MG Oral TabletIndicatio [...] 25 Active Fenofibrate Micronized 134 MG Oral CapsuleIndicati ons:Lipoprotein deficiency Take 1 Capsule by mouth in the morning. 90 Capsule 1 01/04/20 25 Active Budesonide-Form oterol Fumarate 160-4.5 MCG/ACT Inhalation [...] TO HYPOTENSION AND F/U WITH CARDIOLOGY. 01/10/20 25 Active OneTouch Verio In Vitro Strip (Glucose Blood)Indicatio ns:Type 2 diabetes mellitus with hemoglobin A1c goal of less than 8.0% (HCC) Test daily E11.9 100 Strip 1 01/21/20 25 Active OneTouch Verio In Vitro Strip (Glucose Blood)Indicatio ns:Type 2 diabetes mellitus with hemoglobin A1c goal of less than 8.0% (HCC) Test daily E11.9 100 Strip 1 07/20/20 22 025 Discontin ued(Refil l) Hospital, Clinic, or Other Facility Administered Medication Ordered Dose Route Frequency Start Date End Date Status Albuterol Sulfate (Proventil) (5 MG/ML) 0.5% *conc* inhalation solution 2.5 mgIndications:Acute bronchitis due to respiratory syncytial virus (RSV) 2.5 mg NEBULIZER PRN 01/16/2025 01/16/2026 Active documented as of this encounter (statuses as of 01/20/2025) Active Problems Problem Noted Date Diagnosed Date Pulmonary hypertension 01/09/2025 Chronic ischemic heart disease 02/04/2024 HTN, goal below 130/80 02/04/2024 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 coronary artery of [place] heart without angina pectoris 01/11/2023 Incisional hernia, [...] as of this encounter (statuses as of 01/20/2025) Resolved Problems Problem Noted Date Diagnosed Date [...] as of this encounter (statuses as of 01/20/2025) Immunizations Name Administration Dates Next Due COVID-19 mRNA, LNP-s, No Pre serve, 2-Dose Series ([employer]) 08/12/2021,12/28/2020,12/02/2020 COVID-19, MRNA-LNP, PF, 30 M CG/0.3 [...] encounter Miscellaneous Notes * Telephone Encounter - Arnulfo Rosenthal formerly [facility] - 01/20/2025 12:39 PM EDT Signed Prescriptions: Disp Refills OneTouch Verio In Vitro Strip (Glucose Blo*100 St*1 Sig: Test daily E11.9 Authorizing Provider: JUAN HAN Ordering User: ARNULFO ROSENTHAL * Telephone Encounter - Carey Larson, waterworks supervisor - 01/20/2025 12:07 PM EDT Pt asking high priority due to being out. Did you pend patient's preferred pharmacy and medication before forwarding?yes Pharmacy: [facility] [address] Pending Prescriptions: Disp Refills OneTouch Verio In Vitro Strip (Glucose Bl*100 St*1 Sig: Test daily E11.9 Last Visit: 01/09/2025 (in office), Visit date not found (telemedicine) Next Visit: 07/17/2025 If no future appointments scheduled, and last appointment is greater than a year ago, please schedule patient for a follow-up appointment Last date the medication was ordered: 07/20/22 Is this request for a controlled substance?No [...] Labs: Lab Results Component Value Date/Time CREAT 1.0 12/19/2024 01:36 PM CREAT 1.04 05/22/2022 12:00 AM CREAT 0.9 09/26/2020 11:23 AM POTASSIUM 4.3 12/19/2024 01:36 PM POTASSIUM 3.8 05/22/2022 12:00 AM POTASSIUM 4.4 09/26/2020 11:23 AM TSH 2.15 07/04/2024 08:40 AM TSH 3.23 07/16/2020 03:04 PM LDL 47 07/04/2024 08:40 AM LDL 55 07/16/2020 03:04 PM LDL UNINTERPRETABLE RESULT 05/12/2019 02:21 PM LDLCALC 56 09/24/2010 12:00 AM ALT 10 12/19/2024 01:36 PM ALT 26 09/26/2020 11:23 AM HGBA1C 5.7 (H) 12/19/2024 01:36 PM HGBA1C 7.1 (H) 07/16/2020 02:55 PM documented in this encounter Plan of Treatment Upcoming Encounters Date Type Department Care Team (Late st Contact Info) Description 01/24/2025 11:00 AM EDT Office Visit Gastroenterology, [facility] [address] [phone] Berenice Montano CRNP [address] [address] 01/25/2025 10:00 AM EDT PulmDiagnostic Pulmonary Function Lab, [facility] [address] [phone] [place], [address] [place] [address] 02/08/2025 9:20 AM EDT Anticoagulation Pharmacy, [address] [place] [address] [place] [address] 02/13/2025 9:30 AM EDT Office Visit Cardiology, [facility] [address] [place] [phone] Jh Brownlee PA-C [address] [place] [address] 02/27/2025 3:00 PM EDT Office Visit Pulmonary Medicine, [facility] [address] [place] [address] Rodolfo Mcneil MD [address] [place] [address] 07/17/2025 1:40 PM EDT Office Visit Family Medicine [address] [place] [phone] Juan Han MD [address] [place] [address] [place] [address] Scheduled Procedures Name Priority Associated Diagnoses Date/Ti [...] Diagnoses Diagnosis Type 2 diabetes mellitus with hemoglobin A1c goal of less than 8.0% (HCC) documented in this encounter Advance Directives [...] 2:54 PM 12/14/2007 5:34 PM Care Teams Golf Professional Relationship Specialty Start Date End Date Juan Han MD [address] [place] [address] [place] [phone] PCP - General Family Medicine 07/19/13 documented as of this encounter
--- OUTSIDE RECORDS SUMMARY | 2025-01-24 23:15 | External Medical Summary | Summary of Care ---
Author Name Unknown Organization [facility] Address [address] [place] [address] Phone [phone] Care Team Providers Care Metal Trades Instructor Name Role Phone Neo Han MD Primary Care Provide r Reason for Visit * Reason Onset Date Comments Appointment 01/09/2025 Cardiology Encounter Details Date Type Department Care Team (Late st Contact Info) Description 01/09/2025 Telephone Family Medicine [address] [phone] Neo Han MD [address] [place] [address] Appointment (Cardiology ) Allergies Active Allergy Reactions Criticality Noted Date Comments Niacin 01/07/2022 Other reaction(s): ITCHY SPLOTCHY RASH Niacin Er (Antihyperlipidemic) Flushing 09/04/2010 documented as of this encounter (statuses as of 01/09/2025) Medications FIBER FORMULA PO CAPS Take 1 Cap by mouth daily. Active LANCETS MISCIndications: Diabetes mellitus type 2, diet-controlled (HCC) Use once daily as directed Dx 250.00 1 Box 5 07/24/20 13 Active Cyanocobalamin (VITAMIN B-12) 1000 MCG Tablet Take 1 Tablet by mouth in the morning. 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 ([facility]) 01/11/2023 Systolic congestive heart failure 01/11/2023 S/P drug eluting coronary stent placement 2022 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 Coronary artery disease invo lving [place] coronary artery of [place] heart without angina pectoris 01/11/2023 Incisional hernia, [...] as of this encounter (statuses as of 01/09/2025) Resolved Problems Problem Noted Date Diagnosed Date [...] as of this encounter (statuses as of 01/09/2025) Immunizations Name Administration Dates Next Due COVID-19 mRNA, LNP-s, No Pre serve, 2-Dose Series ([employer]) 08/12/2021,12/28/2020,12/02/2020 COVID-19, MRNA-LNP, PF, 30 M CG/0.3 [...] encounter Miscellaneous Notes * Telephone Encounter - Giuliana Feliz LPN - 01/09/2025 3:12 PM EDT 05/10/24 limited echo for surveillence of L ventricular apical thrombus 02/04/24 echo EF 40% Former Dusty Juarez DO and Nellie Frausto PA-C pt, was not seen by cardio at [facility]. Requires follow up * Telephone Encounter - Maite Coleman OSA - 01/09/2025 3:01 PM EDT Juanito needs an appt for Cardiology: Schedule with cardiology MIKIE for hospital f/u and overdue for regular f/u. Newly reduced EF of 25-30% He was recently in the hospital and missed his appt. documented in this encounter Plan of Treatment Upcoming Encounters Date Type Department Care Team (Late st Contact Info) Description 01/11/2025 9:50 AM EDT Anticoagulation Pharmacy, [address] [place] [address] [place] [address] 01/16/2025 11:00 AM EDT Office Visit Pulmonary Medicine, [facility] [address] [place] [phone] [facility] [address] [facility] [address] 01/24/2025 11:00 AM EDT Office Visit Gastroenterology, [facility] [address] [place] [phone] Berenice Montano CRNP [address] [place] [address] 07/17/2025 1:40 PM EDT Office Visit Family Medicine [address] [place] [phone] Neo Han MD [address] [place] [address] [place] [address] Scheduled Procedures Name Priority Associated Diagnoses Date/Ti [...] 2:54 PM 12/14/2007 5:34 PM Care Teams Metal Trades Instructor Relationship Specialty Start Date End Date Neo Han MD [address] [place] [address] [place] [address] PCP - General Family Medicine 07/19/13 documented as of this encounter
--- OUTSIDE RECORDS SUMMARY | 2025-01-24 23:15 | External Medical Summary ---
Author Name Unknown Address Unknown Organization : Laboratory Report Ordering Provider Test Date Status MAGY JONES 01/11/2025 09:51:44 Final Therapeutic ranges for non-o perative patients:
Prophylaxsis/treatment of DVT: (Range:2.0-3.0)
Treatment of pulmonary embolism:(Range:2.0-3.0)
Prevention of systemic embolism from:
-tissue heart valves
-acute myocardial infarction
-valvular heart disease
-atrial fibrillation
(Range: 2.0-3.0)
Mechanical prosthetic valves: (Range: 2.5-3.5) Observation Date Value Abnormality Reference (Units ) Status INR in Capillary blood by Coagulation assay 01/11/2025 09:51:44 4.3 (INR) Final Performing Location
--- OUTSIDE RECORDS SUMMARY | 2025-01-24 23:15 | External Medical Summary | Summary of Care ---
Author Name Unknown Organization [facility] Address [address] [place] [address] Phone [phone] Care Team Providers Care Information Operator Name Role Phone Neo Han MD Primary Care Provide r Reason for Visit * Reason Comments Pulmonary Function Test PFT with broncho dilator Oxygen Assessment 6 minute walk Encounter Details Date Type Department Care Team (Latest Contact Info) Description 01/23/2025 6:30 AM EDT PulmDiagnostic Pulmonary Function Lab, [facility] [address] [place] [phone] [place], [address] [place] [address] Acute bronchitis due to respiratory syncytial virus (RSV)* Allergies Active Allergy Reactions Criticality Noted Date Comments Niacin 01/07/2022 Other reaction(s): ITCHY SPLOTCHY RASH Niacin Er (Antihyperlipidemic) Flushing 09/04/2010 documented as of this encounter (statuses as of 01/23/2025) Medications FIBER FORMULA PO CAPS Take 1 Cap by mouth daily. Active LANCETS MISCIndications: Diabetes mellitus type 2, diet-controlled (HCC) Use once daily as directed Dx 250.00 1 Box 5 07/24/20 13 Active Cyanocobalamin (VITAMIN B-12) 1000 MCG Tablet Take 1 Tablet by mouth in the morning. 05/16/20 19 Active Blood Glucose Monitoring Suppl (ONETOTaplet VERIO) w/Device KIT Test daily E11.9 1 Kit 04/16/20 20 Active OneTouch UltraSoft LancetsIndicatio ns:Type 2 diabetes mellitus with hemoglobin A1c goal of less than 8.0% ([facility]) Test daily. E11.9 100 [...] HYPOTENSION AND F/U WITH CARDIOLOGY. 01/10/20 Active OneTouch Verio In Vitro Strip (Glucose Blood)Indication s:Type 2 diabetes mellitus with hemoglobin A1c goal of less than 8.0% ([facility]) Test daily E11.9 100 Strip 1 01/21/20 Active Hospital, Clinic, or Other Facility Administered Medication Ordered Dose Route Frequency Start Date End Date Status Albuterol Sulfate (Proventil) (5 MG/ML) 0.5% *conc* inhalation solution 2.5 mgIndications:Acute bronchitis due to respiratory syncytial virus (RSV) 2.5 mg NEBULIZER PRN 01/16/2025 01/16/2026 Active documented as of this encounter (statuses as of 01/23/2025) Active Problems Problem Noted Date Diagnosed Date Pulmonary hypertension 01/09/2025 Chronic ischemic heart disease 02/04/2024 HTN, goal below 130/80 02/04/2024 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 ([facility]) 01/11/2023 Systolic congestive heart failure 01/11/2023 S/P drug eluting coronary stent placement 2022 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 Coronary artery disease invo lving [place] coronary artery of [place] heart without angina pectoris 01/11/2023 Incisional hernia, [...] as of this encounter (statuses as of 01/23/2025) Resolved Problems Problem Noted Date Diagnosed Date [...] as of this encounter (statuses as of 01/23/2025) Immunizations Name Administration Dates Next Due COVID-19 mRNA, LNP-s, No Pre serve, 2-Dose Series ([employer]) 08/12/2021,12/28/2020,12/02/2020 COVID-19, MRNA-LNP, PF, 30 M CG/0.3 mL, 12 YRS AND ABOVE, IM ([employer]) 07/30/2023 Covid-19, Mrna, Lnp-s, Pf, B ivalent, [...] Sign Reading Time Taken Comments Blood Pressure - - Pulse - - Temperature - - Respiratory Rate - - Oxygen Saturation - - Inhaled Oxygen Concentration - - Weight 89.4 kg (197 lb) 01/23/2025 7:12 AM EDT Height 165.1 cm (5' 5") 01/23/2025 7:12 AM EDT Body Mass Index 32.78 01/23/2025 7:12 AM EDT documented in this encounter Nursing Notes * Sae Allan, BLACKING WHEEL TENDER - 01/23/2025 7:15 AM EDT Juanito Yoon was identified by name, Date of : (1945), and . Vitals were obtained for testing. Body mass index is 32.78 kg/m². Pt has a 2 ppd for 40 years smoking history and quit 19.8 years ago. Pt is retired from [employer]. Spirometry, RAW, and TGV performed. A slow volume nebulizer treatment of 0.5ml of albuterol in 3 ml of NSS was given. The proper method of use, as well as anticipated side effects, of this svn are discussed and demonstrated to the patient. Patient demonstrates adequate delivery. Administrations This Visit Albuterol Sulfate (Proventil) (5 MG/ML) 0.5% *conc* inhalation solution 2.5 mg Admin Date 01/23/2025 Action Given Dose 2.5 mg Route Nebulizer Documented By Sae Allan, SHERRY 6 minute walk Exercise oximetry performed on room air x 6 minutes. Pt ambulated 1350 feet/ 411 meters. 3 rest periods were required for 37 seconds. Lowest SPO2 on room air was 92%. documented in this encounter Plan of Treatment Upcoming Encounters Date Type Department Care Team (Late st Contact Info) Description 01/24/2025 11:00 AM EDT Office Visit Gastroenterology, [facility] [address] [place] [phone] Berenice Montano CRNP [address] [place] [address] 02/08/2025 9:20 AM EDT Anticoagulation Pharmacy, [address] [place] [address] [place] [address] 02/13/2025 9:30 AM EDT Office Visit Cardiology, [facility] [address] [place] [phone] Jh Brownlee PA-C [address] [place] [address] 02/27/2025 3:00 PM EDT Office Visit Pulmonary Medicine, [facility] [address] [place] [address] Rodolfo Mcneil MD [address] [place] [address] 07/17/2025 1:40 PM EDT Office Visit Family Medicine [address] [place] [phone] Neo Han MD [address] [place] [address] [place] [address] Pending Results Name Type Priority Associated Diagnoses Date /Time LUNG VOLUMES (PLETHYSMOGRAPHY) Procedures Routine Acute bronchitis due to respiratory syncytial virus (RSV) 01/23/2025 6:34 AM EDT SPIROMETRY B/A BRONCHODILATOR Procedures Routine Acute bronchitis due to respiratory syncytial virus (RSV) 01/23/2025 6:34 AM EDT Scheduled Procedures Name Priority Associated [...] Procedure Name Priority Date/Time Associated Diagnosis Comments LUNG VOLUMES (PLETHYSMOGRAPHY) Routine 01/23/2025 6:34 AM EDT Acute bronchitis due to respiratory syncytial virus (RSV) SPIROMETRY B/A BRONCHODILATOR Routine 01/23/2025 6:34 AM EDT Acute bronchitis due to respiratory syncytial virus (RSV) documented in this encounter Visit Diagnoses Diagnosis Acute bronchitis due to respiratory syncytial virus (RSV)- Primary documented in this encounter Administered Medications Active Administered Medications - up to 3 most recent administrations Medication Order MAR Action Action Date Dose Rate Site Albuterol Sulfate (Proventil) (5 MG/ML) 0.5% *conc* inhalation solution 2.5 mg 2.5 mg, Nebulizer, PRN Other, for Pulmonary Function Testing, Starting on Wed01/16/25 at 1117, Until Wed01/16/26 at 1116, For 365 days, *Dilute with 0.9% saline IF neededIndications:Acute bronchitis due to respiratory syncytial virus (RSV) Given 01/23/2025 6:28 AM EDT 2.5 mg documented in this encounter Advance Directives * [...] 2:54 PM 12/14/2007 5:34 PM Care Teams Information Operator Relationship Specialty Start Date End Date Neo Han MD [address] [place] [address] [place] [address] PCP - General Family Medicine 07/19/13 documented as of this encounter
--- OUTSIDE RECORDS SUMMARY | 2025-01-24 23:15 | External Medical Summary | Summary of Care ---
Author Name Unknown Organization [facility] Address [address] [place] [address] Phone [phone] Care Team Providers Care Emergency Department Coordinator Name Role Phone Neo Han MD Primary Care Provide r Encounter Details Date Type Department Care Team (Late st Contact Info) Description 12/28/2024 Orders Only Pulmonary Medicine Lino Humphreys [address] [phone] Rodolfo Mcneil MD [address] [address] [address] Allergies Active Allergy Reactions Criticality Noted Date [...] thrombus 01/11/2023 Coronary artery disease invo lving [place] coronary artery of [place] heart without angina pectoris 01/11/2023 Incisional hernia, [...] 01/24/2025 11:00 AM EDT Office Visit Gastroenterology, [facility] [address] [place] [phone] Berenice Montano CRNP [address] [place] [address] 01/25/2025 10:00 AM EDT PulmDiagnostic Pulmonary Function Lab, [facility] [address] [place] [phone] [place], [address] [place] [address] 02/08/2025 9:20 AM EDT Anticoagulation Pharmacy, [address] [place] [address] [place] [address] 02/13/2025 9:30 AM EDT Office Visit Cardiology, [facility] [address] [place] [phone] Jh Brownlee PAOneal [address] [place] [address] 02/27/2025 3:00 PM EDT Office Visit Pulmonary Medicine, [facility] [address] [place] [address] Rodolfo Mcneil MD [address] [facility] [place] [address] 07/17/2025 1:40 PM EDT Office Visit Family Medicine [address] [place] [phone] Neo Han MD [address] [place] [address] [place] [address] Scheduled Procedures Name Priority Associated Diagnoses Date/Ti [...] interpreted or resulted by a [facility]. Rodolfo Mcneil MD RADIOLOGY (RAD [...] 2:54 PM 12/14/2007 5:34 PM Care Teams Emergency Department Coordinator Relationship Specialty Start Date End Date Neo Han MD [address] [place] [address] [place] [address] PCP - General Family Medicine 07/19/13 documented as of this encounter
--- OUTSIDE RECORDS SUMMARY | 2025-01-24 23:16 | External Medical Summary | Summary of Care ---
Author Name Unknown Organization [facility] Address [address] [place] [address] Phone [phone] Care Team Providers Care Slubber Frame Changer Name Role Phone Neo Han MD Primary Care Provide r Reason for Visit * Reason Comments Acute Encounter Details Date Type Department Care Team (Late st Contact Info) Description 12/28/2024 1:00 PM EDT Office Visit Family Medicine [address] [phone] Mukesh Hernández [address] [place] [address] Pneumonia of both lower lobes due to infectious organism*; Diarrhea, unspecified type; Nausea Allergies Active Allergy Reactions Criticality Noted Date Comments Niacin 01/07/2022 Other reaction(s): ITCHY SPLOTCHY RASH Niacin Er (Antihyperlipidemic) Flushing 09/04/2010 documented as of this encounter (statuses as of 12/28/2024) Medications FIBER FORMULA PO CAPS Take 1 Cap by mouth daily. Active LANCETS MISCIndications: Diabetes mellitus type 2, diet-controlled (HCC) Use once daily as directed Dx 250.00 1 Box 5 07/24/20 13 Active Cyanocobalamin (VITAMIN B-12) 1000 MCG Tablet Take 1 Tablet by mouth in the morning. 05/16/20 19 Active Blood Glucose Monitoring Suppl (ZazzleTOUCH VERIO) w/Device KIT Test daily E11.9 1 [...] Capsules daily . For 10 days Active AgralogicsTouch VerEverCloud In Vitro Strip (Glucose Blood)Indication s:Type 2 [...] for Nausea. 21 Tablet 12/20/19 25 Active predniSONE 10 MG Oral Tablet (Deltasone)Indic ations:Pneumonia of both lower lobes due to infectious organism Take 5 tabs for 2 days, 4 tabs for 2 days, 3 tabs for 2 days, 2 tabs for 2 days 1 tab for 2 days 30 Tablet 12/29/19 25 Active Amoxicillin-Pot Clavulanate 875-125 MG Oral Tablet (Augmentin)Indic ations:Pneumonia of both lower lobes due to infectious organism Take 1 Tablet by mouth in the morning and 1 Tablet before bedtime. Do all this for 7 days. 14 Tablet 12/29/19 25 025 Active Azithromycin 250 MG Oral Tablet (Zithromax Z-Garland)Indication s:Pneumonia of both lower lobes due to infectious organism Take two tablets by mouth on first day, then 1 tablet daily until gone 6 Tablet 12/29/19 25 Active Albuterol Sulfate HFA 108 (90 Base) MCG/ACT Inhalation Aerosol SolutionIndicati ons:Pneumonia of both lower lobes due to infectious organism Inhale 2 Puffs by mouth every 6 hours as needed for Shortness of Breath or Wheezing. 6.7 g 12/29/19 25 Active Hospital, Clinic, or Other Facility Administered Medication Ordered Dose Route Frequency Start Date End Date Status Albuterol Sulfate (Proventil) (2.5 MG/3ML) 0.083% inhalation solution 2.5 mgIndications:Pneumonia of both lower lobes due to infectious organism 2.5 mg NEBULIZER ONCE 12/28/2024 12/28/[address]24 [address] ded documented as of this encounter (statuses as of 12/28/2024) Active Problems Problem Noted Date Diagnosed Date Chronic ischemic heart disease 02/04/2024 HTN, goal below 130/80 02/04/2024 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 ([facility]) 01/11/2023 Systolic congestive heart failure 01/11/2023 S/P drug eluting coronary stent placement 2022 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 Coronary artery disease invo lving poarch coronary artery of poarch heart without angina pectoris 01/11/2023 Incisional hernia, [...] as of this encounter (statuses as of 12/28/2024) Resolved Problems Problem Noted Date Diagnosed Date [...] as of this encounter (statuses as of 12/28/2024) Immunizations Name Administration Dates Next Due COVID-19 mRNA, LNP-s, No Pre serve, 2-Dose Series ([employer]) 08/12/2021,12/28/2020,12/02/2020 COVID-19, MRNA-LNP, PF, 30 M CG/0.3 [...] Sign Reading Time Taken Comments Blood Pressure 132/78 12/28/2024 1:03 PM EDT Pulse 61 12/28/2024 1:03 PM EDT Temperature 37.1 °C (98.7 °F) 12/28/2024 1:03 PM ED T Respiratory Rate 16 12/28/2024 1:03 PM EDT Oxygen Saturation 97% 12/28/2024 1:03 PM EDT Inhaled Oxygen Concentration - - Weight 88.5 kg (195 lb) 12/28/2024 1:03 PM EDT Height - - Body Mass Index 30.54 05/26/2024 12:09 PM EDT documented in this encounter Progress Notes * Mukesh Hernández CRNP - 12/28/2024 1:10 PM EDT Images from the original note were not included. Subjective Juanito Yoon is a 79 year old male that presents for Acute Concerns today for sob/cough that started 2-3 weeks ago. Prior to this had been having N/V/D and was exposed to norovirus. Reports wheezing and sob especially with exertion. Cough is mostly dry. Decreased appetite/nausea. Still having diarrhea. Not using Zofran. Is taking Immodium for diarrhea, but not helping. Denies any fever or chills. No cp. Patient Active Problem List Diagnosis Cyst of [...] Apical mural thrombus Coronary artery disease involving poarch coronary artery of poarch heart without angina pectoris Chronic ischemic heart disease HTN, goal below 130/80 Frequent PVCs Current Outpatient Medications Medication Sig Dispense Refill FIBER FORMULA PO CAPS Take 1 Cap by mouth daily. LANCETS MISC Use once daily as directed Dx 250.00 1 Box 5 Cyanocobalamin (VITAMIN B-12) 1000 MCG Tablet Take 1 Tablet by mouth in the morning. Blood Glucose Monitoring Suppl (PEAR SPORTSIO) w/Device KIT Test daily E11.9 1 Kit 0 AgralogicsTouch UltraSoft Lancets Test daily. E11.9 100 Each 1 Acetaminophen 325 MG Oral Tablet (Tylenol) Take 2 Tablets by mouth every 6 hours as needed. Advanced Probiotic Oral Capsule Take by mouth 2 Capsules daily . For 10 days BucketFeetben In Vitro Strip (Glucose Blood) Test daily [...] as needed for Nausea. 21 Tablet 0 predniSONE 10 MG Oral Tablet (Deltasone) Take 5 tabs for 2 days, 4 tabs for 2 days, 3 tabs for 2 days, 2 tabs for 2 days 1 tab for 2 days 30 Tablet 0 Amoxicillin-Pot Clavulanate 875-125 MG Oral Tablet (Augmentin) Take 1 Tablet by mouth in the morning and 1 Tablet before bedtime. Do all this for 7 days. 14 Tablet 0 Azithromycin 250 MG Oral Tablet (Zithromax Z-Garland) Take two tablets by mouth on first day, then 1 tablet daily until gone 6 Tablet 0 No current facility-administered medications for this visit. [...] LOW HDL 04/14/2008 Mixed dyslipidemia 12/06/2007 Old [place] (myocardial infarction) 10/18/1994 OTHER MD, Angina, Diverticulosis, Hiatal hernia, Hypertension, Hypothyroidism, CVA, [...] PROXIMAL DIAGNOSTIC performed by Abdelrahman Strickland ENDOSCOPY [facility] COLONOSCOPY, DIAGNOSTIC (RECTUM) 10/26/2019 inflammation on bx, diverticulosis/COLONOSCOPY FLEXIBLE PROXIMAL DIAGNOSTIC performed by Brant Zhao MD at ENDOSCOPY [facility] CORONARY ARTERY BYPASS, SINGLE [address] Skinner EGD, FLEXIBLE, DIAGNOSTIC 10/26/2019 reflux esophagitis, hiatal hernia, gastritis, repeat 2 mo/ESOPHAGOGASTRODUODENOSCOPY (EGD), FLEXIBLE, TRANSORAL, DIAGNOSTIC performed by Brant Zhao MD at ENDOSCOPY [facility] EGD, FLEXIBLE, DIAGNOSTIC 04/22/2020 hiatal hernia/biopsies normal/ESOPHAGOGASTRODUODENOSCOPY (EGD), FLEXIBLE, TRANSORAL, DIAGNOSTIC performed by Brant Zhao MD at ENDOSCOPY [facility] EGD, FLEXIBLE, DIAGNOSTIC 09/24/2021 normal bx / INPT [facility] EGD, FLEXIBLE, DIAGNOSTIC N/A 10/08/2023 portal hypertensive gastropathy/recall 2 years/EGD/MN INJECT DX/THER SUBSTANCE INTERLAMINAR LUMBAR/SACRAL W IMAGE GUIDE 12/14/2016 INJECTION SPINE LUMBAR OR SACRAL performed by Ander Boland, DO at OR [facility] INJECTION LUMBAR/SACRAL 08/05/2016 INJECTION SPINE LUMBAR OR SACRAL performed by Ander Villaseñorsins, DO at OR [facility] REMOVAL OF PROSTATE (TURP) 03/12/2010 TRANSURETHRAL RESECTION PROSTATE ELECTROSURGICAL performed by THOMAS DEWEY at [place] [facility] REMOVAL OF SALIVARY STONE, SIMPLE removed right [...] 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 Operations and Intelligence. Blood Transfusions Not Asked [...] on file Housing Stability: Not on file Objective BP 132/78 | Pulse 61 | Temp 98.7 °F (37.1 °C) (Tympanic) | Resp 16 | Wt 195 lb (88.5 kg) | SpO2 97% | BMI 30.54 kg/m² | BSA 2.05 m² General: A&Ox3 and no distress Head: Normocephalic and atraumatic Eye: conjunctiva are pink and non-injected, sclera clear Ears: External ears normal, Canals clear, TM's Normal Nose: no mucosal erythema, no mucosal edema, no purulent discharge Oropharynx: no exudate, no erythema, lips, buccal mucosa, and tongue normal, and mucous membranes are moist Neck: supple, no adenopathy, thyroid normal size, non-tender, without nodularity Heart: regular rate & rhythm, no murmur, no gallops, S-1 normal, and S-2 normal Lungs: normal respiratory rate and rhythm, diffuse expiratory wheezing and crackles b/l lower lobes Results reviewed: BMP results Recent Labs Units 12/19/24 1336 07/04/24 0840 02/04/24 1620 SODIUM - [facility] mmol/L 142 140 140 POTASSIUM - [facility] mmol/L 4.3 4.2 4.4 CHLORIDE - [facility] mmol/L 107 105 103 CO2 - [facility] mmol/L 21* 22 26 CREATININE - [facility] mg/dL 1.0 0.9 1.1 BUN - [facility] mg/dL 22* 17 17 CBC results Recent Labs Units 12/19/24 1336 07/04/24 0840 02/04/24 1620 WBC K/uL 6.56 5.61 8.15 HGB g/dL 13.4* 15.0 14.6 HCT % 41.4 44.3 44.6 PLT K/uL 130* 147 158 Assessment and Plan Pneumonia of both lower lobes due to infectious organism - OTC Mucinex for congestion, drink plenty of fluids, cool mist humidifier - improvement after breathing treatment - ER precautions given Orders: predniSONE 10 MG Oral Tablet (Deltasone); Take 5 tabs for 2 days, 4 tabs for 2 days, 3 tabs for 2 days, 2 tabs for 2 days 1 tab for 2 days Amoxicillin-Pot Clavulanate 875-125 MG Oral Tablet (Augmentin); Take 1 Tablet by mouth in the morning and 1 Tablet before bedtime. Do all this for 7 days. Azithromycin 250 MG Oral Tablet (Zithromax Z-Garland); Take two tablets by mouth on first day, then 1 tablet daily until gone Albuterol Sulfate HFA 108 (90 Base) MCG/ACT Inhalation Aerosol Solution; Inhale 2 Puffs by mouth every 6 hours as needed for Shortness of Breath or Wheezing. Albuterol Sulfate (Proventil) (2.5 MG/3ML) 0.083% inhalation solution 2.5 mg Diarrhea, unspecified type - given ongoing diarrhea and no help with immodium will get stool culture Orders: GASTROINTESTINAL PATHOGEN PANEL, STOOL; Future Nausea - recommend taking Zofran as prescribed for nausea to help with fluid intake and eating Wrap-Up Follow Up: Return if symptoms worsen or fail to improve. I spent a total of 20-29 minutes (exact time 22 mins) on the date of service in preparation, delivery, and documentation of the care provided to Juanito Yoon excluding any time spent in the performance of separately billed services. Cosigned by Makenna Vasquez MD at 12/28/2024 1:48 PM EDT documented in this encounter Nursing Notes * Juanita Lynn LPN - 12/28/2024 1:01 PM EDT Feels worse. [place] like he had a fever last night. Coughing, congestion, wheezing, sob especially with laying down and exersion Has felt like passing out a few times. documented in this encounter Plan of Treatment Upcoming Encounters Date Type Department Care Team (Late st Contact Info) Description 01/04/2025 2:00 PM EDT Office Visit Gastroenterology, [facility] [address] [place] [address] Berenice Montano CRNP [address] [place] [address] 01/11/2025 9:50 AM EDT Anticoagulation Pharmacy, [address] [place] [address] [place] [address] 07/17/2025 1:40 PM EDT Office Visit Family Medicine [address] [place] [phone] Neo Han MD [address] [place] [address] [place] [address] Scheduled Orders Name Type Priority Associated Diagnoses Orde r Schedule GASTROINTESTINAL PATHOGEN PANEL, STOOL Lab Routine Diarrhea, unspecified type Expected: 12/28/2024 (Approximate), Expires: 12/28/2025 Scheduled Procedures Name Priority Associated Diagnoses Date/Ti [...] as of this encounter Visit Diagnoses Diagnosis Pneumonia of both lower lobes due to infectious organism- Primary Diarrhea, unspecified type Nausea Nausea alone documented in this encounter Administered Medications Inactive Administered Medications - up to 3 most recent administrations Medication Order MAR Action Action Date Dose Rate Site Albuterol Sulfate (Proventil) (2.5 MG/3ML) 0.083% inhalation solution 2.5 mg 2.5 mg, Nebulizer, ONCE, On Carmen 12/28/24 at 1400, For 1 doseIndications:Pneumonia of both lower lobes due to infectious organism Given 12/28/2024 1:40 PM EDT 2.5 mg documented in this encounter [...] 2:54 PM 12/14/2007 5:34 PM Care Teams Slubber Frame Changer Relationship Specialty Start Date End Date Neo Han MD [address] [place] [address] [place] [address] PCP - General Family Medicine 07/19/13 documented as of this encounter"
--- OUTSIDE RECORDS SUMMARY | 2025-01-24 23:16 | External Medical Summary | Summary of Care ---
Author Name Unknown Organization [facility] Address [address] [place] [address] Phone [phone] Care Team Providers Care Welding Foreman Name Role Phone Neo Han MD Primary Care Provide r Reason for Visit * Reason Comments eRx-Medication Refill Encounter Details Date Type Department Care Team (Late st Contact Info) Description 01/08/2025 Refill Gastroenterology, [facility] [address] [place] [address] Berenice Montano CRNP [address] [facility] [place] [address] Allergies Active Allergy Reactions Criticality Noted Date [...] morning. 019 Active Blood Glucose Monitoring Suppl (ONETOUCH VERIO) w/Device KIT Test daily E11.9 1 Kit 020 Active OneTouch UltraSoft LancetsIndicati ons:Type 2 diabetes mellitus with hemoglobin A1c goal of less than 8.0% ([facility]) Test daily. E11.9 100 Each 1 021 [...] TAKE ONE TABLET DAILY 90 Tablet 2 024 Active Citalopram Hydrobromide 40 MG Oral [...] mouth in the morning. 90 Tablet 3 024 2024 Discontinued Enalapril Maleate 2.5 MG Oral Tablet (Vasotec) TAKE ONE TABLET TWICE DAILY 180 Tablet 3 024 2024 Discontinued predniSONE 10 MG Oral Tablet [...] by mouth in the morning. As directed. 025 2024 Discontinued documented as of this encounter [...] mRNA, LNP-s, No Pre serve, 2-Dose Series (Cel-Fi by Nextivity) 08/12/2021,12/28/2020,12/02/2020 COVID-19, MRNA-LNP, PF, 30 M CG/0.3 mL, 12 YRS AND ABOVE, IM ([facility]) 07/30/2023 Covid-19, Mrna, Lnp-s, Pf, B ivalent, [...] encounter Miscellaneous Notes * Telephone Encounter - Roxi Mclain [facility] - 01/09/2025 11:38 AM EDTRefused Prescriptions: Disp Refills Pantoprazole Sodium 40 MG Oral Tablet Sue*90 Tab*1 Sig: TAKE ONE TABLET BY MOUTH EVERY MORNINGRefused By: ROXI MCLAIN for Refusal: Too soon * Telephone Encounter - Roxi Mclain RPh - 01/09/2025 11:37 AM EDT 90 day supply filled 01/08/25 per adherence report. Will hold off on proactive refill as pt is overdue for visit, scheduled for 01/24/25 * Telephone Encounter - Guy Lind - 01/08/2025 8:15 PM EDTPending Prescriptions: Disp Refills Pantoprazole Sodium 40 MG Oral Tablet Sue*90 Tab*1 Sig: TAKE ONE TABLET BY MOUTH EVERY MORNING * Telephone Encounter - Guy Lind - 01/08/2025 8:13 PM EDT Did you pend patient's preferred pharmacy and medication before forwarding?yes Pharmacy: [facility] [employer] [address] Pending Prescriptions: Disp Refills Pantoprazole Sodium 40 MG Oral Tablet Del*90 Tab*1 Sig: TAKE ONE TABLET BY MOUTH EVERY MORNING Last Visit: 06/01/2024 (in office), Visit date not found (telemedicine) Next Visit: Visit date not found If no future appointments scheduled, and last appointment is greater than a year ago, please schedule patient for a follow-up appointment Last date the medication was ordered: 06/27/2024 Is this request for a controlled substance?No [...] Description 01/11/2025 9:50 AM EDT Anticoagulation Pharmacy, [address] [place] [address] [place] [address] 01/16/2025 11:00 AM EDT Office Visit Pulmonary Medicine, [facility] [address] [place] [phone] Rodolfo Mcneil MD [address] [place] [address] 01/24/2025 11:00 AM EDT Office Visit Gastroenterology, [facility] [address] [place] [phone] Berenice Montano CRNP [address] [place] [address] 07/17/2025 1:40 PM EDT Office Visit Family Medicine [address] [place] [phone] Neo Han MD [address] [place] [address] [place] [address] Scheduled Procedures Name Priority Associated Diagnoses Date/Ti [...] 2:54 PM 12/14/2007 5:34 PM Care Teams Welding Foreman Relationship Specialty Start Date End Date Neo Han MD [address] [place] [address] [place] [phone] PCP - General Family Medicine 07/19/13 documented as of this encounter
--- OUTSIDE RECORDS SUMMARY | 2025-01-24 23:16 | External Medical Summary | Summary of Care ---
Author Name Unknown Organization [facility] Address [address] [place] [address] Phone [phone] Care Team Providers Care Quarrying Specialist Name Role Phone Neo Han MD Primary Care Provide r Reason for Visit * Reason Comments Acute Encounter Details Date Type Department Care Team (Late st Contact Info) Description 12/28/2024 1:00 PM EDT Office Visit Family Medicine [address] [phone] Mukesh Hernández [address] [place] [address] Pneumonia of both lower lobes due [...] 05/16/20 19 Active Blood Glucose Monitoring Suppl (JoobiliTOUCH VERIO) w/Device KIT Test daily E11.9 1 [...] Capsules daily . For 10 days Active Fire Suppression SpecialistsTouch VerSolFocus In Vitro Strip (Glucose Blood)Indication s:Type 2 [...] thrombus 01/11/2023 Coronary artery disease invo lving duckwater coronary artery of duckwater heart without angina pectoris 01/11/2023 Incisional hernia, [...] mRNA, LNP-s, No Pre serve, 2-Dose Series (ALOHA) 08/12/2021,12/28/2020,12/02/2020 COVID-19, MRNA-LNP, PF, 30 M CG/0.3 [...] Apical mural thrombus Coronary artery disease involving duckwater coronary artery of duckwater heart without angina pectoris Chronic ischemic heart disease HTN, goal below 130/80 Frequent PVCs Current Outpatient Medications Medication Sig Dispense Refill FIBER FORMULA PO CAPS Take 1 Cap by mouth daily. LANCETS MISC Use once daily as directed Dx 250.00 1 Box 5 Cyanocobalamin (VITAMIN B-12) 1000 MCG Tablet Take 1 Tablet by mouth in the morning. Blood Glucose Monitoring Suppl (Science ExchangeIO) w/Device KIT Test daily E11.9 1 Kit 0 Fire Suppression SpecialistsTouch UltraSoft Lancets Test daily. E11.9 100 Each 1 Acetaminophen 325 MG Oral Tablet (Tylenol) Take 2 Tablets by mouth every 6 hours as needed. Advanced Probiotic Oral Capsule Take by mouth 2 Capsules daily . For 10 days MoSoben In Vitro Strip (Glucose Blood) Test daily [...] LOW HDL 04/14/2008 Mixed dyslipidemia 12/06/2007 [place] (myocardial infarction) 10/18/1994 OTHER [place], Angina, Diverticulosis, Hiatal hernia, Hypertension, Hypothyroidism, CVA, Salivary gland stone right submax gland Varicella without complication age 12 Past Surgical History: Procedure Laterality Date [place] ANGIOPLASTY;SINGLE 03/24/2005 with stents COLONOSCOPY, DIAGNOSTIC (RECTUM) 1994 COLONOSCOPY, DIAGNOSTIC (RECTUM) 02/18/2007 Dr. Peña COLONOSCOPY, DIAGNOSTIC (RECTUM) 06/12/2013 COLONOSCOPY FLEXIBLE PROXIMAL DIAGNOSTIC performed by Sandoval Lama DO at ENDOSCOPY [facility] COLONOSCOPY, DIAGNOSTIC (RECTUM) 11/22/2015 diverticulosis, normal bx/COLONOSCOPY FLEXIBLE PROXIMAL DIAGNOSTIC performed by Abdelrahman Strickland ENDOSCOPY [facility] COLONOSCOPY, DIAGNOSTIC (RECTUM) 10/26/2019 inflammation on bx, diverticulosis/COLONOSCOPY FLEXIBLE PROXIMAL DIAGNOSTIC performed by Brant Zhao MD at ENDOSCOPY [facility] CORONARY ARTERY BYPASS, SINGLE [address] Skinner EGD, FLEXIBLE, DIAGNOSTIC 10/26/2019 reflux esophagitis, hiatal hernia, gastritis, repeat 2 mo/ESOPHAGOGASTRODUODENOSCOPY (EGD), FLEXIBLE, TRANSORAL, DIAGNOSTIC performed by Brant Zhao MD at ENDOSCOPY [facility] EGD, FLEXIBLE, DIAGNOSTIC 04/22/2020 hiatal hernia/biopsies normal/ESOPHAGOGASTRODUODENOSCOPY (EGD), FLEXIBLE, TRANSORAL, DIAGNOSTIC performed by Brant Zhao MD at ENDOSCOPY [facility] EGD, FLEXIBLE, DIAGNOSTIC 09/24/2021 normal bx / INPT [facility] EGD, FLEXIBLE, DIAGNOSTIC N/A 10/08/2023 portal hypertensive gastropathy/recall 2 years/EGD/MN INJECT DX/THER SUBSTANCE INTERLAMINAR LUMBAR/SACRAL W IMAGE GUIDE 12/14/2016 INJECTION SPINE LUMBAR OR SACRAL performed by Ander Boland, DO at OR [facility] INJECTION LUMBAR/SACRAL 08/05/2016 INJECTION SPINE LUMBAR OR SACRAL performed by Ander Villaseñorsins, DO at OR [facility] REMOVAL OF PROSTATE (TURP) 03/12/2010 TRANSURETHRAL RESECTION PROSTATE ELECTROSURGICAL performed by THOMAS DEWEY at OR [facility] REMOVAL OF SALIVARY STONE, SIMPLE [...] TRANSRECTAL performed by THOMAS DEWEY at OR 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 Operations and Intelligence. Blood Transfusions Not Asked [...] - 12/28/2024 1:01 PM EDT Feels worse. [place] like he had a fever last night. Coughing, congestion, wheezing, sob especially with laying down and exersion Has felt like passing out a few times. documented in this encounter Plan of Treatment Upcoming Encounters Date Type Department Care Team (Late st Contact Info) Description 01/04/2025 2:00 PM EDT Office Visit Gastroenterology, [facility] [address] [place] [phone] Berenice Montano CRNP [address] [place] [address] 01/11/2025 9:50 AM EDT Anticoagulation Pharmacy, [address] [place] [address] [place] [address] 07/17/2025 1:40 PM EDT Office Visit Family Medicine [address] [place] [phone] Neo Han MD [address] [place] [address] [place] [address] Scheduled Orders Name Type Priority Associated Diagnoses [...] 2:54 PM 12/14/2007 5:34 PM Care Teams Quarrying Specialist Relationship Specialty Start Date End Date Neo Han MD [address] [place] [address] [place] [address] PCP - General Family Medicine 07/19/13 documented as of this encounter"
--- OUTSIDE RECORDS SUMMARY | 2025-01-24 23:16 | External Medical Summary | Summary of Care ---
Author Name Unknown Organization [facility] Address [address] [place] [address] Phone [phone] Care Team Providers Care Medical Grade Shoemaker Name Role Phone Neo Han MD Primary Care Provide r Encounter Details Date Type Department Care Team (Late st Contact Info) Description 01/08/2025 Orders Only PATIENT PORTAL DO NOT DELETE THIS DEPT USED BY RADHA TRAVIS [id number] Allergies Active Allergy Reactions Criticality Noted Date Comments Niacin 01/07/2022 Other reaction(s): ITCHY SPLOTCHY RASH Niacin Er (Antihyperlipidemic) Flushing 09/04/2010 documented as of this encounter (statuses as of 01/08/2025) Medications FIBER FORMULA PO CAPS Take 1 [...] hemoglobin A1c goal of less than 8.0% ([facility]) Test daily. E11.9 100 Each 1 10/02/20 21 Active Acetaminophen 325 MG Oral Tablet (Tylenol) Take 2 Tablets by mouth every 6 hours as needed. 01/13/20 22 Active Advanced Probiotic Oral Capsule Take by mouth 2 Capsules daily . For 10 days Active Mai Tracy In Vitro Strip (Glucose Blood)Indication s:Type 2 diabetes mellitus with hemoglobin A1c goal of less than 8.0% ([facility]) Test daily E11.9 100 Strip 1 07/20/20 22 Active Metoprolol Succinate ER 50 MG Oral [...] ons:Major depressive disorder, recurrent, in partial remission ([facility]) TAKE 1 TABLET BY MOUTH IN THE [...] 2 days 30 Tablet 12/29/19 25 Active Albuterol Sulfate HFA [...] 1 Tablet before bedtime. 01/02/20 25 Active Cefuroxime Axetil 500 MG Oral Tablet (Ceftin) Take 1 Tablet by mouth in the morning and 1 Tablet before bedtime. 01/02/20 Active Doxycycline Hyclate 100 MG Oral Capsule Take 1 Capsule by mouth in the morning and 1 Capsule before bedtime. 01/02/20 25 Active predniSONE 20 MG Oral Tablet (Deltasone) Take 1 Tablet by mouth in the morning. As directed. 01/02/20 25 Active Magnesium Oxide 400 MG Oral Tablet Take 1 Tablet by mouth in the morning. 01/02/20 25 Active documented as of this encounter (statuses as of 01/08/2025) Active Problems Problem Noted Date Diagnosed Date Chronic ischemic heart disease 02/04/2024 HTN, goal below 130/80 02/04/2024 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 ([facility]) 01/11/2023 Systolic congestive heart failure 01/11/2023 S/P drug eluting coronary stent placement 2022 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 Coronary artery disease invo lving [place] coronary artery of [place] heart without angina pectoris 01/11/2023 Incisional hernia, [...] as of this encounter (statuses as of 01/08/2025) Resolved Problems Problem Noted Date Diagnosed Date [...] as of this encounter (statuses as of 01/08/2025) Immunizations Name Administration Dates Next Due COVID-19 mRNA, LNP-s, No Pre serve, 2-Dose Series (Pro V&V) 08/12/2021,12/28/2020,12/02/2020 COVID-19, MRNA-LNP, PF, 30 M CG/0.3 mL, 12 YRS AND ABOVE, IM ([facility]) 07/30/2023 Covid-19, Mrna, Lnp-s, Pf, B ivalent, [...] 2:20 PM EDT Office Visit Family Medicine [address] [place] [phone] Neo Han MD [address] [place] [address] [place] [address] 01/11/2025 9:50 AM EDT Anticoagulation Pharmacy, [address] [place] [address] [place] [address] 01/24/2025 11:00 AM EDT Office Visit Gastroenterology, [facility] [address] [place] [phone] Berenice Montano CRNP [address] [place] [address] 07/17/2025 1:40 PM EDT Office Visit Family [address] [place] [phone] Neo Han MD [address] [place] [address] [place] [address] Scheduled Procedures Name Priority Associated Diagnoses Date/Ti [...] 2:54 PM 12/14/2007 5:34 PM Care Teams Medical Grade Shoemaker Relationship Specialty Start Date End Date Neo Han MD [address] [place] [address] [place] [address] PCP - General Family Medicine 07/19/13 documented as of this encounter
--- OUTSIDE RECORDS SUMMARY | 2025-01-24 23:16 | External Medical Summary | Summary of Care ---
Author Name Unknown Organization [facility] Address [address] [place] [address] Phone [phone] Care Team Providers Care Coat Hanger Shaper Machine Operator Name Role Phone Juan Han MD Primary Care Provide r Reason for Visit * Reason Comments eRx-Medication Refill Encounter Details Date Type Department Care Team (Late st Contact Info) Description 01/02/2025 Refill Family Medicine [address] [phone] Juan Han MD [address] [place], [place] [address] [address] Encounter for long-term (current) drug use*; LOW HDL Allergies Active Allergy Reactions Criticality Noted Date Comments Niacin 01/07/2022 Other reaction(s): ITCHY SPLOTCHY RASH Niacin Er (Antihyperlipidemic) Flushing 09/04/2010 documented as of this encounter (statuses as of 01/03/2025) Medications FIBER FORMULA PO CAPS Take 1 Cap by mouth daily. Active LANCETS MISCIndications :Diabetes mellitus type 2, diet-controlled (HCC) Use once daily as directed Dx 250.00 [address] 013 Active Cyanocobalamin (VITAMIN B-12) 1000 MCG Tablet Take 1 Tablet by mouth in the morning. 019 Active Blood Glucose Monitoring Suppl (SensibleSelf VERIO) w/Device KIT Test daily E11.9 1 [...] daily E11.9 100 Strip 1 022 Active Metoprolol Succinate ER 50 MG Oral Tablet Extended Release 24 Hour (toPROL XL) Take 1 Tablet by mouth in the morning. 90 Tablet 3 024 Active Clopidogrel Bisulfate 75 MG Oral Tablet [...] a week. 3 mL 5 024 Active Enalapril Maleate 2.5 MG Oral Tablet (Vasotec) TAKE ONE TABLET TWICE DAILY 180 Tablet 3 024 Active Warfarin Sodium 3 MG Oral [...] needed for Nausea. 21 Tablet 025 Active predniSONE 10 MG Oral Tablet (Deltasone)Wanda cations:Pneumon ia of both lower lobes due to infectious organism Take 5 tabs for 2 days, 4 tabs for 2 days, 3 tabs for 2 days, 2 tabs for 2 days 1 tab for 2 days 30 Tablet 025 Active Albuterol Sulfate HFA 108 [...] the morning and 2 Puffs before bedtime. 025 Active guaiFENesin ER 600 MG Oral Tablet Extended Release 12 Hour (Humibid LA) Take 1 Tablet by mouth in the morning and 1 Tablet before bedtime. 025 Active Cefuroxime Axetil 500 MG Oral Tablet (Ceftin) Take 1 Tablet by mouth in the morning and 1 Tablet before bedtime. 025 Active Doxycycline Hyclate 100 MG Oral Capsule Take 1 Capsule by mouth in the morning and 1 Capsule before bedtime. 025 Active predniSONE 20 MG Oral Tablet (Deltasone) Take 1 Tablet by mouth in the morning. As directed. 025 Active Magnesium Oxide 400 MG Oral Tablet Take 1 Tablet by mouth in the morning. 025 Active Fenofibrate Micronized 134 MG Oral CapsuleIndicati ons:Lipoprotein deficiency Take 1 Capsule by mouth in the morning. 90 Capsule 1 024 2024 Discontinued documented as of this encounter (statuses as of 01/03/2025) Active Problems Problem Noted Date Diagnosed Date Chronic ischemic heart disease 02/04/2024 HTN, goal below 130/80 02/04/2024 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 ([facility]) 01/11/2023 Systolic congestive heart failure 01/11/2023 S/P drug eluting coronary stent placement 2022 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 Coronary artery disease invo lving [place] coronary artery of [place] heart without angina pectoris 01/11/2023 Incisional hernia, [...] as of this encounter (statuses as of 01/03/2025) Resolved Problems Problem Noted Date Diagnosed Date [...] as of this encounter (statuses as of 01/03/2025) Immunizations Name Administration Dates Next Due COVID-19 [...] encounter Miscellaneous Notes * Telephone Encounter - Giovanni Yang [facility] - 01/03/2025 2:06 PM EDT Signed Prescriptions: Disp Refills Fenofibrate Micronized 134 MG Oral Capsule 90 Cap*1 Sig: Take 1 Capsule by mouth in the morning.Authorizing Provider: JUAN HANOrderade User: GIOVANNI YANG documented in this encounter Plan of Treatment Upcoming Encounters Date Type Department Care Team (Late st Contact Info) Description 01/09/2025 2:20 PM EDT Office Visit Family Medicine [address] [place] [phone] Juan Han MD [address] [place] [address] [place] [address] 01/11/2025 9:50 AM EDT Anticoagulation Pharmacy, [address] [place] [address] [place] [address] 01/24/2025 11:00 AM EDT Office Visit Gastroenterology, [facility] [address] [place] [phone] Berenice Montano CRNP [address] [place] [address] 07/17/2025 1:40 PM EDT Office Visit Family [address] [place] [phone] Juan Han MD [address] [place] [address] [place] [address] Scheduled Orders Name Type Priority Associated Diagnoses Orde r Schedule MAGNESIUM Lab Routine Encounter for long-term (current) drug use Expected: 01/10/2025 (Approximate), Expires: 01/10/2026 VITAMIN B12 Lab Routine Encounter for long-term (current) drug use Expected: 01/10/2025 (Approximate), Expires: 01/10/2026 LIPID PANEL WITH DIRECT LDL IF TG IS HIGH Lab Routine LOW HDL Expected: 01/10/2025 (Approximate), Expires: 01/10/2026 Scheduled Procedures Name Priority Associated Diagnoses Date/Ti [...] as of this encounter Visit Diagnoses Diagnosis Encounter for long-term (current) drug use- Primary Encounter for long-term (current) use of other medications LOW HDL Lipoprotein deficiencies documented in this encounter Advance Directives * [...] 2:54 PM 12/14/2007 5:34 PM Care Teams Coat Hanger Shaper Machine Operator Relationship Specialty Start Date End Date Juan Han MD [address] [place] [address] [place] [address] PCP - General Family Medicine 07/19/13 documented as of this encounter
--- OUTSIDE RECORDS SUMMARY | 2025-01-24 23:16 | External Medical Summary | Summary of Care ---
Author Name Unknown Organization [facility] Address [address] [place] [address] Phone [phone] Care Team Providers Care Family Service Center Director Name Role Phone Neo Han MD Primary Care Provide r Reason for Visit * Reason Comments Acute Encounter Details Date Type Department Care Team (Late st Contact Info) Description 12/28/2024 1:00 PM EDT Office Visit Family Medicine [address] [phone] Mukesh Hernández [address] [place] [address] Pneumonia of both lower lobes due [...] 05/16/20 19 Active Blood Glucose Monitoring Suppl ([email or web address].comTOUCH VERIO) w/Device KIT Test daily E11.9 1 [...] Capsules daily . For 10 days Active CIBDOTouch VerMedlanes In Vitro Strip (Glucose Blood)Indication s:Type 2 [...] thrombus 01/11/2023 Coronary artery disease invo lving [place] coronary artery of [place] heart without angina pectoris 01/11/2023 Incisional hernia, [...] mRNA, LNP-s, No Pre serve, 2-Dose Series (Erenis) 08/12/2021,12/28/2020,12/02/2020 COVID-19, MRNA-LNP, PF, 30 M CG/0.3 [...] Apical mural thrombus Coronary artery disease involving [place] coronary artery of [place] heart without angina pectoris Chronic ischemic heart disease HTN, goal below 130/80 Frequent PVCs Current Outpatient Medications Medication Sig Dispense Refill FIBER FORMULA PO CAPS Take 1 Cap by mouth daily. LANCETS MISC Use once daily as directed Dx 250.00 [address] 5 Cyanocobalamin (VITAMIN B-12) 1000 MCG Tablet Take 1 Tablet by mouth in the morning. Blood Glucose Monitoring Suppl (Data MaidIO) w/Device KIT Test daily E11.9 1 Kit 0 CIBDOTouch UltraSoft Lancets Test daily. E11.9 100 Each 1 Acetaminophen 325 MG Oral Tablet (Tylenol) Take 2 Tablets by mouth every 6 hours as needed. Advanced Probiotic Oral Capsule Take by mouth 2 Capsules daily . For 10 days DiscGenicsben In Vitro Strip (Glucose Blood) Test daily [...] LOW HDL 04/14/2008 Mixed dyslipidemia 12/06/2007 Old MT (myocardial infarction) 10/18/1994 OTHER MT, Angina, Diverticulosis, Hiatal hernia, Hypertension, Hypothyroidism, CVA, Salivary gland stone right submax gland Varicella without complication age 12 Past Surgical History: Procedure Laterality Date BALLON ANGIOPLASTY;SINGLE 03/24/2005 with stents COLONOSCOPY, DIAGNOSTIC (RECTUM) 1994 COLONOSCOPY, DIAGNOSTIC (RECTUM) 02/18/2007 Dr. Peña COLONOSCOPY, DIAGNOSTIC (RECTUM) 06/12/2013 COLONOSCOPY FLEXIBLE PROXIMAL DIAGNOSTIC performed by Sandoval Lama DO at ENDOSCOPY [facility] COLONOSCOPY, DIAGNOSTIC (RECTUM) 11/22/2015 diverticulosis, normal bx/COLONOSCOPY FLEXIBLE PROXIMAL DIAGNOSTIC performed by Abdelrahman Strickland ENDOSCOPY [facility] COLONOSCOPY, DIAGNOSTIC (RECTUM) 10/26/2019 inflammation on bx, diverticulosis/COLONOSCOPY FLEXIBLE PROXIMAL DIAGNOSTIC performed by Brant Zhao MD at ENDOSCOPY [facility] CORONARY ARTERY BYPASS, SINGLE [address] Skinner EGD, FLEXIBLE, DIAGNOSTIC 10/26/2019 reflux esophagitis, hiatal hernia, gastritis, repeat 2 mo/ESOPHAGOGASTRODUODENOSCOPY (EGD), FLEXIBLE, TRANSORAL, DIAGNOSTIC performed by Brant Zhao MD at ENDOSCOPY [facility] EGD, FLEXIBLE, DIAGNOSTIC 04/22/2020 hiatal hernia/biopsies normal/ESOPHAGOGASTRODUODENOSCOPY (EGD), FLEXIBLE, TRANSORAL, DIAGNOSTIC performed by Brant Zhao MD at ENDOSCOPY [facility] EGD, FLEXIBLE, DIAGNOSTIC 09/24/2021 normal bx / INPT [facility] EGD, FLEXIBLE, DIAGNOSTIC N/A 10/08/2023 portal hypertensive gastropathy/recall 2 years/EGD/[place] INJECT DX/THER SUBSTANCE INTERLAMINAR LUMBAR/SACRAL W IMAGE GUIDE 12/14/2016 INJECTION SPINE LUMBAR OR SACRAL performed by Ander Boland, DO at OR [facility] INJECTION LUMBAR/SACRAL 08/05/2016 INJECTION SPINE LUMBAR OR SACRAL performed by Ander Villaseñorsins, DO at OR [facility] REMOVAL OF PROSTATE (TURP) 03/12/2010 TRANSURETHRAL RESECTION PROSTATE ELECTROSURGICAL performed by THOMAS DEWEY at OR [facility] REMOVAL OF SALIVARY STONE, SIMPLE removed right [...] TRANSRECTAL performed by THOMAS DEWEY at OR [facility] Social History Socioeconomic History Marital status: Spouse name: Myrtle Márquez Number of children: 0 Years of education: 14 Highest education level: Not on file Occupational History Occupation: correctional mtgr. !! Comment: [employer] since 1979 Tobacco Use Smoking status: Former [...] Other Topics Concern Service Yes Comment: [employer] [phone]. Operations and Intelligence. Blood Transfusions Not Asked [...] - 12/28/2024 1:01 PM EDT Feels worse. Catlin like he had a fever last night. Coughing, congestion, wheezing, sob especially with laying down and exersion Has felt like passing out a few times. documented in this encounter Plan of Treatment Upcoming Encounters Date Type Department Care Team (Late st Contact Info) Description 01/04/2025 2:00 PM EDT Office Visit Gastroenterology, [facility] [address] [place] [address] Berenice Montano CRNP [address] [place] [address] 01/11/2025 9:50 AM EDT Anticoagulation Pharmacy, [address] [place] [address] [place] [address] 07/17/2025 1:40 PM EDT Office Visit Family Medicine [address] [place] [phone] Neo Han MD [address] [place] [address] [place] [address] Scheduled Orders Name Type Priority Associated Diagnoses [...] 2:54 PM 12/14/2007 5:34 PM Care Teams Family Service Center Director Relationship Specialty Start Date End Date Neo Han MD [address] [place] [address] [place] [address] PCP - General Family Medicine 07/19/13 documented as of this encounter"
--- OUTSIDE RECORDS SUMMARY | 2025-01-24 23:16 | External Medical Summary | Summary of Care ---
Author Name Unknown Organization [facility] Address [address] [place] [address] Phone [phone] Care Team Providers Care Property Master Name Role Phone Neo Han MD Primary Care Provide r Reason for Visit * Reason Onset Date Comments No Show 12/29/[address] [facility] No Show Auto mation Encounter Details Date Type Department Care Team (Late st Contact Info) Description 12/29/2024 Telephone Cardiology, [place] [address] [facility] [place] [phone] Nellie Frausto PA-C [address] [facility] [place] [address] No Show ([place] No Show Automation) Allergies Active Allergy Reactions Criticality Noted Date Comments Niacin 01/07/2022 Other reaction(s): ITCHY SPLOTCHY RASH Niacin Er (Antihyperlipidemic) Flushing 09/04/2010 documented as of this encounter (statuses as of 12/29/2024) Medications FIBER FORMULA PO CAPS Take 1 [...] as of this encounter (statuses as of 12/29/2024) Active Problems Problem Noted Date Diagnosed Date Chronic ischemic heart disease 02/04/2024 HTN, goal below 130/80 02/04/2024 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 ([facility]) 01/11/2023 Systolic congestive heart failure 01/11/2023 S/P drug eluting coronary stent placement 2022 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 Coronary artery disease invo lving [place] coronary artery of [place] heart without angina pectoris 01/11/2023 Incisional hernia, [...] as of this encounter (statuses as of 12/29/2024) Resolved Problems Problem Noted Date Diagnosed Date [...] as of this encounter (statuses as of 12/29/2024) Immunizations Name Administration Dates Next Due COVID-19 mRNA, LNP-s, No Pre serve, 2-Dose Series (CashYou) 08/12/2021,12/28/2020,12/02/2020 COVID-19, MRNA-LNP, PF, 30 M CG/0.3 [...] encounter Miscellaneous Notes * Telephone Encounter - [facility], No Show - 12/29/2024 9:02 AM EDT Dear Juanito Yoon, Looks like you missed an appointment with NELLIE FRAUSTO on 12/26/2024 at 10:00 AM. If you haven't already rescheduled, you have a couple of options: Reschedule in [email or web address] Call us at [phone] Can't make a future appointment? Cancel and let someone else have your spot! It's easy to do via Bolong[employer] Trevor or by calling us. [facility] We hope to see you back in our office soon. Sincerely, NELLIE FRAUSTO documented in this encounter Plan of Treatment Upcoming Encounters Date Type Department Care Team (Late st Contact Info) Description 01/04/2025 2:00 PM EDT Office Visit Gastroenterology, [facility] [address] [place] [address] Berenice Montano CRNP [address] [place] [address] 01/11/2025 9:50 AM EDT Anticoagulation Pharmacy, [address] [place] [address] [place] [address] 07/17/2025 1:40 PM EDT Office Visit Family Medicine [address] [place] [phone] Neo Han MD [address] [place] [address] [place] [address] Scheduled Procedures Name Priority Associated Diagnoses Date/Ti [...] 2:54 PM 12/14/2007 5:34 PM Care Teams Property Master Relationship Specialty Start Date End Date Neo Han MD [address] [place] [address] [place] [address] PCP - General Family Medicine 07/19/13 documented as of this encounter
--- OUTSIDE RECORDS SUMMARY | 2025-01-24 23:16 | External Medical Summary | Summary of Care ---
Author Name Unknown Organization [facility] Address [address] [place] [address] Phone [phone] Care Team Providers Care Speech Therapy Teacher Name Role Phone Neo Han MD Primary Care Provide r Reason for Visit * Reason Onset Date Comments Hospital Follow-Up 01/02/2025 [facility] Encounter Details Date Type Department Care Team (Late st Contact Info) Description 01/02/2025 Telephone [address]illary [address] [place] [address] Rosalinda Benson, RN Hospital Follow-Up ([facility]) Allergies Active Allergy Reactions Criticality Noted Date [...] 25 Active predniSONE 10 MG Oral Tablet (Deltasone)Wanda [...] or Wheezing. 6.7 g 12/29/19 25 Active Budesonide-Form oterol Fumarate 160-4.5 MCG/ACT [...] 1 Tablet before bedtime. 01/02/20 25 Active Doxycycline Hyclate 100 MG Oral Capsule Take 1 Capsule by mouth in the morning and 1 Capsule before bedtime. 01/02/20 25 Active predniSONE 20 MG Oral Tablet (Deltasone) Take 1 Tablet by mouth in the morning. As directed. 01/02/20 25 Active Magnesium Oxide 400 MG Oral Tablet Take 1 Tablet by mouth in the morning. 01/02/20 25 Active Amoxicillin-Pot Clavulanate 875-125 MG Oral Tablet (Augmentin)Wanda cations:Pneumon ia of both lower lobes due to infectious organism Take 1 Tablet by mouth in the morning and 1 Tablet before bedtime. Do all this for 7 days. 14 Tablet 12/29/19 25 025 Discontin ued(Medic ation List Clean Up) Azithromycin 250 MG Oral Tablet (Zithromax Z-Garland)Indicatio ns:Pneumonia of both lower lobes due to infectious organism Take two tablets by mouth on first day, then 1 tablet daily until gone 6 Tablet 12/29/19 25 025 Discontin ued(Medic ation List Clean Up) documented as of this encounter (statuses as of 01/03/2025) Active Problems Problem Noted Date Diagnosed Date Chronic ischemic heart disease 02/04/2024 HTN, goal below 130/80 02/04/2024 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 ([place]) 01/11/2023 Systolic congestive heart failure 01/11/2023 S/P drug eluting coronary stent placement 2022 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 Coronary artery disease invo lving [place] coronary artery of [place] heart without angina pectoris 01/11/2023 Incisional hernia, [...] Telephone Encounter - Rosalinda Benson RN - 01/03/2025 9:06 AM EDT Transitions of Care Note Reason for Referral:Recent Admission Phone visit for follow up: ehsan Admitted to: [facility], Date: 12.29.24 Discharged to: home, Date: 01.01.25 Diagnosis driving hospitalization: Acute hypoxic resp failure secondary to RSV Pulmonary edema Sepsis CAP (community acquired pneumonia CAD (coronary artery disease): Myocardial injury: Apical mural thrombus: New budesonide-formoterol [Symbicort] 160-4.5 mcg/actuation HFA aerosol inhaler 2 puff inhalation BID Qty: 10.2 0RF guaifenesin [Mucinex] 600 mg Tablet Extended Release 12hr 600 mg PO Q12 Qty: 14 0RF prednisone 20 mg tablet 20 mg PO UD Qty: 10 0RF Rx Instructions: Take 2 tabs for next 3 days, then take 1 tab for 4 days doxycycline hyclate 100 mg Capsule 100 mg PO BID Qty: 3 0RF magnesium oxide 400 mg (241.3 mg magnesium) Tablet 400 mg PO DAILY Qty: 5 0RF cefuroxime axetil 500 mg tablet 500 mg PO BID Qty: 2 0RF prednisone 10 mg tablet 10 mg PO UD Hold Instructions: Resume on 01/08/25. resume after you finish prednisone taper Rx Instructions: 5 tabs for 2 days, 4 tabs for 2 days, 3 tabs for 2 days, 2 tabs for 2 days, 1 tab for 2 days Discontinued azithromycin 250 mg tablet 250 mg PO DIRECTED Rx Instructions: 2 tabs po on first day; 1 tab po daily until gone amoxicillin-pot clavulanate 875-125 mg tablet 1 tab PO BID Patient given Flutter valve , incentive spirometry Source/Contact: Patient SUBJECTIVE Consent: Verbal consent for review of hospital discharge: Yes REVIEW OF SYSTEMS Patient/Other Reports: Current patient/caregiver problems or concerns: doing better CV: Denies problems Pulmonary: Cough- but feels so much better Chills/Sweats/Fever:Denies chills/sweats Denies fever Appetite:Denies problems such as nausea, vomiting, burning, decreased appetite Current diet: regular Bowel: denies problems Bladder: denies problems Wound (If applicable): N/A Pain:Denies Sleep:Denies problems, patient has slept "great the last 2 days" FUNCTIONAL STATUS: ADL'S: Needs Assistance With:N/A as pt is independent IADL'S: Needs Assistance With:N/A as pt is independent Cognitive and Mental Health: denies problems, alert and oriented x 3, and able to communicate, understand instructions, process information. MEDICATION RECONCILIATION Medications: Reports all medications taken as prescribed. ASSESSMENT Medication Risk Assessment: No risks identified Discharge instructions available for review? Yes PLAN Symptom Monitoring Interventions:Member/caregiver education - signs and symptoms to contact PrimaryCare (DO NOT DELETE-Three llamas symptoms patient is to report to PCP) 1. Worsening cough 2. sob 3. fevers Truck TechnicianBusiness Office Technology Instructor of Care interventions/Action Plan: 5 - 7 day follow-up with PCP in place - Date: 01.09.25 Educated on role of EHSAN completed with patient/caregiver. Educated patient/caregiver on patient right to have input on EHSAN plan of care. Verification of Home Health/DME if indicated: No Identified Care Gaps: Yes Care Gaps closed this call: Transition of Care follow-up communication Re-evaluation of Plan of Care and progress towards goals achievement: Patient education this visit: Verbal, patient to stay hydrated, clear lungs often, follow up and schedule pulmonary appointment and reschedule his cardiac appointment he missed while in the hospital. Plan to follow-up as previously scheduled, instructed to call Primary Care Provider with change in symptoms or as needed before next follow-up, verbalizes understanding and agrees with plan. Rosalinda Benson RN * Telephone Encounter - Rosalinda Benson RN - 01/02/2025 1:24 PM EDT Transitions of Care Note Reason for Referral:Recent Admission Phone visit for follow up: ehsan Admitted to: [facility], Date: 12.29.24 Discharged to: home, Date: 01.01.25 Diagnosis driving hospitalization: Acute hypoxic resp. failure secondary to RSV Pulmonary edema Sepsis CAP (community acquired pneumonia CAD (coronary artery disease): Myocardial injury: Apical mural thrombus: New budesonide-formoterol [Symbicort] 160-4.5 mcg/actuation HFA aerosol inhaler 2 puff inhalation BID Qty: 10.2 0RF guaifenesin [Mucinex] 600 mg Tablet Extended Release 12hr 600 mg PO Q12 Qty: 14 0RF prednisone 20 mg tablet 20 mg PO UD Qty: 10 0RF Rx Instructions: Take 2 tabs for next 3 days, then take 1 tab for 4 days doxycycline hyclate 100 mg Capsule 100 mg PO BID Qty: 3 0RF magnesium oxide 400 mg (241.3 mg magnesium) Tablet 400 mg PO DAILY Qty: 5 0RF cefuroxime axetil 500 mg tablet 500 mg PO BID Qty: 2 0RF prednisone 10 mg tablet 10 mg PO UD Hold Instructions: Resume on 01/08/25. resume after you finish prednisone taper Rx Instructions: 5 tabs for 2 days, 4 tabs for 2 days, 3 tabs for 2 days, 2 tabs for 2 days, 1 tab for 2 days Discontinued azithromycin 250 mg tablet 250 mg PO DIRECTED Rx Instructions: 2 tabs po on first day; 1 tab po daily until gone amoxicillin-pot clavulanate 875-125 mg tablet 1 tab PO BID Patient given Flutter valve , incentive spirometry Attempted Phone Call First Attempt Call Outcome Left Voicemail/Message Rosalinda Benson RN documented in this encounter Plan of Treatment Upcoming Encounters Date Type Department Care Team (Late st Contact Info) Description 01/09/2025 2:20 PM EDT Office Visit Family Medicine [address] [place] [phone] Neo Han MD [address] [place] [address] [place] [address] 01/11/2025 9:50 AM EDT Anticoagulation Pharmacy, [address] [place] [address] [place] [address] 01/24/2025 11:00 AM EDT Office Visit Gastroenterology, [facility] [address] [place] [phone] Berenice Montano CRNP [address] [place] [phone] 07/17/2025 1:40 PM EDT Office Visit Family Medicine [address] [place] [phone] Neo Han MD [address] [place] [address] [place] [address] Scheduled Procedures Name Priority Associated Diagnoses Date/Ti [...] 2:54 PM 12/14/2007 5:34 PM Care Teams Speech Therapy Teacher Relationship Specialty Start Date End Date Neo Han MD [address] [place] [address] [place] [address] PCP - General Family Medicine 07/19/13 documented as of this encounter
--- OUTSIDE RECORDS SUMMARY | 2025-01-24 23:16 | External Medical Summary | Summary of Care ---
Author Name Unknown Organization [facility] Address [address] [place] [address] Phone [phone] Care Team Providers Care Tombstone Erector Helper Name Role Phone Neo Han MD Primary Care Provide r Reason for Visit * Reason Onset Date Comments Appointment 01/09/2025 Cardiology Encounter Details Date Type Department Care Team (Late st Contact Info) Description 01/09/2025 Telephone Family Medicine [address] [phone] Neo Han MD [address] [place] [id number] Appointment (Cardiology ) Allergies Active Allergy [...] 05/16/20 19 Active Blood Glucose Monitoring Suppl ([employer] VERIO) w/Device KIT Test daily E11.9 1 [...] thrombus 01/11/2023 Coronary artery disease invo lving [place] coronary artery of [place] heart without angina pectoris 01/11/2023 Incisional hernia, [...] mRNA, LNP-s, No Pre serve, 2-Dose Series ([employer]) 08/12/2021,12/28/2020,12/02/2020 COVID-19, MRNA-LNP, PF, 30 M CG/0.3 [...] pt, was not seen by cardio at [facility]. Requires follow up * Telephone Encounter [...] Description 01/11/2025 9:50 AM EDT Anticoagulation Pharmacy, [address] [place] [address] [place] [address] 01/16/2025 11:00 AM EDT Office Visit Pulmonary Medicine, [facility] [address] [place] [phone] Rodolfo Mcneil [facility] [address] [facility] [address] 01/24/2025 11:00 AM EDT Office Visit Gastroenterology, [facility] [address] [place] [phone] Berenice Montano CRNP [address] [place] [address] 07/17/2025 1:40 PM EDT Office Visit Family Medicine [address] [place] [phone] Neo Han MD [address] [place] [address] [place] [address] Scheduled Procedures Name Priority Associated Diagnoses Date/Ti [...] 2:54 PM 12/14/2007 5:34 PM Care Teams Tombstone Erector Helper Relationship Specialty Start Date End Date Neo Han MD [address] [place] [address] [place] [address] PCP - General Family Medicine 07/19/13 documented as of this encounter
[2025-01-25 03:48] LABS: Albumin Globulin Ratio 1.7 (0.9-2); BUN Creatinine Ratio 19.8 (10-20); Calcium 8.6 mg/dl (8.6-10.3); Creatinine Clr Calc Pharmacy 58.9 ml/min; Globulin 2.4 gm/dl (2.5-4.0); Magnesium 1.8 mg/dl (1.7-2.4); Potassium 3.7 mmol/L (3.5-5.1); Total Protein 6.4 gm/dl (6.0-8.3)
[2025-01-25 03:53] LABS: Mean Corpuscular Hgb Conc 33.3 g/dL (32.0-36.0); Mean Corpuscular Volume 89.9 fL (80.0-100.0); Mean Platelet Volume 11.8 fL (9.4-12.4); Platelet Count 151 K/uL (130-400); RDW Coefficient of Variation 14.3 % (11.5-14.5); RDW Standard Deviation 46.4 fL (36.4-46.3); Red Blood Count 3.67 M/uL (4.70-6.10); White Blood Count 4.59 K/ul (4.8-10.8)
[2025-01-25 03:54] LABS: Troponin I High Sensitivity 46.7 pg/ml (0-20)
[2025-01-25 04:00] LABS: INR 2.4 (0.9-1.1); Prothrombin Time 23.7 Seconds (9.0-12.0)
--- NOTE | 2025-01-25 05:29 | Electrocardiogram Report ---
Test Reason : Blood Pressure : */* mmHG Vent. Rate : 121 BPM Atrial Rate : 119 BPM P-R Int : 162 ms QRS Dur : 136 ms QT Int : 346 ms P-R-T Axes : 65 -57 111 degrees QTcB Int : 491 ms Sinus tachycardia with frequent Premature supraventricular complexes and PVCs Left axis deviation Left ventricular hypertrophy with QRS widening ( R in aVL , [place] product ) Non-specific intra-ventricular conduction block T wave abnormality, consider lateral ischemia Abnormal ECG When compared with ECG of 29-Dec-2024 13:56, Premature ventricular complexes are now Present Confirmed by Joseph Hebert ([id number]) on 01/25/2025 5:29:24 AM Referred By: Confirmed By: Joseph Hebert
[2025-01-25] MEDS: LEVOTHYROXINE SODIUM 25 MCG TABLET PO SCH (06:21)
--- NOTE | 2025-01-25 08:48 | Hospitalist Progress Note ---
Date of Service January 25, 2025 Assessment & Plan (1) Heart failure, systolic, with acute decompensation: (2) Hypomagnesemia: (3) CAD (coronary artery disease): (4) HTN (hypertension): (5) Hyperlipidemia: (6) COPD (chronic obstructive pulmonary disease): (7) History of tobacco abuse: (8) Cirrhosis of liver: (9) Hypothyroidism: (10) Apical mural thrombus: Plan This is a 79-year-old male with PMH of CAD, DM II, history of apical mural thrombus on coumadin, HTN, history of cirrhosis of liver, hypothyroidism, hyperlipidemia, polyneuropathy, history of CVA, B12 deficiency, acquired cyst of kidney, BPH, cervical spondylosis, depression, primary insomnia who presents for progressively worsening shortness of breath x 5 days and was found to have decompensated systolic heart failure. Acute decompensated systolic heart failure Recently admitted for RSV bronchiolitis, had echo during admission that showed reduced EF of revealed newly reduced EF of 25-30% (from 40%) with moderate- severe LV hypokinesis [place] better on discharge but has progressive dyspnea on exertion x 5 days Given 20mg IV Lasix in ED and placed on bipap due to work of breathing, no documented hypoxia CXR with stable exam; chronic cardiomegaly and pulmonary vascular congestion in a patient has had prior coronary artery bypass surgery and a left shoulder joint replacement BNP 1090, troponin 39 with repeat pending ECG with sinus rhythm with frequent PVCs, LAD, nonspecific intraventricular conduction block similar to previous Will give an additional for a total of 40mg IV lasix tonight Potassium chloride 40meq x 1 Strict I&Os, daily weights Continue reduced Toprol dose of 25mg daily Cardiology consulted Hypomagnesemia Initial Mag 1.4, replaced in ED Monitor Elevated troponin, CAD No acute ECG changes, some chest discomfort earlier today with vomiting x 1 at 0900, pain is still a 3/4, improved with ntg Troponin elevated at 39, repeat 54. Likely ischemic demand 2/2 above but will monitor Most recent cath in December 2022 in setting of unstable angina, s/p PCI to OM 3 with single MAYLIN Continue Toprol at 25 mg, atorvastatin Repeat ECG in AM Anticoagulated with coumadin - will hold PM dose and consider transition to IV heparin once INR 2 if trop bumps overnight, cards to evaluate in AM admitting team discussed with Dr. Jacek - chest pain likely 2/2 CHF but suggests addition of 324mg aspirin now 4/10 Pt on 2L of suppl. O2 via HI Cardiology consulted - cont. diuresis 40 lasix bid, start spironolactone, asa. Plan to transition to Entresto from aceinh. Plan to repeat echo DM II A1c 5.5 in December 2024 Hold home agents SSI while in-patient BSG AC HS COPD Appears compensated Completed abx and pred taper from last admission Continue Spiriva Awaiting PFT results from 01/23 H/o apical mural thrombus Noted during December 2022 current INR 2.4 Daily INR while admitted History of liver cirrhosis Follows with Jocy [facility]. No abnormalities noted on LFTs Continue diuresis as above, monitor Hypothyroidism Continue levothyroxine DVT Ppx: coumadin Code status: FULL PCP: Dr. Han Dispo: PCU Admission and Anticipated Discharge Date Admission Date: January 24, 2025 Subjective Pt seen in follow up of dyspnea, secondary to acute CHF recently hospitalized w/ RSV, hypoxia, seen by pulm. at that time Currently lying in bed in NAD, on NC 2L, reports feeling little better than yesterday reports sitting in the chair was more comfortable for his breathing no fever, chills, no abd. pain, n/v Review of Systems Review of Systems: All systems reviewed & are unremarkable except as noted in Subjective Physical Exam Physical Exam: GENERAL: Alert and oriented x3. NAD, on 2L NC HEENT: NC/AT. Pupils equal, round and reactive to light. Oral mucosa moist. NECK: No JVD, no neck masses. HEART: S1 and S2 heard. Regular rate and rhythm. No murmur, no gallop. RESPIRATORY: No accessory muscle use. No wheezing, bb crackles. ABDOMEN: Soft, bowel sounds present, nontender, + distention. NEURO: awake, alert, answers appropriately, No facial asymmetry. Speech is clear. Moves extremities. EXTREMITIES: trace ble edema, no erythema seen. Results & Data Results & Data Vital Signs (Past 12 Hours) Vital Signs Temp Pulse Pulse Resp BP Pulse Ox O2 Del Method 01/25/25 08:03 36.8 C 88 22 121/74 95 Nasal Cannula 01/25/25 02:36 36.5 C 65 18 95/50 L 92 Nasal Cannula 01/24/25 23:50 36.7 C 90 18 114/76 90 Nasal Cannula 01/24/25 22:00 111 H 01/24/25 21:34 96 H 34 H 96 O2 Flow Rate 01/25/25 08:03 2 01/25/25 02:36 3 01/24/25 23:50 3 01/24/25 22:00 01/24/25 21:34 1 Laboratory Results 01/25/25 01/25/25 01/24/25 Range/Units 07:34 02:47 20:52 WBC 4.59 L (4.8-10.8) K/ul RBC 3.67 L (4.70-6.10) M/uL Hgb 11.0 L (14.0-18.0) g/dl Hct 33.0 L (42.0-52.0) % MCV 89.9 (80.0-100.0) fL MCH 30.0 (25.0-34.0) pg MCHC 33.3 (32.0-36.0) g/dL RDW Std Deviation 46.4 H (36.4-46.3) fL RDW Coeff of Guera 14.3 (11.5-14.5) % Plt Count 151 (130-400) K/uL MPV 11.8 (9.4-12.4) fL Immature Gran % (Auto) % Neut % (Auto) % Lymph % (Auto) % [place] % (Auto) % Eos % (Auto) % Baso % (Auto) % Neut # (Auto) (1.40-6.50) K/uL Lymph # (Auto) (1.20-3.40) K/uL [place] # (Auto) (0.11-0.59) K/uL Eos # (Auto) (0.00-0.50) K/uL Baso # (Auto) (0.00-0.20) K/uL Immature Gran # (Auto) (0.01-0.20) K/uL PT 23.7 H (9.0-12.0) Seconds INR 2.4 H (0.9-1.1) APTT (21-31) Seconds PTT Ratio Sodium 138 (136-145) mmol/L Potassium 3.7 (3.5-5.1) mmol/L Chloride 105 (98-107) mmol/L Carbon Dioxide 24 (21-32) mmol/L Anion Gap 9 (3-11) BUN 22 (6-23) mg/dl Creatinine 1.11 (0.6-1.4) mg/dl Est Cr Clr Drug Dosing 58.9 ml/min eGFR 68.39 BUN/Creatinine Ratio 19.8 (10-20) Glucose 132 H (70-99(Fasting)) mg/dl POC Glucose 142 H (70-99) mg/dl Calcium 8.6 (8.6-10.3) mg/dl Magnesium 1.8 (1.7-2.4) mg/dl Total Bilirubin 1.0 (0.2-1.0) mg/dl AST 12 L (13-39) U/L ALT 7 (7-52) U/L Alkaline Phosphatase 47 (34-104) U/L Troponin I High Sens 46.7 H 50.6 H* (0-20) pg/ml B-Natriuretic Peptide (0-100) pg/ml Total Protein 6.4 (6.0-8.3) gm/dl Albumin 4.0 (3.4-5.0) gm/dl Globulin 2.4 L (2.5-4.0) gm/dl Albumin/Globulin Ratio 1.7 (0.9-2) Lipase (11-82) U/L SARS-CoV-2 (PCR) Influenza A (RT-PCR) Influenza Type A (PCR) (Neg) Influenza B (RT-PCR) Influenza Type B (PCR) (Neg) RSV (RT-PCR) 01/24/25 01/24/25 01/24/25 Range/Units 20:26 17:36 17:36 WBC (4.8-10.8) K/ul RBC (4.70-6.10) M/uL Hgb (14.0-18.0) g/dl Hct (42.0-52.0) % MCV (80.0-100.0) fL MCH (25.0-34.0) pg MCHC (32.0-36.0) g/dL RDW Std Deviation (36.4-46.3) fL RDW Coeff of Guera (11.5-14.5) % Plt Count (130-400) K/uL MPV (9.4-12.4) fL Immature Gran % (Auto) % Neut % (Auto) % Lymph % (Auto) % [place] % (Auto) % Eos % (Auto) % Baso % (Auto) % Neut # (Auto) (1.40-6.50) K/uL Lymph # (Auto) (1.20-3.40) K/uL [place] # (Auto) (0.11-0.59) K/uL Eos # (Auto) (0.00-0.50) K/uL Baso # (Auto) (0.00-0.20) K/uL Immature Gran # (Auto) (0.01-0.20) K/uL PT (9.0-12.0) Seconds INR (0.9-1.1) APTT (21-31) Seconds PTT Ratio Sodium (136-145) mmol/L Potassium (3.5-5.1) mmol/L Chloride (98-107) mmol/L Carbon Dioxide (21-32) mmol/L Anion Gap (3-11) BUN (6-23) mg/dl Creatinine (0.6-1.4) mg/dl Est Cr Clr Drug Dosing ml/min eGFR BUN/Creatinine Ratio (10-20) Glucose (70-99(Fasting)) mg/dl POC Glucose 220 H (70-99) mg/dl Calcium (8.6-10.3) mg/dl Magnesium (1.7-2.4) mg/dl Total Bilirubin (0.2-1.0) mg/dl AST (13-39) U/L ALT (7-52) U/L Alkaline Phosphatase (34-104) U/L Troponin I High Sens (0-20) pg/ml B-Natriuretic Peptide (0-100) pg/ml Total Protein (6.0-8.3) gm/dl Albumin (3.4-5.0) gm/dl Globulin (2.5-4.0) gm/dl Albumin/Globulin Ratio (0.9-2) Lipase (11-82) U/L SARS-CoV-2 (PCR) NEGATIVE Influenza A (RT-PCR) Cancelled Influenza Type A (PCR) Negative (Neg) Influenza B (RT-PCR) Cancelled Influenza Type B (PCR) Negative (Neg) RSV (RT-PCR) Negative Cancelled 04/09/25 04/09/25 04/09/25 Range/Units 17:36 17:21 15:05 WBC 5.17 (4.8-10.8) K/ul RBC 3.88 L (4.70-6.10) M/uL Hgb 11.6 L (14.0-18.0) g/dl Hct 34.6 L (42.0-52.0) % MCV 89.2 (80.0-100.0) fL MCH 29.9 (25.0-34.0) pg MCHC 33.5 (32.0-36.0) g/dL RDW Std Deviation 45.7 (36.4-46.3) fL RDW Coeff of Guera 14.2 (11.5-14.5) % Plt Count 157 (130-400) K/uL MPV 12.1 (9.4-12.4) fL Immature Gran % (Auto) 0.6 % Neut % (Auto) 72.4 % Lymph % (Auto) 16.8 % [place] % (Auto) 7.5 % Eos % (Auto) 1.7 % Baso % (Auto) 1.0 % Neut # (Auto) 3.74 (1.40-6.50) K/uL Lymph # (Auto) 0.87 L (1.20-3.40) K/uL [place] # (Auto) 0.39 (0.11-0.59) K/uL Eos # (Auto) 0.09 (0.00-0.50) K/uL Baso # (Auto) 0.05 (0.00-0.20) K/uL Immature Gran # (Auto) 0.03 (0.01-0.20) K/uL PT 28.4 H (9.0-12.0) Seconds INR 2.9 H (0.9-1.1) APTT 48 H (21-31) Seconds PTT Ratio 1.8 Sodium 139 (136-145) mmol/L Potassium 3.9 (3.5-5.1) mmol/L Chloride 107 (98-107) mmol/L Carbon Dioxide 22 (21-32) mmol/L Anion Gap 10 (3-11) BUN 21 (6-23) mg/dl Creatinine 1.04 (0.6-1.4) mg/dl Est Cr Clr Drug Dosing 63.6 ml/min eGFR 73.95 BUN/Creatinine Ratio 20.2 H (10-20) Glucose 137 H (70-99(Fasting)) mg/dl POC Glucose (70-99) mg/dl Calcium 8.9 (8.6-10.3) mg/dl Magnesium 1.4 L (1.7-2.4) mg/dl Total Bilirubin 0.8 (0.2-1.0) mg/dl AST 12 L (13-39) U/L ALT 8 (7-52) U/L Alkaline Phosphatase 51 (34-104) U/L Troponin I High Sens 54.6 H* D 39.0 H (0-20) pg/ml B-Natriuretic Peptide 1090 H (0-100) pg/ml Total Protein 6.8 (6.0-8.3) gm/dl Albumin 4.2 (3.4-5.0) gm/dl Globulin 2.6 (2.5-4.0) gm/dl Albumin/Globulin Ratio 1.6 (0.9-2) Lipase 32 (11-82) U/L SARS-CoV-2 (PCR) Cancelled Influenza A (RT-PCR) Influenza Type A (PCR) (Neg) Influenza B (RT-PCR) Influenza Type B (PCR) (Neg) RSV (RT-PCR) Medications Administered Current Inpatient Medications Acetaminophen (Acetaminophen 325 Mg Tab) 650 mg PO Q4H PRN PRN Reason: Pain or Fever Stop: 02/23/25 19:17 Albuterol (Albuterol Hfa 8 Gm Inhaler) 2 puffs INH Q6H PRN PRN Reason: sob/wheezing Stop: 02/23/25 19:17 Atorvastatin Calcium (Atorvastatin 40 Mg Tab) 40 mg PO DAILY SAIRA Stop: 02/24/25 08:59 Citalopram Hydrobromide (Citalopram 40 Mg Tab) 40 mg PO QAM SAIRA Stop: 02/24/25 08:59 Cyanocobalamin (Cyanocobalamin (B-12) 500 Mcg Tablet) 1,000 mcg PO DAILY PENDING SALE TO [facility] Stop: 02/24/25 08:59 Dextrose (Dextrose 50% 50 Ml Syringe) 25 - 50 ml IV UD PRN; Protocol PRN Reason: Hypoglycemia Protocol Stop: 02/23/25 18:39 Docusate Sodium (Docusate Sodium 100 Mg Cap) 100 mg PO BID PRN PRN Reason: Constipation Stop: 02/23/25 19:17 Fenofibrate (Fenofibrate Nanocrystallized 145 Mg Tablet) 145 mg PO QAM PENDING SALE TO [facility] Stop: 02/24/25 08:59 Fluticasone/Vilanterol (Fluticasone/Vilanterol 100/25mcg 14 Puffs/Inhaler) 1 puffs INH DAILY PENDING SALE TO [facility]; Protocol Stop: 02/24/25 08:59 Glucagon (Glucagon For Inj 1 Mg Vial) 1 mg SQ UD PRN; Protocol PRN Reason: Hypoglycemia Protocol Stop: 02/23/25 18:39 Glucose (Glucose 40% Gel 15 Gm Tube) 15 - 30 gm PO UD PRN; Protocol PRN Reason: Hypoglycemia Protocol Stop: 02/23/25 18:39 Glucose (Glucose 10 Tab/Tube) 4 - 8 tab PO UD PRN; Protocol PRN Reason: Hypoglycemia Protocol Stop: 02/23/25 18:39 Guaifenesin (Guaifenesin 600 Mg Tabcr) 600 mg PO Q12 PRN PRN Reason: congestion Stop: 02/23/25 19:17 Insulin Aspart (Insulin Aspart Per Unit Charge) 0 units SC ACHS PENDING SALE TO [facility] Stop: 02/23/25 20:59 Last Admin: 01/25/25 07:46 Dose: Not Given Levothyroxine Sodium (Levothyroxine Sodium 25 Mcg Tablet) 25 mcg PO DAILYBB PENDING SALE TO [facility] Stop: 02/24/25 06:29 Last Admin: 01/25/25 06:21 Dose: 25 mcg Magnesium Oxide (Magnesium Oxide 400 Mg Tab) 400 mg PO DAILY SAIRA Stop: 02/24/25 08:59 Metoprolol Succinate (Metoprolol Succ 25mg Ext Rel Tab) 25 mg PO DAILY SAIRA Stop: 02/24/25 08:59 Miscellaneous (Carbohydrates For Hypoglycemia ) 15 - 30 gm PO UD PRN PRN Reason: Hypoglycemia Protocol Stop: 02/23/25 18:39 Nitroglycerin (Nitroglycerin Sl 0.4 Mg/Tab Tab) 0.4 mg SL Q5M PRN PRN Reason: Chest Pain Stop: 02/23/25 18:00 Last Admin: 01/24/25 18:12 Dose: 0.4 mg Ondansetron HCl (Ondansetron Inj 2 Mg/Ml 2 Ml Vial) 4 mg IV Q6H PRN PRN Reason: Nausea Stop: 02/23/25 19:17 Pantoprazole Sodium (Pantoprazole 40 Mg Tab) 40 mg PO QAM SAIRA Stop: 02/24/25 08:59 Polyethylene Glycol (Polyethylene (Miralax) 17 Gm Pack) 17 gm PO DAILY PRN PRN Reason: Constipation Stop: 02/23/25 19:17 Trazodone HCl (Trazodone Hcl 50 Mg Tab) 50 mg PO HS PRN PRN Reason: Sleep Stop: 02/23/25 19:17 (3) CAD (coronary artery disease) Associated angina: without angina Coronary Disease-Associated Artery/Lesion type: [place] artery [place] vs. transplanted heart: [place] heart Qualified Code(s): I25.10 - Atherosclerotic heart disease of [place] coronary artery without angina pectoris
[2025-01-25] MEDS: FLUTICASONE/VILANTEROL 100/25MCG 14 PUFFS/INHALER INH SCH (09:30)
[2025-01-25] MEDS: CITALOPRAM 40 MG TAB PO SCH (09:30)
[2025-01-25] MEDS: guaiFENesin 600 MG TABCR PO PRN (09:31)
[2025-01-25] MEDS: FENOFIBRATE NANOCRYSTALLIZED 145 MG TABLET PO SCH (09:31)
[2025-01-25] MEDS: MAGNESIUM OXIDE 400 MG TAB PO SCH (09:31)
[2025-01-25] MEDS: METOPROLOL SUCC 25MG EXT REL TAB PO SCH ×2 (09:32→19:54)
[2025-01-25] MEDS: CYANOCOBALAMIN (B-12) 500 MCG TABLET PO SCH (09:32)
[2025-01-25] MEDS: ATORVASTATIN 40 MG TAB PO SCH (09:32)
[2025-01-25] MEDS: PANTOprazole 40 MG TAB PO SCH (09:32)
[2025-01-25] MEDS: POTASSIUM CHLORIDE CRTAB 20 MEQ TABCR PO STA ×2 (09:37→19:54)
[2025-01-25] MEDS: FUROSEMIDE 40 MG/4 ML VIAL IV ONE (11:25)
--- NOTE | 2025-01-25 13:35 | Cardiology Consultation ---
Date of Consultation January 25, 2025 Assessment & Plan (1) Acute on chronic systolic heart failure: (2) CAD (coronary artery disease): (3) MARC (dyspnea on exertion): Plan 79-year-old male with complex past history including ischemic cardiomyopathy remote coronary bypass grafting and coronary inventions recently hospitalized for acute hypoxic respiratory failure RSV infection. Presents now with worsening dyspnea and fatigue signs and symptoms of likely acute on chronic syst olic heart failure Plan: Increase furosemide to 40 mg twice per day IV. Add spironolactone 12.5 mg p.o. daily. Hold enalapril with ultimate goals to transition to Entresto after ARELIS inhibitor washout. Consider topical nitrates though blood pressure does not appear to all allow at this time Follow closely for underlying pulmonary disease as well, recently on prednisone CHF instructions Continue chronic anticoagulation with warfarin Add aspirin 81 mg/day Repeat echocardiogram given acute decompensation History of Present Illness Reason for Consultation: Acute on chronic decompensated systolic heart failure Requesting Physician: [facility] hospitalist Attending Physician: Jesse Silver MD History of Present Illness Patient is a 79-year-old male with ongoing cardiac concerns which include 1. Longstanding ischemic heart disease status post coronary bypass grafting times 12/06/1994 LOPE[facility] to the LAD saphenous vein graft to the right coronary artery Coronary interventions 2004 and December 2022 drug-eluting stents to circumflex 2. Ischemic cardiomyopathy with apical wall motion abnormality, reduced ejection fraction 3. 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 Hypertension 5. Acute bronchitis/RSV infection 12/29/2024 with hospitalization for hypoxic respiratory failure Patient referred now after presenting for admission with symptoms of persistent dyspnea and fatigue since recent hospitalization. Symptoms have worsened in the last weeks time with marked orthopnea and chronic chest pressure. No tachypalpitations no syncope. No fevers or chills currently. Still with low- grade cough but improved since recent hospitalization. No bleeding issues. Remains chronically anticoagulated with warfarin Currently not using any diuretics. No overt weight gain or worsening edema. Is aware of increase in abdominal girth Enalapril and metoprolol succinate recently reduced due to relative hypotension Allergies Allergy/AdvReac Type Severity Reaction Status Date / Time niacin Allergy Unknown ITCHY Verified 10/08/23 08:55 SPLOTCHY RASH Home Medications Medication Instructions Recorded Confirmed Type atorvastatin 40 mg tablet (Lipitor) 40 mg PO UD 12/18/20 01/24/25 History citalopram 40 mg tablet (Celexa) 40 mg PO QAM 12/18/20 01/24/25 History enalapril maleate 2.5 mg tablet 2.5 mg PO UD 12/18/20 01/24/25 History (Vasotec) levothyroxine 25 mcg capsule 25 mcg PO QAM 12/18/20 01/24/25 History cyanocobalamin (vitamin B-12) 1,000 mcg PO DAILY 09/23/21 01/24/25 History 1,000 mcg tablet fenofibrate micronized 134 mg 134 mg PO QAM 09/23/21 01/24/25 History capsule sildenafil 100 mg tablet (Viagra) 100 mg PO UD PRN Erectile 09/23/21 01/24/25 History Dysfunction pantoprazole 40 mg tablet,delayed 40 mg PO QAM #30 tabs 09/24/21 01/24/25 Rx release acetaminophen 325 mg tablet 650 mg (2 x 325 mg) PO Q6H PRN 01/12/22 01/24/25 Rx fever or pain #60 tabs psyllium husk 0.4 gram capsule 0.4 g PO DAILY #30 caps 01/12/22 01/24/25 Rx (Fiber (psyllium husk)) docusate sodium 100 mg capsule 100 mg PO BID PRN Constipation 12/31/22 01/24/25 History trazodone 50 mg tablet 50 mg PO HS PRN Sleep 12/31/22 01/24/25 History albuterol sulfate 90 mcg/actuation 2 puff inhalation Q6H PRN 12/28/24 01/24/25 History aerosol inhaler sob/wheezing metoprolol succinate 50 mg 25 mg PO DAILY 12/28/24 01/24/25 History tablet,extended release 24 hr ondansetron HCl 4 mg tablet 4 mg PO Q8H PRN Nausea And Vomiting 12/28/24 01/24/25 History prednisone 10 mg tablet 10 mg PO UD 12/28/24 01/24/25 History warfarin 3 mg tablet 3 - 6 mg PO Q OTHER DAY 12/28/24 01/24/25 History guaifenesin 600 mg tablet, 600 mg PO Q12 #14 tabs 01/01/25 01/24/25 Rx extended release 12 hr (Mucinex) magnesium oxide 400 mg (241.3 mg 400 mg PO DAILY #5 tabs 01/01/25 01/24/25 Rx magnesium) tablet budesonide-formoterol HFA 160 2 puff inhalation UD 01/24/25 01/24/25 History mcg-4.5 mcg/actuation aerosol inhaler (Symbicort) semaglutide 0.25 mg or 0.5 mg (2 0.5 mg subcut WK 01/24/25 01/24/25 History mg/3 mL) subcutaneous pen injector (Ozempic) Patient History Medical History COPD (chronic obstructive pulmonary disease) Hyperlipidemia Cirrhosis of liver currently stable, f/u specialist at [facility] Hx of myocardial infarction 2004, taken to [facility] for double bypass; f/u [facility] cardio GERD (gastroesophageal reflux disease) Hypothyroidism Hx of long-term (current) use of anticoagulants eliquis and clopidogrel Cervical disc disorder at C5-C6 level with radiculopathy Lumbar back pain with radiculopathy affecting left lower extremity "off and on" Foraminal stenosis of lumbar region L5-S1 DDD (degenerative disc disease), lumbar Rupture of hip abductor tendon no sx Surgical History History of esophagogastroduodenoscopy (EGD) Hx of colonoscopy Hx of tonsillectomy Hx of cardiac cath 2004, [facility], x1 stent 04/2023, having normal checkup w/echo and saw blood clot in the left ventricle, [facility], x1 stent; f/u [facility] cardio S/P hernia surgery abdominal hernia operations x3 H/O heart bypass surgery 1994, double bypass, [facility]; f/u [facility] H/O shoulder replacement left H/O laminectomy ~age 67 Family History Other Diabetes Heart disease Social History Smoking Status: Former smoker Tobacco Type: Cigarettes Cigarettes Per Day: 2 packs; quit 20 yrs ago; Second Hand Exposure: No; Do You Dip or Chew Tobacco: No; Hx Alcohol Use: Yes Alcohol type: beer Hx Substance Use: No Preferred Language: Malay Communication Ability: Effective Store Coordinator Required: No Beliefs That Will Affect Care: None marital status: Current Living Situation: Spouse current occupational status: retired How many Children do You have: 2 Other Information That Helps Us Care for You: No Feels Safe at Home: Yes Safety Concerns: Feels Safe At This Time Assistive Devices: Hearing Aid - Bilateral Physical Exam Constitutional: + ill appearing Eyes: PERRL, conjunctivae normal, anicteric sclerae ENMT: external ear and nose normal, oropharynx normal Neck: trachea midline, no thyromegaly Respiratory: Auscultation: + diminished lung sounds and + crackles; no wheezes Cardiovascular: Rate/Rhythm: regular rate and regular rhythm Vessels: + JVD Extremities: no pedal edema Gastrointestinal (Abdomen): normal bowel sounds, soft, nontender, no hepatosplenomegaly Inspection/Auscultation: + abdomen distended Results & Data Vital Signs (Past 12 Hours) Vital Signs Temp Pulse Resp BP Pulse Ox O2 Del Method O2 Flow Rate 01/25/25 11:55 36.6 C 84 18 143/83 H 96 Nasal Cannula 2 01/25/25 08:03 36.8 C 88 22 121/74 95 Nasal Cannula 2 01/25/25 02:36 36.5 C 65 18 95/50 L 92 Nasal Cannula 3 Laboratory Results Laboratory Results - last 24 hr 01/24/25 01/24/25 01/24/25 15:05 17:21 17:36 WBC 5.17 RBC 3.88 L Hgb 11.6 L Hct 34.6 L MCV 89.2 MCH 29.9 MCHC 33.5 RDW Std Deviation 45.7 RDW Coeff of [place] 14.2 Plt Count 157 MPV 12.1 Immature Gran % (Auto) 0.6 Neut % (Auto) 72.4 Lymph % (Auto) 16.8 [place] % (Auto) 7.5 Eos % (Auto) 1.7 Baso % (Auto) 1.0 Neut # (Auto) 3.74 Lymph # (Auto) 0.87 L [place] # (Auto) 0.39 Eos # (Auto) 0.09 Baso # (Auto) 0.05 Immature Gran # (Auto) 0.03 PT 28.4 H INR 2.9 H APTT 48 H PTT Ratio 1.8 Sodium 139 Potassium 3.9 Chloride 107 Carbon Dioxide 22 Anion Gap 10 BUN 21 Creatinine 1.04 Est Cr Clr Drug Dosing 63.6 eGFR 73.95 BUN/Creatinine Ratio 20.2 H Glucose 137 H POC Glucose Calcium 8.9 Magnesium 1.4 L Total Bilirubin 0.8 AST 12 L ALT 8 Alkaline Phosphatase 51 Troponin I High Sens 39.0 H 54.6 H* D B-Natriuretic Peptide 1090 H Total Protein 6.8 Albumin 4.2 Globulin 2.6 Albumin/Globulin Ratio 1.6 Lipase 32 SARS-CoV-2 (PCR) Cancelled Influenza A (RT-PCR) Influenza Type A (PCR) Influenza B (RT-PCR) Influenza Type B (PCR) RSV (RT-PCR) 01/24/25 01/24/25 01/24/25 17:36 17:36 20:26 WBC RBC Hgb Hct MCV MCH MCHC RDW Std Deviation RDW Coeff of [place] Plt Count MPV Immature Gran % (Auto) Neut % (Auto) Lymph % (Auto) [place] % (Auto) Eos % (Auto) Baso % (Auto) Neut # (Auto) Lymph # (Auto) [place] # (Auto) Eos # (Auto) Baso # (Auto) Immature Gran # (Auto) PT INR APTT PTT Ratio Sodium Potassium Chloride Carbon Dioxide Anion Gap BUN Creatinine Est Cr Clr Drug Dosing eGFR BUN/Creatinine Ratio Glucose POC Glucose 220 H Calcium Magnesium Total Bilirubin AST ALT Alkaline Phosphatase Troponin I High Sens B-Natriuretic Peptide Total Protein Albumin Globulin Albumin/Globulin Ratio Lipase SARS-CoV-2 (PCR) NEGATIVE Influenza A (RT-PCR) Cancelled Influenza Type A (PCR) Negative Influenza B (RT-PCR) Cancelled Influenza Type B (PCR) Negative RSV (RT-PCR) Cancelled Negative 01/24/25 01/25/25 01/25/25 20:52 02:47 07:34 WBC 4.59 L RBC 3.67 L Hgb 11.0 L Hct 33.0 L MCV 89.9 MCH 30.0 MCHC 33.3 RDW Std Deviation 46.4 H RDW Coeff of [place] 14.3 Plt Count 151 MPV 11.8 Immature Gran % (Auto) Neut % (Auto) Lymph % (Auto) [place] % (Auto) Eos % (Auto) Baso % (Auto) Neut # (Auto) Lymph # (Auto) [place] # (Auto) Eos # (Auto) Baso # (Auto) Immature Gran # (Auto) PT 23.7 H INR 2.4 H APTT PTT Ratio Sodium 138 Potassium 3.7 Chloride 105 Carbon Dioxide 24 Anion Gap 9 BUN 22 Creatinine 1.11 Est Cr Clr Drug Dosing 58.9 eGFR 68.39 BUN/Creatinine Ratio 19.8 Glucose 132 H POC Glucose 142 H Calcium 8.6 Magnesium 1.8 Total Bilirubin 1.0 AST 12 L ALT 7 Alkaline Phosphatase 47 Troponin I High Sens 50.6 H* 46.7 H B-Natriuretic Peptide Total Protein 6.4 Albumin 4.0 Globulin 2.4 L Albumin/Globulin Ratio 1.7 Lipase SARS-CoV-2 (PCR) Influenza A (RT-PCR) Influenza Type A (PCR) Influenza B (RT-PCR) Influenza Type B (PCR) RSV (RT-PCR) 01/25/25 11:09 WBC RBC Hgb Hct MCV MCH MCHC RDW Std Deviation RDW Coeff of [place] Plt Count MPV Immature Gran % (Auto) Neut % (Auto) Lymph % (Auto) [place] % (Auto) Eos % (Auto) Baso % (Auto) Neut # (Auto) Lymph # (Auto) [place] # (Auto) Eos # (Auto) Baso # (Auto) Immature Gran # (Auto) PT INR APTT PTT Ratio Sodium Potassium Chloride Carbon Dioxide Anion Gap BUN Creatinine Est Cr Clr Drug Dosing eGFR BUN/Creatinine Ratio Glucose POC Glucose 131 H Calcium Magnesium Total Bilirubin AST ALT Alkaline Phosphatase Troponin I High Sens B-Natriuretic Peptide Total Protein Albumin Globulin Albumin/Globulin Ratio Lipase SARS-CoV-2 (PCR) Influenza A (RT-PCR) Influenza Type A (PCR) Influenza B (RT-PCR) Influenza Type B (PCR) RSV (RT-PCR) (2) CAD (coronary artery disease) Coronary Disease-Associated Artery/Lesion type: [place] artery [place] vs. transplanted heart: [place] heart Associated angina: without angina Qualified Code(s): I25.10 - Atherosclerotic heart disease of [place] coronary artery without angina pectoris
[2025-01-25] MEDS: WARFARIN SOD 3 MG TAB PO SCH (16:49)
[2025-01-25] MEDS: FUROSEMIDE 40 MG/4 ML VIAL IV SCH (16:56)
[2025-01-26 06:21] LABS: Hematocrit (blood only) 35.5 % (42.0-52.0); Hemoglobin 11.8 g/dl (14.0-18.0); Mean Corpuscular Hemoglobin 29.4 pg (25.0-34.0); Mean Corpuscular Hgb Conc 33.2 g/dL (32.0-36.0); Mean Corpuscular Volume 88.5 fL (80.0-100.0); Platelet Count 193 K/uL (130-400); RDW Coefficient of Variation 14.3 % (11.5-14.5); RDW Standard Deviation 45.8 fL (36.4-46.3); Red Blood Count 4.01 M/uL (4.70-6.10); White Blood Count 4.99 K/ul (4.8-10.8)
[2025-01-26 06:43] LABS: INR 1.8 (0.9-1.1); Prothrombin Time 18.2 Seconds (9.0-12.0)
[2025-01-26 06:50] LABS: BUN Creatinine Ratio 23.4 (10-20); Calcium 9.1 mg/dl (8.6-10.3); Magnesium 1.8 mg/dl (1.7-2.4); Phosphorus 3.7 mg/dl (2.5-4.9); Potassium 3.9 mmol/L (3.5-5.1)
--- NOTE | 2025-01-26 08:30 | Hospitalist Progress Note ---
Date of Service January 26, 2025 Assessment & Plan (1) Heart failure, systolic, with acute decompensation: (2) Hypomagnesemia: (3) CAD (coronary artery disease): (4) HTN (hypertension): (5) Hyperlipidemia: (6) COPD (chronic obstructive pulmonary disease): (7) History of tobacco abuse: (8) Cirrhosis of liver: (9) Hypothyroidism: (10) Apical mural thrombus: Plan This is a 79-year-old male with PMH of CAD, DM II, history of apical mural thrombus on coumadin, HTN, history of cirrhosis of liver, hypothyroidism, hyperlipidemia, polyneuropathy, history of CVA, B12 deficiency, acquired cyst of kidney, BPH, cervical spondylosis, depression, primary insomnia who presents for progressively worsening shortness of breath x 5 days and was found to have decompensated systolic heart failure. Acute decompensated systolic heart failure Recently admitted for RSV bronchiolitis, had echo during admission that showed reduced EF of revealed newly reduced EF of 25-30% (from 40%) with moderate- severe LV hypokinesis [place] better on discharge but has progressive dyspnea on exertion x 5 days Given 20mg IV Lasix in ED and placed on bipap due to work of breathing, no documented hypoxia CXR with stable exam; chronic cardiomegaly and pulmonary vascular congestion in a patient has had prior coronary artery bypass surgery and a left shoulder joint replacement BNP 1090, troponin 39 ECG with sinus rhythm with frequent PVCs, LAD, nonspecific intraventricular conduction block similar to previous Strict I&Os, daily weights Continue reduced Toprol dose of 25mg daily Cardiology consulted Hypomagnesemia Initial Mag 1.4 - replace and monitor Elevated troponin, CAD No acute ECG changes, some chest discomfort earlier today with vomiting x 1 at 0900, pain is still a 3/4, improved with ntg Troponin elevated at 39, repeat 54. Likely ischemic demand 2/2 above but will monitor Most recent cath in December 2022 in setting of unstable angina, s/p PCI to OM 3 with single MAYLIN Continue Toprol at 25 mg, atorvastatin Repeat ECG in AM admitting team discussed with Dr. Read - chest pain likely 2/2 CHF but suggests addition of 324mg aspirin now 4/10 Pt on 2L of suppl. O2 via MO Cardiology consulted - cont. diuresis 40 lasix bid, start spironolactone, asa. Plan to transition to Entresto from aceinh. Plan to repeat echo 4/11 Echo obtained EF 15-20%, Compared to study last month, LV is now dilated Per cardiology - Continue IV diuretics with reduced dose of furosemide 20 mg twice daily Begin Entresto 1/2 tablet twice daily now greater than 36 hours post enalapril Continue increased dose of metoprolol succinate, spironolactone Discussed prophylactic defibrillator once hemodynamically improved DM II A1c 5.5 in December 2024 Hold home agents SSI while in-patient BSG AC HS COPD Appears compensated Completed abx and pred taper from last admission Continue Spiriva Awaiting PFT results from 01/23 H/o apical mural thrombus Noted during December 2022 monitor INR while admitted History of liver cirrhosis Follows with [facility]. No abnormalities noted on LFTs Continue diuresis as above, monitor Hypothyroidism Continue levothyroxine DVT Ppx: coumadin Code status: FULL PCP: Dr. Han Dispo: PCU Admission and Anticipated Discharge Date Admission Date: January 24, 2025 Subjective Pt seen in follow up of dyspnea, secondary to acute CHF recently hospitalized w/ RSV, hypoxia, seen by pulm. at that time Currently lying in bed in NAD, on NC 2L, reports feeling little better but still with shortness of breath no fever, chills, no abd. pain, n/v Cardiology consulted and discussed with - cont. diuresis, transition to entresto Review of Systems Review of Systems: All systems reviewed & are unremarkable except as noted in Subjective Physical Exam Physical Exam: GENERAL: Alert and oriented x3. NAD, on 2L NC HEENT: NC/AT. Pupils equal, round and reactive to light. Oral mucosa moist. NECK: No JVD, no neck masses. HEART: S1 and S2 heard. Regular rate and rhythm. No murmur, no gallop. RESPIRATORY: No accessory muscle use. No wheezing, bb crackles. ABDOMEN: Soft, bowel sounds present, nontender, + distention. NEURO: awake, alert, answers appropriately, No facial asymmetry. Speech is clear. Moves extremities. EXTREMITIES: trace ble edema, no erythema seen. Results & Data Results & Data Vital Signs (Past 12 Hours) Vital Signs Temp Pulse Pulse Resp BP Pulse Ox O2 Del Method 01/26/25 02:56 36.7 C 84 19 115/78 95 Nasal Cannula 01/25/25 22:46 36.6 C 97 H 18 119/76 94 Nasal Cannula 01/25/25 21:39 102 H O2 Flow Rate 01/26/25 02:56 2 01/25/25 22:46 2 01/25/25 21:39 Laboratory Results 01/26/25 01/26/25 01/25/25 Range/Units 07:27 05:36 20:14 WBC 4.99 (4.8-10.8) K/ul RBC 4.01 L (4.70-6.10) M/uL Hgb 11.8 L (14.0-18.0) g/dl Hct 35.5 L (42.0-52.0) % MCV 88.5 (80.0-100.0) fL MCH 29.4 (25.0-34.0) pg MCHC 33.2 (32.0-36.0) g/dL RDW Std Deviation 45.8 (36.4-46.3) fL RDW Coeff of [place]era 14.3 (11.5-14.5) % Plt Count 193 (130-400) K/uL MPV 12.0 (9.4-12.4) fL PT 18.2 H (9.0-12.0) Seconds INR 1.8 H (0.9-1.1) Sodium 139 (136-145) mmol/L Potassium 3.9 (3.5-5.1) mmol/L Chloride 103 (98-107) mmol/L Carbon Dioxide 25 (21-32) mmol/L Anion Gap 11 (3-11) BUN 33 H (6-23) mg/dl Creatinine 1.41 H D (0.6-1.4) mg/dl Est Cr Clr Drug Dosing 46.0 ml/min eGFR 51.33 BUN/Creatinine Ratio 23.4 H (10-20) Glucose 145 H (70-99(Fasting)) mg/dl POC Glucose 145 H 138 H (70-99) mg/dl Calcium 9.1 (8.6-10.3) mg/dl Phosphorus 3.7 (2.5-4.9) mg/dl Magnesium 1.8 (1.7-2.4) mg/dl 01/25/25 01/25/25 Range/Units 16:26 11:09 WBC (4.8-10.8) K/ul RBC (4.70-6.10) M/uL Hgb (14.0-18.0) g/dl Hct (42.0-52.0) % MCV (80.0-100.0) fL MCH (25.0-34.0) pg MCHC (32.0-36.0) g/dL RDW Std Deviation (36.4-46.3) fL RDW Coeff of [place] (11.5-14.5) % Plt Count (130-400) K/uL MPV (9.4-12.4) fL PT (9.0-12.0) Seconds INR (0.9-1.1) Sodium (136-145) mmol/L Potassium (3.5-5.1) mmol/L Chloride (98-107) mmol/L Carbon Dioxide (21-32) mmol/L Anion Gap (3-11) BUN (6-23) mg/dl Creatinine (0.6-1.4) mg/dl Est Cr Clr Drug Dosing ml/min eGFR BUN/Creatinine Ratio (10-20) Glucose (70-99(Fasting)) mg/dl POC Glucose 128 H 131 H (70-99) mg/dl Calcium (8.6-10.3) mg/dl Phosphorus (2.5-4.9) mg/dl Magnesium (1.7-2.4) mg/dl Medications Administered Current Inpatient Medications Acetaminophen (Acetaminophen 325 Mg Tab) 650 mg PO Q4H PRN PRN Reason: Pain or Fever Stop: 02/23/25 19:17 Albuterol (Albuterol Hfa 8 Gm Inhaler) 2 puffs INH Q6H PRN PRN Reason: sob/wheezing Stop: 02/23/25 19:17 Aspirin (Aspirin 81 Mg Ectab) 81 mg PO QAM [facility] Stop: 02/25/25 08:59 Atorvastatin Calcium (Atorvastatin 40 Mg Tab) 40 mg PO DAILY [facility] Stop: 02/24/25 08:59 Last Admin: 01/25/25 09:32 Dose: 40 mg Citalopram Hydrobromide (Citalopram 40 Mg Tab) 40 mg PO QAM [facility] Stop: 02/24/25 08:59 Last Admin: 01/25/25 09:30 Dose: 40 mg Cyanocobalamin (Cyanocobalamin (B-12) 500 Mcg Tablet) 1,000 mcg PO DAILY [facility] Stop: 02/24/25 08:59 Last Admin: 01/25/25 09:32 Dose: 1,000 mcg Dextrose (Dextrose 50% 50 Ml Syringe) 25 - 50 ml IV UD PRN; Protocol PRN Reason: Hypoglycemia Protocol Stop: 02/23/25 18:39 Docusate Sodium (Docusate Sodium 100 Mg Cap) 100 mg PO BID PRN PRN Reason: Constipation Stop: 02/23/25 19:17 Fenofibrate (Fenofibrate Nanocrystallized 145 Mg Tablet) 145 mg PO QAM [facility] Stop: 02/24/25 08:59 Last Admin: 01/25/25 09:31 Dose: 145 mg Fluticasone/Vilanterol (Fluticasone/Vilanterol 100/25mcg 14 Puffs/Inhaler) 1 puffs INH DAILY [facility]; Protocol Stop: 02/24/25 08:59 Last Admin: 01/25/25 09:30 Dose: 1 puffs Furosemide (Furosemide 40 Mg/4 Ml Vial) 40 mg IV [id number] [facility] Stop: 02/24/25 16:59 Last Admin: 01/25/25 16:56 Dose: 40 mg Glucagon (Glucagon For Inj 1 Mg Vial) 1 mg SQ UD PRN; Protocol PRN Reason: Hypoglycemia Protocol Stop: 02/23/25 18:39 Glucose (Glucose 40% Gel 15 Gm Tube) 15 - 30 gm PO UD PRN; Protocol PRN Reason: Hypoglycemia Protocol Stop: 02/23/25 18:39 Glucose (Glucose 10 Tab/Tube) 4 - 8 tab PO UD PRN; Protocol PRN Reason: Hypoglycemia Protocol Stop: 02/23/25 18:39 Guaifenesin (Guaifenesin 600 Mg Tabcr) 600 mg PO Q12 PRN PRN Reason: congestion Stop: 02/23/25 19:17 Last Admin: 01/25/25 09:31 Dose: 600 mg Insulin Aspart (Insulin Aspart Per Unit Charge) 0 units SC ACHS [facility] Stop: 02/23/25 20:59 Last Admin: 01/25/25 20:17 Dose: Not Given Levothyroxine Sodium (Levothyroxine Sodium 25 Mcg Tablet) 25 mcg PO DAILYBB [facility] Stop: 02/24/25 06:29 Last Admin: 01/26/25 05:55 Dose: 25 mcg Magnesium Oxide (Magnesium Oxide 400 Mg Tab) 400 mg PO DAILY [facility] Stop: 02/24/25 08:59 Last Admin: 01/25/25 09:31 Dose: 400 mg Metoprolol Succinate (Metoprolol Succ 25mg Ext Rel Tab) 25 mg PO BID [facility] Stop: 02/24/25 20:59 Last Admin: 01/25/25 19:54 Dose: 25 mg Miscellaneous (Carbohydrates For Hypoglycemia ) 15 - 30 gm PO UD PRN PRN Reason: Hypoglycemia Protocol Stop: 02/23/25 18:39 Nitroglycerin (Nitroglycerin Sl 0.4 Mg/Tab Tab) 0.4 mg SL Q5M PRN PRN Reason: Chest Pain Stop: 02/23/25 18:00 Last Admin: 01/24/25 18:12 Dose: 0.4 mg Ondansetron HCl (Ondansetron Inj 2 Mg/Ml 2 Ml Vial) 4 mg IV Q6H PRN PRN Reason: Nausea Stop: 02/23/25 19:17 Pantoprazole Sodium (Pantoprazole 40 Mg Tab) 40 mg PO QAM [facility] Stop: 02/24/25 08:59 Last Admin: 01/25/25 09:32 Dose: 40 mg Polyethylene Glycol (Polyethylene (Miralax) 17 Gm Pack) 17 gm PO DAILY PRN PRN Reason: Constipation Stop: 02/23/25 19:17 Spironolactone (Spironolactone 12.5 Mg Tab) 12.5 mg PO DAILY [facility] Stop: 02/25/25 08:59 Trazodone HCl (Trazodone Hcl 50 Mg Tab) 50 mg PO HS PRN PRN Reason: Sleep Stop: 02/23/25 19:17 Warfarin Sodium (Warfarin Sod 3 Mg Tab) 3 mg PO Q2D@1600 [facility] Stop: 02/24/25 15:59 Last Admin: 01/25/25 16:49 Dose: 3 mg Warfarin Sodium (Warfarin Sod 3 Mg Tab) 6 mg PO Q2D@1600 [facility] Stop: 02/25/25 15:59 (3) CAD (coronary artery disease) Associated angina: without angina Coronary Disease-Associated Artery/Lesion type: [place] artery [place] vs. transplanted heart: [place] heart Qualified Code(s): I25.10 - Atherosclerotic heart disease of [place] coronary artery without angina pectoris
[2025-01-26] MEDS: SPIRONOLACTONE 12.5 MG TAB PO SCH (10:15)
[2025-01-26] MEDS: ASPIRIN 81 MG ECTAB PO SCH (11:04)
--- NOTE | 2025-01-26 11:56 | Cardiology Progress Note ---
Date of Service January 26, 2025 Assessment & Plan (1) Acute on chronic systolic heart failure: (2) CAD (coronary artery disease): (3) MARC (dyspnea on exertion): Plan 79-year-old male with complex past history including ischemic cardiomyopathy remote coronary bypass grafting and coronary inventions recently hospitalized for acute hypoxic respiratory failure RSV infection. Presents now with worsening dyspnea and fatigue signs and symptoms of likely acute on chronic systolic heart failure Plan: Increase furosemide to 40 mg twice per day IV. Add spironolactone 12.5 mg p.o. daily. Hold enalapril with ultimate goals to transition to Entresto after ARELIS inhibitor washout. Consider topical nitrates though blood pressure does not appear to all allow at this time Follow closely for underlying pulmonary disease as well, recently on prednisone CHF instructions Continue chronic anticoagulation with warfarin Add aspirin 81 mg/day Repeat echocardiogram given acute decompensation 01/26/2025 1. Acute on chronic decompensated systolic heart failure Responding to IV diuretics 2. Ischemic cardiomyopathy with severely reduced left ventricular systolic function 3. Severe [place] vessel coronary disease status post coronary bypass grafting Plan: Continue IV diuretics with reduced dose of furosemide 20 mg twice daily Begin Entresto 1/2 tablet twice daily now greater than 36 hours post enalapril Continue increased dose of metoprolol succinate, spironolactone Discussed prophylactic defibrillator once hemodynamically improved Admission and Anticipated Discharge Date Admission Date: January 24, 2025 Subjective Patient was seen and examined, chart, medications, telemetry reviewed. More comfortable today still dyspneic but marked respiratory distress resolved. Has had good diuresis overnight. No arrhythmias. Currently no chest pain or discomfort Review of Systems Review of Systems: All systems reviewed & are unremarkable except as noted in Subjective Physical Exam Constitutional: no acute distress Eyes: PERRL, conjunctivae normal, anicteric sclerae ENMT: external ear and nose normal, oropharynx normal Neck: trachea midline, no thyromegaly Respiratory: Auscultation: + diminished lung sounds and + crackles; no wheezes Cardiovascular: Rate/Rhythm: regular rate and regular rhythm Vessels: + JVD Extremities: no pedal edema Gastrointestinal (Abdomen): normal bowel sounds, soft, nontender, no hepatosplenomegaly Inspection/Auscultation: + abdomen distended Neurologic: PERRL, EOMI, accommodation nl, no face palsy, no dysarthria Results & Data Vital Signs (Past 12 Hours) Vital Signs Temp Pulse Resp BP Pulse Ox O2 Del Method O2 Flow Rate 01/26/25 11:26 36.4 C L 99 H 18 120/79 97 Nasal Cannula 2 01/26/25 08:40 36.7 C 92 H 18 125/83 97 Nasal Cannula 2 01/26/25 02:56 36.7 C 84 19 115/78 95 Nasal Cannula 2 Laboratory Results Laboratory Results - last 24 hr 01/25/25 01/25/25 01/26/25 16:26 20:14 05:36 WBC 4.99 RBC 4.01 L Hgb 11.8 L Hct 35.5 L MCV 88.5 MCH 29.4 MCHC 33.2 RDW Std Deviation 45.8 RDW Coeff of Guera 14.3 Plt Count 193 MPV 12.0 PT 18.2 H INR 1.8 H Sodium 139 Potassium 3.9 Chloride 103 Carbon Dioxide 25 Anion Gap 11 BUN 33 H Creatinine 1.41 H D Est Cr Clr Drug Dosing 46.0 eGFR 51.33 BUN/Creatinine Ratio 23.4 H Glucose 145 H POC Glucose 128 H 138 H Calcium 9.1 Phosphorus 3.7 Magnesium 1.8 01/26/25 01/26/25 07:27 11:28 WBC RBC Hgb Hct MCV MCH MCHC RDW Std Deviation RDW Coeff of Guera Plt Count MPV PT INR Sodium Potassium Chloride Carbon Dioxide Anion Gap BUN Creatinine Est Cr Clr Drug Dosing eGFR BUN/Creatinine Ratio Glucose POC Glucose 145 H 107 H Calcium Phosphorus Magnesium Diagnostic Findings Echocardiogram 01/26/2025 Dilated ischemic cardiomyopathy EF 20% with mild mitral insufficiency. Mild to moderate elevation in right heart pressures. In comparison to prior study 1 month prior left ventricular size has increased and ejection fraction decreased slightly (2) CAD (coronary artery disease) Associated angina: without angina Coronary Disease-Associated Artery/Lesion type: [place] artery [place] vs. transplanted heart: [place] heart Qualified Code(s): I25.10 - Atherosclerotic heart disease of [place] coronary artery without angina pectoris
[2025-01-26] MEDS: VALSARTAN/SACUBITRIL 26/24MG TAB PO SCH (12:48)
--- NOTE | 2025-01-26 16:14 | Electrocardiogram Report ---
Test Reason : Blood Pressure : */* mmHG Vent. Rate : 96 BPM Atrial Rate : 96 BPM P-R Int : 162 ms QRS Dur : 142 ms QT Int : 412 ms P-R-T Axes : 51 -53 123 degrees QTcB Int : 520 ms Sinus rhythm with frequent , and consecutive Premature ventricular complexes Left axis deviation Left bundle branch block Abnormal ECG When compared with ECG of 24-Jan-2025 14:17, Previous ECG has undetermined rhythm, needs review Left bundle branch block is now Present Confirmed by Burak Kapoor ([id number]) on 01/26/2025 4:14:32 PM Referred By: REFERRED SELF Confirmed By: Burak Kapoor
[2025-01-26] MEDS: FUROSEMIDE 40 MG/4 ML VIAL IV SCH (16:22)
[2025-01-26] MEDS: WARFARIN SOD 3 MG TAB PO SCH (17:25)
[2025-01-26] MEDS: traZODone HCL 50 MG TAB PO PRN (21:22)
[2025-01-26] MEDS: ACETAMINOPHEN 325 MG TAB PO PRN (21:22)
[2025-01-27] MEDS: METOPROLOL TARTRATE 1 MG/ML VIAL IV STA (00:43)
[2025-01-27 08:24] LABS: Hematocrit (blood only) 35.9 % (42.0-52.0); Hemoglobin 11.9 g/dl (14.0-18.0); Mean Corpuscular Hemoglobin 29.5 pg (25.0-34.0); Mean Corpuscular Hgb Conc 33.1 g/dL (32.0-36.0); Mean Corpuscular Volume 89.1 fL (80.0-100.0); Platelet Count 200 K/uL (130-400); RDW Coefficient of Variation 14.2 % (11.5-14.5); RDW Standard Deviation 45.6 fL (36.4-46.3); Red Blood Count 4.03 M/uL (4.70-6.10); White Blood Count 4.34 K/ul (4.8-10.8)
[2025-01-27 08:37] LABS: BUN Creatinine Ratio 29.2 (10-20); Calcium 8.9 mg/dl (8.6-10.3); Creatinine Clr Calc Pharmacy 49.9 ml/min; Magnesium 1.8 mg/dl (1.7-2.4); Phosphorus 3.6 mg/dl (2.5-4.9); Potassium 3.8 mmol/L (3.5-5.1)
--- NOTE | 2025-01-27 09:14 | Cardiology Progress Note ---
Date of Service January 27, 2025 Assessment & Plan (1) Acute on chronic systolic heart failure: (2) CAD (coronary artery disease): (3) MARC (dyspnea on exertion): (4) Paroxysmal atrial fibrillation: Plan 79-year-old male with complex past history including ischemic cardiomyopathy remote coronary bypass grafting and coronary inventions recently hospitalized for acute hypoxic respiratory failure RSV infection. Presents now with worsening dyspnea and fatigue signs and symptoms of likely acute on chronic systolic heart failure Plan: Increase furosemide to 40 mg twice per day IV. Add spironolactone 12.5 mg p.o. daily. Hold enalapril with ultimate goals to transition to Entresto after ARELIS inhibitor washout. Consider topical nitrates though blood pressure does not appear to all allow at this time Follow closely for underlying pulmonary disease as well, recently on prednisone CHF instructions Continue chronic anticoagulation with warfarin Add aspirin 81 mg/day Repeat echocardiogram given acute decompensation 01/26/2025 1. Acute on chronic decompensated systolic heart failure Responding to IV diuretics 2. Ischemic cardiomyopathy with severely reduced left ventricular systolic function 3. Severe [place] vessel coronary disease status post coronary bypass grafting Plan: Continue IV diuretics with reduced dose of furosemide 20 mg twice daily Begin Entresto 1/2 tablet twice daily now greater than 36 hours post enalapril Continue increased dose of metoprolol succinate, spironolactone Discussed prophylactic defibrillator once hemodynamically improved 01/27/2025 1. Acute on chronic decompensated systolic heart failure 2. Ischemic cardiomyopathy with severely reduced ejection fraction 3. Severe [place] vessel coronary artery disease status post coronary bypass grafting, coronary intervention left circumflex last procedure 2022 4. Paroxysmal atrial fibrillation 5. Conduction system disease Recommendations/plan. Patient responding to IV diuretics and GDMT with less respiratory distress and appropriate diuresis. Renal function essentially stable. Continue current orders Supplement potassium today Transient atrial fibrillation last evening with poor tolerance. Plan initiate amiodarone 200 mg p.o. 3 times daily. Follow daily EKG Will require pacer defibrillator as management timing dependent on clinical course Admission and Anticipated Discharge Date Admission Date: January 24, 2025 Subjective Patient seen and examined, chart, medications, telemetry reviewed. Clinically appears improved less tachycardia, dyspnea. Continues to diurese. Blood pressures tolerating medication additions. Transient atrial fibrillation however overnight with spontaneous conversion to sinus rhythm. Patient symptomatic during event Review of Systems Review of Systems: All systems reviewed & are unremarkable except as noted in Subjective Physical Exam Constitutional: no acute distress Eyes: PERRL, conjunctivae normal, anicteric sclerae ENMT: external ear and nose normal, oropharynx normal Neck: trachea midline, no thyromegaly Respiratory: Auscultation: + diminished lung sounds and + crackles Cardiovascular: Rate/Rhythm: regular rate and regular rhythm Extremities: no pedal edema Gastrointestinal (Abdomen): normal bowel sounds, soft, nontender, no hepatosplenomegaly Inspection/Auscultation: + abdomen distended Musculoskeletal: no cyanosis or clubbing, extremities motor strength 5/5 Neurologic: PERRL, EOMI, accommodation nl, no face palsy, no dysarthria Results & Data Vital Signs (Past 12 Hours) Vital Signs Temp Pulse Pulse Resp BP BP Pulse Ox 01/27/25 07:20 36.4 C L 70 18 109/65 93 01/27/25 02:27 71 103/60 01/26/25 23:38 36.5 C 78 16 110/52 L 96 O2 Del Method O2 Flow Rate 01/27/25 07:20 Nasal Cannula 2.0 01/27/25 02:27 01/26/25 23:38 Room Air Laboratory Results Laboratory Results - last 24 hr 01/26/25 01/26/25 01/26/25 11:28 16:31 20:18 WBC RBC Hgb Hct MCV MCH MCHC RDW Std Deviation RDW Coeff of Guera Plt Count MPV Sodium Potassium Chloride Carbon Dioxide Anion Gap BUN Creatinine Est Cr Clr Drug Dosing eGFR BUN/Creatinine Ratio Glucose POC Glucose 107 H 165 H 97 Calcium Phosphorus Magnesium 01/27/25 01/27/25 07:22 08:05 WBC 4.34 L RBC 4.03 L Hgb 11.9 L Hct 35.9 L MCV 89.1 MCH 29.5 MCHC 33.1 RDW Std Deviation 45.6 RDW Coeff of Guera 14.2 Plt Count 200 MPV 12.0 Sodium 136 Potassium 3.8 Chloride 101 Carbon Dioxide 28 Anion Gap 7 BUN 38 H Creatinine 1.30 Est Cr Clr Drug Dosing 49.9 eGFR 56.58 BUN/Creatinine Ratio 29.2 H Glucose 190 H POC Glucose 124 H Calcium 8.9 Phosphorus 3.6 Magnesium 1.8 (2) CAD (coronary artery disease) Coronary Disease-Associated Artery/Lesion type: [place] artery [place] vs. transplanted heart: [place] heart Associated angina: without angina Qualified Code(s): I25.10 - Atherosclerotic heart disease of [place] coronary artery without angina pectoris
[2025-01-27] MEDS: AMIODARONE 200 MG TAB PO ONE (09:37)
[2025-01-27] MEDS: POTASSIUM CHLORIDE CRTAB 20 MEQ TABCR PO ONE (09:43)
--- NOTE | 2025-01-27 10:53 | Hospitalist Progress Note ---
Date of Service January 27, 2025 Assessment & Plan (1) Heart failure, systolic, with acute decompensation: (2) Hypomagnesemia: (3) CAD (coronary artery disease): (4) HTN (hypertension): (5) Hyperlipidemia: (6) COPD (chronic obstructive pulmonary disease): (7) History of tobacco abuse: (8) Cirrhosis of liver: (9) Hypothyroidism: (10) Apical mural thrombus: Plan This is a 79-year-old male with PMH of CAD, DM II, history of apical mural thrombus on coumadin, HTN, history of cirrhosis of liver, hypothyroidism, hyperlipidemia, polyneuropathy, history of CVA, B12 deficiency, acquired cyst of kidney, BPH, cervical spondylosis, depression, primary insomnia who presents for progressively worsening shortness of breath x 5 days and was found to have decompensated systolic heart failure. Acute decompensated systolic heart failure Recently admitted for RSV bronchiolitis, had echo during admission that showed reduced EF of revealed newly reduced EF of 25-30% (from 40%) with moderate- severe LV hypokinesis [place] better on discharge but has progressive dyspnea on exertion x 5 days Given 20mg IV Lasix in ED and placed on bipap due to work of breathing, no documented hypoxia CXR with stable exam; chronic cardiomegaly and pulmonary vascular congestion in a patient has had prior coronary artery bypass surgery and a left shoulder joint replacement BNP 1090, troponin 39 ECG with sinus rhythm with frequent PVCs, LAD, nonspecific intraventricular conduction block similar to previous Strict I&Os, daily weights Continue reduced Toprol dose of 25mg daily Cardiology consulted Hypomagnesemia Initial Mag 1.4 - replace and monitor Elevated troponin, CAD No acute ECG changes, some chest discomfort earlier today with vomiting x 1 at 0900, pain is still a 3/4, improved with ntg Troponin elevated at 39, repeat 54. Likely ischemic demand 2/2 above but will monitor Most recent cath in December 2022 in setting of unstable angina, s/p PCI to OM 3 with single MAYLIN Continue Toprol at 25 mg, atorvastatin Repeat ECG in AM admitting team discussed with Dr. Read - chest pain likely 2/2 CHF but suggests addition of 324mg aspirin now 4/10 Pt on 2L of suppl. O2 via ME Cardiology consulted - cont. diuresis 40 lasix bid, start spironolactone, asa. Plan to transition to Entresto from aceinh. Plan to repeat echo 4/11 Echo obtained EF 15-20%, Compared to study last month, LV is now dilated Per cardiology - Continue IV diuretics with reduced dose of furosemide 20 mg twice daily Begin Entresto 1/2 tablet twice daily now greater than 36 hours post enalapril Continue increased dose of metoprolol succinate, spironolactone Discussed prophylactic defibrillator once hemodynamically improved 01/27 Pt had Afib RVR episode yesterday , then converted to sinus rhythm. Per cardiology - Patient responding to IV diuretics and GDMT with less respiratory distress and appropriate diuresis. Renal function essentially stable. Continue current orders Transient atrial fibrillation last evening with poor tolerance. Plan initiate amiodarone 200 mg p.o. 3 times daily. Follow daily EKG Will require pacer defibrillator as management timing dependent on clinical course DM II A1c 5.5 in December 2024 Hold home agents SSI while in-patient BSG AC HS COPD Appears compensated Completed abx and pred taper from last admission Continue Spiriva Awaiting PFT results from 01/23 H/o apical mural thrombus Noted during December 2022 monitor INR while admitted History of liver cirrhosis Follows with [facility]. No abnormalities noted on LFTs Continue diuresis as above, monitor Hypothyroidism Continue levothyroxine DVT Ppx: coumadin Code status: FULL PCP: Dr. Han Dispo: PCU Admission and Anticipated Discharge Date Admission Date: January 24, 2025 Subjective Pt seen in follow up of dyspnea, secondary to acute CHF recently hospitalized w/ RSV, hypoxia, seen by pulm. at that time Currently lying in bed in NAD, on NC 2L, reports feeling better no fever, chills, no abd. pain, n/v Cardiology consulted - Afib rvr yesterday, then converted to sinus, cont. diuresis, will start amiodarone Review of Systems Review of Systems: All systems reviewed & are unremarkable except as noted in Subjective Physical Exam Physical Exam: GENERAL: Alert and oriented x3. NAD, on 2L NC HEENT: NC/AT. Pupils equal, round and reactive to light. Oral mucosa moist. NECK: No JVD, no neck masses. HEART: S1 and S2 heard. Regular rate and rhythm. No murmur, no gallop. RESPIRATORY: No accessory muscle use. No wheezing, bb crackles. ABDOMEN: Soft, bowel sounds present, nontender, + distention. NEURO: awake, alert, answers appropriately, No facial asymmetry. Speech is clear. Moves extremities. EXTREMITIES: trace ble edema, no erythema seen. Results & Data Results & Data Vital Signs (Past 12 Hours) Vital Signs Temp Pulse Pulse Resp BP BP Pulse Ox 01/27/25 07:20 36.4 C L 70 18 109/65 93 01/27/25 02:27 71 103/60 01/26/25 23:38 36.5 C 78 16 110/52 L 96 O2 Del Method O2 Flow Rate 01/27/25 07:20 Nasal Cannula 2.0 01/27/25 02:27 01/26/25 23:38 Room Air Laboratory Results 01/27/25 01/27/25 01/26/25 Range/Units 08:05 07:22 20:18 WBC 4.34 L (4.8-10.8) K/ul RBC 4.03 L (4.70-6.10) M/uL Hgb 11.9 L (14.0-18.0) g/dl Hct 35.9 L (42.0-52.0) % MCV 89.1 (80.0-100.0) fL MCH 29.5 (25.0-34.0) pg MCHC 33.1 (32.0-36.0) g/dL RDW Std Deviation 45.6 (36.4-46.3) fL RDW Coeff of Guera 14.2 (11.5-14.5) % Plt Count 200 (130-400) K/uL MPV 12.0 (9.4-12.4) fL Sodium 136 (136-145) mmol/L Potassium 3.8 (3.5-5.1) mmol/L Chloride 101 (98-107) mmol/L Carbon Dioxide 28 (21-32) mmol/L Anion Gap 7 (3-11) BUN 38 H (6-23) mg/dl Creatinine 1.30 (0.6-1.4) mg/dl Est Cr Clr Drug Dosing 49.9 ml/min eGFR 56.58 BUN/Creatinine Ratio 29.2 H (10-20) Glucose 190 H (70-99(Fasting)) mg/dl POC Glucose 124 H 97 (70-99) mg/dl Calcium 8.9 (8.6-10.3) mg/dl Phosphorus 3.6 (2.5-4.9) mg/dl Magnesium 1.8 (1.7-2.4) mg/dl 01/26/25 01/26/25 Range/Units 16:31 11:28 WBC (4.8-10.8) K/ul RBC (4.70-6.10) M/uL Hgb (14.0-18.0) g/dl Hct (42.0-52.0) % MCV (80.0-100.0) fL MCH (25.0-34.0) pg MCHC (32.0-36.0) g/dL RDW Std Deviation (36.4-46.3) fL RDW Coeff of Guera (11.5-14.5) % Plt Count (130-400) K/uL MPV (9.4-12.4) fL Sodium (136-145) mmol/L Potassium (3.5-5.1) mmol/L Chloride (98-107) mmol/L Carbon Dioxide (21-32) mmol/L Anion Gap (3-11) BUN (6-23) mg/dl Creatinine (0.6-1.4) mg/dl Est Cr Clr Drug Dosing ml/min eGFR BUN/Creatinine Ratio (10-20) Glucose (70-99(Fasting)) mg/dl POC Glucose 165 H 107 H (70-99) mg/dl Calcium (8.6-10.3) mg/dl Phosphorus (2.5-4.9) mg/dl Magnesium (1.7-2.4) mg/dl Medications Administered Current Inpatient Medications Acetaminophen (Acetaminophen 325 Mg Tab) 650 mg PO Q4H PRN PRN Reason: Pain or Fever Stop: 02/23/25 19:17 Last Admin: 01/26/25 21:22 Dose: 650 mg Albuterol (Albuterol Hfa 8 Gm Inhaler) 2 puffs INH Q6H PRN PRN Reason: sob/wheezing Stop: 02/23/25 19:17 Amiodarone HCl (Amiodarone 200 Mg Tab) 200 mg PO TIDM [facility] Stop: 02/26/25 11:59 Aspirin (Aspirin 81 Mg Ectab) 81 mg PO QAM [facility] Stop: 02/25/25 08:59 Last Admin: 01/27/25 09:38 Dose: 81 mg Atorvastatin Calcium (Atorvastatin 40 Mg Tab) 40 mg PO DAILY [facility] Stop: 02/24/25 08:59 Last Admin: 01/27/25 09:39 Dose: 40 mg Cyanocobalamin (Cyanocobalamin (B-12) 500 Mcg Tablet) 1,000 mcg PO DAILY [facility] Stop: 02/24/25 08:59 Last Admin: 01/27/25 09:38 Dose: 1,000 mcg Dextrose (Dextrose 50% 50 Ml Syringe) 25 - 50 ml IV UD PRN; Protocol PRN Reason: Hypoglycemia Protocol Stop: 02/23/25 18:39 Docusate Sodium (Docusate Sodium 100 Mg Cap) 100 mg PO BID PRN PRN Reason: Constipation Stop: 02/23/25 19:17 Fenofibrate (Fenofibrate Nanocrystallized 145 Mg Tablet) 145 mg PO QAM [facility] Stop: 02/24/25 08:59 Last Admin: 01/27/25 09:39 Dose: 145 mg Fluticasone/Vilanterol (Fluticasone/Vilanterol 100/25mcg 14 Puffs/Inhaler) 1 puffs INH DAILY SAIRA; Protocol Stop: 02/24/25 08:59 Last Admin: 01/27/25 09:33 Dose: 1 puffs Furosemide (Furosemide 40 Mg/4 Ml Vial) 20 mg IV BID17 [facility] Stop: 02/25/25 16:59 Last Admin: 01/27/25 09:30 Dose: 20 mg Glucagon (Glucagon For Inj 1 Mg Vial) 1 mg SQ UD PRN; Protocol PRN Reason: Hypoglycemia Protocol Stop: 02/23/25 18:39 Glucose (Glucose 40% Gel 15 Gm Tube) 15 - 30 gm PO UD PRN; Protocol PRN Reason: Hypoglycemia Protocol Stop: 02/23/25 18:39 Glucose (Glucose 10 Tab/Tube) 4 - 8 tab PO UD PRN; Protocol PRN Reason: Hypoglycemia Protocol Stop: 02/23/25 18:39 Guaifenesin (Guaifenesin 600 Mg Tabcr) 600 mg PO Q12 PRN PRN Reason: congestion Stop: 02/23/25 19:17 Last Admin: 01/26/25 10:16 Dose: 600 mg Insulin Aspart (Insulin Aspart Per Unit Charge) 0 units SC ACHS [facility] Stop: 02/23/25 20:59 Last Admin: 01/27/25 09:24 Dose: 7 units Levothyroxine Sodium (Levothyroxine Sodium 25 Mcg Tablet) 25 mcg PO DAILYBB [facility] Stop: 02/24/25 06:29 Last Admin: 01/27/25 06:12 Dose: 25 mcg Magnesium Oxide (Magnesium Oxide 400 Mg Tab) 400 mg PO DAILY SAIRA Stop: 02/24/25 08:59 Last Admin: 01/27/25 09:39 Dose: 400 mg Metoprolol Succinate (Metoprolol Succ 25mg Ext Rel Tab) 25 mg PO BID [facility] Stop: 02/24/25 20:59 Last Admin: 01/27/25 09:38 Dose: 25 mg Miscellaneous (Carbohydrates For Hypoglycemia ) 15 - 30 gm PO UD PRN PRN Reason: Hypoglycemia Protocol Stop: 02/23/25 18:39 Nitroglycerin (Nitroglycerin Sl 0.4 Mg/Tab Tab) 0.4 mg SL Q5M PRN PRN Reason: Chest Pain Stop: 02/23/25 18:00 Last Admin: 01/24/25 18:12 Dose: 0.4 mg Ondansetron HCl (Ondansetron Inj 2 Mg/Ml 2 Ml Vial) 4 mg IV Q6H PRN PRN Reason: Nausea Stop: 02/23/25 19:17 Pantoprazole Sodium (Pantoprazole 40 Mg Tab) 40 mg PO QAM [facility] Stop: 02/24/25 08:59 Last Admin: 01/27/25 09:39 Dose: 40 mg Polyethylene Glycol (Polyethylene (Miralax) 17 Gm Pack) 17 gm PO DAILY PRN PRN Reason: Constipation Stop: 02/23/25 19:17 Sacubitril/Valsartan (Valsartan/Sacubitril 26/24mg Tab) 0.5 tab PO BID [facility] Stop: 02/25/25 12:29 Last Admin: 01/27/25 09:33 Dose: 0.5 tab Spironolactone (Spironolactone 12.5 Mg Tab) 12.5 mg PO DAILY [facility] Stop: 02/25/25 08:59 Last Admin: 01/27/25 09:34 Dose: 12.5 mg Trazodone HCl (Trazodone Hcl 50 Mg Tab) 50 mg PO HS PRN PRN Reason: Sleep Stop: 02/23/25 19:17 Last Admin: 01/26/25 21:22 Dose: 50 mg Warfarin Sodium (Warfarin Sod 3 Mg Tab) 3 mg PO Q2D@1600 [facility] Stop: 02/24/25 15:59 Last Admin: 01/25/25 16:49 Dose: 3 mg Warfarin Sodium (Warfarin Sod 3 Mg Tab) 6 mg PO Q2D@1600 [facility] Stop: 02/25/25 15:59 Last Admin: 01/26/25 17:25 Dose: 6 mg (3) CAD (coronary artery disease) Associated angina: without angina Coronary Disease-Associated Artery/Lesion type: [place] artery [place] vs. transplanted heart: [place] heart Qualified Code(s): I25.10 - Atherosclerotic heart disease of [place] coronary artery without angina pectoris
--- NOTE | 2025-01-27 12:34 | Electrocardiogram Report ---
Test Reason : Blood Pressure : */* mmHG Vent. Rate : 130 BPM Atrial Rate : 130 BPM P-R Int : 192 ms QRS Dur : 162 ms QT Int : 318 ms P-R-T Axes : * 125 -84 degrees QTcB Int : 467 ms Sinus tachycardia with Premature atrial complexes and Premature ventricular complexes or Fusion compl exes Right axis deviation Non-specific intra-ventricular conduction block Abnormal ECG When compared with ECG of 25-Jan-2025 06:44, Fusion complexes are now Present Premature atrial complexes are now Present QRS axis Shifted right T wave inversion now evident in Inferior leads Confirmed by Burak Kapoor ([id number]) on 01/27/2025 12:34:12 PM Referred By: REFERRED SELF Confirmed By: Burak Kapoor
[2025-01-27] MEDS: AMIODARONE 200 MG TAB PO SCH (13:01)
--- NOTE | 2025-01-28 07:56 | Hospitalist Progress Note ---
Date of Service January 28, 2025 Assessment & Plan (1) Heart failure, systolic, with acute decompensation: (2) Hypomagnesemia: (3) CAD (coronary artery disease): (4) HTN (hypertension): (5) Hyperlipidemia: (6) COPD (chronic obstructive pulmonary disease): (7) History of tobacco abuse: (8) Cirrhosis of liver: (9) Hypothyroidism: (10) Apical mural thrombus: Plan This is a 79-year-old male with PMH of CAD, DM II, history of apical mural thrombus on coumadin, HTN, history of cirrhosis of liver, hypothyroidism, hyperlipidemia, polyneuropathy, history of CVA, B12 deficiency, acquired cyst of kidney, BPH, cervical spondylosis, depression, primary insomnia who presents for progressively worsening shortness of breath x 5 days and was found to have decompensated systolic heart failure. Acute decompensated systolic heart failure Recently admitted for RSV bronchiolitis, had echo during admission that showed reduced EF of revealed newly reduced EF of 25-30% (from 40%) with moderate- severe LV hypokinesis [place] better on discharge but has progressive dyspnea on exertion x 5 days Given 20mg IV Lasix in ED and placed on bipap due to work of breathing, no documented hypoxia CXR with stable exam; chronic cardiomegaly and pulmonary vascular congestion in a patient has had prior coronary artery bypass surgery and a left shoulder joint replacement BNP 1090, troponin 39 ECG with sinus rhythm with frequent PVCs, LAD, nonspecific intraventricular conduction block similar to previous Strict I&Os, daily weights Continue reduced Toprol dose of 25mg daily Cardiology consulted Hypomagnesemia Initial Mag 1.4 - replace and monitor Elevated troponin, CAD No acute ECG changes, some chest discomfort earlier today with vomiting x 1 at 0900, pain is still a 3/4, improved with ntg Troponin elevated at 39, repeat 54. Likely ischemic demand 2/2 above but will monitor Most recent cath in December 2022 in setting of unstable angina, s/p PCI to OM 3 with single MAYLIN Continue Toprol at 25 mg, atorvastatin Repeat ECG in AM admitting team discussed with Dr. Read - chest pain likely 2/2 CHF but suggests addition of 324mg aspirin now 4/10 Pt on 2L of suppl. O2 via [place] Cardiology consulted - cont. diuresis 40 lasix bid, start spironolactone, asa. Plan to transition to Entresto from aceinh. Plan to repeat echo 4/11 Echo obtained EF 15-20%, Compared to study last month, LV is now dilated Per cardiology - Continue IV diuretics with reduced dose of furosemide 20 mg twice daily Begin Entresto 1/2 tablet twice daily now greater than 36 hours post enalapril Continue increased dose of metoprolol succinate, spironolactone Discussed prophylactic defibrillator once hemodynamically improved 01/27 Pt had Afib RVR episode yesterday , then converted to sinus rhythm. Per cardiology - Patient responding to IV diuretics and GDMT with less respiratory distress and appropriate diuresis. Renal function essentially stable. Continue current orders Transient atrial fibrillation last evening with poor tolerance. Plan initiate amiodarone 200 mg p.o. 3 times daily. Follow daily EKG Will require pacer defibrillator as management timing dependent on clinical course 01/28 Pt is feeling much better, dyspnea resolved, pt is on RA Per cardiology - Discontinue IV furosemide - Begin furosemide 40 mg p.o. daily Continue Entresto, spironolactone Continue metoprolol succinate 25 mg twice per day Reduce amiodarone to 200 mg twice per day follow-up EKG in a.m. given QT prolongation Needs daily INR given interaction with amiodarone and warfarin Will need pacer defibrillator as part of ongoing management likely biventricular device DM II A1c 5.5 in December 2024 Hold home agents SSI while in-patient BSG AC HS COPD Appears compensated Completed abx and pred taper from last admission Continue Spiriva Awaiting PFT results from 4/8 H/o apical mural thrombus Noted during December 2022 monitor INR while admitted History of liver cirrhosis Follows with [facility]. No abnormalities noted on LFTs Continue diuresis as above, monitor Hypothyroidism Continue levothyroxine DVT Ppx: coumadin Code status: FULL PCP: Dr. Han Dispo: PCU Admission and Anticipated Discharge Date Admission Date: January 24, 2025 Subjective Pt seen in follow up of dyspnea, secondary to acute CHF recently hospitalized w/ RSV, hypoxia, seen by pulm. at that time Currently lying in bed in NAD, on RA, reports feeling much better today, reports sleeping well as well no fever, chills, no abd. pain, n/v Cardiology consulted and following closely - started on amiodarone, will cont. IV lasix switch to po now Review of Systems Review of Systems: All systems reviewed & are unremarkable except as noted in Subjective Physical Exam Physical Exam: GENERAL: Alert and oriented x3. NAD, on RA HEENT: NC/AT. Pupils equal, round and reactive to light. Oral mucosa moist. NECK: No JVD, no neck masses. HEART: S1 and S2 heard. Regular rate and rhythm. No murmur RESPIRATORY: No accessory muscle use. No wheezing ABDOMEN: Soft, bowel sounds present, nontender NEURO: awake, alert, answers appropriately, No facial asymmetry. Speech is clear. Moves extremities. EXTREMITIES: no le edema, no erythema seen. Results & Data Results & Data Vital Signs (Past 12 Hours) Vital Signs Temp Pulse Pulse Resp BP Pulse Ox O2 Del Method 01/28/25 07:27 36.6 C 78 18 106/70 90 Room Air 01/28/25 03:24 37.0 C 80 16 126/80 96 Room Air 01/27/25 22:59 36.8 C 80 17 96 Nasal Cannula 01/27/25 21:45 77 O2 Flow Rate 01/28/25 07:27 01/28/25 03:24 01/27/25 22:59 2 01/27/25 21:45 Laboratory Results 01/28/25 01/28/25 01/28/25 Range/Units 10:58 10:07 07:22 PT 20.6 H (9.0-12.0) Seconds INR 2.0 H (0.9-1.1) Sodium (136-145) mmol/L Potassium (3.5-5.1) mmol/L Chloride (98-107) mmol/L Carbon Dioxide (21-32) mmol/L Anion Gap (3-11) BUN (6-23) mg/dl Creatinine (0.6-1.4) mg/dl Est Cr Clr Drug Dosing ml/min eGFR BUN/Creatinine Ratio (10-20) Glucose (70-99(Fasting)) mg/dl POC Glucose 115 H 143 H (70-99) mg/dl Calcium (8.6-10.3) mg/dl Phosphorus (2.5-4.9) mg/dl Magnesium (1.7-2.4) mg/dl 01/28/25 01/27/25 01/27/25 Range/Units 07:01 20:09 16:04 PT (9.0-12.0) Seconds INR (0.9-1.1) Sodium 135 L (136-145) mmol/L Potassium 4.2 (3.5-5.1) mmol/L Chloride 99 (98-107) mmol/L Carbon Dioxide 30 (21-32) mmol/L Anion Gap 6 (3-11) BUN 41 H (6-23) mg/dl Creatinine 1.32 (0.6-1.4) mg/dl Est Cr Clr Drug Dosing 49.2 ml/min eGFR 55.55 BUN/Creatinine Ratio 31.1 H (10-20) Glucose 138 H (70-99(Fasting)) mg/dl POC Glucose 117 H 165 H (70-99) mg/dl Calcium 8.8 (8.6-10.3) mg/dl Phosphorus 3.0 (2.5-4.9) mg/dl Magnesium 1.8 (1.7-2.4) mg/dl Medications Administered Current Inpatient Medications Acetaminophen (Acetaminophen 325 Mg Tab) 650 mg PO Q4H PRN PRN Reason: Pain or Fever Stop: 02/23/25 19:17 Last Admin: 01/26/25 21:22 Dose: 650 mg Albuterol (Albuterol Hfa 8 Gm Inhaler) 2 puffs INH Q6H PRN PRN Reason: sob/wheezing Stop: 02/23/25 19:17 Amiodarone HCl (Amiodarone 200 Mg Tab) 200 mg PO TIDM [facility] Stop: 02/26/25 11:59 Last Admin: 01/28/25 07:14 Dose: 200 mg Aspirin (Aspirin 81 Mg Ectab) 81 mg PO QAM [facility] Stop: 02/25/25 08:59 Last Admin: 01/27/25 09:38 Dose: 81 mg Atorvastatin Calcium (Atorvastatin 40 Mg Tab) 40 mg PO DAILY [facility] Stop: 02/24/25 08:59 Last Admin: 01/27/25 09:39 Dose: 40 mg Cyanocobalamin (Cyanocobalamin (B-12) 500 Mcg Tablet) 1,000 mcg PO DAILY [facility]A Stop: 02/24/25 08:59 Last Admin: 01/27/25 09:38 Dose: 1,000 mcg Dextrose (Dextrose 50% 50 Ml Syringe) 25 - 50 ml IV UD PRN; Protocol PRN Reason: Hypoglycemia Protocol Stop: 02/23/25 18:39 Docusate Sodium (Docusate Sodium 100 Mg Cap) 100 mg PO BID PRN PRN Reason: Constipation Stop: 02/23/25 19:17 Fenofibrate (Fenofibrate Nanocrystallized 145 Mg Tablet) 145 mg PO QAM [facility] Stop: 02/24/25 08:59 Last Admin: 01/27/25 09:39 Dose: 145 mg Fluticasone/Vilanterol (Fluticasone/Vilanterol 100/25mcg 14 Puffs/Inhaler) 1 puffs INH DAILY SAIRA; Protocol Stop: 02/24/25 08:59 Last Admin: 01/27/25 09:33 Dose: 1 puffs Furosemide (Furosemide 40 Mg/4 Ml Vial) 20 mg IV BID17 [facility] Stop: 02/25/25 16:59 Last Admin: 01/27/25 09:30 Dose: 20 mg Glucagon (Glucagon For Inj 1 Mg Vial) 1 mg SQ UD PRN; Protocol PRN Reason: Hypoglycemia Protocol Stop: 02/23/25 18:39 Glucose (Glucose 40% Gel 15 Gm Tube) 15 - 30 gm PO UD PRN; Protocol PRN Reason: Hypoglycemia Protocol Stop: 02/23/25 18:39 Glucose (Glucose 10 Tab/Tube) 4 - 8 tab PO UD PRN; Protocol PRN Reason: Hypoglycemia Protocol Stop: 02/23/25 18:39 Guaifenesin (Guaifenesin 600 Mg Tabcr) 600 mg PO Q12 PRN PRN Reason: congestion Stop: 02/23/25 19:17 Last Admin: 01/26/25 10:16 Dose: 600 mg Insulin Aspart (Insulin Aspart Per Unit Charge) 0 units SC ACHS [facility] Stop: 02/23/25 20:59 Last Admin: 01/27/25 20:26 Dose: Not Given Levothyroxine Sodium (Levothyroxine Sodium 25 Mcg Tablet) 25 mcg PO DAILYBB [facility] Stop: 02/24/25 06:29 Last Admin: 01/28/25 05:37 Dose: 25 mcg Magnesium Oxide (Magnesium Oxide 400 Mg Tab) 400 mg PO DAILY [facility]IRA Stop: 02/24/25 08:59 Last Admin: 01/27/25 09:39 Dose: 400 mg Metoprolol Succinate (Metoprolol Succ 25mg Ext Rel Tab) 25 mg PO BID [facility] Stop: 02/24/25 20:59 Last Admin: 01/27/25 20:28 Dose: 25 mg Miscellaneous (Carbohydrates For Hypoglycemia ) 15 - 30 gm PO UD PRN PRN Reason: Hypoglycemia Protocol Stop: 02/23/25 18:39 Nitroglycerin (Nitroglycerin Sl 0.4 Mg/Tab Tab) 0.4 mg SL Q5M PRN PRN Reason: Chest Pain Stop: 02/23/25 18:00 Last Admin: 01/24/25 18:12 Dose: 0.4 mg Pantoprazole Sodium (Pantoprazole 40 Mg Tab) 40 mg PO QAM [facility] Stop: 02/24/25 08:59 Last Admin: 01/27/25 09:39 Dose: 40 mg Polyethylene Glycol (Polyethylene (Miralax) 17 Gm Pack) 17 gm PO DAILY PRN PRN Reason: Constipation Stop: 02/23/25 19:17 Sacubitril/Valsartan (Valsartan/Sacubitril 26/24mg Tab) 0.5 tab PO BID [facility] Stop: 02/25/25 12:29 Last Admin: 01/27/25 20:28 Dose: 0.5 tab Spironolactone (Spironolactone 12.5 Mg Tab) 12.5 mg PO DAILY [facility]A Stop: 02/25/25 08:59 Last Admin: 01/27/25 09:34 Dose: 12.5 mg Trazodone HCl (Trazodone Hcl 50 Mg Tab) 50 mg PO HS PRN PRN Reason: Sleep Stop: 02/23/25 19:17 Last Admin: 01/27/25 20:29 Dose: 50 mg Warfarin Sodium (Warfarin Sod 3 Mg Tab) 3 mg PO Q2D@1600 [facility] Stop: 02/24/25 15:59 Last Admin: 01/27/25 17:14 Dose: 3 mg Warfarin Sodium (Warfarin Sod 3 Mg Tab) 6 mg PO Q2D@1600 [facility] Stop: 02/25/25 15:59 Last Admin: 01/26/25 17:25 Dose: 6 mg (3) CAD (coronary artery disease) Associated angina: without angina Coronary Disease-Associated Artery/Lesion type: [place] artery [place] vs. transplanted heart: [place] heart Qualified Code(s): I25.10 - Atherosclerotic heart disease of [place] coronary artery without angina pectoris
[2025-01-28 08:22] LABS: BUN Creatinine Ratio 31.1 (10-20); Calcium 8.8 mg/dl (8.6-10.3); Creatinine Clr Calc Pharmacy 49.2 ml/min; Magnesium 1.8 mg/dl (1.7-2.4); Potassium 4.2 mmol/L (3.5-5.1)
--- NOTE | 2025-01-28 09:39 | Cardiology Progress Note ---
Date of Service January 28, 2025 Assessment & Plan (1) Acute on chronic systolic heart failure: (2) CAD (coronary artery disease): (3) MARC (dyspnea on exertion): (4) Paroxysmal atrial fibrillation: Plan 79-year-old male with complex past history including ischemic cardiomyopathy remote coronary bypass grafting and coronary inventions recently hospitalized for acute hypoxic respiratory failure RSV infection. Presents now with worsening dyspnea and fatigue signs and symptoms of likely acute on chronic systolic heart failure Plan: Increase furosemide to 40 mg twice per day IV. Add spironolactone 12.5 mg p.o. daily. Hold enalapril with ultimate goals to transition to Entresto after ARELIS inhibitor washout. Consider topical nitrates though blood pressure does not appear to all allow at this time Follow closely for underlying pulmonary disease as well, recently on prednisone CHF instructions Continue chronic anticoagulation with warfarin Add aspirin 81 mg/day Repeat echocardiogram given acute decompensation 01/26/2025 1. Acute on chronic decompensated systolic heart failure Responding to IV diuretics 2. Ischemic cardiomyopathy with severely reduced left ventricular systolic function 3. Severe [place] vessel coronary disease status post coronary bypass grafting Plan: Continue IV diuretics with reduced dose of furosemide 20 mg twice daily Begin Entresto / 1/2 tablet twice daily now greater than 36 hours post enalapril Continue increased dose of metoprolol succinate, spironolactone Discussed prophylactic defibrillator once hemodynamically improved 01/27/2025 Recommendations/plan. Patient responding to IV diuretics and GDMT with less respiratory distress and appropriate diuresis. Renal function essentially stable. Continue current orders Supplement potassium today Transient atrial fibrillation last evening with poor tolerance. Plan initiate amiodarone 200 mg p.o. 3 times daily. Follow daily EKG Will require pacer defibrillator as management timing dependent on clinical course 01/28/2025 1. Acute on chronic decompensated systolic heart failure 2. Ischemic cardiomyopathy with severely reduced ejection fraction, EF 15 to 20%, Prior apical thrombus 3. Severe [place] vessel coronary artery disease status post coronary bypass grafting, coronary intervention left circumflex last procedure 2022 4. Paroxysmal atrial fibrillation 5. Conduction system disease Patient clinically improved with diuresis and initiation of GDMT. Tolerating treatments. Plan: Discontinue IV furosemide Continue Entresto, spironolactone Begin furosemide 40 mg p.o. daily Continue metoprolol succinate 25 mg twice per day Reduce amiodarone to 200 mg twice per day follow-up EKG in a.m. given QT prolongation Needs daily INR given interaction with amiodarone and warfarin Will need pacer defibrillator as part of ongoing management likely biventricular device Admission and Anticipated Discharge Date Admission Date: January 24, 2025 Subjective Patient seen and personally examined, telemetry reviewed Respiratory status much improved. No chest pains, tachypalpitations. No further atrial fibrillation on telemetry. Lower extremity edema improved Review of Systems Review of Systems: All systems reviewed & are unremarkable except as noted in Subjective Physical Exam Constitutional: no acute distress Eyes: PERRL, conjunctivae normal, anicteric sclerae ENMT: external ear and nose normal, oropharynx normal Neck: trachea midline, no thyromegaly Respiratory: Auscultation: + diminished lung sounds Cardiovascular: Rate/Rhythm: regular rate and regular rhythm Extremities: no pedal edema Gastrointestinal (Abdomen): normal bowel sounds, soft, nontender, no hepatosplenomegaly Musculoskeletal: no cyanosis or clubbing, extremities motor strength 5/5 Neurologic: PERRL, EOMI, accommodation nl, no face palsy, no dysarthria Psychiatric: A+Ox3, euthymic affect Results & Data Vital Signs (Past 12 Hours) Vital Signs Temp Pulse Pulse Resp BP Pulse Ox O2 Del Method 01/28/25 07:27 36.6 C 78 18 106/70 90 Room Air 01/28/25 03:24 37.0 C 80 16 126/80 96 Room Air 01/27/25 22:59 36.8 C 80 17 96 Nasal Cannula 01/27/25 21:45 77 O2 Flow Rate 01/28/25 07:27 01/28/25 03:24 01/27/25 22:59 2 01/27/25 21:45 Laboratory Results Laboratory Results - last 24 hr 01/27/25 01/27/25 01/27/25 11:38 12:03 16:04 Sodium Potassium Chloride Carbon Dioxide Anion Gap BUN Creatinine Est Cr Clr Drug Dosing eGFR BUN/Creatinine Ratio Glucose POC Glucose 64 L* 129 H 165 H Calcium Phosphorus Magnesium 01/27/25 01/28/25 01/28/25 20:09 07:01 07:22 Sodium 135 L Potassium 4.2 Chloride 99 Carbon Dioxide 30 Anion Gap 6 BUN 41 H Creatinine 1.32 Est Cr Clr Drug Dosing 49.2 eGFR 55.55 BUN/Creatinine Ratio 31.1 H Glucose 138 H POC Glucose 117 H 143 H Calcium 8.8 Phosphorus 3.0 Magnesium 1.8 (2) CAD (coronary artery disease) Associated angina: without angina Coronary Disease-Associated Artery/Lesion type: [place] artery [place] vs. transplanted heart: [place] heart Qualified Code(s): I25.10 - Atherosclerotic heart disease of [place] coronary artery without angina pectoris
[2025-01-28] MEDS: FUROSEMIDE 40 MG TAB PO SCH (09:56)
[2025-01-28 11:02] LABS: Prothrombin Time 20.6 Seconds (9.0-12.0)
[2025-01-28] MEDS: AMIODARONE 200 MG TAB PO SCH (20:30)
[2025-01-29 07:00] LABS: Creatinine Clr Calc Pharmacy 42.5 ml/min; Magnesium 1.9 mg/dl (1.7-2.4); Potassium 4.5 mmol/L (3.5-5.1)
[2025-01-29 08:03] LABS: INR 2.2 (0.9-1.1); Prothrombin Time 21.9 Seconds (9.0-12.0)
--- NOTE | 2025-01-29 11:08 | Electrocardiogram Report ---
Test Reason : Blood Pressure : */* mmHG Vent. Rate : 85 BPM Atrial Rate : 70 BPM P-R Int : 186 ms QRS Dur : 152 ms QT Int : 438 ms P-R-T Axes : 56 -55 128 degrees QTcB Int : 521 ms Sinus rhythm with frequent Premature ventricular complexes (likely due to PACs) Left axis deviation Left bundle branch block Abnormal ECG Confirmed by Williams Baumann ([id number] on 01/29/2025 11:08:30 AM Referred By: REFERRED SELF Confirmed By: Williams Baumann
--- NOTE | 2025-01-29 13:19 | Electrocardiogram Report ---
Test Reason : Blood Pressure : */* mmHG Vent. Rate : 66 BPM Atrial Rate : 66 BPM P-R Int : 174 ms QRS Dur : 150 ms QT Int : 450 ms P-R-T Axes : 53 -54 130 degrees QTcB Int : 471 ms Normal sinus rhythm Left axis deviation Left ventricular hypertrophy with QRS widening Abnormal ECG When compared with ECG of 28-Jan-2025 09:08, Premature ventricular complexes are no longer Present Left bundle branch block is no longer Present Confirmed by Williams Baumann ([id number] on 01/29/2025 1:19:26 PM Referred By: REFERRED SELF Confirmed By: Williams Baumann
--- NOTE | 2025-01-29 15:26 | Hospitalist Progress Note ---
Date of Service January 29, 2025 Assessment & Plan (1) Heart failure, systolic, with acute decompensation: (2) Hypomagnesemia: (3) CAD (coronary artery disease): (4) HTN (hypertension): (5) Hyperlipidemia: (6) COPD (chronic obstructive pulmonary disease): (7) History of tobacco abuse: (8) Cirrhosis of liver: (9) Hypothyroidism: (10) Apical mural thrombus: Plan This is a 79-year-old male with PMH of CAD, DM II, history of apical mural thrombus on coumadin, HTN, history of cirrhosis of liver, hypothyroidism, hyperlipidemia, polyneuropathy, history of CVA, B12 deficiency, acquired cyst of kidney, BPH, cervical spondylosis, depression, primary insomnia who presents for progressively worsening shortness of breath x 5 days and was found to have decompensated systolic heart failure. Acute decompensated systolic heart failure Recently admitted for RSV bronchiolitis, had echo during admission that showed reduced EF of revealed newly reduced EF of 25-30% (from 40%) with moderate- severe LV hypokinesis [place] better on discharge but has progressive dyspnea on exertion x 5 days Given 20mg IV Lasix in ED and placed on bipap due to work of breathing, no documented hypoxia CXR with stable exam; chronic cardiomegaly and pulmonary vascular congestion in a patient has had prior coronary artery bypass surgery and a left shoulder joint replacement BNP 1090, troponin 39 ECG with sinus rhythm with frequent PVCs, LAD, nonspecific intraventricular conduction block similar to previous Strict I&Os, daily weights Cardiology consulted Hypomagnesemia Initial Mag 1.4 - replace and monitor Elevated troponin, CAD No acute ECG changes, some chest discomfort earlier today with vomiting x 1 at 0900, pain is still a 3/4, improved with ntg Troponin elevated at 39, repeat 54. Likely ischemic demand 2/2 above but will monitor Most recent cath in December 2022 in setting of unstable angina, s/p PCI to OM 3 with single MAYLIN Continue Toprol at 25 mg, atorvastatin Repeat ECG in AM admitting team discussed with Dr. Read - chest pain likely 2/2 CHF but suggests addition of 324mg aspirin now 01/25 Pt on 2L of suppl. O2 via [place] Cardiology consulted - cont. diuresis 40 lasix bid, start spironolactone, asa. Plan to transition to Entresto from aceinh. Plan to repeat echo 01/26 Echo obtained EF 15-20%, Compared to study last month, LV is now dilated Per cardiology - Continue IV diuretics with reduced dose of furosemide 20 mg twice daily Begin Entresto 1/2 tablet twice daily now greater than 36 hours post enalapril Continue increased dose of metoprolol succinate, spironolactone Discussed prophylactic defibrillator once hemodynamically improved 01/27 Pt had Afib RVR episode yesterday , then converted to sinus rhythm. Per cardiology - Patient responding to IV diuretics and GDMT with less respiratory distress and appropriate diuresis. Renal function essentially stable. Continue current orders Transient atrial fibrillation last evening with poor tolerance. Plan initiate amiodarone 200 mg p.o. 3 times daily. Follow daily EKG Will require pacer defibrillator as management timing dependent on clinical course 01/28 Pt is feeling much better, dyspnea resolved, pt is on RA Per cardiology - Discontinue IV furosemide - Begin furosemide 40 mg p.o. daily Continue Entresto, spironolactone Continue metoprolol succinate 25 mg twice per day Reduce amiodarone to 200 mg twice per day follow-up EKG in a.m. given QT prolongation Needs daily INR given interaction with amiodarone and warfarin Will need pacer defibrillator as part of ongoing management likely biventricular device 01/29 Plan for ICD on 01/31/2025 decreased dose of warfarin, monitor INR DM II A1c 5.5 in December 2024 Hold home agents SSI while in-patient BSG AC HS COPD Appears compensated Completed abx and pred taper from last admission Continue Spiriva Awaiting PFT results from 8 H/o apical mural thrombus Noted during December 2022 monitor INR while admitted History of liver cirrhosis Follows with [facility]. No abnormalities noted on LFTs Continue diuresis as above, monitor Hypothyroidism Continue levothyroxine DVT Ppx: coumadin Code status: FULL PCP: Dr. Han Dispo: PCU Admission and Anticipated Discharge Date Admission Date: January 24, 2025 Subjective Pt seen in follow up of dyspnea, secondary to acute CHF recently hospitalized w/ RSV, hypoxia, seen by pulm. at that time Currently lying in bed in NAD, on RA, reports feeling much better overall, no chest pain, no shortness of breath no fever, chills, no abd. pain, n/v Cardiology consulted and following closely - started on amiodarone, plan for ICD on Review of Systems Review of Systems: All systems reviewed & are unremarkable except as noted in Subjective Physical Exam Physical Exam: GENERAL: Alert and oriented x3. NAD, on RA HEENT: NC/AT. Pupils equal, round and reactive to light. Oral mucosa moist. NECK: No JVD, no neck masses. HEART: S1 and S2 heard. Regular rate and rhythm. No murmur RESPIRATORY: No accessory muscle use. No wheezing ABDOMEN: Soft, bowel sounds present, nontender NEURO: awake, alert, answers appropriately, No facial asymmetry. Speech is clear. Moves extremities. EXTREMITIES: no le edema, no erythema seen. Results & Data Results & Data Vital Signs (Past 12 Hours) Vital Signs Temp Pulse Resp BP Pulse Ox O2 Del Method 01/29/25 11:16 36.5 C 72 18 97/64 L 94 Room Air 01/29/25 07:29 36.4 C L 75 19 101/68 96 Room Air Laboratory Results 01/29/25 01/29/25 01/29/25 Range/Units 11:13 07:14 07:10 PT 21.9 H INR 2.2 H Sodium (136-145) mmol/L Potassium (3.5-5.1) mmol/L Chloride (98-107) mmol/L Carbon Dioxide (21-32) mmol/L Anion Gap (3-11) BUN (6-23) mg/dl Creatinine (0.6-1.4) mg/dl Est Cr Clr Drug Dosing ml/min eGFR BUN/Creatinine Ratio (10-20) Glucose (70-99(Fasting)) mg/dl POC Glucose 122 H 157 H (70-99) mg/dl Calcium (8.6-10.3) mg/dl Magnesium (1.7-2.4) mg/dl 01/29/25 01/28/25 01/28/25 Range/Units 06:20 20:04 16:17 PT Cancelled INR Cancelled Sodium 138 (136-145) mmol/L Potassium 4.5 (3.5-5.1) mmol/L Chloride 103 (98-107) mmol/L Carbon Dioxide 29 (21-32) mmol/L Anion Gap 6 (3-11) BUN 38 H (6-23) mg/dl Creatinine 1.52 H (0.6-1.4) mg/dl Est Cr Clr Drug Dosing 42.5 ml/min eGFR 46.90 BUN/Creatinine Ratio 25.0 H (10-20) Glucose 145 H (70-99(Fasting)) mg/dl POC Glucose 112 H 123 H (70-99) mg/dl Calcium 9.0 (8.6-10.3) mg/dl Magnesium 1.9 (1.7-2.4) mg/dl Medications Administered Current Inpatient Medications Acetaminophen (Acetaminophen 325 Mg Tab) 650 mg PO Q4H PRN PRN Reason: Pain or Fever Stop: 02/23/25 19:17 Last Admin: 01/26/25 21:22 Dose: 650 mg Albuterol (Albuterol Hfa 8 Gm Inhaler) 2 puffs INH Q6H PRN PRN Reason: sob/wheezing Stop: 02/23/25 19:17 Amiodarone HCl (Amiodarone 200 Mg Tab) 200 mg PO BID [facility] Stop: 02/27/25 20:59 Last Admin: 01/29/25 08:05 Dose: 200 mg Aspirin (Aspirin 81 Mg Ectab) 81 mg PO QAM [facility] Stop: 02/25/25 08:59 Last Admin: 01/29/25 08:05 Dose: 81 mg Atorvastatin Calcium (Atorvastatin 40 Mg Tab) 40 mg PO DAILY [facility] Stop: 02/24/25 08:59 Last Admin: 01/29/25 08:10 Dose: 40 mg Cyanocobalamin (Cyanocobalamin (B-12) 500 Mcg Tablet) 1,000 mcg PO DAILY [facility] Stop: 02/24/25 08:59 Last Admin: 01/29/25 08:06 Dose: 1,000 mcg Dextrose (Dextrose 50% 50 Ml Syringe) 25 - 50 ml IV UD PRN; Protocol PRN Reason: Hypoglycemia Protocol Stop: 02/23/25 18:39 Docusate Sodium (Docusate Sodium 100 Mg Cap) 100 mg PO BID PRN PRN Reason: Constipation Stop: 02/23/25 19:17 Fenofibrate (Fenofibrate Nanocrystallized 145 Mg Tablet) 145 mg PO QAM [facility] Stop: 02/24/25 08:59 Last Admin: 01/29/25 08:06 Dose: 145 mg Fluticasone/Vilanterol (Fluticasone/Vilanterol 100/25mcg 14 Puffs/Inhaler) 1 puffs INH DAILY [facility]; Protocol Stop: 02/24/25 08:59 Last Admin: 01/29/25 08:11 Dose: 1 puffs Furosemide (Furosemide 40 Mg Tab) 40 mg PO QAM [facility] Stop: 02/27/25 09:44 Last Admin: 01/29/25 08:07 Dose: 40 mg Glucagon (Glucagon For Inj 1 Mg Vial) 1 mg SQ UD PRN; Protocol PRN Reason: Hypoglycemia Protocol Stop: 02/23/25 18:39 Glucose (Glucose 40% Gel 15 Gm Tube) 15 - 30 gm PO UD PRN; Protocol PRN Reason: Hypoglycemia Protocol Stop: 02/23/25 18:39 Glucose (Glucose 10 Tab/Tube) 4 - 8 tab PO UD PRN; Protocol PRN Reason: Hypoglycemia Protocol Stop: 02/23/25 18:39 Guaifenesin (Guaifenesin 600 Mg Tabcr) 600 mg PO Q12 PRN PRN Reason: congestion Stop: 02/23/25 19:17 Last Admin: 01/26/25 10:16 Dose: 600 mg Insulin Aspart (Insulin Aspart Per Unit Charge) 0 units SC ACHS [facility] Stop: 02/23/25 20:59 Last Admin: 01/29/25 12:06 Dose: 3 units Levothyroxine Sodium (Levothyroxine Sodium 25 Mcg Tablet) 25 mcg PO DAILYBB [facility] Stop: 02/24/25 06:29 Last Admin: 01/29/25 05:36 Dose: 25 mcg Magnesium Oxide (Magnesium Oxide 400 Mg Tab) 400 mg PO DAILY [facility] Stop: 02/24/25 08:59 Last Admin: 01/29/25 08:07 Dose: 400 mg Metoprolol Succinate (Metoprolol Succ 25mg Ext Rel Tab) 25 mg PO BID [facility] Stop: 02/24/25 20:59 Last Admin: 01/29/25 08:07 Dose: 25 mg Miscellaneous (Carbohydrates For Hypoglycemia ) 15 - 30 gm PO UD PRN PRN Reason: Hypoglycemia Protocol Stop: 02/23/25 18:39 Nitroglycerin (Nitroglycerin Sl 0.4 Mg/Tab Tab) 0.4 mg SL Q5M PRN PRN Reason: Chest Pain Stop: 02/23/25 18:00 Last Admin: 01/24/25 18:12 Dose: 0.4 mg Pantoprazole Sodium (Pantoprazole 40 Mg Tab) 40 mg PO QAM [facility] Stop: 02/24/25 08:59 Last Admin: 01/29/25 08:07 Dose: 40 mg Polyethylene Glycol (Polyethylene (Miralax) 17 Gm Pack) 17 gm PO DAILY PRN PRN Reason: Constipation Stop: 02/23/25 19:17 Sacubitril/Valsartan (Valsartan/Sacubitril 26/24mg Tab) 0.5 tab PO BID [facility] Stop: 02/25/25 12:29 Last Admin: 01/29/25 08:07 Dose: 0.5 tab Spironolactone (Spironolactone 12.5 Mg Tab) 12.5 mg PO DAILY [facility] Stop: 02/25/25 08:59 Last Admin: 01/29/25 08:07 Dose: 12.5 mg Trazodone HCl (Trazodone Hcl 50 Mg Tab) 50 mg PO HS PRN PRN Reason: Sleep Stop: 02/23/25 19:17 Last Admin: 01/28/25 20:29 Dose: 50 mg Warfarin Sodium (Warfarin Sod 3 Mg Tab) 3 mg PO Q2D@1600 [facility] Stop: 02/24/25 15:59 Last Admin: 01/27/25 17:14 Dose: 3 mg Warfarin Sodium (Warfarin Sod 3 Mg Tab) 6 mg PO Q2D@1600 [facility] Stop: 02/25/25 15:59 Last Admin: 01/28/25 17:12 Dose: 6 mg (3) CAD (coronary artery disease) Associated angina: without angina Coronary Disease-Associated Artery/Lesion type: [place] artery [place] vs. transplanted heart: [place] heart Qualified Code(s): I25.10 - Atherosclerotic heart disease of [place] coronary artery without angina pectoris
--- NOTE | 2025-01-29 15:35 | Cardiology Progress Note ---
Date of Service January 29, 2025 Assessment & Plan (1) Acute on chronic systolic heart failure: (2) CAD (coronary artery disease): (3) MARC (dyspnea on exertion): (4) Paroxysmal atrial fibrillation: Plan 79-year-old male with complex past history including ischemic cardiomyopathy remote coronary bypass grafting and coronary inventions recently hospitalized for acute hypoxic respiratory failure RSV infection. Presents now with worsening dyspnea and fatigue signs and symptoms of likely acute on chronic systolic heart failure with decline in ejection fraction to the range of 15-20%, IVCD, intermittent left bundle branch block, QRS duration 142 ms Plan: Furosemide 40 mg daily Continue Entresto, spironolactone Continue metoprolol succinate 25 mg twice per day Continue amiodarone 200 mg twice per day Needs daily INR given interaction with amiodarone and warfarin Will need pacer defibrillator as part of ongoing management likely biventricular device Admission and Anticipated Discharge Date Admission Date: January 24, 2025 Subjective Patient seen in cardiology follow-up. Describes feeling improvement in his shortness of breath compared to yesterday. Denies orthopnea. Telemetry reveals sinus rhythm in the 60s. A 6 beat run of nonsustained ventricular tachycardia was observed at 3:29 AM Physical Exam Constitutional: no acute distress Eyes: PERRL, conjunctivae normal, anicteric sclerae ENMT: external ear and nose normal, oropharynx normal Neck: trachea midline, no thyromegaly Respiratory: Auscultation: + diminished lung sounds and + crackles; no wheezes Cardiovascular: Rate/Rhythm: regular rate and regular rhythm Vessels: + JVD Extremities: no pedal edema Gastrointestinal (Abdomen): normal bowel sounds, soft, nontender, no hepatosplenomegaly Inspection/Auscultation: + abdomen distended Musculoskeletal: no cyanosis or clubbing, extremities motor strength 5/5 Neurologic: PERRL, EOMI, accommodation nl, no face palsy, no dysarthria Psychiatric: A+Ox3, euthymic affect Results & Data Vital Signs (Past 12 Hours) Vital Signs Temp Pulse Resp BP Pulse Ox O2 Del Method 01/29/25 11:16 36.5 C 72 18 97/64 L 94 Room Air 01/29/25 07:29 36.4 C L 75 19 101/68 96 Room Air Laboratory Results Coagulation 01/29/25 01/29/25 Range/Units 06:20 07:14 PT Cancelled 21.9 H Comprehensive Metabolic Panel 01/29/25 Range/Units 06:20 Sodium 138 (136-145) mmol/L Potassium 4.5 (3.5-5.1) mmol/L Chloride 103 (98-107) mmol/L Carbon Dioxide 29 (21-32) mmol/L BUN 38 H (6-23) mg/dl Creatinine 1.52 H (0.6-1.4) mg/dl Glucose 145 H (70-99(Fasting)) mg/dl Calcium 9.0 (8.6-10.3) mg/dl Intake and Output 01/29/25 01/29/25 01/29/25 06:59 14:59 22:59 Intake Total 900 / 900 Output Total 300 / 951 205 / 205 Balance - 14 695 / 695 Intake: Oral 900 / 900 Output: Urine 300 / 950 203 / 203 # Bowel Movements 2 / 2 Other: # Unmeasured Voids 2 Weight 85.4 kg Weight Measurement Method [facility] (2) CAD (coronary artery disease) Coronary Disease-Associated Artery/Lesion type: [place] artery [place] vs. transplanted heart: [place] heart Associated angina: without angina Qualified Code(s): I25.10 - Atherosclerotic heart disease of [place] coronary artery without angina pectoris
--- NOTE | 2025-01-29 17:06 | Communication Note ---
Date of Service: January 29, 2025 Planning for BiV ICD on Wednesday01/31/25. Reduce coumadin dose to 2.5 mg today for goal INR of 2. Repeat INR tomorrow.
[2025-01-29] MEDS: WARFARIN SOD 2.5 MG TAB PO ONE (18:01)
[2025-01-30 09:01] LABS: BUN Creatinine Ratio 22.8 (10-20); Calcium 8.8 mg/dl (8.6-10.3); Creatinine Clr Calc Pharmacy 41.1 ml/min; Magnesium 1.9 mg/dl (1.7-2.4); Phosphorus 2.9 mg/dl (2.5-4.9); Potassium 4.5 mmol/L (3.5-5.1)
[2025-01-30 09:10] LABS: INR 2.5 (0.9-1.1); Prothrombin Time 25.4 Seconds (9.0-12.0)
--- NOTE | 2025-01-30 10:36 | Hospitalist Progress Note ---
Date of Service January 30, 2025 Assessment & Plan (1) Heart failure, systolic, with acute decompensation: (2) Hypomagnesemia: (3) CAD (coronary artery disease): (4) HTN (hypertension): (5) Hyperlipidemia: (6) COPD (chronic obstructive pulmonary disease): (7) History of tobacco abuse: (8) Cirrhosis of liver: (9) Hypothyroidism: (10) Apical mural thrombus: Plan This is a 79-year-old male with PMH of CAD, DM II, history of apical mural thrombus on coumadin, HTN, history of cirrhosis of liver, hypothyroidism, hyperlipidemia, polyneuropathy, history of CVA, B12 deficiency, acquired cyst of kidney, BPH, cervical spondylosis, depression, primary insomnia who presents for progressively worsening shortness of breath x 5 days and was found to have decompensated systolic heart failure. Acute decompensated systolic heart failure Recently admitted for RSV bronchiolitis, had echo during admission that showed reduced EF of revealed newly reduced EF of 25-30% (from 40%) with moderate- severe LV hypokinesis [place] better on discharge but has progressive dyspnea on exertion x 5 days Given 20mg IV Lasix in ED and placed on bipap due to work of breathing, no documented hypoxia CXR with stable exam; chronic cardiomegaly and pulmonary vascular congestion in a patient has had prior coronary artery bypass surgery and a left shoulder joint replacement BNP 1090, troponin 39 ECG with sinus rhythm with frequent PVCs, LAD, nonspecific intraventricular conduction block similar to previous Strict I&Os, daily weights Cardiology consulted Hypomagnesemia Initial Mag 1.4 - replace and monitor Elevated troponin, CAD No acute ECG changes, some chest discomfort earlier today with vomiting x 1 at 0900, pain is still a 3/4, improved with ntg Troponin elevated at 39, repeat 54. Likely ischemic demand 2/2 above but will monitor Most recent cath in December 2022 in setting of unstable angina, s/p PCI to OM 3 with single MAYLIN Continue Toprol at 25 mg, atorvastatin Repeat ECG in AM admitting team discussed with Dr. Read - chest pain likely 2/2 CHF but suggests addition of 324mg aspirin now 01/25 Pt on 2L of suppl. O2 via MS Cardiology consulted - cont. diuresis 40 lasix bid, start spironolactone, asa. Plan to transition to Entresto from aceinh. Plan to repeat echo 01/26 Echo obtained EF 15-20%, Compared to study last month, LV is now dilated Per cardiology - Continue IV diuretics with reduced dose of furosemide 20 mg twice daily Begin Entresto 1/2 tablet twice daily now greater than 36 hours post enalapril Continue increased dose of metoprolol succinate, spironolactone Discussed prophylactic defibrillator once hemodynamically improved 01/27 Pt had Afib RVR episode yesterday , then converted to sinus rhythm. Per cardiology - Patient responding to IV diuretics and GDMT with less respiratory distress and appropriate diuresis. Renal function essentially stable. Continue current orders Transient atrial fibrillation last evening with poor tolerance. Plan initiate amiodarone 200 mg p.o. 3 times daily. Follow daily EKG Will require pacer defibrillator as management timing dependent on clinical course 01/28 Pt is feeling much better, dyspnea resolved, pt is on RA Per cardiology - Discontinue IV furosemide - Begin furosemide 40 mg p.o. daily Continue Entresto, spironolactone Continue metoprolol succinate 25 mg twice per day Reduce amiodarone to 200 mg twice per day follow-up EKG in a.m. given QT prolongation Needs daily INR given interaction with amiodarone and warfarin Will need pacer defibrillator as part of ongoing management likely biventricular device 01/29- 01/30 Plan for ICD on 01/31/2025 decreased dose of warfarin, monitor INR DM II A1c 5.5 in December 2024 Hold home agents SSI while in-patient BSG AC HS COPD Appears compensated Completed abx and pred taper from last admission Continue Spiriva Awaiting PFT results from 01/23 H/o apical mural thrombus Noted during December 2022 monitor INR while admitted History of liver cirrhosis Follows with [facility]. No abnormalities noted on LFTs Continue diuresis as above, monitor Hypothyroidism Continue levothyroxine DVT Ppx: coumadin Code status: FULL PCP: Dr. Han Dispo: PCU Admission and Anticipated Discharge Date Admission Date: January 24, 2025 Subjective Pt seen in follow up of dyspnea, secondary to acute CHF recently hospitalized w/ RSV, hypoxia, seen by pulm. at that time Currently lying in bed in NAD, on RA, reports feeling much better overall, no chest pain, no shortness of breath no fever, chills, no abd. pain, n/v Cardiology consulted and discussed with at the bedside, following closely - started on amiodarone, plan for ICD tmrw, monitor INR notified by CM - bed bugs found in pt's home Review of Systems Review of Systems: All systems reviewed & are unremarkable except as noted in Subjective Physical Exam Physical Exam: GENERAL: Alert and oriented x3. NAD, on RA HEENT: NC/AT. Pupils equal, round and reactive to light. Oral mucosa moist. NECK: No JVD, no neck masses. HEART: S1 and S2 heard. Regular rate and rhythm. No murmur RESPIRATORY: No accessory muscle use. No wheezing ABDOMEN: Soft, bowel sounds present, nontender NEURO: awake, alert, answers appropriately, No facial asymmetry. Speech is clear. Moves extremities. EXTREMITIES: no le edema, no erythema seen. Results & Data Results & Data Vital Signs (Past 12 Hours) Vital Signs Temp Pulse Resp BP BP Pulse Ox O2 Del Method 01/30/25 07:11 36.3 C L 64 17 103/67 94 Room Air 01/30/25 02:56 36.3 C L 73 17 106/64 92 Room Air 01/29/25 22:34 36.4 C L 66 18 95/57 L 92 Room Air Laboratory Results 01/30/25 01/30/25 01/29/25 Range/Units 07:27 07:10 19:52 PT 25.4 H (9.0-12.0) Seconds INR 2.5 H (0.9-1.1) Sodium 137 (136-145) mmol/L Potassium 4.5 (3.5-5.1) mmol/L Chloride 103 (98-107) mmol/L Carbon Dioxide 29 (21-32) mmol/L Anion Gap 5 (3-11) BUN 36 H (6-23) mg/dl Creatinine 1.58 H (0.6-1.4) mg/dl Est Cr Clr Drug Dosing 41.1 ml/min eGFR 44.77 BUN/Creatinine Ratio 22.8 H (10-20) Glucose 138 H (70-99(Fasting)) mg/dl POC Glucose 155 H 91 (70-99) mg/dl Calcium 8.8 (8.6-10.3) mg/dl Phosphorus 2.9 (2.5-4.9) mg/dl Magnesium 1.9 (1.7-2.4) mg/dl 01/29/25 01/29/25 Range/Units 16:10 11:13 PT (9.0-12.0) Seconds INR (0.9-1.1) Sodium (136-145) mmol/L Potassium (3.5-5.1) mmol/L Chloride (98-107) mmol/L Carbon Dioxide (21-32) mmol/L Anion Gap (3-11) BUN (6-23) mg/dl Creatinine (0.6-1.4) mg/dl Est Cr Clr Drug Dosing ml/min eGFR BUN/Creatinine Ratio (10-20) Glucose (70-99(Fasting)) mg/dl POC Glucose 123 H 122 H (70-99) mg/dl Calcium (8.6-10.3) mg/dl Phosphorus (2.5-4.9) mg/dl Magnesium (1.7-2.4) mg/dl Medications Administered Current Inpatient Medications Acetaminophen (Acetaminophen 325 Mg Tab) 650 mg PO Q4H PRN PRN Reason: Pain or Fever Stop: 02/23/25 19:17 Last Admin: 01/26/25 21:22 Dose: 650 mg Albuterol (Albuterol Hfa 8 Gm Inhaler) 2 puffs INH Q6H PRN PRN Reason: sob/wheezing Stop: 02/23/25 19:17 Amiodarone HCl (Amiodarone 200 Mg Tab) 200 mg PO BID [facility] Stop: 02/27/25 20:59 Last Admin: 01/30/25 08:12 Dose: 200 mg Aspirin (Aspirin 81 Mg Ectab) 81 mg PO QAM [facility] Stop: 02/25/25 08:59 Last Admin: 01/30/25 08:12 Dose: 81 mg Atorvastatin Calcium (Atorvastatin 40 Mg Tab) 40 mg PO DAILY [facility] Stop: 02/24/25 08:59 Last Admin: 01/30/25 08:12 Dose: 40 mg Cyanocobalamin (Cyanocobalamin (B-12) 500 Mcg Tablet) 1,000 mcg PO DAILY [facility] Stop: 02/24/25 08:59 Last Admin: 01/30/25 08:12 Dose: 1,000 mcg Dextrose (Dextrose 50% 50 Ml Syringe) 25 - 50 ml IV UD PRN; Protocol PRN Reason: Hypoglycemia Protocol Stop: 02/23/25 18:39 Docusate Sodium (Docusate Sodium 100 Mg Cap) 100 mg PO BID PRN PRN Reason: Constipation Stop: 02/23/25 19:17 Fenofibrate (Fenofibrate Nanocrystallized 145 Mg Tablet) 145 mg PO QAM [facility] Stop: 02/24/25 08:59 Last Admin: 01/30/25 08:12 Dose: 145 mg Fluticasone/Vilanterol (Fluticasone/Vilanterol 100/25mcg 14 Puffs/Inhaler) 1 pu ffs INH DAILY [facility]; Protocol Stop: 02/24/25 08:59 Last Admin: 01/30/25 08:12 Dose: 1 puffs Furosemide (Furosemide 40 Mg Tab) 40 mg PO QAM [facility] Stop: 02/27/25 09:44 Last Admin: 01/30/25 08:13 Dose: 40 mg Glucagon (Glucagon For Inj 1 Mg Vial) 1 mg SQ UD PRN; Protocol PRN Reason: Hypoglycemia Protocol Stop: 02/23/25 18:39 Glucose (Glucose 40% Gel 15 Gm Tube) 15 - 30 gm PO UD PRN; Protocol PRN Reason: Hypoglycemia Protocol Stop: 02/23/25 18:39 Glucose (Glucose 10 Tab/Tube) 4 - 8 tab PO UD PRN; Protocol PRN Reason: Hypoglycemia Protocol Stop: 02/23/25 18:39 Guaifenesin (Guaifenesin 600 Mg Tabcr) 600 mg PO Q12 PRN PRN Reason: congestion Stop: 02/23/25 19:17 Last Admin: 01/26/25 10:16 Dose: 600 mg Insulin Aspart (Insulin Aspart Per Unit Charge) 0 units SC ACHS [facility] Stop: 02/23/25 20:59 Last Admin: 01/30/25 08:12 Dose: 3 units Levothyroxine Sodium (Levothyroxine Sodium 25 Mcg Tablet) 25 mcg PO DAILYBB [facility] Stop: 02/24/25 06:29 Last Admin: 01/30/25 05:37 Dose: 25 mcg Magnesium Oxide (Magnesium Oxide 400 Mg Tab) 400 mg PO DAILY [facility] Stop: 02/24/25 08:59 Last Admin: 01/30/25 08:13 Dose: 400 mg Metoprolol Succinate (Metoprolol Succ 25mg Ext Rel Tab) 25 mg PO BID [facility] Stop: 02/24/25 20:59 Last Admin: 01/30/25 08:13 Dose: 25 mg Miscellaneous (Carbohydrates For Hypoglycemia ) 15 - 30 gm PO UD PRN PRN Reason: Hypoglycemia Protocol Stop: 02/23/25 18:39 Nitroglycerin (Nitroglycerin Sl 0.4 Mg/Tab Tab) 0.4 mg SL Q5M PRN PRN Reason: Chest Pain Stop: 02/23/25 18:00 Last Admin: 01/24/25 18:12 Dose: 0.4 mg Pantoprazole Sodium (Pantoprazole 40 Mg Tab) 40 mg PO QAM [facility] Stop: 02/24/25 08:59 Last Admin: 01/30/25 08:13 Dose: 40 mg Polyethylene Glycol (Polyethylene (Miralax) 17 Gm Pack) 17 gm PO DAILY PRN PRN Reason: Constipation Stop: 02/23/25 19:17 Sacubitril/Valsartan (Valsartan/Sacubitril 26/24mg Tab) 0.5 tab PO BID [facility] Stop: 02/25/25 12:29 Last Admin: 01/30/25 08:13 Dose: 0.5 tab Spironolactone (Spironolactone 12.5 Mg Tab) 12.5 mg PO DAILY [facility] Stop: 02/25/25 08:59 Last Admin: 01/30/25 08:13 Dose: 12.5 mg Trazodone HCl (Trazodone Hcl 50 Mg Tab) 50 mg PO HS PRN PRN Reason: Sleep Stop: 02/23/25 19:17 Last Admin: 01/29/25 20:02 Dose: 50 mg Warfarin Sodium (Warfarin Sod 3 Mg Tab) 3 mg PO Q2D@1600 [facility] Stop: 02/24/25 15:59 Last Admin: 01/27/25 17:14 Dose: 3 mg Warfarin Sodium (Warfarin Sod 3 Mg Tab) 6 mg PO Q2D@1600 [facility] Stop: 02/25/25 15:59 Last Admin: 01/28/25 17:12 Dose: 6 mg (3) CAD (coronary artery disease) Coronary Disease-Associated Artery/Lesion type: [place] artery [place] vs. transplanted heart: [place] heart Associated angina: without angina Qualified Code(s): I25.10 - Atherosclerotic heart disease of [place] coronary artery without angina pectoris
--- NOTE | 2025-01-30 11:24 | Cardiology Progress Note ---
Date of Service January 30, 2025 Assessment & Plan (1) Acute on chronic systolic heart failure: (2) CAD (coronary artery disease): (3) MARC (dyspnea on exertion): (4) Paroxysmal atrial fibrillation: Plan 79-year-old male with complex past history including ischemic cardiomyopathy remote coronary bypass grafting and coronary inventions recently hospitalized for acute hypoxic respiratory failure RSV infection. Presents now with worsening dyspnea and fatigue signs and symptoms of likely acute on chronic systolic heart failure with decline in ejection fraction to the range of 15-20%, IVCD, intermittent left bundle branch block, QRS duration 142 ms Plan: Furosemide 40 mg daily Continue Entresto, spironolactone Continue metoprolol succinate 25 mg twice per day Continue amiodarone 200 mg twice per day Needs daily INR given interaction with amiodarone and warfarin INR 2.5 on 01/30. Hold coumadin and give vitamin K rich snack. Biventricular pm defibrillator planned for am of 01/31, need INR of 1.5-2 for the procedure. Admission and Anticipated Discharge Date Admission Date: January 24, 2025 Subjective Patient seen in follow up. Feeling well. No orthopnea. Has yet to ambulate in the unit. Telemetry reveals SR in 60s with occasional PVCs. Physical Exam Constitutional: no acute distress Eyes: PERRL, conjunctivae normal, anicteric sclerae ENMT: external ear and nose normal, oropharynx normal Neck: trachea midline, no thyromegaly Respiratory: Auscultation: + diminished lung sounds and + crackles; no wheezes Cardiovascular: Rate/Rhythm: regular rate and regular rhythm Extremities: no pedal edema Gastrointestinal (Abdomen): normal bowel sounds, soft, nontender, no hepatosplenomegaly Inspection/Auscultation: + abdomen distended Musculoskeletal: no cyanosis or clubbing, extremities motor strength 5/5 Neurologic: PERRL, EOMI, accommodation nl, no face palsy, no dysarthria Psychiatric: A+Ox3, euthymic affect Results & Data Vital Signs (Past 12 Hours) Vital Signs Temp Pulse Resp BP BP Pulse Ox O2 Del Method 01/30/25 07:11 36.3 C L 64 17 103/67 94 Room Air 01/30/25 02:56 36.3 C L 73 17 106/64 92 Room Air Laboratory Results Coagulation 01/30/25 Range/Units 07:27 PT 25.4 H (9.0-12.0) Seconds Comprehensive Metabolic Panel 01/30/25 Range/Units 07:27 Sodium 137 (136-145) mmol/L Potassium 4.5 (3.5-5.1) mmol/L Chloride 103 (98-107) mmol/L Carbon Dioxide 29 (21-32) mmol/L BUN 36 H (6-23) mg/dl Creatinine 1.58 H (0.6-1.4) mg/dl Glucose 138 H (70-99(Fasting)) mg/dl Calcium 8.8 (8.6-10.3) mg/dl Intake and Output 01/29/25 01/30/25 01/30/25 22:59 06:59 14:59 Output Total 250 / 805 350 / 805 Balance -250 / 95 -350 / 95 Output: Urine 250 / 803 350 / 803 Other: Weight 86.183 kg Weight Measurement Method Built in [facility] (2) CAD (coronary artery disease) Coronary Disease-Associated Artery/Lesion type: [place] artery [place] vs. transplanted heart: [place] heart Associated angina: without angina Qualified Code(s): I25.10 - Atherosclerotic heart disease of [place] coronary artery without angina pectoris
--- NOTE | 2025-01-30 11:47 | Electrocardiogram Report ---
Test Reason : Blood Pressure : */* mmHG Vent. Rate : 65 BPM Atrial Rate : 65 BPM P-R Int : 186 ms QRS Dur : 154 ms QT Int : 474 ms P-R-T Axes : 51 -52 131 degrees QTcB Int : 492 ms Normal sinus rhythm Left axis deviation Left bundle branch block Abnormal ECG When compared with ECG of 29-Jan-2025 12:53, Left bundle branch block is now Present Confirmed by Williams Baumann ([id number] on 01/30/2025 11:46:49 AM Referred By: REFERRED SELF Confirmed By: Williams Baumann
[2025-01-31 04:17] LABS: Hematocrit (blood only) 36.4 % (42.0-52.0); Hemoglobin 12.2 g/dl (14.0-18.0); Mean Corpuscular Hemoglobin 29.5 pg (25.0-34.0); Mean Corpuscular Hgb Conc 33.5 g/dL (32.0-36.0); Mean Corpuscular Volume 87.9 fL (80.0-100.0); Mean Platelet Volume 11.8 fL (9.4-12.4); Platelet Count 203 K/uL (130-400); RDW Coefficient of Variation 14.2 % (11.5-14.5); RDW Standard Deviation 45.3 fL (36.4-46.3); Red Blood Count 4.14 M/uL (4.70-6.10); White Blood Count 5.27 K/ul (4.8-10.8)
[2025-01-31 04:33] LABS: Calcium 8.5 mg/dl (8.6-10.3); Magnesium 1.7 mg/dl (1.7-2.4); Potassium 4.1 mmol/L (3.5-5.1)
[2025-01-31 04:35] LABS: INR 2.3 (0.9-1.1); Prothrombin Time 23.1 Seconds (9.0-12.0)
[2025-01-31 04:38] LABS: Creatinine Clr Calc Pharmacy 40.8 ml/min
[2025-01-31] MEDS: MAGNESIUM SULFATE / D5W 1 GM/100 ML BAG IV ONE (05:41)
--- NOTE | 2025-01-31 07:46 | History & Physical Bridge Note ---
Date of Service January 31, 2025 History & Physical Bridge Note I have examined the patient, reviewed the History & Physical and in the interval since the performance of the History & Physical I have noted the following changes of clinical significance: patient with mixed ICM and NICM as well as Chronic heart failure with reduced EF-NYHA class III, LBBB and NSVT on telemetry; recommended a BiV ICD prior to hospital discharge. I discussed the procedure and potential risks; he expressed an understanding; consents signed.
--- NOTE | 2025-01-31 07:46 | Pre Anesthesia Assessment ---
Date of Service January 31, 2025 Pre Sedation Assessment Vital Signs Temp Pulse Pulse Resp BP BP Pulse Ox 01/31/25 07:28 60 16 107/72 93 01/31/25 03:21 36.4 C 57 L 18 103/65 96 01/31/25 00:00 72 01/30/25 22:52 36.3 C L 67 20 100/64 92 01/30/25 19:54 36.8 C 85 18 110/73 94 01/30/25 19:00 01/30/25 15:47 36.4 C L 70 18 111/63 95 Pulse Ox O2 Del Method O2 Del Method 01/31/25 07:28 Room Air 01/31/25 03:21 Room Air 01/31/25 00:00 01/30/25 22:52 Room Air 01/30/25 19:54 Room Air 01/30/25 19:00 94 Room Air 01/30/25 15:47 Room Air Cardiovascular RRR, no murmur, no edema Respiratory normal respiratory effort, lungs clear to auscultation Pre-Sedation Airway Assessment Smoking Status: Former smoker Short, Thick Neck: Yes Thyromental Distance: > or= 3.5 Finger Breadths Oral Cavity: + WNL Mallampati Class: III ASA: ASA3 NPO Status Date of Last Intake of Fluids: 01/30/25 Time of Last Intake of Fluids: 23:00 Date of Last Intake of Solid Food: 01/30/25 Time of Last Intake of Solid Foods: 23:00 Procedure Planning Contraindications for Sedation: none Current Medications Reviewed: Yes Notes The planned sedation has been discussed with the patient. Informed Consent was obtained. I have identified the patient, determined the appropriateness of sedation and have assessed the patient immediately prior to the procedure. All medicine(s) and interventions are by my order.
[2025-01-31] MEDS: WATER, STERILE FOR INJ 10 ML VIAL ONE (09:56)
[2025-01-31] MEDS: VANCOMYCIN HCL 1000MG/20ML VIAL ONE (09:56)
[2025-01-31] MEDS: BUPIVACAINE 0.25% PF 30 ML VIAL ONE (09:56)
[2025-01-31] MEDS: LIDOCAINE 1% LOCAL 20 ML VIAL ONE (09:56)
[2025-01-31] MEDS: fentaNYL citrate PF 100 MCG/2 ML VIAL ONE (09:57)
[2025-01-31] MEDS: MIDAZOLAM HCL 5 MG/ML 1 ML VIAL ONE (09:57)
[2025-01-31] MEDS: ceFAZolin 330 MG/ML 1 GM VIAL ONE (09:57)
[2025-01-31] MEDS: ONDANSETRON INJ 2 MG/ML 2 ML VIAL ONE (09:58)
--- NOTE | 2025-01-31 10:20 | Post Anesthesia Assessment ---
Date of Service January 31, 2025 Post Sedation Assessment Vital Signs Temp Pulse Pulse Resp BP BP Pulse Ox 01/31/25 07:28 60 16 107/72 93 01/31/25 03:21 36.4 C 57 L 18 103/65 96 01/31/25 00:00 72 01/30/25 22:52 36.3 C L 67 20 100/64 92 01/30/25 19:54 36.8 C 85 18 110/73 94 01/30/25 19:00 01/30/25 15:47 36.4 C L 70 18 111/63 95 Pulse Ox O2 Del Method O2 Del Method 01/31/25 07:28 Room Air 01/31/25 03:21 Room Air 01/31/25 00:00 01/30/25 22:52 Room Air 01/30/25 19:54 Room Air 01/30/25 19:00 94 Room Air 01/30/25 15:47 Room Air Discharge Sedation Level of Care: Fast Track Phase II Post Sedation Plan On clinical assessment, the patient appears to have tolerated the sedation without complications. Patient is recovering as anticipated. Patient will continue to be monitored by nursing and may be discharged when sedation discharge criteria are met per below protocol. Upon Completions of procedure up to 15 minutes continue every 5 minute vital signs and the P.A.R. score; then discharge to a Phase I or Fast Track to Phase II per the following guidelines: * Discharge Patient to appropriate Phase II area if PAR is 8 or greater or return to pre- procedure baseline. The post - procedure orders will be as directed. * If PAR score is less than 8 or not return to pre-procedure baseline then patient will follow Phase I monitoring till PAR is reached for Phase II. The Phase I may be done in procedure room or may call to secure a Phase I area. * If naloxone or flumazenil are used for reversal, hold in Phase I for continued monitoring from when last reversal dose was given for a minimum of 60 minutes or longer pending the nurse and/or physician discretion of patient condition before discharge to Phase II. Please call the Sedation Physician to re-evaluate and complete post-note for discharge to Phase II area. Do NOT discharge from procedure sedation or Phase 1 until post- sedation evaluation note is complete by procedure /sedation MD Sedation Discharge Instructions to be given to the patient at discharge to home.
--- NOTE | 2025-01-31 11:35 | Hospitalist Progress Note ---
Date of Service January 31, 2025 Assessment & Plan (1) Heart failure, systolic, with acute decompensation: (2) Hypomagnesemia: (3) CAD (coronary artery disease): (4) HTN (hypertension): (5) Hyperlipidemia: (6) COPD (chronic obstructive pulmonary disease): (7) History of tobacco abuse: (8) Cirrhosis of liver: (9) Hypothyroidism: (10) Apical mural thrombus: Plan This is a 79-year-old male with PMH of CAD, DM II, history of apical mural thrombus on coumadin, HTN, history of cirrhosis of liver, hypothyroidism, hyperlipidemia, polyneuropathy, history of CVA, B12 deficiency, acquired cyst of kidney, BPH, cervical spondylosis, depression, primary insomnia who presents for progressively worsening shortness of breath x 5 days and was found to have decompensated systolic heart failure. Acute decompensated systolic heart failure Elevated troponin, CAD Recently admitted for RSV bronchiolitis, had echo during admission that showed reduced EF of revealed newly reduced EF of 25-30% (from 40%) with moderate- severe LV hypokinesis [place] better on discharge but has progressive dyspnea on exertion x 5 days Given 20mg IV Lasix in ED and placed on bipap due to work of breathing, no documented hypoxia CXR with stable exam; chronic cardiomegaly and pulmonary vascular congestion in a patient has had prior coronary artery bypass surgery and a left shoulder joint replacement BNP 1090, troponin 39 ECG with sinus rhythm with frequent PVCs, LAD, nonspecific intraventricular conduction block similar to previous Echo obtained Strict I&Os, daily weights Cardiology consulted -s/p ICD placement on 01/31 -continue lasix, entresto, spironolactone, Toprol, amiodarone, warfarin at decreased dose Continue to monitor Hypomagnesemia replete as needed DM II A1c 5.5 in December 2024 Hold home agents SSI while in-patient BSG AC HS COPD Appears compensated Completed abx and pred taper from last admission Continue Spiriva Awaiting PFT results from 4/8 H/o apical mural thrombus Noted during December 2022 monitor INR while admitted History of liver cirrhosis Follows with [facility]. No abnormalities noted on LFTs Continue diuresis as above, monitor Hypothyroidism Continue levothyroxine DVT Ppx: coumadin Code status: FULL PCP: Dr. Han Dispo: PCU Admission and Anticipated Discharge Date Admission Date: January 24, 2025 Subjective Pt was seen postop, resting comfortably in bed Denied acute concerns Noted no pain at the time No chest pain or SOB Review of Systems Review of Systems: All systems reviewed & are unremarkable except as noted in Subjective Physical Exam Physical Exam: General: Alert, oriented. No acute distress Neuro: No gross deficits HEENT: NC/AT CV: RRR Resp: Breath sounds clear bilaterally, no increased effort of breathing Abdomen:Soft, nontender Extremities: No edema in lower extremities bilaterally. Results & Data Results & Data Vital Signs (Past 12 Hours) Vital Signs Temp Pulse Pulse Resp BP Pulse Ox O2 Del Method 01/31/25 11:15 36.4 C L 66 19 105/68 94 Room Air 01/31/25 10:40 60 16 95/67 L 93 Room Air 01/31/25 10:26 60 16 109/68 93 Room Air 01/31/25 07:28 60 16 107/72 93 Room Air 01/31/25 03:21 36.4 C 57 L 18 103/65 96 Room Air 01/31/25 00:00 72 (3) CAD (coronary artery disease) Associated angina: without angina Coronary Disease-Associated Artery/Lesion type: [place] artery [place] vs. transplanted heart: [place] heart Qualified Code(s): I25.10 - Atherosclerotic heart disease of [place] coronary artery without angina pectoris
--- NOTE | 2025-01-31 12:51 | XRay Report ---
XR chest 1V portable CLINICAL HISTORY: s/p biv icd ensure no PTX COMPARISON STUDY: 01/24/2025 FINDINGS: Stable CABG. There is an interval left-sided pacemaker/ICD. Stable cardiomegaly without pul monary vascular congestion. No effusion, consolidation, or pneumothorax. IMPRESSION: No pneumothorax seen. ACT 112: Negative or not required by law. Electronically signed by: Carlito Lopez M.D. 01/31/2025 12:49 PM
--- NOTE | 2025-01-31 15:40 | Cardiology Progress Note ---
Date of Service January 31, 2025 Assessment & Plan (1) Acute on chronic systolic heart failure: (2) CAD (coronary artery disease): (3) MARC (dyspnea on exertion): (4) Paroxysmal atrial fibrillation: Plan 79-year-old male with complex past history including ischemic cardiomyopathy remote coronary bypass grafting and coronary inventions recently hospitalized for acute hypoxic respiratory failure RSV infection. Presents now with worsening dyspnea and fatigue signs and symptoms of likely acute on chronic systolic heart failure with decline in ejection fraction to the range of 15-20%, IVCD, intermittent left bundle branch block, QRS duration 142 ms Patient underwent implantation of [employer] dual-chamber pacemaker AICD 01/30/2025. Just postprocedure EKG reveals sinus rhythm with atrial sensed and ventricular paced QRS complexes at 64 bpm. Plan: Furosemide 40 mg daily Continue Entresto, spironolactone Continue metoprolol succinate 25 mg twice per day Resume amiodarone 200 mg twice per day Needs daily INR given interaction with amiodarone and warfarin INR 2.3 on 01/31/2025. Coumadin had been held on 01/30.Resume Coumadin, low-dose today 1.25 mg x 1. Resume amiodarone. Check on INR tomorrow. Post procedure AICD interrogation with stable findings. Patient to remain in hospital today for further observation. If stable findings tomorrow, discharge then. Admission and Anticipated Discharge Date Admission Date: January 24, 2025 Subjective Patient seen in general cardiology follow-up status post implantation of left subclavian biventricular pacemaker AICD. Patient tolerated the procedure well. Postprocedure pain well-controlled at present. Chest x-ray performed at 1230 reveals appropriate lead placement and no pneumothorax. Physical Exam Constitutional: no acute distress Eyes: PERRL, conjunctivae normal, anicteric sclerae ENMT: external ear and nose normal, oropharynx normal Neck: trachea midline, no thyromegaly Respiratory: Auscultation: + diminished lung sounds and + crackles; no wheezes Cardiovascular: Rate/Rhythm: regular rate and regular rhythm Vessels: + JVD Extremities: no pedal edema Chest (Breasts): Additional Comments: Left infraclavicular pocket with dressing, mild serosanguineous drainage noted on dressing. No obvious hematoma. Gastrointestinal (Abdomen): normal bowel sounds, soft, nontender, no hepatosplenomegaly Inspection/Auscultation: + abdomen distended Musculoskeletal: no cyanosis or clubbing, extremities motor strength 5/5 Neurologic: PERRL, EOMI, accommodation nl, no face palsy, no dysarthria Psychiatric: A+Ox3, euthymic affect Results & Data Vital Signs (Past 12 Hours) Vital Signs Temp Pulse Resp BP Pulse Ox O2 Del Method 01/31/25 15:23 36.5 C 69 19 108/68 92 Room Air 01/31/25 11:46 Room Air 01/31/25 11:15 36.4 C L 66 19 105/68 94 Room Air 01/31/25 10:40 60 16 95/67 L 93 Room Air 01/31/25 10:26 60 16 109/68 93 Room Air 01/31/25 07:28 60 16 107/72 93 Room Air (2) CAD (coronary artery disease) Coronary Disease-Associated Artery/Lesion type: [place] artery [place] vs. transplanted heart: ruby heart Associated angina: without angina Qualified Code(s): I25.10 - Atherosclerotic heart disease of ruby coronary artery without angina pectoris
[2025-01-31] MEDS: WARFARIN SOD 1.25 MG TAB PO ONE (16:10)
--- NOTE | 2025-01-31 18:17 | Electrocardiogram Report ---
Test Reason : Blood Pressure : */* mmHG Vent. Rate : 64 BPM Atrial Rate : 64 BPM P-R Int : 106 ms QRS Dur : 186 ms QT Int : 516 ms P-R-T Axes : -16 -35 141 degrees QTcB Int : 532 ms Atrial-sensed ventricular-paced rhythm Abnormal ECG When compared with ECG of 30-Jan-2025 06:03, Electronic ventricular pacemaker has replaced Sinus rhythm Confirmed by Williams Baumann ([id number]) on 01/31/2025 6:17:07 PM Referred By: REFERRED SELF Confirmed By: Williams Baumann
[2025-02-01 07:22] LABS: Basophils # (auto) 0.09 K/uL (0.00-0.20); Basophils % (auto) 1.4 %; Eosinophils # (auto) 0.16 K/uL (0.00-0.50); Eosinophils % (auto) 2.5 %; Hematocrit (blood only) 37.7 % (42.0-52.0); Hemoglobin 12.6 g/dl (14.0-18.0); Immature Granulocytes # (auto) 0.03 K/uL (0.01-0.20); Immature Granulocytes % (auto) 0.5 %; Lymphocytes # (auto) 1.06 K/uL (1.20-3.40); Lymphocytes % (auto) 16.9 %; Mean Corpuscular Hemoglobin 29.8 pg (25.0-34.0); Mean Corpuscular Hgb Conc 33.4 g/dL (32.0-36.0); Mean Corpuscular Volume 89.1 fL (80.0-100.0); Mean Platelet Volume 11.8 fL (9.4-12.4); Monocytes % (auto) 9.5 %; Neutrophils # (auto) 4.35 K/uL (1.40-6.50); Neutrophils % (auto) 69.2 %; Platelet Count 182 K/uL (130-400); RDW Coefficient of Variation 14.1 % (11.5-14.5); RDW Standard Deviation 45.3 fL (36.4-46.3); Red Blood Count 4.23 M/uL (4.70-6.10); White Blood Count 6.29 K/ul (4.8-10.8)
[2025-02-01 07:32] LABS: INR 2.1 (0.9-1.1); Prothrombin Time 21.4 Seconds (9.0-12.0)
[2025-02-01 07:55] VITALS: RESP 18
[2025-02-01 08:27] LABS: Calcium 8.8 mg/dl (8.6-10.3); Magnesium 1.9 mg/dl (1.7-2.4); Potassium 4.6 mmol/L (3.5-5.1)
[2025-02-01 08:33] LABS: Creatinine Clr Calc Pharmacy 45.8 ml/min
[2025-02-01 11:11] VITALS: TEMP 97.5; O2SAT 93
--- NOTE | 2025-02-01 12:34 | Cardiology Progress Note ---
Date of Service February 01, 2025 Assessment & Plan (1) Acute on chronic systolic heart failure: (2) CAD (coronary artery disease): (3) MARC (dyspnea on exertion): (4) Paroxysmal atrial fibrillation: Plan 79-year-old male with complex past history including ischemic cardiomyopathy remote coronary bypass grafting and coronary inventions recently hospitalized for acute hypoxic respiratory failure RSV infection. Presents now with worsening dyspnea and fatigue signs and symptoms of likely acute on chronic systolic heart failure with decline in ejection fraction to the range of 15-20%, IVCD, intermittent left bundle branch block, QRS duration 142 ms Patient underwent implantation of [place] dual-chamber pacemaker AICD 01/30/2025. Postprocedure EKG performed 01/31/25:sinus rhythm with atrial sensed and ventricular paced QRS complexes at 64 bpm. Plan: Patient stable for discharge on the following medications: Amiodarone 200 mg 1 time per day. Reduce home Coumadin dose from 3 mg daily alternating with 6 mg daily to 3 mg a day given treatment with amiodarone and Tricor, goal INR of 23 will need follow-up with the anticoagulation clinic.. Aspirin 81 mg by mouth daily Entresto 26/24 mg, 1/2 tablet by mouth 2 times per day Spironolactone 25 mg, 1/2 tablet by mouth daily Metoprolol succinate 25 mg twice daily Furosemide 40 mg by mouth daily Tricor 145 mg by mouth daily Atorvastatin 40 mg by mouth daily Outpatient cardiology follow-up already arranged for 02/13/2025. Will also arrange wound check, pacemaker clinic visit to take place in 7 to 10 days. Post AICD wound care instructions already placed on the patient's discharge document by Dr. Lares Admission and Anticipated Discharge Date Admission Date: January 24, 2025 Subjective Patient seen in cardiology follow-up. Notes feeling well. Denies any orthopnea, lightheadedness or dizziness. He has mild postprocedural pain and is left subclavian AICD site which was controlled with Tylenol overnight. Telemetry reveals sinus rhythm with AV sequential pacing in the 70s. No additional atrial fibrillation, and the premature ventricular contraction burden appears to have improved. Physical Exam Constitutional: no acute distress Eyes: PERRL, conjunctivae normal, anicteric sclerae ENMT: external ear and nose normal, oropharynx normal Neck: trachea midline, no thyromegaly Respiratory: Auscultation: + diminished lung sounds and + crackles; no wheezes Cardiovascular: Rate/Rhythm: regular rate and regular rhythm Vessels: + JVD Extremities: no pedal edema Gastrointestinal (Abdomen): normal bowel sounds, soft, nontender, no hepatosplenomegaly Inspection/Auscultation: + abdomen distended Musculoskeletal: no cyanosis or clubbing, extremities motor strength 5/5 Neurologic: PERRL, EOMI, accommodation nl, no face palsy, no dysarthria Psychiatric: A+Ox3, euthymic affect Results & Data Vital Signs (Past 12 Hours) Vital Signs Temp Pulse Resp BP BP Pulse Ox O2 Del Method 02/01/25 11:10 36.4 C L 70 18 109/74 93 Room Air 02/01/25 07:55 36.6 C 64 18 99/58 L 94 Room Air 02/01/25 03:00 36.7 C 61 16 96/60 L 96 Room Air Laboratory Results Coagulation 02/01/25 Range/Units 06:55 PT 21.4 H (9.0-12.0) Seconds CBC 02/01/25 Range/Units 06:55 WBC 6.29 (4.8-10.8) K/ul RBC 4.23 L (4.70-6.10) M/uL Hgb 12.6 L (14.0-18.0) g/dl Hct 37.7 L (42.0-52.0) % Plt Count 182 (130-400) K/uL Neut # (Auto) 4.35 (1.40-6.50) K/uL Lymph # (Auto) 1.06 L (1.20-3.40) K/uL [place] # (Auto) 0.60 H (0.11-0.59) K/uL Eos # (Auto) 0.16 (0.00-0.50) K/uL Baso # (Auto) 0.09 (0.00-0.20) K/uL Comprehensive Metabolic Panel 02/01/25 Range/Units 06:55 Sodium 138 (136-145) mmol/L Potassium 4.6 (3.5-5.1) mmol/L Chloride 103 (98-107) mmol/L Carbon Dioxide 28 (21-32) mmol/L BUN 32 H (6-23) mg/dl Creatinine 1.39 (0.6-1.4) mg/dl Glucose 131 H (70-99(Fasting)) mg/dl Calcium 8.8 (8.6-10.3) mg/dl Intake and Output 01/31/25 02/01/25 02/01/25 22:59 06:59 14:59 Intake Total 300 / 880 Output Total 950 / 1950 500 / 1950 Balance -650 / -1070 -500 / -1070 Intake: Oral 300 / 780 Output: Urine 950 / 1950 500 / 1950 Other: Weight 82.752 kg Weight Measurement Method Built in [facility] (2) CAD (coronary artery disease) Associated angina: without angina Coronary Disease-Associated Artery/Lesion type: [place] artery [place] vs. transplanted heart: [place] heart Qualified Code(s): I25.10 - Atherosclerotic heart disease of [place] coronary artery without angina pectoris
--- NOTE | 2025-02-01 14:34 | Discharge Summary ---
Discharge Summary Date of Service February 01, 2025 Principal Dx & Hospital Course #1 = Principal Diagnosis (1) Heart failure, systolic, with acute decompensation: (2) Hypomagnesemia: (3) CAD (coronary artery disease): (4) HTN (hypertension): (5) Hyperlipidemia: (6) COPD (chronic obstructive pulmonary disease): (7) History of tobacco abuse: (8) Cirrhosis of liver: (9) Hypothyroidism: (10) Apical mural thrombus: Plan This is a 79-year-old male with PMH of CAD, DM II, history of apical mural thrombus on coumadin, HTN, history of cirrhosis of liver, hypothyroidism, hyperlipidemia, polyneuropathy, history of CVA, B12 deficiency, acquired cyst of kidney, BPH, cervical spondylosis, depression, primary insomnia who presents for progressively worsening shortness of breath x 5 days and was found to have decompensated systolic heart failure. Acute decompensated systolic heart failure Elevated troponin, CAD Recently admitted for RSV bronchiolitis, had echo during admission that revealed newly reduced EF of 25-30% (from 40%) with moderate-severe LV hypokinesis [place] better on discharge but had progressive dyspnea on exertion x 5 days Given 20mg IV Lasix in ED and placed on bipap due to work of breathing, no documented hypoxia CXR with stable exam; chronic cardiomegaly and pulmonary vascular congestion in a patient who has had prior coronary artery bypass surgery and a left shoulder joint replacement BNP 1090, troponin 39, peaked at 54 before downtrending ECG with sinus rhythm with frequent PVCs, LAD, nonspecific intraventricular conduction block similar to previous Echo repeated with noted EF of 15-20%, severe global hypokinesis and Grade III diastolic dysfunction Strict I&Os, daily weights Cardiology consulted -s/p ICD placement on 01/31 -will need followup with EP (wound check, pacemaker clinic visit to take place in 7 to 10 days after discharge), General Cardiology(scheduled for February 13) and the anticoagulation clinic after discharge (PCP to ensure followup) -Discharge medication changes per Cardiology: Amiodarone 200mg daily Warfarin 3mg daily Aspirin 81mg by mouth daily Entresto 26/24 mg, half tablet by mouth 2 times per day Spironolactone 25 mg, half tablet by mouth daily Metoprolol succinate 25 mg twice daily Furosemide 40 mg by mouth daily Tricor/fenofibrate 145 mg by mouth daily Atorvastatin 40 mg by mouth daily Close PCP, anticoag clinic and cardiology followup as noted above Hypomagnesemia replete as needed DM II A1c 5.5 in December 2024 Hold home agents SSI while in-patient Resume home agents on discharge COPD Appears compensated Completed abx and pred taper from last admission Continue Spiriva Awaiting PFT results from 4/8 H/o apical mural thrombus Noted during December 2022 monitor INR while admitted INR 2.1 on discharge History of liver cirrhosis Follows with [facility]. No abnormalities noted on LFTs Continue diuresis as above, monitor Hypothyroidism Continue levothyroxine Mood Continue home trazodone Celexa discontinued while hospitalized in the setting of cardiac medical problems listed above PCP and psychiatry followup after discharge Notes For Next Care Provider Please ensure close follow up with the anticoagulation clinic Please ensure close followup with EP and general cardiology Please follow up on mood, consider psychiatry consult for med alternatives Medication Changes From Visit Amiodarone 200mg daily Warfarin 3mg daily Aspirin 81mg by mouth daily Entresto 26/24 mg, half tablet by mouth 2 times per day Spironolactone 25 mg, half tablet by mouth daily Metoprolol succinate 25 mg twice daily Furosemide 40 mg by mouth daily Tricor/fenofibrate 145 mg by mouth daily Atorvastatin 40 mg by mouth daily Discontinue: Celexa Admission HPI Per Admitting Provider This is a 79-year-old male with PMH of CAD, DM II, history of apical mural thrombus on coumadin, HTN, history of cirrhosis of liver, hypothyroidism, hyperlipidemia, polyneuropathy, history of CVA, B12 deficiency, acquired cyst of kidney, BPH, cervical spondylosis, depression, primary insomnia who presents for progressively worsening shortness of breath x 5 days. Patient was recently a dmitted to our service from 12/28- with acute hypoxic respiratory failure in setting of RSV and COPD exacerbation. CTA of chest also with small layering bilateral pleural effusions. Was treated with Duonebs, abx and prednisone as well as gentle diuresis with 20mg IV lasix daily. Was seen by pulm and discharged home on Symbicort and prednisone taper. During admission, 2D echo revealed newly reduced EF of 25-30% with moderate-severe LV hypokinesis. Was instructed to follow-up with cardiology in clinic. Followed up with Dr. Han on 01/09/25 and was notably lightheaded and dizzy. Enalapril held and Toprol reduced to 25mg daily with instruction to monitor BP at home and follow up with cards. Feels less lightheaded since BP medications reduced but continues to feel fatigued and with worsening dyspnea on exertion. states he is sleeping a lot. First noted it walking around his house but now experiencing evening getting to bathroom. SOB laying down so has been sitting up to sleep. Not on O2 at home. Denies any chest pressure now but endorsing intermittent chest and back over the past week in setting of MARC that has been more constant today. Vomited this AM x 1. Scheduled to see cardiology in clinic 02/13/25 but did not feel he could wait that long and came to ED for further evaluation. Compliant with medications at home but due for evening coumadin. Denies any increased fluid in take or dietary changes in the past week. No lower extremity swelling but abdomen more distended than baseline. No F/C, congestion, palpitations, wheezing, abd pain, dysuria, diarrhea or constipation. Admission Exam Per Admitting Provider General Appearance: WD/WN, vitals as above, NAD, sitting up in bed, appears ill, wearing bipap mask Head: normocephalic, atraumatic Eyes: normal inspection, PERRL, conjunctivae normal, anicteric sclerae ENT: external ear and nose normal, +bipap mask Neck: normal visual inspection, trachea midline, no thyromegaly Respiratory: increased respiratory effort, + bibasilar rales, no wheezing Cardiovascular: tachycardic rate, regular rhythm,normal peripheral pulses, trace BLE edema Chest: normal inspection of chest Abdomen/GI: distended but non-tender, reducible ventral hernia, normal bowel sounds, no hepatosplenomegaly Extremities/Musculoskeletal: no cyanosis or clubbing, extremities motor strength 5/5 Neurologic: PERRL, EOMI, accommodation nl, no face palsy, no dysarthria, CN's II-XI intact bilaterally and moves all extremities Psychiatric: A+Ox3, euthymic affect Skin: no rashes, normal color, warm/dry Discharge Exam General: Alert, oriented. No acute distress Neuro: No gross deficits HEENT: NC/AT CV: RRR Resp: Breath sounds clear bilaterally, no increased effort of breathing Abdomen:Soft, nontender Extremities: No edema in lower extremities bilaterally. Updated Medication List Medication Instructions Recorded Confirmed Type atorvastatin 40 mg tablet (Lipitor) 40 mg PO DAILY 12/18/20 02/01/25 History levothyroxine 25 mcg capsule 25 mcg PO QAM 12/18/20 01/24/25 History cyanocobalamin (vitamin B-12) 1,000 mcg PO DAILY 09/23/21 01/24/25 History 1,000 mcg tablet sildenafil 100 mg tablet (Viagra) 100 mg PO UD PRN Erectile 09/23/21 01/24/25 History Dysfunction pantoprazole 40 mg tablet,delayed 40 mg PO QAM #30 tabs 09/24/21 01/24/25 Rx release acetaminophen 325 mg tablet 650 mg (2 x 325 mg) PO Q6H PRN 01/12/22 01/24/25 Rx fever or pain #60 tabs psyllium husk 0.4 gram capsule 0.4 g PO DAILY #30 caps 01/12/22 01/24/25 Rx (Fiber (psyllium husk)) docusate sodium 100 mg capsule 100 mg PO BID PRN Constipation 12/31/22 01/24/25 History trazodone 50 mg tablet 50 mg PO HS PRN Sleep 12/31/22 01/24/25 History albuterol sulfate 90 mcg/actuation 2 puff inhalation Q6H PRN 12/28/24 01/24/25 History aerosol inhaler sob/wheezing ondansetron HCl 4 mg tablet 4 mg PO Q8H PRN Nausea And Vomiting 12/28/24 01/24/25 History guaifenesin 600 mg tablet, 600 mg PO Q12 #14 tabs 01/01/25 01/24/25 Rx extended release 12 hr (Mucinex) magnesium oxide 400 mg (241.3 mg 400 mg PO DAILY #5 tabs 01/01/25 01/24/25 Rx magnesium) tablet budesonide-formoterol HFA 160 2 puff inhalation BID 01/24/25 02/01/25 History mcg-4.5 mcg/actuation aerosol inhaler (Symbicort) semaglutide 0.25 mg or 0.5 mg (2 0.5 mg subcut WK 01/24/25 01/24/25 History mg/3 mL) subcutaneous pen injector (Ozempic) amiodarone 200 mg tablet 200 mg PO DAILY #30 tabs 02/01/25 Rx aspirin 81 mg tablet,delayed 81 mg PO QAM #30 tabs 02/01/25 Rx release fenofibrate nanocrystallized 145 145 mg PO QAM #30 tabs 02/01/25 Rx mg tablet furosemide 40 mg tablet 40 mg PO QAM #30 tabs 02/01/25 Rx metoprolol succinate 25 mg 25 mg PO BID #60 tabs 02/01/25 Rx tablet,extended release 24 hr sacubitril 24 mg-valsartan 26 mg 0.5 tab PO BID #15 tabs 02/01/25 Rx tablet (Entresto) spironolactone 25 mg tablet 12.5 mg (1/2 x 25 mg) PO DAILY #15 02/01/25 Rx tabs warfarin 3 mg tablet 3 mg PO DAILY@1600 #30 tabs 02/01/25 Rx Hospital Stay Data Consultations 01/24/25 16:00 ED Decision to Admit Stat 01/24/25 17:39 Consult Cardiology Routine Procedures Performed Operation Date: 01/31/25 08:00 Actual Procedures s Venogram, Unilateral - Marianna Lares DO p ICD Insertion Single or Dual - Marianna Lares DO Diagnostic Imagining Performed 01/31/25 08:15 EP Lab Images for PACS ONCE Chest X-Ray 01/24/25 14:18 XR chest 1V portable CLINICAL HISTORY: Chest pain, nonspecific COMPARISON STUDY: 12/29/2024 FINDINGS: Single view portable chest unchanged demonstrating evidence of prior coronary artery bypass surgery and chronic cardiomegaly with left ventricular prominence and associated pulmonary vascular congestion. There is no focal airspace opacity, pneumothorax, or significant pleural effusion. IMPRESSION: Stable exam; chronic cardiomegaly and pulmonary vascular congestion in a patient has had prior coronary artery bypass surgery and a left shoulder joint replacement. ACT 112: Negative or not required by law. Electronically signed by: Rosie Dela Cruz M.D. 01/24/2025 2:50 PM Chest X-Ray 01/31/25 12:30 XR chest 1V portable CLINICAL HISTORY: s/p biv icd ensure no PTX COMPARISON STUDY: 01/24/2025 FINDINGS: Stable CABG. There is an interval left-sided pacemaker/ICD. Stable cardiomegaly without pulmonary vascular congestion. No effusion, consolidation, or pneumothorax. IMPRESSION: No pneumothorax seen. ACT 112: Negative or not required by law. Electronically signed by: Carlito Lopez M.D. 01/31/2025 12:49 PM Pending Results Patient Have Any Pending Studies at Discharge: No Discharge Instructions Given to Patient (Per Discharging Provider) Mr Yoon, Demarcus were seen and treated by the Picking Machine Operator Helper. They made the following changes to your medications after your procedure and pacemaker placement: Amiodarone 200mg daily Warfarin 3mg daily Aspirin 81mg by mouth daily Entresto 26/24 mg, half tablet by mouth 2 times per day Spironolactone 25 mg, half tablet by mouth daily Metoprolol succinate 25 mg twice daily Furosemide 40 mg by mouth daily Tricor/fenofibrate 145 mg by mouth daily Atorvastatin 40 mg by mouth daily Please discontinue your use of the medication Celexa as it can affect your heart but continue with trazodone. Your primary care provider can help with alternatives to your medications for your mood. Cardiology asks that you keep close followup with your textile technical officer as described below. Please also keep close follow up with your regular avionics electronics technician as well as scheduled. Please keep close follow up with the anticoagulation clinic. And finally, please also keep close follow up with your primary care provider after discharge. Please do not hesitate to come back to the emergency room if your symptoms worsen or return. It was a pleasure taking care of you while you were here. Total Time Total Time Spent Total Time Spent (In Minutes): 60
[2025-02-01 14:55] VITALS: BP 99/58; PULSE 69
[2025-02-01] MEDS ORDERED: WARFARIN SOD 3 MG TAB PO SCH (16:00)
[2025-02-02] MEDS ORDERED: AMIODARONE 200 MG TAB PO SCH (09:00)
--- NOTE | 2025-02-12 13:52 | Operative Report ---
Post Operative Report DICTATED BY:Marianna Lares D.O. DATE OF PROCEDURE: 01/31/2025 PREOPERATIVE DIAGNOSES: NSVT, ICM, Chronic heart failure with preserved EF-NYHA Class III POSTOPERATIVE DIAGNOSIS: Same PROCEDURE: A BiV rate responsive implantable cardiac defibrillator, along with a peripheral venogram under fluoroscopic guidance. SURGEON: Marianna Lares DO ASSISTANTS: None. ANESTHESIA: Monitored conscious sedation administered under my supervision by Andreia Serrano. Start time 08:15, end time 10:09, a total of 4 mg of Versed and 75 mcg of fentanyl. INTRAVENOUS FLUIDS: 0 mL. CONTRAST: 10 mL. ANTIBIOTICS: 2 grams of Ancef. ADDITIONAL MEDICATIONS: None BLOOD LOSS: 50 mL. URINE OUTPUT: Not applicable. SPECIMENS: None. FINDINGS: See below. DRAINS: None. COMPLICATIONS: None. CONDITION: Stable. INDICATIONS: This is a 79-year-old gentleman who has a past medical history ischemic cardiomyopathy remote coronary bypass grafting and coronary inventions recently hospitalized for acute hypoxic respiratory failure RSV infection. Presents now with worsening dyspnea and fatigue signs and symptoms of likely acute on chronic systolic heart failure with decline in ejection fraction to the range of 15-20%, IVCD, intermittent left bundle branch block, QRS duration 142 ms, VT. Due to the complex ICM, Acute heart failure, LBBB he was recommended a BiV ICD prior to hospital discharge. A formal shared decision making process was performed with Juanito Yoon at the office visit utilizing the IDECIDE ICD evidence based tool from [employer] [place] [employer]. The discussion that followed was collaborative: detailing the information, risks, and benefits provided by the tool. We also discussed the values and preferences of Maury Dan to build a consensus regarding the preferred treatment plan. A decision was reached to proceed with BiV ICD. CONSENT: Consent was obtained prior to the patient going into the electrophysiology lab. The patient was informed of the risks, benefits, and alternatives to the procedure. Risks include, but not limited to, sudden cardiac , cardiac arrhythmias, cerebrovascular accident, myocardial infarction, injury to his blood vessels, chamber of the heart and lung, bleeding and infection. The patient understood these risks and agreed to the procedure as planned. Informed consent was obtained. DESCRIPTION OF PROCEDURE: The patient was brought into electrophysiology lab in a fasting state. He was connected to continuous cardiac monitoring. A timeout was performed to ensure the patient's identity and procedure correctly. He was prepped and draped in the left infraclavicular space in normal surgical standard fashion. Monitored conscious sedation was given throughout the procedure for the patient's comfort level. Stanley precautions were maintained throughout the procedure. Prophylactic antibiotics were given prior to incision. A 20 mL of 1% lidocaine and bupivacaine mixture were given in the left deltopectoral groove. An incision was made in the left deltopectoral groove. Blunt dissection was performed down to the pectoralis muscle. Then, using blunt dissection over the pectoralis muscle within the pectoral fascia, a pacemaker pocket was created. Then, a peripheral venogram was performed to identify the axillary vein. Venous axillary access was obtained through a needlestick without any problems. A guidewire was inserted without any resistance. Then a second more medial venous axillary access was obtained without any problems and the guidewire was inserted without any resistance. A 6-[employer] Lucian sheath was inserted over the more lateral guidewire without any resistance. Dilator was removed and a second guidewire was inserted through the sheath to allow for retained venous access. Then a 7 [place] sheath was advanced over one of the more lateral guidewires. The guidewire and dilator were removed. Then the defibrillator lead was advanced through the 7 [place] Lucian sheath into the RV and positioned into the RV apex under fluoroscopic guidance. The screw was extended. There was adequate pacing and sensing. There was no diaphragmatic stimulation with high out put pacing. Of note I did have to reposition it. The 7 [place] sheath was peeled away and the lead was fixated to the pectoralis muscle using 0 silk suture. Then a 9 [place] sheath was inserted over the more medial guidewire. The guidewire and dilator were removed. Then, the [employer] 3D large sheath was inserted through the 9-[employer] Lucian sheath over a Glidewire into the right ventricle. The Glidewire and dilator were removed. Then, the left bundle lead was advanced through the sheath and intracardiac electrogram His bundle recordings were performed when the camera was in DE PAZ 10. Once I found where the His bundle is, see below for results, I then moved the camera to DE PAZ 30 and marked where the His bundle was on my fluoroscopy screen. I came down about 2 cm from this in a line that would extend out to the apex and then started coming on pacing. Once I found an area where I had a nice W formed pace complex in my lead V1, I then moved the camera to SERBIAN 40. Then the helix was extended into the septum. Then the helix locking tool was placed. Then the lead was screwed further into the septum while pacing by giving slow clockwise turns. The paced complex changed to a nice R' in V1 and the pacing stim to peak QRS in V6 was good. I then gave contrast through the sheath to see how far the lead was into the septum and then I slit the [employer] 3D large sheath under fluoroscopic guidance and left the 9-[employer] Lucian sheath in while I positioned the right atrial lead. A 6-[employer] Lucian sheath was inserted over the retained guidewire in the more lateral access, the guidewire and dilator removed. The right atrial lead was then advanced into right atrium and positioned into right atrial appendage under fluoroscopic guidance. There was adequate pacing and sensing thresholds and no diaphragmatic stimulation with high output pacing.Of note I did have to reposition it one time. The 6-[employer] Lucian sheath was peeled away and the lead was fixated to the pectoralis muscle using 0 silk suture. The 9-[employer] Lucian sheath around the left bundle lead was peeled away and the lead was fixated to pectoralis muscle using 0 silk suture. The pocket was flushed with copious amounts of vancomycin and saline wash and inspected for hemostasis. The leads were then attached to the pulse generator making sure the pins were in appropriate position, passed set screws, and set screws were all tightened. Pulse generator was then placed in the pocket, making sure the leads were lying flat beneath the device. The incision was closed in a 3-layer fashion using 2-0 Vicryl interrupted suture, followed by 3-0 Vicryl interrupted suture, followed by 4-0 Monocryl running stitch. Then a primaseal dressing was placed EQUIPMENT: 1. Pulse generator is a [employer] Assure Model Number [id number] SN: [id number] 2. Right atrial lead, Kessler SJM Tendril STS [id number] SN: [id number] 3. Defibrillator Lead; Kessler SJM Durata [id number] SN: [id number] 4. Left bundle lead, Kessler SJM Tendril STS SN: [id number] INTRAPROCEDURAL FINDINGS: 1. Right atrial lead, P waves 2.2 millivolts, impedance 419 ohms, threshold 2.0 volts at 0.5 milliseconds. 2. Defibrillator Lead: R waves 9.1mV; impedance 839 ohms; threshold 0.4V @ 0.5ms 3. Left bundle lead, R waves 8.0 millivolts, impedance 520 ohms, threshold 0.7 volts at 0.5 milliseconds. FINAL MEASUREMENTS THROUGH THE DEVICE: 1. Right atrial lead, P waves 2.5 millivolts, impedance 440 ohms, threshold 0.75 volt at 0.4 milliseconds. 2. Defibrillator Lead: R waves 11.3 mV; impedance 800 ohms; threshold 0.75V @ 0.4ms 2. Left bundle lead, impedance 600 ohms, threshold 0.75 volts at 0.4 milliseconds. FINAL PARAMETERS: DDDR 60/120, right atrial and right ventricular (defibrillator lead) amplitude 3.5 volts, pulse width 0.4 milliseconds, sensitivity 0.3mV. Left bundle lead amplitude 3.5 volts, pulse width 0.4 m illiseconds, IMPRESSION: Successful Bi Ventricular rate responsive implantable cardiac defibrillator under fluoroscopic guidance along with peripheral venogram, all under fluoroscopic guidance secondary to NSVT, ICM, LBBB, chronic heart failure with preserved EF, NYHA Class III PLAN: Monitor the patient post-procedure. A 12-lead ECG, chest x-ray. He is not to lift the left elbow or left shoulder for 1 month. He cannot lift more than 10 pounds with the left arm for 2 weeks. He is to keep the dressing on and dry until his wound check next week.
== END 2025-02-01 15:21 | disposition home or self-care (01) | DRG 276 ==
LOC: ED 14:09 → 2S 16:27 → SUATTDRO 16:27 → 2S 19:08
PROC: EPB.ICD (2025-01-31 08:00)
DX: I51.3 Intracardiac thrombosis, not elsewhere classified; Z95.1 Presence of aortocoronary bypass graft; J44.9 Chronic obstructive pulmonary disease, unspecified; I11.0 Hypertensive heart disease with heart failure; I44.7 Left bundle-branch block, unspecified; N40.0 Benign prostatic hyperplasia without lower urinary tract symptoms; K74.60 Unspecified cirrhosis of liver; I47.20 Ventricular tachycardia, unspecified; E11.42 Type 2 diabetes mellitus with diabetic polyneuropathy; E78.5 Hyperlipidemia, unspecified; I50.23 Acute on chronic systolic (congestive) heart failure; I24.89 Other forms of acute ischemic heart disease; E03.9 Hypothyroidism, unspecified; I25.10 Atherosclerotic heart disease of native coronary artery without angina pectoris; I25.5 Ischemic cardiomyopathy; B97.4 Respiratory syncytial virus as the cause of diseases classified elsewhere; E53.8 Deficiency of other specified B group vitamins; E83.42 Hypomagnesemia; I48.0 Paroxysmal atrial fibrillation